=== PATIENT | female | born 1970 | race Caucasian/White ===

== ENCOUNTER 2020-05-01 10:26 | Emergency (ER) | payer OTHER, SELFPAY ==
--- NOTE | 2020-05-01 | XR_ITS ---
EXAMINATION: XR CHEST CLINICAL INFORMATION: Seizure COMPARISON: None TECHNIQUE: 2 views of the chest were obtained. FINDINGS: No significant abnormality is noted involving the heart, lungs, mediastinum, bony thorax or soft tissues. IMPRESSION: Unremarkable examination.
[2020-05-01 11:16] VITALS: BP 118/61; PULSE 69; RESP 18; TEMP 36.9; O2SAT 100; BMI 28.0
--- NOTE | 2020-05-01 12:29 | PC.NURSE ---
SEEN BY PROVIDER AT THIS TIME
[2020-05-01 13:33] VITALS: BP 120/75; PULSE 56; RESP 16; O2SAT 99
[2020-05-01] MEDS: Divalproex Sodium 250 MG TABLET.DR 750 MG PO (13:38)
[2020-05-01] MEDS: 0.9 % Sodium Chloride 1,000 ML 999 ML IVCONT (13:40)
--- NOTE | 2020-05-01 13:41 | PC.NURSE ---
IV EST 20 G R AC. BLOOD AND URINE TO LAB. MEDICATED PER ORDERS
[2020-05-01 13:46] LABS: MANUAL DIFF FLAG NO
[2020-05-01 13:50] LABS: Basophils Absolute Auto 0.1 X10*3/uL (0.0-0.2); Basophils Percent Auto 0.7 % (0-2); Eosinophils Absolute Auto 0.2 X10*3/uL (0.0-0.4); Eosinophils Percent Auto 3.2 % (0-4); Hematocrit 41.5 % (37-47); Hemoglobin 13.3 g/dl (12.0-16.0); Imm Gran Abs Auto 0.02 X10*3/uL (0.00-0.03); Imm Gran Pct Auto 0.3 % (0.0-0.4); Lymphocytes Absolute Auto 1.9 X10*3/uL (1.2-4.9); Lymphocytes Percent Auto 26.7 % (20-40); Mean Corpuscular Hemoglobin 31.7 pg (27.0-33.0); Mean Corpuscular Volume 98.8 fL (80-98); Mean Platelet Volume 9.5 fL (9.4-12.3); Monocytes Absolute Auto 0.7 X10*3/uL (0.1-1.2); Monocytes Percent Auto 10.2 % (2-11); Neutrophils Absolute Auto 4.2 X10*3/uL (2.0-8.3); Neutrophils Percent Auto 58.9 % (45-73); Platelet Count 243 X10*3/uL (160-400); Red Cell Distribution Width 13.3 % (11.0-16.0); White Blood Count 7.1 X10*3/uL (4.8-10.8)
[2020-05-01 14:08] LABS: Glucose Urine UA NEG (NEG); Leukocyte Esterase Urine NEG (NEG); Nitrite Urine NEG (NEG); PH 6.5 (5.0-8.0); Specific Gravity - Urine 1.015 (1.005-1.025); UPreg QC Valid YES; Urine Blood NEG (NEG); Urine Ketones NEG (NEG); Urine Pregnancy NEGATIVE (NEGATIVE); Urine Protein NEG (NEG-TRACE)
[2020-05-01 14:10] LABS: Appearance Urine CLEAR; Color Urine YELLOW; UACC Culture Trigger NO
[2020-05-01 14:20] LABS: Alanine Aminotransferase 12 U/L (0-31); Albumin Level 3.9 g/dL (3.5-5.0); Alkaline Phosphatase 54 U/L (39-117); Anion Gap 12 (12-20); Aspartate Amino Transferase 18 U/L (5-31); Bilirubin Direct 0.2 mg/dL (0.0-0.5); Bilirubin Total 0.4 mg/dL (0.0-1.0); Blood Urea Nitrogen 11 mg/dL (9-16); Carbon Dioxide 27 mmol/L (22-29); Chloride 102 mmol/L (96-108); Creatinine Clr Calc Pharmacy 87.5; Estimated Glomerular Filt Rate > 60; Glucose Random 90 mg/dL (60-115); Magnesium 1.9 mg/dL (1.6-2.6); Potassium 4.9 mmol/l (3.3-5.1); Sodium 136 mmol/L (135-145); Total Protein 7.7 g/dL (6.5-8.0)
[2020-05-01 14:24] LABS: B Type Natriuretic Peptide 44 pg/mL (<100); Troponin-I High Sensitivity < 3.5 ng/L (<3.5-17.0)
--- NOTE | 2020-05-01 14:44 | ED_ITS ---
HPI - Seizure General Chief Complaint: Seizure Stated Complaint: FEVER Time Seen by Provider: 05/01/20 12:26 Source: patient Mode of arrival: ambulatory History of Present Illness HPI Narrative: 49-year-old female with a past medical history of epilepsy, fibromyalgia complaining of seizure last night and last week s/p running out of Depakote 2 weeks ago. Reports difficulty with insurance and has been unable to get medications refilled. Normally takes 750 mg of Depakote b.i.d., over the past 2 weeks has been skipping a day due to decreased medications and no access to medical care. Denies head trauma during incident. Reports usually happens during sleep. Denies recent illness, fever, chills, CP/ SOB, abdominal pain, nausea /vomiting, weakness MD complaint: seizure Onset (ago): week(s) Related Data Previous Rx's Medication Instructions Recorded divalproex [Depakote] 750 mg PO BID 30 Days #90 tab 05/01/20 Allergies Allergy/AdvReac Type Severity Reaction Status Date / Time aspirin [ASA] Allergy Difficulty Verified 05/01/20 11:15 Swallowing Review of Systems Review of Systems: Yes all other systems are reviewed and are negative Constitutional: Constitutional: Reports as per HPI, Reports no additional constitutional complaints, Denies chills, Denies fever(s) and Reports headache(s) Eyes: Eyes: Reports as per HPI and Reports no additional eye complaints ENT: Reports system reviewed and no additional complaints, except as documented, Reports as per HPI, Reports headache(s) and Denies sore throat Cardiovascular: Cardiovascular: Reports as per HPI, Reports no additional cardiovascular complaints, Denies chest pain, Denies edema, Denies dyspnea and Denies dyspnea on exertion Respiratory: Respiratory: Reports as per HPI, Reports no additional respiratory complaints, Denies chest congestion, Denies cough, Denies dyspnea and Denies dyspnea on exertion Gastrointestinal: Gastrointestinal: Reports as per HPI, Denies abdominal pain, Denies diarrhea, Denies nausea and Denies vomiting Genitourinary: Genitourinary: Denies hematuria and Denies flank pain Musculoskeletal: Musculoskeletal: Reports as per HPI, Denies numbness and Denies tingling Integumentary/Breasts: Skin/Breast: Denies rash Neurologic: Denies Abnormal speech present, Reports headache(s), Denies numbness, Reports seizure-like activity, Denies Sensory deficit (Neuro) and Denies tingling Psychiatric: Psychiatric: Reports no additional psychiatric complaints PMFSH Past Medical History Attestation statement: The following information was validated with the patient. Medical History Fibromyalgia Seizure Social History Social History Advance Directives: No Advance Directives Information Provided: Yes Physical Exam Vital Signs and I&O and Narrative: Vital Signs and I&O: Vital Signs Temp 98.5 F 05/01/20 11:16 Pulse 56 05/01/20 13:33 Resp 16 05/01/20 13:33 BP 120/75 05/01/20 13:33 Pulse Ox 99 05/01/20 13:33 Intake & Output 04/30/20 05/01/20 05/01/20 18:59 06:59 18:59 Intake Total 1000 / 1000 Balance 1000 / 1000 Weight 69.4 kg Intake: Intake, IV Amoun t 1000 / 1000 0.9 % Sodium C hloride 1,000 ml 1000 / 1000 @ 999 mls/hr I VCONT .Q1H1M [facility] Rx#:[id number] Body Mass Index 28.0 Const: General: cooperative and healthy appearing Orientation/ consciousness: patient oriented x3 Limitations: no limitations HENMT: Head: Yes normal to inspection Ears: hearing grossly normal bilaterally General nose exam: Normal external nose present Face and sinus: Yes normal facial exam Eyes: General: appearance normal, both eyes and all related structures EOM: EOMs intact bilaterally Neck: Neck: Yes normal visual inspection Resp: Effort & Inspection: normal respiratory effort and no stridor Auscultation: clear to auscultation bilaterally, no crackles, no rales, no rhonchi and no wheezes Cardio: Rate: regular rate Heart sounds: S1 normal heart sound present and S2 normal heart sound present Peripheral pulses: Peripheral pulses 2+ throughout GI: Inspection: Yes normal to inspection Palpation (GI): Soft to palpation, nontender, no guarding and not rigid Skin: Wounds: no wounds Neuro: General: patient oriented x3 Cranial nerves: Yes CN's II-XII intact bilaterally Cognition (Neuro): normal cognition Speech: No Abnormal speech present Gait exam (Neuro): Normal gait present Motor exam (neuro): 5/5 motor strength present throughout Sensory Exam: No Sensory deficit (Neuro) Extrem: General: Yes normal to inspection Course Course Course Narrative: Reevaluation(s) Reevaluation #1: labs unremarkable, troponin negative, UA negative, depakote level low, CXR unremarkable Lab and imaging results discussed with patient including worrisome signs and symptoms and strict return precautions. She verbalized understanding feel safe for discharge. Neurology follow-up discussed Time: 14:56 MDM - Seizure MDM Narrative Medical decision making narrative: 49-year-old female with a past medical history of epilepsy, fibromyalgia complaining of seizure last night and last w [place] s/p running out of Depakote 2 weeks ago. on exam VSS, NAD/ well-appearing. No focal neuro deficits. Breakthrough seizures likely from medication noncompliance for low concern for intracranial abnormality, metabolic abnormalities or infectious etiology Plan: Labs, EKG, CXR, difficult level, give Depakote home medication, anticipate DC home Differential Diagnosis Differential diagnosis: Likely generalized seizure and epileptic seizure Medical Records Attestation: I reviewed the patient's medical records. Lab Data Result diagrams: 05/01/20 13:31 05/01/20 13:31 Labs: Lab Results 05/01/20 05/01/20 05/01/20 Range/Units 13:22 13:31 13:31 WBC 7.1 (4.8-10.8) X10*3/uL RBC 4.20 (4.20-5.50) X10*6/uL Hgb 13.3 (12.0-16.0) g/dl Hct 41.5 (37-47) % MCV 98.8 H (80-98) fL MCH 31.7 (27.0-33.0) pg MCHC 32.0 (31.0-35.0) g/dl RDW 13.3 (11.0-16.0) % Plt Count 243 (160-400) X10*3/uL MPV 9.5 (9.4-12.3) fL Immature Gran % (Auto) 0.3 (0.0-0.4) % Neut % (Auto) 58.9 (45-73) % Lymph % (Auto) 26.7 (20-40) % [place] % (Auto) 10.2 (2-11) % Eos % (Auto) 3.2 (0-4) % Baso % (Auto) 0.7 (0-2) % Neut # (Auto) 4.2 (2.0-8.3) X10*3/uL Lymph # (Auto) 1.9 (1.2-4.9) X10*3/uL [place] # (Auto) 0.7 (0.1-1.2) X10*3/uL Eos # (Auto) 0.2 (0.0-0.4) X10*3/uL Baso # (Auto) 0.1 (0.0-0.2) X10*3/uL Abs Immat Gran (auto) 0.02 (0.00-0.03) X10*3/uL Absolute Nucleated RBC 0.000 (0.0-0.012) X10*3/uL Nucleated RBC % (auto) 0.0 (0.0-0.2) /100WBC Sodium 136 (135-145) mmol/L Potassium 4.9 (3.3-5.1) mmol/l Chloride 102 (96-108) mmol/L Carbon Dioxide 27 (22-29) mmol/L Anion Gap 12 (12-20) BUN 11 (9-16) mg/dL Creatinine 0.71 (0.5-1.4) mg/dL Estim Creat Clear Calc 87.5 Estimated GFR > 60 Random Glucose 90 (60-115) mg/dL Calcium 9.0 (8.4-10.2) mg/dL Magnesium 1.9 (1.6-2.6) mg/dL Total Bilirubin 0.4 (0.0-1.0) mg/dL Direct Bilirubin 0.2 (0.0-0.5) mg/dL AST 18 (5-31) U/L ALT 12 (0-31) U/L Alkaline Phosphatase 54 (39-117) U/L Troponin I High Sens (<3.5-17.0) ng/L B-Natriuretic Peptide (<100) pg/mL Total Protein 7.7 (6.5-8.0) g/dL Albumin 3.9 (3.5-5.0) g/dL Urine Color YELLOW Urine Appearance CLEAR Urine pH 6.5 (5.0-8.0) Ur Specific [place] 1.015 (1.005-1.025) Urine Protein NEG (NEG-TRACE) MG/DL Urine Glucose (UA) NEG (NEG) MG/DL Urine Ketones NEG (NEG) MG/DL Urine Blood NEG (NEG) Urine Nitrite NEG (NEG) Ur Leukocyte Esterase NEG (NEG) Urine Test NEGATIVE (NEGATIVE) Valproic Acid (50.0-100.0) mcg/mL 05/01/20 05/01/20 05/01/20 Range/Units 13:32 13:32 13:32 WBC (4.8-10.8) X10*3/uL RBC (4.20-5.50) X10*6/uL Hgb (12.0-16.0) g/dl Hct (37-47) % MCV (80-98) fL MCH (27.0-33.0) pg MCHC (31.0-35.0) g/dl RDW (11.0-16.0) % Plt Count (160-400) X10*3/uL MPV (9.4-12.3) fL Immature Gran % (Auto) (0.0-0.4) % Neut % (Auto) (45-73) % Lymph % (Auto) (20-40) % [place] % (Auto) (2-11) % Eos % (Auto) (0-4) % Baso % (Auto) (0-2) % Neut # (Auto) (2.0-8.3) X10*3/uL Lymph # (Auto) (1.2-4.9) X10*3/uL [place] # (Auto) (0.1-1.2) X10*3/uL Eos # (Auto) (0.0-0.4) X10*3/uL Baso # (Auto) (0.0-0.2) X10*3/uL Abs Immat Gran (auto) (0.00-0.03) X10*3/uL Absolute Nucleated RBC (0.0-0.012) X10*3/uL Nucleated RBC % (auto) (0.0-0.2) /100WBC Sodium (135-145) mmol/L Potassium (3.3-5.1) mmol/l Chloride (96-108) mmol/L Carbon Dioxide (22-29) mmol/L Anion Gap (12-20) BUN (9-16) mg/dL Creatinine (0.5-1.4) mg/dL Estim Creat Clear Calc Estimated GFR Random Glucose (60-115) mg/dL Calcium (8.4-10.2) mg/dL Magnesium (1.6-2.6) mg/dL Total Bilirubin (0.0-1.0) mg/dL Direct Bilirubin (0.0-0.5) mg/dL AST (5-31) U/L ALT (0-31) U/L Alkaline Phosphatase (39-117) U/L Troponin I High Sens < 3.5 (<3.5-17.0) ng/L B-Natriuretic Peptide 44 (<100) pg/mL Total Protein (6.5-8.0) g/dL Albumin (3.5-5.0) g/dL Urine Color Urine Appearance Urine pH (5.0-8.0) Ur Specific [place] (1.005-1.025) Urine Protein (NEG-TRACE) MG/DL Urine Glucose (UA) (NEG) MG/DL Urine Ketones (NEG) MG/DL Urine Blood (NEG) Urine Nitrite (NEG) Ur Leukocyte Esterase (NEG) Urine Test (NEGATIVE) Valproic Acid < 2.0 L (50.0-100.0) mcg/mL Discharge Plan Discharge Clinical Impression: Epileptic seizure Patient Disposition: Home, Self-Care Instructions: Epilepsy (ED) Additional Instructions: you need to start taking your seizure medications correctly. You need to establish care with a neurologist / PCP see you can have her medications refilled appropriately If you continue to have seizures, have another seizure, hit her head, develops fever, chest pain, shortness of breath return to the ED immediately Prescriptions: New divalproex [Depakote] 500 mg tablet,delayed release (DR/EC) 750 mg PO BID 30 Days Qty: 90 RF: 0 Referrals: Rajinder Byrd MD [Physician] - 2 days Print Language: Taiwanese
[2020-05-01 14:48] LABS: Valproate < 2.0 mcg/mL (50.0-100.0)
[2020-05-01 15:40] VITALS: BP 125/72; PULSE 57
--- NOTE | 2020-05-01 15:40 | PC.NURSE ---
CLEARED FOR DC BY PROVIDER
== END 2020-05-01 15:47 | disposition home or self-care (01) ==
PROVIDERS: Physician Assistant; Emergency Provider Emergency Medicine; PCP Nurse Practitioner Family
DX: G40.909 Epilepsy, unspecified, not intractable, without status epilepticus (principal); Z79.899 Other long term (current) drug therapy
CPT/HCPCS: 36415; 71046; 80048; 80076; 80164; 81003; 81025; 83735; 83880; 84484; 85025; 96360; 99284

== ENCOUNTER 2020-07-03 09:18 | Outpatient (REF) | payer OTHER, SELFPAY ==
--- NOTE | 2020-07-03 09:25 | XR_ITS ---
EXAMINATION: BILATERAL FOOT X-RAY CLINICAL INFORMATION: Pain COMPARISON: None TECHNIQUE: 3 views each foot FINDINGS: Bone alignment is normal. No fracture or dislocation is seen. The joint spaces are normal. There are bilateral plantar calcaneal spurs. Soft tissues are otherwise normal. XR/XR foot RT min 3V IMPRESSION: Bilateral plantar calcaneal spurs.
--- NOTE | 2020-07-03 09:25 | XR_ITS ---
EXAMINATION: BILATERAL FOOT X-RAY CLINICAL INFORMATION: Pain COMPARISON: None TECHNIQUE: 3 views each foot FINDINGS: Bone alignment is normal. No fracture or dislocation is seen. The joint spaces are normal. There are bilateral plantar calcaneal spurs. Soft tissues are otherwise normal. XR/XR foot LT min 3V IMPRESSION: Bilateral plantar calcaneal spurs.
== END 2020-07-03 09:19 | disposition home or self-care (01) ==
LOC: HO.XRAY 09:18
PROVIDERS: Visit Provider Registered Nurse
DX: G89.29 Other chronic pain (principal); M79.671 Pain in right foot; M79.672 Pain in left foot
CPT/HCPCS: 73630

== ENCOUNTER 2020-08-18 10:43 | Outpatient (REF) | payer OTHER, SELFPAY | END 2020-08-18 10:44 | disposition home or self-care (01) | LOC: HO.LAB 10:43 | PROVIDERS: Visit Provider Internal Medicine | DX: Z20.822 Contact with and (suspected) exposure to COVID-19 (principal) | CPT/HCPCS: 36415; C9803; U0003 ==

== ENCOUNTER 2020-08-29 10:08 | Outpatient (REF) | payer OTHER, SELFPAY | END 2020-08-29 10:09 | disposition home or self-care (01) | LOC: HO.LAB 10:08 | PROVIDERS: Visit Provider Internal Medicine | DX: Z20.822 Contact with and (suspected) exposure to COVID-19 (principal) | CPT/HCPCS: 36415; C9803; U0003; U0005 ==

== ENCOUNTER 2020-12-14 14:31 | Outpatient (REF) | payer OTHER, SELFPAY | END 2020-12-14 14:32 | disposition home or self-care (01) | LOC: HO.LAB 14:31 | PROVIDERS: Visit Provider Internal Medicine | DX: Z20.822 Contact with and (suspected) exposure to COVID-19 (principal) | CPT/HCPCS: C9803; U0003; U0005 ==

== ENCOUNTER 2021-08-15 12:52 | Outpatient (REF) | payer OTHER, SELFPAY ==
[2021-08-16 10:53] LABS: CT PCR NOT DETECTED (Not Detect.); NG PCR NOT DETECTED (Not Detect.)
[2021-08-20 12:56] LABS: HPV mRNA E6/E7 rflx Not Detected (Not Detected)
== END 2021-08-15 12:53 | disposition home or self-care (01) ==
LOC: HO.LAB 12:52
PROVIDERS: PCP Registered Nurse; Visit Provider Obstetrics & Gynecology
DX: Z01.411 Encounter for gynecological examination (general) (routine) with abnormal findings (principal); Z11.51 Encounter for screening for human papillomavirus (HPV); N93.9 Abnormal uterine and vaginal bleeding, unspecified
CPT/HCPCS: 87491; 87591; 87624; 88142

== ENCOUNTER 2021-09-04 14:57 | Outpatient (REF) | payer OTHER, SELFPAY | END 2021-09-04 14:58 | disposition home or self-care (01) | LOC: HO.LAB 14:57 | PROVIDERS: PCP Registered Nurse; Visit Provider Obstetrics & Gynecology | DX: N93.9 Abnormal uterine and vaginal bleeding, unspecified (principal) | CPT/HCPCS: 58100; 88305 ==

== ENCOUNTER 2021-09-12 13:33 | Outpatient (REF) | payer OTHER, SELFPAY ==
--- NOTE | ~2021-09-12 | US_ITS ---
EXAMINATION: US PELVIS CLINICAL INFORMATION: Abnormal uterine and vaginal bleeding. COMPARISON: Previous pelvic ultrasound June [address] of the abdomen and pelvis November 2018 TECHNIQUE: Ultrasound of the pelvis is performed using both transabdominal and transvaginal transducers along with Doppler. Transvaginal imaging is performed due to inadequate visualization transabdominally. FINDINGS: The uterus is anteverted and measures 10.6 x 5 x 6.4 cm in dimension. No focal uterine lesion is seen. There are multiple mixed hypoechoic and hyperechoic lesions in the uterus suggestive of fibroids. At least 7 focal uterine lesions are seen. This is increased from 5 on the June 2018 exam. These measure 3.2 x 3.2 x 3.7 cm in the left anterior lower uterine segment compared to 2.8 x 3 x 2.9 cm. 3.6 x 2.2 x 2.8 cm in the right posterior lower uterine segment compared to 2.8 x 3 x 3.9 cm on previous exam. 3.5 x 2.9 x 3.4 cm in the posterior uterine body compared to 3.6 x 3.4 cm on previous exam. New intramural 1.3 x 1.8 x 1.2 cm fibroid in the upper posterior uterine body and 1.2 x 1.2 x 1.4 cm in the upper posterior uterine body near the endometrium. 2.6 x 1.5 x 2.7 cm in the posterior uterine fundus compared to 2.1 x 1.9 x 1.6 cm and 2.3 x 2.2 x 2.2 cm in the left anterior uterine fundus. The endometrium does not appear thickened. Endometrial thickness measures 0.9 cm. There are nabothian cysts in the cervix. The right ovary measures 3 x 1.5 x 2.7 cm. There is a 2.4 x 1.7 x 1.7 cm simple right ovarian cyst. The left ovary is normal-appearing and measures 2.6 x 1 x 1.9 cm. There is no fluid in the pelvis. US/US pelvic and transvaginal IMPRESSION: Enlarged fibroid uterus. Small simple right ovarian cyst.
== END 2021-09-12 13:34 | disposition home or self-care (01) ==
LOC: HO.US 13:33
PROVIDERS: Visit Provider Obstetrics & Gynecology
DX: K43.2 Incisional hernia without obstruction or gangrene (principal); N93.9 Abnormal uterine and vaginal bleeding, unspecified
CPT/HCPCS: 76830; 76856; 99202

== ENCOUNTER 2021-09-19 15:47 | Outpatient (REF) | payer OTHER, SELFPAY ==
--- NOTE | ~2021-09-19 | MM_ITS ---
EXAMINATION: MM SCREENING DIGITAL BREAST TOMOSYNTHESIS, BILATERAL CLINICAL INFORMATION: Screening. Asymptomatic. The lifetime risk of breast cancer based on the Tyrer-Cuzick Model is 8.1%. COMPARISON: Mammography: 11/01/2018 and studies dating back to 09/27/2010. TECHNIQUE: Digital breast tomosynthesis was performed in both the craniocaudal and mediolateral oblique views along with computer-aided detection (CAD). Synthesized 2D images were generated from the tomosynthesis. FINDINGS: There are scattered areas of fibroglandular density (ACR BI-RADS breast composition Category b). There is a stable parenchymal pattern of the left breast with no new abnormal dominant mass or suspicious grouping of microcalcifications. Within the anterior lateral aspect of the right breast, there is a region of architectural distortion which is more prominent than on the prior study and for which a spot compression view and possible ultrasound are recommended. I do not definitely see a correlate on the mediolateral oblique projection. MM/MM tomosynthesis screening BI IMPRESSION: Right breast density for further evaluation as described above. ASSESSMENT: BI-RADS 0: Incomplete - Need Additional Imaging Evaluation RECOMMENDATION: 1. Additional views of the right breast. 2. Targeted ultrasound if warranted after review of the additional views. 3. Radiology department staff will contact the patient for additional imaging.
== END 2021-09-19 15:48 | disposition home or self-care (01) ==
LOC: HO.MAMMO 15:47
PROVIDERS: Visit Provider Obstetrics & Gynecology
DX: Z12.31 Encounter for screening mammogram for malignant neoplasm of breast (principal)
CPT/HCPCS: 77063; 77067

== ENCOUNTER → 2021-09-26 15:40 | Outpatient (BNVA) | payer OTHER, SELFPAY | PROVIDERS: Visit Provider Obstetrics & Gynecology ==

== ENCOUNTER 2021-10-01 14:39 | Outpatient (REF) | payer OTHER, SELFPAY ==
--- NOTE | ~2021-10-01 | MM_ITS ---
EXAMINATION: MM DIAGNOSTIC DIGITAL BREAST TOMOSYNTHESIS, RIGHT CLINICAL INFORMATION: Question of subtle architectural changes anterior lateral right breast on recent screening mammography. COMPARISON: Mammography: 09/19/2021, 11/01/2018, 08/19/2016, 06/29/2014 TECHNIQUE: Digital breast tomosynthesis is performed. 2D images are generated from the tomosynthesis. The following views are obtained: Exaggerated CC, spot CC, rolled CC x2. FINDINGS: There are scattered areas of fibroglandular density (ACR BI-RADS breast composition Category b). The additional views show no focal architectural abnormality, mass, or developing density from prior studies. There are no significant changes. Results are discussed with the patient at time of visit. MM/MM tomosynthesis added views R IMPRESSION: Additional views show no significant changes from prior studies. No architectural abnormality. ASSESSMENT: BI-RADS 1: Negative RECOMMENDATION: Routine annual mammography screening. This patient's information was entered into a reminder system with a target due date for their next mammogram.
== END 2021-10-01 14:40 | disposition home or self-care (01) ==
LOC: HO.MAMMO 14:39
PROVIDERS: Visit Provider Obstetrics & Gynecology
DX: N64.89 Other specified disorders of breast (principal)
CPT/HCPCS: 77061; 77065

== ENCOUNTER 2021-10-07 11:45 | Outpatient (REF) | payer OTHER, SELFPAY ==
--- NOTE | ~2021-10-07 | CT_ITS ---
EXAMINATION: CT ABDOMEN AND PELVIS WITH CONTRAST CLINICAL INFORMATION: Incisional hernia without obstruction or gangrene. COMPARISON: None TECHNIQUE: Multidetector volumetric images were obtained from the superior aspect of the liver through the pubic symphysis following administration 85 mL of Omnipaque 350 intravenous and 500 mL oral contrast. Sagittal and coronal reformatted images were obtained on the technologist's workstation. Oral contrast: No This CT examination was performed using dose optimization techniques as appropriate, variously including the following: *Automated exposure control *Adjustment of mA and/or kV according to patient size (this includes techniques or standardized protocols for targeted exams where dose is matched to indication/reason for exam; i.e. extremities or head) *Use of iterative reconstruction technique DLP: 443 mGy-cm FINDINGS: LUNG BASES: Minimal atelectatic changes are seen in left lung base. Heart size is normal. LIVER, GALLBLADDER, AND BILIARY TREE: The liver is normal in size, shape, and attenuation. No focal hepatic lesion or biliary ductal dilatation is present. The gallbladder has been surgically removed. PANCREAS: Unremarkable. SPLEEN: Unremarkable. ADRENAL GLANDS: Unremarkable. KIDNEYS AND URETERS: The kidneys are normal in size, shape, and attenuation. No hydronephrosis, hydroureter, or calculi seen. No perinephric stranding. BLADDER: Unremarkable. GASTROINTESTINAL TRACT: There is scattered stool and oral contrast seen throughout the colon without distention. The small bowel loops are of normal caliber. Appendix is of normal caliber. No inflammatory process, free air or free fluid seen. ABDOMINAL WALL: A small umbilical hernia containing fat is noted. LYMPH NODES: Unremarkable. VASCULAR: Unremarkable. PELVIC VISCERA: The uterus is enlarged and lumpy bumpy with multiple hypodense fibroids, the largest along the posterior lower body of the uterus measuring 4 cm. There is no free fluid. No adnexal mass is seen. OSSEOUS STRUCTURES: Unremarkable. CT/CT abdomen pelvis w con IMPRESSION: Enlarged lumpy bumpy uterus suggestive of fibroid disease. The largest fibroid measures 4 cm. Mild hypervascularity is present. Cholecystectomy. Small umbilical hernia containing fat. Fleischner guidelines were followed.
[2021-10-07 12:14] LABS: Blood Urea Nitrogen 12 mg/dL (9-16); Estimated Glomerular Filt Rate > 60
[2021-10-07] MEDS: iohexoL 350 MG/ML 100 ML INFUS..BTL 85 ML IV (15:33)
[2021-10-07] MEDS: Barium Sulfate Oral (Vanilla) 450 ML ORAL.SUSP 900 ML PO (15:34)
== END 2021-10-07 11:46 | disposition home or self-care (01) ==
LOC: HO.CT 11:45
PROVIDERS: Visit Provider Surgery
DX: K43.2 Incisional hernia without obstruction or gangrene (principal)
CPT/HCPCS: 36415; 74177; 82565; 84520; Q9967

== ENCOUNTER → 2021-10-22 15:46 | Outpatient (BNVA) | payer OTHER, SELFPAY | PROVIDERS: Visit Provider Surgery | DX: K42.9 Umbilical hernia without obstruction or gangrene (principal) | CPT/HCPCS: 99212 ==

== ENCOUNTER → 2021-12-02 15:20 | Outpatient (BNVA) | payer OTHER, SELFPAY | PROVIDERS: Visit Provider Nurse Practitioner | DX: Z12.11 Encounter for screening for malignant neoplasm of colon (principal); Z86.19 Personal history of other infectious and parasitic diseases | CPT/HCPCS: 99202 ==

== ENCOUNTER 2021-12-03 15:45 | Outpatient (REF) | payer OTHER, SELFPAY ==
[2021-12-03 15:56] LABS: MANUAL DIFF FLAG NO
[2021-12-03 16:04] LABS: Basophils Percent Auto 0.5 % (0-2); Eosinophils Absolute Auto 0.2 X10*3/uL (0.0-0.4); Eosinophils Percent Auto 2.7 % (0-4); Hematocrit 37.2 % (37.0-47.0); Hemoglobin 11.8 g/dl (12.0-16.0); Imm Gran Abs Auto 0.04 X10*3/uL (0.00-0.03); Imm Gran Pct Auto 0.5 % (0.0-0.4); Lymphocytes Absolute Auto 1.8 X10*3/uL (1.2-4.9); Lymphocytes Percent Auto 23.9 % (20-40); Mean Corpuscular HGB Conc 31.7 g/dl (31.0-35.0); Mean Corpuscular Hemoglobin 30.8 pg (27.0-33.0); Mean Corpuscular Volume 97.1 fL (80.0-98.0); Mean Platelet Volume 9.2 fL (9.4-12.3); Monocytes Absolute Auto 0.9 X10*3/uL (0.1-1.2); Monocytes Percent Auto 11.8 % (2-11); Neutrophils Absolute Auto 4.7 x10*3/uL (2.0-8.3); Neutrophils Percent Auto 60.6 % (45-73); Platelet Count 235 X10*3/uL (160-400); Red Blood Count 3.83 X10*6/uL (4.20-5.50); Red Cell Distribution Width 14.6 % (11.0-16.0); White Blood Count 7.7 X10*3/uL (4.8-10.8)
[2021-12-03 16:28] LABS: Alanine Aminotransferase 12 U/L (0-31); Albumin Level 3.4 g/dL (3.5-5.0); Alkaline Phosphatase 53 U/L (39-117); Anion Gap 9 (12-20); Aspartate Amino Transferase 18 U/L (5-31); Bilirubin Total 0.2 mg/dL (0.0-1.0); Blood Urea Nitrogen 15 mg/dL (9-16); Calcium 8.6 mg/dL (8.4-10.2); Carbon Dioxide 28 mmol/L (22-29); Chloride 102 mmol/L (96-108); Estimated Glomerular Filt Rate > 60; Glucose Random 82 mg/dL (60-115); Potassium 4.4 mmol/L (3.3-5.1); Sodium 135 mmol/L (135-145)
[2021-12-04 04:16] LABS: HBS Num1 3.15 mIU/mL (0-7.99); HBc Num1 0.11 S/CO (0.00-0.79); HBsAGNum1 0.18 S/CO (0.00-0.99); Hepatitis B Core Antibody Nonreactive (Nonreactive); Hepatitis B Surface Antigen Negative (Negative); ~HepC Num1 0.12 S/CO (0.00-0.79); ~Hepatitis B Surface Antibody NONREACTIVE (Nonreactive); ~Hepatitis C Antibody Nonreactive (Nonreactive)
[2021-12-04 04:17] LABS: Hepatitis A Antibody IgM 0.37 Index (0-0.79); ~Hepatitis A Antibody IgM Nonreactive (Nonreactive)
== END 2021-12-03 15:46 | disposition home or self-care (01) ==
LOC: HO.LAB 15:45
PROVIDERS: Visit Provider Nurse Practitioner
DX: Z12.11 Encounter for screening for malignant neoplasm of colon (principal); Z86.19 Personal history of other infectious and parasitic diseases
CPT/HCPCS: 36415; 80053; 85025; 86704; 86706; 86709; 86803; 87340

== ENCOUNTER 2022-02-22 07:28 | Outpatient (REF) | payer OTHER, SELFPAY ==
[2022-02-22 07:49] LABS: MANUAL DIFF FLAG NO
[2022-02-22 08:35] LABS: Basophils Percent Auto 0.4 % (0-2); Eosinophils Absolute Auto 0.2 X10*3/uL (0.0-0.4); Eosinophils Percent Auto 3.3 % (0-4); Hematocrit 37.6 % (37.0-47.0); Imm Gran Abs Auto 0.02 X10*3/uL (0.00-0.03); Imm Gran Pct Auto 0.4 % (0.0-0.4); Lymphocytes Absolute Auto 1.5 X10*3/uL (1.2-4.9); Lymphocytes Percent Auto 29.7 % (20-40); Mean Corpuscular HGB Conc 31.9 g/dl (31.0-35.0); Mean Corpuscular Hemoglobin 30.6 pg (27.0-33.0); Mean Corpuscular Volume 95.9 fL (80.0-98.0); Mean Platelet Volume 9.6 fL (9.4-12.3); Monocytes Absolute Auto 0.6 X10*3/uL (0.1-1.2); Monocytes Percent Auto 11.7 % (2-11); Neutrophils Absolute Auto 2.8 x10*3/uL (2.0-8.3); Neutrophils Percent Auto 54.5 % (45-73); Platelet Count 174 X10*3/uL (160-400); Red Blood Count 3.92 X10*6/uL (4.20-5.50); Red Cell Distribution Width 13.8 % (11.0-16.0); White Blood Count 5.1 X10*3/uL (4.8-10.8)
[2022-02-22 08:44] LABS: Estimated Average Glucose 111 mg/dL; Hemoglobin A1c % 5.5 %
[2022-02-22 09:03] LABS: Alanine Aminotransferase 21 U/L (0-31); Albumin Level 3.5 g/dL (3.5-5.0); Alkaline Phosphatase 53 U/L (39-117); Anion Gap 13 (12-20); Aspartate Amino Transferase 22 U/L (5-31); Bilirubin Total 0.2 mg/dL (0.0-1.0); Blood Urea Nitrogen 15 mg/dL (9-16); Calcium 8.9 mg/dL (8.4-10.2); Carbon Dioxide 26 mmol/L (22-29); Chloride 106 mmol/L (96-108); Cholesterol 210 mg/dL; Estimated Glomerular Filt Rate > 60; Glucose Random 89 mg/dL (60-115); HDL Cholesterol 47 mg/dL; LDL Cholesterol Calculated 137 mg/dl; Potassium 4.4 mmol/L (3.3-5.1); Sodium 141 mmol/L (135-145); Total Protein 6.9 g/dL (6.5-8.0); Triglycerides 133 mg/dL
[2022-02-22 09:25] LABS: TSH reflex Free T4 2.68 uIU/mL (0.32-4.0)
[2022-02-24 04:46] LABS: HIV AB/AG Nonreactive (Nonreactive); HIV Num 1 0.06 S/CO (0.00-0.99)
[2022-02-24 04:47] LABS: ~HepC Num1 0.08 S/CO (0.00-0.79); ~Hepatitis C Antibody Nonreactive (Nonreactive)
[2022-02-24 06:19] LABS: Syphilis Screen Nonreactive (Nonreactive)
== END 2022-02-22 07:29 | disposition home or self-care (01) ==
LOC: HO.LAB 07:28
PROVIDERS: PCP Registered Nurse; Visit Provider Registered Nurse
DX: Z00.00 Encounter for general adult medical examination without abnormal findings (principal); Z11.4 Encounter for screening for human immunodeficiency virus [HIV]; A04.8 Other specified bacterial intestinal infections
CPT/HCPCS: 36415; 80053; 80061; 83036; 84443; 85025; 86780; 86803; 87389

== ENCOUNTER 2022-04-01 15:22 | Outpatient (REF) | payer OTHER, SELFPAY ==
--- NOTE | ~2022-04-01 | US_ITS ---
EXAMINATION: US PELVIS CLINICAL INFORMATION: Abnormal bleeding COMPARISON: Previous CT of the abdomen and pelvis most recent 2021 and pelvic ultrasound August 2021 TECHNIQUE: Ultrasound of the pelvis is performed using both transabdominal and transvaginal transducers along with Doppler. Transvaginal imaging is performed due to inadequate visualization transabdominally. FINDINGS: Uterus is anteverted and measures 9.4 x 6.7 x 6.1 m dimension. There are multiple uterine fibroids. Largest fibroids measure 2.5 x 2.2 x 3 cm in the posterior uterine body, 2.6 x 1.8 x 2.9 cm in the anterior uterine body and 2.1 x 1.6 x 1.9 cm in the posterior uterine fundus. Endometrial thickness is normal measuring 0.7 cm. The right ovary is not seen. The left ovary is normal and measures 2 x 0.8 x 1 cm. There is no fluid in the pelvis. US/US pelvic and transvaginal IMPRESSION: Fibroid uterus. Normal thickness endometrium measuring 0.7 cm. Right ovary not seen. Normal left ovary.
== END 2022-04-01 15:23 | disposition home or self-care (01) ==
LOC: HO.US 15:22
PROVIDERS: Visit Provider Obstetrics & Gynecology
DX: N93.9 Abnormal uterine and vaginal bleeding, unspecified (principal)
CPT/HCPCS: 76830; 76856

== ENCOUNTER → 2022-04-07 15:42 | Outpatient (BNVA) | payer OTHER, SELFPAY | PROVIDERS: PCP Registered Nurse; Visit Provider Obstetrics & Gynecology | DX: D21.9 Benign neoplasm of connective and other soft tissue, unspecified (principal) | CPT/HCPCS: 99212 ==

== ENCOUNTER 2022-05-28 10:34 | Day surgery (SDC) | payer OTHER, SELFPAY ==
[2022-05-23 15:29] VITALS: BMI 26.6
--- NOTE | 2022-05-27 12:05 | P.CONAN_ITS ---
HPI - Anesthesia Eval Consult details Narrative: 51yo F for Colonoscopy PMFSH Active Problems Active Problems: All Active Problems (Updated 05/23/22 @ 15:48 by Michelle Ordonez RN) Female pelvic pain (Acute) Well woman exam (Acute) Abnormal uterine bleeding (AUB) (Acute) Incisional hernia (Acute) Colon cancer screening (Acute) History of hepatitis (Acute) Myoma (Acute) Past Medical History Medical History Anxiety disorder Fibromyalgia Migraine Seizure Surgical History Surgical History History of cholecystectomy History of tubal ligation Social History Social History Household Members: Spouse Household Members Other:: son Housing: House Alcohol intake: current Alcohol intake frequency: holidays/special occasions only Patient Tobacco Use Status: Never used Tobacco Current occupational status: employed 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 Sexual orientation: Straight/Heterosexual Gender identity: Female Meds Allergies Allergy/AdvReac Type Severity Reaction Status Date / Time aspirin [ASPIRIN] Allergy Unknown SWELLING, Verified 05/28/22 10:57 facial swelling Home Medications Medication Instructions Recorded Confirmed Last Taken Type omeprazole 20 mg capsule,delayed 20 mg PO DAILY 09/12/21 05/28/22 Unknown History release duloxetine 30 mg capsule,delayed 1 cap PO DAILY 05/23/22 05/28/22 Unknown History release Exam Exam Date and Time: May 27, 2022 1205 Height,Weight and Vital Signs: Height 5 ft 2.5 in Weight 67.132 kg Assessment and Plan Assessment Anesthesia Assessment: Chart Reviewed
[2022-05-28 11:14] VITALS: BP 113/69; PULSE 65; TEMP 36.2; O2SAT 99
[2022-05-28] MEDS: Lactated Ringers 1,000 ML 100 ML IVCONT (11:27)
--- NOTE | 2022-05-28 12:20 | HO.ANESPROP2 ---
[facility] Active Problems Active Problems: All Active Problems (Updated 05/23/22 @ 15:48 by Michelle Ordonez RN) Female pelvic pain (Acute) Well woman exam (Acute) Abnormal uterine bleeding (AUB) (Acute) Incisional hernia (Acute) Colon cancer screening (Acute) History of hepatitis (Acute) Myoma (Acute) Past Medical History Medical History Anxiety disorder Fibromyalgia Migraine Seizure Family History Family history of problems with anesthesia: No Surgical History Surgical History History of cholecystectomy History of tubal ligation History of Problems with Anesthesia: No Social History Social History Household Members: Spouse Household Members Other:: son Housing: House Alcohol intake: current Alcohol intake frequency: holidays/special occasions only Patient Tobacco Use Status: Never used Tobacco Use of substances other than those prescribed or required for medical reasons: No Are you DNR?: No Advance Directives: No Advance Directives Information Provided: Yes Current occupational status: employed 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 Sexual orientation: Straight/Heterosexual Gender identity: Female Meds Allergies Allergy/AdvReac Type Severity Reaction Status Date / Time aspirin [ASPIRIN] Allergy Unknown SWELLING, Verified 05/28/22 10:57 facial swelling Active Medications: Current Medications Lactated Ringer's (Lr) 1,000 mls @ 100 mls/hr IVCONT .Q10H ZANDRA Last Admin: 05/28/22 11:27 Dose: 100 mls/hr Home Medications Medication Instructions Recorded Confirmed Last Taken Type omeprazole 20 mg capsule,delayed 20 mg PO DAILY 09/12/21 05/28/22 Unknown History release duloxetine 30 mg capsule,delayed 1 cap PO DAILY 05/23/22 05/28/22 Unknown History release Exam Exam Date and Time: May 28, 2022 1220 Height,Weight and Vital Signs: Height 5 ft 2.5 in Weight 67.132 kg Last Vital Signs Temp 97.1 F 05/28/22 11:14 Pulse 65 05/28/22 11:14 BP 113/69 05/28/22 11:14 Pulse Ox 99 05/28/22 11:14 O2 Del Method 05/28/22 11:14 Airway Mallampati Class: II TM Dist: >3cm Neck ROM: Full Assessment and Plan Assessment Anesthesia Assessment: Anesthesia Plan Discussed and Chart Reviewed Final Anesthetic Review Family History of Problems with Anesthesia: No History of Problems with Anesthesia: No NPO: Yes ASA Class: II Final Preanesthetic Review: No Changes in Pt Med Stat, Meds/Allgs Chart Reviewed, Consent Obtained/Reviewed and Anes Risks/Benef Reviewed Patient Risk: Low Procedure Risk: Low Anesthetic Plan Anesthetic Plan: MAC: Disposition: Standard PACU
--- NOTE | 2022-05-28 12:32 | MHC.SHP ---
Pre-Procedural Eval Section A Date of Service: 05/28/22 Section B Chief Complaint: screening Details of Present Illness: 51y.o here for screening colonoscopy. No gastrointestinal sx at baseline. Relevant Family History (Specify if Yes): No Present Medications: see Short Stay Collaborative assessment Allergies: Allergies Allergy/AdvReac Type Severity Reaction Status Date / Time aspirin [ASPIRIN] Allergy Unknown SWELLING, Verified 05/28/22 10:57 facial swelling Review of Systems Review of Systems Comment: 10 point ROS negative Exam Exam Comment: Gen appear: No acute distress, well nourished HEENT: no icterus Chest: No overt resp distress CVS: S1/S2, regular Abd: soft, nontender, nondistended Psych: Stable affect, answering questions appropriately Neuro: A/Ox3 noted to move all extremities spontaneously Ext: no peripheral edema Plan Diagnosis/Plan: Unchanged I have reviewed the history and physical and performed a pertinent physical examination on my patient. No changes have occurred unless specified.
--- NOTE | 2022-05-28 13:05 | P.OP_ITS ---
Operative Note Operative Note Date of Service: 05/28/22 Narrative: Procedure: Colonoscopy Indication: Screening Endoscopist: Peace Murphy MD Anesthesia Provider: Adriana Noel CRNA Anesthesia type: MAC [General Anesthesia] Instrument: Olympus [id number] Consent: Indication, risks vs benefits, and alternatives were discussed with the patient who gave written informed consent to proceed. EKG, pulse, pulse oximetry and blood pressure were monitored throughout the procedure. Please see anesthesia flowsheet. Procedure: The patient was brought to the procedure room and placed in the left lateral decubitus position. IV medications were administered by the anesthesia provider in attendance. A digital rectal exam was performed which was normal. The colonoscope was then inserted through the anus and advanced through the colon to the cecum at 75 cm. Ileocecal valve and appendiceal orifice identified. Mucosa was carefully examined under high definition white light as the instrument was slowly withdrawn in a retrograde panoramic fashion. Retroflexion was performed in rectum. The procedure was not difficult. There were no immediate obvious complications. The quality of the prep was BBPS: 3+3+3 = excellent Withdrawal time 10 minutes. Limitations: No limitations. Findings: Mucosa: Normal to cecum. Protruding lesions: * 1sessile polyp of size 3 mm on IC valve. Cold snare polypectomy was performed. The polyp was completely removed and retrieved. * 1 sessile polyp of size 6 mm in transverse colon. Cold snare polypectomy was performed. The polyp was completely removed but not retrieved. * Medium internal hemorrhoids without stigmata of recent bleeding. Excavated lesions: * Moderate diverticulosis of left sided colon. Impression: 1. Normal colon mucosa 2. Total of 2 polyps removed from cecum (retrieved) and transverse colon (not retrieved). 3. Internal hemorrhoids 4. Diverticulosis Recommendations: - Follow path results. - Repeat colonoscopy in 7-10 years.
[2022-05-28 13:12] VITALS: BP 109/65; PULSE 84; RESP 16; TEMP 36.6; O2SAT 99
[2022-05-28 13:27] VITALS: BP 114/75; PULSE 58; RESP 17; TEMP 36.6; O2SAT 99
== END 2022-05-28 14:29 | disposition home or self-care (01) ==
PROVIDERS: PCP Registered Nurse; Visit Provider Internal Medicine
PROC: 0DJD8ZZ Inspection of Lower Intestinal Tract, Via Natural or Artificial Opening Endoscopic (ICD-10-PCS; CPT 45378; principal; 2022-05-28 11:50)
DX: Z12.11 Encounter for screening for malignant neoplasm of colon (principal); K63.5 Polyp of colon; K57.30 Diverticulosis of large intestine without perforation or abscess without bleeding; K64.8 Other hemorrhoids; G43.909 Migraine, unspecified, not intractable, without status migrainosus; R56.9 Unspecified convulsions; F41.1 Generalized anxiety disorder; Z86.19 Personal history of other infectious and parasitic diseases; Z79.899 Other long term (current) drug therapy; Z88.8 Allergy status to other drugs, medicaments and biological substances; Z90.49 Acquired absence of other specified parts of digestive tract
CPT/HCPCS: 45385; 88305; J2250

== ENCOUNTER 2022-06-14 07:31 | Outpatient (REF) | payer OTHER, SELFPAY ==
[2022-06-14 08:40] LABS: Alanine Aminotransferase 12 U/L (0-31); Albumin Level 3.7 g/dL (3.5-5.0); Alkaline Phosphatase 58 U/L (39-117); Aspartate Amino Transferase 20 U/L (5-31); Bilirubin Direct < 0.2 mg/dL (0.0-0.5); Bilirubin Total 0.4 mg/dL (0.0-1.0); Total Protein 7.5 g/dL (6.5-8.0)
[2022-06-14 08:43] LABS: Valproate 80.6 mcg/mL (50.0-100.0)
== END 2022-06-14 07:32 | disposition home or self-care (01) ==
LOC: HO.LAB 07:31
PROVIDERS: Visit Provider Psychiatry & Neurology Neurology
DX: G40.909 Epilepsy, unspecified, not intractable, without status epilepticus (principal); Z79.899 Other long term (current) drug therapy
CPT/HCPCS: 36415; 80076; 80164

== ENCOUNTER → 2022-08-19 15:27 | Outpatient (BNVA) | payer OTHER, SELFPAY | PROVIDERS: PCP Registered Nurse; Visit Provider Obstetrics & Gynecology | DX: Z13.89 Encounter for screening for other disorder (principal) ==

== ENCOUNTER 2022-09-23 15:34 | Outpatient (REF) | payer OTHER, SELFPAY ==
--- NOTE | ~2022-09-23 | US_ITS ---
EXAMINATION: US PELVIS CLINICAL INFORMATION: Pelvic pain. COMPARISON: Pelvic ultrasounds dated 04/01/2022 and 09/12/2021. CT scan dated 10/07/2021. TECHNIQUE: Ultrasound of the pelvis is performed using both transabdominal and transvaginal transducers along with Doppler. Transvaginal imaging is performed due to inadequate visualization transabdominally. FINDINGS: Uterus: The uterus is anteverted and measures 9.2 x 6.1 x 6.4 cm. There are multiple cervical nabothian cysts. The cervical canal appears somewhat heterogeneous and measures approximately 0.7 cm in thickness. The double wall endometrial thickness measures 0.5 cm. The uterus is smooth in contour. It is diffusely heterogeneous in echotexture and contains multiple leiomyomata which measure 2.7 cm or less in diameter. Adnexa: Both ovaries are visualized. There is normal color flow to the adnexa. There is no evidence of ovarian torsion. No pelvic ascites or fluid collection is appreciated. Right ovary measures 2.3 x 1.8 x 1.6 cm. Left ovary measures 3.0 x 2.4 x 2.1 cm. It contains a 1.9 x 1.9 x 1.7 cm benign cyst for which no further dedicated follow up imaging is indicated. US/US pelvic and transvaginal IMPRESSION: No acute finding. Multiple cervical nabothian cysts. The cervical canal appears somewhat heterogeneous and measures approximately 0.7 cm in thickness. Recommend clinical correlation. Diffusely heterogeneous uterine echotexture. Multiple uterine leiomyomata which measure 2.7 cm or less in diameter.
== END 2022-09-23 15:35 | disposition home or self-care (01) ==
LOC: HO.US 15:34
PROVIDERS: Visit Provider Obstetrics & Gynecology
DX: R10.2 Pelvic and perineal pain (principal)
CPT/HCPCS: 76830; 76856

== ENCOUNTER 2022-10-03 15:50 | Outpatient (REF) | payer OTHER, SELFPAY ==
--- NOTE | ~2022-10-03 | MM_ITS ---
EXAMINATION: MM SCREENING DIGITAL BREAST TOMOSYNTHESIS, BILATERAL CLINICAL INFORMATION: Screening. Asymptomatic. The lifetime risk of breast cancer based on the Tyrer-Cuzick Model is 9%. COMPARISON: Mammography: 10/01/2021, 09/19/2021, 11/01/2018, 08/19/2016 TECHNIQUE: Digital breast tomosynthesis is performed in both the craniocaudal and mediolateral oblique views along with computer-aided detection (CAD). Synthesized 2D images are generated from the tomosynthesis. Additional right CC view is provided. FINDINGS: There are scattered areas of fibroglandular density (ACR BI-RADS breast composition Category b). There are no significant masses, abnormal calcifications, or other abnormalities. Parenchymal pattern is similar to prior studies. There is no developing density or architectural abnormality. The axilla and skin contours are unremarkable. No significant changes. MM/MM tomosynthesis screening BI IMPRESSION: No mammographic evidence of malignancy. ASSESSMENT: BI-RADS 1: Negative RECOMMENDATION: Routine annual mammography screening. This patient's information was entered into a reminder system with a target due date for their next mammogram.
== END 2022-10-03 15:51 | disposition home or self-care (01) ==
LOC: HO.MAMMO 15:50
PROVIDERS: PCP Registered Nurse; Visit Provider Obstetrics & Gynecology
DX: Z12.31 Encounter for screening mammogram for malignant neoplasm of breast (principal)
CPT/HCPCS: 77063; 77067

== ENCOUNTER 2022-10-18 08:50 | Outpatient (REF) | payer OTHER, SELFPAY ==
[2022-10-18 09:05] LABS: MANUAL DIFF FLAG NO
[2022-10-18 09:29] LABS: Basophils Percent Auto 0.7 % (0-2); Eosinophils Absolute Auto 0.3 X10*3/uL (0.0-0.4); Eosinophils Percent Auto 4.7 % (0-4); Hematocrit 42.6 % (37.0-47.0); Hemoglobin 13.5 g/dl (12.0-16.0); Imm Gran Abs Auto 0.02 X10*3/uL (0.00-0.03); Imm Gran Pct Auto 0.4 % (0.0-0.4); Lymphocytes Absolute Auto 1.7 X10*3/uL (1.2-4.9); Lymphocytes Percent Auto 31.1 % (20-40); Mean Corpuscular HGB Conc 31.7 g/dl (31.0-35.0); Mean Corpuscular Hemoglobin 30.9 pg (27.0-33.0); Mean Corpuscular Volume 97.5 fL (80.0-98.0); Mean Platelet Volume 9.4 fL (9.4-12.3); Monocytes Absolute Auto 0.5 X10*3/uL (0.1-1.2); Monocytes Percent Auto 9.5 % (2-11); Neutrophils Percent Auto 53.6 % (45-73); Platelet Count 197 X10*3/uL (160-400); Red Blood Count 4.37 X10*6/uL (4.20-5.50); Red Cell Distribution Width 14.1 % (11.0-16.0); White Blood Count 5.6 X10*3/uL (4.8-10.8)
[2022-10-18 10:04] LABS: Valproate 81.6 mcg/mL (50.0-100.0)
[2022-10-18 10:07] LABS: Cholesterol 216 mg/dL; HDL Cholesterol 56 mg/dL; LDL Cholesterol Calculated 134 mg/dl; Triglycerides 134 mg/dL
== END 2022-10-18 08:51 | disposition home or self-care (01) ==
LOC: HO.LAB 08:50
PROVIDERS: Visit Provider Registered Nurse
DX: E78.2 Mixed hyperlipidemia (principal); N93.9 Abnormal uterine and vaginal bleeding, unspecified; R56.9 Unspecified convulsions
CPT/HCPCS: 36415; 80061; 80164; 85025

== ENCOUNTER → 2022-12-01 15:47 | Outpatient (BNVA) | payer MEDICAID, SELFPAY | PROVIDERS: PCP Registered Nurse; Visit Provider Obstetrics & Gynecology | DX: D25.9 Leiomyoma of uterus, unspecified (principal) | CPT/HCPCS: 99212 ==

== ENCOUNTER 2023-02-07 07:16 | Outpatient (REF) | payer MEDICAID, SELFPAY ==
[2023-02-07 07:32] LABS: MANUAL DIFF FLAG NO
[2023-02-07 07:42] LABS: Basophils Percent Auto 0.4 % (0-2); Eosinophils Absolute Auto 0.2 X10*3/uL (0.0-0.4); Eosinophils Percent Auto 4.2 % (0-4); Hematocrit 40.1 % (37.0-47.0); Hemoglobin 12.7 g/dl (12.0-16.0); Imm Gran Abs Auto 0.01 X10*3/uL (0.00-0.03); Imm Gran Pct Auto 0.2 % (0.0-0.4); Lymphocytes Absolute Auto 1.6 X10*3/uL (1.2-4.9); Lymphocytes Percent Auto 30.9 % (20-40); Mean Corpuscular HGB Conc 31.7 g/dl (31.0-35.0); Mean Corpuscular Hemoglobin 30.8 pg (27.0-33.0); Mean Corpuscular Volume 97.1 fL (80.0-98.0); Mean Platelet Volume 9.5 fL (9.4-12.3); Monocytes Absolute Auto 0.5 X10*3/uL (0.1-1.2); Neutrophils Absolute Auto 2.7 x10*3/uL (2.0-8.3); Neutrophils Percent Auto 54.3 % (45-73); Platelet Count 185 X10*3/uL (160-400); Red Blood Count 4.13 X10*6/uL (4.20-5.50); Red Cell Distribution Width 14.2 % (11.0-16.0)
[2023-02-07 07:50] LABS: Estimated Average Glucose 108 mg/dL; Hemoglobin A1c % 5.4 %
[2023-02-07 08:10] LABS: Alanine Aminotransferase 14 U/L (0-31); Albumin Level 3.5 g/dL (3.5-5.0); Alkaline Phosphatase 59 U/L (39-117); Anion Gap 11 (12-20); Aspartate Amino Transferase 20 U/L (5-31); Bilirubin Total 0.3 mg/dL (0.0-1.0); Blood Urea Nitrogen 10 mg/dL (9-16); Calcium 9.7 mg/dL (8.4-10.2); Carbon Dioxide 28 mmol/L (22-29); Chloride 106 mmol/L (96-108); Cholesterol 225 mg/dL; Estimated Glomerular Filt Rate > 60; Glucose Random 96 mg/dL (60-115); HDL Cholesterol 48 mg/dL; LDL Cholesterol Calculated 141 mg/dl; Potassium 4.4 mmol/L (3.3-5.1); Sodium 141 mmol/L (135-145); Total Protein 7.2 g/dL (6.5-8.0); Triglycerides 184 mg/dL
[2023-02-09 05:07] LABS: HBc Num1 0.32 S/CO (0.00-0.79); HBsAGNum1 0.27 S/CO (0.00-0.99); Hepatitis A Antibody IgM 0.37 Index (0-0.79); Hepatitis B Core Antibody Nonreactive (Nonreactive); Hepatitis B Surface Antigen Negative (Negative); ~Hepatitis A Antibody IgM Nonreactive (Nonreactive); ~Hepatitis C Antibody Nonreactive (Nonreactive)
[2023-02-09 05:50] LABS: HBS Num1 0.83 mIU/mL (0-7.99); ~Hepatitis B Surface Antibody NONREACTIVE (Nonreactive)
== END 2023-02-07 07:17 | disposition home or self-care (01) ==
LOC: HO.LAB 07:16
PROVIDERS: PCP Registered Nurse; Visit Provider Registered Nurse
DX: Z00.00 Encounter for general adult medical examination without abnormal findings (principal)
CPT/HCPCS: 36415; 80053; 80061; 83036; 85025; 86704; 86706; 86709; 86803; 87340

== ENCOUNTER 2023-03-02 15:21 | Outpatient (AMB) | payer MEDICAID, SELFPAY ==
--- NOTE | 2023-03-02 15:22 | A.OFFVIS_ITS ---
Intake Vital Signs 03/02/23 15:24 Height 5 ft 2 in Weight 158 lb BMI 28.9 BP 116/69 Blood Pressure Location Lt brachial Position Sitting Pulse 77 Pulse Source Pulse Oximeter Intake Visit Reasons: Fibromyositis Soaping Department Supervisor Required: Yes Soaping Department Supervisor Name: Araceli [id number] Allergies aspirin [ASPIRIN] Allergy (Unknown, Verified 12/01/22 15:54) SWELLING, facial swelling HPI Fibromyositis HPI Details 52-year-old female presenting today for a new patient evaluation of bilateral hand pain, low back and bilateral heel pain. She reports pain in her back that radiates to her hip region. She has not tried physical therapy for her lower back due to inability to schedule with her work. She is employed at [employer], which requires her to lift approximately 20?30 lbs. of packages on a daily basis. She states that she has had cortisone injections in the past to her feet. Her pain is debilitating and interferes with her daily activities. She is interested interventional treatment due to inability to participate in formal physical therapy and lack of relief from oral medications. 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 Alert and oriented. Mood and affect appropriate. Follows and participates in conversation appropriately. Respiratory effort is unlabored. Able to transition from sit to stand unassisted. Ambulates with bilaterally normal heel strike and toe off. Lumbar Spine: Thigh thrust reproduces low back pain. SHI reproduces pain in the right lower back. Gaenslen is positive. Significant tenderness to palpation overlying the left L5 TP articulation. Significant tenderness overlying bilateral sacroiliac joints. Lumbar Extension reproduces the pain. Forward flexion does not reproduce the pain. Results Reviewed Results Reviewed: Per referral note, patient has transitional lumbosacral anatomy on plain films of the lumbar spine. Castellvi type 2a. 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 I discussed trialing corticosteroid injections to the L5 TP/sacral articulation as well as intra-articular sacroiliac joint, especially on the right side. She also has significant right L4-5 and L5-S1 facet arthritis that might respond well to nonsteroidal intervention. She will discuss this with her family and get back to us when she is ready to proceed. In the meanwhile I ordered a CT scan of the lumbar spine for further evaluation of her lumbosacral transition as well as the sacroiliac joints for procedure planning in the future. Scribed for Dr. Bhatti by Ronaldo Zazueta, biomedical engineering technician, on 03/02/2023. I, Dr. Bhatti, have personally reviewed and agree with the information entered by the scribe. Orders: Orders CT lumbar spine wo IV con Today M47.816 - Spondylosis without myelopathy or radiculopathy, lumbar region Coding Level of Care Code New Pt Level 4 (73077) Diagnoses Lumbar spondylosis M47.816
[2023-03-02 15:24] VITALS: BP 116/69; PULSE 77; BMI 28.9
== END 2023-03-02 15:48 | disposition home or self-care (01) ==
PROVIDERS: PCP Registered Nurse; Visit Provider Internal Medicine
DX: M47.816 Spondylosis without myelopathy or radiculopathy, lumbar region (principal)
CPT/HCPCS: 99204

== ENCOUNTER → 2023-03-02 15:21 | Outpatient (BNVA) | payer MEDICAID, SELFPAY | PROVIDERS: PCP Registered Nurse; Visit Provider Internal Medicine | DX: M47.816 Spondylosis without myelopathy or radiculopathy, lumbar region (principal) | CPT/HCPCS: 99202 ==

== ENCOUNTER 2023-04-08 16:00 | Outpatient (REF) | payer MEDICAID, SELFPAY ==
--- NOTE | ~2023-04-08 | CT_ITS ---
EXAMINATION: CT LUMBAR SPINE WITHOUT CONTRAST CLINICAL INFORMATION: Spondylosis without myelopathy. COMPARISON: CT scan of the abdomen and pelvis 10/07/2021. Plain films of the thoracic and lumbar spine 07/24/2014. TECHNIQUE: A noncontrast axial CT scan of the lumbar spine was obtained. Coronal and sagittal reformatted images were generated at the acquisition workstation. This CT examination was performed using dose optimization techniques as appropriate, variously including the following: *Automated exposure control *Adjustment of mA and/or kV according to patient size (this includes techniques or standardized protocols for targeted exams where dose is matched to indication/reason for exam; i.e. extremities or head) *Use of iterative reconstruction technique DLP; 523 mGy-cm FINDINGS: VERTEBRAL BODIES AND PARASPINAL STRUCTURES: There are transitional vertebrae at the thoracolumbar and lumbosacral regions. There are hypoplastic ribs off the body of T12, and there is partial sacralization of L5. This should be correlated with plain films before any intervention is undertaken. There is a slight grade 1 anterolisthesis of L5 on S1. Intervertebral disc heights are maintained. The vertebral bodies have normal height and contour, and no fractures are demonstrated. 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 Overall, bone mineralization appears normal. There are cholecystectomy clips in the gallbladder fossa. The visualized retroperitoneal and pelvic structures are unremarkable. There are sclerotic changes of the right greater than left sacroiliac joints. SPINAL LEVELS: T12-L1: The facet joints appear normal bilaterally. Disc contour is normal. There is no central stenosis or foraminal narrowing. L1-L2: The facet joints appear normal bilaterally. Disc contour is normal. There is no central stenosis or foraminal narrowing. L2-L3: The facet joints appear normal bilaterally. Disc contour is normal. There is no central stenosis or foraminal narrowing. L3-L4: There are moderate bilateral facet arthropathic changes. There is a posterior disc protrusion without mass effect on the thecal sac and there is no central stenosis. The neural foramina are patent bilaterally. L4-L5: There are severe bilateral facet arthropathic changes. There is a posterior disc protrusion without mass effect on the thecal sac and there is no central stenosis. There is mild right foraminal narrowing. L5-S1: There is moderate bilateral facet arthropathy. There is partial sacralization of L5 on the left with pseudoarticulation between L5 and S1 with sclerosis and vacuum changes. There is mild unroofing of the disc as a result of the anterolisthesis. The neural foramina are patent bilaterally. There is no central stenosis. CT/CT lumbar spine wo IV con IMPRESSION: 1. There is a grade 1 anterolisthesis of L5 on S1. There is partial sacralization of L5 on the left with pseudoarticulation between L5 and S1. This should be correlated with plain films before any intervention is undertaken. 2. At L4-L5 there are severe facet arthropathic changes. There is a posterior disc protrusion without mass effect on the thecal sac and there is no central stenosis. There is mild right foraminal narrowing. 3. At L3-L4 there are moderate facet arthropathic changes. There is a posterior disc protrusion without mass effect on the thecal sac and there is no central stenosis. The neural foramina are patent. 4. There are no acute fractures or subluxations. There are sequelae of prior cholecystectomy.
== END 2023-04-08 16:01 | disposition home or self-care (01) ==
LOC: HO.CT 16:00
PROVIDERS: PCP Registered Nurse; Visit Provider Internal Medicine
DX: M47.816 Spondylosis without myelopathy or radiculopathy, lumbar region (principal)
CPT/HCPCS: 72131

== ENCOUNTER 2023-04-22 15:44 | Outpatient (REF) | payer MEDICAID, SELFPAY ==
--- NOTE | ~2023-04-22 | XR_ITS ---
EXAMINATION: XR KNEE, LEFT CLINICAL INFORMATION: Chronic pain. COMPARISON: Radiographs dated 06/13/2014. TECHNIQUE: AP, lateral, tunnel, and sunrise views of the left knee. FINDINGS: Bony alignment and mineralization are normal. The lateral, medial and patellofemoral joint space compartments are well-maintained. There is very mild peripheral osteophyte formation of the medial and patellofemoral joint space compartments. No fracture, dislocation or joint effusion is seen. There is no foreign body. XR/XR knee LT 4V IMPRESSION: 1. No fracture, dislocation or left knee joint effusion is seen. 2. There is very mild osteoarthritic change of the left medial and patellofemoral joint space compartments.
== END 2023-04-22 15:45 | disposition home or self-care (01) ==
LOC: HO.XRAY 15:44
PROVIDERS: PCP Registered Nurse; Visit Provider Registered Nurse
DX: M25.562 Pain in left knee (principal); G89.29 Other chronic pain
CPT/HCPCS: 73564

== ENCOUNTER 2023-05-21 11:33 | Outpatient (REF) | payer MEDICAID, SELFPAY ==
--- NOTE | ~2023-05-21 | XR_ITS ---
EXAMINATION: XR SACRUM AND COCCYX CLINICAL INFORMATION: Low back and coccygeal pain status post fall 2 weeks ago COMPARISON: None available. TECHNIQUE: 3 views of the sacrum and coccyx FINDINGS: No acute visible fracture or dislocation. Joint spaces and alignment are maintained. Soft tissues are unremarkable. XR/XR sacrum coccyx min 2V IMPRESSION: No acute visible fracture or dislocation.
== END 2023-05-21 11:34 | disposition home or self-care (01) ==
LOC: HO.HHCX 11:33
PROVIDERS: Visit Provider Family Medicine
DX: M53.3 Sacrococcygeal disorders, not elsewhere classified (principal)
CPT/HCPCS: 72220

== ENCOUNTER 2023-06-08 15:07 | Outpatient (AMB) | payer MEDICAID, SELFPAY ==
--- NOTE | 2023-06-08 15:19 | A.OFFVIS_ITS ---
Intake Vital Signs 06/08/23 15:20 Height 5 ft 2 in Weight 166 lb BMI 30.4 Blood Pressure Location Lt brachial Position Sitting Respiration 12 Pulse Source Pulse Oximeter Intake Visit Reasons: Fibromyositis follow up/lvm Allergies aspirin [ASPIRIN] Allergy (Unknown, Verified 06/08/23 15:21) SWELLING, facial swelling Medication List - Last Reconciled 06/08/23 by Enedelia Quispe LPN divalproex (Depakote) 750 mg (1.5 x 500 mg) PO BID 30 days duloxetine 1 cap PO DAILY omeprazole 20 mg PO DAILY HPI Fibromyositis follow up/lvm HPI Details 52-year-old female who presents today to the office for a follow-up for low back pain. The pain is worse on left side than right side. The patient has a history of arthritis. She reports neck pain. She reports left knee pain. 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 She has difficulty walking and standing. She has not performed any physical therapy in the past for knee pain. 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 Alert and oriented. Mood and affect appropriate. Follows and participates in conversation appropriately. Respiratory effort is unlabored. Able to transition from sit to stand unassisted. Ambulates with bilaterally normal heel strike and toe off. Lumbar extension is very limited and reproduces pain Results Reviewed Results Reviewed: 04/08/23CT LUMBAR SPINE WITHOUT CONTRAST FINDINGS: VERTEBRAL BODIES AND PARASPINAL STRUCTURES: There are transitional vertebrae at the thoracolumbar and lumbosacral regions. There are hypoplastic ribs off the body of T12, and there is partial sacralization of L5. This should be correlated with plain films before any intervention is undertaken. There is a slight grade 1 anterolisthesis of L5 on S1. Intervertebral disc heights are maintained. The vertebral bodies have normal height and contour, and no fractures are demonstrated. 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 Overall, bone mineralization appears normal. There are cholecystectomy clips in the gallbladder fossa. The visualized retroperitoneal and pelvic structures are unremarkable. There are sclerotic changes of the right greater than left sacroiliac joints. SPINAL LEVELS: T12-L1: The facet joints appear normal bilaterally. Disc contour is normal. There is no central stenosis or foraminal narrowing. L1-L2: The facet joints appear normal bilaterally. Disc contour is normal. There is no central stenosis or foraminal narrowing. L2-L3: The facet joints appear normal bilaterally. Disc contour is normal. There is no central stenosis or foraminal narrowing. L3-L4: There are moderate bilateral facet arthropathic changes. There is a posterior disc protrusion without mass effect on the thecal sac and there is no central stenosis. The neural foramina are patent bilaterally. L4-L5: There are severe bilateral facet arthropathic changes. There is a posterior disc protrusion without mass effect on the thecal sac and there is no central stenosis. There is mild right foraminal narrowing. L5-S1: There is moderate bilateral facet arthropathy. There is partial sacralization of L5 on the left with pseudoarticulation between L5 and S1 with sclerosis and vacuum changes. There is mild unroofing of the disc as a result of the anterolisthesis. The neural foramina are patent bilaterally. There is no central stenosis. IMPRESSION: 1. There is a grade 1 anterolisthesis of L5 on S1. There is partial sacralization of L5 on the left with pseudoarticulation between L5 and S1. This should be correlated with plain films before any intervention is undertaken. 2. At L4-L5 there are severe facet arthropathic changes. There is a posterior disc protrusion without mass effect on the thecal sac and there is no central stenosis. There is mild right foraminal narrowing. 3. At L3-L4 there are moderate facet arthropathic changes. There is a posterior disc protrusion without mass effect on the thecal sac and there is no central stenosis. The neural foramina are patent. 4. There are no acute fractures or subluxations. There are sequelae of prior cholecystectomy. 04/22/23: XR KNEE, LEFT FINDINGS: Bony alignment and mineralization are normal. The lateral, medial and patellofemoral joint space compartments are well-maintained. There is very mild peripheral osteophyte formation of the medial and patellofemoral joint space compartments. No fracture, dislocation or joint effusion is seen. There is no foreign body. IMPRESSION: 1. No fracture, dislocation or left knee joint effusion is seen. 2. There is very mild osteoarthritic change of the left medial and patellofemoral joint space compartments. 05/21/23: XR SACRUM AND COCCYX FINDINGS: No acute visible fracture or dislocation. Joint spaces and alignment are maintained. Soft tissues are unremarkable. IMPRESSION: No acute visible fracture or dislocation. Assessment & Plan Assessment & Plan (1) Bertolotti's syndrome: Code(s): Q76.49 - Other congenital malformations of spine, not associated with scoliosis (2) Lumbar spondylosis: Code(s): M47.816 - Spondylosis without myelopathy or radiculopathy, lumbar region Plan Discussed cortisone injection vs. Peripheral nerve stimulator as a possible treatment option. Will schedule her for a bilateral L4-5 facet injection and left L5/TP steroid injection. Discussed the risks and benefits of the procedure with the patient in detail. All questions were answered. The patient is on board with the plan. For her knee pain secondary to patellofemoral syndrome, I advised the patient to perform physical therapy exercises at home and provided her with exercises to accomplish this. Justification for interventional therapy: ? Patient with average pain > 6/10 ? Patient has exhausted conservative therapy ? Patient unable to tolerate physical therapy due to pain Scribed for Dr. Bhatti by Ronaldo Zazueta, medical staff manager, on 06/08/2023. I, Dr. Bhatti, have personally reviewed and agree with the information entered by the scribe. Coding Level of Care Code Est Pt Level 4 (95503) Diagnoses Bertolotti's syndrome Q76.49 Lumbar spondylosis M47.816
[2023-06-08 15:20] VITALS: RESP 12; BMI 30.4
== END 2023-06-08 15:49 | disposition home or self-care (01) ==
PROVIDERS: PCP Registered Nurse; Visit Provider Internal Medicine
DX: Q76.49 Other congenital malformations of spine, not associated with scoliosis (principal); M47.816 Spondylosis without myelopathy or radiculopathy, lumbar region
CPT/HCPCS: 99214

== ENCOUNTER → 2023-06-08 15:07 | Outpatient (BNVA) | payer MEDICAID, SELFPAY | PROVIDERS: PCP Registered Nurse; Visit Provider Internal Medicine | DX: Q76.49 Other congenital malformations of spine, not associated with scoliosis (principal); M47.816 Spondylosis without myelopathy or radiculopathy, lumbar region; M79.7 Fibromyalgia | CPT/HCPCS: 99212 ==

== ENCOUNTER 2023-07-09 12:31 | Outpatient (REF) | payer MEDICAID, SELFPAY ==
--- NOTE | ~2023-07-09 | XR_ITS ---
EXAMINATION: XR KNEE, RIGHT CLINICAL INFORMATION: Right knee pain COMPARISON: None available. TECHNIQUE: AP and lateral views of the right knee. FINDINGS: Large joint effusion. No acute fracture or malalignment. Mild tricompartmental osteoarthritis. XR/XR knee RT 2V IMPRESSION: Large joint effusion. No acute fracture or malalignment. Mild tricompartmental osteoarthritis.
== END 2023-07-09 12:32 | disposition home or self-care (01) ==
LOC: HO.HHCX 12:31
PROVIDERS: Visit Provider Student in an Organized Health Care Education/Training Program
DX: M25.561 Pain in right knee (principal)
CPT/HCPCS: 73560

== ENCOUNTER 2023-08-05 18:09 | Outpatient (REF) | payer MEDICAID, SELFPAY ==
--- NOTE | ~2023-08-05 | MR_ITS ---
EXAMINATION: MR KNEE WITHOUT CONTRAST, RIGHT CLINICAL INFORMATION: Right knee pain and swelling. Joint effusion. Arthritis. COMPARISON: Right knee radiographs dated 07/09/2023. TECHNIQUE: MRI of the knee without contrast was performed using routine sequences on a high-field scanner. FINDINGS: MENISCI: Medial Meniscus: Inner margin and femoral articular surface tearing of the posterior body and posterior horn with a posteromedially displaced meniscal flap measuring up to 1.1 cm in craniocaudal dimension adjacent to the meniscal body as well as 0.8 cm in AP dimension adjacent to the posterior horn. Mild adjacent soft tissue edema. Lateral Meniscus: Intact. LIGAMENTS: Cruciate: Intact. Collateral: Edema adjacent to the medial collateral ligament which could represent a grade 1 sprain or be related to the medial meniscal tear. Intact fibular collateral ligament. EXTENSOR MECHANISM: Intact. ARTICULAR CARTILAGE/BONE: Patellofemoral Compartment: Medial patellar facet articular cartilage thinning and signal heterogeneity with near full-thickness fissuring. Central and medial trochlea signal heterogeneity and surface regularly. Small marginal osteophytes. Medial Compartment: Diffuse articular cartilage thinning and signal heterogeneity with small marginal osteophytes. At the medial aspect of the medial tibial plateau, there is minimal cortical depression measuring up to 0.5 cm in ML dimension with underlying marrow edema as well as adjacent periosteal and soft tissue edema. Findings are consistent with an acute subchondral fracture. Lateral Compartment: Mild articular cartilage signal heterogeneity with small marginal osteophytes. JOINT FLUID AND BURSAE: [id number] joint effusion. MUSCLES/TENDONS: Significant attenuation and irregularity of the distal semimembranosus tendon insertion measuring up to 2.9 cm in craniocaudal dimension, consistent with tendinosis and irregular longitudinal partial tearing. MR/MR knee RT wo con IMPRESSION: 1. Inner margin and femoral articular surface tearing of the medial meniscus posterior body and posterior horn with a posterior medially displaced meniscal flap. 2. Minimally depressed subchondral fracture at the medial aspect of the medial tibial plateau with underlying marrow and soft tissue edema. 3. Edema adjacent to the medial collateral ligament which could represent a grade 1 sprain or be related to the medial meniscal tear. 4. [id number]-[id number] medial as well as mild patellofemoral and lateral compartment osteoarthritis. [id number] joint effusion. 5. Tendinosis and irregular longitudinal partial tearing of the distal semimembranosus tendon.
== END 2023-08-05 18:10 | disposition home or self-care (01) ==
LOC: HO.MRI 18:09
PROVIDERS: Visit Provider Family Medicine
DX: M25.561 Pain in right knee (principal); M25.461 Effusion, right knee
CPT/HCPCS: 73721

== ENCOUNTER 2023-08-25 14:41 | Outpatient (AMB) | payer MEDICAID, SELFPAY ==
--- NOTE | 2023-08-25 14:47 | A.OFFVIS_ITS ---
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 No complaints, no pelvic pressure or pain or abnormal uterine bleeding. Last pelvic ultrasound in 10/16 showed multiple myomas Last Pap/HPV was negative in 08/17 Last Mammogram was BI-RADS 1 in 10/16 Last Colonoscopy was in 06/17 COUNT INCLUDES [facility] Medical History Migraine Anxiety disorder Fibromyalgia Seizure Surgical History History of cholecystectomy History of tubal ligation Family History (Updated 08/25/23 @ 14:58 by Indigo Palmer CMA) Maternal Grandmother Diabetes Father HTN (hypertension) Mother HTN (hypertension) Social History (Updated 08/25/23 @ 14:58 by Indigo Palmer CMA) Household Members: Spouse Household Members Other:: son Housing: House Alcohol intake: current Alcohol intake frequency: holidays/special occasions only Patient Tobacco Use Status: Never used Tobacco Current occupational status: employed 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 Sexually active: Yes Sexual orientation: Straight/Heterosexual Gender identity: Female Female Reproductive History Menstrual Age of Menarche: 10 Menopause type: natural Total pregnancies: 3 Full term: 3 Number of Living Children: 3 Date of last pap smear: 08/16/21 Date of Mammogram: 10/03/22 Review of Systems Const All systems reviewed & are unremarkable except as noted in HPI and below Card Reports as per HPI Resp Reports as per HPI GI Reports as per HPI and Reports no additional complaints Reports as per HPI Physical Exam Vital Signs: Last Vital Signs BP 116/70 08/25/23 14:52 BMI result Body Mass Index 29.3 Const General: cooperative, healthy appearing and comfortable Chest Chest palpation & inspection: normal inspection of the chest and normal palpation of entire chest wall Breast/axilla inspection: normal inspection of the breasts and normal inspection of the axillae Breast/axilla palpation: normal palpation of the breasts, normal palpation of the axillae and no axillary lymphadenopathy Resp Effort & Inspection: normal respiratory effort Auscultation: clear to auscultation bilaterally Percussion: percussion normal Cardio Palpation: normal PMI Rate: regular rate Rhythm: regular rhythm Heart sounds: no murmurs and no rubs Peripheral pulses: Peripheral pulses 2+ throughout GI Inspection: Yes normal to inspection Palpation (GI): Soft to palpation, nontender, no guarding, not rigid and No hepatosplenomegaly present Percussion: Yes normal to percussion Auscultation: normal bowel sounds Rectal Exam - Female: deferred General: Yes bladder normal to palpation External Female Exam: No lesion Speculum Exam - Vagina: normal appearance of the vagina, normal palpation, normal vaginal discharge and not erythematous Speculum Exam - Cervix: normal appearance of the cervix and normal palpation Bimanual exam- vagina & uterus: normal bimanual exam, normal palpation, uterine size normal, bladder normal to palpation, consistency normal and normal palpa tion Bimanual Exam- Adnexa, other: normal adnexae, no masses and no tenderness Assessment & Plan Assessment & Plan (1) Well woman exam: Code(s): Z01.419 - Encounter for gynecological examination (general) (routine) without abnormal findings Plan: Co testing not indicated this year. Counseled the patient about the recommended dietary allowance of 1200 mg of Calcium & 600 IU of vitamin D. Instructions given the patient to schedule her next screening Mammogram in 10/17. The patient was instructed to perform monthly self-breast exams and schedule annual exam in a year. All questions answered and the patient verbalized understanding. (2) Uterine myoma: Code(s): D25.9 - Leiomyoma of uterus, unspecified Plan: Will repeat ultrasound to compare the size of myoma, instructions given the patient to schedule an ultrasound follow-up appointment in 2 weeks Orders: Orders US pelvic and transvaginal Today D25.9 - Leiomyoma of uterus, unspecified Coding Level of Care Code Est Pt Prev Care 40-64y(00831) Diagnoses Well woman exam Z01.419 Uterine myoma D25.9
[2023-08-25 14:52] VITALS: BP 116/70; BMI 29.3
== END 2023-08-25 15:15 | disposition home or self-care (01) ==
LOC: HO.HWS 14:41
PROVIDERS: PCP Student in an Organized Health Care Education/Training Program; Visit Provider Obstetrics & Gynecology
DX: Z01.419 Encounter for gynecological examination (general) (routine) without abnormal findings (principal); D25.9 Leiomyoma of uterus, unspecified
CPT/HCPCS: 99396

== ENCOUNTER → 2023-08-25 14:41 | Outpatient (BNVA) | payer OTHER, SELFPAY | PROVIDERS: PCP Student in an Organized Health Care Education/Training Program; Visit Provider Obstetrics & Gynecology | DX: Z01.419 Encounter for gynecological examination (general) (routine) without abnormal findings (principal); D25.9 Leiomyoma of uterus, unspecified | CPT/HCPCS: 99396 ==

== ENCOUNTER 2023-08-26 12:22 | Outpatient (AMB) | payer MEDICAID, SELFPAY ==
[2023-08-26 12:37] VITALS: BMI 29.3
--- NOTE | 2023-08-26 12:37 | A.OFFVIS_ITS ---
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 The patient states that she injured her knee approximately 2 months ago when she twisted her knee while walking down stairs. Since that time her symptoms have not improved. She states that her right knee will give out several times per day. She has taken Tylenol and anti- inflammatory medicines which gave her minimal relief. She has also done physical therapy exercises which aggravated her pain. Allergies aspirin [ASPIRIN] Allergy (Unknown, Verified 08/26/23 12:42) SWELLING, facial swelling Medication List - Last Reconciled 08/26/23 by Keyon Bowles MD divalproex (Depakote) 750 mg (1.5 x 500 mg) PO BID 30 days duloxetine 1 cap PO DAILY omeprazole 20 mg PO DAILY PFSH Medical History Migraine Anxiety disorder Fibromyalgia Seizure Surgical History History of cholecystectomy History of tubal ligation Family History (Updated 08/25/23 @ 14:58 by Indigo Palmer CMA) Maternal Grandmother Diabetes Father HTN (hypertension) Mother HTN (hypertension) Social History (Updated 08/25/23 @ 14:58 by Indigo Palmer CMA) Household Members: Spouse Household Members Other:: son Housing: House Alcohol intake: current Alcohol intake frequency: holidays/special occasions only Patient Tobacco Use Status: Never used Tobacco Current occupational status: employed 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 Sexual orientation: Straight/Heterosexual Gender identity: Female Female Reproductive History Menstrual Age of Menarche: 10 Physical Exam Vital Signs: BMI result Body Mass Index 29.3 Const Other: Well-nourished well-developed very friendly female awake alert and oriented x3 in no acute distress Extrem Other: Bilateral lower extremity examination shows good capillary refill, no skin lesions noted, normal sensation light touch Right knee examination shows a minimal effusion, minimal range of motion, tenderness along her medial and lateral joint lines, positive Jose's test, no instability Results Reviewed Results Reviewed: MRI of the patient's right knee shows minimal diffuse degenerative changes as well as a tear of the medial meniscus and possible lateral meniscus tearing, no acute bony abnormalities Assessment & Plan Assessment & Plan (1) Right knee pain: Code(s): M25.561 - Pain in right knee Plan Ms. Og presents with progressively worsening right knee pain and mechanical symptoms due to a tear of her medial meniscus and possible lateral meniscus tearing. I had a lengthy discussion with the patient and her regarding the treatment options. The risks and benefits of right knee arthroscopic surgery were discussed at length with the patient. The patient wishes to think things over. She will contact my office to pick a surgery date if she chooses to do so. Otherwise she will follow up on an as-needed basis. Feel free to call me at any time should questions regarding her orthopedic management arise. Thank you very much for asking me to see this very friendly patient. I spent 22 minutes in reviewing the patient's records and imaging studies, seeing the patient and documenting in the medical record. Coding Level of Care Code New Pt Level 2 (85165) Diagnoses Right knee pain M25.561
== END 2023-08-26 13:04 | disposition home or self-care (01) ==
PROVIDERS: PCP Registered Nurse; Referring Provider Registered Nurse; Visit Provider Orthopaedic Surgery
DX: M25.561 Pain in right knee (principal)
CPT/HCPCS: 99202

== ENCOUNTER → 2023-08-26 12:22 | Outpatient (BNVA) | payer MEDICAID, SELFPAY | PROVIDERS: PCP Registered Nurse; Visit Provider Orthopaedic Surgery | DX: S83.241A Other tear of medial meniscus, current injury, right knee, initial encounter (principal) | CPT/HCPCS: 99202 ==

== ENCOUNTER 2023-09-28 16:09 | Outpatient (REF) | payer MEDICAID, SELFPAY ==
--- NOTE | ~2023-09-28 | US_ITS ---
EXAMINATION: US PELVIS CLINICAL INFORMATION: Leiomyoma of uterus unspecified, postmenopausal, back pain. COMPARISON: 09/23/2022. TECHNIQUE: Ultrasound of the pelvis is performed using both transabdominal and transvaginal transducers along with Doppler. Transvaginal imaging is performed due to inadequate visualization transabdominally. FINDINGS: The uterus is heterogeneous and measures 9.9 x 4.4 x 5.9 cm, volume 134.57 mL. Multiple uterine fibroids, largest as follows: 1.4 x 1.1 x 1.0 cm, previously 1.7 x 1.6 x 2.0 cm 1.9 x 1.2 x 1.7 cm, previously 1.3 x 1.0 x 1.0 cm. 1.3 x 1.0 x 1.0 cm, previously 2.2 x 2.1 x 2.2 cm. 2.5 x 2.4 x 3.0 cm, previously 2.7 x 2.1 x 1.5 cm. Comparison is somewhat limited due to multiple fibroids. Limited visualization of the endometrium due to uterine fibroids. Imaged segment of endometrium with thickness of 2 mm. No significant free fluid. Multiple nabothian cysts. As previously noted, the cervical canal appears somewhat heterogeneous. Correlation with clinical exam recommended. Right ovary measures 1.8 x 1.0 x 0.9 cm, volume 0.9 mL. Left ovary measures 1.1 x 0.9 x 0.7 cm, volume 0.4 mL. Bilateral ovaries are grossly unremarkable, although visualization is somewhat limited due to bowel gas. US/US pelvic and transvaginal IMPRESSION: 1. Multiple uterine fibroids, largest 3.0 cm. 2. Limited visualization of the endometrium due to uterine fibroids. Imaged segment of endometrium with thickness of 2 mm. 3. As previously noted, the cervical canal appears somewhat heterogeneous. Correlation with clinical exam recommended. 4. Bilateral ovaries are grossly unremarkable, although visualization is somewhat limited due to bowel gas.
== END 2023-09-28 16:10 | disposition home or self-care (01) ==
LOC: HO.US 16:09
PROVIDERS: PCP Registered Nurse; Visit Provider Obstetrics & Gynecology
DX: D25.9 Leiomyoma of uterus, unspecified (principal)
CPT/HCPCS: 76830; 76856

== ENCOUNTER 2023-10-05 15:25 | Outpatient (AMB) | payer MEDICAID, SELFPAY ==
--- NOTE | 2023-10-05 15:36 | A.OFFVIS_ITS ---
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 The patient is doing well with no complaints no pelvic pressure, pain or abnormal uterine bleeding. Pelvic ultrasound showed the following: The uterus is heterogeneous and measures 9.9 x 4.4 x 5.9 cm, volume 134.57 mL. Multiple uterine fibroids, la rgest as follows: 1.4 x 1.1 x 1.0 cm, previously 1.7 x 1.6 x 2.0 cm 1.9 x 1.2 x 1.7 cm, previously 1.3 x 1.0 x 1.0 cm. 1.3 x 1.0 x 1.0 cm, previously 2.2 x 2.1 x 2.2 cm. 2.5 x 2.4 x 3.0 cm, previously 2.7 x 2.1 x 1.5 cm. Comparison is somewhat limited due to multiple fibroids. Limited visualization of the endometrium due to uterine fibroids. Imaged segment of endometrium with thickness of 2 mm. No significant free fluid. Multiple nabothian cysts. As previously noted, the cervical canal appears somewhat heterogeneous. Correlation with clinical exam recommended. Right ovary measures 1.8 x 1.0 x 0.9 cm, volume 0.9 mL. Left ovary measures 1.1 x 0.9 x 0.7 cm, volume 0.4 mL. Bilateral ovaries are grossly unremarkable, although visualization is somewhat limited due to bowel gas. 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 Sexual orientation: Straight/Heterosexual Gender identity: Female Female Reproductive History Menstrual Age of Menarche: 10 Review of Systems Const All systems reviewed & are unremarkable except as noted in HPI and below Reports as per HPI and Reports no additional complaints GI Reports no additional complaints Reports no additional complaints Physical Exam Vital Signs: Last Vital Signs BP 110/74 10/05/23 15:38 BMI result Body Mass Index 29.0 Assessment & Plan Assessment & Plan (1) Uterine myoma: Code(s): D25.9 - Leiomyoma of uterus, unspecified Plan: Discussed with the patient the findings on pelvic ultrasound & the risk of myosarcoma; discussed with the patient the options of treatment including expectant management versus hysterectomy; the pros and cons, risks benefits of each approach were discussed with the patient including the fact that in cases of myosarcoma, surgical treatment can lead to early diagnosis and positively affects the prognosis; after further discussion, the patient decided to proceed with expectant management. Will repeat pelvic ultrasound periodically. Instructions given to patient to call in case any of the following occurs: pressure symptoms, abnormal uterine bleeding, pelvic pain; and to schedule a ultrasound appointment in a year . All questions answered, the patient verbalized understanding and agreed with the plan . Orders: Orders US pelvic and transvaginal 11 Months D25.9 - Leiomyoma of uterus, unspecified Coding Level of Care Code Est Pt Level 3 (42247) Diagnoses Uterine myoma D25.9
[2023-10-05 15:38] VITALS: BP 110/74; BMI 29.0
== END 2023-10-05 15:58 | disposition home or self-care (01) ==
LOC: HO.HWS 15:31
PROVIDERS: PCP Registered Nurse; Visit Provider Obstetrics & Gynecology
DX: D25.9 Leiomyoma of uterus, unspecified (principal)
CPT/HCPCS: 99213

== ENCOUNTER → 2023-10-05 15:25 | Outpatient (BNVA) | payer MEDICAID, SELFPAY | PROVIDERS: PCP Registered Nurse; Visit Provider Obstetrics & Gynecology | DX: D25.9 Leiomyoma of uterus, unspecified (principal) | CPT/HCPCS: 99212 ==

== ENCOUNTER 2023-12-05 07:15 | Outpatient (REF) | payer MEDICAID, SELFPAY ==
[2023-12-05 07:57] LABS: Hematocrit 40.1 % (37.0-47.0); Hemoglobin 12.9 g/dl (12.0-16.0); Mean Corpuscular HGB Conc 32.2 g/dl (31.0-35.0); Mean Corpuscular Hemoglobin 31.4 pg (27.0-33.0); Mean Corpuscular Volume 97.6 fL (80.0-98.0); Mean Platelet Volume 9.2 fL (9.4-12.3); Platelet Count 212 X10*3/uL (160-400); Red Blood Count 4.11 X10*6/uL (4.20-5.50); Red Cell Distribution Width 13.9 % (11.0-16.0)
[2023-12-05 08:02] LABS: Estimated Average Glucose 117 mg/dL; Hemoglobin A1C 127.2322 umol/L; Hemoglobin A1c % 5.7 % (<6.0)
[2023-12-05 08:32] LABS: Erythrocyte Sedimentation Rate 9 MM/HR (0-20)
[2023-12-05 08:36] LABS: Alanine Aminotransferase 9 U/L (0-31); Albumin Level 3.5 g/dL (3.5-5.0); Alkaline Phosphatase 62 U/L (39-117); Anion Gap 14 (12-20); Aspartate Amino Transferase 14 U/L (5-31); Bilirubin Total 0.3 mg/dL (0.0-1.0); Blood Urea Nitrogen 12 mg/dL (9-16); C Reactive Protein 0.94 mg/dL (< or = 0.50); Calcium 9.2 mg/dL (8.4-10.2); Carbon Dioxide 26 mmol/L (22-29); Chloride 105 mmol/L (96-108); Cholesterol 200 mg/dL (<200); Estimated Glomerular Filt Rate > 60; Glucose Random 100 mg/dL (60-115); HDL Cholesterol 51 mg/dL (>40); LDL Cholesterol Calculated 121 mg/dL (<100); Potassium 4.9 mmol/L (3.3-5.1); Sodium 140 mmol/L (135-145); Total Protein 7.5 g/dL (6.5-8.0); Triglycerides 144 mg/dL (<150)
[2023-12-05 08:53] LABS: TSH reflex Free T4 2.54 uIU/mL (0.32-4.0)
[2023-12-05 12:15] LABS: CT PCR NOT DETECTED (Not Detect.); NG PCR NOT DETECTED (Not Detect.)
[2023-12-07 08:15] LABS: Syphilis Screen Nonreactive (Nonreactive)
[2023-12-07 08:56] LABS: HBS Num1 819.73 mIU/mL (0-7.99); HBc Num1 0.33 S/CO (0.00-0.79); HBsAGNum1 0.27 S/CO (0.00-0.99); HIV AB/AG Nonreactive (Nonreactive); HIV Num 1 0.04 S/CO (0.00-0.99); Hepatitis B Core Antibody Nonreactive (Nonreactive); Hepatitis B Surface Antigen Negative (Negative); ~HepC Num1 0.12 S/CO (0.00-0.79); ~Hepatitis B Surface Antibody REACTIVE (Nonreactive); ~Hepatitis C Antibody Nonreactive (Nonreactive)
[2023-12-07 10:25] LABS: Rheumatoid Factor < 13.0 IU/mL (<15.0)
[2023-12-09 15:48] LABS: Cyclic Citrullinated Peptide <16 UNITS
[2023-12-10 01:53] LABS: HLA B27 Positive (Negative)
[2023-12-10 12:48] LABS: Anti Nuclear Antibody Screen NEGATIVE (NEGATIVE)
== END 2023-12-05 07:16 | disposition home or self-care (01) ==
LOC: HO.LAB 07:15
PROVIDERS: PCP Student in an Organized Health Care Education/Training Program; Visit Provider Student in an Organized Health Care Education/Training Program
DX: Z00.00 Encounter for general adult medical examination without abnormal findings (principal); M54.50 Low back pain, unspecified
CPT/HCPCS: 0353U; 80053; 80061; 83036; 84443; 85027; 85652; 86038; 86140; 86200; 86431; 86704; 86706; 86780; 86803; 86812; 87340; 87389

== ENCOUNTER 2024-02-17 12:07 | Outpatient (REF) | payer MEDICAID, SELFPAY ==
[2024-02-18 16:40] LABS: H Pylori Breath Test Negative (Negative)
== END 2024-02-17 12:08 | disposition home or self-care (01) ==
LOC: HO.HHCLNP 12:07
PROVIDERS: Visit Provider Student in an Organized Health Care Education/Training Program
DX: K29.70 Gastritis, unspecified, without bleeding (principal)
CPT/HCPCS: 83013

== ENCOUNTER 2024-02-26 08:19 | Outpatient (REF) | payer MEDICAID, SELFPAY ==
--- NOTE | ~2024-02-26 | US_ITS ---
EXAMINATION: US ABDOMEN COMPLETE CLINICAL INFORMATION: Left upper quadrant discomfort, chronic. COMPARISON: CT abdomen and pelvis 10/07/2021. Ultrasound abdomen limited 05/30/2016. TECHNIQUE: Real-time imaging of the abdominal viscera. Limited visualization due to bowel gas. FINDINGS: PANCREAS: Limited visualization of pancreatic tail and head. Imaged portion of pancreatic body is unremarkable. ABDOMINAL AORTA: The proximal, mid, and distal segments are normal in caliber. INFERIOR VENA CAVA: Visualized portions are normal. LIVER: Increased hepatic parenchymal heterogeneity and echogenicity could be associated with hepatocellular disease/hepatic steatosis and substantially limits visualization. Correlation with liver function tests and clinical exam recommended to determine further management. GALLBLADDER: Surgically absent. COMMON BILE DUCT: Normal in caliber measuring 0.2 cm in diameter. RIGHT KIDNEY: No hydronephrosis. No renal calculi. Limited visualization. The kidney measures 9.7 cm in maximum dimension. LEFT KIDNEY: No hydronephrosis. No renal calculi. Limited visualization. The kidney measures 10.1 cm in maximum dimension. SPLEEN: Normal. The spleen measures 9.5 cm in maximum dimension. FREE FLUID: None. ADDITIONAL FINDINGS: Targeted ultrasound images were obtained by the police detective of the area of concern as indicated by the patient in the midline and left abdomen demonstrated no discrete mass or fluid collection, although visualization limited due to bowel gas. Radiologist was not in attendance. Images were later provided for interpretation. US/US abdomen complete IMPRESSION: 1. Increased hepatic parenchymal heterogeneity and echogenicity could be associated with hepatocellular disease/hepatic steatosis and substantially limits visualization. Correlation with liver function tests and clinical exam recommended to determine further management. 2. Gallbladder surgically absent. 3. Targeted ultrasound images were obtained by the police detective of the area of concern as indicated by the patient in the midline and left abdomen demonstrated no discrete mass or fluid collection, although visualization limited due to bowel gas. CT scan could be considered for further evaluation.
--- NOTE | ~2024-02-26 | MM_ITS ---
EXAMINATION: MM SCREENING DIGITAL BREAST TOMOSYNTHESIS, BILATERAL CLINICAL INFORMATION: Screening. Asymptomatic. COMPARISON: Mammography: This study is compared with prior exams dating back to 2019. TECHNIQUE: Digital breast tomosynthesis is performed in both the craniocaudal and mediolateral oblique views along with computer-aided detection (CAD). Synthesized 2D images are generated from the tomosynthesis. FINDINGS: There are scattered areas of fibroglandular density (ACR BI-RADS breast composition Category b). There are no significant masses, abnormal calcifications, or other abnormalities. MM/MM tomosynthesis screening BI IMPRESSION: No mammographic evidence of malignancy. ASSESSMENT: BI-RADS BI-RADS 1 - Negative RECOMMENDATION: Routine annual mammography screening. 1 year F/U This examination should not preclude the clinical evaluation of a suspicious palpable abnormality. This patient's information was entered into a reminder system with a target due date for their next mammogram. Electronically signed by: Karen Herrera MD 03/28/2024 11:04 PM EDT
== END 2024-02-26 08:20 | disposition home or self-care (01) ==
LOC: HO.US 08:19
PROVIDERS: PCP Student in an Organized Health Care Education/Training Program; Visit Provider Student in an Organized Health Care Education/Training Program
DX: Z12.31 Encounter for screening mammogram for malignant neoplasm of breast (principal); R10.12 Left upper quadrant pain
CPT/HCPCS: 76700; 77063; 77067

== ENCOUNTER → 2024-02-26 09:15 | Outpatient (BNV) | payer MEDICAID, SELFPAY | PROVIDERS: PCP Student in an Organized Health Care Education/Training Program; Visit Provider Radiology Diagnostic Radiology | DX: Z12.31 Encounter for screening mammogram for malignant neoplasm of breast (principal) | CPT/HCPCS: 77063; 77067 ==

== ENCOUNTER 2024-03-02 16:01 | Outpatient (REF) | payer MEDICAID, SELFPAY ==
[2024-03-02 17:51] LABS: Rheumatoid Factor < 13.0 IU/mL (<15.0)
[2024-03-07 10:39] LABS: Anti Nuclear Antibody Screen NEGATIVE (NEGATIVE)
[2024-03-07 16:25] LABS: Cyclic Citrullinated Peptide <16 UNITS
== END 2024-03-02 16:02 | disposition home or self-care (01) ==
LOC: HO.LAB 16:01
PROVIDERS: PCP Student in an Organized Health Care Education/Training Program; Visit Provider Registered Nurse
DX: G40.909 Epilepsy, unspecified, not intractable, without status epilepticus (principal); R79.82 Elevated C-reactive protein (CRP); Z79.899 Other long term (current) drug therapy
CPT/HCPCS: 36415; 80164; 86038; 86200; 86431

== ENCOUNTER 2024-03-08 10:27 | Outpatient (AMB) | payer MEDICAID, SELFPAY ==
--- NOTE | 2024-03-08 10:44 | A.OFFVIS_ITS ---
Vital Signs 03/08/24 10:50 Height 5 ft 2 in Weight 165 lb 12.602 oz BMI 30.3 BP 104/70 Blood Pressure Location Rt brachial Position Sitting Pulse 91 Pulse Source Pulse Oximeter Pulse Oximetry (%) 97 Oxygen Delivery Method Room Air Intake Visit Reasons: + CRP/CM Intake Note: Patient presents for + CRP. 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 [employer] Present [employer] Name: Aaron [id number] Information Interpreted: non-clinical & clinical Allergies aspirin [ASPIRIN] Allergy (Unknown, Verified 03/08/24 10:46) SWELLING, facial swelling Medication List - Last Reconciled 03/08/24 by Saeed Melendez MD acetaminophen 500 mg PO Q6H PRN clonazepam 0.5 mg PO BEDTIME cyclobenzaprine 5 mg PO TID PRN dicyclomine 10 mg PO TID divalproex (Depakote) 750 mg (1.5 x 500 mg) PO BID 30 days duloxetine 1 cap PO DAILY famotidine 20 mg PO BEDTIME PRN gabapentin 300 mg PO TID lidocaine 5% patches topical omeprazole 20 mg PO DAILY semaglutide (weight loss) (Wegovy) mg subcut QWEEK triamcinolone acetonide 0.1% appl topical HPI Comments Details: This is a 53-year-old female who presents for evaluation of chronic back pain with positive HLA B27. Patient was evaluated by Dr. Reba gonzales in 2016 and he wants to start patient on Enbrel. Apparently it was not authorized by insurance. Patient states that she has had chronic low back pain for more than 8 years. The pain lasts all day, she has morning stiffness of her back that lasts more than 10 minutes but it it does not go away throughout the day. Also has pain at the radial aspect of her hands bilaterally without any significant swelling. She states that she tore her meniscus 6 or 7 months ago , surgery was offered but patient decided to do PT. She continues to have right knee pain but it has improved compared to how it was. She states that she took Advil in the past for her pains and it did not help much. She denies any history suggestive of psoriasis, uveitis or colitis. She is unaware of any family history of an autoimmune rheumatic disease. Denies any history of DVT/PE. 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 Sexual orientation: Straight/Heterosexual Gender identity: Female Female Reproductive History Menstrual Age of Menarche: 10 Total pregnancies: 3 Number of Living Children: 3 Review of Systems Const Denies fever(s) and Denies weight loss Eyes Reports no additional complaints Musc Reports back pain, Reports arthralgias, Reports limited range of motion and Reports stiffness Physical Exam Vital Signs: Last Vital Signs Pulse 91 03/08/24 10:50 BP 104/70 03/08/24 10:50 Pulse Ox 97 03/08/24 10:50 Oxygen Delivery Method Room Air 03/08/24 10:50 BMI result Body Mass Index 30.3 Const General: cooperative, healthy appearing and comfortable Nutritional Appearance: overweight Orientation/consciousness: patient oriented x3 Limitations: no limitations HEENT Head: Yes normocephalic and Yes atraumatic Mouth: moist mucous membranes Resp Effort & Inspection: normal respiratory effort and able to speak in complete sentences Auscultation: clear to auscultation bilaterally Cardio Rate: regular rate Rhythm: regular rhythm Skin General skin exam: no rashes or lesions noted Neuro General: patient oriented x3 Extrem Other: Hands, wrists without swelling or tenderness Normal 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 hand social services 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 strength No elbow pain with flexion-extension Normal range of motion of shoulders without pain Normal range of motion of neck Limited lateral flexion test bilaterally Stan test 10 to 12.5 cm Bilateral lower lumbar paraspinal muscle tenderness Negative straight leg raise test bilaterally Negative Fabere test bilaterally Right knee pain with range of motion No ankle swelling or tenderness bilaterally Results Reviewed Results Reviewed: Ordering Physician: Shravan Dnune MD Date of Service: 05/21/23 Procedure(s): XR sacrum coccyx min 2V Accession Number(s): [id number] cc: Shravan Dunne MD~ EXAMINATION: XR SACRUM AND COCCYX CLINICAL INFORMATION:? Low back and coccygeal pain status post fall 2 weeks ago COMPARISON:? None available.? TECHNIQUE:? 3 views of the sacrum and coccyx FINDINGS: No acute visible fracture or dislocation. Joint spaces and alignment are maintained. Soft tissues are unremarkable.? XR/XR sacrum coccyx min 2V IMPRESSION: No acute visible fracture or dislocation. ? Ordering Physician: Manny Bhatti MD Date of Service: 04/08/23 Procedure(s): CT lumbar spine wo IV con Accession Number(s): [id number] cc: Manny Bhatti MD; [facility]~ EXAMINATION:? CT LUMBAR SPINE WITHOUT CONTRAST CLINICAL INFORMATION:? Spondylosis without myelopathy.?? COMPARISON:? CT scan of the abdomen and pelvis 10/07/2021. Plain films of the thoracic and lumbar spine 07/24/2014.? ?? TECHNIQUE:? A noncontrast axial CT scan of the lumbar spine was obtained. Coronal and sagittal reformatted images were generated at the acquisition workstation.?? This CT examination was performed using dose optimization techniques as appropriate, variously including the following: *Automated exposure control *Adjustment of mA and/or kV according to patient size (this includes techniques or standardized protocols for targeted exams where dose is matched to indication/reason for exam; i.e. extremities or head) *Use of iterative reconstruction technique DLP; 523 mGy-cm FINDINGS:? VERTEBRAL BODIES AND PARASPINAL STRUCTURES: There are transitional vertebrae at the thoracolumbar and lumbosacral regions. There are hypoplastic ribs off the body of T12, and there is partial sacralization of L5. This should be correlated with plain films before any intervention is undertaken. There is a slight grade 1 anterolisthesis of L5 on S1. Intervertebral disc heights are maintained. The vertebral bodies have normal height and contour, and no fractures are demonstrated. 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 Overall, bone mineralization appears normal. There are cholecystectomy clips in the gallbladder fossa. The visualized retroperitoneal and pelvic structures are unremarkable. There are sclerotic changes of the right greater than left sacroiliac joints. SPINAL LEVELS: T12-L1: The facet joints appear normal bilaterally. Disc contour is normal. There is no central stenosis or foraminal narrowing. L1-L2: The facet joints appear normal bilaterally. Disc contour is normal. There is no central stenosis or foraminal narrowing. L2-L3: The facet joints appear normal bilaterally. Disc contour is normal. There is no central stenosis or foraminal narrowing. L3-L4: There are moderate bilateral facet arthropathic changes. There is a posterior disc protrusion without mass effect on the thecal sac and there is no central stenosis. The neural foramina are patent bilaterally. L4-L5: There are severe bilateral facet arthropathic changes. There is a posterior disc protrusion without mass effect on the thecal sac and there is no central stenosis. There is mild right foraminal narrowing. L5-S1: There is moderate bilateral facet arthropathy. There is partial sacralization of L5 on the left with pseudoarticulation between L5 and S1 with sclerosis and vacuum changes. There is mild unroofing of the disc as a result of the anterolisthesis. The neural foramina are patent bilaterally. There is no central stenosis. CT/CT lumbar spine wo IV con IMPRESSION:? 1. There is a grade 1 anterolisthesis of L5 on S1. There is partial sacralization of L5 on the left with pseudoarticulation between L5 and S1. This should be correlated with plain films before any intervention is undertaken. ? 2. At L4-L5 there are severe facet arthropathic changes. There is a posterior disc protrusion without mass effect on the thecal sac and there is no central stenosis. There is mild right foraminal narrowing. ? 3. At L3-L4 there are moderate facet arthropathic changes. There is a posterior disc protrusion without mass effect on the thecal sac and there is no central stenosis. The neural foramina are patent. ? 4. There are no acute fractures or subluxations. There are sequelae of prior cholecystectomy. Assessment & Plan Assessment & Plan (1) Chronic low back pain: Code(s): M54.50 - Low back pain, unspecified; G89.29 - Other chronic pain Category: Medical Qualifiers: Back pain laterality: bilateral Sciatica presence: without sciatica Qualified Code(s): M54.50 - Low back pain, unspecified; G89.29 - Other chronic pain Plan: This is a 53-year-old female who presents for evaluation of chronic low back pain for at least 8 years. Labs showing positive HLA B27, elevated CRP. Previously evaluated by Dr. Britton in 2016 and Enbrel was recommended but it was not approved by insurance. Will work patient up for inflammatory back pain. Her bilateral SI joint x-rays did not show sacroiliitis. Will check bilateral SI joint MRIs to evaluate for sacroiliitis. Check bilateral hand x-rays Check labs today. Start naproxen 500 mg Twice daily as a treatment trial with Pepcid 20 mg Twice daily Follow-up in 8 weeks Plan I spent 49 minutes reviewing patient's chart, evaluating patient, ordering diagnostic workup, counseling patient and documenting in the chart Orders: Orders C Reactive Protein Today M45.9 - Ankylosing spondylitis of unspecified sites in spine Erythrocyte Sedimentation Rate Today M45.9 - Ankylosing spondylitis of unspecified sites in spine T Spot TB Today Z11.7 - Encounter for testing for latent tuberculosis infection MR sacroiliac joint SHAUNA wo con Today G89.29 - Other chronic pain, M54.50 - Low back pain, unspecified XR hand wrist RT Today M25.50 - Pain in unspecified joint Complete Blood Count Auto Diff Today M45.9 - Ankylosing spondylitis of unspecified sites in spine Comprehensive Met. Panel Today M45.9 - Ankylosing spondylitis of unspecified sites in spine Hepatitis A,B,C Profile Today Z11.59 - Encounter for screening for other viral diseases XR hand wrist LT Today M25.50 - Pain in unspecified joint Medications: New naproxen 500 mg PO BID 60 tabs 1RF famotidine 20 mg PO BID 60 tabs 1RF heartburn Coding Level of Care Code New Pt Level 4 (82270) Diagnoses Chronic bilateral low back pain without sciatica M54.50; G89.29 Back pain laterality: bilateral Sciatica presence: without sciatica
[2024-03-08 10:50] VITALS: BP 104/70; PULSE 91; O2SAT 97; BMI 30.3
== END 2024-03-08 11:25 | disposition home or self-care (01) ==
PROVIDERS: PCP Student in an Organized Health Care Education/Training Program; Visit Provider Student in an Organized Health Care Education/Training Program
DX: M54.50 Low back pain, unspecified (principal); G89.29 Other chronic pain
CPT/HCPCS: 99204

== ENCOUNTER 2024-03-08 10:27 | Outpatient (REF) | payer MEDICAID, SELFPAY ==
--- NOTE | ~2024-03-08 | XR_ITS ---
EXAMINATION: XR HAND/WRIST, RIGHT XR HAND/WRIST, LEFT CLINICAL INFORMATION: Status post pain in hands no trauma. COMPARISON: None TECHNIQUE: PA, lateral, and oblique views of the each hand and wrist. FINDINGS: RIGHT HAND/WRIST: The bones and soft tissues are normal. No fracture. Alignment is anatomic. Joint spaces are maintained. No erosions or soft tissue calcifications. LEFT HAND/WRIST: The bones and soft tissues are normal. No fracture. Alignment is anatomic. Joint spaces are maintained. No erosions or soft tissue calcifications. XR/XR hand wrist RT IMPRESSION: Normal radiographs of the hands and wrists. Electronically signed by: Mario Alberto Childs MD 03/20/2024 07:24 PM EDT RP
--- NOTE | ~2024-03-08 | XR_ITS ---
EXAMINATION: XR HAND/WRIST, RIGHT XR HAND/WRIST, LEFT CLINICAL INFORMATION: Status post pain in hands no trauma. COMPARISON: None TECHNIQUE: PA, lateral, and oblique views of the each hand and wrist. FINDINGS: RIGHT HAND/WRIST: The bones and soft tissues are normal. No fracture. Alignment is anatomic. Joint spaces are maintained. No erosions or soft tissue calcifications. LEFT HAND/WRIST: The bones and soft tissues are normal. No fracture. Alignment is anatomic. Joint spaces are maintained. No erosions or soft tissue calcifications. XR/XR hand wrist LT IMPRESSION: Normal radiographs of the hands and wrists. Electronically signed by: Mario Alberto Childs MD 03/20/2024 07:24 PM EDT RP
[2024-03-08 11:53] LABS: MANUAL DIFF FLAG NO
[2024-03-08 12:45] LABS: Basophils Percent Auto 0.7 % (0-2); Eosinophils Absolute Auto 0.3 X10*3/uL (0.0-0.4); Eosinophils Percent Auto 5.4 % (0-4); Hematocrit 39.8 % (37.0-47.0); Hemoglobin 12.8 g/dl (12.0-16.0); Imm Gran Abs Auto 0.03 X10*3/uL (0.00-0.03); Imm Gran Pct Auto 0.5 % (0.0-0.4); Lymphocytes Absolute Auto 1.8 X10*3/uL (1.2-4.9); Lymphocytes Percent Auto 29.1 % (20-40); Mean Corpuscular HGB Conc 32.2 g/dl (31.0-35.0); Mean Corpuscular Hemoglobin 30.8 pg (27.0-33.0); Mean Corpuscular Volume 95.7 fL (80.0-98.0); Mean Platelet Volume 9.6 fL (9.4-12.3); Monocytes Absolute Auto 0.6 X10*3/uL (0.1-1.2); Monocytes Percent Auto 9.6 % (2-11); Neutrophils Absolute Auto 3.4 x10*3/uL (2.0-8.3); Neutrophils Percent Auto 54.7 % (45-73); Platelet Count 229 X10*3/uL (160-400); Red Blood Count 4.16 X10*6/uL (4.20-5.50); Red Cell Distribution Width 13.9 % (11.0-16.0); White Blood Count 6.2 X10*3/uL (4.8-10.8)
[2024-03-08 13:25] LABS: Erythrocyte Sedimentation Rate 8 MM/HR (0-20)
[2024-03-08 14:11] LABS: Alanine Aminotransferase 15 U/L (0-31); Albumin Level 3.6 g/dL (3.5-5.0); Alkaline Phosphatase 67 U/L (39-117); Anion Gap 12 (12-20); Aspartate Amino Transferase 17 U/L (5-31); Bilirubin Total 0.3 mg/dL (0.0-1.0); Blood Urea Nitrogen 12 mg/dL (9-16); C Reactive Protein 0.75 mg/dL (< or = 0.50); Calcium 9.4 mg/dL (8.4-10.2); Carbon Dioxide 28 mmol/L (22-29); Chloride 101 mmol/L (96-108); Estimated Glomerular Filt Rate > 60; Glucose Random 112 mg/dL (60-115); Sodium 137 mmol/L (135-145); Total Protein 7.7 g/dL (6.5-8.0)
[2024-03-09 08:39] LABS: HBS Num1 155.75 mIU/mL (0-7.99); HBc Num1 0.25 S/CO (0.00-0.79); HBsAGNum1 0.25 S/CO (0.00-0.99); Hepatitis A Antibody IgM 0.21 Index (0-0.79); Hepatitis B Core Antibody Nonreactive (Nonreactive); Hepatitis B Surface Antigen Negative (Negative); ~HepC Num1 0.15 S/CO (0.00-0.79); ~Hepatitis A Antibody IgM Nonreactive (Nonreactive); ~Hepatitis B Surface Antibody REACTIVE (Nonreactive); ~Hepatitis C Antibody Nonreactive (Nonreactive)
[2024-03-11 02:13] LABS: TS Negative Control Passed; TS Panel A 9; TS Panel B 3; TS Positive Control Passed; TSpotTB Positive (Negative)
== END 2024-03-08 10:28 | disposition home or self-care (01) ==
LOC: HO.LAB 10:27
PROVIDERS: PCP Student in an Organized Health Care Education/Training Program; Visit Provider Student in an Organized Health Care Education/Training Program
DX: M45.9 Ankylosing spondylitis of unspecified sites in spine (principal); Z11.7 Encounter for testing for latent tuberculosis infection; Z11.59 Encounter for screening for other viral diseases; M25.50 Pain in unspecified joint; M54.50 Low back pain, unspecified; G89.29 Other chronic pain
CPT/HCPCS: 36415; 73110; 73130; 80053; 85025; 85652; 86140; 86481; 86704; 86706; 86709; 86803; 87340; 99202

== ENCOUNTER 2024-03-22 14:55 | Outpatient (REF) | payer MEDICAID, SELFPAY ==
--- NOTE | ~2024-03-22 | XR_ITS ---
EXAMINATION: XR CHEST CLINICAL INFORMATION: Positive TB test COMPARISON: None available. TECHNIQUE: 2 views of the chest were obtained. FINDINGS: No significant abnormality is noted involving the heart, lungs, mediastinum, bony thorax or soft tissues. XR/XR chest 2V IMPRESSION: Unremarkable examination. Electronically signed by: Josué Crain MD 04/06/2024 03:43 PM EDT RP
== END 2024-03-22 14:56 | disposition home or self-care (01) ==
LOC: HO.HHCX 14:55
PROVIDERS: Visit Provider Student in an Organized Health Care Education/Training Program
DX: R76.11 Nonspecific reaction to tuberculin skin test without active tuberculosis (principal)
CPT/HCPCS: 71046

== ENCOUNTER 2024-04-15 08:29 | Outpatient (REF) | payer MEDICAID, SELFPAY ==
[2024-04-15 10:13] LABS: Valproate 73.5 mcg/mL (50.0-100.0)
== END 2024-04-15 08:30 | disposition home or self-care (01) ==
LOC: HO.LAB 08:29
PROVIDERS: PCP Student in an Organized Health Care Education/Training Program; Visit Provider Registered Nurse
DX: G40.909 Epilepsy, unspecified, not intractable, without status epilepticus (principal)
CPT/HCPCS: 36415; 80164

== ENCOUNTER 2024-06-18 07:41 | Outpatient (REF) | payer OTHER, SELFPAY ==
[2024-06-18 08:52] LABS: Alanine Aminotransferase 22 U/L (0-31); Albumin Level 3.6 g/dL (3.5-5.0); Alkaline Phosphatase 63 U/L (39-117); Anion Gap 11 (12-20); Aspartate Amino Transferase 16 U/L (5-31); Bilirubin Total 0.4 mg/dL (0.0-1.0); Blood Urea Nitrogen 12 mg/dL (9-16); Calcium 9.2 mg/dL (8.4-10.2); Carbon Dioxide 29 mmol/L (22-29); Chloride 104 mmol/L (96-108); Estimated Glomerular Filt Rate > 60; Glucose Random 89 mg/dL (60-115); Potassium 4.7 mmol/L (3.3-5.1); Sodium 139 mmol/L (135-145); Total Protein 7.3 g/dL (6.5-8.0)
== END 2024-06-18 07:42 | disposition home or self-care (01) ==
LOC: HO.LAB 07:41
PROVIDERS: PCP Student in an Organized Health Care Education/Training Program; Visit Provider Student in an Organized Health Care Education/Training Program
DX: Z22.7 Latent tuberculosis (principal)
CPT/HCPCS: 36415; 80053

== ENCOUNTER 2024-07-05 13:36 | Outpatient (AMB) | payer OTHER, SELFPAY ==
--- NOTE | 2024-07-05 14:09 | A.OFFVIS_ITS ---
Intake Visit Reasons: Left knee pain and giving way Intake Note: Karen is a 54 year old female who presents with complaints of progressively worsening bilateral knee pains and giving way, left greater than right. The patient describes her left knee pain as sharp in nature. Most of the pain is along the medial aspect of her knee. The patient states he injured her left knee approximately 1 year ago. She twisted her knee and had acute onset of pain. She has failed the last 6 weeks of conservative treatment which has consisted of Tylenol, anti-inflammatory medicines, topical cream and physical therapy exercises which aggravated her pain. She states that her left knee will give out several times per day. She states that her right knee pain is tolerable to her at this time. Nutrition Associate Required: Yes Nutrition Associate Language: Wooden Box Maker Name: DORON Parker/JARVIS Allergies aspirin [ASPIRIN] Allergy (Unknown, Verified 07/05/24 14:11) SWELLING, facial swelling Medication List - Last Reconciled 07/05/24 by Keyon Bowles MD acetaminophen 500 mg PO Q6H PRN clonazepam 0.5 mg PO BEDTIME cyclobenzaprine 5 mg PO TID PRN dicyclomine 10 mg PO TID divalproex (Depakote) 750 mg (1.5 x 500 mg) PO BID 30 days duloxetine 1 cap PO DAILY famotidine 20 mg PO BID gabapentin 300 mg PO TID lidocaine 5% patches topical naproxen 500 mg PO BID omeprazole 20 mg PO DAILY semaglutide (weight loss) (Wegovy) mg subcut QWEEK triamcinolone acetonide 0.1% appl topical PFSH Medical History Migraine Anxiety disorder Fibromyalgia Seizure Surgical History History of cholecystectomy History of tubal ligation Family History Maternal Grandmother Diabetes Father HTN (hypertension) Mother HTN (hypertension) Social History Household Members: Spouse Household Members Other:: son Housing: House Alcohol intake: current Alcohol intake frequency: holidays/special occasions only Patient Tobacco Use Status: Never used Tobacco Current occupational status: employed 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 Sexual orientation: Straight/Heterosexual Gender identity: Female Female Reproductive History Menstrual Age of Menarche: 10 Physical Exam Const Other: Well-nourished well-developed very friendly female awake alert and oriented x3 in no acute distress Extrem Other: Bilateral lower extremity examination shows good capillary refill, no skin lesions noted, normal sensation light touch Bilateral knee examination shows minimal effusions, minimal crepitus with range of motion, tenderness along her medial joint lines, positive Jose's test, no instability Results Reviewed Results Reviewed: Standing full weight-bearing x-rays of the patient's bilateral knee show mild diffuse joint space narrowing, no acute bony abnormalities Assessment & Plan Assessment & Plan (1) Tear of medial meniscus of left knee: Code(s): S83.242A - Other tear of medial meniscus, current injury, left knee, initial encounter Category: Medical Plan Ms. Og presents with bilateral knee pains and mechanical symptoms, left greater than right, most likely due to tearing of her medial menisci. Thus, I will send the patient for an MRI of her left knee for further evaluation. I will see her back once the MRI is completed to discuss the findings and treatment options. Feel free to call me at any time should questions regarding her orthopedic management arise. I spent 20 minutes in reviewing the patient's records and imaging studies, seeing the patient and documenting in the medical record. Orders: Orders XR knee LT 3V Today M25.562 - Pain in left knee XR knee RT 3V Today M25.561 - Pain in right knee MR knee LT wo con Today S83.242A - Other tear of medial meniscus, current injury, left knee, initial encounter Coding Level of Care Code Est Pt Level 3 (89529) Complex EM visit Add On G2211 Diagnoses Tear of medial meniscus of left knee S83.242A
--- OUTSIDE RECORDS SUMMARY | 2024-07-06 21:42 | XMS_ITS | Data Portability ---
Author Organization [place] - [facility], Allergy Address [address] [place] [phone] Care Team Providers Care Product Development Specialist Name Role Phone [facility] Primary Care Provider Assessment Encounter Date Assessment Date Assessment LastModified by Organization Details LastModified Time 07/05/2024 07/05/2024 Patient's audiogram shows no significant sensorineural hearing loss with well maintained speech discrimination. There is not enough hearing loss to significantly affect day-to-day hearing performance. I gave the patient reassurance that hearing aids are typically not recommended for this level of hearing. We did discuss that hearing loss can progress over time. We discussed the pathophysiology of hearing loss and risk factors for progression including aging and noise exposure. We did discuss that some people have more difficulty hearing in background noise and that she might take more control of her auditory environment to reduce this effect. Recommend followup hearing testing as needed for subjective changes in hearing. [email or web address] Not available 07/05/2024 11:53:16 Plan of Treatment Reminders Order Date Submit Date Provider Last Modified By Organization Details Last Modified Time Details Appointments None record ed. Lab None record ed. Referral None record ed. Procedures None record ed. Surgeries None record ed. Imaging None record ed. Medication Orders None record ed. Patient TargetsNo targets recorded. Patient InstructionsNo instructions recorded. Reason for Referral None Reported. Results Created Date Observation Date Name Description Value Unit Range Abnormal Flag Note LastModifiedBy Organization Detail LastModifiedTime 07/05/20 24 audio gram No observ ation record ed. BARCODE Not Available 2023 14:07:50 Result Notes None recorded. Problems Name Problem SNOMED Code Status Onset Date Resolution Date Notes Provider Name and Address Organization Details Recorded Time Abnormal auditory perception 57006720 Active 024 Claudia pollard MA [facility] 11:26:51 Problem Notes None recorded. Procedures Surgical History Date Name Laterality Status Provider Name and Address Organization Details Recorded Time 07/05/20 24 Tympanometry (37443) completed Claudia Love [facility] 07/05/2024 11:26:42 07/05/20 24 [employer] Bone [employer] (14191) completed Claudia Love [facility] 07/05/2024 11:26:38 Imaging Results Imaging Date Name Status LastModified by Organiz ation Details LastModified Time 07/05/2024 audiogram completed BARCODE Information no t available 07/05/2024 14:07:50 Procedure Notes None recorded. Medical Equipment None Reported. Allergies Allergen ID Allergen Name Allergen Category Reaction Reaction Severity Criticality Documentation Date Start Date Code Code System Note Provider Name and Address Organization Details Recorded Time 144905 aspirin medicatio n Not available Not available Not available 07/05/2024 1191 RxNorm Martine pollard MA [facility] 11:36:59 Medications Name Sig Start Date Stop Date Status Note LastModified by Organization Details LastModified Time clonazepam 0.5 mg tablet TAKE 1 TABLET BY MOUTH EVERY DAY AT BEDTIME active Not Available Not Available No t Available divalproex 500 mg tablet,rosa yed release TAKE 1 TABLET BY MOUTH EVERY DAY IN THE MORNING, AND TAKE 2 TABLETS BY MOUTH EVERY DAY IN THE EVENING active Not Available Not Available No t Available acetaminoph en 500 mg tablet TAKE 1 TABLET BY MOUTH EVERY 6 HOURS NEEDED FOR MILD PAIN 07/05 completed Not Available Not Available Not Available triamcinolo ne acetonide 0.1 % topical cream APPLY TOPICALLY TO THE AFFECTED AREA(S) TWICE DAILY IN THE MORNING AND AT BEDTIME NEEDED PAIN AND SWELLING active Not Available Not Available No t Available rifampin 300 mg capsule TAKE 2 CAPSULES BY MOUTH EVERY DAY active Not Available Not Available No t Available famotidine 20 mg tablet TAKE 1 TABLET BY MOUTH TWICE DAILY NEEDED FOR HEARTBURN active Not Available Not Available No t Available lidocaine 5 % topical patch APPLY 1 PATCH TOPICALLY TO SKIN, LEAVE ON FOR 12 HOURS AND OFF FOR 12 HOURS DIRECTED active Not Available Not Available No t Available gabapentin 300 mg capsule TAKE 1 CAPSULE BY MOUTH THREE TIMES DAILY active Not Available Not Available No t Available dicyclomine 10 mg capsule TAKE 1 CAPSULE BY MOUTH THREE TIMES DAILY active Not Available Not Available No t Available duloxetine 60 mg capsule,del ayed release TAKE 1 CAPSULE BY MOUTH EVERY DAY IN THE MORNING, DO NOT BREAK, CRUSH, DISSOLVE OR CHEW 07/05 completed Not Available Not Available Not Available Wegovy 0.25 mg/0.5 mL subcutaneou s pen injector INJECT ONE PEN (=0.25MG) SUBCUTANE OUSLY ONCE A WEEK DIRECTED FOR WEEKS 1 TO 4 07/05 completed Not Available Not Available Not Available Wegovy 0.5 mg/0.5 mL subcutaneou s pen injector INJECT ONE PEN (=0.5MG) SUBCUTANE OUSLY ONCE A WEEK DIRECTED active Not Available Not Available No t Available Vitals Date Recorded Body height Body weight Provider Name and Address Organization Details Last Updated DateTime 07/05/2024 157.48 cm 67927.86 g Martine Pearce [place] - [facility] 07/05/2024 11:36:51 Social History None recorded. Functional Status None recorded. Mental Status None recorded. Family History Nothing Reported. Medical History Condition Response GERD/Reflux Y Gynecological HistoryNo gynecological history recorded. Obstetrics History GPAL:G 0 P 0 0 0 0 Past Encounters Encounter ID Performer Location Encounter Start Date Encounter Closed Date Diagnosis/Indication Diagnosis SNOMED-CT Code Diagnosis ICD10 Code [id number] BALBIR HENDRICKSON MD [facility] [address] [address] 07/05/2024 10:26:51 07/05/2024 11:54:36 Abnormal auditory perception 91216391 H93.299 Health Concerns Section Related Observation LastModified by Organization Detai ls LastModified Time None Recorded Concern Status LastModified by Organization Details LastModified Time None Recorded Advance Directives Directive None Recorded Payers Encounter Date Sequence Insurance Name Policy Number Policy Melvin Covered Member ID Melvin Member ID Guarantor Name 07/05/2024 1 [facility] (O) Karen Og [id number] Karen gO Notes Date Note Type Note Provider Name and Address Organization Details Recorded Time 07/05/2024 text/html Patient comes in for evaluation of hearing loss. Patient has been noticing difficulty hearing in a variety of different listening environments, particularly exacerbated by background noise. Hearing loss has been {{gradual* rapidly progressive}} over a period of {{ 6#}} {{months years*}}. Patient notes {{no tinnitus* tinnitus }} {{localized to the right ear localized to the left ear nonlocalizing in either ear*}} Patient comes in for audiometric testing and discussion of possible remedies for hearing loss. BALBIR HENDRICKSON MD [address] [place] [address], [phone], [facility] - [facility] 07/05/2024 11:53:35 OBGyn Episode No OBEpisode recorded.
--- OUTSIDE RECORDS SUMMARY | 2024-07-06 21:43 | XMS_ITS | Continuity of Care Document ---
Author Organization [place] - [facility], [facility] Address [address] [place] [address] Care Team Providers Care Area Sales Manager Name Role Phone [facility] Primary Care Provider Assessment Encounter Date [...] as needed for subjective changes in hearing. [email or web address] Not available 07/05/2024 11:53:16 Plan of Treatment [...] Organization Details Recorded Time Abnormal auditory perception 06109695 Active 024 Claudia pollard MA [facility] 11:26:51 Problem Notes None recorded. Procedures Surgical History Date Name Laterality Status Provider Name and Address Organization Details Recorded Time 07/05/20 24 Tympanometry (02257) completed Claudia Love [facility] 07/05/2024 11:26:42 07/05/20 24 [employer] (38113) completed Claudia Love [facility] 07/05/2024 11:26:38 Imaging Results None recorded. Procedure Notes None recorded. Medical Equipment None Reported. Allergies Allergen ID Allergen Name Allergen Category Reaction Reaction Severity Criticality Documentation Date Start Date Code Code System Note Provider Name and Address Organization Details Recorded Time 254581 aspirin medicatio n Not available Not available Not available 07/05/2024 1191 RxNorm Martine pollard MA [facility] 11:36:59 Medications Name Sig Start Date [...] Details Last Updated DateTime 07/05/2024 157.48 cm 96130.86 g Martine Pearce MA - [facility] 07/05/2024 11:36:51 Social History None recorded. Functional Status None recorded. Mental Status None recorded. Family History Nothing Reported. Medical History Condition Response GERD/Reflux Y Gynecological HistoryNo gynecological history recorded. Obstetrics History GPAL:G 0 P 0 0 0 0 Past Encounters Encounter ID Performer Location Encounter Start Date Encounter Closed Date Diagnosis/Indication Diagnosis SNOMED-CT Code Diagnosis ICD10 Code [id number] BALBIR HENDRICKSON MD [facility] of [address] [address] 07/05/2024 10:26:51 07/05/2024 11:54:36 Abnormal auditory perception 87691447 H93.299 Health Concerns Section Related Observation LastModified by Organization Detai ls LastModified Time None Recorded Concern Status LastModified by Organization Details LastModified Time None Recorded Payers Encounter Date Sequence Insurance Name Policy Number Policy Melvin Covered Member ID Melvin Member ID Guarantor Name 07/05/2024 1 [facility] (O) Karen Og [id number] Karen Og Notes Date Note Type Note Provider Name [...] remedies for hearing loss. BALBIR HENDRICKSON MD [address] [place] [address], [phone], [facility] - [facility] 07/05/2024 11:53:35 OBGyn Episode No OBEpisode recorded.
== END 2024-07-05 14:32 | disposition home or self-care (01) ==
PROVIDERS: PCP Student in an Organized Health Care Education/Training Program; Visit Provider Orthopaedic Surgery
DX: S83.242A Other tear of medial meniscus, current injury, left knee, initial encounter (principal)
CPT/HCPCS: 99213; G2211

== ENCOUNTER 2024-07-05 16:03 | Outpatient (REF) | payer OTHER, SELFPAY ==
--- NOTE | ~2024-07-05 | XR_ITS ---
EXAMINATION: XR LEFT KNEE CLINICAL INFORMATION: Pain in left knee M25.562. COMPARISON: XR Right knee 07/09/2023 TECHNIQUE: Three views of the left knee. FINDINGS: Mild lateral compartment arthritis, with mild joint space loss. Small marginal spurring in the medial compartment. No visible acute fracture or dislocation. Small suprapatellar joint fluid. XR/XR knee LT 3V IMPRESSION: Mild arthritis. Study is assigned/presented to me for interpretation on Aug 11, 2024 Electronically signed by: Jeremias Morales MD 08/11/2024 04:40 PM [facility]
--- NOTE | ~2024-07-05 | XR_ITS ---
EXAMINATION: XR KNEE RIGHT CLINICAL INFORMATION: Pain in right knee M25.561. COMPARISON: XR Right knee 07/09/2023 TECHNIQUE: 3 views of the right knee. FINDINGS: No evidence of acute fracture or dislocation. No significant effusion. Mild medial and lateral compartment arthritis. At least mild patellofemoral arthritis. Suboptimal skyline limits evaluation. No abnormal soft tissue calcification. XR/XR knee RT 3V IMPRESSION: Tricompartment osteoarthritis. Study is assigned/presented to me for interpretation on Aug 11, 2024 Electronically signed by: Jeremias Morales MD 08/11/2024 04:44 PM [facility]
== END 2024-07-05 16:04 | disposition home or self-care (01) ==
LOC: HO.HOSX 16:03
PROVIDERS: Visit Provider Orthopaedic Surgery
DX: M25.562 Pain in left knee (principal); M25.561 Pain in right knee; S83.242A Other tear of medial meniscus, current injury, left knee, initial encounter
CPT/HCPCS: 73562; 99212

== ENCOUNTER 2024-07-19 13:41 | Outpatient (AMB) | payer OTHER, SELFPAY ==
--- OUTSIDE RECORDS SUMMARY | 2024-07-19 13:43 | XMS_ITS | Continuity of Care Document ---
Author Organization [place] - [facility], [facility] Address [address] [place] [address] Care Team Providers Care Property Condition Assessor Name Role Phone [facility] Primary Care Provider Assessment Encounter Date [...] as needed for subjective changes in hearing. [email or web address] Not available 07/05/2024 11:53:16 Plan of Treatment [...] Organization Details Recorded Time Abnormal auditory perception 62918222 Active 024 Claudia pollard MA [facility] 11:26:51 Problem Notes None recorded. Procedures Surgical History Date Name Laterality Status Provider Name and Address Organization Details Recorded Time 07/05/20 24 Tympanometry (73745) completed Claudia Love [facility] 07/05/2024 11:26:42 07/05/20 24 [employer] (47890) completed Claudia Love [facility] 07/05/2024 11:26:38 Imaging Results None recorded. Procedure Notes None recorded. Medical Equipment None Reported. Allergies Allergen ID Allergen Name Allergen Category Reaction Reaction Severity Criticality Documentation Date Start Date Code Code System Note Provider Name and Address Organization Details Recorded Time 425377 aspirin medicatio n Not available Not available Not available 07/05/2024 1191 RxNorm Martine pollard MA [facility] 11:36:59 Medications Name Sig Start Date Stop [...] Details Last Updated DateTime 07/05/2024 157.48 cm 06486.86 g Martine Pearce MA - [facility] 07/05/2024 11:36:51 Social History None recorded. Functional Status None recorded. Mental Status None recorded. Family History Nothing Reported. Medical History Condition Response GERD/Reflux Y Gynecological HistoryNo gynecological history recorded. Obstetrics History GPAL:G 0 P 0 0 0 0 Past Encounters Encounter ID Performer Location Encounter Start Date Encounter Closed Date Diagnosis/Indication Diagnosis SNOMED-CT Code Diagnosis ICD10 Code [id number] BALBIR HENDRICKSON MD [facility] [address] [address] 07/05/2024 10:26:51 07/05/2024 11:54:36 Abnormal auditory perception 80247092 H93.299 Health Concerns Section Related Observation LastModified by Organization Detai ls LastModified Time None Recorded Concern Status LastModified by Organization Details LastModified Time None Recorded Payers Encounter Date Sequence Insurance Name Policy Number Policy Melvin Covered Member ID Melvin Member ID Guarantor Name 07/05/2024 1 [facility] (O) Karen Og [id number] Karen Og Notes Date Note Type [...] remedies for hearing loss. BALBIR HENDRICKSON MD [address] [place] [address], [phone], [facility] - [facility] 07/05/2024 11:53:35 OBGyn Episode No OBEpisode recorded.
--- NOTE | 2024-07-19 13:46 | A.OFFVIS_ITS ---
Vital Signs 07/19/24 13:47 Height 5 ft 2 in Weight 150 lb 5.684 oz BMI 27.5 BP 110/64 Blood Pressure Location Lt brachial Position Sitting Pulse 80 Pulse Source Pulse Oximeter Pulse Oximetry (%) 98 Oxygen Delivery Method Room Air Intake Visit Reasons: HLA b27 Intake Note: Patient last seen by Doctor Saeed Melendez on 03/08/24. Presents today for HLA b27 follow up and labs/X-ray's test results. Church Organist Name: Kati [id number], Cyndie [id number] Allergies aspirin [ASPIRIN] Allergy (Unknown, Verified 07/19/24 13:51) SWELLING, facial swelling Medication List - Last Reconciled 07/19/24 by Saeed Melendez MD acetaminophen 500 mg PO Q6H PRN clonazepam 0.5 mg PO BEDTIME cyclobenzaprine 5 mg PO TID PRN dicyclomine 10 mg PO TID divalproex (Depakote) 750 mg (1.5 x 500 mg) PO BID 30 days duloxetine 1 cap PO DAILY famotidine 20 mg PO BID gabapentin 300 mg PO TID lidocaine 5% patches topical naproxen 500 mg PO BID omeprazole 20 mg PO DAILY semaglutide (weight loss) (Wegovy) mg subcut QWEEK triamcinolone acetonide 0.1% appl topical HPI Comments Details: Patient returns for follow-up. Unfortunately she did not complete her SI joint MRI. States that she continues to have intermittent joint aches including her knees, her hands, her back. She has morning stiffness lasting a few minutes. Last visit I had prescribed her naproxen. She states that she takes it rarely, once or twice a month. She was recently evaluated by orthopedics and a left knee MRI was ordered to rule out meniscus tear. 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 Patient was evaluated by Dr. Reba gonzales in 2016 and he wants to start patient on Enbrel. Apparently it was not authorized by insurance. Patient states that she has had chronic low back pain for more than 8 years. The pain lasts all day, she has morning stif fness of her back that lasts more than 10 minutes but it it does not go away throughout the day. Also has pain at the radial aspect of her hands bilaterally without any significant swelling. She states that she tore her meniscus 6 or 7 months ago , surgery was offered but patient decided to do PT. She continues to have right knee pain but it has improved compared to how it was. She states that she took Advil in the past for her pains and it did not help much. She denies any history suggestive of psoriasis, uveitis or colitis. She is unaware of any family history of an autoimmune rheumatic disease. Denies any history of DVT/PE. 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 Sexual orientation: Straight/Heterosexual Gender identity: Female Female Reproductive History Menstrual Age of Menarche: 10 Review of Systems Musc Reports back pain, Reports arthralgias, Reports limited range of motion and Reports stiffness Physical Exam Vital Signs: Last Vital Signs Pulse 80 07/19/24 13:47 BP 110/64 07/19/24 13:47 Pulse Ox 98 07/19/24 13:47 Oxygen Delivery Method Room Air 07/19/24 13:47 BMI result Body Mass Index 27.5 Const General: cooperative, healthy appearing and comfortable Nutritional Appearance: overweight Orientation/consciousness: patient oriented x3 Limitations: no limitations HEENT Head: Yes normocephalic and Yes atraumatic Mouth: moist mucous membranes Resp Effort & Inspection: normal respiratory effort and able to speak in complete sentences Auscultation: clear to auscultation bilaterally Cardio Rate: regular rate Rhythm: regular rhythm Skin General skin exam: no rashes or lesions noted Neuro General: patient oriented x3 Extrem Other: Hands, wrists without swelling or tenderness Normal bilateral hand superintendent horticulture strength No elbow pain with flexion-extension Normal range of motion of shoulders without pain Normal range of motion of neck Limited lateral flexion test bilaterally Stan test 10 to 12.5 cm Bilateral lower lumbar paraspinal muscle tenderness Negative straight leg raise test bilaterally Equivocal SHI test with right hip manipulation Negative Fabere test with left hip manipulation No ankle swelling or tenderness bilaterally Results Reviewed Results Reviewed: Ordering Physician: Shravan Dunne MD Date of Service: 05/21/23 Procedure(s): XR sacrum coccyx min 2V Accession Number(s): [id number] cc: Shravan Dunne MD~ EXAMINATION: XR SACRUM AND COCCYX CLINICAL INFORMATION:? Low back and coccygeal pain status post fall 2 weeks ago COMPARISON:? None available.? TECHNIQUE:? 3 views of the sacrum and coccyx FINDINGS: No acute visible fracture or dislocation. Joint spaces and alignment are maintained. Soft tissues are unremarkable.? XR/XR sacrum coccyx min 2V IMPRESSION: No acute visible fracture or dislocation. ? Ordering Physician: Manny Bhatti MD Date of Service: 04/08/23 Procedure(s): CT lumbar spine wo IV con Accession Number(s): [id number] cc: Manny Bhatti MD; Charito Lawrence [facility]~ EXAMINATION:? CT LUMBAR SPINE WITHOUT CONTRAST CLINICAL INFORMATION:? Spondylosis without myelopathy.?? COMPARISON:? CT scan of the abdomen and pelvis 10/07/2021. Plain films of the thoracic and lumbar spine 07/24/2014.? ?? TECHNIQUE:? A noncontrast axial CT scan of the lumbar spine was obtained. Coronal and sagittal reformatted images were generated at the acquisition workstation.?? This CT examination was performed using dose optimization techniques as appropriate, variously including the following: *Automated exposure control *Adjustment of mA and/or kV according to patient size (this includes techniques or standardized protocols for targeted exams where dose is matched to indication/reason for exam; i.e. extremities or head) *Use of iterative reconstruction technique DLP; 523 mGy-cm FINDINGS:? VERTEBRAL BODIES AND PARASPINAL STRUCTURES: There are transitional vertebrae at the thoracolumbar and lumbosacral regions. There are hypoplastic ribs off the body of T12, and there is partial sacralization of L5. This should be correlated with plain films before any intervention is undertaken. There is a slight grade 1 anterolisthesis of L5 on S1. Intervertebral disc heights are maintained. The vertebral bodies have normal height and contour, and no fractures are demonstrated. 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 Overall, bone mineralization appears normal. There are cholecystectomy clips in the gallbladder fossa. The visualized retroperitoneal and pelvic structures are unremarkable. There are sclerotic changes of the right greater than left sacroiliac joints. SPINAL LEVELS: T12-L1: The facet joints appear normal bilaterally. Disc contour is normal. There is no central stenosis or foraminal narrowing. L1-L2: The facet joints appear normal bilaterally. Disc contour is normal. There is no central stenosis or foraminal narrowing. L2-L3: The facet joints appear normal bilaterally. Disc contour is normal. There is no central stenosis or foraminal narrowing. L3-L4: There are moderate bilateral facet arthropathic changes. There is a posterior disc protrusion without mass effect on the thecal sac and there is no central stenosis. The neural foramina are patent bilaterally. L4-L5: There are severe bilateral facet arthropathic changes. There is a posterior disc protrusion without mass effect on the thecal sac and there is no central stenosis. There is mild right foraminal narrowing. L5-S1: There is moderate bilateral facet arthropathy. There is partial sacralization of L5 on the left with pseudoarticulation between L5 and S1 with sclerosis and vacuum changes. There is mild unroofing of the disc as a result of the anterolisthesis. The neural foramina are patent bilaterally. There is no central stenosis. CT/CT lumbar spine wo IV con IMPRESSION:? 1. There is a grade 1 anterolisthesis of L5 on S1. There is partial sacralization of L5 on the left with pseudoarticulation between L5 and S1. This should be correlated with plain films before any intervention is undertaken. ? 2. At L4-L5 there are severe facet arthropathic changes. There is a posterior disc protrusion without mass effect on the thecal sac and there is no central stenosis. There is mild right foraminal narrowing. ? 3. At L3-L4 there are moderate facet arthropathic changes. There is a posterior disc protrusion without mass effect on the thecal sac and there is no central stenosis. The neural foramina are patent. ? 4. There are no acute fractures or subluxations. There are sequelae of prior cholecystectomy. Assessment & Plan Assessment & Plan (1) Chronic low back pain: Code(s): M54.50 - Low back pain, unspecified; G89.29 - Other chronic pain Category: Medical Qualifiers: Back pain laterality: bilateral Sciatica presence: without sciatica Qualified Code(s): M54.50 - Low back pain, unspecified; G89.29 - Other chronic pain Plan: This is a 54-year-old female who presents for evaluation of chronic low back pain for at least 8 years. Labs showing positive HLA B27, elevated CRP. Previously evaluated by Dr. Britton in 2016 and Enbrel was recommended but it was not approved by insurance. Upon evaluation, she does not have clear-cut inflammatory back pain symptoms. She definitely has degenerative arthritis of her back, However given positive HLA B27 high CRP I had ordered an SI joint MRI last visit to evaluate for sacroiliitis. Unfortunately it was not completed. MRI reordered Follow-up after MRIs completed Plan I spent 15 minutes reviewing patient's chart, evaluating patient, ordering diagnostic workup, counseling patient and documenting in the chart Coding Level of Care Code Est Pt Level 3 (99381) Diagnoses Chronic bilateral low back pain without sciatica M54.50; G89.29 Back pain laterality: bilateral Sciatica presence: without sciatica
[2024-07-19 13:47] VITALS: BP 110/64; PULSE 80; O2SAT 98; BMI 27.5
== END 2024-07-19 14:41 | disposition home or self-care (01) ==
PROVIDERS: PCP Student in an Organized Health Care Education/Training Program; Visit Provider Student in an Organized Health Care Education/Training Program
DX: M54.50 Low back pain, unspecified (principal); G89.29 Other chronic pain
CPT/HCPCS: 99213

== ENCOUNTER → 2024-07-19 13:41 | Outpatient (BNVA) | payer OTHER, SELFPAY | PROVIDERS: PCP Student in an Organized Health Care Education/Training Program; Visit Provider Student in an Organized Health Care Education/Training Program | DX: M54.50 Low back pain, unspecified (principal); G89.29 Other chronic pain; M79.7 Fibromyalgia; Z91.81 History of falling | CPT/HCPCS: 99212 ==

== ENCOUNTER 2024-08-01 12:30 | Outpatient (REF) | payer OTHER, SELFPAY ==
--- NOTE | ~2024-08-01 | US_ITS ---
CLINICAL HISTORY: D25.9 - Leiomyoma of uterus, unspecified US pelvis transabdominal and transvaginal Comparison: US/[place]/SR - US PELVIC AND TRANSVAGINAL - 09/28/23 16:55 EST Findings: Transabdominal scanning performed for overall anatomy. Transvaginal scanning performed for additional detail. Anteverted uterus is 8 cm length. There are multiple intramural fibroids within the uterus including a 2.3 x 1.8 x 1.8 cm fibroid within the anterior aspect of the fundus (previously 1.9 x 1.2 x 1.7 cm), a 0.7 x 0.6 x 0.8 cm fibroid within the anterior uterine body, not previously measured, a 1.2 x 0.8 x 1.0 cm fibroid within the anterior uterine body (previously 1.4 x 1.1 x 1.0 cm), a 2.4 x 2.1 x 2.2 cm fibroid within the posterior uterine body (previously 1.3 x 1.0 x 1.0 cm), and a 2.8 x 2.2 x 2.4 cm fibroid within the posterior uterine body (previously 2.8 x 2.4 x 3.0 cm). Endometrium 5 mm thickness. Right ovary 2.1 x 1.3 x 1.8 cm. Left ovary not visualized secondary to overlying bowel gas. Normal color Doppler of the right ovary. No free fluid. IMPRESSION: 1. Multiple intramural fibroids within the uterus. This document has been electronically signed by: Yeni Hutchison MD on 08/02/2024 16:26:08
--- OUTSIDE RECORDS SUMMARY | 2024-08-01 14:24 | XMS_ITS | Continuity of Care Document ---
Author Organization [place] [facility], [facility] Address [address] [place] [address] Care Team Providers Care Marketing Research Intern Name Role Phone [facility] Primary Care Provider Assessment Encounter Date [...] as needed for subjective changes in hearing. [email or web address] Not available 07/05/2024 11:53:16 Plan of Treatment [...] Organization Details Recorded Time Abnormal auditory perception 91949114 Active 12/10/2 024 Claudia pollard [facility] 11:26:51 Problem Notes None recorded. Procedures Surgical History Date Name Laterality Status Provider Name and Address Organization Details Recorded Time 07/05/20 24 Tympanometry (62979) completed Claudia Love [facility] 07/05/2024 11:26:42 07/05/20 24 [employer] (96220) completed Claudia Love [facility] 07/05/2024 11:26:38 Imaging Results None recorded. Procedure Notes None recorded. Medical Equipment None Reported. Allergies Allergen ID Allergen Name Allergen Category Reaction Reaction Severity Criticality Documentation Date Start Date Code Code System Note Provider Name and Address Organization Details Recorded Time 166505 aspirin medicatio n Not available Not available Not available 07/05/2024 1191 RxNorm Martine pollard [facility] 11:36:59 Medications Name Sig Start Date [...] Details Last Updated DateTime 07/05/2024 157.48 cm 50437.86 g Martine Pearce [place] [facility] [place] 07/05/2024 11:36:51 Social History None recorded. Functional Status None recorded. Mental Status None recorded. Family History Nothing Reported. Medical History Condition Response GERD/Reflux Y Gynecological HistoryNo gynecological history recorded. Obstetrics History GPAL:G 0 P 0 0 0 0 Past Encounters Encounter ID Performer Location Encounter Start Date Encounter Closed Date Diagnosis/Indication Diagnosis SNOMED-CT Code Diagnosis ICD10 Code Diagnosis Note [id number] BALBIR HENDRICKSON MD [facility] [address] [address] 07/05/2024 10:26:51 07/05/2024 11:54:36 Abnormal auditory perception 95421097 H93.299 Audiologic al evaluation results: Right ear: {{Normal N ormal through 2 kHz Mild M oderate Mo derately-s evere Mary re Profoun d [facility] lly normal#}} {{hearing* hearing. sloping to a mild slopi ng to a moderate s loping to moderately severe slo ping to severe slo ping to profound f lat high frequency low frequency mid frequency cookie bite hdaley curve}} {{with* se nsorineura l hearing loss with condu ctive hearing loss with mixed hearing loss with}} {{excellen t* good fa ir poor no measurable }} word recognitio n. Left ear: {{Normal* Normal through 2 kHz Mild M oderate Mo derately-s evere Mary re Profoun d}} {{hearing* hearing. sloping to a mild slopi ng to a moderate s loping to moderately severe slo ping to severe slo ping to profound f lat high frequency low frequency mid frequency cookie bite hadley curve}} {{with* se nsorineura l hearing loss with condu ctive hearing loss with mixed hearing loss with}} {{excellen t* good fa ir poor no measurable }} word recognitio n. Tympanomet ry: Right Ear:{{Type A* Type As Type Ad Type C Type C, shallow & rounded Ty pe B Type B with large volume Cou ld not maintain a hermetic seal}} Left Ear:{{Type A Type As* Type Ad Type C Type C, shallow & rounded Ty pe B Type B with large volume Cou ld not maintain a hermetic seal}} Health Concerns Section Related Observation LastModified by Organization Detai ls LastModified Time None Recorded Concern Status LastModified by Organization Details LastModified Time None Recorded Payers Encounter Date Sequence Insurance Name Policy Number Policy Melvin Covered Member ID Melvin Member ID Guarantor Name 07/05/2024 1 [facility] Snapt COUNTS INCLUDE [id number] BEDS AT [facility] Karen Og [id number] Karen Og Notes Date Note Type [...] remedies for hearing loss. BALBIR HENDRICKSON MD [address] [place] [address], [id number], [facility] - [facility] 07/05/2024 11:53:35 OBGyn Episode No OBEpisode recorded.
== END 2024-08-01 12:31 | disposition home or self-care (01) ==
LOC: HO.US 12:30
PROVIDERS: PCP Student in an Organized Health Care Education/Training Program; Visit Provider Obstetrics & Gynecology
DX: D25.9 Leiomyoma of uterus, unspecified (principal)
CPT/HCPCS: 76830; 76856

== ENCOUNTER → 2024-08-01 12:33 | Outpatient (BNV) | payer OTHER, SELFPAY | PROVIDERS: PCP Student in an Organized Health Care Education/Training Program; Visit Provider Radiology Diagnostic Radiology | DX: D25.9 Leiomyoma of uterus, unspecified (principal) | CPT/HCPCS: 76830; 76856 ==

== ENCOUNTER → 2024-08-07 14:41 | Outpatient (BNV) | payer OTHER, SELFPAY | PROVIDERS: PCP Student in an Organized Health Care Education/Training Program; Visit Provider Radiology Diagnostic Radiology | DX: S83.242A Other tear of medial meniscus, current injury, left knee, initial encounter (principal) | CPT/HCPCS: 73721 ==

== ENCOUNTER 2024-08-07 14:50 | Outpatient (REF) | payer OTHER, SELFPAY ==
--- NOTE | ~2024-08-07 | MR_ITS ---
EXAMINATION: MRI LEFT KNEE WITHOUT CONTRAST HISTORY: S83.242A - Other tear of medial meniscus, current injury, left knee, ini... COMPARISON: Correlation is made with plain films of the left knee dated 07/05/2024. TECHNIQUE: Coronal T1 and fat-suppressed proton density, sagittal proton density and fat-suppressed proton density, and axial fat suppressed T2 weighted MR images of the left knee were obtained. FINDINGS: There is mild bone marrow edema involving the medial aspect of the proximal tibial metaphysis, suggestive of a bone contusion. There is a subcentimeter cyst in the anterior aspect of the proximal tibia. Bone marrow signal intensity is otherwise normal. There is no significant suprapatellar joint effusion. There is no Curtis's cyst. The anterior and posterior cruciate ligaments and medial and lateral collateral ligaments are intact. The medial and lateral menisci are intact. The patellar and quadriceps tendons and patellar retinacula are unremarkable in appearance. The popliteus tendon is intact. There is moderate osteoarthritis of the patellofemoral compartment with cartilage loss and subchondral marrow changes. There is mild degenerative change of the medial compartment with cartilage loss. MR/MR knee LT wo con IMPRESSION: 1. Findings consistent with a mild bone contusion involving the medial aspect of the proximal tibial metaphysis. 2. Moderate osteoarthritis of the patellofemoral compartment and mild osteoarthritis of the medial compartment. 3. No evidence of a meniscal tear. Electronically signed by: Gucci Novak MD 08/09/2024 10:53 AM EST
== END 2024-08-07 14:51 | disposition home or self-care (01) ==
LOC: HO.MRI 14:50
PROVIDERS: PCP Student in an Organized Health Care Education/Training Program; Visit Provider Orthopaedic Surgery
DX: S83.242A Other tear of medial meniscus, current injury, left knee, initial encounter (principal)
CPT/HCPCS: 73721

== ENCOUNTER 2024-08-29 15:12 | Outpatient (REF) | payer OTHER, SELFPAY ==
--- OUTSIDE RECORDS SUMMARY | 2024-08-29 17:17 | XMS_ITS | Encounter Summary ---
Author Organization [employer] Address [address] [facility] [address] [place] [address] Care Team Providers Care Poly Packer And Heat Sealer Name Role Phone Tammi Burgess MD Primary Care Pro vider Reason for Visit * Reason Comments Med Refill Encounter Details Date Type Department Care Team ([facility] st Contact Info) Description 08/11/2024 Refill [facility] [address] [place] [address] Tammi Burgess MD [address] [place] [address] Social History Tobacco Use Types Packs/Day Years Used Date Smoking Tobacco: Never Passive Smoke Exposure: Never Smokeless Tobacco: Never Alcohol Use Standard Drinks/Week Comments Yes 2 (1 standard drink = 0.6 oz pur e alcohol) Socially Depression Answer Date Recorded Patient Health Questionnaire-9 Score 5 10/20/2023 Patient Health Questionnaire-9 Score 5 10/20/2023 Last PHQ-9: Questionnaire Data Not on file 0 10/20/2023 Housing Stability Answer Date Recorded What is your housing situation today? I have robert sears 07/23/[address] you li ve. Do you have problems with any of the following? None of the above 07/23/2023 Food Insecurity Answer Date Recorded Within the past 12 months, y ou worried that your food would run out before you got money to buy more: Never True 07/23/2023 Within the past 12 months,th e food you bought just didn't last and you didn't have enough money to get more: Never True Transportation Answer Date Recorded In the past 12 months, has l ack of transportation kept you from medical appts, meetings, work or from getting things needed for daily living? No 07/23/2023 Utilities Answer Date Recorded In the past 12 months, has t he electric, gas, oil or water company threatened to shut off services in your home? No 07/23/2023 Depression Answer Date Recorded Patient Health Questionnaire-2 Score 0 10/20/2023 Comments Unknown Sex and Gender Information Value Date Recorded Sex Assigned at Female 05/26/2022 10:16 AM EDT Legal Sex Female 10:16 AM EDT Gender Identity Female 05/26/2022 10:16 AM EDT Sexual Orientation Straight 05/26/2022 10 :16 AM EDT documented as of this encounter Plan of Treatment Upcoming Encounters Date Type Department Care Team (Late st Contact Info) Description 12/21/2024 3:00 PM EDT Office Visit [facility] ADULT DENTAL [address] [place] [address] Bozena Rader [address] [place] [address] documented as of this encounter Visit Diagnoses Not on filedocumented in this encounter Additional Health Concerns Assessment Noted Time PHQ-9 Depression Total Score: 5 10/20/19 24 10:39 AM EDT documented as of this encounter Care Teams Poly Packer And Heat Sealer Relationship Specialty Start Date End Date Tammi Burgess MD [address] [place] [address] PCP - General Internal Medicine 04/13/23 documented as of this encounter
--- OUTSIDE RECORDS SUMMARY | 2024-08-29 17:17 | XMS_ITS | Encounter Summary ---
Author Organization [employer] Address [address] [place] [address] [address] [place] [address] Care Team Providers Care Facilities Director Name Role Phone Tammi Burgess MD Primary Care Pro vider Reason for Visit * Reason Onset Date Comments Nurse Triage 07/16/2023 Encounter Details Date Type Department Care Team ([facility] st Contact Info) Description 07/16/2023 Telephone [facility] MED[facility]INE [address] [place] [address] Tammi Burgess MD [address] [place] [address] Nurse Triage Social History Tobacco Use Types Packs/Day Years Used Date Smoking Tobacco: Never Passive Smoke Exposure: Never Smokeless Tobacco: Never Alcohol Use Standard Drinks/Week Comments Yes 2 (1 standard drink = 0.6 oz pur e alcohol) Socially Comments Unknown Sex and Gender Information Value Date Recorded Sex Assigned at Female 05/26/2022 10:16 AM EDT Legal Sex Female 10:16 AM EDT Gender Identity Female 05/26/2022 10:16 AM EDT Sexual Orientation Straight 05/26/2022 10 :16 AM EDT documented as of this encounter Miscellaneous Notes * Telephone Encounter - Ariela Walker MD - 07/21/2023 9:29 PM EST Xray reviewed. Xray shows arthritis and large effusion.Pt is a good candidate for knee injection * Telephone Encounter - Leyla Vickers RN - 07/16/2023 4:32 PM EST Triage call with [facility] [place] [id number] Pt requests for Pt to speak for Pt. Pt has acute right knee pain. Pt has been seen in [facility] 07/09/23. Pt was prescribed tylenol 500mg, brace, voltaren gel and xrays. Xrays have been done. Pt isasking what xray results are science writer advised that there is evidence of osteoarthritis, Pt has been waiting for call back regarding injection to either back or knee and what else to be done at this time. Pt continues to have severe right knee pain and has to go to work or Pt will be fired . Offered apt 07/18/23 with PCP but, declined due to work schedule. Pt is given apt 07/23/[address] Prieto 1115am. Pt is given home care advice and agrees with this disposition. Pt will call if any further need or question. Advised Pt this information will be sent to ordering Dr and PCP for nursing team follow up. Pt agrees with this plan. Protocol Used: Knee Pain (Adult) Protocol-Based Disposition: See in Office or Video Visit within 2 Weeks Video visit not offered Positive Triage Question: * Knee pain is a chronic symptom (recurrent or ongoing AND lasting > 4 weeks) * All higher-acuity triage questions were negative Care Advice Discussed: * Reassurance and Education - Knee Pain * Pain Medicines * Pain Medicines - Extra Notes and Warnings * Reasons To Call Back - Moderate pain (e.g., limping) lasts more than 3 days - Mild pain lasts more than 7 days - You become worse * Use a Cold Pack for Pain * Use Heat After 48 Hours for Pain * Telephone Encounter - Vin Michael - 07/16/2023 3:47 PM EST Symptom: Knee Pain - Not From Injury Outcome: Schedule an urgent appointment (within 1 hour) or talk to a nurse or provider soon Reason: Severe pain now documented in this encounter Plan of Treatment Upcoming Encounters Date Type Department Care Team (Late st Contact Info) Description 12/21/2024 3:00 PM EDT Office Visit [facility] ADULT DENTAL [address] [place], [place] [phone] Bozena Rader [address] [place], [place] [phone] documented as of this encounter Visit Diagnoses Not on filedocumented in this encounter Care Teams Facilities Director Relationship Specialty Start Date End Date Tammi Burgess MD [address] [place] [address] PCP - General Internal Medicine 04/13/23 documented as of this encounter
--- OUTSIDE RECORDS SUMMARY | 2024-08-29 17:17 | XMS_ITS | Encounter Summary ---
Author Organization [employer] Address [address] [facility] [address] [place] [address] Care Team Providers Care Truck Driver Flatbed Name Role Phone Tammi Burgess MD Primary Care Pro vider Encounter Details Date Type Department Care Team (Late st Contact Info) Description 08/06/2023 Orders Only [facility] MED[facility] [address] [place], [place] [phone] Judy Prieto MD [address] [place], [place] [phone] Acute pain of right knee (Primary Dx); Effusion of right knee; Dislocation of right knee with medial meniscus tear, initial encounter Social History Tobacco Use Types Packs/Day Years Used Date Smoking Tobacco: Never Passive Smoke Exposure: Never Smokeless Tobacco: Never Alcohol Use Standard Drinks/Week Comments Yes 2 (1 standard drink = 0.6 oz pur e alcohol) Socially Depression Answer Date Recorded Patient Health Questionnaire-9 Score 0 07/23/2023 Patient Health Questionnaire-9 Score 0 07/23/2023 Last PHQ-9: Questionnaire Data Not on file 1 09/23/2022 Housing Stability Answer Date Recorded What is [...] Date Recorded Patient Health Questionnaire-2 Score 0 07/23/2023 Comments Unknown Sex and Gender Information Value [...] Description 12/21/2024 3:00 PM EDT Office Visit [facility] ADULT DENTAL [address] [place] [address] Prasanth, Bozena [address] [place] [address] documented as of this encounter Visit Diagnoses Diagnosis Acute pain of right knee- Primary Effusion of right knee Dislocation of right knee with medial meniscus tear, initial encounter documented in this encounter Additional Health Concerns Assessment Noted Time PHQ-9 Depression Total Score: 0 07/23/20 23 11:15 AM EST documented as of this encounter Care Teams Truck Driver Flatbed Relationship Specialty Start Date End Date Tammi Burgess MD [address] [place] [id number] PCP - General Internal Medicine 04/13/23 documented as of this encounter
--- OUTSIDE RECORDS SUMMARY | 2024-08-29 17:17 | XMS_ITS | Clinical Summary ---
Author Organization [employer] Address [address] [place] [address] [address] [place] [address] Care Team Providers Care Kettle Tender Name Role Phone Tammi Burgess MD Primary Care Pro vider Allergies Active Allergy Reactions Criticality Noted Date Comments Aspirin Itching 10/06/2022 Tolerated NSAIDS w no problem Medications Diclofenac Sodium 1 % gelIndications:Lo w back pain associated with a spinal disorder other than radiculopathy or spinal stenosis Apply to the affected area QID prn 50 g 1 05/21/20 23 Active triamcinolone (Kenalog) 0.1 % creamIndications: Rash of foot Apply topically if needed in the morning and at bedtime (pain and swelling). 30 g 07/13/20 23 Active divalproex (Depakote) 500 MG EC tablet TAKE 1 TABLET BY MOUTH EVERY MORNING AND TAKE 2 TABLETS BY MOUTH EVERY EVENING 90 tablet 1 09/30/19 24 Active Acetaminophen Extra Strength 500 MG tablet TAKE 1 TABLET BY MOUTH EVERY 6 HOURS NEEDED FOR MILD PAIN 30 tablet 11/13/19 24 Active gabapentin (Neurontin) 300 MG capsuleIndication s:Fibromyositis Take 1 capsule (300 mg) by mouth 3 times daily. 90 capsule 11 11/13/19 24 025 Active famotidine (Pepcid) 20 MG tablet Take 1 tablet (20 mg) by mouth 2 times daily. 180 tablet 02/17/20 24 Active clonazePAM (KlonoPIN) 0.5 MG tablet Take 0.5 mg by mouth at bedtime. 05/16/20 24 Active dicyclomine (Bentyl) 10 MG capsule TAKE 1 CAPSULE BY MOUTH THREE TIMES DAILY 60 capsule 07/05/20 24 Active lidocaine (Lidoderm) 5 % patch APPLY 1 PATCH TOPICALLY TO SKIN, LEAVE ON FOR 12 HOURS AND OFF FOR 12 HOURS DIRECTED 30 patch 2 07/13/20 24 Active Semaglutide-Weigh t Management (Wegovy) 1 MG/0.5ML solution auto-injector INJECT ONE PEN (=1 MG) SUBCUTANEOUSLY ONCE A WEEK 2 mL 07/25/20 24 Active Tirzepatide-Weigh t Management (Zepbound) 2.5 MG/0.5ML solution auto-injectorIndi cations:Obesity Inject 0.5 mL (2.5 mg) under the skin 1 (one) time per week. Start 5.5 mg weekly x 4 weeks, then increased to 5 mg x 4 weeks, then increase to 7.5 mg weekly 2 mL 08/04/19 25 025 Active rifAMPin (Rifadin) 300 MG capsule Take 2 capsules (600 mg) by mouth Once per day. 120 capsule 06/22/20 24 025 Active Problems Problem Noted Date Diagnosed Date LTBI (latent tuberculosis infection) 03/22/2024 Prediabetes 12/16/2023 Hyperlipidemia 12/16/2023 Ear pain 12/16/2023 Epigastric pain 12/16/2023 Human leukocyte antigen B27 spondyloarthropathy 12/16/2023 Knee pain 10/20/2023 Periodontal disease 03/12/2023 Dental calculus 03/12/2023 Localized gingival recession 03/12/2023 Health care maintenance 02/05/2023 Overview (04/13/2023): Immunizations: Due Tdap, Shingrix, Hep B repeat vaccine. Last Tdap 09/10/2010 Will task team to schedule for Hep B vaccine Dose #1 Pt will go downstairs to pharmacy for Shingrix vaccine HIV: Nonreactive 02/22/22 Hep C: Nonreactive 02/22/22 Hepatitis B: Hep B surface antibodies were non reactive 02/05/23. Recommend Booster dose series Pap Smear: 08/15/21 NILM, HPV neg. Repeat 5 years 2026 Mammogram: 10/01/21 BIRADS 1. Task [place] to check for Mammo 2022 BMD: >age 65; not due Colonoscopy: 05/28/22 2. Total of 2 polyps removed from cecum (retrieved) and transverse colon (not retrieved). 3. Internal hemorrhoids 4. Diverticulosis Repeat 7-10 years Lung cancer: Never smoker Eye: 02/2023 WNL at [facility] Dental: up to date Hernia of abdominal wall 10/06/2022 Migraine 12/24/2021 Uterine leiomyoma 10/22/2021 Allergic rhinitis 11/29/2014 Fibromyositis 06/13/2014 Overview (04/13/2023): Never had xrays done. Back pain resolved after a few days. Gabapentin improves pain, taking PRN. No appt with Pain Medicine. Last xrays of thoracic and lumbar spine 07/24/2014 showed 1. Left-sided C7 cervical rib. 2. No significant findings within the thoracic spine. 3. Transitional lumbosacral anatomy (Castellvi type 2a) - possibly a source of pain. MRI on 04/08/23 showed IMPRESSION: 1. There is a grade 1 anterolisthesis of L5 on S1. There is partial sacralization of L5 on the left with pseudoarticulation between L5 and S1. This should be correlated with plain films before any intervention is undertaken. 2. At L4-L5 there are severe facet arthropathic changes. There is a posterior disc protrusion without mass effect on the thecal sac and there is no central stenosis. There is mild right foraminal narrowing. 3. At L3-L4 there are moderate facet arthropathic changes. There is a posterior disc protrusion without mass effect on the thecal sac and there is no central stenosis. The neural foramina are patent. 4. There are no acute fractures or subluxations. There are sequelae of prior cholecystectomy. Assessment & Plan (04/13/2023 8:30 PM EDT): Defer xrays d/t recent MRI Reviewed MRI with pt. C/w arthritic pain F/u with pain medicine Emphasized importance to take Cymbalta daily for most beneficial results Continue Gabapentin 300 mg TID PRN Assessment & Plan (02/05/2023 7:07 PM EDT): Continue gabapentin 300 mg 1 tab TID PRN Defer xrays since pain has improved Continue exercise F/u 2 months or sooner PRN Mixed anxiety and depressive disorder 08/18/2013 Backache 03/16/2013 Seizure 02/16/2013 Overview (04/29/2023): Neurology appt 06/04/22 No seizures for about 2 months. Neurology appt upcoming 12/03/22 Depakote 500mg 1 capsule AM, 2 capsules PM Depakote lab level WNL Has had multiple seizures, none in the last month. Emphasized no driving until 6 months seizure free Assessment & Plan (02/05/2023 4:29 PM EDT): Next appt Neuro 02/25/23 No seizure activity in about 6 months Seek ED care if seizures occur again F/u 3 months or sooner PRN with new PCP Resolved Problems Problem Noted Date Diagnosed Date Resolved Date Obesity 10/20/2023 06/22/2024 Encounters Date Type Department Care Team Description 08/11/2024 Refill [facility] [address] [facility] [place] [address] Tammi Burgess MD 07/26/2024 Telephone [facility] [address] [facility] [place] [address] Tammi Burgess MD Prior Authorization (Wegovy to Zepbound) 07/25/2024 Refill [facility] [address] [place] [address] Tammi Burgess MD 07/18/2024 Orders Only [facility] [address] [facility] [place] [address] Chata Guillen MD 07/13/2024 Refill [facility] [address] [facility] [place] [address] Tammi Burgess MD 07/03/2024 Refill [facility] [address] [facility] [place] [address] Tammi Burgess MD 06/22/2024 10:00 AM EST Office Visit [facility] [address] [facility] [place] [address] Tammi Burgess MD Seizure (CMS/HCC) (Primary Dx); Prediabetes; Fibromyositis; Human leukocyte antigen B27 spondyloarthropathy; Knee pain, unspecified chronicity, unspecified laterality; Health care maintenance; Hyperlipidemia, unspecified hyperlipidemia type; LTBI (latent tuberculosis infection); Mixed anxiety and depressive disorder 06/22/2024 Telephone [facility] [address] [place] [phone] Tammi Burgess MD 06/22/2024 Travel 06/17/2024 3:00 PM EST Office Visit [facility] [address] [place] [address] Bozena Rader Localized gingival recession (Primary Dx); Missing teeth, acquired; Dental plaque 06/14/2024 Telephone [facility] [address] [place] [phone] Faviola Edmondson MA chart prep 06/08/2024 Telephone [facility] [address] [place] [address] [phone] Tammi Burgess MD 06/07/2024 10:40 AM EST Office Visit [facility] [address] [place] [address] Kira Eubanks MD Acute pain of left knee (Primary Dx) from Last 3 Months Immunizations Name Administration Dates Next Due Hep B, adult 11/02/2023,06/08/2023,04/30/2023 Influenza injectable quadriv alent preservative free 07/28/2018 MMR 05/23/2006 Tdap 10/20/2023,09/10/2010 Zoster, Recombinant 06/15/2023, 3,04/13/2023(Deferr ed: No longer needed) Family History Medical History Relation Name Comments HTN Father Relation Name Status Comments Father Social History Tobacco Use Types Packs/Day Years Used Date Smoking Tobacco: Never Passive Smoke Exposure: Never Smokeless Tobacco: Never Tobacco Cessation:Counseling Given: Not Answered Alcohol Use Standard Drinks/Week Comments Yes 2 [...] Orientation Straight 05/26/2022 10 :16 AM EDT Last Filed Vital Signs Vital Sign Reading Time Taken Comments Blood Pressure 109/69 06/22/2024 10:08 AM EST Pulse 77 06/22/2024 10:08 AM EST Temperature 36.3 ??C (97.3 ??F) 06/22/2024 1 0:08 AM EST Respiratory Rate 18 06/22/2024 10:0 8 AM EST Oxygen Saturation 100% 06/22/2024 10: 08 AM EST Inhaled Oxygen Concentration - - Weight 71.6 kg (157 lb 12.8 oz) 024 10:08 AM EST Height 158.8 cm (5' 2.5 ) 03/22/2024 1:33 PM EDT Body Mass Index 28.4 03/22/2024 1:33 PM EDT Plan of Treatment Upcoming Encounters Date Type Department Care Team (Late st Contact Info) Description 12/21/2024 3:00 PM EDT Office Visit [facility] [address] [place] [phone] Ole Raderaris [address] [place] [address] Health Maintenance Due Date Last Done Comments CT Colonography 1970 FIT DNA/Cologuard 1970 FIT 1970 FOBT 1970 Sigmoidoscopy 1970 Diabetes: Foot Exam 1980 Eye Exam 1980 Diabetes: Urine Protein Screening 1989 Pneumococcal Vaccine: 50+ Years (1 of 2 - PCV) 1989 COVID-19 Vaccine (3 - season) 2024 10/29/2021, 11/02/2020 Influenza Vaccine (#1) 2024 07/28/2018 Diabetes: Hemoglobin A1C 06/06/2024 024, 02/07/2023, 02/22/2022 Dental Oral Exam 09/18/2024 03/17/2024, , 07/28/2018 SDOH Screening 10/12/2024 10/13/2023 Depression Screening 10/19/2024 10/20/2023, 10/20/19 24 Lipid Panel 12/04/2024 12/05/2023, 01/24, 10/18/2022 Dental X-Ray: Bitewings 12/15/2024 12/15/19 24, 02/19/2023, 07/28/2018 Dental Prophylaxis 12/16/2024 06/17/2024, 0 12/15/2023, 03/12/2023, Additional history exists Alcohol/Substance Use Screening 06/22/2025 06/22/2024 Tobacco Screening 06/22/2025 06/22/2024 Cervical Cancer Screening 01/11/2026 Pap Smear 01/11/2026 01/11/2021 Dental X-Ray: Full Mouth 02/20/2026 02/19/2023, 08/2018 Mammogram 02/25/2026 02/26/2024, 11/02/2018 HPV/Cotest 08/15/2026 08/15/2021, 07/28, 01/11/2021, Additional history exists Colonoscopy 05/28/2029 05/28/2022 Colorectal Cancer Screening 05/28/2029 DTaP/Tdap/Td Vaccines (3 - Td or Tdap) 10/19/2033 10/20/2023, 09/10/2010 RSV Patients and Patients Aged 60 years or older (1 - 1-dose 75+ series) 2045 Zoster Vaccines Completed 06/15/2023, 04/13/2023 Hepatitis B Vaccines Completed 11/02/2023, 06/08/2023, 04/30/2023 HIV Screening Completed 12/05/2023, 01/26, 02/22/2022 Hepatitis C Screening Completed 03/08/2024 , 12/05/2023, 02/07/2023, Additional history exists HIB Vaccines Aged Out No longer eligi ble based on patient's age to complete this topic HPV Vaccines Aged Out No longer eligi ble based on patient's age to complete this topic Hepatitis A Vaccines Aged Out No long er eligible based on patient's age to complete this topic IPV Vaccines Aged Out No longer eligi ble based on patient's age to complete this topic Meningococcal Vaccine Aged Out No teja farhana eligible based on patient's age to complete this topic RSV under 20 months Aged Out No longe r eligible based on patient's age to complete this topic Rotavirus Vaccines Aged Out No longer eligible based on patient's age to complete this topic Procedures Procedure Name Priority Date/Time Associated Diagnosis Comments MR KNEE WO CONTRAST LEFT Routine 08/07/2024 2:58 PM EST US PELVIS TRANSVAGINAL Routine 4:26 PM EST COMPREHENSIVE METABOLIC PANEL Routine 06/18/2024 7:54 AM EST TB lung, latent ADJUNCTIVE GENERAL SERVICES - PROFESSIONAL VISITS - CASE PRESENTATION, SUBSEQUENT TO DETAILED AND EXTENSIVE TREATMENT PLANNING Routine 06/17/2024 3:00 PM EST Localized gingival recession Missing teeth, acquired Dental plaque ORAL HYGIENE INSTRUCTIONS Routine 06/17/2024 3:00 PM EST Localized gingival recession Missing teeth, acquired Dental plaque PROPHYLAXIS - ADULT Routine 06/17/2024 3 :00 PM EST Dental plaque PERIODIC ORAL EVALUATION - ESTABLISHED PATIENT Routine 03/17/2024 3:00 PM EDT Secondary dental caries associated with failed or defective dental lutheran Full coverage crown needed for root canal-treated tooth HEPATITIS PANEL, GENERAL Routine 03/08/2024 11:43 AM EDT BI MAMMOGRAM SCREENING TOMOSYNTHESIS BILATERAL Routine 02/26/2024 9:15 AM EDT BITEWINGS - 4 RADIOGRAPHIC IMAGES Routine 12/15/2023 3:00 PM EDT Dental calculus Localized gingival recession HIV 1/2 ANTIGEN/ANTIBODY, FOURTH GENERATION W/RFL Routine 12/05/2023 7:46 AM EDT Annual physical exam HEMOGLOBIN A1C Routine 12/05/2023 7:46 AM EDT Annual physical exam LIPID PANEL, STANDARD Routine 12/05/2023 7:46 AM EDT Annual physical exam DIAGNOSTIC - DIAGNOSTIC IMAGING - INTRAORAL - COMPREHENSIVE SERIES OF RADIOGRAPHIC IMAGES Routine 02/19/2023 2:30 PM EDT Dental caries HM COLONOSCOPY Routine 05/28/2022 1:55 PM EDT ZZZ HISTORICAL HPV E6/E7 RFLX JACOB 16 18/45 Routine 08/15/2021 1:40 PM EST THINPREP PAP Routine 01/11/2021 11:51 AM EDT from Last 3 Months or Most Recently Relevant to Health Maintenance Results * MR Knee w/o Contrast Left (08/07/2024 2:58 PM EST) Anatomical Region Laterality Modality Magnetic Resonan ce 08/07/2024 2:58 PM EST Narrative 08/09/2024 10:56 AM EST ? [facility] ?[address] ?[place] [address] ? Magnetic Resonance Report ? Signed ? Patient: Og,Karen M ?MR#: [id number] ?? 4 ? : 1970 ?Acct:[id number] ? Age/Sex: 54 / F ?ADM Date: 08/07/25 ? Loc: HO.MRI ? Attending Dr: Keyon Bowles MD ? Ordering Physician: Keyon Bowles MD ?? Date of Service: 08/07/24 ?? Procedure(s): MR knee LT wo con ?? Accession Number(s): [id number] ? cc: Tammi Burgess MD; Keyon Bowles MD ? EXAMINATION: MRI LEFT KNEE WITHOUT CONTRAST ? HISTORY: S83.242A - Other tear of medial meniscus, current injury, left ?? knee, ini... ? COMPARISON: Correlation is made with plain films of the left knee dated ?? 07/05/2024. ? TECHNIQUE: ??Coronal T1 and fat-suppressed proton density, sagittal ?? proton density and fat-suppressed proton density, and axial fat ?? suppressed T2 weighted MR images of the left knee were obtained. ? FINDINGS: ?? There is mild bone marrow edema involving the medial aspect of the ?? proximal tibial metaphysis, suggestive of a bone contusion. There is a ?? subcentimeter cyst in the anterior aspect of the proximal tibia. Bone ?? marrow signal intensity is otherwise normal. There is no significant ?? suprapatellar joint effusion. There is no Curtis's cyst. ? The anterior and posterior cruciate ligaments and medial and lateral ?? collateral ligaments are intact. The medial and lateral menisci are ?? intact. ? The patellar and quadriceps tendons and patellar retinacula are ?? unremarkable in appearance. The popliteus tendon is intact. There is ?? moderate osteoarthritis of the patellofemoral compartment with ?? cartilage loss and subchondral marrow changes. There is mild ?? degenerative change of the medial compartment with cartilage loss. ? MR/MR knee LT wo con ?? IMPRESSION: ? 1. Findings consistent with a mild bone contusion involving the medial ?? aspect of the proximal tibial metaphysis. ? 2. Moderate osteoarthritis of the patellofemoral compartment and mild ?? osteoarthritis of the medial compartment. ? 3. No evidence of a meniscal tear. ? Electronically signed by: ??Gucci Novak MD ??08/09/2024 10:53 AM EST ?? RP ? Dictated By: ?Gucci Novak MD ? Signed By: ?<Electronically signed by Gucci Novak MD in OV> ?08/09/241052 ? DD/ 1458 ? TD/TT: 08/07/24 1507 ? Mill Oiler: ? Procedure Note Donotuseinterpreter, Image - 08/09/2024 [place] [address] Magnetic Resonance Report Signed Patient: Karen Og MMR#: [id number] 4 : 1970Acct:[id number] Age/Sex: 54 / FADM Date: 08/07/24 Loc: HO.MRI Attending Dr: Keyon Bowles MD Ordering Physician: Keyon Bowles MD Date of Service: 08/07/24 Procedure(s): MR knee LT wo con Accession Number(s): [id number] cc: Tammi Burgess MD; Keyon Bowles MD EXAMINATION: MRI LEFT KNEE WITHOUT CONTRAST HISTORY: S83.242A - Other tear of medial meniscus, current injury, left knee, ini... COMPARISON: Correlation is made with plain films of the left knee dated 07/05/2024. TECHNIQUE: Coronal T1 and fat-suppressed proton density, sagittal proton density and fat-suppressed proton density, and axial fat suppressed T2 weighted MR images of the left knee were obtained. FINDINGS: There is mild bone marrow edema involving the medial aspect of the proximal tibial metaphysis, suggestive of a bone contusion. There is a subcentimeter cyst in the anterior aspect of the proximal tibia. Bone marrow signal intensity is otherwise normal. There is no significant suprapatellar joint effusion. There is no Curtis's cyst. The anterior and posterior cruciate ligaments and medial and lateral collateral ligaments are intact. The medial and lateral menisci are intact. The patellar and quadriceps tendons and patellar retinacula are unremarkable in appearance. The popliteus tendon is intact. There is moderate osteoarthritis of the patellofemoral compartment with cartilage loss and subchondral marrow changes. There is mild degenerative change of the medial compartment with cartilage loss. MR/MR knee LT wo con IMPRESSION: 1. Findings consistent with a mild bone contusion involving the medial aspect of the proximal tibial metaphysis. 2. Moderate osteoarthritis of the patellofemoral compartment and mild osteoarthritis of the medial compartment. 3. No evidence of a meniscal tear. Electronically signed by: Gucci Novak MD 08/09/2024 10:53 AM EST RP Dictated By: Gucci Novak MD Signed By: <Electronically signed by Gucci Novak MD in OV> 08/09/24 1053 DD/ 1458 TD/TT: 08/07/24 1507 Mill Oiler: [facility] External Provider IMG MRI PROCEDURES Final Result * US Pelvis Transvaginal (08/02/2024 4:26 PM EST) Anatomical Region Laterality Modality Pelvis Ultrasound 08/02/2024 4:26 PM EST Narrative 08/02/2024 4:27 PM EST ? [facility] ?[address] ?[place] [address] ? Ultrasound Report ? Signed ? Patient: Karen Og ?MR#: [id number] ?? 4 ? : 1970 ?Acct:[id number] ? Age/Sex: 54 / F ?ADM Date: 08/01/24 ? Loc: HO.US ? Attending Dr: Juan Espinoza MD ? Ordering Physician: Juan Espinoza MD ?? Date of Service: 08/01/24 ?? Procedure(s): US pelvic and transvaginal ?? Accession Number(s): [id number] ? cc: Tammi Burgess MD; Juan Espinoza MD ? CLINICAL HISTORY: D25.9 - Leiomyoma of uterus, unspecified ? US pelvis transabdominal and transvaginal ? Comparison: US/HI/SR - US PELVIC AND TRANSVAGINAL - 09/28/23 16:55 EST ? Findings: ?? Transabdominal scanning performed for overall anatomy. Transvaginal ?? scanning performed for additional detail. ? Anteverted uterus is 8 cm length. ?? There are multiple intramural fibroids within the uterus including a 2.3 x ?? 1.8 x 1.8 cm fibroid within the anterior aspect of the fundus (previously ?? 1.9 x 1.2 x 1.7 cm), a 0.7 x 0.6 x 0.8 cm fibroid within the anterior ?? uterine body, not previously measured, a 1.2 x 0.8 x 1.0 cm fibroid within ?? the anterior uterine body (previously 1.4 x 1.1 x 1.0 cm), a 2.4 x 2.1 x ?? 2.2 cm fibroid within the posterior uterine body (previously 1.3 x 1.0 x ?? 1.0 cm), and a 2.8 x 2.2 x 2.4 cm fibroid within the posterior uterine ?? body (previously 2.8 x 2.4 x 3.0 cm). ? Endometrium 5 mm thickness. ? Right ovary 2.1 x 1.3 x 1.8 cm. ?? Left ovary not visualized secondary to overlying bowel gas. ?? Normal color Doppler of the right ovary. ? No free fluid. ? IMPRESSION: ?? 1. Multiple intramural fibroids within the uterus. ? This document has been electronically signed by: Yeni Hutchison MD on ?? 08/02/2024 16:26:08 ? Dictated By: ?Yeni Hutchison MD ? Signed By: ?<Electronically signed by Yeni Hutchison MD in OV> ? 08/02/241625 ? DD/ 25 ? TD/TT: 08/02/241625 ? Mill Oiler: ? Procedure Note Olu Banuelos - 08/02/[address] [address] Ultrasound Report Signed Patient: Karen Og MMR#: [id number] 4 : 1970Acct:[id number] Age/Sex: 54 / FADM Date: 08/01/24 Loc: HO.US Attending Dr: Juan Espinoza MD Ordering Physician: Juan Espinoza MD Date of Service: 08/01/24 Procedure(s): US pelvic and transvaginal Accession Number(s): [id number] cc: Tammi Burgess MD; Juan Espinoza MD CLINICAL HISTORY: D25.9 - Leiomyoma of uterus, unspecified US pelvis transabdominal and transvaginal Comparison: US/HI/SR - US PELVIC AND TRANSVAGINAL - 09/28/23 16:55 EST Findings: Transabdominal scanning performed for overall anatomy. Transvaginal scanning performed for additional detail. Anteverted uterus is 8 cm length. There are multiple intramural fibroids within the uterus including a 2.3 x 1.8 x 1.8 cm fibroid within the anterior aspect of the fundus (previously 1.9 x 1.2 x 1.7 cm), a 0.7 x 0.6 x 0.8 cm fibroid within the anterior uterine body, not previously measured, a 1.2 x 0.8 x 1.0 cm fibroid within the anterior uterine body (previously 1.4 x 1.1 x 1.0 cm), a 2.4 x 2.1 x 2.2 cm fibroid within the posterior uterine body (previously 1.3 x 1.0 x 1.0 cm), and a 2.8 x 2.2 x 2.4 cm fibroid within the posterior uterine body (previously 2.8 x 2.4 x 3.0 cm). Endometrium 5 mm thickness. Right ovary 2.1 x 1.3 x 1.8 cm. Left ovary not visualized secondary to overlying bowel gas. Normal color Doppler of the right ovary. No free fluid. IMPRESSION: 1. Multiple intramural fibroids within the uterus. This document has been electronically signed by: Yeni Hutchison MD on 08/02/2024 16:26:08 Dictated By: Yeni Hutchison MD Signed By: <Electronically signed by Yeni Hutchison MD in OV> 08/02/24 1626 DD/ 1626 TD/TT: 08/02/24 1626 Mill Oiler: [facility] External Provider IMG US PROCEDURES Final Result * (ABNORMAL) Comprehensive Metabolic Panel (06/18/2024 7:54 AM EST) Sodium 139 135 - 145 mmol/L [facility] Potassium 4.7 3.3 - 5.1 mmol/L [facility] Chloride 104 96 - 108 mmol/L [facility] Carbon Dioxide 29 22 - 29 mmol/L [facility] Anion Gap 11(L) 12 - 20 [facility] Urea Nitrogen (BUN) 12 9 - 16 mg/dL [facility] Creatinine, Serum 0.74 0.5 - 1.4 mg/dL [facility] Estimated Glomerular Filt Rate >60 [facility] Comment:Chronic Kidney Disea se: Estimated GFR < 60 mL/min/1.52w8Pznedg Kidney Disease: Estimated GFR < 15 mL/min/1.73m2 Glucose 89 60 - 115 mg/dL [facility] Calcium 9.2 8.4 - 10.2 mg/dL [facility] Bilirubin, Total 0.4 0.0 - 1.0 mg/dL [facility] Aspartate Amino Transferase 16 5 - 31 U/L [facility] Alanine Aminotransferase 22 0 - 31 U/L [facility] Total Protein 7.3 6.5 - 8.0 g/dL [facility] Albumin Level 3.6 3.5 - 5.0 g/dL [facility] Alkaline Phosphatase 63 39 - 117 U/L [facility] Blood Venous blood specimen / Unknown 06/18/2024 7:54 AM EST 06/18/2024 7:54 AM EST us Tammi Sorenson MD LAB BLOOD ORDERAB LES Final Result [facility] [address] [place] [phone] * Hepatitis Panel, General (03/08/2024 11:43 AM EDT) Hepatitis A IgM Nonreactive Nonreactive [facility] Comment:IgM antibodies to LEMUS V not detected; does not exclude earlyacute or recovered HAV infection. ~Hepatitis B Surface Antibody REACTIVE Nonreactive [facility] Comment:REACTIVE: > 11.99 mI U/mL Hepatitis B Core Antibody Nonreactive Nonreactive [facility] Hepatitis C Antibody Nonreactive Nonreactive [facility] [facility] Comment:Antibodies to HCV no t detected; does not exclude early acuteHCV infection. Hepatitis B Surface Ag Negative Negative [facility] 03/08/2024 11:4 3 AM EDT 03/08/2024 11:43 AM EDT us Generic External Data Provider LAB BLOOD ORDERAB LES Final Result [facility] [address] [place] [address] [phone] * BI Mammogram Screening Tomosynthesis Bilateral (02/26/2024 9:15 AM EDT) Anatomical Region Laterality Modality Breast Bilateral Mammography 02/26/2024 9:15 AM EDT Narrative 03/28/2024 11:07 PM EDT ? [facility] ?[address] ?[place] [address] ? Mammography Report ? Signed ? Patient: Carson Ogna M ?MR#: [id number] ?? 4 ? : 1970 ?Acct:[id number] ? Age/Sex: 53 / F ?ADM Date: 02/26/24 ? Loc: HO.US ? Attending Dr: Tammi Sorenson MD ? Ordering Physician: Tammi Burgess MD ?Re ?? sults: 1Negative ? Date of Service: 02/26/24 ?Follow Up: 1 Year From Orig ?? inal Mammogram ? Procedure(s): MM tomosynthesis screening BI ?? Accession Number(s): [id number] ? cc: Tammi Burgess MD ? EXAMINATION: ?? MM SCREENING DIGITAL BREAST TOMOSYNTHESIS, BILATERAL ? CLINICAL INFORMATION: ? Screening. Asymptomatic. ? COMPARISON: ?? Mammography: This study is compared with prior exams dating back to ? 2019. ? TECHNIQUE: ?? Digital breast tomosynthesis is performed in both the craniocaudal and ?? mediolateral oblique views along with computer-aided detection (CAD). ? Synthesized 2D images are generated from the tomosynthesis. ? FINDINGS: ?? There are scattered areas of fibroglandular density (ACR BI-RADS breast ?? composition Category b). ? There are no significant masses, abnormal calcifications, or other ?? abnormalities. ? MM/MM tomosynthesis screening BI ?? IMPRESSION: ?? No mammographic evidence of malignancy. ? ASSESSMENT: ? BI-RADS BI-RADS 1 - Negative ? RECOMMENDATION: ?? Routine annual mammography screening. ? 1 year F/U ? This examination should not preclude the clinical evaluation of a ?? suspicious palpable abnormality. ? This patient's information was entered into a reminder system with a ?? target due date for their next mammogram. ? Electronically signed by: ??Karen Herrera MD ??03/28/2024 11:04 PM EDT RP ? Dictated By: ?Karen Herrera MD ? Signed By: ?<Electronically signed by Karen Herrera MD in OV> ? 03/28/242303 ? DD/ 0915 ? TD/TT: 02/26/24924 ? Mill Oiler: ? Procedure Note Olu Banuelos - 03/28/2024 [id number] [place] [address] Mammography Report Signed Patient: Karen Og MMR#: [id number] 4 : 1970Acct:[id number] Age/Sex: 53 / FADM Date: 02/26/24 Loc: HO.US Attending Dr: Tammi Sorenson MD Ordering Physician: Tammi Burgess sults: 1Negative Date of Service: 02/26/24Follow Up: 1 Year From Orig inal Mammogram Procedure(s): MM tomosynthesis screening BI Accession Number(s): [id number] cc: Tmami Burgess MD EXAMINATION: MM SCREENING DIGITAL BREAST TOMOSYNTHESIS, BILATERAL CLINICAL INFORMATION: Screening. Asymptomatic. COMPARISON: Mammography: This study is compared with prior exams dating back to 2019. TECHNIQUE: Digital breast tomosynthesis is performed in both the craniocaudal and mediolateral oblique views along with computer-aided detection (CAD). Synthesized 2D images are generated from the tomosynthesis. FINDINGS: There are scattered areas of fibroglandular density (ACR BI-RADS breast composition Category b). There are no significant masses, abnormal calcifications, or other abnormalities. MM/MM tomosynthesis screening BI IMPRESSION: No mammographic evidence of malignancy. ASSESSMENT: BI-RADS BI-RADS 1 - Negative RECOMMENDATION: Routine annual mammography screening. 1 year F/U This examination should not preclude the clinical evaluation of a suspicious palpable abnormality. This patient's information was entered into a reminder system with a target due date for their next mammogram. Electronically signed by: Karen Herrera MD 03/28/2024 11:04 PM EDT Dictated By: Karen Herrera MD Signed By: <Electronically signed by Karen Herrera MD in OV> 03/28/244 DD/ 4 TD/TT: 02/26/24924 Mill Oiler: Tammi Sorenson MD IMG BI PROCEDURES Final Result * HIV-1/2 Antigen and Antibodies, Fourth Generation, with Reflexes (12/05/2023 7:46 AM EDT) HIV AB/AG Nonreactive Nonreactive [facility] Comment:HIV-1 p24 Ag and/or HIV-1/HIV-2 Ab not detected.A test result that is nonreactive does not exclude thepossibility of exposure to or infection with HIV-1 and/orHIV-2. Nonreactive results in this assay for individualswith prior exposure to HIV-1 and/or HIV-2 may be due toantigen and antibody levels that are below the limit ofdetection of this assay.The [employer] HIV Ag/Ab Combo assay result andsupplemental assay results should be interpreted inconjunction with the patient's clinical presentation,history and other laboratory results. If the results areinconsistent with clinical evidence, additional testing issuggested to confirm the result. Blood Venous blood specimen / Unknown 12/05/2023 7:46 AM EDT 12/05/2023 7:46 AM EDT Tammi Sorenson MD LAB BLOOD ORDERAB LES Final Result [facility] [address] [place] [phone] * Hemoglobin A1c (12/05/2023 7:46 AM EDT) Hemoglobin A1c 5.7 <6.0 % [facility] Comment:Hemoglobin A1C Refer ence Range Adults: 4.8 - 6.0 % Non diabetic: < 6.0 % Goal: < 7.0 %Additional Action Suggested: > 8.0 %Note: Hemoglobin A1c results are invalid for patients with abnormal amounts of HbF. Blood transfusions may impact the HbA1c concentration in the patient sample. Estimated Average Glucose 117 mg/dL [facility] Comment:eAG = Estimated ave rage glucose which is %A1C expressed asaverage glucose, using the formula of the W1M-XztmgyuHcfdyhs Glucose study (ADAG), Diabetes Care, Vol.31,#8,Feb. 2007 Blood Venous blood specimen / Unknown 12/05/2023 7:46 AM EDT 12/05/2023 7:46 AM EDT Tammi Sorenson MD LAB BLOOD ORDERAB LES Final Result [facility] [address] [place] [address] [phone] * (ABNORMAL) Lipid Panel, Standard (12/05/2023 7:46 AM EDT) Triglycerides 144 <150 mg/dL [facility] Comment:Desirable Triglyceri de: less than 150 mg/dLBorderline High Triglyceride 150-199 mg/dLHigh Triglyceride: 200-499 mg/dLVery High Triglyceride: greater than or equal to 5OO mg/dL Cholesterol 200(H) <200 mg/dL [facility] Comment:Desirable Cholestero l: less than 200 mg/dLBorderline High Cholesterol: 200-239 mg/dLHigh Cholesterol: greater than 239 mg/dL LDL Cholesterol Calculated 121(H) <100 mg/dL [facility] Comment:Desirable LDL: less than 100 mg/dLNear Optimal/Above Optimal LDL: 110- 129 mg/dLBorderline High LDL: 130-159 mg/dLHigh LDL: 160-189 mg/dLVery High LDL: greater than or equal to 190 mg/dL HDL Cholesterol 51 >40 mg/dL [facility] Comment:Desirable HDL: great er than 40 mg/dL Note: This HDL assay may give artificially low results in patients with liver disease. Blood Venous blood specimen / Unknown 12/05/2023 7:46 AM EDT 12/05/2023 7:46 AM EDT us Tammi Sorenson MD LAB BLOOD ORDERAB LES Final Result [facility] [address] [place] [address] [phone] * Hm Colonoscopy (05/28/2022 1:55 PM EDT) Historical Provider HEALTH MAINTENANCE Final Result * HPV E6/E7 RFLX JACOB 16 18/45 (08/15/2021 1:40 PM EST) HPV 16 RNA [facility]NP [facility] HPV 18/45 RNA [facility] HPV E6 E7 ADD [facility]NP [facility] HPV mRNA E6/E7 rflx Not Detected Not Detected [facility] Comment: Methodology: Refinery Operator Vapor Recovery Unit-Mediated Amplification This assay detects E6/E7 viral messenger RNA (mRNA) from 14 high-risk HPV types (16,18,31,33,35,39,45,51,52,56,58,59,66,68). The analytical performance characteristics of this assay have been determined by [employer]. The modifications have not been cleared or approved by the FDA. This assay has been validated pursuant to the CLIA regulations and is used for clinical purposes. For additional information, please refer to http://education.[employer]/faq/FVR775a6 (This link if provided for information/ educational purposes only.) THIS TEST WAS PERFORMED AT: [facility] [address] [place] [address],[address] [place], [place] ??[phone] AMY BLANCAS MD 08/15/2021 1:40 PM EST us Historical Provider HISTORICAL/NON ORDERABLE LABS Final Result [facility] [address] * THINPREP PAP (01/11/2021 11:51 AM EDT) Pathologist [facility] [place] Clinical Information: None given [facility] COMMENT SEE COMMENT [facility] Comment: EXPLANATORY NOTE: ? The Pap is a screening test for cervical cancer. It is ?? not a diagnostic test and is subject to false negative ?? and false positive results. It is most reliable when a ?? satisfactory sample, regularly obtained, is submitted ?? with relevant clinical findings and history, and when ?? the Pap result is evaluated along with historic and ?? current clinical information. ?? Inventory Manager : SEE COMMENT [facility] Comment: GSG, CT(ASCP) CT screening location: [address] ??[address] Interpretation/R esult: Negative for intraepithelial lesion or malignancy. [facility] LMP: NONE GIVEN [facility] Prev. BX: NONE GIVEN [facility] Prev. PAP: NONE GIVEN [facility] SOURCE: None given [facility] Statement Of Adequacy: SEE COMMENT [facility] Comment: Satisfactory for evaluation. Endocervical/transformation zone component present. 01/11/2021 11:5 1 AM EDT us Historical Provider MD LAB PATHOLOGY ORDERABLES Final Result [facility] [address] from Last 3 Months or Most Recently Relevant to Health Maintenance Insurance [facility]SN FULL [facility] - HSN FULL (MEDICAID) Care Teams Kettle Tender Relationship Specialty Start Date End Date Tammi Burgess MD [address] [place] [address] PCP - General Internal Medicine 04/13/23
--- OUTSIDE RECORDS SUMMARY | 2024-08-29 17:17 | XMS_ITS | Encounter Summary ---
Author Organization [employer] Address [address] [place] [address] [address] [place] [address] Care Team Providers Care Sock Folder Name Role Phone Charito Lawrence Primary Care Provider +1- [phone] Tammi Burgess MD Primary Care Pro vider Encounter Details Date Type Department Care Team (Late st Contact Info) Description 03/31/2023 Abstract [facility] ADULT [facility] [address] [place] [address] Jamey Hussein, DMD [address] [place] [address] Social History Tobacco Use Types Packs/Day Years Used Date Smoking Tobacco: Never Smokeless Tobacco: Never Alcohol Use Standard [...] Description 12/21/2024 3:00 PM EDT Office Visit [facility] [address] [place] [address] Bozena Rader [address] [place] [address] documented as of this encounter Visit Diagnoses Not on filedocumented in this encounter Care Teams Sock Folder Relationship Specialty Start Date End Date Charito Lawrence FNP PCP - General Family Medicine 05/17/21 04/12/23 Tammi Burgess MD [address] [place] [address] PCP - General Internal Medicine 04/13/23 documented as of this encounter
--- OUTSIDE RECORDS SUMMARY | 2024-08-29 17:17 | XMS_ITS | Encounter Summary ---
Author Organization [employer] [facility] Address [address] [place] [address] [address], [place] [address] Care Team Providers Care Librarian Specialist Name Role Phone Charito Lawrence Primary Care Provider +1- [phone] Tammi Burgess MD Primary Care Pro vider Encounter Details Date Type Department Care Team (Latest Contact Info) Description 07/29/2018 Abstract [facility] CONVERSIONS Dental, Provider, DDS Social History Tobacco Use Types Packs/Day Years Used Date Smoking Tobacco: Never Assessed Comments Unknown Sex and Gender Information Value [...] Description 12/21/2024 3:00 PM EDT Office Visit [facility] ADULT D[facility]AL [address] [place] [address] Prasanth, Bozena [address] [place] [address] documented as of this encounter Visit Diagnoses Not on filedocumented in this encounter Care Teams Librarian Specialist Relationship Specialty Start Date End Date Charito Lawrence FNP PCP - General Family Medicine 05/17/21 04/12/23 Tammi Burgess MD [address] [place] [address] PCP - General Internal Medicine 04/13/23 documented as of this encounter
--- OUTSIDE RECORDS SUMMARY | 2024-08-29 17:17 | XMS_ITS | Encounter Summary ---
Author Organization [employer] Address [address] [facility] [address] [place] [address] Care Team Providers Care Project Development Manager Name Role Phone Tammi Burgess MD Primary Care Pro vider Encounter Details Date Type Department Care Team ([facility] st Contact Info) Description 07/18/[address] [facility] [address] [place], [place] [phone] ProviderChata MD Social History Tobacco Use Types Packs/Day Years [...] as of this encounter Miscellaneous Notes * Result Encounter Note - Martine Cornell MD - 07/18/2024 1:55 PM EST Pelvic US ordered by PLASTIC EXTRUSION OPERATOR. Patient to fu results with PLASTIC EXTRUSION OPERATOR (Dr Espinoza). documented in this encounter Plan of Treatment Upcoming Encounters Date Type Department Care Team (Late st Contact Info) Description 12/21/2024 3:00 PM EDT Office Visit [facility] ADULT D[facility] [address] [place] [address] Prasanth, Bozena [address] [place] [address] documented as of this encounter Procedures Procedure Name Priority Date/Time Associated Diagnosis Comments MR KNEE WO CONTRAST LEFT Routine 08/07/2024 2:58 PM EST US PELVIS TRANSVAGINAL Routine 08/02/2024 4:26 PM EST HM COLONOSCOPY Routine 05/28/2022 1:55 PM EDT documented in this encounter Results * MR Knee w/o Contrast Left (08/07/2024 2:58 PM EST) Anatomical Region Laterality Modality Magnetic Resonan ce 08/07/2024 2:58 PM EST Narrative 08/09/2024 10:56 AM EST ? [facility] ?[address] ?[place] [address] ? Magnetic Resonance Report ? Signed ? Patient: Og,Karen M ?MR#: [id number] ?? 4 ? : 1970 ?Acct:[id number] ? Age/Sex: 54 / F ?ADM Date: 01/12/25 ? Loc: HO.MRI ? Attending Dr: Keyon Bowles MD ? Ordering Physician: Keyon Bowles MD ?? Date of Service: 08/07/24 ?? Procedure(s): MR knee LT wo con ?? Accession Number(s): [id number] ? cc: Tammi Burgess MD; Keyon Bowles [...] DD/ 1458 ? TD/TT: 08/07/24 1507 ? Hearing Dog Trainer: ? Procedure Note Donotuseinterpreter, Image - 08/09/[address] [address] Magnetic Resonance Report Signed Patient: Karen Og [facility]#: [id number] 4 : 1970Acct:[id number] Age/Sex: 54 / FADM Date: 08/07/24 Loc: HO.MRI Attending Dr: Keyon Bowles MD Ordering Physician: Keyon Bowles MD Date of Service: 08/07/24 Procedure(s): MR knee LT wo con Accession Number(s): [id number] cc: Tammi Burgess MD; Keyon Bowles MD [...] 08/09/24 1053 DD/ 1458 TD/TT: 08/07/24 1507 Hearing Dog Trainer: [facility] External Provider IMG MRI PROCEDURES Final Result * US Pelvis Transvaginal (08/02/2024 4:26 PM EST) Anatomical Region Laterality Modality Pelvis Ultrasound 08/02/2024 4:26 PM EST Narrative 08/02/2024 4:27 PM EST ? [facility] ?[address] ?[place] [address] ? Ultrasound Report ? Signed ? Patient: Karen Og ?MR#: [id number] ?? 4 ? : 1970 ?Acct:[id number] ? Age/Sex: 54 / F ?ADM Date: 08/01/24 ? Loc: HO.US ? Attending Dr: Juan Espinoza MD ? Ordering Physician: Juan Espinoza MD ?? Date of Service: 08/01/24 ?? Procedure(s): US pelvic and transvaginal ?? Accession Number(s): [id number] ? cc: Tammi Burgess MD; Juan Espinoza MD ? CLINICAL HISTORY: D25.9 - Leiomyoma of uterus, unspecified ? US pelvis transabdominal and transvaginal ? Comparison: US/FL/SR - US PELVIC AND TRANSVAGINAL - 09/28/23 [...] by Yeni Hutchison MD in OV> ? 08/02/24 1626 ? DD/ 1626 ? TD/TT: 08/02/24 1626 ? Hearing Dog Trainer: ? Procedure Note Vin, Image - 08/02/[address] [address] Ultrasound Report Signed Patient: Karen Og [facility]#: [id number] 4 : 1970Acct:[id number] Age/Sex: 54 / FADM Date: 08/01/24 Loc: HO.US Attending Dr: Juan Espinoza MD Ordering Physician: Juan Espinoza MD Date of Service: 08/01/24 Procedure(s): US pelvic and transvaginal Accession Number(s): [id number] cc: Tammi Burgess MD; Juan Espinoza MD CLINICAL HISTORY: D25.9 - Leiomyoma of uterus, unspecified US pelvis transabdominal and transvaginal Comparison: US/FL/SR - US PELVIC AND TRANSVAGINAL - 09/28/23 [...] Hutchison MD in OV> 08/02/24 1626 DD/ 25 TD/TT: 08/02/241625 Hearing Dog Trainer: [facility] External Provider IMG US PROCEDURES Final Result * Hm Colonoscopy (05/28/2022 1:55 PM EDT) Historical Provider HEALTH MAINTENANCE Final Result documented in this encounter Visit Diagnoses Not on filedocumented in this encounter Additional Health Concerns Assessment Noted Time PHQ-9 Depression Total Score: 5 10/20/19 24 10:39 AM EDT documented as of this encounter Care Teams Project Development Manager Relationship Specialty Start Date End Date Tammi Burgess MD [address] [place] [address] PCP - General Internal Medicine 04/13/23 documented as of this encounter
--- OUTSIDE RECORDS SUMMARY | 2024-08-29 17:17 | XMS_ITS | Encounter Summary ---
Author Organization [employer] Address [address] [place] [address] [address], [place] [address] Care Team Providers Care Case Management Assistant Name Role Phone Tammi Burgess MD Primary Care Pro vider Reason for Referral * Medications - Closed Specialty Diagnoses / Procedures Referred By Contlizabeth t Referred To Contact Tammi Eldridge MD [address] [place] [address] Phone: tel: fax: Referral ID Status Reason Start Date Expiration Date Visits Re quested Visits Authorized [id number] Closed 08/04/2024 08/04/2025 1 1 Reason for Visit * Reason Onset Date Comments Med Refill 07/25/2024 Encounter Details Date Type Department Care Team ([facility] st Contact Info) Description 07/25/2024 Refill [facility] [address] [place], [place] [phone] Tammi Burgess MD [address] [place], [place] [phone] Social History Tobacco Use Types Packs/Day Years [...] as of this encounter Miscellaneous Notes * Addendum Note - Madai Hernandez RN - 08/04/2024 11:02 AM ESTAddended by: MADAI HERNANDEZ on: 08/04/2024 11:02 AM Modules accepted: Orders * Telephone Encounter - Martine Cornell MD - 07/25/2024 12:59 PM EST Refill for Wegovy was sent to pharmacy, however, please call patient and let her know that her insurance most likely wont cover Wegovy anymore but Zepbound which is a similar medication with similar side effects and mechanism of action. So , if it gets rejected, whoever is covering dr Ontiveros on thatday, will rx Zepbound instead. Also, Im not sure that insurance in fact will cover any of the GLP ag onist meds as her BMI is below 30 and one of the requirements is that the BMI is above 30. We'll fualong. * Telephone Encounter - Toshia Hess LPN - 07/25/2024 10:31 AM EST PCP off. Next dose pended please review. Last seen 06/22/24. documented in this encounter Plan of Treatment Upcoming Encounters Date Type Department Care Team (Late st Contact Info) Description 12/21/2024 3:00 PM EDT Office Visit [facility]ULT D[facility] [address] [place] [address] Prasanth Bozena [address] [place] [address] documented as of this encounter Visit Diagnoses Not on filedocumented in this encounter Additional Health Concerns Assessment Noted Time PHQ-9 Depression Total Score: 5 10/20/19 24 10:39 AM EDT documented as of this encounter Care Teams Case Management Assistant Relationship Specialty Start Date End Date Tammi Burgess MD [address] [place] [address] PCP - General Internal Medicine 04/13/23 documented as of this encounter
--- OUTSIDE RECORDS SUMMARY | 2024-08-29 17:17 | XMS_ITS | Encounter Summary ---
Author Organization [employer] Address [address] [facility] [address] [place] [address] Care Team Providers Care Lubricating Specialist Name Role Phone Tammi Burgess MD Primary Care Pro vider Reason for Visit * Reason Onset Date Comments Prior Authorization 07/26/2024 Bonnie to Ze pbound Encounter Details Date Type Department Care Team ([facility] Contact Info) Description 07/26/2024 Telephone [facility] [address] [place] [address] Tammi Burgess MD [address] [place], [place] [phone] Prior Authorization (Naelvrishi to Zepbound) Social History Tobacco Use Types Packs/Day Years [...] encounter Miscellaneous Notes * Telephone Encounter - Neris Michael - 08/08/2024 10:39 AM EST [place] initiated on Covermymeds for Zepbound . Approval/denial pending. * Telephone Encounter - Neris Michael - 07/26/2024 10:13 AM EST Per [employer] Wegovy is no longer covered and Zepbound is the preferred medication. documented in this encounter Plan of Treatment Upcoming Encounters Date Type Department Care Team (Late st Contact Info) Description 12/21/2024 3:00 PM EDT Office Visit [facility] ADULT [facility] [address] [place] [address] Ole Raderaris [address] [place] [address] documented as of this encounter Visit Diagnoses Not on filedocumented in this encounter Additional Health Concerns Assessment Noted Time PHQ-9 Depression Total Score: 5 10/20/19 24 10:39 AM EDT documented as of this encounter Care Teams Lubricating Specialist Relationship Specialty Start Date End Date Tammi Burgess MD [address] [place] [address] PCP - General Internal Medicine 04/13/23 documented as of this encounter
== END 2024-08-29 15:13 | disposition home or self-care (01) ==
LOC: HO.LNP 15:12
PROVIDERS: PCP Student in an Organized Health Care Education/Training Program; Visit Provider Obstetrics & Gynecology
DX: Z01.419 Encounter for gynecological examination (general) (routine) without abnormal findings (principal); N95.0 Postmenopausal bleeding; D25.9 Leiomyoma of uterus, unspecified
CPT/HCPCS: 58100; 88305; 99212; 99396; 99459

== ENCOUNTER 2024-09-15 15:25 | Outpatient (AMB) | payer OTHER, SELFPAY ==
--- NOTE | 2024-09-15 15:45 | A.OFFVIS_ITS ---
Intake Visit Reasons: EMB results Temperature Inspector Required: Yes Temperature Inspector Language: Cargo Station Worker Services: Temperature Inspector Present (in person) Temperature Inspector Name: Indigo SAL Congressional [place] Aide: Congressional [place] Aide Present (DORON Teran) Accompanied by: Self / Same As Patient Allergies aspirin [ASPIRIN] Allergy (Unknown, Verified 09/15/24 15:48) SWELLING, facial swelling HPI Comments Details: The patient is presenting after endometrial biopsy. The patient has no complaints, no vaginal bleeding, no feverishness chills or abdominal pain. The endometrial biopsy pathology report showed the following: Scant strips of benign atrophic endometrium, and scant benign endocervical glandular epithelium; no atypia or carcinoma. 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 Sexual orientation: Straight/Heterosexual Gender identity: Female Female Reproductive History Menstrual Age of Menarche: 10 Review of Systems Const All systems reviewed & are unremarkable except as noted in HPI and below Reports as per HPI and Reports no additional complaints GI Reports no additional complaints Reports no additional complaints Assessment & Plan Assessment & Plan (1) Postmenopausal bleeding: Comment: endo thickness 5 mm Code(s): N95.0 - Postmenopausal bleeding Category: Medical Plan: Discussed with the patient the results of the endometrial biopsy showing scant tissues of benign endometrial. Discussed with the patient the sensitivity, specificity, positive and negative predictive value, of endometrial biopsy in detecting endometrial pathology including but not limited to endometrial hyperplasia, cancer and other pathology; instructed the patient to call in case vaginal bleeding bleeding recurs, the next step will be to proceed with a diagnostic hysteroscopy/D&C for further endometrial sampling evaluation to rule out endometrial pathology. All questions answered and the patient verbalized understanding and agreed with the plan. Coding Level of Care Code Est Pt Level 3 (98448) Diagnoses Postmenopausal bleeding N95.0
--- OUTSIDE RECORDS SUMMARY | 2024-09-15 16:29 | XMS_ITS | Encounter Summary ---
Author Organization [employer] Address [address] [place] [address] Care Team Providers Care Political Research Scientist Name Role Phone Tammi Burgess MD Primary Care Pro vider Encounter Details Date Type Department Care Team (Late st Contact Info) Description 08/29/2024 Orders Only GENERIC EXTERNAL DATA DEPARTMENT Provider, Generic External Data Social History Tobacco Use Types Packs/Day Years [...] is your housing situation today? I have robertj[employer] sears 07/23/[address] you [...] t he electric, gas, oil or water [employer] threatened to shut off services in your [...] Description 12/21/2024 3:00 PM EDT Office Visit [facility] [address] [place], [place] [id number] Prasanth, Bozena [address] [place] [address] documented as of this encounter Procedures Procedure Name Priority Date/Time Associated Diagnosis Comments HEMATOXYLIN AND EOSIN STAIN Routine 08/29/2024 4:03 PM EST documented in this encounter Results * Hematoxylin and Eosin Stain (08/29/2024 4:03 PM EST) 08/29/2024 4:03 PM EST 08/30/2024 7:40 AM EST [facility] - 08/31/2024 12:42 PM EST ----- ------- Name: Karen Og ?Age/Sex: 54/F ? : 1970 Unit#: [id number] ?? Attend Dr: Juan Espinoza MD ?Re08/29/24 ?Status: DEP REF ? Location: HO.LNP ?Disch: ? ----- ------- SPEC : [id number] ?RECD: 08/30/24 ? STATUS: ??SOUT ? REQ NUM: [id number] ? MORGAN: 08/29/24-160 ? SUBM DR: Juan Espinoza MD ? ENTERED: ??08/30/24 ?SP TYPE: Surgical ? OTHR DR: Tammi Burgess MD ORDERED: ??HE Stain/2, Gross Micro L4 ? Diagnosis ?? Endometrium, biopsy: ??Scant strips of benign atrophic endometrium, and scant benign ?? endocervical glandular epithelium; no atypia or carcinoma. ?Clinical History PMB ?Microscopic Description Microscopic sections reviewed. ? Material Received ?? Endometrial biopsy ? Gross Description Received in formalin labeled ?EMB? is a 0.8 x 0.8 x 0.4 cm aggregate of predominantly red- maroon blood and fragments of congested and hemorrhagic red-maroon tissue, submitted in toto in a cassette labeled A. CEDS Copies To: ?? Tammi Burgess MD ?? [address] [facility] ?? [place] [address] ?? [phone] ?? Juan Espinoza MD ?? [facility] [place] [facility] ?? [address] ?? [place] [address] ?? [phone] ----- ------- Signed (signature on file) Katlyn Viveros 08/31/24 1242 ? ----- ------- ? END OF REPORT ? us Generic External Data Provider LAB BLOOD ORDERAB LES Final Result [facility] [address] [place] [phone] [phone] documented in this encounter Visit Diagnoses Not on filedocumented in this encounter Additional Health Concerns Assessment Noted Time PHQ-9 Depression Total Score: 5 10/20/19 24 10:39 AM EDT documented as of this encounter Care Teams Political Research Scientist Relationship Specialty Start Date End Date Tammi Burgess MD [address] [place] [phone] PCP - General Internal Medicine 04/13/23 documented as of this encounter
--- OUTSIDE RECORDS SUMMARY | 2024-09-15 16:29 | XMS_ITS | Encounter Summary ---
Author Organization [employer] Address [address] [facility] [facility] [address] [place] [address] Care Team Providers Care Machine Design Engineer Name Role Phone Tammi Burgess MD Primary Care Pro vider Reason for Visit * Reason Comments Med Refill Encounter Details Date Type Department Care Team ([facility] st Contact Info) Description 08/11/2024 Refill [facility] [address] [place] [address] Tammi Burgess MD [address] [place] [address] Social History Tobacco Use Types Packs/Day Years [...] Description 12/21/2024 3:00 PM EDT Office Visit [facility] [address] [place] [address] Bozena Rader [address] [place] [address] documented as of this encounter Visit Diagnoses Not on filedocumented in this encounter Additional Health Concerns Assessment Noted Time PHQ-9 Depression Total Score: 5 10/20/19 24 10:39 AM EDT documented as of this encounter Care Teams Machine Design Engineer Relationship Specialty Start Date End Date Tammi Burgess MD [address] [place] [address] PCP - General Internal Medicine 04/13/23 documented as of this encounter
--- OUTSIDE RECORDS SUMMARY | 2024-09-15 16:29 | XMS_ITS | Clinical Summary ---
Author Organization [employer] Address [address] [place] [address] 7t [place] [address] Care Team Providers Care Construction Technology Instructor Name Role Phone Tammi Burgess MD Primary [...] A WEEK 2 mL 07/25/20 24 Active rifAMPin (Rifadin) 300 MG capsule Take 2 capsules (600 mg) by mouth Once per day. 120 capsule 06/22/20 24 025 Tirzepatide-Weigh t Management (Zepbound) 2.5 MG/0.5ML solution auto-injectorIndi cations:Obesity Inject 0.5 mL (2.5 mg) under the skin 1 (one) time per week. Start 5.5 mg weekly x 4 weeks, then increased to 5 mg x 4 weeks, then increase to 7.5 mg weekly 2 mL 08/04/19 25 025 Active Problems Problem Noted Date Diagnosed [...] cancer: Never smoker [facility]: [facility] Dental: up to date Hernia of abdominal [...] Encounters Date Type Department Care Team Description 08/29/2024 Orders Only GENERIC EXTERNAL DATA DEPARTMENT Provider, [facility] External Data 08/11/2024 Refill [facility] MEDICINE [address] [place] [address] Tammi Burgess MD 07/26/2024 Telephone [facility] MEDICINE [address] [place] [address] Tammi Burgess MD Prior Authorization (Wegovy to Zepbound) 07/25/2024 Refill [facility] PEDS [address] [place] [address] Tammi Burgess MD 07/18/2024 Orders Only [facility] MEDICINE [address] [place] [address] Chata Guillen MD 07/13/2024 Refill [facility] MEDICINE [address] [place] [address] Tammi Burgess MD 07/03/2024 Refill [facility] MEDICINE [address] [place] [address] Tammi Burgess MD 06/22/2024 10:00 AM EST Office Visit [facility] MEDICINE [address] [place], [place] [phone] Tammi Burgess MD Seizure ([facility]) (Primary Dx); Prediabetes; Fibromyositis; Human leukocyte antigen B27 spondyloarthropathy; Knee pain, unspecified chronicity, unspecified laterality; Health care maintenance; Hyperlipidemia, unspecified hyperlipidemia type; LTBI (latent tuberculosis infection); Mixed anxiety and depressive disorder 06/22/2024 Telephone [facility] MEDICINE [address] [place], [place] [phone] Tammi Burgess MD 06/22/2024 Travel 06/17/2024 3:00 PM EST Office Visit [facility] ADULT DENTAL [address] [place], [place] [phone] Bozena Rader Localized gingival recession (Primary Dx); Missing teeth, acquired; Dental plaque from Last 3 Months Immunizations Name Administration [...] Description 12/21/2024 3:00 PM EDT Office Visit [facility] ADULT DENTAL [address] [place] [address] Bozena Rader [address] [place] [address] Health Maintenance Due Date Last Done Comments CT Colonography 1970 FIT DNA/Cologuard 1970 FIT 1970 FOBT 1970 Sigmoidoscopy 1970 Diabetes: Foot Exam 1980 Eye Exam 1980 Diabetes: Urine Protein Screening 1989 Pneumococcal Vaccine: 50+ Years (1 of 2 - PCV) 1989 Diabetes: Hemoglobin A1C 03/06/2024 024, 02/07/2023, 02/22/2022 COVID-19 Vaccine (3 - season) 2024 10/29/2021, 11/02/2020 Influenza Vaccine (#1) 2024 07/28/2018 Dental Oral Exam 09/18/2024 03/17/2024, , 07/28/2018 SDOH Screening 10/12/2024 10/13/2023 Depression Screening 10/19/2024 10/20/2023, 10/20/19 Lipid Panel 12/04/2024 12/05/2023, 0711/2022, 10/18/2022 Dental X-Ray: Bitewings 12/15/2024 12/15/19 24, [...] EOSIN STAIN Routine 08/29/2024 4:03 PM EST MR KNEE WO CONTRAST LEFT Routine 08/07/2024 2:58 PM EST US PELVIS TRANSVAGINAL Routine 4:26 PM EST COMPREHENSIVE METABOLIC PANEL Routine 06/18/2024 7:54 AM EST TB lung, latent CASE PRESENTATION, DETAILED AND EXTENSIVE TREATMENT PLANNING Routine 06/17/2024 [...] caries associated with failed or defective dental yazidi Full coverage crown needed for root canal-treated [...] 12/05/2023 7:46 AM EDT Annual physical exam INTRAORAL - COMPLETE SERIES OF RADIOGRAPHIC IMAGES Routine 02/19/2023 2:30 PM EDT Dental caries HM COLONOSCOPY Routine 05/28/2022 1:55 PM EDT ZZZ HISTORICAL HPV E6/E7 RFLX JACOB 16 18/45 Routine 08/15/2021 1:40 PM EST THINPREP PAP Routine 01/11/2021 11:51 AM EDT from Last 3 Months or Most Recently Relevant to Health Maintenance Results * Hematoxylin and Eosin Stain (08/29/2024 4:03 PM EST) 08/29/2024 4:03 PM EST 08/30/2024 7:40 AM EST [facility] - 08/31/2024 12:42 PM EST ----- ------- Name: Karen Og ?Age/Sex: 54/F ? : 1970 Unit#: [id number] ?? Attend Dr: Juan Espinoza MD ?Re08/29/24 ?Status: DEP REF ? Location: HO.LNP ?Disch: ? ----- ------- SPEC : [id number] ?RECD: 08/30/24 ? STATUS: ??SOUT ? REQ NUM: [id number] ? MORGAN: 08/29/24-1603 ? SUBM DR: Juan Espinoza MD ? [...] To: ?? Tammi Burgess MD ?? [address] [facility] ?? [place] [address] ?? [phone] ?? Juan Espinoza MD ?? [facility] ?? [address] ?? [place] [address] ?? [phone] ----- ------- Signed (signature on file) Katlyn Hayti 08/31/24 1242 ? ----- ------- ? END OF REPORT ? us Generic External Data Provider LAB BLOOD ORDERAB LES Final Result [facility] [address] [place] [address] [phone] * MR Knee w/o Contrast Left (08/07/2024 2:58 PM EST) Anatomical Region Laterality Modality Magnetic Resonan ce 08/07/2024 2:58 PM EST Narrative 08/09/2024 10:56 AM EST ? [facility] ?[address] ?[place], [place] [address] ? Magnetic Resonance Report ? Signed ? Patient: Og,Karen M ?MR#: [id number] ?? 4 ? : 1970 ?Acct:[id number] ? Age/Sex: 54 / F ?ADM Date: 08/07/24 ? Loc: HO.MRI ? Attending Dr: Keyon Bowles MD ? Ordering Physician: Keyon Bowles MD ?? Date of Service: 08/07/24 ?? Procedure(s): MR knee LT wo con ?? Accession Number(s): [id number] ? cc: Tammi Burgess MD; Keyon Bowles [...] signed by Gucci Novak MD in OV> ?08/09/24 1053 ? DD/ 1458 ? TD/TT: 08/07/24 1507 ? Industrial Roofer: ? Procedure Note Donotuseinterpreter, Image - 08/09/2024 [place] [address] Magnetic Resonance Report Signed Patient: Karen Og MMR#: [id number] 4 : 1970Acct:[id number] Age/Sex: 54 / FADM Date: 08/07/24 Loc: HO.MRI Attending Dr: Keyon Bowles MD Ordering Physician: Keyon Bowles MD Date of Service: 08/07/24 Procedure(s): MR knee LT wo con Accession Number(s): [id number] cc: Tammi Burgess MD; Keyon Bowles MD [...] significant suprapatellar joint effusion. There is no Crutis's cyst. The anterior and posterior cruciate ligaments [...] Gucci Novak MD 08/09/2024 10:53 AM EST Dictated By: Gcuci Novak MD Signed By: <Electronically signed by Gucci Novak MD in OV> 08/09/24 1053 DD/ 1458 TD/TT: 08/07/24 1507 Industrial Roofer: [facility] External Provider IMG MRI PROCEDURES Final Result * US Pelvis Transvaginal (08/02/2024 4:26 PM EST) Anatomical Region Laterality Modality Pelvis Ultrasound 08/02/2024 4:26 PM EST Narrative 08/02/2024 4:27 PM EST ? [facility] ?[address] ?[place] [address] ? Ultrasound Report ? Signed ? Patient: Og,Karen M ?MR#: [id number] ?? 4 ? : 1970 ?Acct:[id number] ? Age/Sex: 54 / F ?ADM Date: 01/06/25 ? Loc: HO.US ? Attending Dr: Juan Espinoza MD ? Ordering Physician: Juan Espinoza MD ?? Date of Service: 08/01/24 ?? Procedure(s): US pelvic and transvaginal ?? Accession Number(s): [id number] ? cc: Tammi Burgess MD; Juan Espinoza MD ? CLINICAL HISTORY: D25.9 - Leiomyoma of uterus, unspecified ? US pelvis transabdominal and transvaginal ? Comparison: US/OK/SR - US PELVIC AND TRANSVAGINAL - 09/28/23 [...] ? 08/02/241625 ? DD/ 25 ? TD/TT: 08/02/24 162 ? Industrial Roofer: ? Procedure Note Olu Banuelos - 08/02/[address] [address] Ultrasound Report Signed Patient: Karen Og [facility]#: [id number] 4 : 1970Acct:[id number] Age/Sex: 54 / FADM Date: 08/01/24 Loc: HO.US Attending Dr: Juan Espinoza MD Ordering Physician: Juan Espinoza MD Date of Service: 08/01/24 Procedure(s): US pelvic and transvaginal Accession Number(s): [id number] cc: Tammi Burgess MD; Juan Espinoza MD CLINICAL HISTORY: D25.9 - Leiomyoma of uterus, unspecified US pelvis transabdominal and transvaginal Comparison: US/OK/SR - US PELVIC AND TRANSVAGINAL - 09/28/23 [...] signed by Yeni Hutchison MD in OV> 01/02/17 1626 DD/ 25 TD/TT: 08/02/241625 Industrial Roofer: [facility] External Provider IMG US PROCEDURES Final Result * (ABNORMAL) Comprehensive Metabolic Panel (06/18/2024 7:54 AM EST) Sodium 139 135 - 145 mmol/L [facility] Potassium 4.7 3.3 - 5.1 mmol/L [facility] Chloride 104 96 - 108 mmol/L [facility] Carbon Dioxide 29 22 - 29 mmol/L [facility] Anion Gap 11(L) 12 - 20 [facility] Urea Nitrogen (BUN) 12 9 - 16 mg/dL [facility] Creatinine, Serum 0.74 0.5 - 1.4 mg/dL [facility] Estimated Glomerular Filt Rate >60 [facility] Comment:Chronic Kidney Disea se: Estimated GFR < 60 mL/min/1.79i2Rvanoi Kidney Disease: Estimated GFR < 15 mL/min/1.73m2 Glucose 89 60 - 115 mg/dL [facility] Calcium 9.2 8.4 - 10.2 mg/dL [facility] Bilirubin, Total 0.4 0.0 - 1.0 mg/dL [facility] Aspartate Amino Transferase 16 5 - 31 U/L [facility] Alanine Aminotransferase 22 0 - 31 U/L [facility] Total Protein 7.3 6.5 - 8.0 g/dL [facility] Albumin Level 3.6 3.5 - 5.0 g/dL [facility] Alkaline Phosphatase 63 39 - 117 U/L [facility] Blood Venous blood specimen / Unknown 06/18/2024 7:54 AM EST 06/18/2024 7:54 AM EST Tammi Sorenson MD LAB BLOOD ORDERAB LES Final Result [facility] [address] [place] [address] [phone] * Hepatitis Panel, General (03/08/2024 11:43 AM EDT) Hepatitis A IgM Nonreactive Nonreactive [facility] Comment:IgM antibodies to LEMUS V not detected; does not exclude earlyacute or recovered HAV infection. ~Hepatitis B Surface Antibody REACTIVE Nonreactive [facility] Comment:REACTIVE: > 11.99 mI U/mL Hepatitis B Core Antibody Nonreactive Nonreactive [facility] Hepatitis C Antibody Nonreactive Nonreactive [facility] Comment:Antibodies to HCV no t detected; does not exclude early acuteHCV infection. Hepatitis B Surface Ag Negative Negative [facility] 03/08/2024 11:4 3 AM EDT 03/08/2024 11:43 AM EDT us Generic External Data Provider LAB BLOOD ORDERAB LES Final Result [facility] [address] [place] [address] [phone] * BI Mammogram Screening Tomosynthesis Bilateral (02/26/2024 9:15 AM EDT) Anatomical Region Laterality Modality Breast Bilateral Mammography 02/26/2024 9:15 AM EDT Narrative 03/28/2024 11:07 PM EDT ? [facility] ?[address] ?[place] [address] ? Mammography Report ? Signed ? Patient: Og,Karen M ?MR#: [id number] ?? 4 ? : 1970 ?Acct:[id number] ? Age/Sex: 53 / F ?ADM Date: //24 ? Loc: HO.US ? Attending Dr: Tammi Sorenson MD ? Ordering Physician: Tammi Burgess MD ?Re ?? sults: 1Negative ? Date of Service: 02/26/24 ?Follow Up: 1 Year From Orig ?? inal Mammogram ? Procedure(s): MM tomosynthesis screening BI ?? Accession Number(s): [id number] ? cc: Tammi Burgess MD ? EXAMINATION: ?? MM SCREENING DIGITAL BREAST TOMOSYNTHESIS, BILATERAL ? CLINICAL INFORMATION: ? Screening. Asymptomatic. ? COMPARISON: ?? Mammography: This study is compared with prior exams dating back to ? 2018. ? TECHNIQUE: ?? Digital breast tomosynthesis is [...] by Karen Herrera MD in OV> ? 03/28/24 2304 ? DD/ 4 ? TD/TT: 02/26/24 0925 ? Industrial Roofer: ? Procedure Note Donotuseinterpreter, Image - 03/28/2024 [place] [address] Mammography Report Signed Patient: Karen Og MMR#: [id number] 4 : 1970Acct:[id number] Age/Sex: 53 / FADM Date: 02/26/24 Loc: . Attending Dr: Tammi Sorenson MD Ordering Physician: Tammi Burgess sults: 1Negative Date of Service: 02/26/24Follow Up: 1 Year From Orig inal Mammogram Procedure(s): MM tomosynthesis screening BI Accession Number(s): [id number] cc: Tammi Burgess MD EXAMINATION: MM SCREENING DIGITAL BREAST [...] signed by Karen Herrera MD in OV> 03/28/24 2304 DD/ 4 TD/TT: 02/26/24924 Industrial Roofer: us Tammi Sorenson MD IMG BI PROCEDURES Final Result * HIV-1/2 Antigen and Antibodies, Fourth Generation, with Reflexes (12/05/2023 7:46 AM EDT) HIV AB/AG Nonreactive Nonreactive [facility] Comment:HIV-1 p24 Ag and/or HIV-1/HIV-2 Ab not detected.A test result that is nonreactive does not exclude thepossibility of exposure to or infection with HIV-1 and/orHIV-2. Nonreactive results in this assay for individualswith prior exposure to HIV-1 and/or HIV-2 may be due toantigen and antibody levels that are below the limit ofdetection of this assay.[employer] HIV Ag/Ab Combo assay result andsupplemental assay results should be interpreted inconjunction with the patient's clinical presentation,history and other laboratory results. If the results areinconsistent with clinical evidence, additional testing issuggested to confirm the result. Blood Venous blood specimen / Unknown 12/05/2023 7:46 AM EDT 12/05/2023 7:46 AM EDT us Tammi Sorenson MD LAB BLOOD ORDERAB LES Final Result [facility] [address] [place] [phone] * Hemoglobin A1c (12/05/2023 7:46 AM EDT) Hemoglobin A1c 5.7 <6.0 % [facility] Comment:Hemoglobin A1C Refer ence Range Adults: 4.8 - 6.0 % Non diabetic: < 6.0 % Goal: < 7.0 %Additional Action Suggested: > 8.0 %Note: Hemoglobin A1c results are invalid for patients with abnormal amounts of HbF. Blood transfusions may impact the HbA1c concentration in the patient sample. Estimated Average Glucose 117 mg/dL [facility] Comment:eAG = Estimated ave rage glucose which is %A1C expressed asaverage glucose, using the formula of the T4I-HgzklazTdonlce Glucose study (ADAG), Diabetes Care, Vol.31,#8,Feb. 2007 Blood Venous blood specimen / Unknown 12/05/2023 7:46 AM EDT 12/05/2023 7:46 AM EDT us Tammi Sorenson MD LAB BLOOD ORDERAB LES Final Result [facility] [address] [place] [phone] * (ABNORMAL) Lipid Panel, Standard (12/05/2023 7:46 AM EDT) Triglycerides 144 <150 mg/dL [facility] Comment:Desirable Triglyceri de: less than 150 mg/dLBorderline High Triglyceride 150-199 mg/dLHigh Triglyceride: 200-499 mg/dLVery High Triglyceride: greater than or equal to 5OO mg/dL Cholesterol 200(H) <200 mg/dL [facility] Comment:Desirable Cholestero l: less than 200 mg/dLBorderline High Cholesterol: 200-239 mg/dLHigh Cholesterol: greater than 239 mg/dL LDL Cholesterol Calculated 121(H) <100 mg/dL [facility] Comment:Desirable LDL: less than 100 mg/dLNear Optimal/Above Optimal LDL: 110- 129 mg/dLBorderline High LDL: 130-159 mg/dLHigh LDL: 160-189 mg/dLVery High LDL: greater than or equal to 190 mg/dL HDL Cholesterol 51 >40 mg/dL [facility] Comment:Desirable HDL: great er than 40 mg/dL Note: This HDL assay may give artificially low results in patients with liver disease. Blood Venous blood specimen / Unknown 12/05/2023 7:46 AM EDT 12/05/2023 7:46 AM EDT us Tammi Sorenson MD LAB BLOOD ORDERAB LES Final Result [facility] [address] [place] [address] [phone] * Hm Colonoscopy (05/28/2022 1:55 PM EDT) us Historical Provider HEALTH MAINTENANCE Final Result * HPV E6/E7 RFLX JACOB 16 18/45 (08/15/2021 1:40 PM EST) Pathologist [facility] HPV 16 RNA TNP [facility] HPV 18/45 RNA [facility]NP [facility] HPV E6 E7 ADD TNP [facility] HPV mRNA E6/E7 rflx Not Detected Not Detected [facility] Comment: Methodology: Turbo Electric Operator-Mediated Amplification This assay detects E6/E7 viral messenger RNA (mRNA) from 14 high-risk HPV types (16,18,31,33,35,39,45,51,52,56,58,59,66,68). The analytical performance characteristics of this assay have been determined by [employer]. The modifications have not been cleared or approved by the FDA. This assay has been validated pursuant to the CLIA regulations and is used for clinical purposes. For additional information, please refer to http://education.Terviu/faq/HNG547i4 (This link if provided for information/ educational purposes only.) THIS TEST WAS PERFORMED AT: [employer] [address] [place] [address],[address] [place], [place] ??[phone] AMY BLANCAS MD 08/15/2021 1:40 PM EST us Historical Provider HISTORICAL/NON ORDERABLE LABS Final Result [facility] [address] * THINPREP PAP (01/11/2021 11:51 AM EDT) Pathologist [facility] Clinical Information: None given [facility] COMMENT SEE COMMENT [facility] [...] historic and ?? current clinical information. ?? Yeast Tender : SEE COMMENT [facility] Comment: GSG, CT(ASCP) CT screening location: [address] ??[phone] Interpretation/R esult: Negative for intraepithelial lesion or [...] Provider MD LAB PATHOLOGY ORDERABLES Final Result [facility] [address] from Last 3 Months or Most Recently Relevant to Health Maintenance Insurance [id number] FULL [facility] GOLD DENTAL - HSN FULL (MEDICAID) Care Teams Construction Technology Instructor Relationship Specialty Start Date End Date Tammi Burgess MD [address] [place] [address] PCP - General Internal Medicine 04/13/23
--- OUTSIDE RECORDS SUMMARY | 2024-09-15 16:29 | XMS_ITS | Encounter Summary ---
Author Organization [employer] Address [address] [place] [address] [address] [place] [address] Care Team Providers Care Core Sticker Name Role Phone Charito Lawrence Primary Care Provider [phone] Tammi Burgess MD Primary Care Pro vider Encounter Details Date Type Department Care Team (Late st Contact Info) Description 03/31/2023 Abstract [facility] ADULT DENTAL [address] [place] [address] Jamey Hussein, DMD [address] [place] [address] Social History Tobacco Use Types Packs/Day Years [...] Description 12/21/2024 3:00 PM EDT Office Visit [facility] ADULT DENTAL [address] [place] [address] Bozena Rader [address] [place] [address] documented as of this encounter Visit Diagnoses Not on filedocumented in this encounter Care Teams Core Sticker Relationship Specialty Start Date End Date Charito Lawrence FNP PCP - General Family Medicine 05/17/21 04/12/23 Tammi Burgess MD [address] [place] [phone] PCP - General Internal Medicine 04/13/23 documented as of this encounter
--- OUTSIDE RECORDS SUMMARY | 2024-09-15 16:29 | XMS_ITS | Encounter Summary ---
Author Organization [employer] Address [address] [place] [address] [address] [place] [address] Care Team Providers Care Manager Clinical Applications Name Role Phone Tammi Burgess MD Primary Care Pro vider Reason for Visit * Reason Onset Date Comments Nurse Triage 07/16/2023 Encounter Details Date Type Department Care Team ([facility] st Contact Info) Description 07/16/2023 Telephone [facility] MEDICINE [address] [place] [address] Tammi Burgess MD [address] [place] [address] Nurse Triage Social History Tobacco Use Types [...] 07/16/2023 4:32 PM EST Triage [place] with [place] [id number] Pt requests for Pt to speak for Pt. Pt has acute right knee pain. Pt has been seen in [facility] 07/09/23. Pt was prescribed tylenol 500mg, brace, voltaren gel and xrays. Xrays have been done. Pt isasking what xray results are leader writer advised that there is evidence of [...] Description 12/21/2024 3:00 PM EDT Office Visit [facility] ADULT DENTAL [address] [place], [place] [phone] Bozena Rader [address] [place], [place] [phone] documented as of this encounter Visit Diagnoses Not on filedocumented in this encounter Care Teams Manager Clinical Applications Relationship Specialty Start Date End Date Tammi Burgess MD [address] [place] [address] PCP - General Internal Medicine 04/13/23 documented as of this encounter
--- OUTSIDE RECORDS SUMMARY | 2024-09-15 16:29 | XMS_ITS | Data Portability ---
Author Organization [place] [facility] Address [address] [place] [phone] Care Team Providers Care Business Process Architect Name Role Phone [facility] Primary Care Provider Assessment Encounter Date Assessment [...] as needed for subjective changes in hearing. [email or web address] Not available 07/05/2024 11:53:16 Plan of Treatment [...] Organization Details Recorded Time Abnormal auditory perception 03791011 Active 024 Claudia pollard MA [facility] 11:26:51 Problem Notes None recorded. Procedures Surgical History Date Name Laterality Status Provider Name and Address Organization Details Recorded Time 07/05/20 24 Tympanometry (62661) completed Claudia Love [facility] 07/05/2024 11:26:42 07/05/20 24 [employer] (92347) completed Claudia Love [facility] 07/05/2024 11:26:38 Imaging Results Imaging Date Name Status LastModified by Organiz ation Details LastModified Time 07/05/2024 audiogram completed [facility] Information no t available 07/05/2024 14:07:50 Procedure Notes None recorded. Medical Equipment None Reported. Allergies Allergen ID Allergen Name Allergen Category Reaction Reaction Severity Criticality Documentation Date Start Date Code Code System Note Provider Name and Address Organization Details Recorded Time 189352 aspirin medicatio n Not available Not available Not available 07/05/2024 1191 RxNorm Martine pollard MA [facility] 11:36:59 Medications Name Sig Start [...] Details Last Updated DateTime 07/05/2024 157.48 cm 71692.86 g Martine Pearce [place] - [facility] 07/05/2024 11:36:51 Social History None recorded. Functional Status None recorded. Mental Status None recorded. Family History Nothing Reported. Medical History Condition Response GERD/Reflux Y Gynecological HistoryNo gynecological history recorded. Obstetrics History GPAL:G 0 P 0 0 0 0 Past Encounters Encounter ID Performer Location Encounter Start Date Encounter Closed Date Diagnosis/Indication Diagnosis SNOMED-CT Code Diagnosis ICD10 Code Diagnosis Note [id number] BALBIR HENDRICKSON MD [facility] [address] [phone] 07/05/2024 10:26:51 07/05/2024 11:54:36 Abnormal auditory perception 13030666 H93.299 Audiologic al evaluation results: Right ear: [...] Melvin Member ID Guarantor Name 07/05/2024 1 [facility] Karen Og [id number] Karen Og Notes Date Note Type [...] remedies for hearing loss. BALBIR HENDRICKSON MD [address] [place] [address], [phone], [facility] 07/05/2024 11:53:35 OBGyn Episode No OBEpisode recorded.
--- OUTSIDE RECORDS SUMMARY | 2024-09-15 16:29 | XMS_ITS | Encounter Summary ---
Author Organization [employer] Address [address] [facility] 7[address] [place] [address] Care Team Providers Care Paper Cutter Name Role Phone Tammi Burgess MD Primary Care Pro vider Encounter Details Date Type Department Care Team ([facility] st Contact Info) Description 07/18/2024 Orders Only [facility] MEDICINE [address] [place], [place] [phone] ProviderChata MD Social History Tobacco Use Types [...] 1:55 PM EST Pelvic US ordered by DESIGN/ANIMATION INSTRUCTOR. Patient to fu results with DESIGN/ANIMATION INSTRUCTOR (Dr Espinoza). documented in this encounter Plan of Treatment Upcoming Encounters Date Type Department Care Team (Late st Contact Info) Description 12/21/2024 3:00 PM EDT Office Visit [facility] ADULT DENTAL [address] [place] [address] Prasanth, Bozena [address] [place] [address] documented as of this encounter Procedures Procedure [...] Narrative 08/09/2024 10:56 AM EST ? [facility] ?[address] ?[place] [address] ? Magnetic Resonance Report ? Signed ? Patient: Og,Karen M ?MR#: [id number] ?? 4 ? : 1970 ?Acct:[id number] ? Age/Sex: 54 / F ?ADM Date: 01/12/25 ? Loc: HO.MRI ? Attending Dr: Keyon Bowles MD ? Ordering Physician: Keyon Bowles MD ?? Date of Service: 08/07/24 ?? Procedure(s): MR knee LT wo con ?? Accession Number(s): [id number] ? cc: Tammi Burgess MD; Keyon Bowles [...] DD/ 1458 ? TD/TT: 08/07/24 1507 ? Delinquent Tax Collection Assistant: ? Procedure Note Donotuseinterpreter, Image - 08/09/[address] [address] Magnetic Resonance Report Signed Patient: Karen Og [facility]#: [id number] 4 : 1970Acct:[id number] Age/Sex: 54 / FADM Date: 08/07/24 Loc: HO.MRI Attending Dr: Keyon Bowles MD Ordering Physician: Keyon Bowles MD Date of Service: 08/07/24 Procedure(s): MR knee LT wo con Accession Number(s): [id number] cc: Tammi Burgess MD; Keyon Bowles MD [...] 08/09/24 1053 DD/ 1458 TD/TT: 08/07/24 1507 Delinquent Tax Collection Assistant: [facility] External Provider IMG MRI PROCEDURES Final Result * US Pelvis Transvaginal (08/02/2024 4:26 PM EST) Anatomical Region Laterality Modality Pelvis Ultrasound 08/02/2024 4:26 PM EST Narrative 08/02/2024 4:27 PM EST ? [facility] ?[address] ?[place] [address] ? Ultrasound Report ? Signed ? Patient: Karen Og ?MR#: [id number] ?? 4 ? : 1970 ?Acct:[id number] ? Age/Sex: 54 / F ?ADM Date: 08/01/24 ? Loc: HO.US ? Attending Dr: Juan Espinoza MD ? Ordering Physician: Juan Espinoza MD ?? Date of Service: 08/01/24 ?? Procedure(s): US pelvic and transvaginal ?? Accession Number(s): [id number] ? cc: Tammi Burgess MD; Juan Espinoza MD ? CLINICAL HISTORY: D25.9 - Leiomyoma of uterus, unspecified ? US pelvis transabdominal and transvaginal ? Comparison: US/UT/SR - US PELVIC AND TRANSVAGINAL - 09/28/23 [...] DD/ 1626 ? TD/TT: 08/02/24 1626 ? Delinquent Tax Collection Assistant: ? Procedure Note Vin, Image - 08/02/[address] [address] Ultrasound Report Signed Patient: Karen Og [facility]#: [id number] 4 : 1970Acct:[id number] Age/Sex: 54 / FADM Date: 08/01/24 Loc: HO.US Attending Dr: Juan Espinoza MD Ordering Physician: Juan Espinoza MD Date of Service: 08/01/24 Procedure(s): US pelvic and transvaginal Accession Number(s): [id number] cc: Tammi Burgess MD; Juan Espinoza MD CLINICAL HISTORY: D25.9 - Leiomyoma of uterus, unspecified US pelvis transabdominal and transvaginal Comparison: US/UT/SR - US PELVIC AND TRANSVAGINAL - 09/28/23 [...] OV> 08/02/24 1626 DD/ 25 TD/TT: 08/02/241625 Delinquent Tax Collection Assistant: [facility] External Provider IMG US PROCEDURES Final Result * Hm Colonoscopy (05/28/2022 1:55 PM EDT) Historical Provider HEALTH MAINTENANCE Final Result documented in this encounter Visit Diagnoses Not on filedocumented in this encounter Additional Health Concerns Assessment Noted Time PHQ-9 Depression Total Score: 5 10/20/19 24 10:39 AM EDT documented as of this encounter Care Teams Paper Cutter Relationship Specialty Start Date End Date Tammi Burgess MD [address] [place] [id number] PCP - General Internal Medicine 04/13/23 documented as of this encounter
--- OUTSIDE RECORDS SUMMARY | 2024-09-15 16:29 | XMS_ITS | Encounter Summary ---
Author Organization [employer] Address [address] [facility] 7[address] [place] [address] Care Team Providers Care Director Of Golf Name Role Phone Tammi Burgess MD Primary Care Pro vider Encounter Details Date Type Department Care Team (Late st Contact Info) Description 08/06/2023 Orders Only [facility] MEDICINE [address] [place], [place] [phone] Judy Prieto MD [address] [place], [place] [phone] Acute pain of right knee (Primary Dx); [...] Description 12/21/2024 3:00 PM EDT Office Visit [facility] ADULT DENTAL [address] [place] [address] Prasanth, Bozena [address] [place] [address] documented as of this encounter Visit Diagnoses Diagnosis Acute pain of right knee- Primary Effusion of right knee Dislocation of right knee with medial meniscus tear, initial encounter documented in this encounter Additional Health Concerns Assessment Noted Time PHQ-9 Depression Total Score: 0 07/23/20 23 11:15 AM EST documented as of this encounter Care Teams Director Of Golf Relationship Specialty Start Date End Date Tammi Burgess MD [address] [place] [id number] PCP - General Internal Medicine 04/13/23 documented as of this encounter
--- OUTSIDE RECORDS SUMMARY | 2024-09-15 16:29 | XMS_ITS | Encounter Summary ---
Author Organization [facility] Address [address] [place] [address] [address], [place] [address] Care Team Providers Care Education Spec Name Role Phone Charito Lawrence Primary Care Provider [phone] Tammi Burgess MD Primary Care Pro vider Encounter Details Date Type Department Care Team (Latest Contact Info) Description 07/29/2018 Abstract [facility] CONVERSIONS Dental, Provider, DDS Social [...] Description 12/21/2024 3:00 PM EDT Office Visit [facility] ADULT DENTAL [address] [place] [address] Prasanth, Bozena [address] [place] [address] documented as of this encounter Visit Diagnoses Not on filedocumented in this encounter Care Teams Education Spec Relationship Specialty Start Date End Date Charito Lawrence FNP PCP - General Family Medicine 05/17/21 04/12/23 Tammi Burgess MD [address] [place] [address] PCP - General Internal Medicine 04/13/23 documented as of this encounter
== END 2024-09-15 16:05 | disposition home or self-care (01) ==
PROVIDERS: PCP Student in an Organized Health Care Education/Training Program; Visit Provider Obstetrics & Gynecology
DX: N95.0 Postmenopausal bleeding (principal)
CPT/HCPCS: 99213

== ENCOUNTER → 2024-09-15 15:25 | Outpatient (BNVA) | payer OTHER, SELFPAY | PROVIDERS: PCP Student in an Organized Health Care Education/Training Program; Visit Provider Obstetrics & Gynecology | DX: N95.0 Postmenopausal bleeding (principal) | CPT/HCPCS: 99212 ==

== ENCOUNTER 2024-09-20 15:35 | Outpatient (AMB) | payer OTHER, SELFPAY ==
--- NOTE | 2024-09-20 15:43 | MHC.OFFVIS ---
Vital Signs 09/20/24 15:50 Height 5 ft 2 in Weight 150 lb 5.684 oz BMI 27.5 BP 115/78 Blood Pressure Location Lt brachial Position Sitting Pulse 79 Pulse Source Pulse Oximeter Pulse Oximetry (%) 98 Oxygen Delivery Method Room Air Intake Visit Reasons: +HLA b27 Intake Note: Patient presents for +HLA b27. Central Supply Clerk Required: Yes Central Supply Clerk Language: Automotive Machinist Services: Central Supply Clerk Offered & Declined Central Supply Clerk Name: Sigifredo Mays Information Interpreted: non-clinical & clinical Accompanied by: Spouse Allergies aspirin [ASPIRIN] Allergy (Unknown, Verified 09/20/24 15:49) SWELLING, facial swelling Medication List - Last Reconciled 09/20/24 by Katheryn Dixon MD acetaminophen 500 mg PO Q6H PRN clonazepam 0.5 mg PO BEDTIME cyclobenzaprine 5 mg PO TID PRN dicyclomine 10 mg PO TID divalproex (Depakote) 750 mg (1.5 x 500 mg) PO BID 30 days duloxetine 1 cap PO DAILY famotidine 20 mg PO BID gabapentin 300 mg PO TID lidocaine 5% patches topical naproxen 500 mg PO BID omeprazole 20 mg PO DAILY semaglutide (weight loss) (Wegovy) mg subcut QWEEK triamcinolone acetonide 0.1% appl topical HPI Comments Details: Patient is a 54-year-old female chronic back pain in the setting of HLA B27 positivity here today for follow up Interval History: patient last seen 07/19/[address] Melendez. At that time she continued to have intermittent joint pain involving her knees, hands and her back with arm a few minutes of morning stiffness. She did not take the naproxen that was prescribed to her. She had a left knee MRI which showed evidence of moderate osteoarthritis and no meniscal tears. Was supposed to do MRI of the SI joints but unfortunately did not have that done Today, patient is unchanged continues to complain back pain and knee pain Rheumatologic History: Initial history: This is a 53-year-old female who presents for evaluation of chronic back pain with positive HLA B27. Patient was evaluated by Dr. Reba gonzales in 2015 and he wants to start patient on Enbrel. Apparently it was not authorized by insurance. Patient states that she has had chronic low back pain for more than 8 years. The pain lasts all day, she has morning stiffness of her back that lasts more than 10 minutes but it it does not go away throughout the day. Also has pain at the radial aspect of her hands bilaterally without any significant swelling. She states that she tore her meniscus 6 or 7 months ago , surgery was offered but patient decided to do PT. She continues to have right knee pain but it has improved compared to how it was. She states that she took Advil in the past for her pains and it did not help much. She denies any history suggestive of psoriasis, uveitis or colitis. She is unaware of any family history of an autoimmune rheumatic disease. Denies any history of DVT/PE. She had 3 pregnancies and 3 children Current Rheumatology Medication(s): Naproxen 500mg bid (patient not taking) [facility] Medical History (Updated 09/21/24 @ 09:23 by Katheryn Dixon MD) Osteoarthritis of knees, bilateral Migraine Anxiety disorder Fibromyalgia Seizure Surgical History History of cholecystectomy History of tubal ligation Family History Maternal Grandmother Diabetes Father HTN (hypertension) Mother HTN (hypertension) Social History Household Members: Spouse Household Members Other:: son Housing: House Alcohol intake: current Alcohol intake frequency: holidays/special occasions only Patient Tobacco Use Status: Never used Tobacco Current occupational status: employed 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 Sexual orientation: Straight/Heterosexual Gender identity: Female Female Reproductive History Menstrual Age of Menarche: 10 Review of Systems Const Details: Review of Systems Constitutional: Denies fever, chills, weight loss ENT: Denies vision changes, eye pain or eye redness, dental caries, dry mouth GI: Denies nausea, vomiting, diarrhea, abdominal pain, change in BM Pulm: Denies SOB, DICKSON, hemoptysis, wheezing Cards: Denies chest pain, palpitations Skin: Denies Raynaud's, rash, nail changes, photosensitivity, SPIKEMAKING SUPERVISOR: Denies headaches, weakness, paresthesias, recurrent falls MSK: as per HPI All other systems reviewed and are unremarkable except noted above Physical Exam Vital Signs: Last Vital Signs Pulse 79 02/25/25 15:50 BP 115/78 09/20/24 15:50 Pulse Ox 98 09/20/24 15:50 Oxygen Delivery Method Room Air 09/20/24 15:50 BMI result Body Mass Index 27.5 Vital signs reviewed Physical Examination CONSTITUITIONAL Patient alert and cooperative. Well appearing and in no apparent painful distress HEENT Conjunctiva and sclera clear. Pupils equal round and reactive to light. No lymphadenopathy. CHEST/RESPIRATORY SYSTEM Normal respiratory effort and able to speak in complete sentences. Clear to auscultation bilaterally. No crackles, rales, rhonchi, wheezes heard. CARDIAC SYSTEM Regular rate and rhythm. S1 and S2 heard no murmurs. Radial pulses intact bilaterally MSK Hands: Good correctional counselor strength bilaterally. No deformities noted. No synovitis noted to the MCPs, PIPs or DIPs. No tenderness to palpation of these joints. Wrists: Full range of motion at the wrists without pain. No tenderness to palpation or synovitis noted to the wrists. Elbows: Full range of motion without pain. No tenderness, weakness, swelling, increased warmth or erythema. Shoulders: Full range of motion without pain. No tenderness, weakness, swelling, increased warmth or erythema. Hips: Full range of motion without pain. Hip bursa: Tenderness to palpation Knees: Full range of motion. No tenderness, swelling, increased warmth or erythema.?No effusion or crepitations Ankles: Full range of motion. No tenderness, swelling, increased warmth or erythema.? Feet: Negative squeeze test. No tenderness to palpation or swelling of the MTPs. Tender points:?No tenderness to palpation of the bilateral trapezius, supraspinatus, greater trochanters, anterior costochondral junctions, bilateral gluteal areas, bilateral suboccipital muscle insertions Normal Stan test SHI (right side): normal SHI (left side): Equivocal. Got some pain in the back but pain was mostly in the knee SKIN Skin intact without rashes. Results Reviewed Results Reviewed: Laboratory Tests 12/05/23 03/02/24 03/08/24 07:46 16:17 11:43 WBC 6.2 RBC 4.16 L Hgb 12.8 Hct 39.8 Plt Count 229 ESR 8 Sodium Potassium Chloride Carbon Dioxide BUN Creatinine AST ALT Alkaline Phosphatase C-Reactive Protein 0.94 H 0.75 H Total Protein Albumin Rheumatoid Factor < 13.0 Cycl Citrul Peptide IgG <16 KOFI Screen NEGATIVE HLA-B27 Positive A Hepatitis A IgM Ab Nonreactive Hep Bs Antigen Negative Hep Bs Antibody REACTIVE Hep B Core Total Ab Nonreactive Hepatitis C Ab (EIA) Nonreactive TB Test (T-Spot) Com Positive A 06/18/24 07:54 WBC RBC Hgb Hct Plt Count ESR Sodium 139 Potassium 4.7 Chloride 104 Carbon Dioxide 29 BUN 12 Creatinine 0.74 AST 16 ALT 22 Alkaline Phosphatase 63 C-Reactive Protein Total Protein 7.3 Albumin 3.6 Rheumatoid Factor Cycl Citrul Peptide IgG KOFI Screen HLA-B27 Hepatitis A IgM Ab Hep Bs Antigen Hep Bs Antibody Hep B Core Total Ab Hepatitis C Ab (EIA) TB Test (T-Spot) Com XR Bilateral Hands/Wrists 02/2024 FINDINGS: RIGHT HAND/WRIST: The bones and soft tissues are normal. No fracture. Alignment is anatomic. Joint spaces are maintained. No erosions or soft tissue calcifications. LEFT HAND/WRIST: The bones and soft tissues are normal. No fracture. Alignment is anatomic. Joint spaces are maintained. No erosions or soft tissue calcifications. XR Bilateral Knees 06/2024 FINDINGS (Left): Mild lateral compartment arthritis, with mild joint space loss. Small marginal spurring in the medial compartment. No visible acute fracture or dislocation. Small suprapatellar joint fluid. FINDINGS (Right): No evidence of acute fracture or dislocation. No significant effusion. Mild medial and lateral compartment arthritis. At least mild patellofemoral arthritis. Suboptimal skyline limits evaluation. No abnormal soft tissue calcification. MRI left knee 07/2024 FINDINGS: There is mild bone marrow edema involving the medial aspect of the proximal tibial metaphysis, suggestive of a bone contusion. There is a subcentimeter cyst in the anterior aspect of the proximal tibia. Bone marrow signal intensity is otherwise normal. There is no significant suprapatellar joint effusion. There is no Curtis's cyst. The anterior and posterior cruciate ligaments and medial and lateral collateral ligaments are intact. The medial and lateral menisci are intact. The patellar and quadriceps tendons and patellar retinacula are unremarkable in appearance. The popliteus tendon is intact. There is moderate osteoarthritis of the patellofemoral compartment with cartilage loss and subchondral marrow changes. There is mild degenerative change of the medial compartment with cartilage loss. IMPRESSION: 1. Findings consistent with a mild bone contusion involving the medial aspect of the proximal tibial metaphysis. 2. Moderate osteoarthritis of the patellofemoral compartment and mild osteoarthritis of the medial compartment. 3. No evidence of a meniscal tear. Assessment & Plan Assessment & Plan (1) Chronic low back pain: Code(s): M54.50 - Low back pain, unspecified; G89.29 - Other chronic pain Category: Medical Qualifiers: Back pain laterality: bilateral Sciatica presence: without sciatica Qualified Code(s): M54.50 - Low back pain, unspecified; G89.29 - Other chronic pain Plan: #Chronic low back pain Patient is a 54-year-old woman with chronic low back pain in the setting of a positive HLA B27 and mildly elevated inflammatory markers. Her ESR is normal her CRP is 90 0.7/0.6 with an upper limit of 0.5. I do not know how to interpret this but her exam and history is not consistent with axial spondyloarthritis. Her x-rays of her SI joints were also normal. We need to get the MRI to get objective evidence of her disease if she truly has inflammation in her SI joints. She has not taken the naproxen out of concern for the side effects but I encouraged her to take the naproxen for at least 2 weeks consistently to see if this helps with her pain at all. Plan - Follow up MRI SI joints - Will add MRI of the L spine as well - RTC after MRI (2) Osteoarthritis of knees, bilateral: Code(s): M17.0 - Bilateral primary osteoarthritis of knee Category: Medical Qualifiers: Osteoarthritis type: primary Qualified Code(s): M17.0 - Bilateral primary osteoarthritis of knee Plan: #Bilateral Knee OA Patient with radiographic evidence of osteoarthritis. 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
[2024-09-20 15:50] VITALS: BP 115/78; PULSE 79; O2SAT 98; BMI 27.5
--- OUTSIDE RECORDS SUMMARY | 2024-09-20 19:21 | XMS_ITS | Clinical Summary ---
Author Organization [employer] Address [address] [place] [address] 7t [place] [address] Care Team Providers Care Senior Software Tester Name Role Phone Tammi Burgess MD Primary [...] cancer: Never smoker Eye: 02/2023 WNL at [facility] Dental: up to date Hernia of [...] Orders Only GENERIC EXTERNAL DATA DEPARTMENT Provider, [facility] External Data 08/11/2024 Refill [facility] [address] [place] [address] Tammi Burgess MD 07/26/2024 Telephone [facility] [address] [place] [address] Tammi Burgess MD Prior Authorization ([employer]) 07/25/2024 Refill [facility] [address] [place] [address] Tammi Burgess MD 07/18/2024 Orders Only [facility] [address] [place] [address] Chata Guillen MD 07/13/2024 Refill [facility] [address] [place] [address] Tammi Burgess MD 07/03/2024 Refill [facility] [address] [place] [address] Tammi Burgess MD 06/22/2024 10:00 AM EST Office Visit [facility] [address] [place] [address] Tammi Burgess MD Seizure ([facility]) (Primary Dx); Prediabetes; Fibromyositis; Human leukocyte antigen B27 spondyloarthropathy; Knee pain, unspecified chronicity, unspecified laterality; Health care maintenance; Hyperlipidemia, unspecified hyperlipidemia type; LTBI (latent tuberculosis infection); Mixed anxiety and depressive disorder 06/22/2024 Telephone [facility] [address] [place] [phone] Tammi Burgess MD 06/22/2024 Travel from Last 3 Months Immunizations Name Administration Dates Next Due Hep B, adult 11/02/2023,06/08/2023,04/30/2023 Influenza injectable quadriv alent preservative free 07/28/2018 MMR 05/23/2006 Tdap 10/20/2023,09/10/2010 Zoster, Recombinant 06/15/2023,,04/13/2023(Deferr ed: No longer needed) Family History Medical [...] Care Team (Late st Contact Info) Description 10/21/2024 2:00 PM EDT Office Visit [facility] [address] [place] [address] Jamey Hussein, DMD [address] [place] [address] 12/21/2024 3:00 PM EDT Office Visit [facility] [address] [place] [address] PrasanthOleBozena [address] [place] [address] Health Maintenance Due Date Last Done Comments CT Colonography 1970 FIT DNA/Cologuard 1970 FIT 1970 FOBT 1970 Sigmoidoscopy 1970 Diabetes: Foot Exam 1980 Eye Exam 1980 Diabetes: Urine Protein Screening 1989 Pneumococcal Vaccine: 50+ Years (1 of 2 - PCV) 1989 Diabetes: Hemoglobin A1C 03/06/2024 024, 02/07/2023, 02/22/2022 COVID-19 Vaccine ( - season) 2024 10/29/2021, 11/02/2020 Influenza Vaccine [...] US PELVIS TRANSVAGINAL Routine 4:26 PM EST PROPHYLAXIS - ADULT Routine 06/17/2024 3 :00 PM EST Dental plaque PERIODIC ORAL EVALUATION - ESTABLISHED PATIENT Routine 03/17/2024 3:00 PM EDT Secondary dental caries associated with failed or defective dental jainism Full coverage crown needed for root canal-treated [...] 4:03 PM EST 08/30/2024 7:40 AM EST Narrative [facility] - 08/31/2024 12:42 PM EST ----- ------- Name: Karen Og ?Age/Sex: 54/F ? : 1970 Unit#: [id number] ?? Attend Dr: Juan Espinoza MD ?Re08/29/24 ?Status: DEP REF ? Location: HO.LNP ?Disch: ? ----- ------- SPEC : [id number] ?RECD: 08/30/24 ? STATUS: ??SOUT ? REQ NUM: [id number] ? MORGAN: 08/29/24 ? SUBM DR: Juan Espinoza MD ? [...] To: ?? Tammi Burgess MD ?? [address] [facility] ?? [place] [address] ?? [phone] ?? Juan Espinoza MD ?? [facility] ?? [address] [facility] [address] ?? [place] [address] ?? [phone] ----- ------- Signed (signature on file) Katlyn Viveros 08/31/24 1242 ? ----- ------- ? END OF REPORT ? us Generic External Data Provider LAB BLOOD ORDERAB LES Final Result Performing Organization Address [facility]/State/ZIP Co de Phone Number [facility] [address] [facility] [place] [address] [phone] * MR Knee w/o Contrast Left (08/07/2024 2:58 PM EST) Anatomical Region Laterality Modality Magnetic Resonan ce 08/07/2024 2:58 PM EST Narrative 08/09/2024 10:56 AM EST ? [facility] ?[address] ?[place] [address] ? Magnetic Resonance Report ? Signed ? Patient: Og,Karen M ?MR#: [id number] ?? 4 ? : 1970 ?Acct:[id number] ? Age/Sex: 54 / F ?ADM Date: 08/07/24 ? Loc: HO.MRI ? Attending Dr: Keyon Bowles MD ? Ordering Physician: Keyon Bowles MD ?? Date of Service: 08/07/24 ?? Procedure(s): MR knee LT wo con ?? Accession Number(s): [id number] ? cc: Tammi Burgess MD; Keyon Bowles [...] ??Gucci Novak MD ??08/09/2024 10:53 AM EST ? Dictated By: ?Gucci Novak MD ? Signed By: ?<Electronically signed by Gucci Novak MD in OV> ?08/09/243 ? DD/ 1458 ? TD/TT: 08/07/24 1507 ? Dry Cans Back Tender: ? Procedure Note Donotuseinterpreter, Image - 08/09/2024 [place] [address] Magnetic Resonance Report Signed Patient: Karen Og [facility]#: [id number] 4 : 1970Acct:[id number] Age/Sex: 54 / FADM Date: 08/07/24 Loc: HO.MRI Attending Dr: Keyon Bowles MD Ordering Physician: Keyon Bowles MD Date of Service: 08/07/24 Procedure(s): MR knee LT wo con Accession Number(s): [id number] cc: Tammi Burgess MD; Keyon Bowles MD [...] 08/09/24 1053 DD/ 1458 TD/TT: 08/07/24 1507 Dry Cans Back Tender: [facility] External Provider IMG MRI PROCEDURES Final Result * US Pelvis Transvaginal (08/02/2024 4:26 PM EST) Anatomical Region Laterality Modality Pelvis Ultrasound 08/02/2024 4:26 PM EST Narrative 08/02/2024 4:27 PM EST ? [facility] ?[address] ?[place] [address] ? Ultrasound Report ? Signed ? Patient: Karen Og ?MR#: [id number] ?? 4 ? : 1970 ?Acct:[id number] ? Age/Sex: 54 / F ?ADM Date: 08/01/24 ? Loc: HO.US ? Attending Dr: Juan Espinoza MD ? Ordering Physician: Juan Espinoza MD ?? Date of Service: 08/01/24 ?? Procedure(s): US pelvic and transvaginal ?? Accession Number(s): [id number] ? cc: Tammi Burgess MD; Juan Espinoza MD ? CLINICAL HISTORY: D25.9 - Leiomyoma of uterus, unspecified ? US pelvis transabdominal and transvaginal ? Comparison: [place]/SR - US PELVIC AND TRANSVAGINAL - 09/28/23 [...] ? DD/ 25 ? TD/TT: 08/02/241625 ? Dry Cans Back Tender: ? Procedure Note Vin, Image - 08/02/[address] [address] Ultrasound Report Signed Patient: Karen Og [facility]#: [id number] 4 : 1970Acct:[id number] Age/Sex: 54 / FADM Date: 08/01/24 Loc: HO.US Attending Dr: Juan Espinoza MD Ordering Physician: Juan Espinoza MD Date of Service: 08/01/24 Procedure(s): US pelvic and transvaginal Accession Number(s): [id number] cc: Tammi Burgess MD; Juan Espinoza MD CLINICAL HISTORY: D25.9 - Leiomyoma of uterus, unspecified US pelvis transabdominal and transvaginal Comparison: [place]/SR - US PELVIC AND TRANSVAGINAL - 09/28/23 [...] signed by Yeni Hutchison MD in OV> 08/02/241625 DD/ 25 TD/TT: 08/02/241625 Dry Cans Back Tender: [facility] External Provider IMG US PROCEDURES Final Result * Hepatitis Panel, General (03/08/2024 11:43 AM EDT) Hepatitis A IgM Nonreactive Nonreactive [facility] Comment:IgM antibodies to LEMUS V not detected; does not exclude earlyacute or recovered HAV infection. ~Hepatitis B Surface Antibody REACTIVE Nonreactive [facility] Comment:REACTIVE: > 11.99 mI U/mL Hepatitis B Core Antibody Nonreactive Nonreactive [facility] Hepatitis C Antibody Nonreactive Nonreactive [facility] Comment:Antibodies to HCV no t detected; does not exclude early acuteHCV infection. Hepatitis B Surface Ag Negative Negative [facility] 03/08/2024 11:4 3 AM EDT 03/08/2024 11:43 AM EDT us Generic External Data Provider LAB BLOOD ORDERAB LES Final Result [facility] [address] [place] [address] [phone] * BI Mammogram Screening Tomosynthesis Bilateral (02/26/2024 9:15 AM EDT) Anatomical Region Laterality Modality Breast Bilateral Mammography 02/26/2024 9:15 AM EDT Narrative 03/28/2024 11:07 PM EDT ? [facility] ?[address] ?[place] [address] ? Mammography Report ? Signed ? Patient: Og,Karen M ?MR#: [id number] ?? 4 ? : 1970 ?Acct:[id number] ? Age/Sex: 53 / F ?ADM Date: 02/25/24 ? Loc: HO.US ? Attending Dr: Tammi Sorenson MD ? Ordering Physician: Tammi Burgess MD ?Re ?? sults: 1Negative ? Date of Service: 02/26/24 ?Follow Up: 1 Year From Orig ?? inal Mammogram ? Procedure(s): MM tomosynthesis screening BI ?? Accession Number(s): [id number] ? cc: Tammi Burgess MD ? EXAMINATION: [...] MD in OV> ? 03/28/242303 ? DD/ 4 ? TD/TT: 02/26/249[address] ? Dry Cans Back Tender: ? Procedure Note Donotuseinterpreter, Image - 03/28/[address] [address] Mammography Report Signed Patient: Karen Og MMR#: [id number] 4 : 1970Acct:[id number] Age/Sex: 53 / FADM Date: 02/26/24 Loc: .US Attending Dr: Tammi Sorenson MD Ordering Physician: Tammi Burgess sults: 1Negative Date of Service: 02/26/24Follow Up: 1 Year From Orig inal Mammogram Procedure(s): MM tomosynthesis screening BI Accession Number(s): [id number] cc: Tammi Burgess MD EXAMINATION: MM SCREENING [...] Herrera MD in OV> 03/28/24 2304 DD/ TD/TT: 02/26/2425 Dry Cans Back Tender: us Tammi Sorenson MD IMG BI PROCEDURES Final Result * HIV-1/2 Antigen and Antibodies, Fourth Generation, with Reflexes (12/05/2023 7:46 AM EDT) HIV AB/AG Nonreactive Nonreactive [facility] Comment:HIV-1 p24 Ag and/or HIV-1/HIV-2 Ab not detected.A test result that is nonreactive does not exclude thepossibility of exposure to or infection with HIV-1 and/orHIV-2. Nonreactive results in this assay for individualswith prior exposure to HIV-1 and/or HIV-2 may be due toantigen and antibody levels that are below the limit ofdetection of this assay.The [employer] HIV Ag/Ab Combo assay result andsupplemental assay results should be interpreted inconjunction with the patient's clinical presentation,history and other laboratory results. If the results areinconsistent with clinical evidence, additional testing issuggested to confirm the result. Blood Venous blood specimen / Unknown 12/05/2023 7:46 AM EDT 12/05/2023 7:46 AM EDT us Tammi Sorenson MD LAB BLOOD ORDERAB LES Final Result [facility] [address] [place] [phone] * Hemoglobin A1c (12/05/2023 7:46 AM EDT) Hemoglobin A1c 5.7 <6.0 % [facility] Comment:Hemoglobin A1C Refer ence Range Adults: 4.8 - 6.0 % Non diabetic: < 6.0 % Goal: < 7.0 %Additional Action Suggested: > 8.0 %Note: Hemoglobin A1c results are invalid for patients with abnormal amounts of HbF. Blood transfusions may impact the HbA1c concentration in the patient sample. Estimated Average Glucose 117 mg/dL [facility] Comment:eAG = Estimated ave rage glucose which is %A1C expressed asaverage glucose, using the formula of the I9X-NcjwlmxVlnwrrn Glucose study (ADAG), Diabetes Care, Vol.31,#8,Feb. 2007 Blood Venous blood specimen / Unknown 12/05/2023 7:46 AM EDT 12/05/2023 7:46 AM EDT us Tammi Sorenson MD LAB BLOOD ORDERAB LES Final Result Performing Organization Address [facility] Co de Phone Number [facility] [address] [place] [phone] * (ABNORMAL) Lipid Panel, Standard (12/05/2023 7:46 AM EDT) Triglycerides 144 <150 mg/dL [facility] Comment:Desirable Triglyceri de: less than 150 mg/dLBorderline High Triglyceride 150-199 mg/dLHigh Triglyceride: 200-499 mg/dLVery High Triglyceride: greater than or equal to 5OO mg/dL Cholesterol 200(H) <200 mg/dL [facility] Comment:Desirable Cholestero l: less than 200 mg/dLBorderline High Cholesterol: 200-239 mg/dLHigh Cholesterol: greater than 239 mg/dL LDL Cholesterol Calculated 121(H) <100 mg/dL [facility] Comment:Desirable LDL: less than 100 mg/dLNear Optimal/Above Optimal LDL: 110- 129 mg/dLBorderline High LDL: 130-159 mg/dLHigh LDL: 160-189 mg/dLVery High LDL: greater than or equal to 190 mg/dL HDL Cholesterol 51 >40 mg/dL [facility] Comment:Desirable HDL: great er than 40 mg/dL Note: This HDL assay may give artificially low results in patients with liver disease. Blood Venous blood specimen / Unknown 12/05/2023 7:46 AM EDT 12/05/2023 7:46 AM EDT us Tammi Sorenson MD LAB BLOOD ORDERAB LES Final Result Performing Organization Address City/[facility]/ZIP Co de Phone Number [facility] [address] [place] [address] [phone] * Hm Colonoscopy (05/28/2022 1:55 PM EDT) us Historical Provider HEALTH MAINTENANCE Final Result * HPV E6/E7 RFLX JACOB 16 18/45 (08/15/2021 1:40 PM EST) Pathologist [facility] HPV 16 RNA [facility] HPV 18/45 RNA [facility] HPV E6 E7 ADD [facility] HPV mRNA E6/E7 rflx Not Detected Not Detected [facility] Comment: Methodology: Theatrical Performer-Mediated Amplification This assay detects E6/E7 viral messenger RNA (mRNA) from 14 high-risk HPV types (16,18,31,33,35,39,45,51,52,56,58,59,66,68). The analytical performance characteristics of this assay have been determined by [employer]. The modifications have not been cleared or approved by the FDA. This assay has been validated pursuant to the CLIA regulations and is used for clinical purposes. For additional information, please refer to http://education.[employer]/faq/AKC565x9 (This link if provided for information/ educational purposes only.) THIS TEST WAS PERFORMED AT: [employer] [address] [facility] [address] [place], [place] ??[phone] AMY BLANCAS MD 08/15/2021 1:40 PM EST us Historical Provider HISTORICAL/NON ORDERABLE LABS Final Result [facility] [address] * THINPREP PAP (01/11/2021 11:51 AM EDT) Pathologist [facility] Clinical Information: None given [facility] COMMENT SEE COMMENT [facility] [...] historic and ?? current clinical information. ?? Medical Records Tech : SEE COMMENT [facility] Comment: GSG, CT(ASCP) CT screening location: [address] ??[address] Interpretation/R esult: Negative for intraepithelial lesion or [...] Provider MD LAB PATHOLOGY ORDERABLES Final Result Performing Organization Address City/State/[facility] Co de Phone Number [facility] [address] from Last 3 Months or Most Recently Relevant to Health Maintenance Insurance [facility] FULL [facility] GOLD DENTAL - HSN FULL (MEDICAID) Care Teams Senior Software Tester Relationship Specialty Start Date End Date Tammi Burgess MD [address] [place] [address] PCP - General Internal Medicine 04/13/23
--- OUTSIDE RECORDS SUMMARY | 2024-09-20 19:21 | XMS_ITS | Encounter Summary ---
Author Organization [employer] Address [address] [place] [address] [address] [place] [address] Care Team Providers Care Plywood Layup Line Back Feeder Name Role Phone Tammi Burgess MD Primary Care Pro vider Reason for Visit * Reason Onset Date Comments Nurse Triage 07/16/2023 Encounter Details Date Type Department Care Team ([facility] st Contact Info) Description 07/16/2023 Telephone [facility] [address] [place] [address] Tammi Burgess MD [address] [place] [address] Nurse Triage Social History Tobacco Use Types [...] 07/16/2023 4:32 PM EST Triage call with [place] Sheet Metal Pattern Cutter ID [id number] Pt requests for Pt to speak for Pt. Pt has acute right knee pain. Pt has been seen in [facility] 07/09/23. Pt was prescribed tylenol 500mg, brace, voltaren gel and xrays. Xrays have been done. Pt isasking what xray results are movie writer advised that there is evidence of [...] Description 10/21/2024 2:00 PM EDT Office Visit [facility] [address] [place] [address] Jamey Hussein, DMD [address] [place], [place] [phone] 12/21/2024 3:00 PM EDT Office Visit [facility] [address] [place] [address] Bozena Rader [address] [place] [address] documented as of this encounter Visit Diagnoses Not on filedocumented in this encounter Care Teams Plywood Layup Line Back Feeder Relationship Specialty Start Date End Date Tammi Burgess MD [address] [place] [address] PCP - General Internal Medicine 04/13/23 documented as of this encounter
--- OUTSIDE RECORDS SUMMARY | 2024-09-20 19:21 | XMS_ITS | Encounter Summary ---
Author Organization [employer] Address [address] [facility] 7t [place] [address] Care Team Providers Care Sleeve Ironer Name Role Phone Tammi Burgess MD Primary Care Pro vider Encounter Details Date Type Department Care Team (Late st Contact Info) Description 08/06/2023 Orders Only [facility] [address] [place], [place] [phone] Judy Prieto MD [address] [place], [place] [phone] Acute pain of right knee (Primary Dx); [...] Description 10/21/2024 2:00 PM EDT Office Visit [facility] [address] [place] [address] Jamey Hussein, DMD [address] [place] [address] 12/21/2024 3:00 PM EDT Office Visit [facility] [address] [place] [address] Prasanth, Bozena [address] [place] [address] documented as of this encounter Visit Diagnoses Diagnosis Acute pain of right knee- Primary Effusion of right knee Dislocation of right knee with medial meniscus tear, initial encounter documented in this encounter Additional Health Concerns Assessment Noted Time PHQ-9 Depression Total Score: 0 07/23/20 11:15 AM EST documented as of this encounter Care Teams Sleeve Ironer Relationship Specialty Start Date End Date Tammi Burgess MD [address] [place] [address] PCP - General Internal Medicine 04/13/23 documented as of this encounter
--- OUTSIDE RECORDS SUMMARY | 2024-09-20 19:21 | XMS_ITS | Encounter Summary ---
Author Organization [employer] Address [address] [place] [address] [address] [address] Care Team Providers Care Mercury Cell Cleaner Name Role Phone Charito Lawrence Yue GARZA Primary Care Provider [phone] Tammi Burgess MD Primary Care Pro vider Encounter Details Date Type Department Care Team (Late st Contact Info) Description 03/31/2023 Abstract [facility]ULT [facility] [address] [place], [place] [phone] Jamey Hussein, JUDITH [address] [place] [address] Social History Tobacco Use Types Packs/Day Years [...] Description 10/21/2024 2:00 PM EDT Office Visit [facility] [address] [place], [place] [phone] Jamey Hussein, DMD [address] [place], [place] [phone] 12/21/2024 3:00 PM EDT Office Visit [facility] ADULT [facility] [address] [place], [place] [phone] Bozena Rader [address] [place], [place] [phone] documented as of this encounter Visit Diagnoses Not on filedocumented in this encounter Care Teams Mercury Cell Cleaner Relationship Specialty Start Date End Date Charito Lawrence FNP PCP - General Family Medicine 05/17/21 04/12/23 Tammi Burgess MD [address] [place], [place] [phone] PCP - General Internal Medicine 04/13/23 documented as of this encounter
--- OUTSIDE RECORDS SUMMARY | 2024-09-20 19:21 | XMS_ITS | Encounter Summary ---
Author Organization [employer] Address [address] [facility] 7t [place] [address] Care Team Providers Care Rolls Mill Operator Name Role Phone Tammi Burgess MD Primary Care Pro vider Encounter Details Date Type Department Care Team ([facility] st Contact Info) Description 07/18/2024 Orders Only [facility] [address] [place], [place] [phone] ProviderChata MD Social History Tobacco Use Types [...] 1:55 PM EST Pelvic US ordered by EARLY CHILDHOOD WORKER. Patient to fu results with EARLY CHILDHOOD WORKER (Dr Espinoza). documented in this encounter Plan of Treatment Upcoming Encounters Date Type Department Care Team (Late st Contact Info) Description 10/21/2024 2:00 PM EDT Office Visit [facility] [address] [place] [address] Jamey Hussein, DMD [address] [place] [address] 12/21/2024 3:00 PM EDT Office Visit [facility]ULT [facility] [address] [place] [address] Prasanth, Bozena [address] [place] [address] documented as of this encounter Procedures Procedure [...] EST Narrative 08/09/2024 10:56 AM EST ? [facility] ?[address] ?[place] [address] ? Magnetic Resonance Report ? Signed ? Patient: Og,Karen M ?MR#: [id number] ?? 4 ? : 1970 ?Acct:[id number] ? Age/Sex: 54 / F ?ADM Date: 08/07/24 ? Loc: HO.MRI ? Attending Dr: Keyon Bowles MD ? Ordering Physician: Keyon Bowles MD ?? Date of Service: 08/07/24 ?? Procedure(s): MR knee LT wo con ?? Accession Number(s): [id number] ? cc: Tammi Burgess MD; Keyon Bowles [...] DD/ 1458 ? TD/TT: 08/07/24 1507 ? Hat Steamer: ? Procedure Note Pariter, Image - 08/09/2024 [place] [address] Magnetic Resonance Report Signed Patient: Karen Og MMR#: [id number] 4 : 1970Acct:[id number] Age/Sex: 54 / FADM Date: 08/07/24 Loc: HO.MRI Attending Dr: Keyon Bowles MD Ordering Physician: Keyon Bowles MD Date of Service: 08/07/24 Procedure(s): MR knee LT wo con Accession Number(s): [id number] cc: Tammi Burgess MD; Keyon Bowles MD [...] 08/09/24 1053 DD/ 1458 TD/TT: 08/07/24 1507 Hat Steamer: [facility] External Provider IMG MRI PROCEDURES Final Result * US Pelvis Transvaginal (08/02/2024 4:26 PM EST) Anatomical Region Laterality Modality Pelvis Ultrasound 08/02/2024 4:26 PM EST Narrative 08/02/2024 4:27 PM EST ? [facility] ?[address] ?[place] [address] ? Ultrasound Report ? Signed ? Patient: Og,Karen M ?MR#: [id number] ?? 4 ? : 1970 ?Acct:[id number] ? Age/Sex: 54 / F ?ADM Date: 01/06/25 ? Loc: HO.US ? Attending Dr: Juan Espinoza MD ? Ordering Physician: Juan Espinoza MD ?? Date of Service: 08/01/24 ?? Procedure(s): US pelvic and transvaginal ?? Accession Number(s): [id number] ? cc: Tammi Burgess MD; Juan Espinoza MD ? CLINICAL HISTORY: D25.9 - Leiomyoma of uterus, unspecified ? US pelvis transabdominal and transvaginal ? Comparison: [place] - US PELVIC AND TRANSVAGINAL - 09/28/23 [...] DD/ 1626 ? TD/TT: 08/02/24 1626 ? Hat Steamer: ? Procedure Note Olu Banuelos - 08/02/2024 [place] [address] [place] [address] Ultrasound Report Signed Patient: Karen Og [facility]#: [id number] 4 : 1970Acct:[id number] Age/Sex: 54 / FADM Date: 08/01/24 Loc: HO.US Attending Dr: Juan Espinoza MD Ordering Physician: Juan Espinoza MD Date of Service: 08/01/24 Procedure(s): US pelvic and transvaginal Accession Number(s): [id number] cc: Tammi Buregss MD; Juan Espinoza MD CLINICAL HISTORY: D25.9 - Leiomyoma of uterus, unspecified US pelvis transabdominal and transvaginal Comparison: [place] - US PELVIC AND TRANSVAGINAL - 09/28/23 [...] in OV> 08/02/24 1626 DD/ 25 TD/TT: 08/02/24 1626 Hat Steamer: [facility] External Provider IMG US PROCEDURES Final Result * Hm Colonoscopy (05/28/2022 1:55 PM EDT) Historical Provider HEALTH MAINTENANCE Final Result documented in this encounter Visit Diagnoses Not on filedocumented in this encounter Additional Health Concerns Assessment Noted Time PHQ-9 Depression Total Score: 5 10/20/19 24 10:39 AM EDT documented as of this encounter Care Teams Rolls Mill Operator Relationship Specialty Start Date End Date Tammi Burgess MD [address] [place] [phone] PCP - General Internal Medicine 04/13/23 documented as of this encounter
--- OUTSIDE RECORDS SUMMARY | 2024-09-20 19:21 | XMS_ITS | Encounter Summary ---
Author Organization [employer] Address [address] [facility] [address] [facility] [address] [place] [address] Care Team Providers Care Word Processing Operator Name Role Phone Tammi Burgess MD [...] t he electric, gas, oil or water [facility] threatened to shut off services in your [...] Description 10/21/2024 2:00 PM EDT Office Visit [facility]ULT [facility] [address] [place], [place] [phone] Jamey Hussein, DMD [address] [place] [address] 12/21/2024 3:00 PM EDT Office Visit [facility] ADULT D[facility]AL [address] [place] [address] Prasanth Bozena [address] [place] [address] documented as of this encounter Procedures Procedure Name Priority Date/Time Associated Diagnosis Comments HEMATOXYLIN AND EOSIN STAIN Routine 08/29/2024 4:03 PM EST documented in this encounter Results * Hematoxylin and Eosin Stain (08/29/2024 4:03 PM EST) 08/29/2024 4:03 PM EST 08/30/2024 7:40 AM EST [facility] - 08/31/2024 12:42 PM EST ----- ------- Name: Karen Og ?Age/Sex: 54/F ? : 1970 Unit#: [id number] ?? Attend Dr: Juan Espinoza MD ?Re08/29/24 ?Status: DEP REF ? Location: HO.LNP ?Disch: ? ----- ------- SPEC : [id number] ?RECD: 08/30/24 ? STATUS: ??SOUT ? REQ NUM: [id number] ? MORGAN: 08/29/24-1602 ? SUBM DR: Juan Espinoza MD ? [...] To: ?? Tammi Burgess MD ?? [address] [facility] ?? [place] [address] ?? [phone] ?? Juan Espinoza MD ?? [facility] [place] [facility] ?? [address] ?? [place] [address] ?? [phone] ----- ------- Signed (signature on file) Katlyn Viveros 08/31/242 ? ----- ------- ? END OF REPORT ? us Generic External Data Provider LAB BLOOD ORDERAB LES Final Result [facility] [address] [place] [address] [phone] documented in this encounter Visit Diagnoses Not on filedocumented in this encounter Additional Health Concerns Assessment Noted Time PHQ-9 Depression Total Score: 5 10/20/19 24 10:39 AM EDT documented as of this encounter Care Teams Word Processing Operator Relationship Specialty Start Date End Date Tammi Burgess MD [address] [place] [address] PCP - General Internal Medicine 04/13/23 documented as of this encounter
--- OUTSIDE RECORDS SUMMARY | 2024-09-20 19:21 | XMS_ITS | Encounter Summary ---
Author Organization [facility] Address [address] [place] [address] [address], [place] [address] Care Team Providers Care Security Technician Name Role Phone Howard Charito GARZA Primary Care Provider [phone]- [phone] Tammi Burgess MD Primary Care Pro vider Encounter Details Date Type Department Care Team (Latest Contact Info) Description 07/29/2018 Abstract [facility] CONVERSIONS Dental, Provider, DDS Social History Tobacco [...] Description 10/21/2024 2:00 PM EDT Office Visit [facility] ADULT D[facility] [address] [place] [address] Jamey Hussein, JUDITH [address] [place] [address] 12/21/2024 3:00 PM EDT Office Visit [facility] ADULT DENTAL [address] [place] [address] Bozena Rader [address] [place] [address] documented as of this encounter Visit Diagnoses Not on filedocumented in this encounter Care Teams Security Technician Relationship Specialty Start Date End Date Charito Lawrence FNP PCP - General Family Medicine 05/17/21 04/12/23 Tammi Burgess MD [address] [place] [id number] PCP - General Internal Medicine 04/13/23 documented as of this encounter
--- OUTSIDE RECORDS SUMMARY | 2024-09-20 19:21 | XMS_ITS | Encounter Summary ---
Author Organization [employer] Address [address] [facility] 7[address] [place] [address] Care Team Providers Care Senior Mechanical Design Engineer Name Role Phone Tammi Burgess MD Primary Care Pro vider Reason for Visit * Reason Comments Med Refill Encounter Details Date Type Department Care Team ([facility] st Contact Info) Description 08/11/2024 Refill [facility] [address] [place] [address] Tammi Burgess MD [address] [place] [address] Social History Tobacco Use Types Packs/Day Years [...] 2:00 PM EDT Office Visit [facility]ULT [facility] [address] [place], [place] [phone] Jamey Hussein, DMD [address] [place] [address] 12/21/2024 3:00 PM EDT Office Visit [facility] ADULT DENTAL [address] [place] [address] Prasanth Bozena [address] [place] [address] documented as of this encounter Visit Diagnoses Not on filedocumented in this encounter Additional Health Concerns Assessment Noted Time PHQ-9 Depression Total Score: 5 10/20/19 24 10:39 AM EDT documented as of this encounter Care Teams Senior Mechanical Design Engineer Relationship Specialty Start Date End Date Tammi Burgess MD [address] [place] [address] PCP - General Internal Medicine 04/13/23 documented as of this encounter
== END 2024-09-20 16:21 | disposition home or self-care (01) ==
PROVIDERS: PCP Student in an Organized Health Care Education/Training Program; Visit Provider Student in an Organized Health Care Education/Training Program
DX: M54.50 Low back pain, unspecified (principal); G89.29 Other chronic pain; M17.0 Bilateral primary osteoarthritis of knee
CPT/HCPCS: 99213; G2211

== ENCOUNTER → 2024-09-20 15:35 | Outpatient (BNVA) | payer OTHER, SELFPAY | PROVIDERS: PCP Student in an Organized Health Care Education/Training Program; Visit Provider Student in an Organized Health Care Education/Training Program | DX: M54.50 Low back pain, unspecified (principal); G89.29 Other chronic pain; M17.0 Bilateral primary osteoarthritis of knee; M46.90 Unspecified inflammatory spondylopathy, site unspecified; M47.816 Spondylosis without myelopathy or radiculopathy, lumbar region | CPT/HCPCS: 99212 ==

== ENCOUNTER 2024-10-01 10:13 | Outpatient (REF) | payer OTHER, SELFPAY ==
--- NOTE | ~2024-10-01 | MR_ITS ---
CLINICAL HISTORY: M46.90 - Unspecified inflammatory spondylopathy, site unspecified Examination: MRI lumbar spine without intravenous contrast Comparison: CT/NH/SR - CT LUMBAR SPINE WO IV CON - 04/08/23 16:26 EDT CR - LUMBAR SPINE 2TO 3 [id number] - 07/24/14 10:54 EST Findings: Plain radiograph correlation: developed non rib-bearing lumbar vertebra was demonstrated. There is probable lumbarization of S1 vertebra with pseudoarthrosis on the left. Plain radiographs from clivus through sacrum is recommended for proper vertebral count before intervention is considered. The lumbar spine is anatomic in alignment and demonstrates a normal anatomic lordotic curvature. The vertebral body heights are well maintained. No acute or chronic compression deformities are present. The marrow signal is unremarkable. The anterior posterior longitudinal ligament and interspinous ligament are preserved. Paravertebral soft tissues within normal limits. Imaged portion of the retroperitoneum unremarkable. Sacroiliac joints appear normal. The conus demonstrates normal caliber and signal intensity and terminates at L1-L2 disc level. Individual intervertebral disc levels as follows: L1-L2: Normal disc height and signal with no discogenic changes. No disc bulge protrusion or extrusion. No central or foraminal stenosis or thecal sac compression. Normal posterior elements. L2-L3: Normal disc height and signal with no discogenic changes. No disc bulge protrusion or extrusion. No central or foraminal stenosis or thecal sac compression. Normal posterior elements. L3-L4: Normal disc height and signal with no discogenic changes. Mild disc bulge. No central or foraminal stenosis or thecal sac compression. Normal posterior elements. L4-L5: Normal disc height and signal with no discogenic changes. Posterior annular tear with mild disc bulge No central or foraminal stenosis or thecal sac compression. Degenerative facet hypertrophy L5-S1: Normal disc height and signal with no discogenic changes. Posterior annular tear with mild disc bulge No central or foraminal stenosis or thecal sac compression. Degenerative facet hypertrophy T12-L1: Normal disc height and signal with no discogenic changes. No disc bulge protrusion or extrusion. No central or foraminal stenosis or thecal sac compression. Normal posterior elements. Impression: 1. No vertebral body compression fractures or spondylolisthesis 2. Suspect transitional vertebra as described plain radiograph correlation from clivus through sacrum is recommended prior to any intervention 3. Mild disc bulge and degenerative facet hypertrophy lower lumbar vertebra but no significant central or foraminal stenosis. No nerve root impingement. This document has been electronically signed by: Efren Baca MD on 10/03/2024 11:14:41
--- OUTSIDE RECORDS SUMMARY | 2024-10-01 10:17 | XMS_ITS | Encounter Summary ---
Author Organization [employer] Address [address] [facility] 7t [place] [address] Care Team Providers Care Pest Locator Name Role Phone Tammi Burgess MD Primary Care Pro vider Encounter Details Date Type Department Care Team (Late st Contact Info) Description 08/06/2023 Orders Only [facility] [address] [place], [place] [phone] Judy Prieto MD [address] [place], [place] [phone] Acute pain of right knee (Primary Dx); [...] 10/21/2024 2:00 PM EDT Office Visit [facility] [address] [place] [address] Jamey Hussein, DMD [address] [place] [address] 12/21/2024 3:00 PM EDT Office Visit [facility] [address] [place] [address] Prasanth, Bozena [address] [place] [address] documented as of this encounter Visit Diagnoses Diagnosis Acute pain of right knee- Primary Effusion of right knee Dislocation of right knee with medial meniscus tear, initial encounter documented in this encounter Additional Health Concerns Assessment Noted Time PHQ-9 Depression Total Score: 0 07/23/20 11:15 AM EST documented as of this encounter Care Teams Pest Locator Relationship Specialty Start Date End Date Tammi Burgess MD [address] [place] [address] PCP - General Internal Medicine 04/13/23 documented as of this encounter
--- OUTSIDE RECORDS SUMMARY | 2024-10-01 10:17 | XMS_ITS | Encounter Summary ---
Author Organization [employer] Address [address] [place] [address] [address] [place] [address] Care Team Providers Care Antique Refinisher Name Role Phone Tammi Burgess MD Primary Care Pro vider Reason for Visit * Reason Onset Date Comments Nurse Triage 07/16/2023 Encounter Details Date Type Department Care Team ([facility] st Contact Info) Description 07/16/2023 Telephone [facility] [address] [place] [address] Tammi Burgess MD [address] [place] [address] Nurse Triage Social History Tobacco Use Types [...] 07/16/2023 4:32 PM EST Triage call with [place] [employer] [place] [id number] Pt requests for Pt to speak for Pt. Pt has acute right knee pain. Pt has been seen in [facility] 07/09/23. Pt was prescribed tylenol 500mg, brace, voltaren gel and xrays. Xrays have been done. Pt isasking what xray results are advertising copy writer advised that there is evidence of [...] Description 10/21/2024 2:00 PM EDT Office Visit [facility] ADULT D[facility] [address] [place] [address] Jamey Hussein, DMD [address] [place], [place] [phone] 12/21/2024 3:00 PM EDT Office Visit [facility] ADULT D[facility] [address] [place] [address] Bozena Rader [address] [place] [address] documented as of this encounter Visit Diagnoses Not on filedocumented in this encounter Care Teams Antique Refinisher Relationship Specialty Start Date End Date Tammi Burgess MD [address] [place] [address] PCP - General Internal Medicine 04/13/23 documented as of this encounter
--- OUTSIDE RECORDS SUMMARY | 2024-10-01 10:17 | XMS_ITS | Encounter Summary ---
Author Organization [employer] Address [address] [facility] 7[address] [place] [address] Care Team Providers Care Social Media Editor Name Role Phone Tammi Burgess MD Primary Care Pro vider Encounter Details Date Type Department Care Team ([facility] st Contact Info) Description 07/18/2024 Orders Only [facility] [address] [place], [place] [phone] ProviderChata MD Social History Tobacco Use Types [...] 1:55 PM EST Pelvic US ordered by INFRASTRUCTURE ARCHITECT. Patient to fu results with INFRASTRUCTURE ARCHITECT (Dr Espinoza). documented in this encounter Plan of Treatment Upcoming Encounters Date Type Department Care Team (Late st Contact Info) Description 10/21/2024 2:00 PM EDT Office Visit [facility] ADULT [facility] [address] [place] [address] Jamey Hussein, DMD [address] [place] [address] 12/21/2024 3:00 PM EDT Office Visit [facility] ADULT D[facility] [address] [place] [address] Prasanth, Bozena [address] [place] [address] documented as of this encounter Procedures Procedure [...] EST Narrative 08/09/2024 10:56 AM EST ? [facility] ?[address] ?[place] [address] ? Magnetic Resonance Report ? Signed ? Patient: Og,Karen M ?MR#: [id number] ?? 4 ? : 1970 ?Acct:[id number] ? Age/Sex: 54 / F ?ADM Date: 08/07/24 ? Loc: HO.MRI ? Attending Dr: Keyon Bowles MD ? Ordering Physician: Keyon Bowles MD ?? Date of Service: 08/07/24 ?? Procedure(s): MR knee LT wo con ?? Accession Number(s): [id number] ? cc: Tammi Burgess MD; Keyon Bowles [...] DD/ 1458 ? TD/TT: 08/07/24 1507 ? Repairer Handtools: ? Procedure Note Pariter, Image - 08/09/2024 [place] [address] Magnetic Resonance Report Signed Patient: Karen Og MMR#: [id number] 4 : 1970Acct:[id number] Age/Sex: 54 / FADM Date: 08/07/24 Loc: HO.MRI Attending Dr: Keyon Bowles MD Ordering Physician: Keyon Bowles MD Date of Service: 08/07/24 Procedure(s): MR knee LT wo con Accession Number(s): [id number] cc: Tammi Burgess MD; Keyon Bowles MD [...] 08/09/24 1053 DD/ 1458 TD/TT: 08/07/24 1507 Repairer Handtools: [facility] External Provider IMG MRI PROCEDURES Final Result * US Pelvis Transvaginal (08/02/2024 4:26 PM EST) Anatomical Region Laterality Modality Pelvis Ultrasound 08/02/2024 4:26 PM EST Narrative 08/02/2024 4:27 PM EST ? [facility] ?[address] ?[place] [address] ? Ultrasound Report ? Signed ? Patient: Og,Karen M ?MR#: [id number] ?? 4 ? : 1970 ?Acct:[id number] ? Age/Sex: 54 / F ?ADM Date: 01/06/25 ? Loc: HO.US ? Attending Dr: Juan Espinoza MD ? Ordering Physician: Juan Espinoza MD ?? Date of Service: 08/01/24 ?? Procedure(s): US pelvic and transvaginal ?? Accession Number(s): [id number] ? cc: Tammi Burgess MD; Juan Espinoza MD ? CLINICAL HISTORY: D25.9 - Leiomyoma of uterus, unspecified ? US pelvis transabdominal and transvaginal ? Comparison: US/ID/SR - US PELVIC AND TRANSVAGINAL - 09/28/23 [...] DD/ 1626 ? TD/TT: 08/02/24 1626 ? Repairer Handtools: ? Procedure Note Olu Banuelos - 08/02/2024 [place] [id number] [place] [address] Ultrasound Report Signed Patient: Karen Og [facility]#: [id number] 4 : 1970Acct:[id number] Age/Sex: 54 / FADM Date: 08/01/24 Loc: HO.US Attending Dr: Juan Espinoza MD Ordering Physician: Juan Espinoza MD Date of Service: 08/01/24 Procedure(s): US pelvic and transvaginal Accession Number(s): [id number] cc: Tammi Burgess MD; Juan Espinoza MD CLINICAL HISTORY: D25.9 - Leiomyoma of uterus, unspecified US pelvis transabdominal and transvaginal Comparison: US/ID/SR - US PELVIC AND TRANSVAGINAL - 09/28/23 [...] 08/02/24 1626 DD/ 25 TD/TT: 08/02/24 1626 Repairer Handtools: [facility] External Provider IMG US PROCEDURES Final Result * Hm Colonoscopy (05/28/2022 1:55 PM EDT) Historical Provider HEALTH MAINTENANCE Final Result documented in this encounter Visit Diagnoses Not on filedocumented in this encounter Additional Health Concerns Assessment Noted Time PHQ-9 Depression Total Score: 5 10/20/19 24 10:39 AM EDT documented as of this encounter Care Teams Social Media Editor Relationship Specialty Start Date End Date Tammi Burgess MD [address] [place] [address] PCP - General Internal Medicine 04/13/23 documented as of this encounter
--- OUTSIDE RECORDS SUMMARY | 2024-10-01 10:17 | XMS_ITS | Clinical Summary ---
Author Organization [employer] Address [address] [place] [address] 7t [place] [address] Care Team Providers Care Proj Engineer Name Role Phone Tammi Burgess MD [...] cancer: Never smoker Eye: 02/2023 WNL at [facility] Dental: up to date Hernia of [...] AM, 2 capsules PM Depakote lab level WNIsaiah Has had multiple seizures, none in the [...] Orders Only GENERIC EXTERNAL DATA DEPARTMENT Provider, [facility] External Data 08/11/2024 Refill [facility] MEDICINE [address] [place] [address] Tammi Burgess MD 07/26/2024 Telephone [facility] MEDICINE [address] [place] [address] Tammi Burgess MD Prior Authorization (Weg[employer] to [employer]) 07/25/2024 Refill [facility] PEDS [address] [place] [address] Tammi Burgess MD 07/18/2024 Orders Only [facility] MEDICINE [address] [place] [address] ProviderChata MD 07/13/2024 Refill [facility] MEDICINE [address] [place] [address] Tammi Burgess MD 07/03/2024 Refill [facility] MEDICINE [address] [place], [place] [phone] Tammi Burgess MD from Last 3 Months Immunizations Name Administration [...] 10/21/2024 2:00 PM EDT Office Visit [facility] [address] [place], [place] [phone] Jamey Hussein, DMD [address] [place] [address] 12/21/2024 3:00 PM EDT Office Visit [facility] ADULT DENTAL [address] [place] [address] Prasanth, Bozena [address] [place] [address] Health Maintenance Due Date Last Done Comments CT Colonography 1970 FIT DNA/Cologuard 1970 FIT 1970 FOBT 1970 Sigmoidoscopy 1970 Diabetes: Foot Exam 1980 Eye Exam 1980 Diabetes: Urine Protein Screening 1989 Pneumococcal Vaccine: 50+ Years (1 of 2 - PCV) 1989 Diabetes: Hemoglobin A1C 03/06/2024 024, 02/07/2023, 02/22/2022 COVID-19 Vaccine ( season) 2024 10/29/2021, 11/02/2020 Influenza Vaccine (#1) 2024 07/28/2018 Dental Oral Exam 09/18/2024 03/17/2024, , 07/28/2018 SDOH Screening 10/12/2024 10/13/2023 Depression Screening 10/19/2024 10/20/2023, 10/20/19 24 Lipid Panel 12/04/2024 12/05/2023, 07/1 11/2022, 10/18/2022 Dental X-Ray: Bitewings 12/15/2024 12/15/19, 02/19/2023, 07/28/2018 Dental Prophylaxis 12/16/2024 06/17/2024, 0 [...] caries associated with failed or defective dental hinduism Full coverage crown needed for root canal-treated [...] PM EST 08/30/2024 7:40 AM EST Narrative [facility] - 08/31/2024 12:42 PM EST ----- ------- Name: Karen Og ?Age/Sex: 54/F ? : 1970 Unit#: [id number] ?? Attend Dr: Juan Espinoza MD ?Re08/29/24 ?Status: DEP REF ? Location: HO.LNP ?Disch: ? ----- ------- SPEC : [id number] ?RECD: 08/30/24-739 ? STATUS: ??SOUT ? REQ NUM: [id number] ? MORGAN: 08/29/24-1603 ? SUBM DR: Juan Espinoza MD ? ENTERED: ??08/30/24-803 ?SP TYPE: Surgical ? OTHR DR: Tammi [...] To: ?? Tammi Burgess MD ?? [address] [facility] ?? [place] [address] ?? [phone] ?? Juan Espinoza MD ?? [facility] ?? [address] ?? [place] [address] ?? [phone] ----- ------- Signed (signature on file) Katlyn Viveros 08/31/24 1242 ? ----- ------- ? END OF REPORT ? us Generic External Data Provider LAB BLOOD ORDERAB LES Final Result [facility] [address] [place] [address] [phone] * MR Knee w/o Contrast Left (08/07/2024 2:58 PM EST) Anatomical Region Laterality Modality Magnetic Resonan ce 08/07/2024 2:58 PM EST Narrative 08/09/2024 10:56 AM EST ? [facility] ?[address] ?[place] [address] ? Magnetic Resonance Report ? Signed ? Patient: Karen Og ?MR#: [id number] ?? 4 ? : 1970 ?Acct:[id number] ? Age/Sex: 54 / F ?ADM Date: 08/07/24 ? Loc: HO.MRI ? Attending Dr: Keyon Bowles MD ? Ordering Physician: Keyon Bowles MD ?? Date of Service: 08/07/24 ?? Procedure(s): MR knee LT wo con ?? Accession Number(s): [id number] ? cc: Tammi Burgess MD; Keyon Bowles [...] DD/ 1458 ? TD/TT: 08/07/24 1507 ? Jewel Sorter: ? Procedure Note Olu Banuelos - 08/09/[address] [address] Magnetic Resonance Report Signed Patient: Carson Ogna [facility]#: [id number] 4 : 1970Acct:[id number] Age/Sex: 54 / FADM Date: 08/07/24 Loc: HO.MRI Attending Dr: Keyon Bowles MD Ordering Physician: Keyon Bowles MD Date of Service: 08/07/24 Procedure(s): MR knee LT wo con Accession Number(s): [id number] cc: Tammi Burgess MD; Keyon Bowles MD [...] MD 08/09/2024 10:53 AM EST Dictated By: Gucci Novak MD Signed By: <Electronically signed by Gucci Novak MD in OV> 08/09/24 1053 DD/ 1458 TD/TT: 08/07/24 1507 Jewel Sorter: [facility] External Provider IMG MRI PROCEDURES Final Result * US Pelvis Transvaginal (08/02/2024 4:26 PM EST) Anatomical Region Laterality Modality Pelvis Ultrasound 08/02/2024 4:26 PM EST Narrative 08/02/2024 4:27 PM EST ? [facility] ?[address] ?[place], [place] [address] ? Ultrasound Report ? Signed ? Patient: Og,Karen M ?MR#: [id number] ?? 4 ? : 1970 ?Acct:[id number] ? Age/Sex: 54 / F ?ADM Date: 08/01/24 ? Loc: HO.US ? Attending Dr: Juan Espinoza MD ? Ordering Physician: Juan Espinoza MD ?? Date of Service: 08/01/24 ?? Procedure(s): US pelvic and transvaginal ?? Accession Number(s): [id number] ? cc: Tammi Burgess MD; Juan Espinoza MD ? CLINICAL HISTORY: D25.9 - Leiomyoma of uterus, unspecified ? US pelvis transabdominal and transvaginal ? Comparison: US/MI/SR - US PELVIC AND TRANSVAGINAL - 09/28/23 [...] by Yeni Hutchison MD in OV> ? 08/02/246 ? DD/ 1626 ? TD/TT: 08/02/24 1626 ? Jewel Sorter: ? Procedure Note Donotfunmiter, Image - 08/02/2024 [place] [address] Ultrasound Report Signed Patient: Karen Og MMR#: [id number] 4 : 1970Acct:[id number] Age/Sex: 54 / FADM Date: 08/01/24 Loc: HO.US Attending Dr: Juan Espinoza MD Ordering Physician: Juan Espinoza MD Date of Service: 08/01/24 Procedure(s): US pelvic and transvaginal Accession Number(s): [id number] cc: Tammi Burgess MD; Juan Espinoza MD CLINICAL HISTORY: D25.9 - Leiomyoma of uterus, unspecified US pelvis transabdominal and transvaginal Comparison: US/MI/SR - US PELVIC AND TRANSVAGINAL - 09/28/23 [...] 08/02/24 1626 DD/ 1626 TD/TT: 08/02/24 1626 Jewel Sorter: [facility] External Provider IMG US PROCEDURES Final Result * Hepatitis Panel, General (03/08/2024 11:43 AM EDT) Hepatitis A IgM Nonreactive Nonreactive [facility] Comment:IgM antibodies to LEMUS V not detected; does not exclude earlyacute or recovered HAV infection. ~Hepatitis B Surface Antibody REACTIVE Nonreactive [facility] Comment:REACTIVE: > 11.99 mI U/mL Hepatitis B Core Antibody Nonreactive Nonreactive [facility] Hepatitis C Antibody Nonreactive Nonreactive [facility] Comment:Antibodies to HCV no t detected; does not exclude early acuteHCV infection. Hepatitis B Surface Ag Negative Negative [facility] 03/08/2024 11:4 3 AM EDT 03/08/2024 11:43 AM EDT Generic External Data Provider LAB BLOOD ORDERAB LES Final Result [facility] [address] [place] [address] [phone] * BI Mammogram Screening Tomosynthesis Bilateral (02/26/2024 9:15 AM EDT) Anatomical Region Laterality Modality Breast Bilateral Mammography 02/26/2024 9:15 AM EDT Narrative 03/28/2024 11:07 PM EDT ? [facility] ?[address] ?[place] [address] ? Mammography Report ? Signed ? Patient: Og,Karen M ?MR#: [id number] ?? 4 ? : 1970 ?Acct:[id number] ? Age/Sex: 53 / F ?ADM Date: 02/26/24 ? Loc: HO.US ? Attending Dr: Tammi Sorenson MD ? Ordering Physician: Tammi Burgess MD ?Re ?? sults: 1Negative ? Date of Service: 02/26/24 ?Follow Up: 1 Year From Orig ?? inal Mammogram ? Procedure(s): MM tomosynthesis screening BI ?? Accession Number(s): [id number] ? cc: Tammi Burgess MD ? EXAMINATION: [...] ? DD/ 4 ? TD/TT: 02/26/[address] ? Jewel Sorter: ? Procedure Note Oul Banuelos - 03/28/[address] [address] Mammography Report Signed Patient: Karen Og MMR#: [id number] 4 : 1970Acct:[id number] Age/Sex: 53 / FADM Date: 02/26/24 Loc: HO.US Attending Dr: Tammi Sorenson MD Ordering Physician: Tammi Burgess sults: 1Negative Date of Service: 02/26/24Follow Up: 1 Year From Orig inal Mammogram Procedure(s): MM tomosynthesis screening BI Accession Number(s): [id number] cc: Tammi Burgess MD EXAMINATION: MM SCREENING [...] OV> 03/28/24 2304 DD/ 4 TD/TT: 02/26/[address] Jewel Sorter: Tammi Sorenson MD [facility] BI PROCEDURES Final Result * HIV-1/2 Antigen and Antibodies, Fourth Generation, with Reflexes (12/05/2023 7:46 AM EDT) HIV AB/AG Nonreactive Nonreactive [facility] Comment:HIV-1 p24 Ag and/or HIV-1/HIV-2 Ab not detected.A test result that is nonreactive does not exclude thepossibility of exposure to or infection with HIV-1 and/orHIV-2. Nonreactive results in this assay for individualswith prior exposure to HIV-1 and/or HIV-2 may be due toantigen and antibody levels that are below the limit ofdetection of this assay.The [employer] HIV Ag/Ab Combo assay result andsupplemental assay results should be interpreted inconjunction with the patient's clinical presentation,history and other laboratory results. If the results areinconsistent with clinical evidence, additional testing issuggested to confirm the result. Blood Venous blood specimen / Unknown 12/05/2023 7:46 AM EDT 12/05/2023 7:46 AM EDT us Tammi Sorenson MD LAB BLOOD ORDERAB LES Final Result Performing Organization Address [facility]/ZIP Co de Phone Number [facility] [address] [place] [phone] * Hemoglobin A1c (12/05/2023 7:46 AM EDT) Hemoglobin A1c 5.7 <6.0 % [facility] Comment:Hemoglobin A1C Refer ence Range Adults: 4.8 - 6.0 % Non diabetic: < 6.0 % Goal: < 7.0 %Additional Action Suggested: > 8.0 %Note: Hemoglobin A1c results are invalid for patients with abnormal amounts of HbF. Blood transfusions may impact the HbA1c concentration in the patient sample. Estimated Average Glucose 117 mg/dL [facility] Comment:eAG = Estimated ave rage glucose which is %A1C expressed asaverage glucose, using the formula of the T3Z-OcismicPttvirg Glucose study (ADAG), Diabetes Care, Vol.31,#8,2007 Blood Venous blood specimen / Unknown 12/05/2023 7:46 AM EDT 12/05/2023 7:46 AM EDT us Tammi Sorenson MD LAB BLOOD ORDERAB LES Final Result Performing Organization Address [facility] Co de Phone Number [facility] [address] [place] [phone] * (ABNORMAL) Lipid Panel, Standard (12/05/2023 7:46 AM EDT) Triglycerides 144 <150 mg/dL [facility] Comment:Desirable Triglyceri de: less than 150 mg/dLBorderline High Triglyceride 150-199 mg/dLHigh Triglyceride: 200-499 mg/dLVery High Triglyceride: greater than or equal to 5OO mg/dL Cholesterol 200(H) <200 mg/dL [facility] Comment:Desirable Cholestero l: less than 200 mg/dLBorderline High Cholesterol: 200-239 mg/dLHigh Cholesterol: greater than 239 mg/dL LDL Cholesterol Calculated 121(H) <100 mg/dL [facility] Comment:Desirable LDL: less than 100 mg/dLNear Optimal/Above Optimal LDL: 110- 129 mg/dLBorderline High LDL: 130-159 mg/dLHigh LDL: 160-189 mg/dLVery High LDL: greater than or equal to 190 mg/dL HDL Cholesterol 51 >40 mg/dL [facility] Comment:Desirable HDL: great er than 40 mg/dL Note: This HDL assay may give artificially low results in patients with liver disease. Blood Venous blood specimen / Unknown 12/05/2023 7:46 AM EDT 12/05/2023 7:46 AM EDT Tammi Sorenson MD LAB BLOOD ORDERAB LES Final Result [facility] [address] [place] [phone] * Hm Colonoscopy (05/28/2022 1:55 PM EDT) Historical Provider HEALTH MAINTENANCE Final Result * HPV E6/E7 RFLX JACOB 16 18/45 (08/15/2021 1:40 PM EST) HPV 16 RNA TNP [facility] HPV 18/45 RNA TNP [facility] HPV E6 E7 ADD TNP [facility] HPV mRNA E6/E7 rflx Not Detected Not Detected [facility] Comment: Methodology: Bank Operations Officer-Mediated Amplification This assay detects E6/E7 viral messenger RNA (mRNA) from 14 high-risk HPV types (16,18,31,33,35,39,45,51,52,56,58,59,66,68). The analytical performance characteristics of this assay have been determined by [employer]. The modifications have not been cleared or approved by the FDA. This assay has been validated pursuant to the CLIA regulations and is used for clinical purposes. For additional information, please refer to http://education.[employer]/faq/RHD675a9 (This link if provided for information/ educational purposes only.) THIS TEST WAS PERFORMED AT: [email or web address] [address] [place] [address] [address] [facility] [place], [place] ??[phone] AMY BLANCAS MD 08/15/2021 1:40 PM EST us Historical Provider MD HISTORICAL/NON ORDERABLE LABS Final Result [facility] [address] [place] [address], * THINPREP PAP (01/11/2021 11:51 AM EDT) Clinical Information: None given [facility] [...] historic and ?? current clinical information. ?? Handle Lathe Operator : SEE COMMENT [facility] Comment: GSG, CT(ASCP) CT screening location: [address] ??[address] Interpretation/R esult: Negative for intraepithelial lesion or malignancy. [facility] LMP: NONE GIVEN [facility] Prev. BX: NONE GIVEN [facility] Prev. PAP: NONE GIVEN [facility] SOURCE: None given [facility] Statement Of Adequacy: SEE COMMENT [facility] Comment: Satisfactory for evaluation. Endocervical/transformation zone component present. 01/11/2021 11:5 1 AM EDT us Historical Provider MD LAB PATHOLOGY ORDERABLES Final Result [facility] [address] from Last 3 Months or Most Recently Relevant to Health Maintenance Insurance [employer] [id number] [place] [address] DENTAL - [employer]SN F[employer] (MEDICAID) Care Teams Proj Engineer Relationship Specialty Start Date End Date Tammi Burgess MD [address] [place] [address] PCP - General Internal Medicine 04/13/23
--- OUTSIDE RECORDS SUMMARY | 2024-10-01 10:18 | XMS_ITS | Encounter Summary ---
Author Organization [facility] Address [address] [place] [address] [address] [address] Care Team Providers Care Founder & Ceo Name Role Phone Howard Charito GARZA Primary Care Provider [phone]- [phone] Tammi Burgess MD Primary Care Pro vider Encounter Details Date Type Department Care Team (Latest Contact Info) Description 07/29/[address] [facility] CONVERSIONS Dental, Provider, DDS Social History [...] Description 10/21/2024 2:00 PM EDT Office Visit [facility] ADULT D[facility] [address] [place] [address] Jamey Hussein, JUDITH [address] [place] [address] 12/21/2024 3:00 PM EDT Office Visit [facility] ADULT DENTAL [address] [place] [address] Bozena Rader [address] [place] [address] documented as of this encounter Visit Diagnoses Not on filedocumented in this encounter Care Teams Founder & Ceo Relationship Specialty Start Date End Date Charito Lawrence FNP PCP - General Family Medicine 05/17/21 04/12/23 Tammi Burgess MD [address] [place] [phone] PCP - General Internal Medicine 04/13/23 documented as of this encounter
--- OUTSIDE RECORDS SUMMARY | 2024-10-01 10:18 | XMS_ITS | Data Portability ---
Author Organization [place] - [facility], Allergy Address [address] [place] [phone] Care Team Providers Care High Speed Operator Name Role Phone [facility] Primary Care Provider [phone] Assessment Encounter Date Assessment Date Assessment LastModified [...] as needed for subjective changes in hearing. [email or web address] Not available 07/05/2024 11:53:16 Plan of Treatment [...] Organization Details Recorded Time Abnormal auditory perception [id number] Active 024 Claudia pollard MA [facility] 11:26:51 Problem Notes None recorded. Procedures Surgical History Date Name Laterality Status Provider Name and Address Organization Details Recorded Time 07/05/20 24 Tympanometry (48005) completed Claudia Love [facility] 07/05/2024 11:26:42 07/05/20 24 [employer] (28398) completed Claudia Love [facility] 07/05/2024 11:26:38 Imaging Results Imaging Date Name Status LastModified by Organiz ation Details LastModified Time 07/05/2024 audiogram completed [facility] Information no t available 07/05/2024 14:07:50 Procedure Notes None recorded. Medical Equipment None Reported. Allergies Allergen ID Allergen Name Allergen Category Reaction Reaction Severity Criticality Documentation Date Start Date Code Code System Note Provider Name and Address Organization Details Recorded Time 636191 aspirin medicatio n Not available Not available Not available 07/05/2024 1191 RxNorm Martine pollard MA [facility] 11:36:59 Medications Name Sig Start Date [...] Details Last Updated DateTime 07/05/2024 157.48 cm 40114.86 g Martine Pearce [place] - [facility] 07/05/2024 11:36:51 Social History None recorded. Functional Status None recorded. Mental Status None recorded. Family History Nothing Reported. Medical History Condition Response GERD/Reflux Y Gynecological HistoryNo gynecological history recorded. Obstetrics History GPAL:G 0 P 0 0 0 0 Past Encounters Encounter ID Performer Location Encounter Start Date Encounter Closed Date Diagnosis/Indication Diagnosis SNOMED-CT Code Diagnosis ICD10 Code Diagnosis Note [id number] BALBIR HENDRICKSON MD [facility] [address] [phone] 07/05/2024 10:26:51 07/05/2024 11:54:36 Abnormal auditory perception 64469905 H93.299 Audiologic al evaluation results: Right ear: [...] Melvin Member ID Guarantor Name 07/05/2024 1 [facility] Karen Og [id number] Karen Og Notes Date Note Type [...] remedies for hearing loss. BALBIR HENDRICKSON MD [address] [place] [address], [phone], [facility] 07/05/2024 11:53:35 OBGyn Episode No OBEpisode recorded.
--- OUTSIDE RECORDS SUMMARY | 2024-10-01 10:18 | XMS_ITS | Encounter Summary ---
Author Organization [employer] Address [address] [place] [address] [address] [address] Care Team Providers Care Meat Curer Name Role Phone Charito Lawrence Yue GARZA Primary Care Provider +1- [phone] Tammi Burgess MD Primary Care Pro vider Encounter Details Date Type Department Care Team (Late st Contact Info) Description 03/31/[address] [facility] ADULT DENTAL [address] [place], [place] [phone] Jamey Hussein, JUDITH [address] [place] [address] Social History Tobacco Use Types Packs/Day Years [...] Description 10/21/2024 2:00 PM EDT Office Visit [facility] ADULT DENTAL [address] [place], [place] [phone] Jamey Hussein, DMD [address] [place], [place] [phone] 12/21/2024 3:00 PM EDT Office Visit [facility] ADULT D[facility] [address] [place], [place] [phone] Bozena Rader [address] [place], [place] [phone] documented as of this encounter Visit Diagnoses Not on filedocumented in this encounter Care Teams Meat Curer Relationship Specialty Start Date End Date Charito Lawrence FNP PCP - General Family Medicine 05/17/21 04/12/23 Tammi Burgess MD [address] [place], [place] [phone] PCP - General Internal Medicine 04/13/23 documented as of this encounter
== END 2024-10-01 10:14 | disposition home or self-care (01) ==
LOC: HO.MRI 10:13
PROVIDERS: PCP Student in an Organized Health Care Education/Training Program; Visit Provider Student in an Organized Health Care Education/Training Program
DX: M46.90 Unspecified inflammatory spondylopathy, site unspecified (principal); M47.816 Spondylosis without myelopathy or radiculopathy, lumbar region
CPT/HCPCS: 72148

== ENCOUNTER → 2024-10-01 10:13 | Outpatient (BNV) | payer OTHER, SELFPAY | PROVIDERS: PCP Student in an Organized Health Care Education/Training Program; Visit Provider Radiology Diagnostic Radiology | DX: M46.90 Unspecified inflammatory spondylopathy, site unspecified (principal) | CPT/HCPCS: 72148 ==

== ENCOUNTER 2024-10-11 14:57 | Outpatient (AMB) | payer OTHER, SELFPAY ==
--- NOTE | 2024-10-11 15:10 | A.OFFVIS_ITS ---
Intake Visit Reasons: Right knee pain and giving way Intake Note: Karen is a 54 year old female who presents with her as a new patient with right knee pain and giving way. The patient states that she injured her knee approximately 2 months ago when she twisted her knee while walking down stairs. Since that time her symptoms have not improved. She states that her right knee will give out several times per day. She has taken Tylenol and anti- inflammatory medicines which gave her minimal relief. She has also done physical therapy exercises which aggravated her pain. The patient also has intermittent pain in her left knee. She states that her left knee pain is tolerable to her at this time. Public Works Commissioner Required: Yes Public Works Commissioner Services: Public Works Commissioner Present Public Works Commissioner Name: Ramesh ID#[id number] Allergies aspirin [ASPIRIN] Allergy (Unknown, Verified 10/11/24 15:20) SWELLING, facial swelling Medication List - Last Reconciled 10/12/24 by Keyon Bowles MD acetaminophen 500 mg PO Q6H PRN clonazepam 0.5 mg PO BEDTIME cyclobenzaprine 5 mg PO TID PRN dicyclomine 10 mg PO TID divalproex (Depakote) 750 mg (1.5 x 500 mg) PO BID 30 days duloxetine 1 cap PO DAILY famotidine 20 mg PO BID gabapentin 300 mg PO TID lidocaine 5% patches topical naproxen 500 mg PO BID omeprazole 20 mg PO DAILY semaglutide (weight loss) (Wegovy) mg subcut QWEEK triamcinolone acetonide 0.1% appl topical PFSH Medical History Osteoarthritis of knees, bilateral Migraine Anxiety disorder Fibromyalgia Seizure Surgical History History of cholecystectomy History of tubal ligation Family History Maternal Grandmother Diabetes Father HTN (hypertension) Mother HTN (hypertension) Social History Household Members: Spouse Household Members Other:: son Housing: House Alcohol intake: current Alcohol intake frequency: holidays/special occasions only Patient Tobacco Use Status: Never used Tobacco Current occupational status: employed 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 Sexual orientation: Straight/Heterosexual Gender identity: Female Female Reproductive History Menstrual Age of Menarche: 10 Physical Exam Const Other: Well-nourished well-developed very friendly female awake alert and oriented x3 in no acute distress Extrem Other: Bilateral lower extremity examination shows good capillary refill, no skin lesions noted, normal sensation light touch Right knee examination shows a minimal effusion, minimal crepitus with range of motion, tenderness along her medial joint line, positive Jose's test, no instability Results Reviewed Results Reviewed: Standing full weight-bearing x-rays of the patient's right knee show mild diffuse joint space narrowing, no acute bony abnormalities MRI of the patient's right knee shows mild degenerative changes as well as a tear of the medial meniscus MRI of the patient's left knee shows mild degenerative changes, no evidence of meniscus tearing Assessment & Plan Assessment & Plan (1) Tear of medial meniscus of right knee: Code(s): S83.241A - Other tear of medial meniscus, current injury, right knee, initial encounter Category: Medical Plan Ms. Og presents with progressively worsening right knee pain and mechanical symptoms due to a medial meniscus tear. I had a lengthy discussion with the patient regarding the treatment options. At this point she has failed continued non operative treatments. The risks and benefits of right knee arthroscopic surgery were discussed at length with the patient. The patient wishes to proceed with surgery. Surgery will most likely involve right knee arthroscopic partial medial meniscectomy. She will be scheduled for next available date. She will follow-up as instructed. Feel free to call me at any time should questions regarding her orthopedic management arise. I spent 21 minutes in reviewing the patient's records and imaging studies, seeing the patient and documenting in the medical record. Coding Level of Care Code Est Pt Level 3 (88431) Complex EM visit Add On G2211 Diagnoses Tear of medial meniscus of right knee S83.241A
== END 2024-10-11 15:26 | disposition home or self-care (01) ==
LOC: HO.HOS 14:58
PROVIDERS: PCP Student in an Organized Health Care Education/Training Program; Visit Provider Orthopaedic Surgery
DX: S83.241A Other tear of medial meniscus, current injury, right knee, initial encounter (principal)
CPT/HCPCS: 99214; G2211

== ENCOUNTER → 2024-10-11 14:57 | Outpatient (BNVA) | payer OTHER, SELFPAY | PROVIDERS: PCP Student in an Organized Health Care Education/Training Program; Visit Provider Orthopaedic Surgery | DX: S83.241A Other tear of medial meniscus, current injury, right knee, initial encounter (principal) | CPT/HCPCS: 99212 ==

== ENCOUNTER 2024-10-26 15:39 | Outpatient (AMB) | payer OTHER, SELFPAY ==
--- NOTE | 2024-10-26 15:46 | A.OFFVIS_ITS ---
Vital Signs 10/26/24 15:47 Height 5 ft 2 in Weight 148 lb BMI 27.1 BP 108/62 Blood Pressure Location Lt brachial Position Sitting Pulse 76 Pulse Source Pulse Oximeter Pulse Oximetry (%) 96 Oxygen Delivery Method Room Air Intake Visit Reasons: discuss MRI results Intake Note: Patient last seen by Doctor Katheryn Dixon on 09/20/24. Presents to discuss MRI results follow up. 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 At that time she continued to have intermittent joint pain involving her knees, hands and her back with arm a few minutes of morning stiffness. She did not take the naproxen that was prescribed to her. She finally had lumbar spine MRI with some view of the SI joints. Her lumbar spine MRI showed disc bulge at various spinal levels as well as normal SI joints. Patient states that she is following up with Orthopedics for knee surgery in the near future. Rheumatologic History: Initial history: This is a 53-year-old female who presents for evaluation of chronic back pain with positive HLA B27. Patient was evaluated by Dr. Reba gonzales in 2016 and he wants to start patient on Enbrel. Apparently it was not authorized by insurance. Patient states that she has had chronic low back pain for more than 8 years. The pain lasts all day, she has morning stiffness of her back that lasts more than 10 minutes but it it does not go away throughout the day. Also has pain at the radial aspect of her hands bilaterally without any significant swelling. She states that she tore her meniscus 6 or 7 months ago , surgery was offered but patient decided to do PT. She continues to have right knee pain but it has improved compared to how it was. She states that she took Advil in the past for her pains and it did not help much. She denies any history suggestive of psoriasis, uveitis or colitis. She is unaware of any family history of an autoimmune rheumatic disease. Denies any history of DVT/PE. She had 3 pregnancies and 3 children Current Rheumatology Medication(s): [facility] Medical History Osteoarthritis of knees, bilateral Migraine Anxiety disorder Fibromyalgia Seizure Surgical History History of cholecystectomy History of tubal ligation Family History Maternal Grandmother Diabetes Father HTN (hypertension) Mother HTN (hypertension) Social History Household Members: Spouse Household Members Other:: son Housing: House Alcohol intake: current Alcohol intake frequency: holidays/special occasions only Patient Tobacco Use Status: Never used Tobacco Current occupational status: employed 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 Sexual orientation: Straight/Heterosexual Gender identity: Female Female Reproductive History Menstrual Age of Menarche: 10 Review of Systems Const Details: Review of Systems Constitutional: Denies fever, chills, weight loss ENT: Denies vision changes, eye pain or eye redness, dental caries, dry mouth GI: Denies nausea, vomiting, diarrhea, abdominal pain, change in BM Pulm: Denies SOB, DICKSON, hemoptysis, wheezing Cards: Denies chest pain, palpitations Skin: Denies Raynaud's, rash, nail changes, photosensitivity, EDGE SETTER: Denies headaches, weakness, paresthesias, recurrent falls MSK: as per HPI All other systems reviewed and are unremarkable except noted above Physical Exam Vital Signs: Last Vital Signs Pulse 76 10/26/24 15:47 BP 108/62 10/26/24 15:47 Pulse Ox 96 10/26/24 15:47 Oxygen Delivery Method Room Air 10/26/24 15:47 BMI result Body Mass Index 27.1 Vital signs reviewed Physical Examination CONSTITUITIONAL Patient alert and cooperative. Well appearing and in no apparent painful distress HEENT Conjunctiva and sclera clear. Pupils equal round and reactive to light. No lymphadenopathy. CHEST/RESPIRATORY SYSTEM Normal respiratory effort and able to speak in complete sentences. Clear to auscultation bilaterally. No crackles, rales, rhonchi, wheezes heard. CARDIAC SYSTEM Regular rate and rhythm. S1 and S2 heard no murmurs. Radial pulses intact bilaterally MSK Hands: Good car shakeout operator strength bilaterally. No deformities noted. No synovitis noted to the MCPs, PIPs or DIPs. No tenderness to palpation of these joints. Wrists: Full range of motion at the wrists without pain. No tenderness to palpation or synovitis noted to the wrists. Elbows: Full range of motion without pain. No tenderness, weakness, swelling, increased warmth or erythema. Shoulders: Full range of motion without pain. No tenderness, weakness, swelling, increased warmth or erythema. Hips: Full range of motion without pain. Hip bursa: Tenderness to palpation Knees: Full range of motion. No tenderness, swelling, increased warmth or erythema.?No effusion or crepitations Ankles: Full range of motion. No tenderness, swelling, increased warmth or erythema.? Feet: Negative squeeze test. No tenderness to palpation or swelling of the MTPs. Tender points:?No tenderness to palpation of the bilateral trapezius, supraspinatus, greater trochanters, anterior costochondral junctions, bilateral gluteal areas, bilateral suboccipital muscle insertions Normal Stan test SHI (right side): normal SHI (left side): Equivocal. Got some pain in the back but pain was mostly in the knee SKIN Skin intact without rashes. Results Reviewed Results Reviewed: L Spine MRI 09/2024 The lumbar spine is anatomic in alignment and demonstrates a normal anatomic lordotic curvature. The vertebral body heights are well maintained. No acute or chronic compression deformities are present. The marrow signal is unremarkable. The anterior posterior longitudinal ligament and interspinous ligament are preserved. Paravertebral soft tissues within normal limits. Imaged portion of the retroperitoneum unremarkable. Sacroiliac joints appear normal. The conus demonstrates normal caliber and signal intensity and terminates at L1-L2 disc level. Individual intervertebral disc levels as follows: L1-L2: Normal disc height and signal with no discogenic changes. No disc bulge protrusion or extrusion. No central or foraminal stenosis or thecal sac compression. Normal posterior elements. L2-L3: Normal disc height and signal with no discogenic changes. No disc bulge protrusion or extrusion. No central or foraminal stenosis or thecal sac compression. Normal posterior elements. L3-L4: Normal disc height and signal with no discogenic changes. Mild disc bulge. No central or foraminal stenosis or thecal sac compression. Normal posterior elements. L4-L5: Normal disc height and signal with no discogenic changes. Posterior annular tear with mild disc bulge No central or foraminal stenosis or thecal sac compression. Degenerative facet hypertrophy L5-S1: Normal disc height and signal with no discogenic changes. Posterior annular tear with mild disc bulge No central or foraminal stenosis or thecal sac compression. Degenerative facet hypertrophy T12-L1: Normal disc height and signal with no discogenic changes. No disc bulge protrusion or extrusion. No central or foraminal stenosis or thecal sac compression. Normal posterior elements. Impression: 1. No vertebral body compression fractures or spondylolisthesis 2. Suspect transitional vertebra as described plain radiograph correlation from clivus through sacrum is recommended prior to any intervention 3. Mild disc bulge and degenerative facet hypertrophy lower lumbar vertebra but no significant central or foraminal stenosis. No nerve root impingement. Assessment & Plan Assessment & Plan (1) Lumbar spondylosis: Code(s): M47.816 - Spondylosis without myelopathy or radiculopathy, lumbar region Category: Medical Plan: #Lumbar disc bulge without myelopathy Patient is a 54-year-old female here today for follow up of her back pain and knee pain. MRI of her L-spine with views of the SI joints do not show any evidence of inflammatory arthritis. Despite her being HLA B27 positive there is no evidence of ankylosing spondylitis or spondyloarthritis at this time. We will refer her to neuro spine We will also give her short course of Flexeril to help her with her muscle spasm Plan - Flexeril 5mg at night - Refer to neuro spine for further evaluation - RTC prn Plan I spent 22 minutes reviewing the record and labs, taking a history, examining the patient, discussing the treatment plan, ordering diagnostic work up and documenting in the medical record Orders: Referrals Neuro Spine Referral G89.29 - Other chronic pain, M51.369 - Other intervertebral disc degeneration, lumbar region without mention of lumbar back pain or lower extremity pain, M54.9 - Dorsalgia, unspecified Medications: New cyclobenzaprine 5 mg PO BEDTIME PRN 30 tabs 0RF muscle spasm M47.816 - Spondylosis without myelopathy or radiculopathy, lumbar region Coding Level of Care Code Est Pt Level 3 (05524) Diagnoses Lumbar spondylosis M47.816
[2024-10-26 15:47] VITALS: BP 108/62; PULSE 76; O2SAT 96; BMI 27.1
--- OUTSIDE RECORDS SUMMARY | 2024-10-26 17:48 | XMS_ITS | Encounter Summary ---
Author Organization [employer] Address [address] [place] [address] [address] [place] [address] Care Team Providers Care Inside Sales Assistant Name Role Phone Tammi Burgess MD Primary Care Pro vider Reason for Visit * Reason Onset Date Comments Nurse Triage 07/16/2023 Encounter Details Date Type Department Care Team ([facility] st Contact Info) Description 07/16/2023 Telephone [facility] MEDICINE [address] [place] [address] Tammi Burgess MD [address] [place] [address] Nurse Triage Social History Tobacco Use Types [...] 07/16/2023 4:32 PM EST Triage call with [place] [employer] Kitchen Aide ID [id number] Pt requests for Pt to speak for Pt. Pt has acute right knee pain. Pt has been seen in [facility] 07/09/23. Pt was prescribed tylenol 500mg, brace, voltaren gel and xrays. Xrays have been done. Pt isasking what xray results are life insurance underwriter advised that there is evidence of osteoarthritis, [...] Care Team (Late st Contact Info) Description 11/15/2024 3:00 PM EDT Office Visit [facility] [address] [facility] [place] [address] Jamey Hussein, DMD [address] [place] [address] 12/21/2024 3:00 PM EDT Office Visit [facility] ADULT D[facility]AL [address] [place] [address] Bozena Rader [address] [place] [address] 12/26/2024 2:00 PM EDT Office Visit [facility] MEDICINE [address] [place] [address] Tammi Burgess MD [address] [place] [id number] documented as of this encounter Visit Diagnoses Not on filedocumented in this encounter Care Teams Inside Sales Assistant Relationship Specialty Start Date End Date Tammi Burgess MD [address] [place] [phone] PCP - General Internal Medicine 04/13/23 documented as of this encounter
--- OUTSIDE RECORDS SUMMARY | 2024-10-26 17:48 | XMS_ITS | Encounter Summary ---
Author Organization [employer] Address [address] [facility] [address] [place] [address] Care Team Providers Care Long Chain Quiller Tender Name Role Phone Tammi Burgess MD Primary Care Pro vider Reason for Visit * Reason Comments Med Refill Encounter Details Date Type Department Care Team ([facility] st Contact Info) Description 08/11/2024 Refill [facility] MEDICINE [address] [place] [address] Tammi Burgess MD [address] [place] [address] Social History Tobacco Use Types Packs/Day Years [...] Description 11/15/2024 3:00 PM EDT Office Visit [facility]ULT D[facility]AL [address] [place] [address] Jamey Hussein, DMD [address] [place] [address] 12/21/2024 3:00 PM EDT Office Visit [facility] ADULT DENTAL [address] [place] [address] Prasanth Bozena [address] [place] [address] 12/26/2024 2:00 PM EDT Office Visit [facility] MEDICINE [address] [place] [address] Tammi Burgess MD [address] [place] [phone] documented as of this encounter Visit Diagnoses Not on filedocumented in this encounter Additional Health Concerns Assessment Noted Time PHQ-9 Depression Total Score: 5 10/20/19 24 10:39 AM EDT documented as of this encounter Care Teams Long Chain Quiller Tender Relationship Specialty Start Date End Date Tammi Burgess MD [address] [place] [phone] PCP - General Internal Medicine 04/13/23 documented as of this encounter
--- OUTSIDE RECORDS SUMMARY | 2024-10-26 17:48 | XMS_ITS | Clinical Summary ---
Author Organization [employer] Address [address] [facility] [address] [place] [address] Care Team Providers Care Draw In Hand Name Role Phone Tammi Burgess MD Primary Care Pro vider Allergies Active Allergy Reactions Criticality Noted Date Comments Aspirin Itching 10/06/2022 Tolerated NSAIDS w no problem Medications Diclofenac Sodium 1 % gelIndications:L ow back pain associated with a spinal disorder other than radiculopathy or spinal stenosis Apply to the affected area QID prn 50 g 1 023 Active Additional Information Patient not taking.Reported on 10/21/2024 triamcinolone (Kenalog) 0.1 % creamIndications :Rash of foot Apply topically if needed in the morning and at bedtime (pain and swelling). 30 g 023 Active Additional Information Patient not taking.Reported on 10/21/2024 Acetaminophen Extra Strength 500 MG tablet TAKE 1 TABLET BY MOUTH EVERY 6 HOURS NEEDED FOR MILD PAIN 30 tablet 024 Active gabapentin (Neurontin) 300 MG capsuleIndicatio ns:Fibromyositis Take 1 capsule (300 mg) by mouth 3 times daily. 90 capsule 11 024 2024 Active famotidine (Pepcid) 20 MG tablet Take 1 tablet (20 mg) by mouth 2 times daily. 180 tablet 024 Active clonazePAM (KlonoPIN) 0.5 MG tablet Take 0.5 mg by mouth at bedtime. 024 Active dicyclomine (Bentyl) 10 MG capsule TAKE 1 CAPSULE BY MOUTH THREE TIMES DAILY 60 capsule Active lidocaine (Lidoderm) 5 % patch APPLY 1 PATCH TOPICALLY TO SKIN, LEAVE ON FOR 12 HOURS AND OFF FOR 12 HOURS DIRECTED 30 patch 2 Active Additional Information Patient not taking.Reported on 10/21/2024 Semaglutide-Weig ht Management (Wegovy) 1 MG/0.5ML solution auto-injector INJECT ONE PEN (=1 MG) SUBCUTANEOUSLY ONCE A WEEK 2 mL Active Additional Information Patient not taking.Reported on 10/21/2024 divalproex (Depakote) 500 MG EC tablet TAKE 1 TABLET BY MOUTH EVERY MORNING AND TAKE 2 TABLETS BY MOUTH EVERY EVENING 90 tablet 1 025 Active divalproex (Depakote) 500 MG EC tablet TAKE 1 TABLET BY MOUTH EVERY MORNING AND TAKE 2 TABLETS BY MOUTH EVERY EVENING 90 tablet 1 024 2024 Discontinued(R eorder (will not trigger notification to Pharmacy)) Active Problems Problem Noted Date Diagnosed Date [...] cancer: Never smoker Eye: 02/2023 WNL at [facility] Dental: up to date Hernia of abdominal [...] Encounters Date Type Department Care Team Description 10/21/2024 2:00 PM EDT Office Visit [facility] ADULT [facility] [address] [place] [address] Jamey Hussein, DMD Full coverage crown needed for tooth at risk for fracture (Primary Dx); Dental caries 10/10/2024 Refill [facility] [address] [place] [address] Madai Hernandez RN 10/06/2024 Telephone [facility] [address] [place] [address] Tammi Burgess MD 10/04/2024 Telephone [facility] [address] [place] [address] Tammi Burgess MD May recall 10/01/2024 Orders Only [facility] External Provider, [facility] 08/29/2024 Orders Only GENERIC EXTERNAL DATA DEPARTMENT Provider, Generic External Data 08/11/2024 Refill [facility] [address] [place] [address] Tammi Burgess MD from Last 3 Months [...] Description 11/15/2024 3:00 PM EDT Office Visit [facility] [address] [place], [place] [phone] Jamey Hussein, DMD [address] [place] [address] 12/21/2024 3:00 PM EDT Office Visit [facility]ULT [facility] [address] [place] [address] Prasanth, Bozena [address] [place] [address] 12/26/2024 2:00 PM EDT Office Visit [facility] [address] [place] [address] Tammi Burgess MD [address] [place] [address] Health Maintenance Due Date Last Done Comments CT Colonography 1970 FIT DNA/Cologuard 1970 FIT 1970 FOBT 1970 Sigmoidoscopy 1970 Pneumococcal Vaccine: 50+ Years (1 of 1 - PCV) 2020 COVID-19 Vaccine (3 - season) 2024 10/29/2021, 11/02/2020 Influenza Vaccine (#1) 2024 07/28/2018 Dental Oral Exam 09/18/2024 03/17/2024, , 07/28/2018 SDOH Screening 10/12/2024 10/13/2023 Depression Screening 10/19/2024 10/20/2023, 10/20/19 Diabetes: Hemoglobin A1C 12/04/2024 024, 02/07/2023, 02/22/2022 Dental X-Ray: Bitewings 12/15/2024 12/15/19 24, 02/19/2023, 07/28/2018 Dental Prophylaxis 12/16/2024 06/17/2024, 0 12/15/2023, 03/12/2023, Additional history exists Alcohol/Substance Use Screening 06/22/2025 06/22/2024 Tobacco Screening 10/21/2025 10/21/2024 Cervical Cancer Screening 01/11/2026 Pap Smear 01/11/2026 01/11/2021 Dental X-Ray: Full Mouth 02/20/2026 02/19/2023, 08/2018 Mammogram 02/25/2026 02/26/2024, 11/02/2018 HPV/Cotest 08/15/2026 08/15/2021, 07/28, 01/11/2021, Additional history exists Lipid Panel 12/04/2028 12/05/2023, 01/24, 10/18/2022 Colonoscopy 05/28/2029 05/28/2022 Colorectal Cancer Screening 05/28/2029 [...] Procedure Name Priority Date/Time Associated Diagnosis Comments CASE PRESENTATION, DETAILED AND EXTENSIVE TREATMENT PLANNING Routine 10/21/2024 2:00 PM EDT Full coverage crown needed for tooth at risk for fracture Dental caries 3 CROWN PREP Routine 10/21/2024 2:00 PM EDT Full coverage crown needed for tooth at risk for fracture Dental caries 3 CORE BUILDUP, INCL ANY PINS WHEN REQ Routine 10/21/2024 2:00 PM EDT Full coverage crown needed for tooth at risk for fracture Dental caries MR LUMBAR SPINE WO CONTRAST Routine 10/03/2024 11:14 AM EDT HEMATOXYLIN AND EOSIN STAIN Routine 08/29/2024 4:03 PM EST MR KNEE WO CONTRAST LEFT Routine 08/07/2024 2:58 PM EST US PELVIS TRANSVAGINAL Routine 4:26 PM EST PROPHYLAXIS - ADULT Routine 06/17/2024 3 :00 PM EST Dental plaque PERIODIC ORAL EVALUATION - ESTABLISHED PATIENT Routine 03/17/2024 3:00 PM EDT Secondary dental caries associated with failed or defective dental hoahaoism Full coverage crown needed for root canal-treated [...] Relevant to Health Maintenance Results * MR Lumbar Spine w/o Contrast (10/03/2024 11:14 AM EDT) Anatomical Region Laterality Modality Spine, L-spine Magnetic Resonan ce 10/03/2024 11:1 4 AM EDT Narrative 10/03/2024 11:15 AM EDT ? [facility] ?[address] ?[place] [address] ? Magnetic Resonance Report ? Signed ? Patient: Karen Og ?MR#: [id number] ?? 4 ? : 1970 ?Acct:[id number] ? Age/Sex: 54 / F ?ADM Date: 10/01/24 ? Loc: HO.MRI ? Attending Dr: Katheryn Dixon MD ? Ordering Physician: Katheryn Dixon MD ?? Date of Service: 10/01/24 ?? Procedure(s): MR lumbar spine wo con ?? Accession Number(s): [id number] ? cc: Katheryn Dixon MD; Tammi Burgess MD ? 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 Examination: MRI lumbar spine without intravenous contrast ? Comparison: CT/ND/SR - CT LUMBAR SPINE WO IV CON - 04/08/23 16:26 EDT ?? CR - LUMBAR SPINE 2TO 3 [id number] - 07/24/14 10:54 EST ? Findings: ? Plain radiograph correlation: 07/24/20145 developed non rib-bearing lumbar ?? vertebra was demonstrated. There is probable lumbarization of S1 vertebra ?? with pseudoarthrosis on the left. Plain radiographs from clivus through ?? sacrum is recommended for proper vertebral count before intervention is ?? considered. ? The lumbar spine is anatomic in alignment and demonstrates a normal ?? anatomic lordotic curvature. The vertebral body heights are well ?? maintained. No acute or chronic compression deformities are present. The ?? marrow signal is unremarkable. The anterior posterior longitudinal ?? ligament and interspinous ligament are preserved. Paravertebral soft ?? tissues within normal limits. Imaged portion of the retroperitoneum ?? unremarkable. Sacroiliac joints appear normal. ? The conus demonstrates normal caliber and signal intensity and terminates ?? at L1-L2 disc level. ? Individual intervertebral disc levels as follows: ? L1-L2: Normal disc height and signal with no discogenic changes. No disc ?? bulge protrusion or extrusion. No central or foraminal stenosis or thecal ?? sac compression. Normal posterior elements. ? L2-L3: Normal disc height and signal with no discogenic changes. No disc ?? bulge protrusion or extrusion. No central or foraminal stenosis or thecal ?? sac compression. Normal posterior elements. ? L3-L4: Normal disc height and signal with no discogenic changes. Mild disc ?? bulge. No central or foraminal stenosis or thecal sac compression. Normal ?? posterior elements. ? L4-L5: Normal disc height and signal with no discogenic changes. Posterior ?? annular tear with mild disc bulge No central or foraminal stenosis or ?? thecal sac compression. Degenerative facet hypertrophy ? L5-S1: Normal disc height and signal with no discogenic changes. Posterior ?? annular tear with mild disc bulge No central or foraminal stenosis or ?? thecal sac compression. Degenerative facet hypertrophy ? T12-L1: Normal disc height and signal with no discogenic changes. No disc ?? bulge protrusion or extrusion. No central or foraminal stenosis or thecal ?? sac compression. Normal posterior elements. ? Impression: ? 1. No vertebral body compression fractures or spondylolisthesis ?? 2. Suspect transitional vertebra as described plain radiograph correlation ?? from clivus through sacrum is recommended prior to any intervention ?? 3. Mild disc bulge and degenerative facet hypertrophy lower lumbar ?? vertebra but no significant central or foraminal stenosis. No nerve root ?? impingement. ? This document has been electronically signed by: Efren Baca MD on ?? 10/03/2024 11:14:41 ? Dictated By: ?Efren Baca MD ? Signed By: ?<Electronically signed by Efren Baca MD in OV> ?10/03/245 ? DD/ 1114 ? TD/TT: 10/03/24 1114 ? Non Destructive Testing Engineer: ? Procedure Note Donotuseinterpreter, Image - 10/03/2024 [place] [address] Magnetic Resonance Report Signed Patient: Karen Og MMR#: [id number] 4 : 1970Acct:[id number] Age/Sex: 54 / FADM Date: 10/01/24 Loc: HO.MRI Attending Dr: Katheryn Dixon MD Ordering Physician: Katheryn Dixon MD Date of Service: 10/01/24 Procedure(s): MR lumbar spine wo con Accession Number(s): [id number] cc: Katheryn Dixon MD; Tammi Burgess MD CLINICAL HISTORY: M46.90 - Unspecified inflammatory spondylopathy, siteunspecified Examination: MRI lumbar spine without intravenous contrast Comparison: CT/ND/SR - CT LUMBAR SPINE WO IV CON - 04/08/23 16:26 EDT CR - LUMBAR SPINE 2TO 3 [id number] - 07/24/14 10:54 EST Findings: Plain radiograph correlation: developed non rib-bearing lumbar vertebra was demonstrated. There is probable lumbarization of S1 vertebra with pseudoarthrosis on the left. Plain radiographs from clivus through sacrum is recommended for proper vertebral count before intervention is considered. The lumbar spine is anatomic in alignment and demonstrates a normal anatomic lordotic curvature. The vertebral body heights are well maintained. No acute or chronic compression deformities are present. The marrow signal is unremarkable. The anterior posterior longitudinal ligament and interspinous ligament are preserved. Paravertebral soft tissues within normal limits. Imaged portion of the retroperitoneum unremarkable. Sacroiliac joints appear normal. The conus demonstrates normal caliber and signal intensity and terminates at L1-L2 disc level. Individual intervertebral disc levels as follows: L1-L2: Normal disc height and signal with no discogenic changes. No disc bulge protrusion or extrusion. No central or foraminal stenosis or thecal sac compression. Normal posterior elements. L2-L3: Normal disc height and signal with no discogenic changes. No disc bulge protrusion or extrusion. No central or foraminal stenosis or thecal sac compression. Normal posterior elements. L3-L4: Normal disc height and signal with no discogenic changes. Mild disc bulge. No central or foraminal stenosis or thecal sac compression. Normal posterior elements. L4-L5: Normal disc height and signal with no discogenic changes. Posterior annular tear with mild disc bulge No central or foraminal stenosis or thecal sac compression. Degenerative facet hypertrophy L5-S1: Normal disc height and signal with no discogenic changes. Posterior annular tear with mild disc bulge No central or foraminal stenosis or thecal sac compression. Degenerative facet hypertrophy T12-L1: Normal disc height and signal with no discogenic changes. No disc bulge protrusion or extrusion. No central or foraminal stenosis or thecal sac compression. Normal posterior elements. Impression: 1. No vertebral body compression fractures or spondylolisthesis 2. Suspect transitional vertebra as described plain radiograph correlation from clivus through sacrum is recommended prior to any intervention 3. Mild disc bulge and degenerative facet hypertrophy lower lumbar vertebra but no significant central or foraminal stenosis. No nerve root impingement. This document has been electronically signed by: Efren Baca MD on 10/03/2024 11:14:41 Dictated By: Efren Baca MD Signed By: <Electronically signed by Efren Baca MD in OV> 10/03/24 1115 DD/ 1114 TD/TT: 10/03/24 1114 Non Destructive Testing Engineer: [facility] External Provider IMG MRI PROCEDURES Edited Result - Final * Hematoxylin and Eosin Stain (08/29/2024 4:03 PM EST) 08/29/2024 4:03 PM EST 08/30/2024 7:40 AM EST Narrative [facility] - 08/31/2024 12:42 PM EST ----- ------- Name: Karen Og ?Age/Sex: 54/F ? : 1970 Unit#: [id number] ?? Attend Dr: Juan Espinoza MD ?Re08/29/24 ?Status: DEP REF ? Location: HO.LNP ?Disch: ? ----- ------- SPEC : [id number] ?RECD: 08/30/24 ? STATUS: ??SOUT ? REQ NUM: [id number] ? MORGAN: 08/29/24-1602 ? SUBM DR: Juan [...] To: ?? Tammi Burgess MD ?? [address] [facility] ?? [place] [address] ?? [phone] ?? Juan Espinoza MD ?? [facility] ?? [address] ?? [place] [address] ?? [phone] ----- ------- Signed (signature on file) Katlyn Viveros 08/31/24 1242 ? ----- ------- ? END OF REPORT ? us Generic External Data Provider LAB BLOOD ORDERAB LES Final Result [facility] [address] [place] [address] [phone] * MR Knee w/o Contrast Left (08/07/2024 2:58 PM EST) Anatomical Region Laterality Modality Magnetic Resonan ce 08/07/2024 2:58 PM EST Narrative 08/09/2024 10:56 AM EST ? [facility] ?[address] ?[place] [address] ? Magnetic Resonance Report ? Signed ? Patient: Karen Og ?MR#: [id number] ?? 4 ? : 1970 ?Acct:[id number] ? Age/Sex: 54 / F ?ADM Date: 08/07/24 ? Loc: HO.MRI ? Attending Dr: Keyon Bowles MD ? Ordering Physician: Keyon Bowles MD ?? Date of Service: 08/07/24 ?? Procedure(s): MR knee LT wo con ?? Accession Number(s): [id number] ? cc: Tammi Burgess MD; Keyon Bowles [...] DD/ 1458 ? TD/TT: 08/07/24 1507 ? Non Destructive Testing Engineer: ? Procedure Note Vin, Image - 08/09/[address] [address] Magnetic Resonance Report Signed Patient: Karen Og [facility]#: [id number] 4 : 1970Acct:[id number] Age/Sex: 54 / FADM Date: 08/07/24 Loc: HO.MRI Attending Dr: Keyon Bowles MD Ordering Physician: Keyon Bowles MD Date of Service: 08/07/24 Procedure(s): MR knee LT wo con Accession Number(s): [id number] cc: Tammi Burgess MD; Keyon Bowles MD [...] Novak MD in OV> 08/09/24 1053 DD/ 9638 TD/TT: 08/07/24 1507 Non Destructive Testing Engineer: [facility] External Provider IM MRI PROCEDURES Final Result * US Pelvis Transvaginal (08/02/2024 4:26 PM EST) Anatomical Region Laterality Modality Pelvis Ultrasound 08/02/2024 4:26 PM EST Narrative 08/02/2024 4:27 PM EST ? [facility] ?[address] ?[place] [address] ? Ultrasound Report ? Signed ? Patient: Og,Karen M ?MR#: [id number] ?? 4 ? : 1970 ?Acct:[id number] ? Age/Sex: 54 / F ?ADM Date: 08/01/24 ? Loc: HO.US ? Attending Dr: Juan Espinoza MD ? Ordering Physician: Juan Espinoza MD ?? Date of Service: 08/01/24 ?? Procedure(s): US pelvic and transvaginal ?? Accession Number(s): [id number] ? cc: Tammi Burgess MD; Juan Espinoza MD ? CLINICAL HISTORY: D25.9 - Leiomyoma of uterus, unspecified ? US pelvis transabdominal and transvaginal ? Comparison: US/ND/SR - US PELVIC AND TRANSVAGINAL - 09/28/23 [...] MD in OV> ? 08/02/241625 ? DD/ 1626 ? TD/TT: 08/02/24 1626 ? Non Destructive Testing Engineer: ? Procedure Note Donotuseinterpreter, Image - 08/02/2024 [place] [address] Ultrasound Report Signed Patient: Karen Og MMR#: [id number] 4 : 1970Acct:[id number] Age/Sex: 54 / FADM Date: 08/01/24 Loc: HO.US Attending Dr: Juan Espinoza MD Ordering Physician: Juan Espinoza MD Date of Service: 08/01/24 Procedure(s): US pelvic and transvaginal Accession Number(s): [id number] cc: Tammi Burgess MD; Juan Espionza MD CLINICAL HISTORY: D25.9 - Leiomyoma of uterus, unspecified US pelvis transabdominal and transvaginal Comparison: US/ND/SR - US PELVIC AND TRANSVAGINAL - 09/28/23 [...] OV> 08/02/24 1626 DD/ 25 TD/TT: 08/02/241625 Non Destructive Testing Engineer: [facility] External Provider IMG US PROCEDURES Final Result * Hepatitis Panel, General (03/08/2024 11:43 AM EDT) Hepatitis A IgM Nonreactive Nonreactive [facility] Comment:IgM antibodies to LEMUS V not detected; does not exclude earlyacute or recovered HAV infection. ~Hepatitis B Surface Antibody REACTIVE Nonreactive [facility] Comment:REACTIVE: > 11.99 mI U/mL Hepatitis B Core Antibody Nonreactive Nonreactive [facility] Hepatitis C Antibody Nonreactive Nonreactive [facility] Comment:Antibodies to HCV no t detected; does not exclude early acuteHCV infection. Hepatitis B Surface Ag Negative Negative [facility] 03/08/2024 11:4 3 AM EDT 03/08/2024 11:43 AM EDT Generic External Data Provider LAB BLOOD ORDERAB LES Final Result [facility] [address] [place] [phone] * BI Mammogram Screening Tomosynthesis Bilateral (02/26/2024 9:15 AM EDT) Anatomical Region Laterality Modality Breast Bilateral Mammography 02/26/2024 9:15 AM EDT Narrative 03/28/2024 11:07 PM EDT ? [facility] ?[address] ?[place] [address] ? Mammography Report ? Signed ? Patient: Og,Karen M ?MR#: [id number] ?? 4 ? : 1970 ?Acct:[id number] ? Age/Sex: 53 / F ?ADM Date: 02/26/24 ? Loc: HO.US ? Attending Dr: Tammi Sorenson MD ? Ordering Physician: Tammi Burgess MD ?Re ?? sults: 1Negative ? Date of Service: 02/26/24 ?Follow Up: 1 Year From Orig ?? inal Mammogram ? Procedure(s): MM tomosynthesis screening BI ?? Accession Number(s): [id number] ? cc: Tammi Burgess MD ? EXAMINATION: [...] by Karen Herrera MD in OV> ? 03/28/244 ? DD/ 4 ? TD/TT: 02/26/249[address] ? Non Destructive Testing Engineer: ? Procedure Note Olu Banuelos - 03/28/2024 [place] [address] Mammography Report Signed Patient: Karen Og [facility]#: [id number] 4 : 1970Acct:[id number] Age/Sex: 53 / FADM Date: 02/26/24 Loc: HO.US Attending Dr: Tammi Sorenson MD Ordering Physician: Tammi Burgess sults: 1Negative Date of Service: 02/26/24Follow Up: 1 Year From Orig inal Mammogram Procedure(s): MM tomosynthesis screening BI Accession Number(s): [id number] cc: Tammi Burgess MD EXAMINATION: MM SCREENING [...] Karen Herrera MD 03/28/2024 11:04 PM EDT RP Dictated By: Karen Herrera MD Signed By: <Electronically signed by Karen Herrera MD in OV> 03/28/24 2304 DD/ 4 TD/TT: 02/26/249[address] Non Destructive Testing Engineer: [facility] Center[facility]audia[facility] Sorenson MD IM BI PROCEDURES Final Result * HIV-1/2 Antigen and Antibodies, Fourth Generation, with Reflexes (12/05/2023 7:46 AM EDT) HIV AB/AG Nonreactive Nonreactive [facility] Comment:HIV-1 p24 Ag and/or HIV-1/HIV-2 Ab not detected.A test result that is nonreactive does not exclude thepossibility of exposure to or infection with HIV-1 and/orHIV-2. Nonreactive results in this assay for individualswith prior exposure to HIV-1 and/or HIV-2 may be due toantigen and antibody levels that are below the limit ofdetection of this assay.The [employer] HIV Ag/Ab Combo assay result andsupplemental assay results should be interpreted inconjunction with the patient's clinical presentation,history and other laboratory results. If the results areinconsistent with clinical evidence, additional testing issuggested to confirm the result. Blood Venous blood specimen / Unknown 12/05/2023 7:46 AM EDT 12/05/2023 7:46 AM EDT Tammi Sorenson MD LAB BLOOD ORDERAB LES Final Result Performing Organization Address [facility]/ZIP Co de Phone Number [facility] [address] [place] [phone] * Hemoglobin A1c (12/05/2023 7:46 AM EDT) Hemoglobin A1c 5.7 <6.0 % [facility] Comment:Hemoglobin A1C Refer ence Range Adults: 4.8 - 6.0 % Non diabetic: < 6.0 % Goal: < 7.0 %Additional Action Suggested: > 8.0 %Note: Hemoglobin A1c results are invalid for patients with abnormal amounts of HbF. Blood transfusions may impact the HbA1c concentration in the patient sample. Estimated Average Glucose 117 mg/dL [facility] Comment:eAG = Estimated ave rage glucose which is %A1C expressed asaverage glucose, using the formula of the B9N-IjzyzirXsqovsj Glucose study (ADAG), Diabetes Care, Vol.31,#8,Feb. 2007 Blood Venous blood specimen / Unknown 12/05/2023 7:46 AM EDT 12/05/2023 7:46 AM EDT us Tammi Sorenson MD LAB BLOOD ORDERAB LES Final Result Performing Organization Address [facility]/ZIP Co de Phone Number [facility] [address] [place] [phone] * (ABNORMAL) Lipid Panel, Standard (12/05/2023 7:46 AM EDT) Triglycerides 144 <150 mg/dL [facility] Comment:Desirable Triglyceri de: less than 150 mg/dLBorderline High Triglyceride 150-199 mg/dLHigh Triglyceride: 200-499 mg/dLVery High Triglyceride: greater than or equal to 5OO mg/dL Cholesterol 200(H) <200 mg/dL [facility] Comment:Desirable Cholestero l: less than 200 mg/dLBorderline High Cholesterol: 200-239 mg/dLHigh Cholesterol: greater than 239 mg/dL LDL Cholesterol Calculated 121(H) <100 mg/dL [facility] Comment:Desirable LDL: less than 100 mg/dLNear Optimal/Above Optimal LDL: 110- 129 mg/dLBorderline High LDL: 130-159 mg/dLHigh LDL: 160-189 mg/dLVery High LDL: greater than or equal to 190 mg/dL HDL Cholesterol 51 >40 mg/dL [facility] Comment:Desirable HDL: great er than 40 mg/dL Note: This HDL assay may give artificially low results in patients with liver disease. Blood Venous blood specimen / Unknown 12/05/2023 7:46 AM EDT 12/05/2023 7:46 AM EDT Tammi Sorenson MD LAB BLOOD ORDERAB LES Final Result [facility] [address] [place] [phone] * Hm Colonoscopy (05/28/2022 1:55 PM EDT) Historical Provider HEALTH MAINTENANCE Final Result * HPV E6/E7 RFLX JACOB 16 18/45 (08/15/2021 1:40 PM EST) HPV 16 RNA TNP [facility] HPV 18/45 RNA [facility]NP [facility] HPV E6 E7 ADD TNP [facility] HPV mRNA E6/E7 rflx Not Detected Not Detected [facility] Comment: Methodology: Clockmaker Apprentice-Mediated Amplification This assay detects E6/E7 viral messenger RNA (mRNA) from 14 high-risk HPV types (16,18,31,33,35,39,45,51,52,56,58,59,66,68). The analytical performance characteristics of this assay have been determined by [employer]. The modifications have not been cleared or approved by the FDA. This assay has been validated pursuant to the CLIA regulations and is used for clinical purposes. For additional information, please refer to http://education.[employer].MedArkive/faq/QOE106f7 (This link if provided for information/ educational purposes only.) THIS TEST WAS PERFORMED AT: [facility] [address] [place], [place] ??[phone] AMY BLANCAS MD 08/15/2021 1:40 PM EST us Historical Provider HISTORICAL/NON ORDERABLE LABS Final Result Performing Organization Address [facility] de Phone Number [facility] [address] * THINPREP PAP (01/11/2021 11:51 AM [...] historic and ?? current clinical information. ?? Spanish Interpreter/Translator : SEE [facility] Comment: GSG, CT(ASCP) CT screening location: [address] ??[id number] Interpretation/R esult: Negative for intraepithelial lesion or [...] 11:5 1 AM EDT us Historical Provider LAB PATHOLOGY ORDERABLES Final Result Performing Organization Address [facility] Co de Phone Number [facility] [address] from Last 3 Months or Most Recently Relevant to Health Maintenance Insurance HSN FULL [facility] - HSN FULL (MEDICAID) Care Teams Draw In Hand Relationship Specialty Start Date End Date Tamim Burgess MD [address] [place] [address] [phone] PCP - General Internal Medicine 04/13/23
--- OUTSIDE RECORDS SUMMARY | 2024-10-26 17:48 | XMS_ITS | Encounter Summary ---
Author Organization [employer] Address [address] [facility] [facility] 7t [place] [address] Care Team Providers Care Aluminum Siding Installer Name Role Phone Tammi Burgess MD Primary Care Pro vider Encounter Details Date Type Department Care Team (Late st Contact Info) Description 08/06/2023 Orders Only [facility] MEDICINE [address] [place], [place] [phone] Judy Prieto MD [address] [place], [place] [phone] Acute pain of right knee (Primary Dx); [...] Description 11/15/2024 3:00 PM EDT Office Visit [facility] [address] [place] [address] Jamey Hussein, DMD 505 [place] [address] 12/21/2024 3:00 PM EDT Office Visit [facility] ADULT DENTAL [address] [place] [address] Prasanth Bozena [address] [place] [address] 12/26/2024 2:00 PM EDT Office Visit [facility] MEDICINE [address] [place] [address] Tammi Burgess MD [address] [place] [phone] documented as of this encounter Visit Diagnoses Diagnosis Acute pain of right knee- Primary Effusion of right knee Dislocation of right knee with medial meniscus tear, initial encounter documented in this encounter Additional Health Concerns Assessment Noted Time PHQ-9 Depression Total Score: 0 07/23/20 23 11:15 AM EST documented as of this encounter Care Teams Aluminum Siding Installer Relationship Specialty Start Date End Date Tammi Burgess MD [address] [place] [phone] PCP - General Internal Medicine 04/13/23 documented as of this encounter
--- OUTSIDE RECORDS SUMMARY | 2024-10-26 17:48 | XMS_ITS | Encounter Summary ---
Author Organization [employer] Address [address] [place] [address] 7t [place] [address] Care Team Providers Care Political Geographer Name Role Phone HowardCharito carrizales Yue GARZA Primary Care Provider +1- [phone] Tammi Burgess MD Primary Care Pro vider [...] Upcoming Encounters Date Type Department Care Team ( st Contact Info) Description 11/15/2024 3:00 PM EDT Office Visit [facility] ADULT [facility] [address] [place] [address] Jamey Hussein, JUDITH 505 [place] [address] 12/21/2024 3:00 PM EDT Office Visit [facility] ADULT DENTAL [address] [place] [address] Prasanth Bozena [address] [place] [address] 12/26/2024 2:00 PM EDT Office Visit [facility] MEDICINE [address] [place] [address] Tammi Burgess MD [address] [place], [place] [phone] documented as of this encounter Visit Diagnoses Not on filedocumented in this encounter Care Teams Political Geographer Relationship Specialty Start Date End Date Charito Lawrence FNP PCP - General Family Medicine 05/17/21 04/12/23 Tammi Burgess MD [address] [place] [address] PCP - General Internal Medicine 04/13/23 documented as of this encounter
--- OUTSIDE RECORDS SUMMARY | 2024-10-26 17:48 | XMS_ITS | Encounter Summary ---
Author Organization [employer] Address [address] [place] [address] [place], [place] [address] Care Team Providers Care Insurance Salesman Name Role Phone Charito Lawrence Yue GARZA Primary Care Provider +1- [phone] Tammi Burgess MD Primary Care Pro vider Encounter Details Date Type Department Care Team (Late st Contact Info) Description 03/31/2023 Abstract [facility] ADULT DENTAL [address] [place], [place] [phone] Jamey Hussein, JUDITH [address] [place] [address] Social History Tobacco Use Types Packs/Day Years [...] Description 11/15/2024 3:00 PM EDT Office Visit [facility] ADULT DENTAL [address] [place], [place] [phone] Jamey Hussein, DMD 505 [place] [address] 12/21/2024 3:00 PM EDT Office Visit [facility] ADULT DENTAL [address] [place], [place] [phone] Ole Raderaris [address] [place] [address] 12/26/2024 2:00 PM EDT Office Visit [facility] MEDICINE [address] [place] [address] Tammi Burgess MD 230 [place], [place] [phone] documented as of this encounter Visit Diagnoses Not on filedocumented in this encounter Care Teams Insurance Salesman Relationship Specialty Start Date End Date Charito Lawrence FNP PCP - General Family Medicine 05/17/21 04/12/23 Tammi Burgess MD [address] [place] [phone] PCP - General Internal Medicine 04/13/23 documented as of this encounter
--- OUTSIDE RECORDS SUMMARY | 2024-10-26 17:48 | XMS_ITS | Encounter Summary ---
Author Organization [employer] Address [address] [facility] 7t [place] [address] Care Team Providers Care Director Of Government Sales Name Role Phone Tammi Burgess MD Primary Care Pro vider Encounter Details Date Type Department Care Team ([facility] st Contact Info) Description 07/18/2024 Orders Only [facility] MEDICINE [address] [place], [place] [phone] ProviderChata MD Social History Tobacco Use Types [...] 1:55 PM EST Pelvic US ordered by [employer] COATING EQUIPMENT TENDER. Patient to fu results with [employer] COATING EQUIPMENT TENDER (Dr Espinoza). documented in this encounter Plan of Treatment Upcoming Encounters Date Type Department Care Team (Late st Contact Info) Description 11/15/2024 3:00 PM EDT Office Visit [facility] ADULT DENTAL [address] [place] [address] Jamey Hussein, DMD 505 [place] [address] 12/21/2024 3:00 PM EDT Office Visit [facility] ADULT DENTAL [address] [place] [address] Prasanth, Bozena [address] [place] [address] 12/26/2024 2:00 PM EDT Office Visit [facility] MEDICINE [address] [place] [address] Tammi Burgess MD [address] [place] [address] documented as of this encounter Procedures Procedure [...] EST Narrative 08/09/2024 10:56 AM EST ? [facility] ?[address] ?[place] [address] ? Magnetic Resonance Report ? Signed ? Patient: Og,Karen M ?MR#: [id number] ?? 4 ? : 1970 ?Acct:[id number] ? Age/Sex: 54 / F ?ADM Date: 08/07/24 ? Loc: HO.MRI ? Attending Dr: Keyon Bowles MD ? Ordering Physician: Keyon Bowles MD ?? Date of Service: 08/07/24 ?? Procedure(s): MR knee LT wo con ?? Accession Number(s): [id number] ? cc: Tammi Burgess MD; Keyon Bowles [...] DD/ 1458 ? TD/TT: 08/07/24 1507 ? Trimming Press Operator: ? Procedure Note Donnatinterpreter, Image - 08/09/2024 [place] [address] Magnetic Resonance Report Signed Patient: Karen Og [facility]#: [id number] 4 : 1970Acct:[id number] Age/Sex: 54 / FADM Date: 08/07/24 Loc: HO.MRI Attending Dr: Keyon Bowles MD Ordering Physician: Keyon Bowles MD Date of Service: 08/07/24 Procedure(s): MR knee LT wo con Accession Number(s): [id number] cc: Tammi Burgess MD; Keyon Bowles MD [...] 08/09/24 1053 DD/ 1458 TD/TT: 08/07/24 1507 Trimming Press Operator: [facility] External Provider IMG MRI PROCEDURES Final Result * US Pelvis Transvaginal (08/02/2024 4:26 PM EST) Anatomical Region Laterality Modality Pelvis Ultrasound 08/02/2024 4:26 PM EST Narrative 08/02/2024 4:27 PM EST ? [facility] ?[address] ?[place] [address] ? Ultrasound Report ? Signed ? Patient: Og,Karen M ?MR#: [id number] ?? 4 ? : 1970 ?Acct:[id number] ? Age/Sex: 54 / F ?ADM Date: 08/01/25 ? Loc: HO.US ? Attending Dr: Juan Espinoza MD ? Ordering Physician: Juna Espinoza MD ?? Date of Service: 08/01/24 ?? Procedure(s): US pelvic and transvaginal ?? Accession Number(s): [id number] ? cc: Tammi Burgess MD; Juan Espinoza MD ? CLINICAL HISTORY: D25.9 - Leiomyoma of uterus, unspecified ? US pelvis transabdominal and transvaginal ? Comparison: US/VT/SR - US PELVIC AND TRANSVAGINAL - 09/28/23 [...] ? DD/ 25 ? TD/TT: 08/02/241625 ? Trimming Press Operator: ? Procedure Note Donotuseinterpreter, Image - 08/02/[address] [address] Ultrasound Report Signed Patient: Karen Og MMR#: [id number] 4 : 1970Acct:[id number] Age/Sex: 54 / FADM Date: 08/01/24 Loc: HO.US Attending Dr: Juan Espinoza MD Ordering Physician: Juan Espinoza MD Date of Service: 08/01/24 Procedure(s): US pelvic and transvaginal Accession Number(s): [id number] cc: Tammi Burgess MD; Juan Espinoza MD CLINICAL HISTORY: D25.9 - Leiomyoma of uterus, unspecified US pelvis transabdominal and transvaginal Comparison: US/VT/SR - US PELVIC AND TRANSVAGINAL - 09/28/23 [...] 08/02/24 1626 DD/ 1626 TD/TT: 08/02/24 1626 Trimming Press Operator: [facility] External Provider IMG US PROCEDURES Final Result * Hm Colonoscopy (05/28/2022 1:55 PM EDT) Historical Provider HEALTH MAINTENANCE Final Result documented in this encounter Visit Diagnoses Not on filedocumented in this encounter Additional Health Concerns Assessment Noted Time PHQ-9 Depression Total Score: 5 10/20/19 24 10:39 AM EDT documented as of this encounter Care Teams Director Of Government Sales Relationship Specialty Start Date End Date Tammi Burgess MD [address] [place] [phone] PCP - General Internal Medicine 04/13/23 documented as of this encounter
--- OUTSIDE RECORDS SUMMARY | 2024-10-26 17:48 | XMS_ITS | Encounter Summary ---
Author Organization [employer] Address [address] [facility] 7t [place] [address] Care Team Providers Care Audiology Technician Name Role Phone Tammi Burgess MD Primary Care Pro vider Reason for Visit * Reason Comments [place] Patient presents tod ay for core build up and crown prep Dia HINOJOSA Encounter Details Date Type Department Care Team ([facility] st Contact Info) Description 10/21/2024 2:00 PM EDT Office Visit [facility] ADULT DENTAL [address] [place] [address] Jamey Hussein, DMD [address] [place], [place] [phone] Full coverage crown needed for tooth at risk for fracture (Primary Dx); Dental caries Social History Tobacco Use Types Packs/Day Years [...] AM EDT documented as of this encounter Progress Notes * Jamey Hussein DMD - 10/21/2024 2:00 PM EDT Patient ID: Karen Og is a 54 y.o. female. Time Out: Timeout Date: 10/21/24, Timeout Time: 1418 (Core build up and crown prep #3) Location: [facility] Tooth: #3 Procedure: Amish and [place] Verified the above with patient, residential living assistant, and provider. Confirmed via patient's chart, intraorally and by radiographs. Numerical Control Lathe Operator: Yes. Language: Czech. Numerical Control Lathe Operator's Name: Dia HINOJOSA Chief Complaint Patient presents with [place] Patient presents today for core build up and crown prep Dia HINOJOSA Medical Hx: Vitals: There were no vitals taken for this visit. Medications, Med Hx reviewed with patient and updated in chart. Consent Obtained: The risks, benefits, indications, potential complications, and alternatives were explained to the patient and informed consent was obtained with good understanding. Treatment Provided: Dental procedures in this visit D2950 - CORE BUILDUP, INCL ANY PINS WHEN REQ 3 (Completed) Service provider: Jamey Hussein DMD Billing provider: Jamey Hussein DMD D2700.1 - CROWN PREP 3 (Completed) Service provider: Jamey Hussein DMD Billing provider: Jamey Hussein DMD D9450 - CASE PRESENTATION, DETAILED AND EXTENSIVE TREATMENT PLANNING (Completed) Service provider: Jamey Hussein DMD Billing provider: Jamey Hussein DMD Diagnosis: #3 MODL fractured tooth, recurrent decay. Full coverage crown indicated to prevent further crack propagation Pt asymptomatic Topical: 20% Benzocaine Anesthesia: 4% Septocaine (Articaine) w/ 1:200,000 epinephrine Number of Cartridges: 1 Injection Type: Buccal infiltration and Palatal infiltration Confirmed profound anesthesia. Isolation: high speed suction, cotton rolls, and cheek guard Prep: All caries removed, Existing temple removed, and Preparation finalized Note crack lines extend through pulpal floor, over distal axial wall and lingual axial wall. Clean tooth structure achieved Matrix: size 000 cord soaked in hemodent placed in sulcus for gingival retraction Etch: 37% Phosphoric Acid Etch Desensitizer: Gluma Liner/Base: None Shin: I-Shin Amish Material: Voco Grandioso Flowable Shade: A3 Prepared tooth for: Ceramic crown Gingival Retraction: Cord, Size 000 and 00, soaked in hemodent, two cord technique. Cord removal verified prior to discharge Final Impression taken with: [employer] Light Body Bite Registration taken with: Kitwarerint VPS Provisional fabricated with: Paradigm Temp Material and cemented with: TempBond Shade: A3 Lab used: NDX Lab Due Date: 11/02 POI given to patient with instructions for homecare, to avoid sticky or crunchy foods, and to call if temp crown becomes dislodged. All questions answered. Patient tolerated procedure well, and was discharged alert, oriented, and in stable condition. NV: #3 crown motorcycle delivery driver: Dia Michael Dentist: Jamey Hussein DMD documented in this encounter Plan of Treatment Upcoming Encounters Date Type Department Care Team (Late st Contact Info) Description 11/15/2024 3:00 PM EDT Office Visit [facility] ADULT DENTAL [address] [place] [address] Jamey Hussein DMD [address] [place] [address] 12/21/2024 3:00 PM EDT Office Visit [facility] ADULT DENTAL [address] [place] [address] Bozena Rader [address] [place] [address] 12/26/2024 2:00 PM EDT Office Visit [facility] MEDICINE [address] [place] [address] Tammi Burgess MD 230 [place] [address] Scheduled Orders Name Type Priority Associated Diagnoses Orde r Schedule DENTAL LAB FIXED Dental Routine Ordered: 10/21/2024 documented as of this encounter Procedures Procedure Name Priority Date/Time Associated Diagnosis Comments 3 CROWN PREP Routine 10/21/2024 2:00 PM EDT Full coverage crown needed for tooth at risk for fracture Dental caries 3 CORE BUILDUP, INCL ANY PINS WHEN REQ Routine 10/21/2024 2:00 PM EDT Full coverage crown needed for tooth at risk for fracture Dental caries CASE PRESENTATION, DETAILED AND EXTENSIVE TREATMENT PLANNING Routine 10/21/2024 2:00 PM EDT Full coverage crown needed for tooth at risk for fracture Dental caries documented in this encounter Visit Diagnoses Diagnosis Full coverage crown needed for tooth at risk for fracture- Primary Dental caries Unspecified dental caries documented in this encounter Additional Health Concerns Assessment Noted Time PHQ-9 Depression Total Score: 5 10/20/19 24 10:39 AM EDT documented as of this encounter Care Teams Audiology Technician Relationship Specialty Start Date End Date Tammi Burgess MD [address] [place] [address] PCP - General Internal Medicine 04/13/23 documented as of this encounter
--- OUTSIDE RECORDS SUMMARY | 2024-10-26 17:48 | XMS_ITS | Data Portability ---
Author Organization [place] [facility], Allergy Address [address] [place] [phone] Care Team Providers Care Stunt Double Name Role Phone [facility] Primary Care Provider Assessment Encounter Date [...] as needed for subjective changes in hearing. Not available 07/05/2024 11:53:16 Plan of Treatment [...] Organization Details Recorded Time Abnormal auditory perception [id number] Active 024 Claudia pollard [place] [facility] 11:26:51 Problem Notes None recorded. Procedures Surgical History Date Name Laterality Status Provider Name and Address Organization Details Recorded Time 07/05/20 24 Tympanometry (51489) completed Claudia Love [facility] 07/05/2024 11:26:42 07/05/20 24 [employer] (99379) completed Claudia Love [facility] 07/05/2024 11:26:38 Imaging Results Imaging Date Name Status LastModified by Organiz ation Details LastModified Time 07/05/2024 audiogram completed [facility] Information no t available 07/05/2024 14:07:50 Procedure Notes None recorded. Medical Equipment None Reported. Allergies Allergen ID Allergen Name Allergen Category Reaction Reaction Severity Criticality Documentation Date Start Date Code Code System Note Provider Name and Address Organization Details Recorded Time 279535 aspirin medicatio n Not available Not available Not available 07/05/2024 1191 RxNorm Martine pollard MA [facility] 11:36:59 Medications Name Sig Start Date [...] Details Last Updated DateTime 07/05/2024 157.48 cm 90435.86 g Martine Pearce [place] - [facility] 07/05/2024 11:36:51 Social History None recorded. Functional Status None recorded. Mental Status None recorded. Family History Nothing Reported. Medical History Condition Response GERD/Reflux Y Gynecological HistoryNo gynecological history recorded. Obstetrics History GPAL:G 0 P 0 0 0 0 Past Encounters Encounter ID Performer Location Encounter Start Date Encounter Closed Date Diagnosis/Indication Diagnosis SNOMED-CT Code Diagnosis ICD10 Code Diagnosis Note [id number] BALBIR HENDRICKSON MD [facility] [address] [address] 07/05/2024 10:26:51 07/05/2024 11:54:36 Abnormal auditory perception 94833825 H93.299 Audiologic al evaluation results: Right ear: [...] Melvin Member ID Guarantor Name 07/05/2024 1 [facility] Karen Og [id number] Karen Og Notes Date Note Type [...] remedies for hearing loss. BALBIR HENDRICKSON MD [address] [place] [address], [id number], [facility] 07/05/2024 11:53:35 OBGyn Episode No OBEpisode recorded.
== END 2024-10-26 16:21 | disposition home or self-care (01) ==
PROVIDERS: PCP Student in an Organized Health Care Education/Training Program; Visit Provider Student in an Organized Health Care Education/Training Program
DX: M47.816 Spondylosis without myelopathy or radiculopathy, lumbar region (principal)
CPT/HCPCS: 99213

== ENCOUNTER → 2024-10-26 15:39 | Outpatient (BNVA) | payer OTHER, SELFPAY | PROVIDERS: PCP Student in an Organized Health Care Education/Training Program; Visit Provider Student in an Organized Health Care Education/Training Program | DX: M47.816 Spondylosis without myelopathy or radiculopathy, lumbar region (principal); M51.360 Other intervertebral disc degeneration, lumbar region with discogenic back pain only; G89.29 Other chronic pain | CPT/HCPCS: 99212 ==

== ENCOUNTER 2024-10-31 09:35 | Outpatient (AMB) | payer OTHER, SELFPAY ==
[2024-10-31 09:44] VITALS: BMI 27.9
--- NOTE | 2024-10-31 09:44 | A.SPINEOV_ITS ---
Vital Signs 10/31/24 09:44 Height 5 ft 2.5 in Weight 155 lb BMI 27.9 Intake Visit Reasons: LBP Intake Note: Ms. Og is here today c/o low back pain. Frame Catcher Required: Yes Frame Catcher Name: Liam Mays (Spouse) Allergies aspirin [ASPIRIN] Allergy (Unknown, Verified 10/31/24 09:44) SWELLING, facial swelling Physical Exam Vital Signs: BMI result Body Mass Index 27.9 Assessment & Plan Assessment & Plan (1) Lumbar spondylosis: Code(s): M47.816 - Spondylosis without myelopathy or radiculopathy, lumbar region Category: Medical Plan Dear Dr Dixon, Thank you for referring Mrs Og to our office today. She is a very nice 54-year-old female who has had chronic low back pain for many years. 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 Through the years it has only gotten worse. It is particularly bad at night. She has a hard time turning over in bed. Standing and walking can also be uncomfortable. She localizes it to the center of her low back radiating out to the left side. There is nothing radiating down her left leg. She has no drop foot, numbness, cauda equina symptoms. She takes gabapentin and Motrin daily to help with the symptoms. She has had no conservative treatment to this point. She had an MRI showing some mild degenerative disc disease it was referred down to see us. PMH: She is reasonably healthy, history of recent right medial meniscus tear with subsequent repair, Bertolotti syndrome, uterine myoma, postmenopausal bleeding, hepatitis Social hx: She has not smoke, drink use any recreational drugs Medications: Divalproex, gabapentin, ibuprofen Allergies: Aspirin Physical exam: She is awake alert oriented no acute distress, strength is full in bilateral lower extremities, reflexes normal, gait is normal. Imaging review: Lumbar MRI shows some very mild degenerative disc disease with no obvious misalignment, fracture, spondylolisthesis, there is no Modic endplate changes. She has no evidence of disc herniation or nerve compression. Impression: 54-year-old female presents with chronic low back pain of unclear source, her MRI shows some mild degenerative disc disease but nothing surgical. She has had no conservative treatments at this point. I think the 1st place to start would be to have her see pain management colleagues and see if they have anything to offer her. I suspect that maybe some combination of muscular overuse as her job is very physical involves a lot of bending. I think it is going to be hard for her to work with physical therapy because of how physical her job is, but that might be a good place to start. I will defer to pain management how they would like to proceed. We would be happy to see her back down the road if something changes. Thank you for allowing us to care for your patient. The total time spent with this visit with this patient was 30 minutes reviewing history, physical exam, lumbar imaging review, and implementation of treatment plan or further diagnostic testing Dayday Key MD,PhD [facility] Orders: Referrals Pain Management Referral M47.816 - Spondylosis without myelopathy or radiculopathy, lumbar region Coding Level of Care Code New Pt Level 3 (09680) Diagnoses Lumbar spondylosis M47.816
--- OUTSIDE RECORDS SUMMARY | 2024-10-31 10:53 | XMS_ITS | Encounter Summary ---
Author Organization [employer] Address [address] [facility] 7t [place] [address] Care Team Providers Care Train Control Technician Name Role Phone Tammi Burgess MD Primary Care Pro vider Encounter Details Date Type Department Care Team ([facility] st Contact Info) Description 07/18/2024 Orders Only [facility] [address] [place], [place] [phone] ProviderChata MD Social History Tobacco Use Types [...] 1:55 PM EST Pelvic US ordered by PAPER CARRIER. Patient to fu results with PAPER CARRIER (Dr Espinoza). documented in this encounter Plan of Treatment Upcoming Encounters Date Type Department Care Team (Late st Contact Info) Description 11/15/2024 3:00 PM EDT Office Visit [facility] ADULT [facility]AL [address] [place] [address] Jamey Hussein, DMD [address] [place] [address] 12/21/2024 3:00 PM EDT Office Visit [facility] ADULT DENTAL [address] [place] [address] Prasanth, Bozena [address] [place] [address] 12/26/2024 2:00 PM EDT Office Visit [facility] MEDICINE [address] [place] [address] Tammi Burgess MD [address] [place] [address] documented as of this encounter Procedures Procedure [...] EST Narrative 08/09/2024 10:56 AM EST ? [facility] ?[address] ?[place] [address] ? Magnetic Resonance Report ? Signed ? Patient: Og,Karen M ?MR#: [id number] ?? 4 ? : 1970 ?Acct:[id number] ? Age/Sex: 54 / F ?ADM Date: 08/07/24 ? Loc: HO.MRI ? Attending Dr: Keyon Bowles MD ? Ordering Physician: Keyon Bowles MD ?? Date of Service: 08/07/24 ?? Procedure(s): MR knee LT wo con ?? Accession Number(s): [id number] ? cc: Tammi Burgess MD; Keyon Bowles [...] DD/ 1458 ? TD/TT: 08/07/24 1507 ? Assistant Professor Of Drama: ? Procedure Note Donnatinterpreter, Image - 08/09/2024 [place] [address] Magnetic Resonance Report Signed Patient: Karen Og [facility]#: [id number] 4 : 1970Acct:[id number] Age/Sex: 54 / FADM Date: 08/07/24 Loc: HO.MRI Attending Dr: Keyon Bowles MD Ordering Physician: Keyon Bowles MD Date of Service: 08/07/24 Procedure(s): MR knee LT wo con Accession Number(s): [id number] cc: Tammi Burgess MD; Keyon Bowles MD [...] 08/09/24 1053 DD/ 1458 TD/TT: 08/07/24 1507 Assistant Professor Of Drama: [facility] External Provider IMG MRI PROCEDURES Final Result * US Pelvis Transvaginal (08/02/2024 4:26 PM EST) Anatomical Region Laterality Modality Pelvis Ultrasound 08/02/2024 4:26 PM EST Narrative 08/02/2024 4:27 PM EST ? [facility] ?[address] ?[place] [address] ? Ultrasound Report ? Signed ? Patient: Og,Karen M ?MR#: [id number] ?? 4 ? : 1970 ?Acct:[id number] ? Age/Sex: 54 / F ?ADM Date: 08/01/25 ? Loc: HO.US ? Attending Dr: Juan Espinoza MD ? Ordering Physician: Juan Espinoza MD ?? Date of Service: 08/01/24 ?? Procedure(s): US pelvic and transvaginal ?? Accession Number(s): [id number] ? cc: Tammi Burgess MD; Juan Espinoza MD ? CLINICAL HISTORY: D25.9 - Leiomyoma of uterus, unspecified ? US pelvis transabdominal and transvaginal ? Comparison: US/ME/SR - US PELVIC AND TRANSVAGINAL - 09/28/23 [...] ? DD/ 25 ? TD/TT: 08/02/241625 ? Assistant Professor Of Drama: ? Procedure Note Donotuseinterpreter, Image - 08/02/[address] [address] Ultrasound Report Signed Patient: Karen Og MMR#: [id number] 4 : 1970Acct:[id number] Age/Sex: 54 / FADM Date: 08/01/24 Loc: HO.US Attending Dr: Juan Espinoza MD Ordering Physician: Juan Espinoza MD Date of Service: 08/01/24 Procedure(s): US pelvic and transvaginal Accession Number(s): [id number] cc: Tammi Burgess MD; Juan Espinoza MD CLINICAL HISTORY: D25.9 - Leiomyoma of uterus, unspecified US pelvis transabdominal and transvaginal Comparison: US/ME/SR - US PELVIC AND TRANSVAGINAL - 09/28/23 [...] 08/02/24 1626 DD/ 1626 TD/TT: 08/02/24 1626 Assistant Professor Of Drama: [facility] External Provider IMG US PROCEDURES Final Result * Hm Colonoscopy (05/28/2022 1:55 PM EDT) Historical Provider HEALTH MAINTENANCE Final Result documented in this encounter Visit Diagnoses Not on filedocumented in this encounter Additional Health Concerns Assessment Noted Time PHQ-9 Depression Total Score: 5 10/20/19 24 10:39 AM EDT documented as of this encounter Care Teams Train Control Technician Relationship Specialty Start Date End Date Tammi Burgess MD [address] [place] [phone] PCP - General Internal Medicine 04/13/23 documented as of this encounter
--- OUTSIDE RECORDS SUMMARY | 2024-10-31 10:53 | XMS_ITS | Encounter Summary ---
Author Organization [employer] Address [address] [facility] 7t [place] [address] Care Team Providers Care Exam Proctor Name Role Phone Tammi Burgess MD Primary Care Pro vider Encounter Details Date Type Department Care Team (Late st Contact Info) Description 08/06/2023 Orders Only [facility] MEDICINE [address] [place], [place] [phone] Judy Prieto MD [address] [place], [place] [phone] Acute pain of right knee (Primary Dx); [...] Description 11/15/2024 3:00 PM EDT Office Visit [facility] ADULT DENTAL [address] [place] [address] Jamey Hussein, DMD [address] [place] [address] 12/21/2024 3:00 PM EDT Office Visit [facility] ADULT DENTAL [address] [place] [address] Prasanth Bozena [address] [place] [address] 12/26/2024 2:00 PM EDT Office Visit [facility] MED[facility]INE [address] [place] [address] Tammi Burgess MD [address] [place] [address] documented as of this encounter Visit Diagnoses Diagnosis Acute pain of right knee- Primary Effusion of right knee Dislocation of right knee with medial meniscus tear, initial encounter documented in this encounter Additional Health Concerns Assessment Noted Time PHQ-9 Depression Total Score: 0 07/23/20 23 11:15 AM EST documented as of this encounter Care Teams Exam Proctor Relationship Specialty Start Date End Date Tammi Burgess MD [address] [place] [phone] PCP - General Internal Medicine 04/13/23 documented as of this encounter
--- OUTSIDE RECORDS SUMMARY | 2024-10-31 10:53 | XMS_ITS | Encounter Summary ---
Author Organization [employer] Address [address] [place] [address] [address] [place] [address] Care Team Providers Care Fish Rod Maker Name Role Phone HowardCharito carrizales Yue GARZA Primary Care Provider [phone]- [phone] Tammi Burgess MD Primary Care Pro vider Encounter Details Date Type Department Care Team (Latest Contact Info) Description 07/29/2018 Abstract [facility] CONVERSIONS Dental, Provider, DDS Social History [...] Description 11/15/2024 3:00 PM EDT Office Visit [facility] ADULT D[facility] [address] [place] [address] Jamey Hussein, JUDITH [address] [place] [address] 12/21/2024 3:00 PM EDT Office Visit [facility] ADULT DENTAL [address] [place] [address] Prasanth Bozena [address] [place] [address] 12/26/2024 2:00 PM EDT Office Visit [facility] MEDICINE [address] [place] [address] Tammi Burgess MD [address] [place], [place] [phone] documented as of this encounter Visit Diagnoses Not on filedocumented in this encounter Care Teams Fish Rod Maker Relationship Specialty Start Date End Date Charito Lawrence FNP PCP - General Family Medicine 05/17/21 04/12/23 Tammi Burgess MD [address] [place] [address] PCP - General Internal Medicine 04/13/23 documented as of this encounter
--- OUTSIDE RECORDS SUMMARY | 2024-10-31 10:53 | XMS_ITS | Encounter Summary ---
Author Organization [employer] Address [address] [facility] 7t [place] [address] Care Team Providers Care Corncob Pipe Manufacturing Supervisor Name Role Phone Tammi Burgess MD Primary Care Pro vider Reason for Visit * Reason Comments Med Refill Encounter Details Date Type Department Care Team ([facility] st Contact Info) Description 08/11/2024 Refill [facility] MED[facility] [address] [place] [address] Tammi Burgess MD [address] [place] [address] Social History Tobacco Use Types Packs/Day Years [...] Description 11/15/2024 3:00 PM EDT Office Visit [facility] ADULT D[facility]AL [address] [place] [address] Jamey Hussein, DMD [address] [place] [address] 12/21/2024 3:00 PM EDT Office Visit [facility] ADULT DENTAL [address] [place] [address] Prasanth Bozena [address] [place] [address] 12/26/2024 2:00 PM EDT Office Visit [facility] [address] [place] [address] Tammi Burgess MD [address] [place] [phone] documented as of this encounter Visit Diagnoses Not on filedocumented in this encounter Additional Health Concerns Assessment Noted Time PHQ-9 Depression Total Score: 5 10/20/19 24 10:39 AM EDT documented as of this encounter Care Teams [employer]ob [employer] Manufacturing Supervisor Relationship Specialty Start Date End Date Tammi Burgess MD [address] [place] [address] PCP - General Internal Medicine 04/13/23 documented as of this encounter
--- OUTSIDE RECORDS SUMMARY | 2024-10-31 10:53 | XMS_ITS | Clinical Summary ---
Author Organization [employer] Address [address] [facility] 7t [place] [address] Care Team Providers Care Deputy Coroner Investigator Name Role Phone Tammi Burgess MD Primary [...] cancer: Never smoker Eye: 02/2023 WNL at [facility] Dental: up to date Hernia [...] Encounters Date Type Department Care Team Description 10/29/[address] [facility] [address] [place] [address] Judy Prieto MD 10/21/2024 2:00 PM EDT Office Visit [facility] [address] [facility] [place] [address] Jamey Hussein, DMD Full coverage crown needed for tooth at risk for fracture (Primary Dx); Dental caries 10/10/[address] [facility] [address] [place] [address] Madai Hernandez RN 10/06/[address] [facility] [address] [place] [address] Tammi Burgess MD 10/04/[address] [facility] [address] [place] [address] Tammi Burgess MD May recall 10/01/2024 Orders Only [facility] External Provider, [facility] 08/29/2024 Orders Only GENERIC EXTERNAL DATA DEPARTMENT Provider, Generic External Data 08/11/[address] [facility] [address] [place] [address] Tammi Burgess MD from Last 3 Months [...] 11/15/2024 3:00 PM EDT Office Visit [facility] ADULT [facility] [address] [place] [address] Jamey Hussein, DMD [address] [place] [address] 12/21/2024 3:00 PM EDT Office Visit [facility] ADULT DENT[facility] [address] [place] [address] Ole Raderaris [address] [place] [address] 12/26/2024 2:00 PM EDT Office Visit [facility] [address] [place] [address] Tammi Burgess MD [address] [place] [address] Health Maintenance Due Date Last Done Comments CT Colonography 1970 FIT DNA/Cologuard 1970 FIT 1970 FOBT 1970 Sigmoidoscopy 1970 Pneumococcal Vaccine: 50+ Years (1 of 1 - PCV) 2020 COVID-19 Vaccine ( season) 2024 10/29/2021, 11/02/2020 Influenza Vaccine (#1) 2024 07/28/2018 Dental Oral Exam 09/18/2024 03/17/2024, , 07/28/2018 SDOH Screening 10/12/2024 10/13/2023 Depression Screening 10/19/2024 10/20/2023, 10/20/19 24 Diabetes: Hemoglobin A1C 12/04/2024 024, 02/07/2023, 02/22/2022 [...] caries associated with failed or defective dental taoism Full coverage crown needed for root canal-treated [...] EDT Narrative 10/03/2024 11:15 AM EDT ? [facility] ?[address] ?[place] [address] ? Magnetic Resonance Report ? Signed ? Patient: Earle,Karen M ?MR#: [id number] ?? 4 ? : 1970 ?Acct:[id number] ? Age/Sex: 54 / F ?ADM Date: 10/01/24 ? Loc: HO.MRI ? Attending Dr: Katheryn Dixon MD ? Ordering Physician: Katheryn Dixon MD ?? Date of Service: 10/01/24 ?? Procedure(s): MR lumbar spine wo con ?? Accession Number(s): [id number] ? cc: Katheryn Dixon MD; Tammi Burgess MD ? 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 Examination: MRI lumbar spine without intravenous contrast ? Comparison: CT/HI/SR - CT LUMBAR SPINE WO IV CON - 04/08/23 16:26 EDT ?? CR - LUMBAR SPINE 2TO 3 [id number] - 07/24/14 10:54 EST ? Findings: ? Plain radiograph correlation: developed non rib-bearing lumbar ?? vertebra was [...] DD/ 1114 ? TD/TT: 10/03/24 1114 ? Guinea Pig Breeder: ? Procedure Note Vin, Image - 10/03/2024 [place] [address] Magnetic Resonance Report Signed Patient: Karen Og MMR#: [id number] 4 : 1970Acct:[id number] Age/Sex: 54 / FADM Date: 10/01/24 Loc: HO.MRI Attending Dr: Katheryn Dixon MD Ordering Physician: Katheryn Dixon MD Date of Service: 10/01/24 Procedure(s): MR lumbar spine wo con Accession Number(s): [id number] cc: Katheryn Dixon MD; Tammi Burgess MD CLINICAL HISTORY: M46.90 - Unspecified inflammatory spondylopathy, siteunspecified Examination: MRI lumbar spine without intravenous contrast Comparison: CT/HI/SR - CT LUMBAR SPINE WO IV CON - 04/08/23 16:26 EDT CR - LUMBAR SPINE 2TO 3 [id number] - 07/24/14 10:54 EST Findings: Plain radiograph [...] 10/03/24 1115 DD/ 1114 TD/TT: 10/03/24 1114 Guinea Pig Breeder: [facility] External Provider IMG MRI PROCEDURES Edited Result - Final * Hematoxylin and Eosin Stain (08/29/2024 4:03 PM EST) 08/29/2024 4:03 PM EST 08/30/2024 7:40 AM EST Narrative [facility] - 08/31/2024 12:42 PM EST ----- ------- Name: Karen Og ?Age/Sex: 54/F ? : 1970 Unit#: [id number] ?? Attend Dr: Juan Espinoza MD ?Re08/29/24 ?Status: DEP REF ? Location: HO.LNP ?Disch: ? ----- ------- SPEC : [id number] ?RECD: 08/30/24-739 ? STATUS: ??SOUT ? REQ NUM: [id number] ? MORGAN: 08/29/24-1602 ? SUBM DR: Juan [...] To: ?? Tammi Burgess MD ?? [address] [facility] ?? [place] [address] ?? [phone] ?? Juan Espinoza MD ?? [facility] [place] [facility] ?? [address] [facility] [address] ?? [place] [address] ?? [phone] ----- ------- Signed (signature on file) Katlyn Viveros 08/31/24 1242 ? ----- ------- ? END OF REPORT ? us Generic External Data Provider LAB BLOOD ORDERAB LES Final Result [facility] [address] [place] [address] [phone] * MR Knee w/o Contrast Left (08/07/2024 2:58 PM EST) Anatomical Region Laterality Modality Magnetic Resonan ce 08/07/2024 2:58 PM EST Narrative 08/09/2024 10:56 AM EST ? [facility] ?[address] [place] [address]. ?[place] [address] ? Magnetic Resonance Report ? Signed ? Patient: Karen Og ?MR#: [id number] ?? 4 ? : 1970 ?Acct:[id number] ? Age/Sex: 54 / F ?ADM Date: 08/07/24 ? Loc: HO.MRI ? Attending Dr: Keyon Bowles MD ? Ordering Physician: Keyon Bowles MD ?? Date of Service: 08/07/24 ?? Procedure(s): MR knee LT wo con ?? Accession Number(s): [id number] ? cc: Tammi Burgess MD; Keyon Bowles [...] DD/ 1458 ? TD/TT: 08/07/24 1507 ? Guinea Pig Breeder: ? Procedure Note Olu Banuelos - 08/09/[address] [address] Magnetic Resonance Report Signed Patient: Karen Og MMR#: [id number] 4 : 1970Acct:[id number] Age/Sex: 54 / FADM Date: 08/07/24 Loc: HO.MRI Attending Dr: Keyon Bowles MD Ordering Physician: Keyon Bowles MD Date of Service: 08/07/24 Procedure(s): MR knee LT wo con Accession Number(s): [id number] cc: Tammi Burgess MD; Keyon Bowles MD [...] Novak MD in OV> 08/09/24 1053 DD/ 1263 TD/TT: 08/07/24 1502 Guinea Pig Breeder: us [facility] External Provider IMG MRI PROCEDURES Final Result * US Pelvis Transvaginal (08/02/2024 4:26 PM EST) Anatomical Region Laterality Modality Pelvis Ultrasound 08/02/2024 4:26 PM EST Narrative 08/02/2024 4:27 PM EST ? [facility] ?[address] ?[place] [address] ? Ultrasound Report ? Signed ? Patient: Og,Karen M ?MR#: [id number] ?? 4 ? : 1970 ?Acct:[id number] ? Age/Sex: 54 / F ?ADM Date: 08/01/24 ? Loc: HO.US ? Attending Dr: Juan Espinoza MD ? Ordering Physician: Juan Espinoza MD ?? Date of Service: 08/01/24 ?? Procedure(s): US pelvic and transvaginal ?? Accession Number(s): [id number] ? cc: Tammi Burgess MD; Juan Espinoza [...] in OV> ? 08/02/24 1626 ? DD/ ? TD/TT: 08/02/24 1626 ? Guinea Pig Breeder: ? Procedure Note Dondavieter, Image - 08/02/2024 [place] [address] Ultrasound Report Signed Patient: Karen Og MMR#: [id number] 4 : 1970Acct:[id number] Age/Sex: 54 / FADM Date: 08/01/24 Loc: HO.US Attending Dr: Juan Espinoza MD Ordering Physician: Juan Espinoza MD Date of Service: 08/01/24 Procedure(s): US pelvic and transvaginal Accession Number(s): [id number] cc: Tammi Burgess MD; Juan Espinoza MD [...] OV> 08/02/24 1626 DD/ 25 TD/TT: 08/02/241625 Guinea Pig Breeder: [facility] External Provider IMG US PROCEDURES Final Result * Hepatitis Panel, General (03/08/2024 11:43 AM EDT) Hepatitis A IgM Nonreactive Nonreactive [facility] Comment:IgM antibodies to LEMUS V not detected; does not exclude earlyacute or recovered HAV infection. ~Hepatitis B Surface Antibody REACTIVE Nonreactive [facility] Comment:REACTIVE: > 11.99 mI U/mL Hepatitis B Core Antibody Nonreactive Nonreactive [facility] Hepatitis C Antibody Nonreactive Nonreactive [facility] Comment:Antibodies to HCV no t detected; does not exclude early acuteHCV infection. Hepatitis B Surface Ag Negative Negative [facility] 03/08/2024 11:4 3 AM EDT 03/08/2024 11:43 AM EDT Generic External Data Provider LAB BLOOD ORDERAB LES Final Result [facility] [address] [place] [phone] * BI Mammogram Screening Tomosynthesis Bilateral (02/26/2024 9:15 AM EDT) Anatomical Region Laterality Modality Breast Bilateral Mammography 02/26/2024 9:15 AM EDT Narrative 03/28/2024 11:07 PM EDT ? [facility] ?[address] ?[place] [address] ? Mammography Report ? Signed ? Patient: Og,Karen M ?MR#: [id number] ?? 4 ? : 1970 ?Acct:[id number] ? Age/Sex: 53 / F ?ADM Date: 02/26/24 ? Loc: HO.US ? Attending Dr: Tammi Sorenson MD ? Ordering Physician: Tammi Burgess MD ?Re ?? sults: 1Negative ? Date of Service: 02/26/24 ?Follow Up: 1 Year From Orig ?? inal Mammogram ? Procedure(s): MM tomosynthesis screening BI ?? Accession Number(s): [id number] ? cc: Tammi Burgess MD ? EXAMINATION: [...] ? DD/ 4 ? TD/TT: 02/26/[address] ? Guinea Pig Breeder: ? Procedure Note Vin, Image - 03/28/[address] [address] Mammography Report Signed Patient: Karen Og MMR#: [id number] 4 : 1970Acct:[id number] Age/Sex: 53 / FADM Date: 02/26/24 Loc: HO.US Attending Dr: Tammi Sorenson MD Ordering Physician: Tammi Burgess sults: 1Negative Date of Service: 02/26/24Follow Up: 1 Year From Orig inal Mammogram Procedure(s): MM tomosynthesis screening BI Accession Number(s): [id number] cc: Tammi Burgess MD EXAMINATION: MM SCREENING [...] in OV> 03/28/244 DD/ 4 TD/TT: 02/26/[address] Guinea Pig Breeder: Tammi Sorenson MD IMG BI PROCEDURES Final Result * HIV-1/2 Antigen and Antibodies, Fourth Generation, with Reflexes (12/05/2023 7:46 AM EDT) HIV AB/AG Nonreactive Nonreactive [facility] Comment:HIV-1 p24 Ag and/or HIV-1/HIV-2 Ab not detected.A test result that is nonreactive does not exclude thepossibility of exposure to or infection with HIV-1 and/orHIV-2. Nonreactive results in this assay for individualswith prior exposure to HIV-1 and/or HIV-2 may be due toantigen and antibody levels that are below the limit ofdetection of this assay.The Lulu HIV Ag/Ab Combo assay result andsupplemental assay results should be interpreted inconjunction with the patient's clinical presentation,history and other laboratory results. If the results areinconsistent with clinical evidence, additional testing issuggested to confirm the result. Blood Venous blood specimen / Unknown 12/05/2023 7:46 AM EDT 12/05/2023 7:46 AM EDT us Tammi Sorenson MD LAB BLOOD ORDERAB LES Final Result Performing Organization Address [facility]/ZIP Co de Phone Number [facility] [address] [place] [address] [phone] * Hemoglobin A1c (12/05/2023 7:46 AM EDT) Hemoglobin A1c 5.7 <6.0 % [facility] Comment:Hemoglobin A1C Refer ence Range Adults: 4.8 - 6.0 % Non diabetic: < 6.0 % Goal: < 7.0 %Additional Action Suggested: > 8.0 %Note: Hemoglobin A1c results are invalid for patients with abnormal amounts of HbF. Blood transfusions may impact the HbA1c concentration in the patient sample. Estimated Average Glucose 117 mg/dL [facility] Comment:eAG = Estimated ave rage glucose which is %A1C expressed asaverage glucose, using the formula of the H0L-YbzjethDdxvcdi Glucose study (ADAG), Diabetes Care, Vol.31,#8,Feb. 2007 Blood Venous blood specimen / Unknown 12/05/2023 7:46 AM EDT 12/05/2023 7:46 AM EDT us Tammi Sorenson MD LAB BLOOD ORDERAB LES Final Result Performing Organization Address City/[facility]/ZIP Co de Phone Number [facility] [address] [place] [address] [phone] * (ABNORMAL) Lipid Panel, Standard (12/05/2023 7:46 AM EDT) Triglycerides 144 <150 mg/dL [facility] Comment:Desirable Triglyceri de: less than 150 mg/dLBorderline High Triglyceride 150-199 mg/dLHigh Triglyceride: 200-499 mg/dLVery High Triglyceride: greater than or equal to 5OO mg/dL Cholesterol 200(H) <200 mg/dL [facility] Comment:Desirable Cholestero l: less than 200 mg/dLBorderline High Cholesterol: 200-239 mg/dLHigh Cholesterol: greater than 239 mg/dL LDL Cholesterol Calculated 121(H) <100 mg/dL [facility] Comment:Desirable LDL: less than 100 mg/dLNear Optimal/Above Optimal LDL: 110- 129 mg/dLBorderline High LDL: 130-159 mg/dLHigh LDL: 160-189 mg/dLVery High LDL: greater than or equal to 190 mg/dL HDL Cholesterol 51 >40 mg/dL [facility] Comment:Desirable HDL: great er than 40 mg/dL Note: This HDL assay may give artificially low results in patients with liver disease. Blood Venous blood specimen / Unknown 12/05/2023 7:46 AM EDT 12/05/2023 7:46 AM EDT Tammi Sorenson MD LAB BLOOD ORDERAB LES Final Result [facility] [address] [place] [phone] * Hm Colonoscopy (05/28/2022 1:55 PM EDT) Historical Provider HEALTH MAINTENANCE Final Result * HPV E6/E7 RFLX JACOB 16 18/45 (08/15/2021 1:40 PM EST) HPV 16 RNA TNP [facility] HPV 18/45 RNA TNP [facility] HPV E6 E7 ADD TNP [facility] HPV mRNA E6/E7 rflx Not Detected Not Detected [facility] Comment: Methodology: Plate Drying Machine Tender-Mediated Amplification This assay detects E6/E7 viral messenger RNA (mRNA) from 14 high-risk HPV types (16,18,31,33,35,39,45,51,52,56,58,59,66,68). The analytical performance characteristics of this assay have been determined by [employer]. The modifications have not been cleared or approved by the FDA. This assay has been validated pursuant to the CLIA regulations and is used for clinical purposes. For additional information, please refer to http://education.[employer]/faq/RGS613f6 (This link if provided for information/ educational purposes only.) THIS TEST WAS PERFORMED AT: [facility] [address] [place], [place] ??[phone] AMY BLANCAS MD 08/15/2021 1:40 PM EST us Historical Provider HISTORICAL/NON ORDERABLE LABS Final Result [facility] [address] [place] [address], * THINPREP PAP (01/11/2021 11:51 AM EDT) [...] historic and ?? current clinical information. ?? Supervising Producer : SEE COMMENT [facility] Comment: GSG, CT(ASCP) CT screening location: [address] ??[address] Interpretation/R esult: Negative for intraepithelial lesion or malignancy. [facility] LMP: NONE GIVEN [facility] Prev. BX: NONE GIVEN [facility] Prev. PAP: NONE GIVEN [facility] SOURCE: None given [facility] Statement Of Adequacy: SEE COMMENT [facility] Comment: Satisfactory for evaluation. Endocervical/transformation zone component present. 01/11/2021 11:5 1 AM EDT us Historical Provider MD LAB PATHOLOGY ORDERABLES Final Result [facility] [address] from Last 3 Months or Most Recently Relevant to Health Maintenance Insurance [employer] [id number] DENTAL - [employer] (MEDICAID) Care Teams Deputy Coroner Investigator Relationship Specialty Start Date End Date Tammi Burgess MD [address] [place] [address] PCP - General Internal Medicine 04/13/23
--- OUTSIDE RECORDS SUMMARY | 2024-10-31 10:53 | XMS_ITS | Encounter Summary ---
Author Organization [employer] Address [address] [place] [address] [address], [place] [address] Care Team Providers Care Spring Manufacturing Set Up Technician Name Role Phone Charito Lawrence Yue GARZA Primary Care Provider [phone] Tammi Burgess MD Primary Care Pro vider Encounter Details Date Type Department Care Team (Late st Contact Info) Description 03/31/2023 Abstract [facility] ADULT DENTAL [address] [place], [place] [phone] Jamey Hussein, JUDITH [address] [place] [address] Social History Tobacco Use Types Packs/Day Years [...] Description 11/15/2024 3:00 PM EDT Office Visit [facility] ADULT DENTAL [address] [place], [place] [phone] Jamey Hussein, DMD [address] [place] [address] 12/21/2024 3:00 PM EDT Office Visit [facility] ADULT DENTAL [address] [place], [place] [phone] Ole Raderaris [address] [place] [address] 12/26/2024 2:00 PM EDT Office Visit [facility] MEDICINE [address] [place] [address] Tammi Brugess MD [address] [place], [place] [phone] documented as of this encounter Visit Diagnoses Not on filedocumented in this encounter Care Teams [employer] Set Up Technician Relationship Specialty Start Date End Date Charito Lawrence FNP PCP - General Family Medicine 05/17/21 04/12/23 Tammi Burgess MD [address] [place] [phone] PCP - General Internal Medicine 04/13/23 documented as of this encounter
--- OUTSIDE RECORDS SUMMARY | 2024-10-31 10:53 | XMS_ITS | Encounter Summary ---
Author Organization [employer] Address [address] [place] [address] [address] [place] [address] Care Team Providers Care Cloth Weigher Name Role Phone Tammi Burgess MD Primary Care Pro vider Reason for Visit * Reason Onset Date Comments Nurse Triage 07/16/2023 Encounter Details Date Type Department Care Team ([facility] st Contact Info) Description 07/16/2023 Telephone [facility] [address] [place] [address] Tammi Burgess MD [address] [place] [address] Nurse Triage Social History Tobacco Use Types [...] 07/16/2023 4:32 PM EST Triage call with [place] [id number] Pt requests for Pt to speak for Pt. Pt has acute right knee pain. Pt has been seen in [facility] 07/09/23. Pt was prescribed tylenol 500mg, brace, voltaren gel and xrays. Xrays have been done. Pt isasking what xray results are narrative writer advised that there is evidence of [...] 3:00 PM EDT Office Visit [facility] ADULT D[facility] [address] [facility] [place] [address] Jamey Hussein, DMD [address] [place] [address] 12/21/2024 3:00 PM EDT Office Visit [facility] ADULT D[facility] [address] [place] [address] Bozena Rader [address] [place] [address] 12/26/2024 2:00 PM EDT Office Visit [facility] [address] [place] [address] Tammi Burgess MD [address] [place] [phone] documented as of this encounter Visit Diagnoses Not on filedocumented in this encounter Care Teams Cloth Weigher Relationship Specialty Start Date End Date Tammi Burgess MD [address] [place] [phone] PCP - General Internal Medicine 04/13/23 documented as of this encounter
--- OUTSIDE RECORDS SUMMARY | 2024-10-31 10:53 | XMS_ITS | Encounter Summary ---
Author Organization [id number] Address [address] [facility] 7t [place] [address] Care Team Providers Care Bone Tender Name Role Phone Tammi Burgess MD Primary Care Pro vider Reason for Visit * Reason Comments Med Refill Encounter Details Date Type Department Care Team ([facility] st Contact Info) Description 10/29/2024 Refill [facility] [address] [place], [place] [phone] Judy Prieto MD [address] [place], [place] [phone] Social History Tobacco Use Types Packs/Day Years [...] Visit [facility]ULT [facility] [address] [place], [place] [phone] Jamey Hussein, DMD [address] [place] [address] 12/21/2024 3:00 PM EDT Office Visit [facility] ADULT DENTAL [address] [place] [address] Prasanth Bozena [address] [place] [address] 12/26/2024 2:00 PM EDT Office Visit [facility] [address] [place] [address] Tammi Burgess MD [address] [place] [address] documented as of this encounter Visit Diagnoses Not on filedocumented in this encounter Additional Health Concerns Assessment Noted Time PHQ-9 Depression Total Score: 5 10/20/19 24 10:39 AM EDT documented as of this encounter Care Teams Bone Tender Relationship Specialty Start Date End Date Tammi Burgess MD [address] [place] [phone] PCP - General Internal Medicine 04/13/23 documented as of this encounter
== END 2024-10-31 10:13 | disposition home or self-care (01) ==
LOC: HO.HNS 09:36
PROVIDERS: PCP Student in an Organized Health Care Education/Training Program; Referring Provider Student in an Organized Health Care Education/Training Program; Visit Provider Physician Assistant
DX: M47.816 Spondylosis without myelopathy or radiculopathy, lumbar region (principal)
CPT/HCPCS: 99203

== ENCOUNTER → 2024-10-31 09:35 | Outpatient (BNVA) | payer OTHER, SELFPAY | PROVIDERS: PCP Student in an Organized Health Care Education/Training Program; Referring Provider Student in an Organized Health Care Education/Training Program; Visit Provider Physician Assistant | DX: M47.816 Spondylosis without myelopathy or radiculopathy, lumbar region (principal) | CPT/HCPCS: 99202 ==

== ENCOUNTER 2024-11-16 09:59 | Outpatient (AMB) | payer OTHER, SELFPAY ==
--- NOTE | 2024-11-16 10:05 | MHC.OFFVIS ---
Vital Signs 11/16/24 10:06 Height 5 ft 2.5 in Weight 254 lb BMI 45.7 BP 115/69 Blood Pressure Location Lt brachial Position Sitting Respiration 16 Pulse 91 Pulse Source Pulse Oximeter Pulse Oximetry (%) 97 Oxygen Delivery Method Room Air Intake Visit Reasons: Spondylosis Without Myelopathy or Radiculopathy Account Development Executive Required: Yes Account Development Executive Services: Account Development Executive Offered & Declined Account Development Executive Name: Prefers gokul to translate Allergies aspirin [ASPIRIN] Allergy (Unknown, Verified 11/16/24 10:07) SWELLING, facial swelling Medication List - Last Reconciled 11/16/24 by Enedelia Quispe LPN clonazepam 0.5 mg PO BEDTIME cyclobenzaprine 5 mg PO BEDTIME PRN dicyclomine 10 mg PO TID divalproex (Depakote) 750 mg (1.5 x 500 mg) PO BID 30 days famotidine 20 mg PO BID gabapentin 300 mg PO TID lidocaine 5% patches topical triamcinolone acetonide 0.1% appl topical HPI HPI Spondylosis Without Myelopathy or Radiculopathy: Details: History of Present Illness The patient is a 54-year-old female presenting for the management of lower back pain. The pain is localized to the left side, associated with lumbosacral spondylosis. The pain is chronic and has been attributed to bone structural abnormalities in the lumbar spine which cause rubbing against each other. 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 The patient reports persistent pain that has required previous interventions, including consideration of facet joint injections and medication for anxiety and pain management. She experiences significant discomfort that affects her sleep, and the pain seems to escalate during the night, rendering regular daily activities challenging. Pain Description - Onset: Chronic - Quality: Persistent pain with rubbing sensations between bones - Location: Left side of lower back, close to the L4-5, L5-S1 region - Exacerbating Factors: Pressure applied to left side - Alleviating Factors: Pain management plan under discussion, with proposed facet injections - Interference: Sleeping difficulty; potential impact on work post-surgery Physical Exam - Spine- Tenderness on palpation, left-side lumbar region - Extension reproduces pain Results - Imaging: CT scan showing abnormal bone contact in the left lumbar region, forming an atypical joint Pain Management - Affect: Crying episodes at night and difficulty sleeping due to pain - Analgesia: Prescription of anxiety and pain medication, specific opioids noted for pre-injection use - Adverse Effects: None discussed - Activities of Daily Living: Pain interferes with sleep and mobility; injections and physical therapy discussed to manage - Aberrant Drug Related Behaviors: Patient adheres to prescribed medication use with no noted deviations [facility] Medical History Osteoarthritis of knees, bilateral Migraine Anxiety disorder Fibromyalgia Seizure Surgical History History of cholecystectomy History of tubal ligation Family History Maternal Grandmother Diabetes Father HTN (hypertension) Mother HTN (hypertension) Social History Household Members: Spouse Household Members Other:: son Housing: House Alcohol intake: current Alcohol intake frequency: holidays/special occasions only Patient Tobacco Use Status: Never used Tobacco Current occupational status: employed 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 Sexual orientation: Straight/Heterosexual Gender identity: Female Female Reproductive History Menstrual Age of Menarche: 10 Physical Exam Vital Signs: Last Vital Signs Pulse 91 11/16/24 10:06 Resp 16 11/16/24 10:06 BP 115/69 11/16/24 10:06 Pulse Ox 97 11/16/24 10:06 Oxygen Delivery Method Room Air 11/16/24 10:06 BMI result Body Mass Index 45.7 Assessment & Plan Assessment & Plan (1) Lumbar spondylosis: Code(s): M47.816 - Spondylosis without myelopathy or radiculopathy, lumbar region Category: Medical (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 - Utilize Clonazepam and prescribed pain medication prior to the procedure for patient comfort. - Perform the injection one month following her meniscus surgery to allow time for recovery. - Regular follow-ups to assess the effectiveness of pain management in daily functioning. Patient was informed and verbally consented to the use of an ambient scribe for clinic note documentation during this visit. Discussion Notes During our discussion, I explained the use of facet joint injections to manage chronic lower back pain due to lumbosacral spondylosis. The patient was reassured that while this condition cannot be completely resolved, injections could significantly reduce pain. We discussed the use of medications, including Clonazepam, as preparatory measures for injection to alleviate anxiety. I addressed potential benefits of the injections and agreed with the patient to schedule the injection about a month post her knee surgery, allowing enough recovery time. The need for ongoing monitoring and modifications to treatment strategy based on patient progress was emphasized. Patient Instructions - Take prescribed anxiety and pain medication one to two hours before the injection. - Adhere to scheduled appointment for injection after knee surgery. - Notify the clinic if there's any change in symptoms or pain increases substantially. - Rest and minimize activities that worsen pain until procedure is completed. - Schedule for a follow-up appointment in December. Medications: New oxycodone Once pre-procedure 10 mg PO ONCE PRN 1 tab 0RF pain Coding Level of Care Code Est Pt Level 4 (37357) Diagnoses Lumbar spondylosis M47.816 Bertolotti's syndrome Q76.49 Chronic bilateral low back pain without sciatica M54.50; G89.29 Back pain laterality: bilateral Sciatica presence: without sciatica
[2024-11-16 10:06] VITALS: BP 115/69; PULSE 91; RESP 16; O2SAT 97; BMI 45.7
--- OUTSIDE RECORDS SUMMARY | 2024-11-16 11:26 | XMS_ITS | Encounter Summary ---
Author Organization [employer] Address [address] [facility] [address] [place] [address] Care Team Providers Care Blister Packaging Machine Operator Name Role Phone Tammi Burgess MD Primary Care Pro vider Reason for Visit * Reason Comments Sayner Encounter Details Date Type Department Care Team ([facility] st Contact Info) Description 11/15/2024 3:00 PM EDT Office Visit [facility] ADULT DENTAL [address] [place], [place] [phone] Jamey Hussein, DMD [address] [place], [place] [phone] Full coverage crown needed for tooth at risk for fracture (Primary Dx) Social History Tobacco Use Types Packs/Day Years [...] Progress Notes * Jamey Hussein DMD - 11/15/2024 3:00 PM EDT Patient ID: Karen Og is a 54 y.o. female. Time Out: Timeout Date: 11/15/24, Timeout Time: 1509 (Sayner Delivery #3) Location: [facility] Tooth: #3 Procedure: Sayner Verified the above with patient, escrow assistant, and provider. Confirmed via patient's chart, intraorally and by radiographs. Web Application Developer: Yes. Language: Japanese. Web Application Developer's Name: Dia HINOJOSA Chief Complaint Patient presents with Sayner Medical Hx: Vitals: There were no vitals taken for this visit. Medications, Med Hx reviewed with patient and updated in chart. Consent Obtained: The risks, benefits, indications, potential complications, and alternatives were explained to the patient and informed consent was obtained with good understanding. Treatment Provided: Dental procedures in this visit D2740 - CROWN - PORCELAIN/CERAMIC 3 (Completed) Service provider: Jamey Hussein DMD Billing provider: Jamey Hussein DMD [id number] - CASE PRESENTATION, DETAILED AND EXTENSIVE TREATMENT PLANNING (Completed) Service provider: Jamey Hussein DMD Billing provider: Jamey Hussein DMD No anesthesia needed Isolation: high speed suction and cotton rolls Removed Provisional and cleaned excess cement, pumiced tooth as needed. Tried on final temple Verified interproximal contacts and margins BW taken to confirm margins and contacts Occlusion adjusted as needed Tooth Treatment: Gluma applied Cemented with: Relyx Unicem Post op BW taken Cleaned excess cement, flossed Patient satisfied with comfort and esthetics. POI given. Patient discharged alert, oriented, and in stable condition NV: #8,9 crown preps Floral Assistant: Dia Michael Dentist: Jamey Hussein DMD documented in this encounter Plan of Treatment Upcoming Encounters Date Type Department Care Team (Late st Contact Info) Description 12/21/2024 3:00 PM EDT Office Visit [facility] ADULT DENTAL [address] [place] [address] [phone] Prasanth, Bozena [address] [place] [address] 12/26/2024 2:00 PM EDT Office Visit [facility] MEDICINE [address] [place] [phone] Tammi Burgess MD [address] [place] [phone] documented as of this encounter Procedures Procedure Name Priority Date/Time Associated Diagnosis Comments 3 CROWN - PORCELAIN/CERAMIC Routine 11/15/2024 3:00 PM EDT Full coverage crown needed for tooth at risk for fracture CASE PRESENTATION, DETAILED AND EXTENSIVE TREATMENT PLANNING Routine 11/15/2024 3:00 PM EDT Full coverage crown needed for tooth at risk for fracture documented in this encounter Visit Diagnoses Diagnosis Full coverage crown needed for tooth at risk for fracture- Primary documented in this encounter Additional Health Concerns Assessment Noted Time PHQ-9 Depression Total Score: 5 10/20/19 24 10:39 AM EDT documented as of this encounter Care Teams Blister Packaging Machine Operator Relationship Specialty Start Date End Date Tammi Burgess MD [address] [place] [address] [phone] PCP - General Internal Medicine 04/13/23 documented as of this encounter
--- OUTSIDE RECORDS SUMMARY | 2024-11-16 11:26 | XMS_ITS | Encounter Summary ---
Author Organization [employer] Address [address] [facility] [address] [place] [address] Care Team Providers Care Track Helper Name Role Phone Tammi Burgess MD Primary Care Pro vider Reason for Visit * Reason Comments Med Refill Encounter Details Date Type Department Care Team ([facility] st Contact Info) Description 08/11/2024 Refill [facility] MEDICINE [address] [place] [address] Tammi Burgess MD [address] [place] [address] Social History Tobacco Use Types Packs/Day Years [...] Description 12/21/2024 3:00 PM EDT Office Visit [facility] ADULT DENTAL [address] [place] [address] Bozena Rader [address] [place] [address] 12/26/2024 2:00 PM EDT Office Visit [facility] MEDICINE [address] [place] [address] Tammi Burgess MD [address] [place] [phone] documented as of this encounter Visit Diagnoses Not on filedocumented in this encounter Additional Health Concerns Assessment Noted Time PHQ-9 Depression Total Score: 5 10/20/19 24 10:39 AM EDT documented as of this encounter Care Teams Track Helper Relationship Specialty Start Date End Date Tammi Burgess MD [address] [place] [address] [phone] PCP - General Internal Medicine 04/13/23 documented as of this encounter
--- OUTSIDE RECORDS SUMMARY | 2024-11-16 11:26 | XMS_ITS | Encounter Summary ---
Author Organization [employer] Address [address] [facility] [address] [place] [address] Care Team Providers Care Suede Brusher Name Role Phone Tammi Burgess MD Primary Care Pro vider Encounter Details Date Type Department Care Team ([facility] st Contact Info) Description 07/18/2024 Orders Only [facility] MEDICINE [address] [place], [place] [phone] ProviderChata MD Social History Tobacco Use Types [...] 1:55 PM EST Pelvic US ordered by JIRA ADMINISTRATOR. Patient to fu results with JIRA ADMINISTRATOR (Dr Espinoza). documented in this encounter Plan of Treatment Upcoming Encounters Date Type Department Care Team (Late st Contact Info) Description 12/21/2024 3:00 PM EDT Office Visit [facility] ADULT DENTAL [address] [place] [phone] Prasanth, Bozena [address] [place] [address] 12/26/2024 2:00 PM EDT Office Visit [facility] MEDICINE [address] [place] [phone] Tammi Burgess MD [address] [place], [place] [phone] documented as of this encounter Procedures Procedure [...] EST Narrative 08/09/2024 10:56 AM EST ? [facility] ?[address] ?[place] [address] ? Magnetic Resonance Report ? Signed ? Patient: Og,Karen M ?MR#: [id number] ?? 4 ? : 1970 ?Acct:[id number] ? Age/Sex: 54 / F ?ADM Date: 08/07/24 ? Loc: HO.MRI ? Attending Dr: Keyon Bowles MD ? Ordering Physician: Keyon Bowles MD ?? Date of Service: 08/07/24 ?? Procedure(s): MR knee LT wo con ?? Accession Number(s): [id number] ? cc: Tammi Burgess MD; Keyon Bowles [...] DD/ 1458 ? TD/TT: 08/07/24 1507 ? Chemist: ? Procedure Note Pariter, Image - 08/09/2024 [place] [address] Magnetic Resonance Report Signed Patient: Karen Og MMR#: [id number] 4 : 1970Acct:[id number] Age/Sex: 54 / FADM Date: 08/07/24 Loc: HO.MRI Attending Dr: Keyon Bowles MD Ordering Physician: Keyon Bowles MD Date of Service: 08/07/24 Procedure(s): MR knee LT wo con Accession Number(s): [id number] cc: Tammi Burgess MD; Keyon Bowles MD [...] 08/09/24 1053 DD/ 1458 TD/TT: 08/07/24 1507 Chemist: [facility] External Provider IMG MRI PROCEDURES Final Result * US Pelvis Transvaginal (08/02/2024 4:26 PM EST) Anatomical Region Laterality Modality Pelvis Ultrasound 08/02/2024 4:26 PM EST Narrative 08/02/2024 4:27 PM EST ? [facility] ?[address] ?[place] [address] ? Ultrasound Report ? Signed ? Patient: Og,Karen M ?MR#: [id number] ?? 4 ? : 1970 ?Acct:[id number] ? Age/Sex: 54 / F ?ADM Date: 01/06/25 ? Loc: HO.US ? Attending Dr: Juan Espinoza MD ? Ordering Physician: Juan Espinoza MD ?? Date of Service: 08/01/24 ?? Procedure(s): US pelvic and transvaginal ?? Accession Number(s): [id number] ? cc: Tammi Burgess MD; Juan Espinoza MD ? CLINICAL HISTORY: D25.9 - Leiomyoma of uterus, unspecified ? US pelvis transabdominal and transvaginal ? Comparison: US/AL/SR - US PELVIC AND TRANSVAGINAL - 09/28/23 [...] DD/ 1626 ? TD/TT: 08/02/24 1626 ? Chemist: ? Procedure Note Olu Banuelos - 08/02/[address] [address] Ultrasound Report Signed Patient: Karen Og MMR#: [id number] 4 : 1970Acct:[id number] Age/Sex: 54 / FADM Date: 08/01/24 Loc: HO.US Attending Dr: Juan Espinoza MD Ordering Physician: Juan Espinoza MD Date of Service: 08/01/24 Procedure(s): US pelvic and transvaginal Accession Number(s): [id number] cc: Tammi Burgess MD; Juan Espinoza MD CLINICAL HISTORY: D25.9 - Leiomyoma of uterus, unspecified US pelvis transabdominal and transvaginal Comparison: US/AL/SR - US PELVIC AND TRANSVAGINAL - 09/28/23 [...] 08/02/24 1626 DD/ 25 TD/TT: 08/02/24 1626 Chemist: [facility] External Provider IMG US PROCEDURES Final Result * Hm Colonoscopy (05/28/2022 1:55 PM EDT) Historical Provider HEALTH MAINTENANCE Final Result documented in this encounter Visit Diagnoses Not on filedocumented in this encounter Additional Health Concerns Assessment Noted Time PHQ-9 Depression Total Score: 5 10/20/19 24 10:39 AM EDT documented as of this encounter Care Teams Suede Brusher Relationship Specialty Start Date End Date Tammi Burgess MD [address] [place] [phone] PCP - General Internal Medicine 04/13/23 documented as of this encounter
--- OUTSIDE RECORDS SUMMARY | 2024-11-16 11:26 | XMS_ITS | Clinical Summary ---
Author Organization [employer] Address [address] [facility] 7[address] [place] [address] Care Team Providers Care Inspector Technician Name Role Phone Tammi Burgess MD [...] 3 times daily. 90 capsule 11 024 Active famotidine (Pepcid) 20 MG tablet Take 1 tablet (20 mg) by mouth 2 times daily. 180 tablet 024 Active clonazePAM (KlonoPIN) 0.5 MG tablet Take 0.5 mg by mouth at bedtime. 024 Active dicyclomine (Bentyl) 10 MG capsule TAKE 1 CAPSULE BY MOUTH THREE TIMES DAILY 60 capsule 12/10/2 024 Active Semaglutide-Weig ht Management (Wegovy) 1 MG/0.5ML solution auto-injector INJECT ONE PEN (=1 MG) SUBCUTANEOUSLY ONCE A WEEK 2 mL Active Additional Information Patient not taking.Reported on 10/21/2024 divalproex (Depakote) 500 MG EC tablet TAKE 1 TABLET BY MOUTH EVERY MORNING AND TAKE 2 TABLETS BY MOUTH EVERY EVENING 90 tablet 1 Active lidocaine (Lidoderm) 5 % patch APPLY 1 PATCH TOPICALLY TO SKIN, LEAVE ON FOR 12 HOURS AND OFF FOR 12 HOURS DIRECTED 30 patch 2 Active lidocaine (Lidoderm) 5 % patch APPLY 1 PATCH TOPICALLY TO SKIN, LEAVE ON FOR 12 HOURS AND OFF FOR 12 HOURS DIRECTED 30 patch 2 024 2024 Discontinued Active Problems Problem Noted Date Diagnosed Date [...] cancer: Never smoker Eye: 02/2023 WNL at [facility] Dental: up to date Hernia [...] Encounters Date Type Department Care Team Description 11/15/2024 3:00 PM EDT Office Visit [facility] ADULT DENTAL [address] [place] [address] Jamey Hussein DMD Full coverage crown needed for tooth at risk for fracture (Primary Dx) 10/29/2024 Refill [facility] [address] [place] [address] Judy Prieto MD 10/21/2024 2:00 PM EDT Office Visit [facility] ADULT DENTAL [address] [place] [address] Jamey Hussein DMD Full coverage crown needed for tooth at risk for fracture (Primary Dx); Dental caries 10/10/2024 Refill [facility] [address] [place] [address] Madai Hernandez RN 10/06/2024 Telephone [facility] [address] [place] [address] Tammi Burgess MD 10/04/2024 Telephone [facility] [address] [place] [address] Tammi Burgess MD May recall 10/01/2024 Orders Only [facility] External Provider, [facility] 08/29/2024 Orders Only GENERIC EXTERNAL DATA DEPARTMENT Provider, Generic External Data from Last 3 Months Immunizations Name Administration [...] your housing situation today? I have robert renu 07/23/[address] you li [...] 12/21/2024 3:00 PM EDT Office Visit [facility] ADULT D[facility] [address] [place] [address] Prasanth, Bozena [address] [place] [address] 12/26/2024 2:00 PM EDT Office Visit [facility] [address] [place] [address] Tammi Burgess MD [address] [place], [place] [phone] Health Maintenance Due Date Last Done Comments [...] Alcohol/Substance Use Screening 06/22/2025 06/22/2024 Tobacco Screening 11/15/2025 11/15/2024 Cervical Cancer Screening 01/11/2026 Pap Smear 01/11/2026 [...] needed for tooth at risk for fracture 3 CROWN - PORCELAIN/CERAMIC Routine 11/15/2024 3:00 [...] EOSIN STAIN Routine 08/29/2024 4:03 PM EST PROPHYLAXIS - ADULT Routine 06/17/2024 3 :00 PM EST Dental plaque PERIODIC ORAL EVALUATION - ESTABLISHED PATIENT Routine 03/17/2024 3:00 PM EDT Secondary dental caries associated with failed or defective dental methodist Full coverage crown needed for root canal-treated [...] EDT Narrative 10/03/2024 11:15 AM EDT ? [facility] ?[address] ?[place] [address] ? Magnetic Resonance Report ? Signed ? Patient: Karen Og ?MR#: [id number] ?? 4 ? : 1970 ?Acct:[id number] ? Age/Sex: 54 / F ?ADM Date: 10/01/24 ? Loc: HO.MRI ? Attending Dr: Katheryn Dixon MD ? Ordering Physician: Katheryn Dixon MD ?? Date of Service: 10/01/24 ?? Procedure(s): MR lumbar spine wo con ?? Accession Number(s): [id number] ? cc: Katheryn Dixon MD; Tammi Burgess MD ? 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 Examination: MRI lumbar spine without intravenous contrast ? Comparison: CT/NV/SR - CT LUMBAR SPINE WO IV CON - 04/08/23 16:26 EDT ?? CR - LUMBAR SPINE 2TO 3 [id number] - 07/24/14 10:54 EST ? Findings: ? [...] DD/ 1114 ? TD/TT: 10/03/24 1114 ? Demand Generator Manager: ? Procedure Note Donotuseinterpreter, Image - 10/03/2024 [place] [address] Magnetic Resonance Report Signed Patient: Karen Og MMR#: [id number] 4 : 1970Acct:[id number] Age/Sex: 54 / FADM Date: 10/01/24 Loc: HO.MRI Attending Dr: Katheryn Dixon MD Ordering Physician: Katheryn Dixon MD Date of Service: 10/01/24 Procedure(s): MR lumbar spine wo con Accession Number(s): [id number] cc: Katheryn Dixon MD; Tammi Burgess MD CLINICAL HISTORY: M46.90 - Unspecified inflammatory spondylopathy, siteunspecified Examination: MRI lumbar spine without intravenous contrast Comparison: CT/NV/SR - CT LUMBAR SPINE WO IV CON - 04/08/23 16:26 EDT CR - LUMBAR SPINE 2TO 3 [id number] - 07/24/14 10:54 EST Findings: Plain radiograph [...] 10/03/24 1115 DD/ 1114 TD/TT: 10/03/24 1114 Demand Generator Manager: [facility] External Provider IMG MRI PROCEDURES Edited Result - Final * Hematoxylin and Eosin Stain (08/29/2024 4:03 PM EST) 08/29/2024 4:03 PM EST 08/30/2024 7:40 AM EST [facility] - 08/31/2024 12:42 PM EST ----- ------- Name: Karen Og ?Age/Sex: 54/F ? : 1970 Unit#: [id number] ?? Attend Dr: Juan Espinoza MD ?Re08/29/24 ?Status: DEP REF ? Location: HO.LNP ?Disch: ? ----- ------- SPEC : [id number] ?RECD: 08/30/24 ? STATUS: ??SOUT ? REQ NUM: [id number] ? MORGAN: 08/29/24-160 ? SUBM DR: Juan [...] ?? Tammi Burgess MD ?? [address] [facility] ?? [place] [address] ?? [phone] ?? Juan Espinoza MD ?? [facility] ?? [address] [facility] [address] ?? [place] [address] ?? [phone] ----- ------- Signed (signature on file) Katlyn Viveros 08/31/24 1242 ? ----- ------- ? END OF REPORT ? us Generic External Data Provider LAB BLOOD ORDERAB LES Final Result Performing Organization Address [facility] Co de Phone Number [facility] [address] [place] [address] [phone] * Hepatitis Panel, General (03/08/2024 11:43 AM EDT) Hepatitis A IgM Nonreactive Nonreactive [facility] Comment:IgM antibodies to LEMUS V not detected; does not exclude earlyacute or recovered HAV infection. ~Hepatitis B Surface Antibody REACTIVE Nonreactive [facility] Comment:REACTIVE: > 11.99 mI U/mL Hepatitis B Core Antibody Nonreactive Nonreactive [facility] Hepatitis C Antibody Nonreactive Nonreactive [facility] Comment:Antibodies to HCV no t detected; does not exclude early acuteHCV infection. Hepatitis B Surface Ag Negative Negative [facility] 03/08/2024 11:4 3 AM EDT 03/08/2024 11:43 AM EDT Generic External Data Provider LAB BLOOD ORDERAB LES Final Result Performing Organization Address [facility] Co de Phone Number [facility] [address] [place] [address] [phone] * BI Mammogram Screening Tomosynthesis Bilateral (02/26/2024 9:15 AM EDT) Anatomical Region Laterality Modality Breast Bilateral Mammography 02/26/2024 9:15 AM EDT Narrative 03/28/2024 11:07 PM EDT ? [facility] ?[address] ?[place] [address] ? Mammography Report ? Signed ? Patient: Og,Karen M ?MR#: [id number] ?? 4 ? : 1970 ?Acct:[id number] ? Age/Sex: 53 / F ?ADM Date: 02/25/ ? Loc: HO.US ? Attending Dr: Tammi Sorenson MD ? Ordering Physician: Tammi Burgess MD ?Re ?? sults: 1Negative ? Date of Service: 02/26/24 ?Follow Up: 1 Year From Orig ?? inal Mammogram ? Procedure(s): MM tomosynthesis screening BI ?? Accession Number(s): [id number] ? cc: Tammi Burgess MD ? EXAMINATION: [...] MD in OV> ? 03/28/244 ? DD/ ? TD/TT: 02/26/24924 ? Demand Generator Manager: ? Procedure Note Donotuseinterpreter, Image - 03/28/2024 [place] [address] Mammography Report Signed Patient: Karen Og MMR#: [id number] 4 : 1970Acct:[id number] Age/Sex: 53 / FADM Date: 02/26/24 Loc: HO. Attending Dr: Tammi Sorenson MD Ordering Physician: Tammi Burgess sults: 1Negative Date of Service: 02/26/24Follow Up: 1 Year From Orig inal Mammogram Procedure(s): MM tomosynthesis screening BI Accession Number(s): [id number] cc: Tammi Burgess MD EXAMINATION: MM SCREENING [...] signed by Karen Herrera MD in OV> 03/28/242303 DD/ 4 TD/TT: 02/26/24924 Demand Generator Manager: us Tammi Sorenson MD IMG BI PROCEDURES Final Result * HIV-1/2 Antigen and Antibodies, Fourth Generation, with Reflexes (12/05/2023 7:46 AM EDT) HIV AB/AG Nonreactive Nonreactive [facility] Comment:HIV-1 p24 Ag and/or HIV-1/HIV-2 Ab not detected.A test result that is nonreactive does not exclude thepossibility of exposure to or infection with HIV-1 and/orHIV-2. Nonreactive results in this assay for individualswith prior exposure to HIV-1 and/or HIV-2 may be due toantigen and antibody levels that are below the limit ofdetection of this assay.The [facility] HIV Ag/Ab Combo assay result andsupplemental assay results should be interpreted inconjunction with the patient's clinical presentation,history and other laboratory results. If the results areinconsistent with clinical evidence, additional testing issuggested to confirm the result. Blood Venous blood specimen / Unknown 12/05/2023 7:46 AM EDT 12/05/2023 7:46 AM EDT us Tammi Sorenson MD LAB BLOOD ORDERAB LES Final Result [facility] [address] [place] [phone] * Hemoglobin A1c (12/05/2023 7:46 AM EDT) Hemoglobin A1c 5.7 <6.0 % [facility] Comment:Hemoglobin A1C Refer ence Range Adults: 4.8 - 6.0 % Non diabetic: < 6.0 % Goal: < 7.0 %Additional Action Suggested: > 8.0 %Note: Hemoglobin A1c results are invalid for patients with abnormal amounts of HbF. Blood transfusions may impact the HbA1c concentration in the patient sample. Estimated Average Glucose 117 mg/dL [facility] Comment:eAG = Estimated ave rage glucose which is %A1C expressed asaverage glucose, using the formula of the J4G-LhdsjhuLdyybgq Glucose study (ADAG), Diabetes Care, Vol.31,#8,Feb. 2007 Blood Venous blood specimen / Unknown 12/05/2023 7:46 AM EDT 12/05/2023 7:46 AM EDT Tammi Sorenson MD LAB BLOOD ORDERAB LES Final Result [facility] [address] [place] [phone] * (ABNORMAL) Lipid Panel, Standard (12/05/2023 7:46 AM EDT) Triglycerides 144 <150 mg/dL [facility] Comment:Desirable Triglyceri de: less than 150 mg/dLBorderline High Triglyceride 150-199 mg/dLHigh Triglyceride: 200-499 mg/dLVery High Triglyceride: greater than or equal to 5OO mg/dL Cholesterol 200(H) <200 mg/dL [facility] Comment:Desirable Cholestero l: less than 200 mg/dLBorderline High Cholesterol: 200-239 mg/dLHigh Cholesterol: greater than 239 mg/dL LDL Cholesterol Calculated 121(H) <100 mg/dL [facility] Comment:Desirable LDL: less than 100 mg/dLNear Optimal/Above Optimal LDL: 110- 129 mg/dLBorderline High LDL: 130-159 mg/dLHigh LDL: 160-189 mg/dLVery High LDL: greater than or equal to 190 mg/dL HDL Cholesterol 51 >40 mg/dL [facility] Comment:Desirable HDL: great er than 40 mg/dL Note: This HDL assay may give artificially low results in patients with liver disease. Blood Venous blood specimen / Unknown 12/05/2023 7:46 AM EDT 12/05/2023 7:46 AM EDT Tammi Sorenson MD LAB BLOOD ORDERAB LES Final Result [facility] [address] [place] [phone] * Hm Colonoscopy (05/28/2022 1:55 PM EDT) Historical Provider HEALTH MAINTENANCE Final Result * HPV E6/E7 RFLX JACOB 16 18/45 (08/15/2021 1:40 PM EST) Pathologist [facility] HPV 16 RNA TNP [facility] HPV 18/45 RNA TNP [facility] HPV E6 E7 ADD TNP [facility] HPV mRNA E6/E7 rflx Not Detected Not Detected [facility] Comment: Methodology: Field Hockey Coach-Mediated Amplification This assay detects E6/E7 viral messenger RNA (mRNA) from 14 high-risk HPV types (16,18,31,33,35,39,45,51,52,56,58,59,66,68). The analytical performance characteristics of this assay have been determined by [employer]. The modifications have not been cleared or approved by the FDA. This assay has been validated pursuant to the CLIA regulations and is used for clinical purposes. For additional information, please refer to http://education.[employer]Signal/faq/CXD210s9 (This link if provided for information/ educational purposes only.) THIS TEST WAS PERFORMED AT: [facility] [address] [place] [address],[address] [place], [place] ??[phone] AMY BLANCAS MD 08/15/2021 1:40 PM EST Historical Provider HISTORICAL/NON ORDERABLE LABS Final Result Performing Organization Address [facility] Co de Phone Number [facility] [address] * THINPREP PAP (01/11/2021 11:51 AM [...] historic and ?? current clinical information. ?? Database Report Writer : SEE COMMENT [facility] Comment: GSG, CT(ASCP) CT screening location: [address] ??[phone] Interpretation/R esult: Negative for intraepithelial lesion or malignancy. [facility] LMP: NONE GIVEN [facility] Prev. BX: NONE GIVEN [facility] Prev. PAP: NONE GIVEN [facility] SOURCE: None given [facility] Statement Of Adequacy: SEE COMMENT [facility] Comment: Satisfactory for evaluation. Endocervical/transformation zone component present. 01/11/2021 11:5 1 AM EDT Historical Provider LAB PATHOLOGY ORDERABLES Final Result Performing Organization Address [facility] Co de Phone Number [facility] [address] from Last 3 Months or Most Recently Relevant to Health Maintenance Insurance HSN FULL [facility] - HSN FULL (MEDICAID) Care Teams Inspector Technician Relationship Specialty Start Date End Date Tammi Burgess MD [address] [place] [address] PCP - General Internal Medicine 04/13/23
--- OUTSIDE RECORDS SUMMARY | 2024-11-16 11:26 | XMS_ITS | Encounter Summary ---
Author Organization [employer] Address [address] [facility] 7[address] [place] [address] Care Team Providers Care Valet Service Attendant Name Role Phone Tammi Burgess MD Primary Care Pro vider Encounter Details Date Type Department Care Team (Late st Contact Info) Description 08/06/2023 Orders Only [facility] [address] [place], [place] [phone] Judy Prieto MD [address] [place], [place] [phone] Acute pain of right knee (Primary Dx); [...] Visit [facility] ADULT DENT[facility] [address] [place] [address] Prasanth, Bozena [address] [place] [address] 12/26/2024 2:00 PM EDT Office Visit [facility] [address] [place] [phone] Tammi Burgess MD [address] [place] [address] documented as of this encounter Visit Diagnoses Diagnosis Acute pain of right knee- Primary Effusion of right knee Dislocation of right knee with medial meniscus tear, initial encounter documented in this encounter Additional Health Concerns Assessment Noted Time PHQ-9 Depression Total Score: 0 07/23/20 11:15 AM EST documented as of this encounter Care Teams Valet Service Attendant Relationship Specialty Start Date End Date Tammi Burgess MD [address] [place] [address] PCP - General Internal Medicine 04/13/23 documented as of this encounter
--- OUTSIDE RECORDS SUMMARY | 2024-11-16 11:26 | XMS_ITS | Encounter Summary ---
Author Organization [facility] Address [address] [place] [address] [address], [place] [address] Care Team Providers Care Principal Process Engineer Name Role Phone Charito Lawrence Yue GARZA Primary Care Provider [phone] Tammi Burgess MD Primary Care Pro vider Encounter Details Date Type Department Care Team (Latest Contact Info) Description 07/29/2018 Abstract [facility] CONVERSIONS Dental, Provider, DDS [...] Care Team ( st Contact Info) Description 12/21/2024 3:00 PM EDT Office Visit [facility] ADULT DENTAL [address] [place] [address] Bozena Rader [address] [place] [address] 12/26/2024 2:00 PM EDT Office Visit [facility] [address] [place] [address] Tammi Burgess MD [address] [place] [address] documented as of this encounter Visit Diagnoses Not on filedocumented in this encounter Care Teams Principal Process Engineer Relationship Specialty Start Date End Date Charito Lawrence FNP PCP - General Family Medicine 05/17/21 04/12/23 Tammi Burgess MD [address] [place] [phone] PCP - General Internal Medicine 04/13/23 documented as of this encounter
--- OUTSIDE RECORDS SUMMARY | 2024-11-16 11:26 | XMS_ITS | Encounter Summary ---
Author Organization [employer] Address [address] [place] [address] [address] [place] [address] Care Team Providers Care Finisher Machine Name Role Phone HowardCharito carrizales Yue GARZA Primary Care Provider [phone]- [phone] Tammi Burgess MD Primary Care Pro vider Encounter Details Date Type Department Care Team (Late st Contact Info) Description 03/31/2023 Abstract [facility] ADULT DENTAL [address] [place] [address] Jamey Hussein, DMD [address] [place] [address] Social History Tobacco Use Types Packs/Day Years [...] Description 12/21/2024 3:00 PM EDT Office Visit [facility]ULT [facility] [address] [place] [address] Bozena Rader [address] [place] [address] 12/26/2024 2:00 PM EDT Office Visit [facility] [address] [place] [address] Tammi Burgess MD [address] [place], [place] [phone] documented as of this encounter Visit Diagnoses Not on filedocumented in this encounter Care Teams Finisher Machine Relationship Specialty Start Date End Date Charito Lawrence FNP PCP - General Family Medicine 05/17/21 04/12/23 Tammi Burgess MD [address] [place], [place] [phone] PCP - General Internal Medicine 04/13/23 documented as of this encounter
--- OUTSIDE RECORDS SUMMARY | 2024-11-16 11:26 | XMS_ITS | Encounter Summary ---
Author Organization [email or web address] Address [address] [place] [address] [address] [place] [address] Care Team Providers Care Kettle Operator Head Name Role Phone Tammi Burgess MD Primary Care Pro vider Reason for Visit * Reason Onset Date Comments Nurse Triage 07/16/2023 Encounter Details Date Type Department Care Team ([facility] st Contact Info) Description 07/16/2023 Telephone [facility] MED[facility]INE [address] [place] [address] Tammi Burgess MD [address] [place] [address] Nurse Triage Social History Tobacco Use Types [...] 07/16/2023 4:32 PM EST Triage call with [place] Nurse Practitioner ID [id number] Pt requests for Pt to speak for Pt. Pt has acute right knee pain. Pt has been seen in [facility] 07/09/23. Pt was prescribed tylenol 500mg, brace, voltaren gel and xrays. Xrays have been done. Pt isasking what xray results are underwriter solicitation director advised that there is evidence of osteoarthritis, [...] Description 12/21/2024 3:00 PM EDT Office Visit [facility] ADULT DENTAL [address] [place], [place] [phone] Ole Raderaris [address] [place] [address] 12/26/2024 2:00 PM EDT Office Visit [facility] MEDICINE [address] [place] [address] Tammi Burgess MD [address] [place], [place] [phone] documented as of this encounter Visit Diagnoses Not on filedocumented in this encounter Care Teams Kettle Operator Head Relationship Specialty Start Date End Date Tammi Burgess MD [address] [place] [phone] PCP - General Internal Medicine 04/13/23 documented as of this encounter
== END 2024-11-16 10:58 | disposition home or self-care (01) ==
LOC: HO.PMC 10:00
PROVIDERS: PCP Student in an Organized Health Care Education/Training Program; Referring Provider Physician Assistant; Visit Provider Internal Medicine
DX: M47.816 Spondylosis without myelopathy or radiculopathy, lumbar region (principal); Q76.49 Other congenital malformations of spine, not associated with scoliosis; M54.50 Low back pain, unspecified; G89.29 Other chronic pain
CPT/HCPCS: 99214

== ENCOUNTER → 2024-11-16 09:59 | Outpatient (BNVA) | payer OTHER, SELFPAY | PROVIDERS: PCP Student in an Organized Health Care Education/Training Program; Referring Provider Physician Assistant; Visit Provider Internal Medicine | DX: M47.816 Spondylosis without myelopathy or radiculopathy, lumbar region (principal); Q76.49 Other congenital malformations of spine, not associated with scoliosis; G89.29 Other chronic pain | CPT/HCPCS: 99212 ==

== ENCOUNTER 2024-12-02 07:03 | Day surgery (SDC) | payer MEDICAID, SELFPAY ==
[2024-11-30 08:06] VITALS: BMI 45.7
[2024-12-02] VITALS (8 sets, daily range): BP systolic 113–138; BP diastolic 61–74; PULSE 59–73; RESP 9–18; TEMP 36.1–36.8; O2SAT 97–99; BMI 27.5
[2024-12-02] MEDS: Lactated Ringers 1,000 ML 100 ML IVCONT (07:36)
--- NOTE | 2024-12-02 08:14 | P.CONAN_ITS ---
Documented by User: Deepa Forrest NP 12/01/24 09:21 HPI - Anesthesia Eval Consult details Narrative: 54yo F for Right Knee Arthroscopy,with partial medial meniscectomy PMFSH Active Problems Active Problems: All Active Problems Tear of medial meniscus of right knee (Acute) Osteoarthritis of knees, bilateral (Acute) Postmenopausal bleeding (Acute) Tear of medial meniscus of left knee (Acute) Left knee pain (Acute) Chronic low back pain (Acute) Right knee pain (Acute) Uterine myoma (Acute) Bertolotti's syndrome (Acute) Lumbar spondylosis (Acute) Female pelvic pain (Acute) Well woman exam (Acute) Abnormal uterine bleeding (AUB) (Acute) Incisional hernia (Acute) Colon cancer screening (Acute) History of hepatitis (Acute) Myoma (Acute) Past Medical History Medical History Osteoarthritis of knees, bilateral Migraine Anxiety disorder Fibromyalgia Seizure Family History Family History Maternal Grandmother Diabetes Father HTN (hypertension) Mother HTN (hypertension) Family history of problems with anesthesia: No Surgical History Surgical History History of cholecystectomy History of tubal ligation History of Problems with Anesthesia: No Social History Social History Household Members: Spouse Household Members Other:: son Housing: House Are you a primary hearing care practitioner to a significant other at home: No Do you presently have visiting nurse or other home services: No Alcohol intake: current Alcohol intake frequency: holidays/special occasions only Patient Tobacco Use Status: Never used Tobacco Have you been hit, kicked, punched, or otherwise hurt by someone within the past year? 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 Sexual orientation: Straight/Heterosexual Gender identity: Female Meds Allergies Allergy/AdvReac Type Severity Reaction Status Date / Time aspirin [ASPIRIN] Allergy Unknown SWELLING, Verified 12/02/24 07:21 facial swelling Active Medications: Current Medications Cefazolin Sodium/Dextrose (Ancef) 2 gm in 50 mls @ 100 mls/hr IV PREOP ONE Stop: 12/02/24 05:49 Home Medications ?Medication ?Instructions ?Recorded ?Confirmed ?Last Taken ?Type clonazepam 0.5 mg tablet 0.5 mg PO BEDTIME 03/08/24 12/02/24 Unknown History dicyclomine 10 mg capsule 10 mg PO TID 03/08/24 12/02/24 Unknown History gabapentin 300 mg capsule 300 mg PO TID 03/08/24 12/02/24 Unknown History lidocaine 5 % topical patch patch topical 03/08/24 11/16/24 Unknown History triamcinolone acetonide 0.1 % appl topical pain 03/08/24 11/16/24 Unknown Histor y topical cream Exam Height,Weight and Vital Signs: Height 5 ft 2.5 in Weight 115.212 kg Assessment and Plan Assessment Anesthesia Assessment: Chart Reviewed Final Anesthetic Review Family History of Problems with Anesthesia: No History of Problems with Anesthesia: No Documented by User: Meghan Helm DO 12/02/24 08:21 HPI - Anesthesia Eval Consult details Narrative: 54yo F for Right Knee Arthroscopy,with partial medial meniscectomy Hx of seizure disorder. Last seizure 2 months ago. Did not take depakote this morning. [facility] Past Medical History Medical History Osteoarthritis of knees, bilateral Migraine Anxiety disorder Fibromyalgia Seizure Family History Family History Maternal Grandmother Diabetes Father HTN (hypertension) Mother HTN (hypertension) Family history of problems with anesthesia: No Surgical History Surgical History History of cholecystectomy History of tubal ligation History of Problems with Anesthesia: No Social History Social History Household Members: Spouse Household Members Other:: son Housing: House Are you a primary hearing care practitioner to a significant other at home: No Do you presently have visiting nurse or other home services: No Alcohol intake: current Alcohol intake frequency: holidays/special occasions only Patient Tobacco Use Status: Never used Tobacco Have you been hit, kicked, punched, or otherwise hurt by someone within the past year? 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 Sexual orientation: Straight/Heterosexual Gender identity: Female Meds Allergies Allergy/AdvReac Type Severity Reaction Status Date / Time aspirin [ASPIRIN] Allergy Unknown SWELLING, Verified 12/02/24 07:21 facial swelling Home Medications ?Medication ?Instructions ?Recorded ?Confirmed ?Last Taken ?Type clonazepam 0.5 mg tablet 0.5 mg PO BEDTIME 03/08/24 12/02/24 Unknown History dicyclomine 10 mg capsule 10 mg PO TID 03/08/24 12/02/24 Unknown History gabapentin 300 mg capsule 300 mg PO TID 03/08/24 12/02/24 Unknown History lidocaine 5 % topical patch patch topical 03/08/24 11/16/24 Unknown History triamcinolone acetonide 0.1 % appl topical pain 03/08/24 11/16/24 Unknown History topical cream Exam Exam Date and Time: 12/02/2413 Height,Weight and Vital Signs: Height 5 ft 2.5 in Weight 115.212 kg Height 5 ft 2.5 in Weight 69.4 kg Vital Signs Temperature 98.2 F 12/02/24 07:48 Pulse Rate 69 12/02/24 07:48 Respiratory Rate 18 12/02/24 07:48 Blood Pressure 113/63 12/02/24 07:48 Pulse Oximetry 97 12/02/24 07:48 Oxygen Delivery Method Room Air 12/02/24 07:48 Temperature 98.2 F 12/02/24 07:48 Pulse Rate 69 12/02/24 07:48 Respiratory Rate 18 12/02/24 07:48 Blood Pressure 113/63 12/02/24 07:48 Pulse Oximetry 97 12/02/24 07:48 Oxygen Delivery Method Room Air 12/02/24 07:48 Airway Mallampati Class: I TM Dist: >3cm Neck ROM: Full Loose/Missing/Broken Teeth: No (patient denies any loose or broken teeth) Heart: S1S2 Lungs: CTAB Assessment and Plan Assessment Anesthesia Assessment: Anesthesia Plan Discussed and Chart Reviewed Final Anesthetic Review Family History of Problems with Anesthesia: No History of Problems with Anesthesia: No NPO: Yes ASA Class: II Final Preanesthetic Review: No Changes in Pt Med Stat, Meds/Allgs Chart Reviewed, Consent Obtained/Reviewed (watcher automat long goods at bedside for translation) and Anes Risks/Benef Reviewed Patient Risk: Low Procedure Risk: Low Anesthetic Plan Anesthetic Plan: GA and Agree w/ Assess. and Plan Disposition: Standard PACU
[2024-12-02] MEDS: Acetaminophen 1,000 MG/100 ML PIGGYBACK 400 MG IV (09:10)
[2024-12-02] MEDS: ceFAZolin Sodium/Dextrose,Iso 2 GM/50 ML PIGGYBACK IV (09:10)
--- NOTE | 2024-12-02 10:07 | PM.OP ---
Brief Operative Note Date of Service: 12/02/24 Pre-op diagnosis: Right knee medial meniscus tear, right knee degenerative joint disease Post-op diagnosis: same Procedure: Right knee arthroscopic partial medial meniscectomy, right knee arthroscopic chondroplasty of the undersurface of the patella as well as the trochlear groove and medial femoral condyle Implants: none Surgeon: Keyon Bowles MD Anesthesia: GLMA Was an Architectural Model Maker used for this Procedure?: No Estimated blood loss (mL): 10 Pathology: none sent Condition: stable Disposition: PACU
--- NOTE | 2024-12-02 10:11 | W.PM.OPN ---
Operative Note Operative Note Date of Service: 12/02/24 Narrative: After the patient was identified as Karen Og and her right knee was initialed by myself they were brought to the operating room where general anesthesia was induced by the anesthesiologist in routine fashion. The patient was given 2 g of IV Ancef for infection prophylaxis. A formal time-out was completed. The patient's right lower extremity was prepped and draped in sterile fashion. Marcaine with epinephrine was injected into the planned incision sites as well as their right knee joint. A # 11 scalpel blade was used to make an anterolateral portal 1 cm proximal to the joint line and 1 cm lateral to the patellar tendon. Blunt trocar technique was used into the suprapatellar pouch with the knee in extension. Diagnostic arthroscopy showed multiple bands of thickened plica which would be excised at the end of the procedure. There were no loose bodies or abnormalities found in either the medial or lateral gutters. There were diffuse grades 2 and 3 degenerative changes of the undersurface of the patella as well as grades 2 and 3 degenerative changes of the trochlear groove. The patient's knee was flexed to 45 degrees and a valgus force was placed upon it. The medial compartment was entered. An anteromedial portal was made 1 cm proximal to the joint line and 1 cm medial to the patellar tendon. Probing of the medial meniscus showed a radial tear of the posterior horn. A partial medial meniscectomy was performed using the arthroscopic shaver. Following the partial meniscectomy the remainder of the meniscus tissue was stable. There were diffuse grades 1 and 2 degenerative changes of the medial femoral condyle as well as diffuse grade 1 degenerative changes of the medial tibial plateau. The articular surface of the medial femoral condyle was made smooth using the arthroscopic shaver. The articular surface of the medial tibial plateau was already smooth so no chondroplasty was indicated. The patient's knee was then placed into a neutral position. There was no injury to the anterior cruciate ligament. The patient's knee was then placed into the figure of 4 position and the lateral compartment was entered. There were minimal degenerative changes of the lateral femoral condyle and lateral tibial plateau. There was no evidence of lateral meniscus tearing. The patient's knee was once again brought into extension and the suprapatellar pouch was entered. The arthroscopic shaver and the ArthroCare Wand were used to excise the thickened bands of plica. The undersurface of the patella and the trochlear groove were then made smooth using the arthroscopic shaver. The knee joint was irrigated and then drained. All arthroscopic instruments were removed. The 2 portals were closed with 3-0 nylon interrupted suture. The knee joint was injected with Marcaine. Dry sterile dressing and Nishant bandages were placed over the patient's knee. The patient was awoken and extubated in the operating room. They were transferred to the recovery room in stable condition.
[2024-12-02] MEDS: cefTRIAXone sodium 1 GM VIAL IVPUSH (10:31)
== END 2024-12-02 11:44 | disposition home or self-care (01) ==
PROVIDERS: PCP Student in an Organized Health Care Education/Training Program; Visit Provider Orthopaedic Surgery
PROC: (CPT 29870; principal; 2024-12-02 09:00)
DX: S83.241A Other tear of medial meniscus, current injury, right knee, initial encounter (principal); M25.561 Pain in right knee; M17.11 Unilateral primary osteoarthritis, right knee; M23.51 Chronic instability of knee, right knee; M67.51 Plica syndrome, right knee; X50.1XXA Overexertion from prolonged static or awkward postures, initial encounter; Y93.01 Activity, walking, marching and hiking; Y92.9 Unspecified place or not applicable; Y99.9 Unspecified external cause status; M79.7 Fibromyalgia; R56.9 Unspecified convulsions; G43.909 Migraine, unspecified, not intractable, without status migrainosus; F41.9 Anxiety disorder, unspecified; Z79.899 Other long term (current) drug therapy; Z88.6 Allergy status to analgesic agent; Z90.49 Acquired absence of other specified parts of digestive tract; Z98.51 Tubal ligation status
CPT/HCPCS: 29881; J0131; J0171; J0690; J0696; J1100; J1885; J2003; J2250; J2405; J2704; J2795; J3010

== ENCOUNTER → 2024-12-02 07:03 | Outpatient (BNV) | payer MEDICAID, SELFPAY | PROVIDERS: PCP Student in an Organized Health Care Education/Training Program; Visit Provider Orthopaedic Surgery | DX: S83.241A Other tear of medial meniscus, current injury, right knee, initial encounter (principal) | CPT/HCPCS: 29881 ==

== ENCOUNTER 2024-12-15 13:37 | Outpatient (AMB) | payer MEDICAID, SELFPAY ==
--- NOTE | 2024-12-15 13:42 | MHC.OFFVIS ---
Vital Signs 12/15/24 13:51 Height 5 ft 2.5 in Weight 153 lb BMI 27.5 Intake Visit Reasons: PO RT knee 12/02/24 DR Intake Note: Karen is a 54 year old male who presents with complaints of mild intermittent discomfort in her right knee after undergoing right knee arthroscopic surgery on 12/02/2024. She continues with her home stretching program. She denies any fevers or chills. Forest Fire Control Officer Required: Yes Forest Fire Control Officer Services: Forest Fire Control Officer Offered & Declined Allergies aspirin [ASPIRIN] Allergy (Unknown, Verified 12/15/24 13:51) SWELLING, facial swelling Medication List - Last Reconciled 12/15/24 by Keyon Bowles MD clonazepam 0.5 mg PO BEDTIME cyclobenzaprine 5 mg PO BEDTIME PRN dicyclomine 10 mg PO TID divalproex (Depakote) 750 mg (1.5 x 500 mg) PO BID 30 days famotidine 20 mg PO BID gabapentin 300 mg PO TID lidocaine 5% patches topical triamcinolone acetonide 0.1% appl topical PFSH Medical History Osteoarthritis of knees, bilateral Migraine Anxiety disorder Fibromyalgia Seizure Surgical History History of cholecystectomy History of tubal ligation Family History Maternal Grandmother Diabetes Father HTN (hypertension) Mother HTN (hypertension) Social History Household Members: Spouse Household Members Other:: son Housing: House Are you a primary child care coordinator to a significant other at home: No Do you presently have visiting nurse or other home services: No Alcohol intake: current Alcohol intake frequency: holidays/special occasions only Patient Tobacco Use Status: Never used Tobacco Current occupational status: employed 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 Og is doing well after undergoing right knee arthroscopic surgery on 12/02/2024. Her sutures were removed and Steri-Strips placed over her incisions. I did give her a prescription for Celebrex to help with her discomfort. She will continue with her home stretching program. She will contact me prior to her follow-up appointment in 6 weeks should any questions or concerns arise. Feel free to call me at any time should questions regarding her orthopedic management arise. Medications: New celecoxib (Celebrex) 200 mg PO DAILY PRN 30 caps 0RF pain Coding Level of Care Code Global (87456) Diagnoses Right knee pain M25.561
--- OUTSIDE RECORDS SUMMARY | 2024-12-15 13:47 | XMS_ITS | Encounter Summary ---
Author Organization [employer] Address [address] [place] [address] Care Team Providers Care Patching Machine Operator Name Role Phone Tammi Burgess MD Primary Care Pro vider Reason for Visit * Reason Comments Med Refill Encounter Details Date Type Department Care Team (Late st Contact Info) Description 08/11/2024 Refill [facility] MEDICINE [address] [place] [address] Tammi Burgess MD [address], [place] [id number] Social History Tobacco Use Types Packs/Day Years [...] Description 12/21/2024 3:00 PM EDT Office Visit [facility] ADULT DENTAL [address] [place] [address] Bozena Rader [address] [place] [address] 12/26/2024 2:00 PM EDT Office Visit [facility] MEDICINE [address] [place] [address] Tammi Burgess MD [address] [place] [address] 01/05/2025 2:00 PM EDT Office Visit [facility] ADULT DENTAL [address] [place] [address] Jamey Hussein, DMD [address] [place] [address] documented as of this encounter Visit Diagnoses Not on filedocumented in this encounter Additional Health Concerns Assessment Noted Time PHQ-9 Depression Total Score: 5 10/20/19 24 10:39 AM EDT documented as of this encounter Care Teams Patching Machine Operator Relationship Specialty Start Date End Date Tammi Burgess MD [address] [place] [id number] PCP - General Internal Medicine 04/13/23 documented as of this encounter
[2024-12-15 13:51] VITALS: BMI 27.5
== END 2024-12-15 13:59 | disposition home or self-care (01) ==
LOC: HO.HOS 13:38
PROVIDERS: PCP Student in an Organized Health Care Education/Training Program; Visit Provider Orthopaedic Surgery
DX: M25.561 Pain in right knee (principal)
CPT/HCPCS: 99024

== ENCOUNTER → 2024-12-15 13:37 | Outpatient (BNVA) | payer MEDICAID, SELFPAY | PROVIDERS: PCP Student in an Organized Health Care Education/Training Program; Visit Provider Orthopaedic Surgery | DX: M25.561 Pain in right knee (principal); Z47.89 Encounter for other orthopedic aftercare; Z98.890 Other specified postprocedural states | CPT/HCPCS: 99212 ==

== ENCOUNTER 2024-12-29 06:05 | Outpatient (REF) | payer MEDICAID, SELFPAY ==
--- NOTE | ~2024-12-29 | FL_ITS ---
EXAMINATION: FL GUIDANCE ONLY HISTORY: M47.816 - Spondylosis without myelopathy or radiculopathy, lumbar region COMPARISON: None available. TECHNIQUE: Fluoroscopy time: 17.8 seconds. Cumulative Dose: 4.4779 mGy. DAP: 0.5462 mGym2 Images: 3. FINDINGS: Fluoroscopic spot films of the lumbar spine demonstrate needles and contrast material in the regions of the left L4-5 and L5-S1 facet joints. FL/FL guidance in treatment room IMPRESSION: Fluoroscopy during procedure. Please see procedure report for additional information. Electronically signed by: Gucci Novak MD 12/29/2024 03:04 PM EDT
--- OUTSIDE RECORDS SUMMARY | 2024-12-29 06:08 | XMS_ITS | Encounter Summary ---
Author Organization [employer] Address [address] [place] [address] [address] [place] [address] Care Team Providers Care Door Closer Name Role Phone Tammi Burgess MD Primary Care Pro vider Reason for Referral * Imaging (Routine) - Authorized Specialty Diagnoses / Procedures Referred By Ramirez christie Referred To Contact Radiology Diagnoses Difficulty swallowing, mixes medication with food Tremor of both hands Dysmetria Memory loss Procedures MR Brain w/o Contrast Tammi Burgess MD [address] [place] [id number] Phone: tel: fax: [address] Phone: tel: fax: Referral ID Status Reason Start Date Expiration Date V isits Requested Visits Authorized [id number] Authorized 12/26/2024 12/26/2025 1 1 * Imaging (Routine) - Authorized Specialty Diagnoses / Procedures Referred By Contac t Referred To Contact Radiology Diagnoses Difficulty swallowing, mixes medication with food Procedures FL Esophagus Barium Swallow Tammi Burgess MD [address] [place] [id number] Phone: tel: fax: [address] Phone: tel: fax: Referral ID Status Reason Start Date Expiration Date Visits Requested Visits Authorized [id number] Authorized Perform Procedure 12/26/2024 12/26/2025 1 1 Encounter Details Date Type Department Care Team (Latest Contact Info) Description 12/26/2024 2:00 PM EDT Office Visit [facility] [address], [place] [phone] Tammi Burgess MD [address] [place], [place] [phone] Difficulty swallowing, mixes medication with food (Primary Dx); Low back pain associated with a spinal disorder other than radiculopathy or spinal stenosis; Dietary counseling; Exercise counseling; Seizure (CMS/HCC); Tremor of both hands; Dysmetria; Memory loss; Annual physical exam; Human leukocyte antigen B27 spondyloarthropathy; Fibromyositis; Back pain, unspecified back location, unspecified back pain laterality, unspecified chronicity; Mixed anxiety and depressive disorder; LTBI (latent tuberculosis infection); Health care maintenance; Uterine leiomyoma, unspecified location; Prediabetes; Onychomycosis Social History Tobacco Use Types Packs/Day Years Used Date Smoking Tobacco: Never Passive Smoke Exposure: Never Smokeless Tobacco: Never Alcohol Use Standard Drinks/Week Comments Not Currently 2 (1 standard drink = 0.6 oz pur e alcohol) Socially Depression Answer Date Recorded Patient Health Questionnaire-9 Score 8 12/26/2024 Patient Health Questionnaire-9 Score 8 12/26/2024 Last PHQ-9: Questionnaire Data Not on file 0 12/26/2024 Housing Stability Answer Date Recorded What is your housing situation today? I have robert sing 12/16/[address] you li ve. Do you have problems with any of the following? None of the above 12/16/2024 Food Insecurity Answer Date Recorded Within the past 12 months, y ou worried that your food would run out before you got money to buy more: Never True 12/16/2024 Within the past 12 months,th e food you bought just didn't last and you didn't have enough money to get more: Never True Transportation Answer Date Recorded In the past 12 months, has l ack of transportation kept you from medical appts, meetings, work or from getting things needed for daily living? No 12/16/2024 Utilities Answer Date Recorded In the past 12 months, has t he electric, gas, oil or water company threatened to shut off services in your home? No 12/16/2024 Depression Answer Date Recorded Patient Health Questionnaire-2 Score 2 12/26/2024 Internet Access Answer Date Recorded Internet Access Q1 Yes 12/16/2024 Internet Access Q2 Not on file 12/16/2024 Comments Unknown Sex and Gender Information Value Date Recorded Sex Assigned at Female 05/26/2022 10:16 AM EDT Legal Sex Female 10:16 AM EDT Gender Identity Female 05/26/2022 10:16 AM EDT Sexual Orientation Straight 05/26/2022 10 :16 AM EDT documented as of this encounter Last Filed Vital Signs Vital Sign Reading Time Taken Comments Blood Pressure 122/70 12/26/2024 2:15 PM EDT Pulse 66 12/26/2024 2:15 PM EDT Temperature 36.2 ??C (97.1 ??F) 12/26/2024 2:15 PM ED T Respiratory Rate 20 12/26/2024 2:15 PM EDT Oxygen Saturation 97% 12/26/2024 2:15 PM EDT Inhaled Oxygen Concentration - - Weight 71.9 kg (158 lb 9.6 oz) 12/26/2024 2:15 P M EDT Height 158.8 cm (5' 2.5 ) 12/26/2024 2:15 PM EDT Body Mass Index 28.55 12/26/2024 2:15 PM EDT documented in this encounter Functional Status * Over the past 2 weeks, how often have you been bothered by any of the following problems? Question Answer Date of Assessment Author Patient Health Questionnaire -2 Score 2 12/26/2024 3:12 PM EDT Faviola Edmondson MA * Little interest or pleasure in doing things Answer Date of Assessment Author Several days 12/26/2024 3:12 PM EDT Isaiah Edmondson MA * Feeling down, depressed, or hopeless Answer Date of Assessment Author Several days 12/26/2024 3:12 PM EDT Isaiah Edmondson MA * Trouble falling or staying asleep, or sleeping too much Answer Date of Assessment Author More than half the days 12/26/2024 3:12 PM EDT Faviola Aguila MA * Feeling tired or having little energy Answer Date of Assessment Author More than half the days 12/26/2024 3:12 PM EDT Faviola Aguila MA * Poor appetite or overeating Answer Date of Assessment Author More than half the days 12/26/2024 3:12 PM EDT Faviola Aguila MA * Feeling bad about yourself - or that you are a failure or have let yourself or your family down Answer Date of Assessment Author Not at all 12/26/2024 3:12 PM EDT Isaiah Edmondson MA * Trouble concentrating on things, such as reading the newspaper or watching television Answer Date of Assessment Author Not at all 12/26/2024 3:12 PM EDT Isaiah Edmondson MA * Moving or speaking so slowly that other people could have noticed? Or the opposite - being so fidgety or restless that you have been moving around a lot more than usual. Answer Date of Assessment Author Not at all 12/26/2024 3:12 PM JUSTINT Isaiah Edmondson MA * Thoughts that you would be better off or hurting yourself in some way Answer Date of Assessment Author Not at all 12/26/2024 3:12 PM JUSTINT Isaiah Edmondson MA * Patient Health Questionnaire-9 Score Answer Date of Assessment Author 8 12/26/2024 3:12 PM JUSTINT Isaiah Edmondson MA * How difficult have these problems made it for you to do your work, take care of things at home, or get along with other people? Answer Date of Assessment Author Somewhat difficult 12/26/2024 3:12 PM JUSTINT Faviola Edmondson MA * Over the last 2 weeks, how often have you been bothered by any of the following problems? Question Answer Date of Assessment Author Feeling nervous, anxious, or on edge 1 12/26/2024 3:12 PM EDT Faviola Edmondson MA Not being able to stop or co ntrol worrying 1 12/26/2024 3:12 PM EDT Faviola Edmondson MA Worrying too much about diff erent things 1 12/26/2024 3:12 PM EDT Faviola Edmondson MA Trouble relaxing 0 12/26/2024 3:12 PM EDT Faviola Aguila MA Being so restless that it is hard to sit still 0 12/26/2024 3:12 PM EDT Faviola Edmondson MA Becoming easily annoyed or irritable 0 12/26/2024 3:12 PM EDT Faviola Edmondson MA Feeling afraid as if somethi ng awful might happen 0 12/26/2024 3:12 PM EDT Faviola Edmondson MA CARMEN-7 Total Score 3 12/26/2024 3:12 PM EDT Faviola Edmondson MA documented as of this encounter Progress Notes * Tammi Sorenson MD - 12/26/2024 2:00 PM EDT Subjective Patient ID: Karen Og is a 54 y.o. female who presents for annual exam .Comes w partner HPI 54 y o F from [place] ( lives here for 20 y ) w PMX of Obesity,PreDM, HLD,Seizure dx, Depression/anxiety,Fibromyalgia,migraine LEMUS,Uterine fibromas. LTBI s/p tx Pt comes today for annual exam Pt reports to be concerned with 1 month of ongoing bl hand tremor ,states happens more when grabbing objects but can happen at rest as well,upon questioning recalls similar symptoms 1 year ago but resolved. Reports as well worsening memory , when ask reports some times having episodes of difficulty swallowing can not specify if to solids or liquids and denies to be present all the time. Pt does have depression and anxiety but denies symptoms happen when is anxious ,could be calm and still notedtremors Has noted some hot feeling sensation in her body as well , had menopause 4 y ago ,denies weigh loss, no LDN, no diarrhea, no skin changes. Denies taking new meds no stopping abruptly meds, denies excessive alcohol hx, states father had some tremors (denies Parkinson's dx) ,denies to have voice changes nor head tremors. ------ Assessment and Plan: Health care maintenance -Annual exam done 11/2024 -menopause 50 y of age -Pap Smear: 08/15/21 Neg/HPV neg. Repeat 5 years 2026 -Mammogram: 02/2024 BIRADS 1-has apt for MM for 02/2025 -Colonoscopy: ( from previous PCP' records) 05/28/22 #2 polyps removed from cecum (retrieved) and transverse colon (not retrieved). Internal hemorrhoids ,Diverticulosis . Repeat 7-10 years -vaccines hep B x3-immune , MMRx1,COVID x2, Tdap 09/2023 , Shingrixx2 . COVID 19 and Flu vaccine offered and refuse Overweight Stable weight -BMI 28<--- 28<--- 29.9 <---30.4 -Advised pt to improve diet and exercise,discussed healthy life style -refuse nylon winder referral -was using Wegovy 0.5 mg weekly ,states stopped getting med from pharmacy 6 mo ago,but wants to hold on inj for now PreDM -Today capillary hb1AC 5.6, CBG 83 -12/05/2023 hb1AC 5.7 -life style changes advised -monitor labs HLD 11/2023 LDL 121, total ch 200 HDL 51 -ASCVD 1.5 % no indication for meds -life style changes advised -repeat fasting lipids ordered today -Saw developing machine tender in 07/2024 for palpitations, no need f up , normal TTE and loop record Seizure dx -last seizure episode 12/2023 -Brain MRI w/wo contrast 2012: Normal MRI of the brain. -F w neurologist -Dr Byrd -states was told to have a normal EEG -on depakote 500 mg 1 tab am and 2 tab pm -getting clonazepam 0.5 mg daily PRN px by neurologist Depression/anxiety PHQ9 8<--- 5, CARMEN 3<--- 5 no SI , no hallcuinations , no bala Pt stopped Cymbalta for SE -states did not tolerate low dose of 30 mg and worsen w 60 mg dose -BH offered today Again -pt refusing -offer to try escitalopram- pt wants to hold for now Fibromyalgia Chronic Back pain/spondyloarthropathy -XR sacrum/coccyx's 05/21/23: No acute visible fracture or dislocation. -CT Lumbar spine w/o contrast 04/08/23: There is a grade 1 anterolisthesis of L5 on S1. There is partial sacralization of L5 on the left with pseudoarticulation between L5 and S1. This should be correlated with plain films before any intervention is undertaken.At L4-L5 there are severe facet arthropathic changes. There is a posterior disc protrusion without mass effect on the thecal sac and there is no central stenosis. There is mild right foraminal narrowing. At L3-L4 there are moderate facet arthropathic changes. There is a posterior disc protrusion without mass effect on the thecal sac and there is no central stenosis. The neural foramina are patent. -MR lumbar spine wo con 09/2024 L4-L5: Normal disc height and signal with no discogenic changes. Posterior annular tear with mild disc bulge No central or foraminal stenosis or thecal sac compression. Degenerative facet hypertrophy L5-S1: Normal disc height and signal with no discogenic changes. Posteriorannular tear with mild disc bulge No central or foraminal stenosis or thecal sac compression. Degenerative facet hypertrophy -f w PM in 05/2023 Discussed cortisone injection vs. Peripheral nerve stimulator as a possible treatment option. 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 Her bilateral SI joint x-rays did not show sacroiliitis. -PM 10/2024 Plan to proceed with a left L4-5, L5-S1 facet injection (bertolotti articulation) with corticosteroids --has apt for inj w PM soon -Ortho spine surgery referred by her oncology pharmacist ,seen 10/2024 rec PT and no rec for surgery -rheumatology 10/2024 was told to f PRN only , L-spine with views of the SI joints do not show any evidence of inflammatory arthritis. Despite her being HLA B27 positive there is no evidence of ankylosing spondylitis or spondyloarthritis at this time. -continue care w PM -advied tylenol prn and lidoderm patch px -takes gabapentin 300 mg BID --refuse to increase dose given makes her sleepy -offered today for chronic pain program but refuse ,also offered acupuncture but refuse for now fortime w work but states will consider acupuncture option Gastritis denies GERD symptoms , no other GI complaints -H pylori UBT 01/2024 neg -life style changes advised,weight loss, decrease heavy meals at night -continue famotidine BID Chronic knee pain -left knee XR 04/22/23:No fracture, dislocation or left knee joint effusion is seen. There is very mild osteoarthritic change of the left medial and patellofemoral joint space compartments. -Right knee MRI w/o contrast 07/2023 : Inner margin and femoral articular surface tearing of the medial meniscus posterior body and posterior horn with a posterior medially displaced meniscal flap.Minimally depressed subchondral fracture at the medial aspect of the medial tibial plateau with underlying marrow and soft tissue edema. Edema adjacent to the medial collateral ligament which could represent a grade 1 sprain or be related to the medial meniscal tear. [id number] medial as well as mild patellofemoral and lateral compartment osteoarthritis.[id number]-il-harylqdj joint effusion.Tendinosis and irregular longitudinal partial tearing of the distal semimembranosus tendon. -MR knee LT wo con 07/2024 Findings consistent with a mild bone contusion involving the medial aspect of the proximal tibial metaphysis. Moderate osteoarthritis of the patellofemoral compartment and mild osteoarthritis of the medial compartment. No evidence of a meniscal tear. -Saw Orthopedic for right knee arthroscopic surgery on 12/02/2024 ,pxed (Celebrex) 200 mg PO daily Uterine myomas Hx of AUB -pelvic US 09/2023: Multiple uterine fibroids, largest 3.0 cm. -US pelvic and transvaginal 07/2024 Multiple intramural fibroids within the uterus. -saw COUNCIL MEMBER 08/2024 and was informed her endometrial biopsy showed scant tissues of benign endometrial and told in case vaginal bleeding bleeding recurs, the next step will be to proceed with a diagnostic hysteroscopy/DC for further endometrial sampling evaluation to rule out endometrial pathology. Tinnitus/ear pain -resolved Doing better ,currently asymptomatic Unsure if better after stopped cymbalta?? -saw ENT already Chronic LUQ discomfort -Abd US 02/2024 : Increased hepatic parenchymal heterogeneity and echogenicity could be associated with hepatocellular disease/hepatic steatosis and substantially limits visualization. Correlation with liver function tests and clinical exam recommended to determine further management. Targeted ultrasound images were obtained by the metal bonder of the area of concern as indicated by the patient in the midline and left abdomen demonstrated no discrete mass or fluid collection, although visualization limited due to bowel gas. CT scan could be considered for further evaluation. -Normal exam LTBI -tested for Tb by her oncology pharmacist prior initiation of rheumatologic tx ,T- spot was positive Pt recalls tested positive PPD 21 y ago when came to live to [place],denies previous LTBI tx . 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 Pt denies havingany SOB,chronic cough,hemoptysis ,night sweats nor fever ,does noted have weight loss but this since started using GLP1. -03/08/2024 CBC wnl,Chem wnl -05/2024 Chem : LFTS and Cr wnl -CXR 03/22/24; No significant abnormality is noted involving the heart, lungs, mediastinum, bony thorax or soft tissues. Unremarkable examination. -S/p Rifampin 600 mg x4 months completed already in 07/2024 ,today pt states jus now recalls was also treated for this 20 y ago Hand tremors Memory loss Difficulty w swallowing Pt reports to be concerned with 1 month of ongoing bl hand tremor ,states happens more when grabbing objects but can happen at rest as well,upon questioning recalls similar symptoms 1 year ago but resolved. Reports as well worsening memory , when ask reports some times having episodes of difficulty swallowing can not specify if to solids or liquids and denies to be present all the time. Has noted some hot feeling sensation in her body as well , had menopause 4 y ago ,denies weigh loss, no LDN, no diarrhea, no skin changes. Denies taking new meds no stopping abruptly meds, denies excessive alcohol hx, states father had some tremors ,denies to have voice changes nor head tremors. Strength in upper extremities 5/5, right leg 4/5 seems due to pain 5/5 Left leg ,normal sensory evaluation in all extremities. CN II-XII normal, noted some faint bl hand tremor noted dysmetria, No Cogwheel rigidity -Today capillary hb1AC 5.6, CBG 83 -given reported memory loss and noted dysmetria on exam will do Brain MRI w/o contrast to eval cerebellum and other parenchymal abnormalities -referred for Barium swallow today -will do chem,TSH -pt reports hot body sensation and sporadic LEMUS , but normal BP,no current concern for pheochromocytoma as cause of symptoms -pt has apt w her neurologist this month in 01/19/2025 advised pt to discuss about new symptoms -if not f w neuro will consider propanolol after completes evaluation and if neg workup to treat for possible essential tremors Onychomycosis Noted thicken and deformed toenails both big toes ,likely onychomycosis -check chem today-if normal LFTs and no contraindication w meds will offer next apt terbinafine w plan to tx for 3 months Review of Systems Constitutional: Negative. Negative for chills, fatigue and fever. HENT: Negative. Eyes: Negative. Respiratory: Negative. Cardiovascular: Negative. Gastrointestinal: Negative. Genitourinary: Negative. Musculoskeletal: Positive for back pain. Skin: Thicken toenails Neurological: Positive for tremors. Worsening memory On and off dysphagia Hematological: Negative. Psychiatric/Behavioral: Positive for behavioral problems. Negative for suicidal ideas. The patient is nervous/anxious. Objective BP 122/70 (BP Location: Left arm, Patient Position: Sitting, BP Cuff Size: Adult) Pulse 66 Temp97.1 ??F (36.2 ??C) (Temporal) Resp 20 Ht 5' 2.5 (1.588 m) Wt 158 lb 9.6 oz (71.9 kg) [id number]% BMI 28.55 kg/m?? Physical Exam Vitals reviewed. Constitutional: Appearance: Normal appearance. HENT: Head: Normocephalic and atraumatic. Right Ear: Tympanic membrane and ear canal normal. Left Ear: Tympanic membrane and ear canal normal. Mouth/Throat: Mouth: Mucous membranes are moist. Pharynx: Oropharynx is clear. Eyes: Extraocular Movements: Extraocular movements intact. Pupils: Pupils are equal, round, and reactive to light. Cardiovascular: Rate and Rhythm: Normal rate and regular rhythm. Heart sounds: Normal heart sounds. No murmur heard. Pulmonary: Effort: Pulmonary effort is normal. Breath sounds: Normal breath sounds. Abdominal: General: Abdomen is flat. Bowel sounds are normal. Palpations: Abdomen is soft. Musculoskeletal: General: Normal range of motion. Cervical back: Normal range of motion and neck supple. Skin: General: Skin is warm. Comments: Noted thicken and deformed toenails both big toes ,likely onychomycosis Neurological: General: No focal deficit present. Mental Status: She is alert and oriented to person, place, and time. Mental status is at baseline. Cranial Nerves: No cranial nerve deficit. Sensory: No sensory deficit. Motor: Weakness present. Gait: Gait abnormal. Comments: Strength in upper extremities 5/5, right leg 4/5 seems due to pain 5/5 Left leg ,normal sensory evaluation in all extremities. CN II-XII normal, noted some faint bl hand tremor noted dysmetria , No Cogwheel rigidity Psychiatric: Mood and Affect: Mood normal. Behavior: Behavior normal. Assessment/Plan Problem List Items Addressed This Visit Backache Relevant Medications celecoxib (CeleBREX) 200 MG capsule Diclofenac Sodium 1 % gel gabapentin (Neurontin) 300 MG capsule Fibromyositis Relevant Medications celecoxib (CeleBREX) 200 MG capsule Diclofenac Sodium 1 % gel gabapentin (Neurontin) 300 MG capsule Mixed anxiety and depressive disorder Seizure (CMS/HCC) Relevant Medications gabapentin (Neurontin) 300 MG capsule Uterine leiomyoma Health care maintenance Prediabetes Human leukocyte antigen B27 spondyloarthropathy Relevant Medications gabapentin (Neurontin) 300 MG capsule LTBI (latent tuberculosis infection) Tremor of both hands Relevant Medications gabapentin (Neurontin) 300 MG capsule Other Relevant Orders POCT Glucose (Completed) POCT HGB A1C (Completed) MR Brain w/o Contrast Memory loss Relevant Medications gabapentin (Neurontin) 300 MG capsule Other Relevant Orders MR Brain w/o Contrast Onychomycosis Other Visit Diagnoses Difficulty swallowing, mixes medication with food - Primary Relevant Orders FL Esophagus Barium Swallow MR Brain w/o Contrast Low back pain associated with a spinal disorder other than radiculopathy or spinal stenosis Relevant Medications celecoxib (CeleBREX) 200 MG capsule Diclofenac Sodium 1 % gel gabapentin (Neurontin) 300 MG capsule Dietary counseling Exercise counseling Dysmetria Relevant Medications gabapentin (Neurontin) 300 MG capsule Other Relevant Orders MR Brain w/o Contrast Annual physical exam Relevant Orders CBC Chlamydia/N. Gonorrhoeae RNA, TMA, Urogenitial Comprehensive Metabolic Panel Hemoglobin A1c Hepatitis B surface antigen, EIA Hepatitis C Antibody with Reflex to HCV, RNA, Quantitative, Real-Time PCR HIV-1/2 Antigen and Antibodies, Fourth Generation, with Reflexes Lipid Panel, Standard Syphilis Screen TSH with Reflex to Free T4 Vitamin B12 (Cobalamin) and Folate Panel, Serum documented in this encounter Plan of Treatment Upcoming Encounters Date Type Department Care Team (Late st Contact Info) Description 01/05/2025 2:00 PM EDT Office Visit [facility] [address] [place], [place] [phone] Jamey Hussein, DMD [address], [place] [phone] 03/02/2025 1:30 PM EDT Office Visit [facility] [address] [place] [address] Tammi Burgess MD [address] [place], [place] [phone] Scheduled Orders Name Type Priority Associated Diagnoses Orde r Schedule FL Esophagus Barium Swallow Imaging Routine Difficulty swallowing, mixes medication with food Expected: 12/26/2024, Expires: 12/26/2025 CBC Lab Routine Annual physical exam Expected: 12/26/2024 (Approximate), Expires: 12/26/2025 Chlamydia/N. Gonorrhoeae RNA, TMA, Urogenitial Microbiology Routine Annual physical exam Expected: 12/26/2024 (Approximate), Expires: 12/26/2025 Comprehensive Metabolic Panel Lab Routine Annual physical exam Expected: 12/26/2024 (Approximate), Expires: 12/26/2025 Hemoglobin A1c Lab Routine Annual physical exam Expected: 12/26/2024 (Approximate), Expires: 12/26/2025 Hepatitis B surface antigen, EIA Lab Routine Annual physical exam Expected: 12/26/2024 (Approximate), Expires: 12/26/2025 Hepatitis C Antibody with Reflex to HCV, RNA, Quantitative, Real-Time PCR Lab Routine Annual physical exam Expected: 12/26/2024 (Approximate), Expires: 12/26/2025 HIV-1/2 Antigen and Antibodies, Fourth Generation, with Reflexes Lab Routine Annual physical exam Expected: 12/26/2024 (Approximate), Expires: 12/26/2025 Lipid Panel, Standard Lab Routine Annual physical exam Expected: 12/26/2024 (Approximate), Expires: 12/26/2025 Syphilis Screen Lab Routine Annual physical exam Expected: 12/26/2024 (Approximate), Expires: 12/26/2025 TSH with Reflex to Free T4 Lab Routine Annual physical exam Expected: 12/26/2024 (Approximate), Expires: 12/26/2025 Vitamin B12 (Cobalamin) and Folate Panel, Serum Lab Routine Annual physical exam Expected: 12/26/2024 (Approximate), Expires: 12/26/2025 MR Brain w/o Contrast Imaging Routine Difficulty swallowing, mixes medication with food Tremor of both hands Dysmetria Memory loss Expected: 12/26/2024, Expires: 12/26/2025 documented as of this encounter Procedures Procedure Name Priority Date/Time Associated Diagnosis Comments POCT GLYCATED HEMOGLOBIN, TOTAL Routine 12/26/2024 3:07 PM EDT Tremor of both hands POCT GLUCOSE Routine 12/26/2024 3:07 PM EDT Tremor of both hands documented in this encounter Results * POCT HGB A1C (12/26/2024 3:07 PM EDT) Hemoglobin A1C 5.6 4.0 - 6.0 % QC Media Lot # [id number] Lot# Expiration Date Blood 12/26/2024 3:07 PM EDT Tammi Sorenson MD POINT OF CARE JUAN T ENTER/EDIT ORDERABLES Final Result * POCT Glucose (12/26/2024 3:07 PM EDT) Glucose Blood, POC 83 60 - 200 mg/dL QC Media Lot # [id number] Lot# Expiration Date Blood Capillary blood specimen / Unknown 12/26/2024 3:07 PM EDT Tammi Sorenson MD POINT OF CARE JUAN T ENTER/EDIT ORDERABLES Final Result documented in this encounter Visit Diagnoses Diagnosis Difficulty swallowing, mixes medication with food- Primary Low back pain associated with a spinal disorder other than radiculopathy or spinal stenosis Dietary counseling Dietary surveillance and counseling Exercise counseling Seizure (CMS/HCC) Other convulsions Tremor of both hands Dysmetria Lack of coordination Memory loss Annual physical exam Routine general medical examination at a health care facility Human leukocyte antigen B27 spondyloarthropathy Fibromyositis Unspecified myalgia and myositis Back pain, unspecified back location, unspecified back pain laterality, unspecified chronicity Mixed anxiety and depressive disorder Dysthymic disorder LTBI (latent tuberculosis infection) Nonspecific reaction to tuberculin skin test without active tuberculosis Health care maintenance Uterine leiomyoma, unspecified location Prediabetes Other abnormal glucose Onychomycosis Dermatophytosis of nail documented in this encounter Additional Health Concerns Assessment Noted Time PHQ-9 Depression Total Score: 8 12/27/19 25 3:12 PM EDT documented as of this encounter Care Teams Door Closer Relationship Specialty Start Date End Date Tammi Burgess MD [address] [place] [id number] PCP - General Internal Medicine 04/13/23 documented as of this encounter
== END 2024-12-29 06:06 | disposition home or self-care (01) ==
LOC: CF 06:05
PROVIDERS: Visit Provider Internal Medicine
DX: M47.816 Spondylosis without myelopathy or radiculopathy, lumbar region (principal); Q76.49 Other congenital malformations of spine, not associated with scoliosis
CPT/HCPCS: 64493; 64494; J2003; J2795; J3301; Q9967

== ENCOUNTER 2024-12-29 09:56 | Outpatient (AMB) | payer MEDICAID, SELFPAY ==
--- NOTE | 2024-12-29 10:07 | A.OFFVIS_ITS ---
Vital Signs 12/29/24 10:08 12/29/24 10:36 BP 112/65 107/64 Blood Pressure Location Lt brachial Lt brachial Position Sitting Sitting Respiration 16 16 Pulse 80 72 Pulse Source Pulse Oximeter Pulse Oximeter Pulse Oximetry (%) 98 96 Oxygen Delivery Method Room Air Room Air Intake Visit Reasons: LEFT L4, L5 AND L5, S1 FACET INJECTION Spinner Concrete Pipe Required: Yes Spinner Concrete Pipe Services: Spinner Concrete Pipe Present Spinner Concrete Pipe Name: Megan [id number] Allergies aspirin [ASPIRIN] Allergy (Unknown, Verified 12/29/24 10:08) SWELLING, facial swelling Medication List - Last Reconciled 12/29/24 by Enedelia Quispe LPN celecoxib (Celebrex) 200 mg PO DAILY PRN clonazepam 0.5 mg PO BEDTIME cyclobenzaprine 5 mg PO BEDTIME PRN dicyclomine 10 mg PO TID divalproex (Depakote) 750 mg (1.5 x 500 mg) PO BID 30 days famotidine 20 mg PO BID gabapentin 300 mg PO TID lidocaine 5% patches topical triamcinolone acetonide 0.1% appl topical HPI HPI LEFT L4, L5 AND L5, S1 FACET INJECTION: Details: Patient presents for scheduled procedure. Denies any recent cough, cold, infection, fever or other significant changes in medical history since last office visit. [facility] Medical History Osteoarthritis of knees, bilateral Migraine Anxiety disorder Fibromyalgia Seizure Surgical History History of cholecystectomy History of tubal ligation Family History Maternal Grandmother Diabetes Father HTN (hypertension) Mother HTN (hypertension) Social History Household Members: Spouse Household Members Other:: son Housing: House Are you a primary rn urgent care to a significant other at home: No Do you presently have visiting nurse or other home services: No Alcohol intake: current Alcohol intake frequency: holidays/special occasions only Patient Tobacco Use Status: Never used Tobacco Current occupational status: employed 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 The patient was placed in a prone position. The respective lumbosacral area was prepped with chloraprep and draped in sterile fashion. The target facet joints were visualized using ipsilateral oblique fluoroscopy to reveal the joint line. The skin over the target facet joints was anesthetized with 0.5% lidocaine. A 22 gauge 3.5 inch needle with a small bend on the tip was advanced towards the target facet joint under fluoroscopic guidance until bony contact. The needle was then maneuvered and rotated until it slid into the joint slightly. No paresthesias were elicited with needle placement and aspiration was negative for blood and CSF. Next, 13mg of triamcinolone mixed with 0.5 ml 0.5% ropivicaine was injected (0.5cc total per level). The needle was then directed towards the pseudoarticulation joint line and a similar process was followed to introduce the needle into the pseudoarticulation and 26 mg of triamcinolone mixed with 3 mL of ropivacaine 0.5% was injected after needle position confirmation with contrast injection. The skin was cleansed and a sterile bandage was applied. Following the procedure the patient's vital signs were stable. The patient tolerated the procedure well and no complications were encountered. Following the procedure the patient's vital signs were stable. The patient was discharged home in good condition with post-procedural instructions. Time Out: Immediately prior to the procedure, the following was verbally confirmed that there is a signed consent form and that the correct patient, planned procedure, site and side are consistent with documentation and that necessary equipment and/or blood products are available prior to the start of the case. 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 Patient tolerated procedure well and was discharged home in stable condition with discharge instructions. All questions were answered. We will follow-up via telephone or in clinic to assess response to therapy. A follow-up appointment was made during today's visit. Orders: Orders FL guidance in treatment room 12/29/24 Gail Lr APRN, EMBRYOLOGY TEACHER M47.816 - Spondylosis without myelopathy or radiculopathy, lumbar region AMB Facet Injection-Lumbar/Sacral Today Manny Bhatti MD M47.816 - Spondylosis without myelopathy or radiculopathy, lumbar region, Q76.49 - Other congenital malformations of spine, not associated with scoliosis Coding Level of Care Code Procedure Only Diagnoses Lumbar spondylosis M47.816 Bertolotti's syndrome Q76.49 CPT Codes Facet Injection-Lumbar/Sacral - CPT: 80411 - with Fluoroscopy ([id number])
[2024-12-29 10:08] VITALS: BP 112/65; PULSE 80; RESP 16; O2SAT 98
[2024-12-29 10:36] VITALS: BP 107/64; PULSE 72; RESP 16; O2SAT 96
== END 2024-12-29 10:37 | disposition home or self-care (01) ==
LOC: HO.PMCPRC 09:56
PROVIDERS: PCP Student in an Organized Health Care Education/Training Program; Visit Provider Internal Medicine
DX: M47.816 Spondylosis without myelopathy or radiculopathy, lumbar region (principal); Q76.49 Other congenital malformations of spine, not associated with scoliosis
CPT/HCPCS: 64493; 64494

== ENCOUNTER 2025-01-11 09:52 | Outpatient (REF) | payer MEDICAID, SELFPAY ==
--- NOTE | ~2025-01-11 | MR_ITS ---
CLINICAL HISTORY: pt with memory loss, dysmetria, bl hand tremor MR Brain without gadolinium Comparison: None provided Findings: No restricted diffusion. No intra-axial mass or hemorrhage. No midline shift. No hydrocephalus. Vascular flow voids are intact. The orbits are normal. The sinuses and mastoid air cells are clear. No focal bone lesion. IMPRESSION: No acute findings. This document has been electronically signed by: Araceli Rufifn MD on 01/12/2025 08:46:50
--- OUTSIDE RECORDS SUMMARY | 2025-01-11 11:01 | XMS_ITS | Encounter Summary ---
Author Organization [employer] Address [address] [place] [address] Care Team Providers Care Advertising Display Rotator Name Role Phone Tammi Burgess MD Primary Care Pro vider Reason for Visit * Reason Comments Med Refill Encounter Details Date Type Department Care Team (Late st Contact Info) Description 08/11/2024 Refill [facility] MEDICINE [address] [place] [address] Tammi Burgess MD [address] [place], [place] [phone] Social History Tobacco Use Types Packs/Day Years [...] Care Team (Late st Contact Info) Description 01/18/2025 3:15 PM EDT Office Visit [facility] CHC ADULT DENTAL [address] [place] [address] Jamey Hussein, DMD [address] [place] [address] 02/06/2025 9:30 AM EDT Clinical Support [facility] MEDICINE [address] [place] [address] 03/02/2025 1:30 PM EDT Office Visit [address] [address] Tammi Burgess MD [address] [place] [address] documented as of this encounter Visit Diagnoses Not on filedocumented in this encounter Additional Health Concerns Assessment Noted Time PHQ-9 Depression Total Score: 5 10/20/19 24 10:39 AM EDT documented as of this encounter Care Teams Advertising Display Rotator Relationship Specialty Start Date End Date Tammi Bugress MD [address] [place] [address] PCP - General Internal Medicine 04/13/23 documented as of this encounter
== END 2025-01-11 09:53 | disposition home or self-care (01) ==
LOC: HO.MRI 09:52
PROVIDERS: PCP Student in an Organized Health Care Education/Training Program; Visit Provider Student in an Organized Health Care Education/Training Program
DX: R13.10 Dysphagia, unspecified (principal); R25.1 Tremor, unspecified; R27.8 Other lack of coordination; R41.3 Other amnesia
CPT/HCPCS: 70551

== ENCOUNTER → 2025-01-11 09:52 | Outpatient (BNV) | payer MEDICAID, SELFPAY | PROVIDERS: PCP Student in an Organized Health Care Education/Training Program; Visit Provider Radiology Diagnostic Radiology | DX: R41.3 Other amnesia (principal); R27.8 Other lack of coordination | CPT/HCPCS: 70551 ==

== ENCOUNTER 2025-01-20 09:35 | Outpatient (AMB) | payer MEDICAID, SELFPAY ==
--- NOTE | 2025-01-20 09:36 | MHC.OFFVIS ---
Vital Signs 01/20/25 09:38 Height 5 ft 2.5 in Weight 158 lb BMI 28.4 BP 118/78 Blood Pressure Location Rt brachial Position Sitting Respiration 16 Pulse 86 Pulse Source Pulse Oximeter Pulse Oximetry (%) 97 Oxygen Delivery Method Room Air Intake Visit Reasons: s/p LEFT L4, L5 AND L5, S1 FACET INJECTION Bereavement Counselor Required: Yes Bereavement Counselor Services: Bereavement Counselor Present Bereavement Counselor Name: [phone] Kristofer Allergies aspirin (ASPIRIN) Allergy (Unknown, Verified 01/20/25 09:39) SWELLING, facial swelling Medication List - Last Reconciled 01/20/25 by Enedelia Quispe LPN celecoxib (Celebrex) 200 mg PO DAILY PRN clonazepam 0.5 mg PO BEDTIME cyclobenzaprine 5 mg PO BEDTIME PRN dicyclomine 10 mg PO TID divalproex (Depakote) 750 mg (1.5 x 500 mg) PO BID 30 days famotidine 20 mg PO BID gabapentin 300 mg PO TID lidocaine 5% patches topical triamcinolone acetonide 0.1% appl topical HPI HPI s/p LEFT L4, L5 AND L5, S1 FACET INJECTION: Details: History of Present Illness The patient is a 54-year-old female presenting with chronic back pain. She reports receiving approximately 80% relief from her symptoms following the recent facet and L5 TP-articulation injection. The relief from the injection is expected to last between three to six months, after which the pain may return. Pain Description - Pain relief of approximately 80% following injection - Relief duration expected to be three to six months Physical Exam - Appears afebrile. - Alert and oriented. - Mood and affect appropriate. - Follows and participates in conversation appropriately. - Respiratory effort is unlabored. - Able to transition from sit to stand unassisted. - Ambulates with bilaterally normal heel strike and toe off. - Able to stand and walk on toes and heels. Pain Management - Analgesia: Injection provided approximately 80% pain relief - Activities of Daily Living: Currently relatively pain-free [facility] Medical History Osteoarthritis of knees, bilateral Migraine Anxiety disorder Fibromyalgia Seizure Surgical History History of cholecystectomy History of tubal ligation Family History Maternal Grandmother Diabetes Father HTN (hypertension) Mother HTN (hypertension) Social History Household Members: Spouse Household Members Other:: son Housing: House Are you a primary home health care provider to a significant other at home: No Do you presently have visiting nurse or other home services: No Alcohol intake: current Alcohol intake frequency: holidays/special occasions only Patient Tobacco Use Status: Never used Tobacco Current occupational status: employed 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 Sexual orientation: Straight/Heterosexual Gender identity: Female Female Reproductive History Menstrual Age of Menarche: 10 Physical Exam Vital Signs: Last Vital Signs Pulse 86 01/20/25 09:38 Resp 16 01/20/25 09:38 BP 118/78 01/20/25 09:38 Pulse Ox 97 01/20/25 09:38 Oxygen Delivery Method Room Air 01/20/25 09:38 BMI result Body Mass Index 28.4 Assessment & Plan Assessment & Plan (1) Lumbar spondylosis: Code(s): M47.816 - Spondylosis without myelopathy or radiculopathy, lumbar region Category: Medical (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 - Patient can call the office to schedule an injection without a prior visit, pending insurance approval. Patient was informed and verbally consented to the use of an ambient scribe for clinic note documentation during this visit. Discussion Notes I discussed with the patient that the injection provided approximately 80% relief from her chronic back pain. I advised her that the relief could last between three to six months, and she should return for another injection when the pain returns. The patient was informed that she could call the office to schedule the injection without a prior visit, subject to insurance approval. Patient Instructions - Monitor your pain levels and return for another injection when the pain returns. - You can call the office to schedule an injection without a prior visit, pending insurance approval. Coding Level of Care Code Est Pt Level 2 (15864) Diagnoses Lumbar spondylosis M47.816 Bertolotti's syndrome Q76.49
[2025-01-20 09:38] VITALS: BP 118/78; PULSE 86; RESP 16; O2SAT 97; BMI 28.4
--- OUTSIDE RECORDS SUMMARY | 2025-01-20 10:03 | XMS_ITS | Encounter Summary ---
Author Organization [employer] Address [address] [facility] [address] [place] [address] Care Team Providers Care Cad Manager Name Role Phone Tammi Burgess MD Primary Care Pro vider Reason for Visit * Reason Comments Med Refill Encounter Details Date Type Department Care Team (Late st Contact Info) Description 08/11/2024 Refill [facility] MEDICINE [address] [place] [address] Tammi Burgess MD [address] [place], [place] [phone] Social History Tobacco Use Types Packs/Day Years [...] Care Team (Late st Contact Info) Description 02/06/2025 9:30 AM EDT Clinical Support [address] [address] 03/02/2025 1:30 PM EDT Office Visit [facility] MEDICINE [address] [place] [address] Tammi Burgess MD [address] [place] [address] documented as of this encounter Visit Diagnoses Not on filedocumented in this encounter Additional Health Concerns Assessment Noted Time PHQ-9 Depression Total Score: 5 10/20/19 24 10:39 AM EDT documented as of this encounter Care Teams Cad Manager Relationship Specialty Start Date End Date Tammi Burgess MD [address] [place] [address] PCP - General Internal Medicine 04/13/23 documented as of this encounter
== END 2025-01-20 09:54 | disposition home or self-care (01) ==
LOC: HO.PMC 09:36
PROVIDERS: PCP Student in an Organized Health Care Education/Training Program; Visit Provider Internal Medicine
DX: M47.816 Spondylosis without myelopathy or radiculopathy, lumbar region (principal); Q76.49 Other congenital malformations of spine, not associated with scoliosis
CPT/HCPCS: 99212

== ENCOUNTER → 2025-01-20 09:35 | Outpatient (BNVA) | payer MEDICAID, SELFPAY | PROVIDERS: PCP Student in an Organized Health Care Education/Training Program; Visit Provider Internal Medicine | DX: M47.816 Spondylosis without myelopathy or radiculopathy, lumbar region (principal); Q76.49 Other congenital malformations of spine, not associated with scoliosis; G89.29 Other chronic pain | CPT/HCPCS: 99212 ==

== ENCOUNTER 2025-02-02 14:51 | Outpatient (AMB) | payer MEDICAID, SELFPAY ==
--- OUTSIDE RECORDS SUMMARY | 2025-02-02 14:54 | XMS_ITS | Encounter Summary ---
Author Organization [employer] Address [address] [facility] 7[address] [place] [address] Care Team Providers Care Manager Financial Reporting Name Role Phone Tammi Burgess MD Primary Care Pro vider Reason for Visit * Reason Comments Med Refill Encounter Details Date Type Department Care Team (Late st Contact Info) Description 08/11/2024 Refill [facility] MEDICINE [address] [place] [address] Tammi Burgess MD [address] [place], [place] [phone] Social History Tobacco Use Types Packs/Day Years [...] Description 02/06/2025 9:30 AM EDT Clinical Support [address] [address] 03/02/2025 1:30 PM EDT Office Visit [facility] MEDICINE [address] [place] [address] Tammi Burgess MD [address] [place] [address] documented as of this encounter Visit Diagnoses Not on filedocumented in this encounter Additional Health Concerns Assessment Noted Time PHQ-9 Depression Total Score: 5 10/20/19 24 10:39 AM EDT documented as of this encounter Care Teams Manager Financial Reporting Relationship Specialty Start Date End Date Tammi Burgess MD [address] [place] [phone] PCP - General Internal Medicine 04/13/23 documented as of this encounter
--- NOTE | 2025-02-02 14:56 | A.OFFVIS_ITS ---
Vital Signs 02/02/25 14:57 Height 5 ft 2.5 in Weight 158 lb BMI 28.4 Intake Visit Reasons: PO Right knee 12/02/24 DR Intake Note: Karen is a 54 year old male who presents for follow up after undergoing right knee arthroscopic surgery on 12/02/2024. She states that her right knee is feeling better when compared to her last visit. She would like to return to light duty at work in 2 weeks. She is no longer taking any medicine for her discomfort. Superintendent Construction Required: Yes Superintendent Construction Language: Voltage Inspector Services: Superintendent Construction Present Superintendent Construction Name: JEANNE XieAnahi/JARVIS Allergies aspirin (ASPIRIN) Allergy (Unknown, Verified 02/02/25 14:57) SWELLING, facial swelling Medication List - Last Reconciled 02/02/25 by Keyon Bowles MD celecoxib (Celebrex) 200 mg PO DAILY PRN clonazepam 0.5 mg PO BEDTIME cyclobenzaprine 5 mg PO BEDTIME PRN dicyclomine 10 mg PO TID divalproex (Depakote) 750 mg (1.5 x 500 mg) PO BID 30 days famotidine 20 mg PO BID gabapentin 300 mg PO TID lidocaine 5% patches topical triamcinolone acetonide 0.1% appl topical PFSH Medical History Osteoarthritis of knees, bilateral Migraine Anxiety disorder Fibromyalgia Seizure Surgical History History of cholecystectomy History of tubal ligation Family History Maternal Grandmother Diabetes Father HTN (hypertension) Mother HTN (hypertension) Social History Household Members: Spouse Household Members Other:: son Housing: House Are you a primary customer care assistant to a significant other at home: No Do you presently have visiting nurse or other home services: No Alcohol intake: current Alcohol intake frequency: holidays/special occasions only Patient Tobacco Use Status: Never used Tobacco Current occupational status: employed 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 Og continues to do well after undergoing right knee arthroscopic surgery on 12/02/2024. She will continue with her home exercise program. I will clear h er to return to light duty at work in 2 weeks as per her request. She will contact me prior to her follow-up appointment in 2-3 months should any questions or concerns arise. Coding Level of Care Code Global (83028) Diagnoses Right knee pain M25.561
[2025-02-02 14:57] VITALS: BMI 28.4
== END 2025-02-02 15:14 | disposition home or self-care (01) ==
PROVIDERS: PCP Student in an Organized Health Care Education/Training Program; Visit Provider Orthopaedic Surgery
DX: M25.561 Pain in right knee (principal)
CPT/HCPCS: 99024

== ENCOUNTER → 2025-02-02 14:51 | Outpatient (BNVA) | payer MEDICAID, SELFPAY | PROVIDERS: PCP Student in an Organized Health Care Education/Training Program; Visit Provider Orthopaedic Surgery | DX: M25.561 Pain in right knee (principal) | CPT/HCPCS: 99212 ==

== ENCOUNTER 2025-02-06 09:58 | Outpatient (REF) | payer MEDICAID, SELFPAY ==
[2025-02-06 11:39] LABS: Hematocrit 43.3 % (37.0-47.0); Hemoglobin 14.1 g/dl (12.0-16.0); Mean Corpuscular HGB Conc 32.6 g/dl (31.0-35.0); Mean Corpuscular Hemoglobin 31.3 pg (27.0-33.0); Mean Corpuscular Volume 96.0 fL (80.0-98.0); NRBC Abs Auto 0.000 X10*3/uL (0.0-0.012); NRBC Pct Auto 0.0 /100WBC (0.0-0.2); Platelet Count 223 X10*3/uL (160-400); Red Blood Count 4.51 X10*6/uL (4.20-5.50); White Blood Count 5.7 X10*3/uL (4.8-10.8)
[2025-02-06 11:56] LABS: Alanine Aminotransferase 13 U/L (0-31); Albumin Level 4.4 g/dL (3.5-5.0); Alkaline Phosphatase 64 U/L (39-117); Anion Gap 11 (12-20); Aspartate Amino Transferase 19 U/L (5-31); Blood Urea Nitrogen 13 mg/dL (9-16); Calcium 9.5 mg/dL (8.4-10.2); Carbon Dioxide 30 mmol/L (22-29); Chloride 104 mmol/L (96-108); Cholesterol 251 mg/dL (<200); Estimated Glomerular Filt Rate > 60; HDL Cholesterol 64 mg/dL (>40); Potassium 4.4 mmol/L (3.3-5.1); Sodium 141 mmol/L (135-145); Total Protein 8.2 g/dL (6.5-8.0); Triglycerides 176 mg/dL (<150)
[2025-02-06 11:58] LABS: Hemoglobin A1C 136.6335 umol/L; Total Hemoglobin (HGBA1C) 3762.4628 umol/L
[2025-02-06 12:18] LABS: Syphilis Screen Nonreactive (Nonreactive)
[2025-02-06 12:27] LABS: HBsAGNum1 0.41 S/CO (0.00-0.99); HIV Num 1 0.05 S/CO (0.00-0.99); Hepatitis B Surface Antigen Negative (Negative); ~HepC Num1 0.13 S/CO (0.00-0.79); ~Hepatitis C Antibody Nonreactive (Nonreactive)
[2025-02-06 12:36] LABS: Folate 15.9 ng/mL (> or = 4.0); Vitamin B12 645 pg/mL (200-900)
[2025-02-06 13:52] LABS: CT PCR Urine NOT DETECTED (Not Detect.); NG PCR Urine NOT DETECTED (Not Detect.)
== END 2025-02-06 09:59 | disposition home or self-care (01) ==
LOC: HO.HHCL 09:58
PROVIDERS: PCP Student in an Organized Health Care Education/Training Program; Visit Provider Student in an Organized Health Care Education/Training Program
DX: Z00.00 Encounter for general adult medical examination without abnormal findings (principal)
CPT/HCPCS: 36415; 80053; 80061; 82607; 82746; 83036; 84443; 85027; 86780; 86803; 87340; 87389; 87491; 87591

== ENCOUNTER 2025-02-27 13:56 | Outpatient (REF) | payer MEDICAID, SELFPAY ==
--- OUTSIDE RECORDS SUMMARY | 2025-02-27 14:07 | XMS_ITS | Encounter Summary ---
Author Organization [employer] Address [address] [facility] [address] [place] [address] Care Team Providers Care Branch Operation Evaluation Manager Name Role Phone Tammi Burgess MD Primary Care Pro vider Reason for Visit * Reason Comments Med Refill Encounter Details Date Type Department Care Team (Late st Contact Info) Description 08/11/2024 Refill [facility] MEDICINE [address] [place] [address] Tammi Burgess MD [address] [place], [place] [phone] Social History Tobacco Use Types Packs/Day Years [...] Care Team (Late st Contact Info) Description 03/02/2025 1:30 PM EDT Office Visit [facility] MEDICINE [address] [place] [address] Tammi Burgess MD [address] [place] [address] documented as of this encounter Visit Diagnoses Not on filedocumented in this encounter Additional Health Concerns Assessment Noted Time PHQ-9 Depression Total Score: 5 10/20/19 24 10:39 AM EDT documented as of this encounter Care Teams Branch Operation Evaluation Manager Relationship Specialty Start Date End Date Tammi Burgess MD [address] [place] [address] PCP - General Internal Medicine 04/13/23 documented as of this encounter
--- OUTSIDE RECORDS SUMMARY | 2025-02-27 14:07 | XMS_ITS | Encounter Summary ---
Author Organization [facility] Address [address] [facility] [address] [place] [phone] Phone Care Team Providers Care Coffee Farmer Name Role Phone Popeye Vera KENNEL WORKER Primary Care Provider [phone] Encounter Details Date Type Department Care Team (Late st Contact Info) Description 12/17/2018 Ancillary Orders [facility] [address] [place] [address] [place] [address] Fab Berry DO [address] [place] [address] Palpitations Social History Tobacco Use Types Packs/Day Years Used Date Smoking Tobacco: Never Assessed Comments Unknown Sex and Gender Information Value Date Recorded Sex Assigned at Not on file Legal Sex Female 2:58 PM EDT Gender Identity Not on file Sexual Orientation Not on file documented as of this encounter Plan of Treatment Not on file documented as of this encounter Results * Holter Monitor 48 Hours (12/17/2018 11:32 AM EDT) Anatomical Region Laterality Modality Heart Other Narrative 12/17/2018 12:49 PM EDT 48-hour monitor: Baseline rhythm is sinus with a minimum heart rate of 51, maximum 132, average 78 bpm. Rare PACs and PVCs present. There is a single 10 beat run of nonsustained ventricular tachycardia present. There is no diary returned. Impression: Abnormal 48-hour monitor due to a single 10 beat run of nonsustained ventricular tachycardia. No diary returned. Procedure Note Wallace Hoover MD - 12/17/2018 48-hour monitor: Baseline rhythm is sinus with a minimum heart rate of 51,maximum 132, average 78 bpm. Rare PACs and PVCs present. There is asingle 10 beat run of nonsustained ventricular tachycardia present. Thereis no diary returned. Impression: Abnormal 48-hour monitor due to a single 10 beat run ofnonsustained ventricular tachycardia. No diary returned. Fab Berry CV CARDIAC SERVICES ORDERABLE S Final Result documented in this encounter Visit Diagnoses Diagnosis Palpitations Palpitations documented in this encounter Care Teams Coffee Farmer Relationship Specialty Start Date End Date Popeye Vera NP [address] [place] [address] PCP - General 12/16/18 documented as of this encounter Additional Source Comments The information contained in this document represents components of the legal health record. It is not the complete legal health record.[facility]
== END 2025-02-27 13:57 | disposition home or self-care (01) ==
LOC: HO.MAMMO 13:56
PROVIDERS: PCP Student in an Organized Health Care Education/Training Program; Visit Provider Student in an Organized Health Care Education/Training Program
DX: Z12.31 Encounter for screening mammogram for malignant neoplasm of breast (principal)
CPT/HCPCS: 77063; 77067

== ENCOUNTER 2025-02-27 14:54 | Outpatient (AMB) | payer MEDICAID, SELFPAY ==
--- NOTE | 2025-02-27 15:34 | MHC.OFFVIS ---
Intake Visit Reasons: 3m f/u [employer] Chief Scientist Required: Yes [employer] Chief Scientist Name: #[id number] Allergies aspirin (ASPIRIN) Allergy (Unknown, Verified 02/27/25 15:34) SWELLING, facial swelling Medication List - Last Reconciled 02/27/25 by Melinda Ramirez CNP celecoxib (Celebrex) 200 mg PO DAILY PRN cyclobenzaprine 5 mg PO BEDTIME PRN dicyclomine 10 mg PO TID divalproex (Depakote) 500 mg orally 1 tab in AM and 2 tabs at bedtime; famotidine 20 mg PO BID gabapentin 300 mg PO TID lidocaine 5% patches topical triamcinolone acetonide 0.1% appl topical HPI Comments Details: 54-year-old woman with epilepsy causing nocturnal generalized seizures and anxiety disorder. She was doing okay. She had one seizure in sleep around mid-January. She was unsure if she missed any doses of Depakote. She stopped taking clonazepam due to shaking in hands and was concerned it may be related to medication. No change in shaking in hands after stopping medication. It was hard to hold her cell phone steady because of the shaking in her hands. She was still anxious and under stress. She woke a few times during the night to use the bathroom. She was not working with a therapist or psychiatrist at this time. No significant headaches. [facility] Medical History (Updated 02/27/25 @ 15:51 by Melinda Ramirez CNP) Epilepsy Seizure disorder Dizziness Osteoarthritis of knees, bilateral Migraine Anxiety disorder Fibromyalgia Seizure Surgical History History of cholecystectomy History of tubal ligation Family History Maternal Grandmother Diabetes Father HTN (hypertension) Mother HTN (hypertension) Social History Household Members: Spouse Household Members Other:: son Housing: House Are you a primary care manager to a significant other at home: No Do you presently have visiting nurse or other home services: No Alcohol intake: current Alcohol intake frequency: holidays/special occasions only Patient Tobacco Use Status: Never used Tobacco Current occupational status: employed 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 Sexual orientation: Straight/Heterosexual Gender identity: Female Female Reproductive History Menstrual Age of Menarche: 10 Review of Systems Const Denies chills, Denies daytime sleepiness, Reports difficulty sleeping, Denies fatigue, Denies fever(s), Denies frequent falls, Denies headache(s), Denies increased appetite, Denies poor appetite, Denies snoring, Denies weakness, Denies weight gain and Denies weight loss Eyes Denies loss of vision ENT Denies vertigo, Reports dizziness and Denies headache(s) Card Denies chest pain at rest, Denies chest pain with activity, Denies syncope, Denies leg edema and Denies palpitations Resp Denies snoring GI Denies constipation, Denies heartburn, Denies diarrhea and Denies nausea Denies urinary frequency, Denies urinary incontinence and Denies urinary urgency Musc Denies abnormal gait, Denies numbness and Denies tingling Skin/Breast Denies dry skin and Denies rash Neuro Denies abnormal gait, Denies vertigo, Reports dizziness, Denies syncope, Denies frequent falls, Denies headache(s), Denies lack of coordination, Denies loss of vision, Denies memory loss, Denies numbness, Denies restless legs, Reports seizure-like activity, Denies tingling, Denies paresthesias, Denies tremor(s) and Denies weakness Psych Reports anxiety, Denies depression, Denies auditory hallucinations, Denies memory loss, Denies visual hallucinations and Denies suicidal ideation Endo Denies fatigue and Denies palpitations Physical Exam Const Other: General Appearance:? normal, in no acute distress. Skin:? no rashes, no significant birthmarks. Heart:? S1, S2 normal, no murmurs. Lungs:? clear anteriorly and posteriorly. Extremities:? no edema. Psych:? alert, oriented, cognitive function intact, cooperative with exam. Neuro Other: Mental Status:?Normal attention, orientation, memory and affect.? Cranial Nerves:?Pupils are equal, round and reactive to light. External occular muscles are intact. Visual hathaway are full. Face is symmetrical. Facial sensations are normal. Tongue is midline. Palate elevates symmetrically. Shoulder shrugging is normal. Hearing to bedside conversation is normal. Coordination:?No ataxia,?no titubation.? Gait Exam: Within normal limits. Cerebellar Signs:?[id number] is okay. Extrapyramidal System:?No tremor, rigidity with normal facial expressions.? Pronator Drift:?Not present.? Involuntary Movements:?No tremors noted on exam at rest or with sustained posture or on FTN. Speech:?Normal.? Results Reviewed Results Reviewed: CT brain at [facility] in 2012 w/o cont: WNL MRI brain at [facility] w/o cont in 2012: minimal punctate WM changes MRI brain WWO at [facility] in 2012: Minimal WM changes EEG at office in Jun 2020: WNL Routine EEG at office in 2012: WNL 24 EEG at [facility] in 2012: revealed left temporal sharps 24 EEG at [facility] in 2013: WNL EEG at office in Aug 2014: WNL EEG at office in Sep 2015: WNL EEG at office in 2016: WNL Amb EEG at [facility] in January 2022: left temp sharps EEG at office in Jun 2024: WNL. Assessment & Plan Assessment & Plan (1) Epilepsy: Code(s): G40.909 - Epilepsy, unspecified, not intractable, without status epilepticus Category: Medical Qualifiers: Epilepsy type: unspecified Intractability: not intractable Status epilepticus: without status epilepticus Qualified Code(s): G40.909 - Epilepsy, unspecified, not intractable, without status epilepticus Plan: Continue Depakote 500mg 1 tablet in the morning and 2 tablets at bedtime. She was educated on the risk associated with missed doses of medication, including seizure. (2) Anxiety disorder: Code(s): F41.9 - Anxiety disorder, unspecified Category: Medical Qualifiers: Anxiety disorder type: unspecified anxiety disorder Qualified Code(s): F41.9 - Anxiety disorder, unspecified Plan: No medication side effects with clonazepam and medication was restarted, restart clonazepam 0.5mg 1 tablet at bedtime, use/side effects reviewed. There were no tremors noted on exam. She had significant component of anxiety, and would likely benefit from working with therapist, however she was not interested at this time. (3) Migraine: Code(s): G43.909 - Migraine, unspecified, not intractable, without status migrainosus Category: Medical Qualifiers: Migraine type: unspecified Status migrainosus presence: without status migrainosus Intractability: not intractable Qualified Code(s): G43.909 - Migraine, unspecified, not intractable, without status migrainosus Plan: No significant migraines. Medications: New clonazepam (Klonopin) 0.5 mg PO BEDTIME 30 tabs 2RF 30 days Coding Level of Care Code Est Pt Level 4 (22736) Diagnoses Nonintractable epilepsy without status epilepticus, unspecified epilepsy type G40.909 Epilepsy type: unspecified Intractability: not intractable Status epilepticus: without status epilepticus Anxiety disorder, unspecified type F41.9 Anxiety disorder type: unspecified anxiety disorder Migraine without status migrainosus, not intractable, unspecified migraine type G43.909 Migraine type: unspecified Status migrainosus presence: without status migrainosus Intractability: not intractable
== END 2025-02-27 16:00 | disposition home or self-care (01) ==
LOC: HO.HSM 14:55
PROVIDERS: PCP Student in an Organized Health Care Education/Training Program; Visit Provider Registered Nurse
DX: G40.909 Epilepsy, unspecified, not intractable, without status epilepticus (principal); F41.9 Anxiety disorder, unspecified; G43.909 Migraine, unspecified, not intractable, without status migrainosus
CPT/HCPCS: 99214

== ENCOUNTER 2025-02-27 16:00 | Outpatient (REF) | payer MEDICAID, SELFPAY ==
--- NOTE | ~2025-02-27 | US_ITS ---
EXAMINATION: US PELVIS CLINICAL INFORMATION: D25.9 - Leiomyoma of uterus, unspecified COMPARISON: 08/01/2024 TECHNIQUE: Ultrasound of the pelvis is performed using both transabdominal and transvaginal transducers along with Doppler. Transvaginal imaging is performed due to inadequate visualization transabdominally. FINDINGS: Uterus: The uterus is anteverted and measures 8.4 x 4.5 x 5.3 cm. Volume 105 mL, previously 124 mL. Calcification is noted in the cervix. The double wall endometrial thickness is 2 mm. The uterus is heterogeneous with multiple leiomyomas. 6 Leiomyomas are measured. Right upper body: 2.6 x 2.3 x 2.2, not previously seen. Right isthmus: 0.7 x 0.6 x 0.5, unchanged. Anterior fundus: 2.2 x 1.6 x 1.7 cm, unchanged. Posterior to upper endometrial canal/submucosal: 1.9 x 1.9 x 1.4 cm, previously 2.4 x 2.1 x 2.2 cm. Left lower body, subserosal: 2.5 x 2.1 x 2.5 cm, unchanged. Left isthmus: 0.8 x 0.7 x 0.6 cm: Previously seen. Adnexa: Both ovaries are visualized. There is normal color flow to the adnexa. There is no ovarian torsion. There is no pelvic ascites or fluid collection. Right ovary measures 1.3 x 0.8 x 1.8 cm. Left ovary measures 1.7 x 0.8 x 2.1 cm. US/US pelvic and transvaginal IMPRESSION: Multiple uterine leiomyomas are overall unchanged from the prior. Electronically signed by: Cornel Guardado MD 02/27/2025 05:43 PM EDT
== END 2025-02-27 16:01 | disposition home or self-care (01) ==
LOC: HO.US 16:00
PROVIDERS: PCP Student in an Organized Health Care Education/Training Program; Visit Provider Obstetrics & Gynecology
DX: D25.9 Leiomyoma of uterus, unspecified (principal); G40.909 Epilepsy, unspecified, not intractable, without status epilepticus; F41.9 Anxiety disorder, unspecified; G43.909 Migraine, unspecified, not intractable, without status migrainosus
CPT/HCPCS: 76830; 76856; 99212

== ENCOUNTER → 2025-02-27 16:04 | Outpatient (BNV) | payer MEDICAID, SELFPAY | PROVIDERS: PCP Student in an Organized Health Care Education/Training Program; Visit Provider Radiology Diagnostic Radiology | DX: D25.9 Leiomyoma of uterus, unspecified (principal) | CPT/HCPCS: 76830; 76856 ==

== ENCOUNTER 2025-03-13 15:12 | Outpatient (AMB) | payer MEDICAID, SELFPAY ==
--- NOTE | 2025-03-13 15:27 | A.OFFVIS_ITS ---
Vital Signs 03/13/25 15:32 Height 5 ft 2 in Weight 158 lb BMI 28.9 Intake Visit Reasons: ultrasound follow up Allergies aspirin (ASPIRIN) Allergy (Unknown, Verified 02/27/25 15:34) SWELLING, facial swelling HPI Comments Details: Presenting for follow-up ultrasound regarding uterine myoma seen on previous pelvic ultrasound. The patient is doing well with no complaints no vaginal bleeding, pelvic pressure or pain. Pelvic ultrasound done recently showed the following: Uterus: The uterus is anteverted and measures 8.4 x 4.5 x 5.3 cm. Volume 105 mL, previously 124 mL. Calcification is noted in the cervix. The double wall endometrial thickness is 2 mm. The uterus is heterogeneous with multiple leiomyomas. 6 Leiomyomas are measured. Right upper body: 2.6 x 2.3 x 2.2, not previously seen. Right isthmus: 0.7 x 0.6 x 0.5, unchanged. Anterior fundus: 2.2 x 1.6 x 1.7 cm, unchanged. Posterior to upper endometrial canal/submucosal: 1.9 x 1.9 x 1.4 cm, previously 2.4 x 2.1 x 2.2 cm. Left lower body, subserosal: 2.5 x 2.1 x 2.5 cm, unchanged. Left isthmus: 0.8 x 0.7 x 0.6 cm: Previously seen. Adnexa: Both ovaries are visualized. There is normal color flow to the adnexa. There is no ovarian torsion. There is no pelvic ascites or fluid collection. Right ovary measures 1.3 x 0.8 x 1.8 cm. Left ovary measures 1.7 x 0.8 x 2.1 cm. [facility] Medical History Epilepsy Seizure disorder Dizziness Osteoarthritis of knees, bilateral Migraine Anxiety disorder Fibromyalgia Seizure Surgical History History of cholecystectomy History of tubal ligation Family History Maternal Grandmother Diabetes Father HTN (hypertension) Mother HTN (hypertension) Social History Household Members: Spouse Household Members Other:: son Housing: House Are you a primary memory care program resident to a significant other at home: No Do you presently have visiting nurse or other home services: No Alcohol intake: current Alcohol intake frequency: holidays/special occasions only Patient Tobacco Use Status: Never used Tobacco Current occupational status: employed 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 Sexual orientation: Straight/Heterosexual Gender identity: Female Female Reproductive History Menstrual Age of Menarche: 10 Review of Systems Const All systems reviewed & are unremarkable except as noted in HPI and below Reports as per HPI and Reports no additional complaints GI Reports no additional complaints Reports no additional complaints Assessment & Plan Assessment & Plan (1) Uterine myoma: Code(s): D25.9 - Leiomyoma of uterus, unspecified Category: Medical Plan: Discussed with the patient the findings on pelvic ultrasound & the risk of myosarcoma; in addition reviewed with the patient that malignancy and pre malignancy cannot be ruled out without hysterectomy for pathological evaluation ; furthermore, explained to the patient the limitation of pelvic ultrasound and endometrial biopsy in the setting. Discussed with the patient the options of treatment including expectant management versus hysterectomy; the pros and cons, risks benefits of each approach were discussed with the patient including the fact that in cases of myosarcoma, surgical treatment can lead to early diagnosis and positively affects the prognosis; after further discussion, the patient decided to proceed with expectant management. Will repeat pelvic ultrasound periodically. Instructions given to patient to call in case any of the following occurs: pressure symptoms, vaginal bleeding, pelvic pain; and to schedule a 12 months pelvic ultrasound (order placed) and a follow-up appointment . All questions answered, the patient verbalized understanding and agreed with the plan . Orders: Orders US pelvic and transvaginal 12 Months D25.9 - Leiomyoma of uterus, unspecified Coding Level of Care Code Est Pt Level 3 (25768) Diagnoses Uterine myoma D25.9
[2025-03-13 15:32] VITALS: BMI 28.9
--- OUTSIDE RECORDS SUMMARY | 2025-03-13 15:47 | XMS_ITS | Encounter Summary ---
Author Organization [facility] Address [address] [place] [phone] Phone Care Team Providers Care Salvage Worker Name Role Phone Popeye Vera [employer] INST[employer]ER Primary Care Provider [phone] Encounter Details Date Type Department Care Team (Late st Contact Info) Description 12/17/2018 Ancillary Orders [facility] [address] [place] [address] [place] [address] Fab Berry DO [address] [place] [address] Palpitations Social History Tobacco Use Types Packs/Day [...] Palpitations documented in this encounter Care Teams Salvage Worker Relationship Specialty Start Date End Date Popeye Vera NP [address] [place] [address] PCP - General 12/16/18 documented as of this encounter Additional Source Comments The information contained in this document represents components of the legal health record. It is not the complete legal health record.[facility]
--- OUTSIDE RECORDS SUMMARY | 2025-03-13 15:47 | XMS_ITS | Encounter Summary ---
Author Organization [employer] Address [address] [place] [address] Care Team Providers Care Route Sales Representative Name Role Phone Tammi Burgess MD Primary Care Pro vider Reason for Visit * Reason Comments Med Refill Encounter Details Date Type Department Care Team (Late st Contact Info) Description 08/11/[address] [facility] [address] [place] [address] Tammi Burgess MD [address] [place], [place] [id number] Social History Tobacco Use Types Packs/Day Years [...] on file documented as of this encounter Visit Diagnoses Not on filedocumented in this encounter Additional Health Concerns Assessment Noted Time PHQ-9 Depression Total Score: 5 10/20/19 24 10:39 AM EDT documented as of this encounter Care Teams Route Sales Representative Relationship Specialty Start Date End Date Tammi Burgess MD [address] [place] [id number] PCP - General Internal Medicine 04/13/23 documented as of this encounter
== END 2025-03-13 15:43 | disposition home or self-care (01) ==
LOC: HO.HWS 15:13
PROVIDERS: PCP Student in an Organized Health Care Education/Training Program; Visit Provider Obstetrics & Gynecology
DX: D25.9 Leiomyoma of uterus, unspecified (principal)
CPT/HCPCS: 99213

== ENCOUNTER → 2025-03-13 15:12 | Outpatient (BNVA) | payer MEDICAID, SELFPAY | PROVIDERS: PCP Student in an Organized Health Care Education/Training Program; Visit Provider Obstetrics & Gynecology | DX: D25.9 Leiomyoma of uterus, unspecified (principal) | CPT/HCPCS: 99212 ==

== ENCOUNTER 2025-04-12 09:53 | Outpatient (REF) | payer MEDICAID, SELFPAY ==
--- OUTSIDE RECORDS SUMMARY | 2025-04-11 19:20 | XMS_ITS | Encounter Summary ---
Author Organization [employer] Address [address] [facility] [address] [place] [address] Care Team Providers Care Lamination Builder Name Role Phone Tammi Burgess MD Primary Care Pro vider Encounter Details Date Type Department Care Team ([facility] st Contact Info) Description 04/11/2025 7:20 PM EDT Office Visit [facility] [address] [place], [place] [phone] Epigastric pain (Primary Dx) Social History Tobacco [...] 2:15 PM EDT documented in this encounter Plan of Treatment Scheduled Orders Name Type Priority Associated Diagnoses Orde r Schedule Helicobacter pylori Antigen, EIA, Stool Lab Routine Epigastric pain Expected: 04/11/2025, Expires: 04/11/2026 Leukocytes Stool Qualitative Lab Routine Epigastric pain Expected: 04/11/2025, Expires: 04/11/2026 Stool - Gastrointestinal panel Microbiology Routine Epigastric pain Expected: 04/11/2025 (Approximate), Expires: 04/11/2026 CBC auto differential Lab Routine Epigastric pain Expected: 04/11/2025 (Approximate), Expires: 04/11/2026 Comprehensive Metabolic Panel Lab Routine Epigastric pain Expected: 04/11/2025 (Approximate), Expires: 04/11/2026 documented as of this encounter Visit Diagnoses Diagnosis Epigastric pain- Primary Abdominal pain, epigastric documented in this encounter Additional Health Concerns Assessment Noted Time PHQ-9 Depression Total Score: 8 12/27/19 25 3:12 PM EDT documented as of this encounter Care Teams Lamination Builder Relationship Specialty Start Date End Date Tammi Burgess MD [address] [place] [phone] PCP - General Internal Medicine 04/13/23 documented as of this encounter
[2025-04-12 11:31] LABS: Hematocrit 40.0 % (37.0-47.0); Hemoglobin 12.8 g/dl (12.0-16.0); Imm Gran Abs Auto 0.14 X10*3/uL (0.00-0.03); Imm Gran Pct Auto 1.3 % (0.0-0.4); Lymphocytes Absolute Auto 2.1 X10*3/uL (1.2-4.9); MANUAL DIFF FLAG SCAN; Mean Corpuscular HGB Conc 32.0 g/dl (31.0-35.0); Mean Corpuscular Hemoglobin 30.6 pg (27.0-33.0); Mean Corpuscular Volume 95.7 fL (80.0-98.0); NRBC Abs Auto 0.000 X10*3/uL (0.0-0.012); NRBC Pct Auto 0.0 /100WBC (0.0-0.2); Platelet Count 164 X10*3/uL (160-400); Red Blood Count 4.18 X10*6/uL (4.20-5.50); SCAN SMEAR FLAG 1; White Blood Count 10.4 X10*3/uL (4.8-10.8)
--- OUTSIDE RECORDS SUMMARY | 2025-04-12 11:46 | XMS_ITS | Encounter Summary ---
Author Organization [employer] Address [address] [place] [address] 7 [place] [address] Care Team Providers Care Software Project Engineer Name Role Phone Tammi Burgess MD Primary Care Pro vider Reason for Visit * Reason Onset Date Comments Nurse Triage 07/16/2023 Encounter Details Date Type Department Care Team ([facility] st Contact Info) Description 07/16/2023 Telephone [facility] [address] [place] [address] Tammi Burgess MD [address] [place] [address] Nurse Triage Social History Tobacco Use Types [...] encounter Miscellaneous Notes * Telephone Encounter - rAiela Walker MD - 07/21/2023 9:29 PM EST Xray reviewed. Xray shows arthritis and large effusion.Pt is a good candidate for knee injection * Telephone Encounter - Leyla Vickers RN - 07/16/2023 4:32 PM EST Triage call with [employer] [place] [id number] Pt requests for Pt to speak for Pt. Pt has acute right knee pain. Pt has been seen in [facility] 07/09/23. Pt was prescribed tylenol 500mg, brace, voltaren gel and xrays. Xrays have been done. Pt isasking what xray results are insurance underwriter advised that there is evidence [...] documented in this encounter Plan of Treatment Not on file documented as of this encounter Visit Diagnoses Not on filedocumented in this encounter Care Teams Software Project Engineer Relationship Specialty Start Date End Date Tammi Burgess MD [address] [place] [phone] PCP - General Internal Medicine 04/13/23 documented as of this encounter
--- OUTSIDE RECORDS SUMMARY | 2025-04-12 11:46 | XMS_ITS | Encounter Summary ---
Author Organization [employer] Address [address] [place] [address] [address] [place] [address] Care Team Providers Care Silk Screen Processor Name Role Phone Charito Lawrence SUPER[employer]OR [employer] Primary Care Provider Tammi Downs MD Primary Care Pro vider Encounter Details Date Type Department Care Team (Latest Contact Info) Description 07/29/2018 Abstract [facility] Dental, Provider, DDS Social History Tobacco [...] on filedocumented in this encounter Care Teams Silk Screen Processor Relationship Specialty Start Date End Date Charito Lawrence FNP PCP - General Family Medicine 05/17/21 04/12/23 Tammi Burgess MD [address] [place] [address] PCP - General Internal Medicine 04/13/23 documented as of this encounter
--- OUTSIDE RECORDS SUMMARY | 2025-04-12 11:46 | XMS_ITS | Clinical Summary ---
Author Organization [employer] Address [address] [place] [address] [address] [place] [address] Care Team Providers Care Offset Printer Name Role Phone Tammi Burgess MD Primary Care Pro vider Allergies Active Allergy Reactions Criticality Noted Date Comments Aspirin Itching 10/06/2022 Tolerated NSAIDS w no problem Medications triamcinolone (Kenalog) 0.1 % creamIndications: Rash of foot Apply topically if needed in the morning and at bedtime (pain and swelling). 30 g 07/13/20 23 Active clonazePAM (KlonoPIN) 0.5 MG tablet Take 0.5 mg by mouth at bedtime. 05/16/20 24 Active divalproex (Depakote) 500 MG EC tablet TAKE 1 TABLET BY MOUTH EVERY MORNING AND TAKE 2 TABLETS BY MOUTH EVERY EVENING 90 tablet 1 10/11/19 25 Active dicyclomine (Bentyl) 10 MG capsule Take 1 capsule (10 mg) by mouth 3 times daily. 60 capsule 12/21/19 25 Active celecoxib (CeleBREX) 200 MG capsule TAKE 1 CAPSULE BY MOUTH EVERY DAY NEEDED FOR PAIN 12/21/19 25 Active pregabalin (Lyrica) 25 MG capsule Take 1 capsule (25 mg) by mouth 2 times daily. 60 capsule 1 03/02/20 25 026 Active fish oil (fish oil) 1000 MG capsule Take 1 capsule (1,000 mg) by mouth Once per day. 90 capsule 1 03/02/20 25 Active lidocaine (Lidoderm) 5 % patch APPLY 1 PATCH TOPICALLY TO SKIN, LEAVE ON FOR 12 HOURS AND OFF FOR 12 HOURS DIRECTED 30 patch 2 03/10/20 25 Active Diclofenac Sodium 1 % gelIndications:Lo w back pain associated with a spinal disorder other than radiculopathy or spinal stenosis APPLY TO THE AFFECTED AREA(S) FOUR TIMES DAILY NEEDED 100 g 2 03/10/20 25 Active Acetaminophen Extra Strength 500 MG tablet TAKE 1 TABLET BY MOUTH EVERY 6 HOURS NEEDED FOR MILD PAIN 30 tablet 04/05/20 25 Active omeprazole OTC (PriLOSEC OTC) 20 MG EC tabletIndications :Epigastric pain Take 1 tab po BID for 14 days. 28 tablet 04/11/20 25 Active Acetaminophen Extra Strength 500 MG tablet Take 1 tablet (500 mg) by mouth every 6 (six) hours if needed (for mild pain). 30 tablet 12/21/19 25 025 Discontinued Active Problems Problem Noted Date Diagnosed Date Tremor of both hands 12/26/2024 Memory loss 12/26/2024 Onychomycosis 12/26/2024 LTBI (latent tuberculosis infection) 03/22/2024 Prediabetes 12/16/2023 Hyperlipidemia 12/16/2023 Epigastric pain 12/16/2023 Human leukocyte antigen [...] cancer: Never smoker Eye: 02/2023 WNL at [facility] Dental: up to date Hernia of abdominal [...] Encounters Date Type Department Care Team Description 04/11/2025 7:20 PM EDT Office Visit [facility] [address] [place] [phone] Epigastric pain (Primary Dx) 04/11/2025 Travel 04/04/2025 Refill [facility] [address] [place] [address] Tammi Burgess MD 03/10/2025 Refill [facility] [address] [place] [address] Tammi Burgess MD Low back pain associated with a spinal disorder other than radiculopathy or spinal stenosis 03/10/[address] [address] Tammi Burgess MD Results 03/09/2025 Results Follow-Up [address] [address] Tammi Burgess MD BI Mammogram Screening Tomosynthesis Bilateral 03/02/2025 1:30 PM EDT Office Visit [address] [address] Tammi Burgess MD Hyperlipidemia, unspecified hyperlipidemia type (Primary Dx); Uterine leiomyoma, unspecified location; Health care maintenance; Mixed anxiety and depressive disorder; Fibromyositis; Tremor of both hands; Onychomycosis 03/02/2025 Travel 02/06/2025 9:30 AM EDT Clinical Support [facility] [address] [facility] [place] [address] Rashmi Horne RN Memory loss 02/06/2025 Orders Only [facility] [address] [facility] [place] [address] Tammi Burgess MD 02/06/2025 Travel 01/18/2025 3:15 PM EDT Office Visit [facility] [address] [place] [address] Jamey Hussein, DMD Full coverage crown needed for root canal-treated tooth (Primary Dx) 01/13/2025 Results Follow-Up [facility] [address] [facility] [place] [address] Tammi Burgess MD MR Brain w/o Contrast, POCT Glucose, POCT HGB A1C, Additional followed-up results: 10 from Last 3 Months Immunizations Immunization Administration Dates Next Due Hep B, adult [...] Not Answered Alcohol Use Standard Drinks/Week Comments Not Currently [...] 12.8 oz) 04/11/2025 6:06 PM EDT Height 158.8 cm (5' 2.5 ) 12/26/2024 2:15 PM EDT Body Mass Index 29.66 12/26/2024 2:15 PM EDT Plan of Treatment Health Maintenance Due Date Last Done Comments CT Colonography 1970 FIT DNA/Cologuard 1970 FIT 1970 FOBT 1970 Sigmoidoscopy 1970 Pneumococcal Vaccine: 50+ Years (1 of 1 - PCV) 2020 Dental Oral Exam 09/18/2024 03/17/2024, , 07/28/2018 Dental X-Ray: Bitewings 12/15/2024 12/15/19 24, 02/19/2023, 07/28/2018 COVID-19 Vaccine ( - season) 2025 10/29/2021, 11/02/2020 Influenza Vaccine (#1) 2025 07/28/2018 Alcohol/Substance Use Screening 06/22/2025 06/22/2024 Dental Prophylaxis 06/24/2025 12/21/2024, 1 08/17/2023, 12/15/2023, Additional history exists SDOH Screening 12/16/2025 12/16/2024 Depression Screening 12/26/2025 12/26/2024, 12/27/19 25 Disability Screening 12/26/2025 12/26/2024 Cervical Cancer Screening 01/11/2026 Pap Smear 01/11/2026 01/11/2021 Diabetes: Hemoglobin A1C 02/06/2026 025, 12/26/2024, 12/05/2023, Additional history exists Dental X-Ray: Full Mouth 02/20/2026 02/19/2023, 08/2018 Tobacco Screening 03/02/2026 03/02/2025 HPV/Cotest 08/15/2026 08/15/2021, 07/28, 01/11/2021, Additional history exists Mammogram 02/27/2027 02/27/2025, 08/2023, 11/02/2018 Colonoscopy 05/28/2029 05/28/2022 Colorectal Cancer Screening 05/28/2029 DTaP/Tdap/Td Vaccines (3 - Td or Tdap) 10/19/2033 10/20/2023, 09/10/2010 RSV Patients and Patients Aged 60 years or older (1 - 1-dose 75+ series) 2045 Zoster Vaccines Completed 06/15/2023, 04/13/2023 Hepatitis B Vaccines Completed 11/02/2023, 06/08/2023, 04/30/2023 HIV Screening Completed 02/06/2025, 11/24, 02/22/2022, Additional history exists Hepatitis C Screening Completed 02/06/2025 , 03/08/2024, 12/05/2023, Additional history exists HIB Vaccines Aged Out [...] patient's age to complete this topic Meningococcal B Vaccine Aged Out No l onger eligible based on patient's age to complete [...] Procedure Name Priority Date/Time Associated Diagnosis Comments US PELVIS TRANSVAGINAL Routine 4:30 PM EDT BI MAMMOGRAM SCREENING TOMOSYNTHESIS BILATERAL Routine 02/27/2025 2:00 PM EDT CHLAMYDIA/TRICHOMONAS/ NEISSERIA GONORRHOEAE, PCR, URINE Routine 02/06/2025 10:04 AM EDT VITAMIN B12/FOLATE, SERUM PANEL Routine 02/06/2025 10:04 AM EDT Annual physical exam TSH W/REFLEX TO FT4 Routine 02/06/2025 1 0:04 AM EDT Annual physical exam SYPHILIS SCREEN Routine 02/06/2025 10:04 AM EDT Annual physical exam LIPID PANEL, STANDARD Routine 02/06/2025 10:04 AM EDT Annual physical exam HIV 1/2 ANTIGEN/ANTIBODY, FOURTH GENERATION W/RFL Routine 02/06/2025 10:04 AM EDT Annual physical exam HEPATITIS C AB W/REFL TO HCV RNA, QN, PCR Routine 02/06/2025 10:04 AM EDT Annual physical exam HEPATITIS B SURFACE ANTIGEN, EIA Routine 02/06/2025 10:04 AM EDT Annual physical exam HEMOGLOBIN A1C Routine 02/06/2025 10:04 AM EDT Annual physical exam COMPREHENSIVE METABOLIC PANEL Routine 02/06/2025 10:04 AM EDT Annual physical exam CBC Routine 02/06/2025 10:04 AM EDT Annual physical exam CASE PRESENTATION, DETAILED AND EXTENSIVE TREATMENT PLANNING Routine 01/18/2025 3:15 PM EDT Full coverage crown needed for root canal-treated tooth 9 CROWN - PORCELAIN/CERAMIC Routine 01/18/2025 3:15 PM EDT Full coverage crown needed for root canal-treated tooth 8 CROWN - PORCELAIN/CERAMIC Routine 01/18/2025 3:15 PM EDT Full coverage crown needed for root canal-treated tooth MR BRAIN WO CONTRAST Routine 01/12/2025 8:46 AM EDT Difficulty swallowing, mixes medication with food Tremor of both hands Dysmetria Memory loss PROPHYLAXIS - ADULT Routine 12/21/2024 3 :00 PM EDT Dental plaque Localized gingival recession Missing teeth, acquired PERIODIC ORAL EVALUATION - ESTABLISHED PATIENT Routine 03/17/2024 3:00 PM EDT Secondary dental caries associated with failed or defective dental adventist Full coverage crown needed for root canal-treated tooth BITEWINGS - 4 RADIOGRAPHIC IMAGES Routine 12/15/2023 3:00 PM EDT Dental calculus Localized gingival recession INTRAORAL - COMPLETE SERIES OF RADIOGRAPHIC IMAGES Routine 02/19/2023 2:30 PM EDT Dental caries HM COLONOSCOPY Routine 05/28/2022 1:55 PM EDT ZZZ HISTORICAL HPV E6/E7 RFLX JACOB 16 18/45 Routine 08/15/2021 1:40 PM EST THINPREP PAP Routine 01/11/2021 11:51 AM EDT from Last 3 Months or Most Recently Relevant to Health Maintenance Results * US Pelvis Transvaginal (02/27/2025 4:30 PM EDT) Anatomical Region Laterality Modality Pelvis Ultrasound 02/27/2025 4:30 PM EDT Narrative 02/27/2025 5:46 PM EDT [address] [address] Ultrasound Report Signed Patient: Karen Og MR#: [id number] 4 : 1970 Acct:[id number] Age/Sex: 54 / F ADM Date: 02/27/25 Loc: HO.US Attending Dr: Juan Espinoza MD Ordering Physician: Juan Espinoza MD Date of Service: 02/27/25 Procedure(s): US pelvic and transvaginal Accession Number(s): [id number] cc: aTmmi Burgess MD; Juan Espinoza MD EXAMINATION: US PELVIS CLINICAL INFORMATION: D25.9 - Leiomyoma of uterus, unspecified COMPARISON: 08/01/2024 TECHNIQUE: Ultrasound of the pelvis is performed using both transabdominal and transvaginal transducers along with Doppler. Transvaginal imaging is performed due to inadequate visualization transabdominally. FINDINGS: Uterus: The uterus is anteverted and measures 8.4 x 4.5 x 5.3 cm. Volume 105 mL, previously 124 mL. Calcification is noted in the cervix. The double wall endometrial thickness is 2 mm. The uterus is heterogeneous with multiple leiomyomas. 6 Leiomyomas are measured. Right upper body: 2.6 x 2.3 x 2.2, not previously seen. Right isthmus: 0.7 x 0.6 x 0.5, unchanged. Anterior fundus: 2.2 x 1.6 x 1.7 cm, unchanged. Posterior to upper endometrial canal/submucosal: 1.9 x 1.9 x 1.4 cm, previously 2.4 x 2.1 x 2.2 cm. Left lower body, subserosal: 2.5 x 2.1 x 2.5 cm, unchanged. Left isthmus: 0.8 x 0.7 x 0.6 cm: Previously seen. Adnexa: Both ovaries are visualized. There is normal color flow to the adnexa. There is no ovarian torsion. There is no pelvic ascites or fluid collection. Right ovary measures 1.3 x 0.8 x 1.8 cm. Left ovary measures 1.7 x 0.8 x 2.1 cm. US/US pelvic and transvaginal IMPRESSION: Multiple uterine leiomyomas are overall unchanged from the prior. Electronically signed by: Cornel Guardado MD 02/27/2025 05:43 PM EDT RP Dictated By: Cornel Guardado MD Signed By: <Electronically signed by Cornel Guardado MD in OV> 02/27/25 1743 DD/ 1630 TD/TT: 02/27/25 1645 Website Developer: Procedure Note Donotuseinterpreter, Image - 02/27/2025 [place] [address] Ultrasound Report Signed Patient: Karen Og MMR#: [id number] 4 : 1970Acct:[id number] Age/Sex: 54 / FADM Date: 02/27/25 Loc: HO.US Attending Dr: Juan Espinoza MD Ordering Physician: Juan Espinoza MD Date of Service: 02/27/25 Procedure(s): US pelvic and transvaginal Accession Number(s): [id number] cc: Tammi Burgess MD; Juan Espinoza MD EXAMINATION: US PELVIS CLINICAL INFORMATION: D25.9 - Leiomyoma of uterus, unspecified COMPARISON: 08/01/2024 TECHNIQUE: Ultrasound of the pelvis is performed using both transabdominal and transvaginal transducers along with Doppler. Transvaginal imaging is performed due to inadequate visualization transabdominally. FINDINGS: Uterus: The uterus is anteverted and measures 8.4 x 4.5 x 5.3 cm. Volume 105 mL, previously 124 mL. Calcification is noted in the cervix. The double wall endometrial thickness is 2 mm. The uterus is heterogeneous with multiple leiomyomas. 6 Leiomyomas are measured. Right upper body: 2.6 x 2.3 x 2.2, not previously seen. Right isthmus: 0.7 x 0.6 x 0.5, unchanged. Anterior fundus: 2.2 x 1.6 x 1.7 cm, unchanged. Posterior to upper endometrial canal/submucosal: 1.9 x 1.9 x 1.4 cm, previously 2.4 x 2.1 x 2.2 cm. Left lower body, subserosal: 2.5 x 2.1 x 2.5 cm, unchanged. Left isthmus: 0.8 x 0.7 x 0.6 cm: Previously seen. Adnexa: Both ovaries are visualized. There is normal color flow to the adnexa. There is no ovarian torsion. There is no pelvic ascites or fluid collection. Right ovary measures 1.3 x 0.8 x 1.8 cm. Left ovary measures 1.7 x 0.8 x 2.1 cm. US/US pelvic and transvaginal IMPRESSION: Multiple uterine leiomyomas are overall unchanged from the prior. Electronically signed by: Cornel Guardado MD 02/27/2025 05:43 PM EDT Dictated By: Cornel Guardado MD Signed By: <Electronically signed by Cornel Guardado MD in OV> 02/27/25 1743 DD/ 1630 TD/TT: 02/27/25 1645 Website Developer: [facility] External Provider IMG US PROCEDURES Final Result * BI Mammogram Screening Tomosynthesis Bilateral (02/27/2025 2:00 PM EDT) Anatomical Region Laterality Modality Breast Bilateral Mammography 02/27/2025 2:00 PM EDT Narrative 03/09/2025 8:24 AM EDT [facility] [address] [place] [address] Mammography Report Signed Patient: Karen Og MR#: [id number] 4 : 1970 Acct:[id number] Age/Sex: 54 / F ADM Date: 02/27/25 Loc: HO.MAMMO Attending Dr: Tammi Sorenson MD Ordering Physician: Tammi Burgess MD Re sults: 1Negative Date of Service: 02/27/25 Follow Up: 1 Year From Orig inal Mammogram Procedure(s): MM tomosynthesis screening BI Accession Number(s): [id number] cc: Tammi Burgess MD EXAMINATION: MM SCREENING DIGITAL BREAST TOMOSYNTHESIS, BILATERAL CLINICAL INFORMATION: Screening. Asymptomatic. COMPARISON: Mammography: Comparison is made with available priors TECHNIQUE: Digital breast mammography with tomosynthesis is performed in both the craniocaudal and mediolateral oblique views along with computer-aided detection (CAD). FINDINGS: There are scattered areas of fibroglandular [...] for their next mammogram. Electronically signed by: Mary Schultz DO 03/09/2025 08:21 AM EDT Dictated By: Mary Schultz DO Signed By: <Electronically signed by Mary Schultz DO in OV> 03/09/25 0821 DD/ 1400 TD/TT: 02/27/25 1412 Website Developer: Procedure Note Donotuseinterpreter, Image - 03/09/2025 [facility] [address] [place] [address] Mammography Report Signed Patient: Karen Og MMR#: [id number] 4 : 1970Acct:[id number] Age/Sex: 54 / FADM Date: 02/27/25 Loc: HO.MAMMO Attending Dr: Tammi Sorenson MD Ordering Physician: Tammi Burgesse sults: 1Negative Date of Service: 02/27/25Follow Up: 1 Year From Orig inal Mammogram Procedure(s): MM tomosynthesis screening BI Accession Number(s): [id number] cc: Tammi Burgess MD EXAMINATION: MM SCREENING DIGITAL BREAST TOMOSYNTHESIS, BILATERAL CLINICAL INFORMATION: Screening. Asymptomatic. COMPARISON: Mammography: Comparison is made with available priors TECHNIQUE: Digital breast mammography with tomosynthesis is performed in both the craniocaudal and mediolateral oblique views along with computer-aided detection (CAD). FINDINGS: There are scattered areas of fibroglandular [...] for their next mammogram. Electronically signed by: Mary Schultz DO 03/09/2025 08:21 AM EDT Dictated By: Mary Schultz DO Signed By: <Electronically signed by Mary Schultz DO in OV> 03/09/25 0821 DD/ 1400 TD/TT: 02/27/25 1412 Website Developer: Tammi Sorenson MD IMG BI PROCEDURES Final Result * Chlamydia/Trichomonas/Neisseria gonorrhoeae, PCR, Urine (02/06/2025 10:04 AM EDT) CT PCR, Urine NOT DETECTED Not Detect. [facility] Comment:A not detected test result does not exclude the possibilityof infection because test results can be affected byimproper specimen collection, concurrent antibiotic therapy,or the number of organisms in the specimen which may bebelow the sensitivity of the test. As with many diagnostictests, results from the Xpert CT/NG assay should beinterpreted in conjunction with other laboratory andclinical data available to the clinician.The Xpert CT/NG assay should not be used for the evaluationof suspected sexual abuse or for other medico-legalindications. Additional testing is recommended in anycircumstance when false positive or false negative resultscould lead to adverse medical, social or psychologicalconsequences. NG PCR, Urine NOT DETECTED Not Detect. [facility] Comment:A not detected test result does not exclude the possibilityof infection because test results can be affected byimproper specimen collection, concurrent antibiotic therapy,or the number of organisms in the specimen which may bebelow the sensitivity of the test. As with many diagnostictests, results from the Xpert CT/NG assay should beinterpreted in conjunction with other laboratory andclinical data available to the clinician.The Xpert CT/NG assay should not be used for the evaluationof suspected sexual abuse or for other medico-legalindications. Additional testing is recommended in anycircumstance when false positive or false negative resultscould lead to adverse medical, social or psychologicalconsequences. 02/06/2025 10:0 4 AM EDT 02/06/2025 12:17 PM EDT Tammi Sorenson MD LAB URINE ORDERAB LES Final Result Performing Organization Address [facility]/ZIP Co de Phone Number [facility] [address] [place] [phone] * Syphilis Screen (02/06/2025 10:04 AM EDT) Syphilis Screen Nonreactive Nonreactive [facility] Blood 02/06/2025 10:0 4 AM EDT 02/06/2025 11:11 AM EDT us Tammi Sorenson MD LAB BLOOD ORDERAB LES Final Result Performing Organization Address [facility] Co de Phone Number [facility] [address] [place] [phone] * Vitamin B12 (Cobalamin) and Folate Panel, Serum (02/06/2025 10:04 AM EDT) Vitamin B12 645 200 - 900 pg/mL [facility] Comment:NORMAL 200-900 PG/M L INDETERMINATE 160-199 PG/ML DEFICIENT < 160 PG/ML Folate 15.9 > or = 4.0 ng/mL [facility] Comment:Reference Values:> o r = 4.0 ng/mL< 4.0 ng/mL suggests folate deficiency Methotrexate, aminopterin and folinic acid(leucovorin) are chemotherapeutic agents whose molecularstructures are similar to folate; therefore, the Architectfolate assay cannot be used for patients using these drugs. Blood 02/06/2025 10:0 4 AM EDT 02/06/2025 11:11 AM EDT Tammi Sorenson MD LAB BLOOD ORDERAB LES Final Result Performing Organization Address City/[facility]/ZIP Co de Phone Number [facility] [address] [place] [phone] * TSH with Reflex to Free T4 (02/06/2025 10:04 AM EDT) TSH reflex Free T4 2.27 0.32 - 4.0 uIU/mL [facility] Blood 02/06/2025 10:0 4 AM EDT 02/06/2025 11:11 AM EDT Tammi Sorenson MD LAB BLOOD ORDERAB LES Final Result Performing Organization Address City/[facility]/ZIP Co de Phone Number [facility] [address] [place] [phone] * Hepatitis C Antibody with Reflex to HCV, RNA, Quantitative, Real-Time PCR (02/06/2025 10:04 AM EDT) Hepatitis C Antibody Nonreactive Nonreactive [facility] Comment:Antibodies to HCV no t detected; does not exclude early acuteHCV infection. Blood Venous blood specimen / Unknown 02/06/2025 10:04 AM EDT 02/06/2025 11:11 AM EDT Tammi Sorenson MD LAB BLOOD ORDERAB LES Final Result Performing Organization Address City/[facility]/ZIP Co de Phone Number [facility] [address] [place] [phone] * Hepatitis B surface antigen, EIA (02/06/2025 10:04 AM EDT) Pathologist [facility] Hepatitis B Surface Ag Negative Negative [facility] Blood Venous blood specimen / Unknown 02/06/2025 10:04 AM EDT 02/06/2025 11:11 AM EDT us Tammi Sorenson MD LAB BLOOD ORDERAB LES Final Result Performing Organization Address [facility] Phone Number [facility] [address] [place] [phone] * HIV-1/2 Antigen and Antibodies, Fourth Generation, with Reflexes (02/06/2025 10:04 AM EDT) [facility] HIV AB/AG Nonreactive Nonreactive [facility] Comment:HIV-1 p24 Ag and/or HIV-1/HIV-2 Ab not detected.A test result that is nonreactive does not exclude thepossibility of exposure to or infection with HIV-1 and/orHIV-2. Nonreactive results in this assay for individualswith prior exposure to HIV-1 and/or HIV-2 may be due toantigen and antibody levels that are below the limit ofdetection of this assay.The [employer] HIV Ag/Ab Combo assay result andsupplemental assay results should be interpreted inconjunction with the patient's clinical presentation,history and other laboratory results. If the results areinconsistent with clinical evidence, additional testing issuggested to confirm the result. Blood Venous blood specimen / Unknown 02/06/2025 10:04 AM EDT 02/06/2025 11:11 AM EDT us Tammi Sorenson MD LAB BLOOD ORDERAB LES Final Result Performing Organization Address [facility] Co de Phone Number [facility] [address] [place] [phone] * CBC (02/06/2025 10:04 AM EDT) White Blood Count 5.7 4.8 - 10.8 X10*3/uL [facility] Red Blood Count 4.51 4.20 - 5.50 X10*6/uL [facility] Hemoglobin 14.1 12.0 - 16.0 g/dl [facility] Hematocrit 43.3 37.0 - 47.0 % [facility] Mean Corpuscular Volume 96.0 80.0 - 98.0 fL [facility] Mean Corpuscular Hemoglobin 31.3 27.0 - 33.0 pg [facility] Mean Corpuscular HGB Conc 32.6 31.0 - 35.0 g/dl [facility] Red Cell Distribution Width 13.8 11.0 - 16.0 % [facility] Platelet Count 223 160 - 400 X10*3/uL [facility] Mean Platelet Volume 9.9 9.4 - 12.3 fL [facility] NRBC Pct Auto 0.0 0.0 - 0.2 /100WBC [facility] NRBC Abs Auto 0.000 0.0 - 0.012 X10*3/uL [facility] Blood Venous blood specimen / Unknown 02/06/2025 10:04 AM EDT 02/06/2025 11:11 AM EDT us Tammi Sorenson MD LAB BLOOD ORDERAB LES Final Result [facility] [address] [place] [phone] * Hemoglobin A1c (02/06/2025 10:04 AM EDT) Hemoglobin A1c 5.5 <6.0 % [facility] Comment:Hemoglobin A1C Refer ence Range Adults: 4.8 - 6.0 % Non diabetic: < 6.0 % Goal: < 7.0 %Additional Action Suggested: > 8.0 %Note: Hemoglobin A1c results are invalid for patients with abnormal amounts of HbF. Blood transfusions may impact the HbA1c concentration in the patient sample. Estimated Average Glucose 111 mg/dL [facility] Comment:eAG = Estimated ave rage glucose which is %A1C expressed asaverage glucose, using the formula of the L4Q-[id number] Glucose study (ADAG), Diabetes Care, Vol.31,#8,Feb. 2007 Blood Venous blood specimen / Unknown 02/06/2025 10:04 AM EDT 02/06/2025 11:11 AM EDT us Tammi Sorenson MD LAB BLOOD ORDERAB LES Final Result [facility] [address] [place] [phone] * (ABNORMAL) Lipid Panel, Standard (02/06/2025 10:04 AM EDT) Triglycerides 176(H) <150 mg/dL [facility] Comment:Desirable Triglyceri de: less than 150 mg/dLBorderline High Triglyceride 150-199 mg/dLHigh Triglyceride: 200-499 mg/dLVery High Triglyceride: greater than or equal to 5OO mg/dL Cholesterol 251(H) <200 mg/dL [facility] Comment:Desirable Cholestero l: less than 200 mg/dLBorderline High Cholesterol: 200-239 mg/dLHigh Cholesterol: greater than 239 mg/dL LDL Cholesterol Calculated 152(H) <100 mg/dL [facility] Comment:Desirable LDL: less than 100 mg/dLNear Optimal/Above Optimal LDL: 110- 129 mg/dLBorderline High LDL: 130-159 mg/dLHigh LDL: 160-189 mg/dLVery High LDL: greater than or equal to 190 mg/dL HDL Cholesterol 64 >40 mg/dL [facility] Comment:Desirable HDL: great er than 40 mg/dL Note: This HDL assay may give artificially low results in patients with liver disease. Blood Venous blood specimen / Unknown 02/06/2025 10:04 AM EDT 02/06/2025 11:11 AM EDT us Tammi Sorenson MD LAB BLOOD ORDERAB LES Final Result [facility] [address] [place] [address] [phone] * (ABNORMAL) Comprehensive Metabolic Panel (02/06/2025 10:04 AM EDT) Sodium 141 135 - 145 mmol/L [facility] Potassium 4.4 3.3 - 5.1 mmol/L [facility] Chloride 104 96 - 108 mmol/L [facility] Carbon Dioxide 30(H) 22 - 29 mmol/L [facility] Anion Gap 11(L) 12 - 20 [facility] Urea Nitrogen (BUN) 13 9 - 16 mg/dL [facility] Creatinine, Serum 0.73 0.5 - 1.4 mg/dL [facility] Estimated Glomerular Filt Rate >60 [facility] Comment:Chronic Kidney Disea se: Estimated GFR < 60 mL/min/[id number] Kidney Disease: Estimated GFR < 15 mL/min/1.73m2 Glucose 92 60 - 115 mg/dL [facility] Calcium 9.5 8.4 - 10.2 mg/dL [facility] Bilirubin, Total 0.3 0.0 - 1.0 mg/dL [facility] Aspartate Amino Transferase 19 5 - 31 U/L [facility] Alanine Aminotransferase 13 0 - 31 U/L [facility] Total Protein 8.2(H) 6.5 - 8.0 g/dL [facility] Albumin Level 4.4 3.5 - 5.0 g/dL [facility] Alkaline Phosphatase 64 39 - 117 U/L [facility] Blood Venous blood specimen / Unknown 02/06/2025 10:04 AM EDT 02/06/2025 11:11 AM EDT us Tammi Sorenson MD LAB BLOOD ORDERAB LES Final Result [facility] [address] [place] [address] [phone] * MR Brain w/o Contrast (01/12/2025 8:46 AM EDT) Anatomical Region Laterality Modality Brain Magnetic Resonan ce 01/12/2025 8:46 AM EDT Narrative 01/12/2025 8:48 AM EDT [place] [address] Magnetic Resonance Report Signed Patient: Karen Og MR#: [id number] 4 : 1970 Acct:[id number] Age/Sex: 54 / F ADM Date: 01/11/25 Loc: HO.MRI Attending Dr: Tammi Sorenson MD Ordering Physician: Tammi Burgess MD Date of Service: 01/11/25 Procedure(s): MR head/brain wo con Accession Number(s): [id number] cc: Tammi Burgess MD CLINICAL HISTORY: pt with memory loss, dysmetria, bl hand tremor MR Brain without gadolinium Comparison: None provided Findings: No restricted diffusion. No intra-axial mass or hemorrhage. No midline shift. No hydrocephalus. Vascular flow voids are intact. The orbits are normal. The sinuses and mastoid air cells are clear. No focal bone lesion. IMPRESSION: No acute findings. This document has been electronically signed by: Araceli Ruffin MD on 01/12/2025 08:46:50 Dictated By: Araceli Ruffin MD Signed By: <Electronically signed by Araceli Ruffin MD in OV> 01/12/25 0848 DD/ 5 TD/TT: 01/12/25845 Website Developer: Procedure Note Donotuseinterpreter, Image - 01/12/[address] [address] Magnetic Resonance Report Signed Patient: Karen Og MMR#: [id number] 4 : 1970Acct:[id number] Age/Sex: 54 / FADM Date: 01/11/25 Loc: HO.MRI Attending Dr: Tammi Sorenson MD Ordering Physician: Tammi Burgess MD Date of Service: 01/11/25 Procedure(s): MR head/brain wo con Accession Number(s): [id number] cc: Tammi Burgess MD CLINICAL HISTORY: pt with memory loss, dysmetria, bl hand tremor MR Brain without gadolinium Comparison: None provided Findings: No restricted diffusion. No intra-axial mass or hemorrhage. No midline shift. No hydrocephalus. Vascular flow voids are intact. The orbits are normal. The sinuses and mastoid air cells are clear. No focal bone lesion. IMPRESSION: No acute findings. This document has been electronically signed by: Araceli Ruffin MD on 01/12/2025 08:46:50 Dictated By: Araceli Ruffin MD Signed By: <Electronically signed by Araceli Ruffin MD in OV> 01/12/2548 DD/ TD/TT: 01/12/25 0846 Website Developer: Tammi Sorenson MD IMG MRI PROCEDURE S Final Result * Hm Colonoscopy (05/28/2022 1:55 PM EDT) Historical Provider HEALTH MAINTENANCE Final Result * HPV E6/E7 RFLX JACOB 16 18/45 (08/15/2021 1:40 PM EST) HPV 16 RNA TNP [facility] HPV 18/45 RNA [facility]NP [facility] HPV E6 E7 ADD [facility]NP [facility] HPV mRNA E6/E7 rflx Not Detected Not Detected [facility] Comment: Methodology: Chiller Technician-Mediated Amplification This assay detects E6/E7 viral messenger RNA (mRNA) from 14 high-risk HPV types (16,18,31,33,35,39,45,51,52,56,58,59,66,68). The analytical performance characteristics of this assay have been determined by [employer]. The modifications have not been cleared or approved by the FDA. This assay has been validated pursuant to the CLIA regulations and is used for clinical purposes. For additional information, please refer to http://education.nodila.[employer]/faq/MVH724z7 (This link if provided for information/ educational purposes only.) THIS TEST WAS PERFORMED AT: [facility] [address] [address] AMY BLANCAS MD 08/15/2021 1:40 PM EST Historical Provider MD HISTORICAL/NON ORDERABLE LABS Final Result Performing Organization Address [facility] de Phone Number [facility] [address] * THINPREP PAP (01/11/2021 11:51 AM EDT) Clinical Information: None given [facility] COMMENT SEE COMMENT [facility] Comment: EXPLANATORY NOTE: The Pap is a screening test for cervical cancer. It is not a diagnostic test and is subject to false negative and false positive results. It is most reliable when a satisfactory sample, regularly obtained, is submitted with relevant clinical findings and history, and when the Pap result is evaluated along with historic and current clinical information. Logging Equipment Mechanic : SEE COMMENT [facility] Comment: GSG, CT(ASCP) CT screening location: [address] [address] Interpretation/R esult: Negative for intraepithelial lesion or [...] PATHOLOGY ORDERABLES Final Result Performing Organization Address [facility] Co de Phone Number [facility] [address] from Last 3 Months or Most Recently Relevant to Health Maintenance Insurance [place] [facility] MEDICAID STAND ADULT DENTAL - HSN FULL (MEDICAID) Care Teams Offset Printer Relationship Specialty Start Date End Date Tammi Burgess MD [address] [place] [address] PCP - General Internal Medicine 04/13/23
--- OUTSIDE RECORDS SUMMARY | 2025-04-12 11:46 | XMS_ITS | Encounter Summary ---
Author Organization [employer] [facility] Address [address] [facility] 7t [place] [address] Care Team Providers Care Cotton Picker Name Role Phone Tammi Burgess MD Primary Care Pro vider Encounter Details Date Type Department Care Team (Latest Contact Info) Description 04/11/2025 Travel Social History Tobacco Use Types Packs/Day Years [...] documented as of this encounter Care Teams Cotton Picker Relationship Specialty Start Date End Date Tammi Burgess MD [address] [place] [address] PCP - General Internal Medicine 04/13/23 documented as of this encounter
--- OUTSIDE RECORDS SUMMARY | 2025-04-12 11:46 | XMS_ITS | Encounter Summary ---
Author Organization [employer] Address 75 [facility] 7t [place] [address] Care Team Providers Care Primary Care Coordinator Name Role Phone Tammi Burgess MD Primary Care Pro vider Reason for Visit * Reason Comments Med Refill Encounter Details Date Type Department Care Team (Late st Contact Info) Description 08/11/2024 Refill [facility] [address] [place] [address] Tammi Burgess MD [address] [place], [place] [phone] Social History Tobacco Use Types Packs/Day Years [...] documented as of this encounter Care Teams Primary Care Coordinator Relationship Specialty Start Date End Date Tammi Burgess MD [address] [place] [address] PCP - General Internal Medicine 04/13/23 documented as of this encounter
--- OUTSIDE RECORDS SUMMARY | 2025-04-12 11:46 | XMS_ITS | Encounter Summary ---
Author Organization [employer] Address 75 [facility] 7t [place] [address] Care Team Providers Care Exercise Scientist Name Role Phone Tammi Burgess MD Primary Care Pro vider Encounter Details Date Type Department Care Team (Late st Contact Info) Description 08/06/2023 Orders Only [facility] [address] [place], [place] [phone] Judy Prieto MD [address] [place], [place] [phone] Acute pain of right knee (Primary Dx); [...] documented as of this encounter Care Teams Exercise Scientist Relationship Specialty Start Date End Date Tammi Burgess MD [address] [place] [address] PCP - General Internal Medicine 04/13/23 documented as of this encounter
--- OUTSIDE RECORDS SUMMARY | 2025-04-12 11:46 | XMS_ITS | Encounter Summary ---
Author Organization [facility] Address [address] [facility] [address] [place] [address] Phone Care Team Providers Care Satellite Dish Technician Name Role Phone Popeye Vera INK PRINTER Primary Care Provider [phone] Encounter Details Date Type Department Care Team (Late st Contact Info) Description 12/17/2018 Ancillary Orders [facility] [address] [place] [address] [place] [address] Fab Berry DO [address] [place] [address] Palpitations Social History Tobacco Use Types Packs/Day [...] Palpitations documented in this encounter Care Teams Satellite Dish Technician Relationship Specialty Start Date End Date Popeye Vera NP [address] [place] [address] PCP - General 12/16/18 documented as of this encounter Additional Source Comments The information contained in this document represents components of the legal health record. It is not the complete legal health record.[facility]
--- OUTSIDE RECORDS SUMMARY | 2025-04-12 11:46 | XMS_ITS | Encounter Summary ---
Author Organization [employer] Address [address] [place] [address] 7 [place] [address] Care Team Providers Care Mounter Automatic Name Role Phone Tammi Burgess MD Primary Care Pro vider Reason for Referral * Consultation (Routine) - Closed Specialty Diagnoses / Procedures Referred By Contac t Referred To Contact Orthopaedic Surgery Diagnoses Knee pain, unspecified chronicity, unspecified laterality Tammi Burgess MD [address] [place] [address] Phone: tel: fax: [facility] [address] [place] [address] Phone: tel: Referral ID Status Reason Start Date Expiration Date V isits Requested Visits Authorized [id number] Closed Specialty Services Required 11/24/2024 11/24/2025 6 6 Encounter Details Date Type Department Care Team (Late st Contact Info) Description 12/07/2024 Orders Only [facility] [address] [place] [phone] Tammi Burgess MD [address] [place], [place] [phone] Knee pain, unspecified chronicity, unspecified laterality (Primary Dx) Social History Tobacco Use Types [...] as of this encounter Plan of Treatment Scheduled Referrals Name Type Priority Associated Diagnoses Orde r Schedule Referral to Orthopaedic Surgery Outpatient Referral Routine Knee pain, unspecified chronicity, unspecified laterality Expected: 12/07/2024 (Approximate), Expires: 12/07/2025 documented as of this encounter Visit Diagnoses Diagnosis Knee pain, unspecified chronicity, unspecified laterality- Primary documented in this encounter Additional Health Concerns Assessment Noted Time PHQ-9 Depression Total Score: 5 10/20/19 24 10:39 AM EDT documented as of this encounter Care Teams Mounter Automatic Relationship Specialty Start Date End Date Tammi Burgess MD [address] [place] [address] PCP - General Internal Medicine 04/13/23 documented as of this encounter
--- OUTSIDE RECORDS SUMMARY | 2025-04-12 11:46 | XMS_ITS | Clinical Summary ---
Author Organization [facility] Address [address] [place] [address] [place] [address] Phone Care Team Providers Care Automatic Nailing Machine Feeder Name Role Phone Popeye Vera NP Primary Care Provider [phone] Social History Tobacco Use Types Packs/Day Years Used Date Smoking Tobacco: Never Assessed Education Answer Date Recorded Are you interested in more education? Not on asael e 11/21/2022 Are you concerned about learning? Not on file 11/21/2022 No 11/21/2022 No 11/21/2022 Digital Access Answer Date Recorded No 12/23/2022 No 12/23/2022 No 12/23/2022 Reliable internet access at home? Not on file 12/23/2022 Device with a working camera? Not on file Comments Unknown Sex and Gender Information Value Date Recorded Sex Assigned at Not on file Legal Sex Female 2:58 PM EDT Gender Identity Not on file Sexual Orientation Not on file Plan of Treatment Not on file Medical Devices Not on file Insurance [facility] NON NSPG PCP [employer] NON NSPG PCP [employer]CARE [employer] NON NSPG PCP SILVER [employer] CONNECTORCARE [employer] NON NSPG PCP SILVER [employer]ITY CONNECTORCARE [employer] NON NSPG PCP SILVER CLARITY CONNECTORCARE [facility] Address: [address] [place] [address] WELLSENSE NON NSPG PCP SILVER CLARITY CONNECTORCARE [employer] NON NSPG PCP SILVER CLARITY CONNECTORCARE [employer] NON NSPG PCP SILVER CLARITY CONNECTORCARE [employer] NON NSPG PCP SILVER CLARITY CONNECTORCARE [place] [phone] Care Teams Automatic Nailing Machine Feeder Relationship Specialty Start Date End Date Popeye Vera NP [address] [place] [address] PCP - General 12/16/18 Additional Source Comments The information contained in this document represents components of the legal health record. It is not the complete legal health record.[facility]
--- OUTSIDE RECORDS SUMMARY | 2025-04-12 11:46 | XMS_ITS | Encounter Summary ---
Author Organization [employer] Address 75 [facility] 7t [place] [address] Care Team Providers Care Teacher Education Instructor Name Role Phone Tammi Burgess MD Primary Care Pro vider Encounter Details Date Type Department Care Team (Latest Contact Info) Description 03/09/2025 Results Follow-Up [facility] [address] [place] [address] Tammi Burgess MD [address] [place] [address] BI Mammogram Screening Tomosynthesis Bilateral Social History Tobacco Use Types Packs/Day Years [...] Miscellaneous Notes * Result Encounter Note - Tammi Sorenson MD - 03/09/2025 9:01 AM EDT Please inform pt of normal mammogram result thanks documented in this encounter Plan of Treatment Not on file documented as of this encounter Visit Diagnoses Not on filedocumented in this encounter Additional Health Concerns Assessment Noted Time PHQ-9 Depression Total Score: 8 12/27/19 25 3:12 PM EDT documented as of this encounter Care Teams Teacher Education Instructor Relationship Specialty Start Date End Date Tammi Burgess MD [address] [place] [address] PCP - General Internal Medicine 04/13/23 documented as of this encounter
--- OUTSIDE RECORDS SUMMARY | 2025-04-12 11:46 | XMS_ITS | Encounter Summary ---
Author Organization [employer] Address [address] [place] [address] 7 [place] [address] Care Team Providers Care Data Communications Analyst Name Role Phone Charito Lawrence Primary Care Provider Tammi Downs MD Primary Care Pro vider Encounter Details Date Type Department Care Team (Late st Contact Info) Description 03/31/2023 Abstract [facility] [address] [place] [address] Jamey Hussein, DMD [address] [place] [address] Social History Tobacco Use Types Packs/Day Years [...] on filedocumented in this encounter Care Teams Data Communications Analyst Relationship Specialty Start Date End Date Charito Lawrence FNP PCP - General Family Medicine 05/17/21 04/12/23 Tammi Burgess MD [address] [place] [address] PCP - General Internal Medicine 04/13/23 documented as of this encounter
--- OUTSIDE RECORDS SUMMARY | 2025-04-12 11:46 | XMS_ITS | Encounter Summary ---
Author Organization [employer] Address 75 [facility] 7t [place] [address] Care Team Providers Care Filament Wound Parts Fabricator Name Role Phone Tammi Burgess MD Primary Care Pro vider Encounter Details Date Type Department Care Team ([facility] st Contact Info) Description 07/18/[address] [facility] [address] [place] [address] ProviderChata MD Social History Tobacco Use Types [...] 1:55 PM EST Pelvic US ordered by TORCH SOLDERER. Patient to fu results with TORCH SOLDERER (Dr Espinoza). documented in this encounter Plan of Treatment Not on file documented as of this encounter Procedures Procedure [...] PM EST Narrative 08/09/2024 10:56 AM EST [address] [address] Magnetic Resonance Report Signed Patient: Karen Og MR#: [id number] 4 : 1970 Acct:[id number] Age/Sex: 54 / F ADM Date: 08/07/24 Loc: HO.MRI Attending Dr: Keyon Bowles MD Ordering Physician: Keyon Bowles MD Date of Service: 08/07/24 Procedure(s): MR knee LT wo con Accession Number(s): [id number] cc: Tammi Burgess MD; Keyon Bowles MD [...] 1053 DD/ 1458 TD/TT: 08/07/24 1507 Industrial Custodian: Procedure Note Donotuseinterpreter, Image - 08/09/[address] [address] Magnetic Resonance Report Signed Patient: Karen Og [facility]#: [id number] 4 : 1970Acct:[id number] Age/Sex: 54 / FADM Date: 08/07/24 Loc: HO.MRI Attending Dr: Keyon Bowles MD Ordering Physician: Keyon Bowles MD Date of Service: 08/07/24 Procedure(s): MR knee LT wo con Accession Number(s): [id number] cc: Tammi Burgess MD; Keyon Bowles MD [...] by: Gucci Novak MD 08/09/2024 10:53 AM [facility] Dictated By: Gucci Novak MD Signed By: <Electronically signed by Gucci Novak MD in OV> 08/09/24 1053 DD/ 1458 TD/TT: 08/07/24 7717 Industrial Custodian: us [facility] External Provider IMG MRI PROCEDURES Final Result * US Pelvis Transvaginal (08/02/2024 4:26 PM EST) Anatomical Region Laterality Modality Pelvis Ultrasound 08/02/2024 4:26 PM EST Narrative 08/02/2024 4:27 PM EST [address] [address] Ultrasound Report Signed Patient: Karen Og MR#: [id number] 4 : 1970 Acct:[id number] Age/Sex: 54 / F ADM Date: 08/01/24 Loc: HO.US Attending Dr: Juan Espinoza MD Ordering Physician: Juan Espinoza MD Date of Service: 08/01/24 Procedure(s): US pelvic and transvaginal Accession Number(s): [id number] cc: Tammi Burgess MD; Juan Espinoza MD [...] in OV> 08/02/241625 DD/ 25 TD/TT: 08/02/241625 Industrial Custodian: Procedure Note Donotuseinterpreter, Image - 08/02/2024 [place] [address] Ultrasound Report Signed Patient: Karen Og MMR#: [id number] 4 : 1970Acct:[id number] Age/Sex: 54 / FADM Date: 08/01/24 Loc: HO.US Attending Dr: Juan Espinoza MD Ordering Physician: Juan Espinoza MD Date of Service: 08/01/24 Procedure(s): US pelvic and transvaginal Accession Number(s): [id number] cc: Tammi Burgess MD; Juan Espinoza MD [...] OV> 08/02/24 1626 DD/ 25 TD/TT: 08/02/241625 Industrial Custodian: [facility] External Provider IMG US PROCEDURES Final Result * Hm Colonoscopy (05/28/2022 1:55 PM EDT) Historical Provider HEALTH MAINTENANCE Final Result documented in this encounter Visit Diagnoses Not on filedocumented in this encounter Additional Health Concerns Assessment Noted Time PHQ-9 Depression Total Score: 5 10/20/19 24 10:39 AM EDT documented as of this encounter Care Teams Filament Wound Parts Fabricator Relationship Specialty Start Date End Date Tammi Burgess MD [address] [place] [address] PCP - General Internal Medicine 04/13/23 documented as of this encounter
[2025-04-12 11:58] LABS: Alanine Aminotransferase 11 U/L (0-31); Albumin Level 3.8 g/dL (3.5-5.0); Alkaline Phosphatase 66 U/L (39-117); Anion Gap 12 (12-20); Aspartate Amino Transferase 23 U/L (5-31); Blood Urea Nitrogen 15 mg/dL (9-16); Calcium 9.2 mg/dL (8.4-10.2); Carbon Dioxide 30 mmol/L (22-29); Chloride 104 mmol/L (96-108); Estimated Glomerular Filt Rate > 60; Potassium 4.5 mmol/L (3.3-5.1); Sodium 141 mmol/L (135-145); Total Protein 6.9 g/dL (6.5-8.0)
== END 2025-04-12 09:54 | disposition home or self-care (01) ==
LOC: HO.HHCL 09:53
PROVIDERS: PCP Student in an Organized Health Care Education/Training Program; Visit Provider Family Medicine
DX: R10.13 Epigastric pain (principal)
CPT/HCPCS: 36415; 80053; 85025

== ENCOUNTER 2025-04-13 16:47 | Outpatient (REF) | payer MEDICAID, SELFPAY ==
--- OUTSIDE RECORDS SUMMARY | 2025-04-11 19:20 | XMS_ITS | Encounter Summary ---
Author Organization [employer] Address [address] [facility] 7t [place] [address] Care Team Providers Care Software Development Intern Name Role Phone Tammi Burgess MD Primary Care Pro vider Reason for Referral * Consultation (Routine) - Authorized Specialty Diagnoses / Procedures Referred By Contlizabeth t Referred To Contact Gastroenterology Diagnoses Epigastric pain Shravan Dunne MD [address] [place] [phone] Phone: tel: fax: [facility] Gastroenterology [address] [place] [address] Phone: tel: fax: Referral ID Status Reason Start Date Expiration Date Visits Requested Visits Authorized [id number] Authorized Specialty Services Required 04/12/2025 04/12/2026 6 6 Encounter Details Date Type Department Care Team (Late st Contact Info) Description 04/11/2025 7:20 PM EDT Office Visit [facility] [address] [place] [address] [phone] Shravan Dunne MD [address] [place] [address] [phone] Epigastric pain (Primary Dx) Social History Tobacco Use Types [...] housing situation today? I have robert sears 12/16/[address] you li [...] Sign Reading Time Taken Comments Blood Pressure 128/86 04/11/2025 6:06 PM EDT Pulse 83 04/11/2025 6:06 PM EDT Temperature 37 C (98.6 F) 04/11/2025 6:06 PM EDT Respiratory Rate 17 04/11/2025 6:06 PM EDT Oxygen Saturation 96% 04/11/2025 6:06 PM EDT Inhaled Oxygen Concentration - - Weight 74.8 kg (164 lb 12.8 oz) 04/11/2025 6:06 PM EDT Height - - Body Mass Index 29.66 12/26/2024 2:15 PM EDT documented in this encounter Progress Notes * Shravan Dunne MD - 04/11/2025 7:20 PM EDT Subjective History was provided by the patient. Karen Og is a 54 y.o. female who presents for evaluation of 10-day duration of epigastric pain, waxing and waning. No significant N/V/D. Denies F/C. Denies reflux symptoms. No recent travel. Denies any unusual food consumption prior to the onset of her symptoms. Admits to occasional Advil use.Documented history of gastritis. Denies BRBPR or melena. Previously was taking Famotidine, but stopped when refills ran out. Just purchased OTC Omeprazole yesterday. Denies any new medication changes. Last Wegovy use was in 06/2024. Underlying seizure disorder. Has been on Depakote for many years. On Clonazepam prescribed by Neurology. Colonoscopy done in 05/2022. Biopsy showed fragments of poorly preserved acellular material; no colonic epithelium identified Objective Vitals: 04/11/25 1806 BP: 128/86 BP Location: Left arm Patient Position: Sitting BP Cuff Size: Adult Pulse: 83 Resp: 17 Temp: 98.6 ??F (37 ??C) TempSrc: Oral SpO2: 96% Weight: 164 lb 12.8 oz (74.8 kg) Physical Exam Vitals reviewed. Constitutional: General: She is not in acute distress. Appearance: Normal appearance. She is normal weight. She is not ill-appearing, toxic-appearing or diaphoretic. HENT: Head: Normocephalic and atraumatic. Right Ear: External ear normal. Left Ear: External ear normal. Nose: Nose normal. Mouth/Throat: Mouth: Mucous membranes are moist. Pharynx: Oropharynx is clear. Eyes: Extraocular Movements: Extraocular movements intact. Conjunctiva/sclera: Conjunctivae normal. Cardiovascular: Rate and Rhythm: Normal rate and regular rhythm. Heart sounds: Normal heart sounds. Pulmonary: Effort: Pulmonary effort is normal. No respiratory distress. Breath sounds: Normal breath sounds. No wheezing, rhonchi or rales. Chest: Chest wall: No tenderness. Abdominal: General: Abdomen is flat. There is no distension. Palpations: Abdomen is soft. Tenderness: There is abdominal tenderness (epigastric tenderness). There is no right CVA tenderness, left CVA tenderness, guarding or rebound. Musculoskeletal: General: Normal range of motion. Cervical back: Neck supple. Skin: General: Skin is warm and dry. Neurological: General: No focal deficit present. Mental Status: She is alert and oriented to person, place, and time. Psychiatric: Mood and Affect: Mood normal. Behavior: Behavior normal. Diagnoses and all orders for this visit: Epigastric pain (Primary) - omeprazole OTC (PriLOSEC OTC) 20 MG EC tablet; Take 1 tab po BID for 14 days. - Helicobacter pylori Antigen, EIA, Stool; Future - Leukocytes Stool Qualitative; Future - Stool - Gastrointestinal panel; Future - CBC auto differential; Future - Comprehensive Metabolic Panel; Future - Referral to Gastroenterology; Future Patient [facility] with epigastric pain No clinical evidence of acute abdomen Denies any GI bleeding symptoms Previously took H2 maximino, but stopped when refills ran out Recommend PPI Tx with Omeprazole 20mg BID for 2 weeks Also recommended Mylanta or Maalox Check Stool WBC and Stool GI Panel Check CBC/CMP and H. Pylori Stool AG Referral to GI for further evaluation and consideration for EGD Advised to contact the clinic if no improvement of symptoms Indications for UC/ER use reviewed documented in this encounter Plan of Treatment Upcoming Encounters Date Type Department Care Team (Late st Contact Info) Description 06/29/2025 9:30 AM EST Office Visit [facility] [address] [place] [phone] Tammi Burgess MD [address] [place] [address] Scheduled Orders Name Type Priority Associated Diagnoses Orde r Schedule Helicobacter pylori Antigen, EIA, Stool Lab Routine Epigastric pain Expected: 04/11/2025, Expires: 04/11/2026 Leukocytes Stool Qualitative Lab Routine Epigastric pain Expected: 04/11/2025, Expires: 04/11/2026 Stool - Gastrointestinal panel Microbiology Routine Epigastric pain Expected: 04/11/2025 (Approximate), Expires: 04/11/2026 Scheduled Referrals Name Type Priority Associated Diagnoses Order Schedule Referral to Gastroenterology Outpatient Referral Routine Epigastric pain Expected: 04/12/2025 (Approximate), Expires: 04/12/2026 documented as of this encounter Procedures Procedure Name Priority Date/Time Associated Diagnosis Comments CBC WITH AUTO DIFFERENTIAL Routine 04/12/2025 10:09 AM EDT Epigastric pain COMPREHENSIVE METABOLIC PANEL Routine 04/12/2025 10:09 AM EDT Epigastric pain documented in this encounter Results * (ABNORMAL) Comprehensive Metabolic Panel (04/12/2025 10:09 AM EDT) Sodium 141 135 - 145 mmol/L [facility] Potassium 4.5 3.3 - 5.1 mmol/L [facility] Chloride 104 96 - 108 mmol/L [facility] Carbon Dioxide 30(H) 22 - 29 mmol/L [facility] Anion Gap 12 12 - 20 [facility] Urea Nitrogen (BUN) 15 9 - 16 mg/dL [facility] Creatinine, Serum 0.69 0.5 - 1.4 mg/dL [facility] Estimated Glomerular Filt Rate >60 [facility] Comment:Chronic Kidney Disea se: Estimated GFR < 60 mL/min/[id number] Kidney Disease: Estimated GFR < 15 mL/min/1.73m2 Glucose 93 60 - 115 mg/dL [facility] Calcium 9.2 8.4 - 10.2 mg/dL [facility] Bilirubin, Total 0.3 0.0 - 1.0 mg/dL [facility] Aspartate Amino Transferase 23 5 - 31 U/L [facility] Alanine Aminotransferase 11 0 - 31 U/L [facility] Total Protein 6.9 6.5 - 8.0 g/dL [facility] Albumin Level 3.8 3.5 - 5.0 g/dL [facility] Alkaline Phosphatase 66 39 - 117 U/L [facility] Blood Venous blood specimen / Unknown 04/12/2025 10:09 AM EDT 04/12/2025 11:14 AM EDT us Shravan Dunne MD LAB BLOOD ORDERABLES Final Resul t [facility] [address] [place] [phone] * (ABNORMAL) CBC auto differential (04/12/2025 10:09 AM EDT) White Blood Count 10.4 4.8 - 10.8 X10*3/uL [facility] Red Blood Count 4.18(L) 4.20 - 5.50 X10*6/uL [facility] Hemoglobin 12.8 12.0 - 16.0 g/dl [facility] Hematocrit 40.0 37.0 - 47.0 % [facility] Mean Corpuscular Volume 95.7 80.0 - 98.0 fL [facility] Mean Corpuscular Hemoglobin 30.6 27.0 - 33.0 pg [facility] Mean Corpuscular HGB Conc 32.0 31.0 - 35.0 g/dl [facility] Red Cell Distribution Width 14.2 11.0 - 16.0 % [facility] Platelet Count 164 160 - 400 X10*3/uL [facility] Mean Platelet Volume 10.1 9.4 - 12.3 fL [facility] Neutrophils Percent Auto 36.0(L) 45 - 73 % [facility] Imm Gran Pct Auto 1.3(H) 0.0 - 0.4 % [facility] Lymphocytes Percent Auto 20.1 20 - 40 % [facility] Monocytes Percent Auto 7.0 2 - 11 % [facility] Eosinophils Percent Auto 34.7(H) 0 - 4 % [facility] Basophils Percent Auto 0.9 0 - 2 % [facility] NRBC Pct Auto 0.0 0.0 - 0.2 /100WBC [facility] Neutrophils Absolute Auto 3.8 2.0 - 8.3 x10*3/uL [facility] Imm Gran Abs Auto 0.14(H) 0.00 - 0.03 X10*3/uL [facility] Lymphocytes Absolute Auto 2.1 1.2 - 4.9 X10*3/uL [facility] Monocytes Absolute Auto 0.7 0.1 - 1.2 X10*3/uL [facility] Eosinophils Absolute Auto 3.6(H) 0.0 - 0.4 X10*3/uL [facility] Basophils Absolute Auto 0.1 0.0 - 0.2 X10*3/uL [facility] NRBC Abs Auto 0.000 0.0 - 0.012 X10*3/uL [facility] Blood Venous blood specimen / Unknown 04/12/2025 10:09 AM EDT 04/12/2025 11:14 AM EDT us Shravan Dunne MD LAB BLOOD ORDERABLES Edited Resu lt - Final [facility] [address] [place] [phone] documented in this encounter Visit Diagnoses Diagnosis Epigastric pain- Primary Abdominal pain, epigastric documented in this encounter Additional Health Concerns Assessment Noted Time PHQ-9 Depression Total Score: 8 12/27/19 25 3:12 PM EDT documented as of this encounter Care Teams Software Development Intern Relationship Specialty Start Date End Date Tammi Burgess MD [address] [place] [phone] PCP - General Internal Medicine 04/13/23 documented as of this encounter
--- OUTSIDE RECORDS SUMMARY | 2025-04-13 17:25 | XMS_ITS | Encounter Summary ---
Author Organization [employer] Address 75 [facility] 7t [place] [address] Care Team Providers Care Supply And Distribution Manager Name Role Phone Tammi Burgess MD [...] Description 06/29/2025 9:30 AM EST Office Visit [facility] [address] [place] [phone] Tammi Burgess MD [address] [place] [address] documented as of this encounter Visit Diagnoses Not on filedocumented in this encounter Additional Health Concerns Assessment Noted Time PHQ-9 Depression Total Score: 8 12/27/19 25 3:12 PM EDT documented as of this encounter Care Teams Supply And Distribution Manager Relationship Specialty Start Date End Date Tammi Burgess MD [address] [place] [address] [phone] PCP - General Internal Medicine 04/13/23 documented as of this encounter
--- OUTSIDE RECORDS SUMMARY | 2025-04-13 17:25 | XMS_ITS | Encounter Summary ---
Author Organization [employer] Address [address] [facility] [address] [place] [address] Care Team Providers Care Report Checker Name Role Phone Tammi Burgess MD Primary Care Pro vider Encounter Details Date Type Department Care Team ([facility] st Contact Info) Description 07/18/2024 Orders Only [facility] [address] [place] [address] ProviderChata MD Social History Tobacco Use Types [...] 1:55 PM EST Pelvic US ordered by DISPATCH MACHINE RUNNER. Patient to fu results with DISPATCH MACHINE RUNNER (Dr Espinoza). documented in this encounter Plan of Treatment Upcoming Encounters Date Type Department Care Team (Late st Contact Info) Description 06/29/2025 9:30 AM EST Office Visit [facility] [address] [place] [phone] Tammi Burgess MD [address] [place] [address] documented as of this encounter Procedures Procedure [...] PM EST Narrative 08/09/2024 10:56 AM EST [address] [address] Magnetic Resonance Report Signed Patient: Karen Og MR#: [id number] [birth year] : 1970 Acct:[id number] Age/Sex: 54 / F ADM Date: 08/07/24 Loc: HO.MRI Attending Dr: Keyon Bowles MD Ordering Physician: Keyon Bowles MD Date of Service: 08/07/24 Procedure(s): MR knee LT wo con Accession Number(s): [id number] cc: Tammi Burgess MD; Keyon Bowles MD [...] 08/09/24 1053 DD/ 1458 TD/TT: 08/07/24 1507 Technology Applications Engineer: Procedure Note Donotuseinterpreter, Image - 08/09/[address] [address] Magnetic Resonance Report Signed Patient: Karen Og MMR#: [id number] 4 : 1970Acct:[id number] Age/Sex: 54 / FADM Date: 08/07/24 Loc: HO.MRI Attending Dr: Keyon Bowles MD Ordering Physician: Keyon Bowles MD Date of Service: 08/07/24 Procedure(s): MR knee LT wo con Accession Number(s): [id number] cc: Tammi Burgess MD; Keyon Bowles MD [...] 08/09/24 1053 DD/ 1458 TD/TT: 08/07/24 1507 Technology Applications Engineer: us [facility] External Provider IMG MRI PROCEDURES Final Result * US Pelvis Transvaginal (08/02/2024 4:26 PM EST) Anatomical Region Laterality Modality Pelvis Ultrasound 08/02/2024 4:26 PM EST Narrative 08/02/2024 4:27 PM EST [place] [address] Ultrasound Report Signed Patient: Karen Og MR#: [id number] [birth year] : 1970 Acct:[id number] Age/Sex: 54 / F ADM Date: 08/01/24 Loc: .US Attending Dr: Juan Espinoza MD Ordering Physician: Juan Espinoza MD Date of Service: 08/01/24 Procedure(s): US pelvic and transvaginal Accession Number(s): [id number] cc: Tammi Burgess MD; Juan Espinoza MD [...] OV> 08/02/24 1626 DD/ 1626 TD/TT: 08/02/24 162 Technology Applications Engineer: Procedure Note Donotuseinterpreter, Image - 08/02/2024 [place] [address] Ultrasound Report Signed Patient: Karen Og MMR#: [id number] 4 : 1970Acct:[id number] Age/Sex: 54 / FADM Date: 08/01/24 Loc: HO.US Attending Dr: Juan Espinoza MD Ordering Physician: Juan Espinoza MD Date of Service: 08/01/24 Procedure(s): US pelvic and transvaginal Accession Number(s): [id number] cc: Tammi Burgess MD; Juan Espinoza MD [...] Yeni Hutchison MD in OV> 08/02/241625 DD/ 1626 TD/TT: 08/02/24 162 Technology Applications Engineer: [facility] External Provider IMG US PROCEDURES Final Result * Hm Colonoscopy (05/28/2022 1:55 PM EDT) Historical Provider HEALTH MAINTENANCE Final Result documented in this encounter Visit Diagnoses Not on filedocumented in this encounter Additional Health Concerns Assessment Noted Time PHQ-9 Depression Total Score: 5 10/20/19 24 10:39 AM EDT documented as of this encounter Care Teams Report Checker Relationship Specialty Start Date End Date Tammi Burgess MD [address] [place] [phone] PCP - General Internal Medicine 04/13/23 documented as of this encounter
--- OUTSIDE RECORDS SUMMARY | 2025-04-13 17:25 | XMS_ITS | Encounter Summary ---
Author Organization [employer] Address [address] [facility] 7[address] [place] [address] Care Team Providers Care Personal Injury Attorney Name Role Phone Tammi Burgess MD Primary Care Pro vider Reason for Visit * Reason Comments Med Refill Encounter Details Date Type Department Care Team (Late st Contact Info) Description 08/11/2024 Refill [facility] [address], [place] [phone] Tammi Brugess MD [address], [place] [phone] Social History Tobacco Use Types Packs/Day Years [...] Description 06/29/2025 9:30 AM EST Office Visit [facility] [address] [place] [phone] Tammi Burgess MD [address] [place] [phone] documented as of this encounter Visit Diagnoses Not on filedocumented in this encounter Additional Health Concerns Assessment Noted Time PHQ-9 Depression Total Score: 5 10/20/19 24 10:39 AM EDT documented as of this encounter Care Teams Personal Injury Attorney Relationship Specialty Start Date End Date Tammi Burgess MD [address] [place] [phone] PCP - General Internal Medicine 04/13/23 documented as of this encounter
--- OUTSIDE RECORDS SUMMARY | 2025-04-13 17:25 | XMS_ITS | Clinical Summary ---
Author Organization [facility] [employer] Address [address] [place] [address] 7[address] [place] [address] Care Team Providers Care Virtual Classroom Manager Name Role Phone Tammi Burgess MD [...] cancer: Never smoker Eye: 02/2023 [facility] at [facility] Dental: up to date Hernia [...] Encounters Date Type Department Care Team Description 04/12/2025 Orders Only [facility] [address] [place] [phone] Shravan Dunne MD 04/11/2025 7:20 PM EDT Office Visit [facility] [address] [place] [phone] Shravan Dunne MD Epigastric pain (Primary Dx) 04/11/2025 Travel 04/04/2025 Refill [facility] [address] [place], [place] [phone] Tammi Burgess MD 03/10/2025 Refill [facility] [address] [place] [address] Tammi Burgess MD Low back pain associated with a spinal disorder other than radiculopathy or spinal stenosis 03/10/[address] [address] Tammi Burgess MD Results 03/09/2025 Results Follow-Up [address] [address] Tammi Burgess MD BI Mammogram Screening Tomosynthesis Bilateral 03/02/2025 1:30 PM EDT Office Visit [address] [address] Tammi Burgess MD Hyperlipidemia, unspecified hyperlipidemia type (Primary Dx); Uterine leiomyoma, unspecified location; Health care maintenance; Mixed anxiety and depressive disorder; Fibromyositis; Tremor of both hands; Onychomycosis 03/02/2025 Travel 02/06/2025 9:30 AM EDT Clinical Support [facility] [address] [facility] [place] [address] Rashmi Horne, RN Memory loss 02/06/2025 Orders Only [facility] [address] [place] [place] [address] Tammi Burgess MD 02/06/2025 Travel 01/18/2025 3:15 PM EDT Office Visit [facility] [address] [place], [place] [phone] Jamey Hussein, JUDITH Full coverage crown needed for root canal-treated tooth (Primary Dx) 01/13/2025 Results Follow-Up [facility] [address] [facility] [place] [address] Tammi Burgess MD MR Brain w/o Contrast, [...] 12/26/2024 2:15 PM EDT Plan of Treatment Upcoming Encounters Date Type Department Care Team (Late st Contact Info) Description 06/29/2025 9:30 AM EST Office Visit [facility] [address] [place] [address] Tammi Burgess MD [address] [place] [address] Health Maintenance Due Date Last Done Comments CT Colonography 1970 FIT DNA/Cologuard 1970 FIT 1970 FOBT 1970 Sigmoidoscopy 1970 Pneumococcal Vaccine: 50+ Years (1 of 1 - PCV) 2020 Dental Oral Exam 09/18/2024 03/17/2024, , 07/28/2018 Dental X-Ray: Bitewings 12/15/2024 12/15/19 24, 02/19/2023, 07/28/2018 COVID-19 Vaccine ( season) 2025 10/29/2021, 11/02/2020 Influenza Vaccine (#1) [...] Procedure Name Priority Date/Time Associated Diagnosis Comments SLIDE REVIEW Routine 04/12/2025 10:09 AM EDT COMPREHENSIVE METABOLIC PANEL Routine 04/12/2025 10:09 AM EDT Epigastric pain CBC WITH AUTO DIFFERENTIAL Routine 04/12/2025 10:09 AM EDT Epigastric pain US PELVIS TRANSVAGINAL Routine 4:30 PM EDT [...] caries associated with failed or defective dental catholic Full coverage crown needed for root canal-treated [...] Recently Relevant to Health Maintenance Results * Slide Review (04/12/2025 10:09 AM EDT) Slide Review VERIFIED [facility] 04/12/2025 10:0 9 AM EDT 04/12/2025 11:14 AM EDT us Shravan Dunne MD LAB BLOOD ORDERABLES Final Resul t [facility] [address] [place] [phone] * (ABNORMAL) CBC auto differential (04/12/2025 10:09 AM EDT) White Blood Count 10.4 4.8 - 10.8 X10*3/uL [facility] Red Blood Count 4.18(L) 4.20 - 5.50 X10*6/uL [facility] Hemoglobin 12.8 12.0 - 16.0 g/dl [facility] Hematocrit 40.0 37.0 - 47.0 % [facility] Mean Corpuscular Volume 95.7 80.0 - 98.0 fL [facility] Mean Corpuscular Hemoglobin 30.6 27.0 - 33.0 pg [facility] Mean Corpuscular HGB Conc 32.0 31.0 - 35.0 g/dl [facility] Red Cell Distribution Width 14.2 11.0 - 16.0 % [facility] Platelet Count 164 160 - 400 X10*3/uL [facility] Mean Platelet Volume 10.1 9.4 - 12.3 fL [facility] Neutrophils Percent Auto 36.0(L) 45 - 73 % [facility] Imm Gran Pct Auto 1.3(H) 0.0 - 0.4 % [facility] Lymphocytes Percent Auto 20.1 20 - 40 % [facility] Monocytes Percent Auto 7.0 2 - 11 % [facility] Eosinophils Percent Auto 34.7(H) 0 - 4 % [facility] Basophils Percent Auto 0.9 0 - 2 % [facility] NRBC Pct Auto 0.0 0.0 - 0.2 /100WBC [facility] Neutrophils Absolute Auto 3.8 2.0 - 8.3 x10*3/uL [facility] Imm Gran Abs Auto 0.14(H) 0.00 - 0.03 X10*3/uL [facility] Lymphocytes Absolute Auto 2.1 1.2 - 4.9 X10*3/uL [facility] Monocytes Absolute Auto 0.7 0.1 - 1.2 X10*3/uL [facility] Eosinophils Absolute Auto 3.6(H) 0.0 - 0.4 X10*3/uL [facility] Basophils Absolute Auto 0.1 0.0 - 0.2 X10*3/uL [facility] NRBC Abs Auto 0.000 0.0 - 0.012 X10*3/uL [facility] Blood Venous blood specimen / Unknown 04/12/2025 10:09 AM EDT 04/12/2025 11:14 AM EDT us Shravan Dunne MD LAB BLOOD ORDERABLES Edited Resu lt - Final [facility] [address] [place] [address] [phone] * (ABNORMAL) Comprehensive Metabolic Panel (04/12/2025 10:09 AM EDT) Only the most recent of2 resultswithin the time period is included. Sodium 141 135 - 145 mmol/L [facility] Potassium 4.5 3.3 - 5.1 mmol/L [facility] Chloride 104 96 - 108 mmol/L [facility] Carbon Dioxide 30(H) 22 - 29 mmol/L [facility] Anion Gap 12 12 - 20 [facility] Urea Nitrogen (BUN) 15 9 - 16 mg/dL [facility] Creatinine, Serum 0.69 0.5 - 1.4 mg/dL [facility] Estimated Glomerular Filt Rate >60 [facility] Comment:Chronic Kidney Disea se: Estimated GFR < 60 mL/min/1.28l1Hrfdkb Kidney Disease: Estimated GFR < 15 mL/min/1.73m2 Glucose 93 60 - 115 mg/dL [facility] Calcium 9.2 8.4 - 10.2 mg/dL [facility] Bilirubin, Total 0.3 0.0 - 1.0 mg/dL [facility] Aspartate Amino Transferase 23 5 - 31 U/L [facility] Alanine Aminotransferase 11 0 - 31 U/L [facility] Total Protein 6.9 6.5 - 8.0 g/dL [facility] Albumin Level 3.8 3.5 - 5.0 g/dL [facility] Alkaline Phosphatase 66 39 - 117 U/L [facility] Blood Venous blood specimen / Unknown 04/12/2025 10:09 AM EDT 04/12/2025 11:14 AM EDT us Shravan Dunne MD LAB BLOOD ORDERABLES Final Resul t [facility] [address] [place] [address] [phone] * US Pelvis Transvaginal (02/27/2025 4:30 PM EDT) Anatomical Region Laterality Modality Pelvis Ultrasound 02/27/2025 4:30 PM EDT Narrative 02/27/2025 5:46 PM EDT [address] [address] Ultrasound Report Signed Patient: Karen Og MR#: [id number] 4 : 1970 Acct:[id number] Age/Sex: 54 / F ADM Date: 02/27/25 Loc: HO.US Attending Dr: Juan Espinoza MD Ordering Physician: Juan Espinoza MD Date of Service: 02/27/25 Procedure(s): US pelvic and transvaginal Accession Number(s): [id number] cc: Tammi Burgess MD; Juan Espinoza MD [...] 02/27/25 1743 DD/ 1630 TD/TT: 02/27/25 1645 Heater Engineer Helper: Procedure Note Donotuseinterpreter, Image - 02/27/2025 [place] [address] Ultrasound Report Signed Patient: Karen Og MMR#: [id number] 4 : 1970Acct:[id number] Age/Sex: 54 / FADM Date: 02/27/25 Loc: HO.US Attending Dr: Juan Espinoza MD Ordering Physician: Juan Espinoza MD Date of Service: 02/27/25 Procedure(s): US pelvic and transvaginal Accession Number(s): [id number] cc: Tammi Burgess MD; Juan Espinoza MD [...] 02/27/25 1743 DD/ 1630 TD/TT: 02/27/25 1645 Heater Engineer Helper: [facility] External Provider IMG US PROCEDURES Final Result * BI Mammogram Screening Tomosynthesis Bilateral (02/27/2025 2:00 PM EDT) Anatomical Region Laterality Modality Breast Bilateral Mammography 02/27/2025 2:00 PM EDT Narrative 03/09/2025 8:24 AM EDT [facility] [address] [place] [address] Mammography Report Signed Patient: Karen Og MR#: [id number] 4 : 1970 Acct:[id number] Age/Sex: 54 / F ADM Date: 02/27/25 Loc: HO.MAMMO Attending Dr: Tammi Sorenson MD Ordering Physician: Tammi Burgess MD Re sults: 1Negative Date of Service: 02/27/25 Follow Up: 1 Year From Orig inal Mammogram Procedure(s): MM tomosynthesis screening BI Accession Number(s): [id number] cc: Tammi Burgess MD EXAMINATION: MM SCREENING [...] 03/09/25 0821 DD/ 1400 TD/TT: 02/27/25 1412 Heater Engineer Helper: Procedure Note Donotuseinterpreter, Image - 03/09/2025 [facility] [address] [place] [address] Mammography Report Signed Patient: Karen Og MMR#: [id number] 4 : 1970Acct:[id number] Age/Sex: 54 / FADM Date: 02/27/25 Loc: ROSA.YAYOO Attending Dr: Tammi Sorenson MD Ordering Physician: Tammi Burgesse sults: 1Negative Date of Service: 02/27/25Follow Up: 1 Year From Orig inal Mammogram Procedure(s): MM tomosynthesis screening BI Accession Number(s): [id number] cc: Tammi Burgess MD EXAMINATION: MM SCREENING [...] 03/09/25 0821 DD/ 1400 TD/TT: 02/27/25 1412 Heater Engineer Helper: Tammi Sorenson MD IMG BI PROCEDURES Final Result * Chlamydia/Trichomonas/Neisseria gonorrhoeae, PCR, Urine (02/06/2025 10:04 AM EDT) CT PCR, Urine NOT DETECTED Not Detect. [facility] Comment:A not detected test result [...] NG PCR, Urine NOT DETECTED Not Detect. [facility] Comment:A not detected test result [...] ORDERAB LES Final Result Performing Organization Address [facility] [address] [facility]/ZIP Co de Phone Number [facility] [address] [place] [phone] * Syphilis Screen (02/06/2025 10:04 AM EDT) Syphilis Screen Nonreactive Nonreactive [facility] Blood 02/06/2025 10:0 4 AM EDT 02/06/2025 11:11 AM EDT Tammi Sorenson MD LAB BLOOD ORDERAB LES Final Result Performing Organization Address [facility] [address]/ZIP Co de Phone Number [facility] [address] [place] [phone] * Vitamin B12 (Cobalamin) and Folate Panel, Serum (02/06/2025 10:04 AM EDT) Vitamin B12 645 200 - 900 pg/mL [facility] Comment:NORMAL 200-900 PG/ML INDETERMINATE 160-199 PG/ML DEFICIENT < 160 PG/ML Folate 15.9 > or = 4.0 ng/mL [facility] Comment:Reference Values:> o r = 4.0 ng/mL< 4.0 ng/mL suggests folate deficiency Methotrexate, aminopterin and folinic acid(leucovorin) are chemotherapeutic agents whose molecularstructures are similar to folate; therefore, the Architectfolate assay cannot be used for patients using these drugs. Blood 02/06/2025 10:0 4 AM EDT 02/06/2025 11:11 AM EDT Tammi Sorenson MD LAB BLOOD ORDERAB LES Final Result Performing Organization Address City/[facility] [address]/ZIP Co de Phone Number [facility] [address] [place] [phone] * TSH with Reflex to Free T4 (02/06/2025 10:04 AM EDT) TSH reflex Free T4 2.27 0.32 - 4.0 uIU/mL [facility] Blood 02/06/2025 10:0 4 AM EDT 02/06/2025 11:11 AM EDT Tammi Sorenson MD LAB BLOOD ORDERAB LES Final Result Performing Organization Address City/[facility] [address]/ZIP Co de Phone Number [facility] [address] [place] [phone] * Hepatitis C Antibody with Reflex to HCV, RNA, Quantitative, Real-Time PCR (02/06/2025 10:04 AM EDT) Hepatitis C Antibody Nonreactive Nonreactive [facility] Comment:Antibodies to HCV no t detected; does not exclude early acuteHCV infection. Blood Venous blood specimen / Unknown 02/06/2025 10:04 AM EDT 02/06/2025 11:11 AM EDT Tammi Sorenson MD LAB BLOOD ORDERAB LES Final Result Performing Organization Address City/[facility] [address]/ZIP Co de Phone Number [facility] [address] [place] [phone] * Hepatitis B surface antigen, EIA (02/06/2025 10:04 AM EDT) Pathologist [facility] Hepatitis B Surface Ag Negative Negative [facility] Blood Venous blood specimen / Unknown 02/06/2025 10:04 AM EDT 02/06/2025 11:11 AM EDT us Tammi Sorenson MD LAB BLOOD ORDERAB LES Final Result Performing Organization Address [facility] de Phone Number [facility] [address] [place] [phone] * HIV-1/2 Antigen and Antibodies, Fourth Generation, with Reflexes (02/06/2025 10:04 AM EDT) [facility] HIV AB/AG Nonreactive Nonreactive [facility] Comment:HIV-1 p24 Ag and/or HIV-1/HIV-2 Ab not detected.A test result that is nonreactive does not exclude thepossibility of exposure to or infection with HIV-1 and/orHIV-2. Nonreactive results in this assay for individualswith prior exposure to HIV-1 and/or HIV-2 may be due toantigen and antibody levels that are below the limit ofdetection of this assay.The [employer] PlusniMelon #usemelon HIV Ag/Ab Combo assay result andsupplemental assay results should be interpreted inconjunction with the patient's clinical presentation,history and other laboratory results. If the results areinconsistent with clinical evidence, additional testing issuggested to confirm the result. Blood Venous blood specimen / Unknown 02/06/2025 10:04 AM EDT 02/06/2025 11:11 AM EDT us Tammi Sorenson MD LAB BLOOD ORDERAB LES Final Result Performing Organization Address [facility] [address] [facility] Co de Phone Number [facility] [address] [place] [address] [phone] * CBC (02/06/2025 10:04 AM EDT) White Blood Count 5.7 4.8 - 10.8 X10*3/uL [facility] Red Blood Count 4.51 4.20 - 5.50 X10*6/uL [facility] Hemoglobin 14.1 12.0 - 16.0 g/dl [facility] Hematocrit 43.3 37.0 - 47.0 % [facility] Mean Corpuscular Volume 96.0 80.0 - 98.0 fL [facility] Mean Corpuscular Hemoglobin 31.3 27.0 - 33.0 pg [facility] Mean Corpuscular HGB Conc 32.6 31.0 - 35.0 g/dl [facility] Red Cell Distribution Width 13.8 11.0 - 16.0 % [facility] Platelet Count 223 160 - 400 X10*3/uL [facility] Mean Platelet Volume 9.9 9.4 - 12.3 fL [facility] NRBC Pct Auto 0.0 0.0 - 0.2 /100WBC [facility] NRBC Abs Auto 0.000 0.0 - 0.012 X10*3/uL [facility] Blood Venous blood specimen / Unknown 02/06/2025 10:04 AM EDT 02/06/2025 11:11 AM EDT us Tammi Sorenson MD LAB BLOOD ORDERAB LES Final Result [facility] [address] [place] [phone] [phone] * Hemoglobin A1c (02/06/2025 10:04 AM EDT) Hemoglobin A1c 5.5 <6.0 % [facility] Comment:Hemoglobin A1C Refer ence Range Adults: 4.8 - 6.0 % Non diabetic: < 6.0 % Goal: < 7.0 %Additional Action Suggested: > 8.0 %Note: Hemoglobin A1c results are invalid for patients with abnormal amounts of HbF. Blood transfusions may impact the HbA1c concentration in the patient sample. Estimated Average Glucose 111 mg/dL [facility] Comment:eAG = Estimated ave rage glucose which is %A1C expressed asaverage glucose, using the formula of the F5B-RkwogreQwgowth Glucose study (ADAG), Diabetes Care, Vol.31,#8,Feb. 2007 Blood Venous blood specimen / Unknown 02/06/2025 10:04 AM EDT 02/06/2025 11:11 AM EDT Tammi Sorenson MD LAB BLOOD ORDERAB LES Final Result [facility] [address] [place] [address] [phone] * (ABNORMAL) Lipid Panel, Standard (02/06/2025 10:04 AM EDT) Triglycerides 176(H) <150 mg/dL [facility] Comment:Desirable Triglyceri de: less than 150 mg/dLBorderline High Triglyceride 150-199 mg/dLHigh Triglyceride: 200-499 mg/dLVery High Triglyceride: greater than or equal to 5OO mg/dL Cholesterol 251(H) <200 mg/dL [facility] Comment:Desirable Cholestero l: less than 200 mg/dLBorderline High Cholesterol: 200-239 mg/dLHigh Cholesterol: greater than 239 mg/dL LDL Cholesterol Calculated 152(H) <100 mg/dL [facility] Comment:Desirable LDL: less than 100 mg/dLNear Optimal/Above Optimal LDL: 110- 129 mg/dLBorderline High LDL: 130-159 mg/dLHigh LDL: 160-189 mg/dLVery High LDL: greater than or equal to 190 mg/dL HDL Cholesterol 64 >40 mg/dL [facility] Comment:Desirable HDL: great er than 40 mg/dL Note: This HDL assay may give artificially low results in patients with liver disease. Blood Venous blood specimen / Unknown 02/06/2025 10:04 AM EDT 02/06/2025 11:11 AM EDT Tammi Sorenson MD LAB BLOOD ORDERAB LES Final Result [facility] [address] [place] [phone] * MR Brain w/o Contrast (01/12/2025 8:46 AM EDT) Anatomical Region Laterality Modality Brain Magnetic Resonan ce 01/12/2025 8:46 AM EDT Narrative 01/12/2025 8:48 AM EDT [address] [address] Magnetic Resonance Report Signed Patient: Karen Og MR#: [id number] 4 : 1970 Acct:[id number] Age/Sex: 54 / F ADM Date: 01/11/25 Loc: HO.MRI Attending Dr: Tammi Sorenson MD Ordering Physician: Tammi Burgess MD Date of Service: 01/11/25 Procedure(s): MR head/brain wo con Accession Number(s): [id number] cc: Tammi Burgess MD CLINICAL HISTORY: pt [...] Araceli Ruffin MD in OV> 01/12/2548 DD/ 5 TD/TT: 01/12/25845 Heater Engineer Helper: Procedure Note Donotuseinterpreter, Image - 01/12/[address] [address] Magnetic Resonance Report Signed Patient: Karen Og MMR#: [id number] 4 : 1970Acct:[id number] Age/Sex: 54 / FADM Date: 01/11/25 Loc: HO.MRI Attending Dr: Tammi Sorenson MD Ordering Physician: Tammi Burgess MD Date of Service: 01/11/25 Procedure(s): MR head/brain wo con Accession Number(s): [id number] cc: Tammi Burgess MD CLINICAL HISTORY: pt [...] Ruffin MD in OV> 01/12/25 0848 DD/ 0846 TD/TT: 01/12/25 0846 Heater Engineer Helper: Tammi Sorenson MD IMG MRI PROCEDURE S [...] E6/E7 rflx Not Detected Not Detected [facility] Comment: Methodology: Disc Pad Knockout Worker-Mediated Amplification This assay detects E6/E7 viral messenger RNA (mRNA) from 14 high-risk HPV types (16,18,31,33,35,39,45,51,52,56,58,59,66,68). The analytical performance characteristics of this assay have been determined by [employer]. The modifications have not been cleared or approved by the FDA. This assay has been validated pursuant to the CLIA regulations and is used for clinical purposes. For additional information, please refer to http://education.[place]/faq/UHL656y1 (This link if provided for information/ educational purposes only.) THIS TEST WAS PERFORMED AT: [email or web address] [address] [address] AMY BLANCAS MD 08/15/2021 1:40 PM EST Historical Provider HISTORICAL/NON ORDERABLE LABS Final Result Performing Organization Address [facility] Co de Phone Number [facility] [address] [place] [address], * THINPREP PAP (01/11/2021 11:51 AM EDT) [...] along with historic and current clinical information. Employment Consultant : SEE COMMENT [facility] Comment: GSG, CT(ASCP) CT screening location: [address] [address] Interpretation/R esult: Negative for intraepithelial lesion or malignancy. [facility] LMP: NONE GIVEN [facility] Prev. BX: NONE GIVEN [facility] Prev. PAP: NONE GIVEN [facility] SOURCE: None given [facility] Statement Of Adequacy: SEE COMMENT [facility] Comment: Satisfactory for evaluation. Endocervical/transformation zone component present. 01/11/2021 11:5 1 AM EDT Historical Provider LAB PATHOLOGY ORDERABLES Final Result Performing Organization Address City/[facility]/ZIP Co de Phone Number [facility] [address] from Last 3 Months or Most Recently Relevant to Health Maintenance Insurance [place] [facility] MEDICAID STAND ADULT DENTAL - HSN FULL (MEDICAID) Care Teams Virtual Classroom Manager Relationship Specialty Start Date End Date Tammi Burgess MD [address] [place] [phone] PCP - General Internal Medicine 04/13/23
--- OUTSIDE RECORDS SUMMARY | 2025-04-13 17:26 | XMS_ITS | Clinical Summary ---
Author Organization [facility] Address [address] [place] [address] [place] [phone] Phone Care Team Providers Care W[facility] Consultant Name Role Phone Popeye Vera NP Primary Care Provider [phone] Social History Tobacco Use Types Packs/Day Years [...] file Medical Devices Not on file Insurance [facility] NON NSPG PCP SILVER [employer]ITY [employer] NON NSPG PCP [employer]ARE [employer] NON NSPG PCP SILVER CLARITY CONNECTORCARE WELLSENSE NON NSPG PCP SILVER CLARITY CONNECTORCARE WELLSENSE NON NSPG PCP SILVER CLARITY CONNECTORCARE WELLSENSE NON NSPG PCP SILVER CLARITY CONNECTORCARE WELLSENSE NON NSPG PCP SILVER CLARITY CONNECTORCARE WELLSENSE NON NSPG PCP SILVER CLARITY CONNECTORCARE WELLSENSE NON NSPG PCP SILVER CLARITY CONNECTORCARE [place] [phone] Care Teams Wound Care Center Consultant Relationship Specialty Start Date End Date Popeye Vera NP [address] [place] [address] PCP - General 12/16/18 Additional Source Comments The information contained in this document represents components of the legal health record. It is not the complete legal health record.[facility]
--- OUTSIDE RECORDS SUMMARY | 2025-04-13 17:26 | XMS_ITS | Encounter Summary ---
Author Organization [facility] Address [address] [place] [address] 7 [place] [address] Care Team Providers Care Licensed Tax Consultant Name Role Phone Charito Lawrence Primary Care Provider Tammi Downs MD Primary Care Pro vider Encounter Details Date Type Department Care Team (Latest Contact Info) Description 07/29/2018 Abstract [facility] CONVERSIONS Dental, Provider, DDS Social History Tobacco [...] Description 06/29/2025 9:30 AM EST Office Visit [facility] MEDICINE [address] [place] [address] Tammi Burgess MD [address] [place] [address] documented as of this encounter Visit Diagnoses Not on filedocumented in this encounter Care Teams Licensed Tax Consultant Relationship Specialty Start Date End Date Charito Lawrence FNP PCP - General Family Medicine 05/17/21 04/12/23 Tammi Burgess MD [address] [place], [place] [phone] PCP - General Internal Medicine 04/13/23 documented as of this encounter
--- OUTSIDE RECORDS SUMMARY | 2025-04-13 17:26 | XMS_ITS | Encounter Summary ---
Author Organization [employer] Address [address] [facility] 7t [place] [address] Care Team Providers Care Wool And Pelt Grader Name Role Phone Tammi Burgess MD Primary Care Pro vider Encounter Details Date Type Department Care Team (Latest Contact Info) Description 03/09/2025 Results Follow-Up [facility] [address] [place] [address] Tammi Burgess MD [address] [place] [address] BI Mammogram Screening Tomosynthesis Bilateral Social History [...] Description 06/29/2025 9:30 AM EST Office Visit [facility] [address] [place] [address] Tammi Burgess MD [address] [place] [address] documented as of this encounter Visit Diagnoses Not on filedocumented in this encounter Additional Health Concerns Assessment Noted Time PHQ-9 Depression Total Score: 8 12/27/19 25 3:12 PM EDT documented as of this encounter Care Teams Wool And Pelt Grader Relationship Specialty Start Date End Date Tammi Burgess MD [address] [place] [phone] PCP - General Internal Medicine 04/13/23 documented as of this encounter
--- OUTSIDE RECORDS SUMMARY | 2025-04-13 17:26 | XMS_ITS | Encounter Summary ---
Author Organization [facility] Address [address] [facility] [address] [place] [address] Phone Care Team Providers Care Shoe Patternmaker Name Role Phone Popeye Vera APPEALS ASSISTANT Primary Care Provider [phone] Encounter Details Date Type Department Care Team (Late st Contact Info) Description 12/17/2018 Ancillary Orders [facility] [address] [place] [address] [place] [address] Fab Berry DO [address] [place] [address] Palpitations Social History Tobacco Use Types Packs/Day [...] Palpitations documented in this encounter Care Teams Shoe Patternmaker Relationship Specialty Start Date End Date Popeye Vera NP [address] [place] [address] PCP - General 12/16/18 documented as of this encounter Additional Source Comments The information contained in this document represents components of the legal health record. It is not the complete legal health record.[facility]
--- OUTSIDE RECORDS SUMMARY | 2025-04-13 17:26 | XMS_ITS | Encounter Summary ---
Author Organization [employer] Address [address] [place] [address] 7 [place] [address] Care Team Providers Care Manager Mechanical Maintenance Name Role Phone Tammi Burgess MD Primary Care Pro vider Reason for Referral * Consultation (Routine) - Closed Specialty Diagnoses / Procedures Referred By Contac t Referred To Contact Orthopaedic Surgery Diagnoses Knee pain, unspecified chronicity, unspecified laterality Tammi Burgess MD [address] [place] [address] Phone: tel: fax: [facility] [address] [place] [address] Phone: tel: Referral ID Status Reason Start Date Expiration Date V isits Requested Visits Authorized [id number] Closed Specialty Services Required 11/24/2024 11/24/2025 6 6 Encounter Details Date Type Department Care Team (Late st Contact Info) Description 12/07/2024 Orders Only [facility] [address] [place] [phone] Tammi Burgess MD [address] [place], [place] [phone] Knee pain, unspecified chronicity, unspecified laterality (Primary [...] Description 06/29/2025 9:30 AM EST Office Visit [facility] [address] [place] [address] Tammi Burgess MD [address] [place] [address] Scheduled Referrals Name Type Priority Associated Diagnoses [...] as of this encounter Care Teams Manager Mechanical Maintenance Relationship Specialty Start Date End Date Tammi Burgess MD [address] [place] [phone] PCP - General Internal Medicine 04/13/23 documented as of this encounter
--- OUTSIDE RECORDS SUMMARY | 2025-04-13 17:26 | XMS_ITS | Encounter Summary ---
Author Organization [employer] Address [address] [facility] 7t [place] [address] Care Team Providers Care Double Needle Stitcher Name Role Phone Tammi Burgess MD Primary Care Pro vider Encounter Details Date Type Department Care Team (Late st Contact Info) Description 08/06/[address] [facility] [address] [place], [place] [phone] Judy Prieto MD [address] [place], [place] [phone] Acute pain of right knee (Primary Dx); [...] Description 06/29/2025 9:30 AM EST Office Visit [facility] [address] [place] [address] Tammi Burgess MD [address] [place] [address] documented as of this encounter Visit Diagnoses Diagnosis Acute pain of right knee- Primary Effusion of right knee Dislocation of right knee with medial meniscus tear, initial encounter documented in this encounter Additional Health Concerns Assessment Noted Time PHQ-9 Depression Total Score: 0 07/23/20 11:15 AM EST documented as of this encounter Care Teams Double Needle Stitcher Relationship Specialty Start Date End Date Tammi Burgess MD [address] [place] [address] PCP - General Internal Medicine 04/13/23 documented as of this encounter
--- OUTSIDE RECORDS SUMMARY | 2025-04-13 17:26 | XMS_ITS | Encounter Summary ---
Author Organization [employer] Address [address] [place] [address] 7 [place] [address] Care Team Providers Care Cinder Crew Worker Name Role Phone Charito Lawrence Y[facility] Primary Care Provider Tammi Downs MD Primary Care Pro vider Encounter Details Date Type Department Care Team (Late st Contact Info) Description 03/31/2023 Abstract [facility] [address] [place] [address] Jamey Hussein, DMD [address] [place] [address] Social History Tobacco Use Types Packs/Day Years [...] Description 06/29/2025 9:30 AM EST Office Visit [facility] [address] [place] [address] Tammi Burgess MD 230 [place] [address] documented as of this encounter Visit Diagnoses Not on filedocumented in this encounter Care Teams Cinder Crew Worker Relationship Specialty Start Date End Date Charito Lawrence FNP PCP - General Family Medicine 05/17/21 04/12/23 Tammi Burgess MD [address] [place] [phone] PCP - General Internal Medicine 04/13/23 documented as of this encounter
--- OUTSIDE RECORDS SUMMARY | 2025-04-13 17:26 | XMS_ITS | Encounter Summary ---
Author Organization [employer] Address [address] [facility] 7t [place] [address] Care Team Providers Care Front Loader Residential Driver Name Role Phone Tammi Burgess MD Primary Care Pro vider Encounter Details Date Type Department Care Team ([facility] st Contact Info) Description 04/12/2025 Orders Only [facility] MEDICINE [address] [place], [place] [phone] Shravan Dunne MD 230 [place], [place] [phone] Social History Tobacco Use Types Packs/Day Years [...] Description 06/29/2025 9:30 AM EST Office Visit [facility] [address] [place] [address] Tammi Burgess MD [address] [place] [address] documented as of this encounter Procedures Procedure Name Priority Date/Time Associated Diagnosis Comments SLIDE REVIEW Routine 04/12/2025 10:09 AM EDT documented in this encounter Results * Slide Review (04/12/2025 10:09 AM EDT) Slide Review VERIFIED [facility] 04/12/2025 10:0 9 AM EDT 04/12/2025 11:14 AM EDT us Shravan Dunne MD LAB BLOOD ORDERABLES Final Resul t [facility] [address] [place] [address] [phone] documented in this encounter Visit Diagnoses Not on filedocumented in this encounter Additional Health Concerns Assessment Noted Time PHQ-9 Depression Total Score: 8 12/27/19 25 3:12 PM EDT documented as of this encounter Care Teams Front Loader Residential Driver Relationship Specialty Start Date End Date Tammi Burgess MD [address] [place] [address] PCP - General Internal Medicine 04/13/23 documented as of this encounter
--- OUTSIDE RECORDS SUMMARY | 2025-04-13 17:26 | XMS_ITS | Encounter Summary ---
Author Organization [employer] Address [address] [place] [address] 7 [place] [address] Care Team Providers Care Grades 1 Thru 6 Visiting Teacher Name Role Phone Tammi Burgess MD Primary Care Pro vider Reason for Visit * Reason Onset Date Comments Nurse Triage 07/16/2023 Encounter Details Date Type Department Care Team ([facility] st Contact Info) Description 07/16/2023 Telephone [facility] [address] [place] [address] Tammi Burgess MD [address] [place] [address] Nurse Triage Social History Tobacco Use Types [...] 07/16/2023 4:32 PM EST Triage call with [place] [id number] Pt requests for Pt to speak for Pt. Pt has acute right knee pain. Pt has been seen in [facility] 07/09/23. Pt was prescribed tylenol 500mg, brace, voltaren gel and xrays. Xrays have been done. Pt isasking what xray results are proposal writer advised that there is evidence of [...] Description 06/29/2025 9:30 AM EST Office Visit [facility] [address] [place] [address] Tammi Burgess MD [address] [place], [place] [phone] documented as of this encounter Visit Diagnoses Not on filedocumented in this encounter Care Teams Grades 1 Thru 6 Visiting Teacher Relationship Specialty Start Date End Date Tammi Burgess MD [address] [place] [phone] PCP - General Internal Medicine 04/13/23 documented as of this encounter
[2025-04-13 21:34] LABS: Leukocytes Stool Qualitative NEGATIVE (NEGATIVE)
[2025-04-14 11:07] LABS: E. coli EAEC Not Detected (Not Detect.); E. coli EPEC Not Detected (Not Detect.); E. coli ETEC Not Detected (Not Detect.); E. coli STEC Not Detected (Not Detect.); Shigella sp./EIEC Not Detected (Not Detect.)
== END 2025-04-13 16:48 | disposition home or self-care (01) ==
LOC: HO.LNP 16:47
PROVIDERS: Visit Provider Family Medicine
DX: R10.13 Epigastric pain (principal)
CPT/HCPCS: 87338; 87507; 89055

== ENCOUNTER 2025-04-18 09:17 | Outpatient (REF) | payer MEDICAID, SELFPAY ==
--- OUTSIDE RECORDS SUMMARY | 2025-04-17 13:40 | XMS_ITS | Encounter Summary ---
Author Organization [employer] Address [address] [facility] 7t [place] [address] Care Team Providers Care Wallcovering Hanger Name Role Phone Tammi Burgess MD Primary Care Pro vider Reason for Visit * Reason Comments Rash Encounter Details Date Type Department Care Team ([facility] st Contact Info) Description 04/17/2025 1:40 PM EDT Office Visit [facility] 230 [place] [address] Kristal San, JT [address] [place] [address] Rash (Primary Dx) Social History Tobacco Use Types [...] Sign Reading Time Taken Comments Blood Pressure 130/76 04/17/2025 1:56 PM EDT Pulse 76 04/17/2025 1:56 PM EDT Temperature 36.6 C (97.8 F) 04/17/2025 1:56 PM EDT Respiratory Rate 18 04/17/2025 1:56 PM EDT Oxygen Saturation - - Inhaled Oxygen Concentration - - Weight 74.3 kg (163 lb 12.8 oz) 04/17/2025 1:56 PM EDT Height 158.8 cm (5' 2.5 ) 04/17/2025 1:56 PM EDT Body Mass Index 29.48 04/17/2025 1:56 PM EDT documented in this encounter Progress Notes * JT Gonzalez - 04/17/2025 1:40 PM EDT Subjective Patient ID: Karen Og is a 54 y.o. female who presents for Rash. HPI [facility] incl fibromyositis, allergic rhinitis, seizure d/o (on depakote and lyrica) Has a spot on L elbow and L knee starting 1 week ago - knee started yesterday Not itchy Does have turtle at home and she recently started cleaning its cage, previously did this Otherwise no changes Turtle is also not new to home Non-smoker Keenan Kelley DORON provided Kyrgyz interpretation. Review of Systems Constitutional: Negative for chills and fever. HENT: Negative for sore throat. Respiratory: Negative for cough and shortness of breath. Cardiovascular: Negative for chest pain. Gastrointestinal: Negative for constipation and diarrhea. Endocrine: Negative for polydipsia, polyphagia and polyuria. Genitourinary: Negative for dysuria. Skin: Positive for rash. Objective BP 130/76 (BP Location: Left arm, Patient Position: Sitting, BP Cuff Size: Adult) Pulse76 Temp 97.8 ??F (36.6 ??C) (Temporal) Resp 18 Ht 5' 2.5 (1.588 m) Wt 163 lb 12.8 oz (74.3kg) BMI 29.48 kg/m?? Physical Exam Vitals reviewed. Constitutional: General: She is not in acute distress. Appearance: Normal appearance. She is not ill-appearing. HENT: Head: Normocephalic and atraumatic. Eyes: General: No scleral icterus. Extraocular Movements: Extraocular movements intact. Pupils: Pupils are equal, round, and reactive to light. Cardiovascular: Rate and Rhythm: Normal rate. Pulmonary: Effort: Pulmonary effort is normal. No accessory muscle usage or respiratory distress. Neurological: Mental Status: She is alert and oriented to person, place, and time. Psychiatric: Mood and Affect: Mood normal. Behavior: Behavior normal. Small round lesions with raised, scaly borders on L elbow and lateral and medial to L knee Assessment/Plan Diagnoses and all orders for this visit: Rash Comments: Consistent with ringworm Advised not to share towel Use cream as below but come in for re evaluation if not getting better in next 2 weeks Orders: - clotrimazole (Lotrimin) 1 % cream; Apply topically 2 times daily for 28 days. documented in this encounter Plan of Treatment Upcoming Encounters Date Type Department Care Team (Late st Contact Info) Description 06/29/2025 9:30 AM EST Office Visit [facility] [address] [place] [address] Tammi Burgess MD [address] [place] [address] documented as of this encounter Visit Diagnoses Diagnosis Rash- Primary Rash and other nonspecific skin eruption documented in this encounter Additional Health Concerns Assessment Noted Time PHQ-9 Depression Total Score: 8 12/27/19 25 3:12 PM EDT documented as of this encounter Care Teams Wallcovering Hanger Relationship Specialty Start Date End Date Tammi Burgess MD [address] [place] [phone] PCP - General Internal Medicine 04/13/23 documented as of this encounter
--- NOTE | ~2025-04-18 | FL_ITS ---
EXAMINATION: XR FLUOROSCOPY BARIUM SWALLOW CLINICAL INFORMATION: Dysphagia COMPARISON: None TECHNIQUE: Fluoroscopic air contrast barium swallow examination was performed utilizing standard techniques with thin and thick barium and effervescent granules. Numerous spot images were obtained. Several fluoroscopic image hold cine sequences were also obtained. FINDINGS: BARIUM SWALLOW: Lateral cine images of the oropharynx and hypopharynx demonstrate normal swallow mechanism with normal epiglottic inversion and soft palate elevation. No laryngeal penetration, glottic or subglottic aspiration identified. No nasopharyngeal reflux present. Hypopharyngeal structures appear normal without evidence of mass or diverticulum. There was no significant cricopharyngeal achalasia. Dual and single contrast images of the esophagus demonstrate normal caliber, contour, and mucosal pattern. No evidence of stricture, mass, or ulcerations identified. Esophageal peristalsis was mildly disordered. No evidence of hiatus hernia identified. Gastroesophageal reflux was identified during the examination to the level of the aortic arch. Dual contrast and single contrast images of the stomach demonstrated normal contour and mucosal pattern without evidence of mass, ulceration, or other abnormality. Contrast freely passed into the gastric antrum and duodenal bulb without delay. Cholecystectomy clips are incidentally noted. FLUOROSCOPY TIME: 2 minutes, 17 seconds Number of Spot Images:7 Number of cines obtained: 9 DOSE AREA PRODUCT: 1885 uGy-m2 (microgray-meter squared) FL/FL barium swallow with air IMPRESSION: 1. Gastroesophageal reflux identified to the level of the aortic arch. 2. Mildly disordered esophageal peristalsis. 3. Otherwise normal barium swallow examination. Electronically signed by: Garett Perez MD 04/18/2025 11:34 AM EDT
--- OUTSIDE RECORDS SUMMARY | 2025-04-18 10:53 | XMS_ITS | Encounter Summary ---
Author Organization [employer] Address [address] [facility] 7t [place] [address] Care Team Providers Care Front End Web Developer Name Role Phone Tammi Burgess MD Primary Care Pro vider Reason for Visit * Reason Comments Med Refill Encounter Details Date Type Department Care Team (Late st Contact Info) Description 08/11/[address] [facility] [address] [place] [address] Tammi Burgess MD [address] [place], [place] [phone] Social History Tobacco Use Types Packs/Day Years [...] Description 06/29/2025 9:30 AM EST Office Visit [facility] [address] [place] [address] Tammi Burgess MD [address] [place] [address] documented as of this encounter Visit Diagnoses Not on filedocumented in this encounter Additional Health Concerns Assessment Noted Time PHQ-9 Depression Total Score: 5 10/20/19 24 10:39 AM EDT documented as of this encounter Care Teams Front End Web Developer Relationship Specialty Start Date End Date Tamim Burgess MD [address] [place] [phone] PCP - General Internal Medicine 04/13/23 documented as of this encounter
--- OUTSIDE RECORDS SUMMARY | 2025-04-18 10:53 | XMS_ITS | Clinical Summary ---
Author Organization [facility] Address [address] [place] [address] [address] [place] [address] Care Team Providers Care Merchandise Manager Name Role Phone Tammi Burgess MD [...] 14 days. 28 tablet 04/11/20 25 Active clotrimazole (Lotrimin) 1 % creamIndications: Rash Apply topically 2 times daily for 28 days. 30 g 04/17/20 25 025 Active Acetaminophen Extra Strength 500 MG tablet [...] cancer: Never smoker Eye: 02/2023 WNL at [facility] Dental: up to date Hernia of abdominal [...] Encounters Date Type Department Care Team Description 04/17/2025 1:40 PM EDT Office Visit [facility] [address] [place] [phone] Kristal San ANP Rash (Primary Dx) 04/17/2025 Travel 04/14/2025 Results Follow-Up [facility] [address] [place] [phone] Shravan Dunne MD Leukocytes Stool Qualitative, Stool - Gastrointestinal panel, CBC auto differential, Comprehensive Metabolic Panel 04/12/2025 Orders Only [facility] [address] [place] [phone] Shravan Dunne MD 04/11/2025 7:20 PM EDT Office Visit [facility] [address] [place] [phone] Shravan Dunne MD Epigastric pain (Primary Dx) 04/11/2025 Travel 04/04/2025 Refill [facility] [address] [place], [place] [phone] Tammi Burgess MD 03/10/2025 Refill [facility] [address] [place] [phone] Tammi Burgess MD Low back pain associated with a spinal disorder other than radiculopathy or spinal stenosis 03/10/[address] [address] Tammi Burgess MD Results 03/09/2025 Results Follow-Up [address] [address] Tammi Burgess MD BI Mammogram Screening Tomosynthesis Bilateral 03/02/2025 1:30 PM EDT Office Visit [address] [address] Tammi Burgess MD Hyperlipidemia, unspecified hyperlipidemia type (Primary Dx); Uterine leiomyoma, unspecified location; Health care maintenance; Mixed anxiety and depressive disorder; Fibromyositis; Tremor of both hands; Onychomycosis 03/02/2025 Travel 02/06/2025 9:30 AM EDT Clinical Support [address] [address] Rashmi Horne RN Memory loss 02/06/2025 Orders Only [address] [address] Tammi Burgess MD 02/06/2025 Travel 01/18/2025 3:15 PM EDT Office Visit [facility] [address] [place] [address] Jamey Hussein DMD Full coverage crown needed for root canal-treated tooth (Primary Dx) from Last 3 Months Immunizations Immunization Administration [...] 18 04/17/2025 1:56 PM EDT Oxygen Saturation 96% 04/11/2025 6:06 PM EDT Inhaled Oxygen Concentration - - Weight 74.3 kg (163 lb 12.8 oz) 04/17/2025 1:56 PM EDT Height 158.8 cm (5' 2.5 ) 04/17/2025 1:56 PM EDT Body Mass Index 29.48 04/17/2025 1:56 PM EDT Plan of Treatment Upcoming Encounters Date Type Department Care Team (Late st Contact Info) Description 06/29/2025 9:30 AM EST Office Visit [facility] [address] [place] [phone] Tammi Burgess MD [address] [place], [place] [phone] Health Maintenance Due Date Last Done Comments [...] Full Mouth 02/20/2026 02/19/2023, 08/2018 Tobacco Screening 04/17/2026 04/17/2025 HPV/Cotest 08/15/2026 08/15/2021, 07/28, 01/11/2021, Additional history exists Mammogram 02/27/2027 02/27/2025, 0808/2023, 11/02/2018 Colonoscopy 05/28/2029 05/28/2022 Colorectal Cancer Screening [...] Procedure Name Priority Date/Time Associated Diagnosis Comments LEUKOCYTES STOOL QUALITATIVE Routine 04/13/2025 10:00 AM EDT Epigastric pain HELICOBACTER PYLORI AG, EIA, STOOL Routine 04/13/2025 10:00 AM EDT Epigastric pain GASTROINTESTINAL PANEL Routine 10:00 AM EDT Epigastric pain SLIDE REVIEW Routine 04/12/2025 10:09 AM EDT COMPREHENSIVE METABOLIC PANEL Routine 04/12/2025 10:09 AM EDT Epigastric pain CBC WITH AUTO DIFFERENTIAL Routine 04/12/2025 10:09 AM EDT Epigastric pain US PELVIS TRANSVAGINAL Routine 4:30 PM EDT BI MAMMOGRAM SCREENING TOMOSYNTHESIS BILATERAL Routine 02/27/2025 2:00 PM EDT CHLAMYDIA/TRICHOMONAS/NE ISSERIA GONORRHOEAE, PCR, URINE Routine 02/06/2025 10:04 AM [...] coverage crown needed for root canal-treated tooth PROPHYLAXIS - ADULT Routine 12/21/2024 3 :00 PM EDT Dental plaque Localized gingival recession Missing teeth, acquired PERIODIC ORAL EVALUATION - ESTABLISHED PATIENT Routine 03/17/2024 3:00 PM EDT Secondary dental caries associated with failed or defective dental restorationist Full coverage crown needed for root canal-treated [...] Recently Relevant to Health Maintenance Results * Leukocytes Stool Qualitative (04/13/2025 10:00 AM EDT) Leukocytes Stool Qualitative NEGATIVE NEGATIVE [facility] Stool 04/13/2025 10:0 0 AM EDT 04/13/2025 4:48 PM EDT us Shravan Dunne MD LAB BODY FLUIDS AND STOOLS ORDER JEROMY Final Result [facility] [address] [place] [phone] * Stool - Gastrointestinal panel (04/13/2025 10:00 AM EDT) Campylobacter Not Detected Not Detect. [facility] Plesiomonas shigelloides Not Detected Not Detect. [facility] Salmonella Not Detected Not Detect. [facility] Vibrio Not Detected Not Detect. [facility] Vibrio cholerae Not Detected Not Detect. [facility] YERSINIA ENTEROCOLITICA Not Detected Not Detect. [facility] Enteroaggregative E. coli (EAEC) Not Detected Not Detect. [facility] Enteropathogenic E. coli (EPEC) Not Detected Not Detect. [facility] Enterotoxigenic E. coli (ETEC) lt/st Not Detected Not Detect. [facility] Shiga-like toxin-producing E. coli (STEC) stx1/stx2 Not Detected Not Detect. [facility] E coli O157 Not applicable Not Detect. [facility] Comment:E. coli containing t he O157 antigen are a subset ofShiga-like toxin- producing E. coli (STEC). Shigella/Enteroinvasive E. coli (EIEC) Not Detected Not Detect. [facility] Cryptosporidium Not Detected Not Detect. [facility] Cyclospora cayetanensis Not Detected Not Detect. [facility] Entamoeba histolytica Not Detected Not Detect. [facility] Giardia lamblia Not Detected Not Detect. [facility] Adenovirus F 40/41 Not Detected Not Detect. [facility] Astrovirus Not Detected Not Detect. [facility] Norovirus GI/GII Not Detected Not Detect. [facility] Rotavirus A Not Detected Not Detect. [facility] Sapovirus Not Detected Not Detect. [facility] Comment: All results must be correlated with clinical findings.Negative results do not exclude the possibility ofgastrointestinal infection and should not be used as thesole basis for diagnosis, treatment, or other managementdecisions. Virus, bacteria, and parasite nucleic acid maypersist in vivo independently of organism viability.Additionally, some organisms may be carriedasymptomatically.Detection of organism targets does not imply that thecorresponding organisms are infectious or are the causativeagents for clinical symptoms. There is a risk of falsenegative values due to the presence of sequence variants inthe gene targets of the assay, amplification inhibitors inspecimens, or inadequate numbers of organisms foramplification.The identification of several diarrheagenic E. colipathotypes has historically relied upon phenotypiccharacteristics. This panel targets genetic determinantscharacteristic of most pathogenic strains, but may notdetect all strains having phenotypic characteristics of apathotype.The performance of this test has not been established formonitoring treatment of infection with any of the panelorganisms.This assay is performed by Multiplexed PCR, utilizing [employer] Array. Stool Rectal contents / Unknown 04/13/2025 10:00 AM EDT 04/13/2025 4:48 PM EDT us Shravan Dunne MD LAB MICROBIOLOGY - GENERAL ORDER JEROMY Final Result Performing Organization Address [facility] Co de Phone Number [facility] [address] [place] [phone] * Helicobacter pylori??Antigen, EIA, Stool (04/13/2025 10:00 AM EDT) H pylori Ag Stool SEE NOTE [facility] Comment:HELICOBACTER PYLORI AG, EIA, STOOL Micro Number: [id number] Test Status: Final Specimen Source: Stool Specimen Quality: Adequate H.pylori Ag: Not Detected Antimicrobials, proton pump inhibitors, and bismuth preparations inhibit H. pylori and ingestion up to two weeks prior to testing may cause false negative results. If clinically indicated the test should be repeated on a new specimen obtained two weeks after discontinuing treatment. Reference Range: Not DetectedTHIS TEST WAS PERFORMED AT:[facility] [place] [phone] BLANCAS MD Stool Rectal contents / Unknown 04/13/2025 10:00 AM EDT 04/13/2025 4:48 PM EDT us Shravan Dunne MD LAB BODY FLUIDS AND STOOLS ORDER JEROMY Final Result [facility] [address] [place] [phone] * Slide Review (04/12/2025 10:09 AM EDT) Slide Review VERIFIED [facility] 04/12/2025 10:0 9 AM EDT 04/12/2025 11:14 AM EDT us Shravan Dunne MD LAB BLOOD ORDERABLES Final Resul t [facility] [address] [place] [phone] * (ABNORMAL) CBC auto differential (04/12/2025 10:09 AM EDT) White Blood Count 10.4 4.8 - 10.8 X10*3/uL [facility] Red Blood Count 4.18(L) 4.20 - 5.50 X10*6/uL [facility] Hemoglobin 12.8 12.0 - 16.0 g/dl [facility] Hematocrit 40.0 37.0 - 47.0 % [facility] Mean Corpuscular Volume 95.7 80.0 - 98.0 fL [facility] Mean Corpuscular Hemoglobin 30.6 27.0 - 33.0 pg [facility] Mean Corpuscular HGB Conc 32.0 31.0 - 35.0 g/dl [facility] Red Cell Distribution Width 14.2 11.0 - 16.0 % [facility] Platelet Count 164 160 - 400 X10*3/uL [facility] Mean Platelet Volume 10.1 9.4 - 12.3 fL [facility] Neutrophils Percent Auto 36.0(L) 45 - 73 % [facility] Imm Gran Pct Auto 1.3(H) 0.0 - 0.4 % [facility] Lymphocytes Percent Auto 20.1 20 - 40 % [facility] Monocytes Percent Auto 7.0 2 - 11 % [facility] Eosinophils Percent Auto 34.7(H) 0 - 4 % [facility] Basophils Percent Auto 0.9 0 - 2 % [facility] NRBC Pct Auto 0.0 0.0 - 0.2 /100WBC [facility] Neutrophils Absolute Auto 3.8 2.0 - 8.3 x10*3/uL [facility] Imm Gran Abs Auto 0.14(H) 0.00 - 0.03 X10*3/uL [facility] Lymphocytes Absolute Auto 2.1 1.2 - 4.9 X10*3/uL [facility] Monocytes Absolute Auto 0.7 0.1 - 1.2 X10*3/uL [facility] Eosinophils Absolute Auto 3.6(H) 0.0 - 0.4 X10*3/uL [facility] Basophils Absolute Auto 0.1 0.0 - 0.2 X10*3/uL [facility] NRBC Abs Auto 0.000 0.0 - 0.012 X10*3/uL [facility] Blood Venous blood specimen / Unknown 04/12/2025 10:09 AM EDT 04/12/2025 11:14 AM EDT us Shravan Dunne MD LAB BLOOD ORDERABLES Edited Resu lt - Final [facility] [address] [place], [place] [phone] * (ABNORMAL) Comprehensive Metabolic Panel (04/12/2025 10:09 AM EDT) Only the most recent of2 resultswithin the time period is included. Sodium 141 135 - 145 mmol/L [facility] Potassium 4.5 3.3 - 5.1 mmol/L [facility] Chloride 104 96 - 108 mmol/L [facility] Carbon Dioxide 30(H) 22 - 29 mmol/L [facility] Anion Gap 12 12 - 20 [facility] Urea Nitrogen (BUN) 15 9 - 16 mg/dL [facility] Creatinine, Serum 0.69 0.5 - 1.4 mg/dL [facility] Estimated Glomerular Filt Rate >60 [facility] Comment:Chronic Kidney Disea se: Estimated GFR < 60 mL/min/1.45m6Kssndd Kidney Disease: Estimated GFR < 15 mL/min/1.73m2 Glucose 93 60 - 115 mg/dL [facility] Calcium 9.2 8.4 - 10.2 mg/dL [facility] Bilirubin, Total 0.3 0.0 - 1.0 mg/dL [facility] Aspartate Amino Transferase 23 5 - 31 U/L [facility] Alanine Aminotransferase 11 0 - 31 U/L [facility] Total Protein 6.9 6.5 - 8.0 g/dL [facility] Albumin Level 3.8 3.5 - 5.0 g/dL [facility] Alkaline Phosphatase 66 39 - 117 U/L [facility] Blood Venous blood specimen / Unknown 04/12/2025 10:09 AM EDT 04/12/2025 11:14 AM EDT us Shravan Dunne MD LAB BLOOD ORDERABLES Final Resul t Performing Organization Address City/State/[facility] Co de Phone Number [facility] [address] [place] [phone] * US Pelvis Transvaginal (02/27/2025 4:30 PM EDT) Anatomical Region Laterality Modality Pelvis Ultrasound 02/27/2025 4:30 PM EDT Narrative 02/27/2025 5:46 PM EDT [address] [address] Ultrasound Report Signed Patient: Karen Og MR#: [id number] 4 : 1970 Acct:[id number] Age/Sex: 54 / F ADM Date: 02/27/25 Loc: .US Attending Dr: Juan Espinoza MD Ordering Physician: Juan Espinoza MD Date of Service: 02/27/25 Procedure(s): US pelvic and transvaginal Accession Number(s): [id number] cc: Tammi Burgess MD; Juan Espinoza MD [...] by Cornel Guardado MD in OV> 02/27/25 2139 DD/ 1630 TD/TT: 02/27/25 1645 Bread Panner: Procedure Note Donotuseinterpreter, Image - 02/27/[address] [address] Ultrasound Report Signed Patient: Karen Og MMR#: [id number] 4 : 1970Acct:[id number] Age/Sex: 54 / FADM Date: 02/27/25 Loc: HO.US Attending Dr: Juan Espinoza MD Ordering Physician: Juan Espinoza MD Date of Service: 02/27/25 Procedure(s): US pelvic and transvaginal Accession Number(s): [id number] cc: Tammi Burgess MD; Juan Espinoza MD [...] 02/27/25 1743 DD/ 1630 TD/TT: 02/27/25 1645 Bread Panner: us [facility] External Provider IMG US PROCEDURES Final Result * BI Mammogram Screening Tomosynthesis Bilateral (02/27/2025 2:00 PM EDT) Anatomical Region Laterality Modality Breast Bilateral Mammography 02/27/2025 2:00 PM EDT Narrative 03/09/2025 8:24 AM EDT [address] [place] [address] Mammography Report Signed Patient: Karen Og MR#: [id number] 4 : 1970 Acct:[id number] Age/Sex: 54 / F ADM Date: 02/27/25 Loc: HO.MAMMO Attending Dr: Tammi Sorenson MD Ordering Physician: Tammi Burgess MD Re sults: 1Negative Date of Service: 02/27/25 Follow Up: 1 Year From Orig inal Mammogram Procedure(s): MM tomosynthesis screening BI Accession Number(s): [id number] cc: Tammi Burgess MD EXAMINATION: MM SCREENING [...] Mary Schultz DO 03/09/2025 08:21 AM EDT RP Dictated By: Mary Schultz DO Signed By: <Electronically signed by Mary Schultz DO in OV> 03/09/25 0821 DD/ 1400 TD/TT: 02/27/25 1412 Bread Panner: Procedure Note Donotuseinterpreter, Image - 03/09/2025 [facility] [address] [place] [address] Mammography Report Signed Patient: Karen Og MMR#: [id number] 4 : 1970Acct:[id number] Age/Sex: 54 / FADM Date: 02/27/25 Loc: HO.MAMMO Attending Dr: Tammi Sorenson MD Ordering Physician: Tammi Burgess sults: 1Negative Date of Service: 02/27/25Follow Up: 1 Year From Orig ina Mammogram Procedure(s): MM tomosynthesis screening BI Accession Number(s): [id number] cc: Tammi Burgess MD EXAMINATION: MM SCREENING [...] 03/09/25 0821 DD/ 1400 TD/TT: 02/27/25 1412 Bread Panner: Tammi Sorenson MD IMG BI PROCEDURES Final Result * Chlamydia/Trichomonas/Neisseria gonorrhoeae, PCR, Urine (02/06/2025 10:04 AM EDT) CT PCR, Urine NOT DETECTED Not Detect. [facility] Comment:A not detected test result [...] NG PCR, Urine NOT DETECTED Not Detect. [facility] Comment:A not detected test result [...] ORDERAB LES Final Result Performing Organization Address [facility] Co de Phone Number [facility] [address] [place] [phone] * Syphilis Screen (02/06/2025 10:04 AM EDT) Syphilis Screen Nonreactive Nonreactive [facility] Blood 02/06/2025 10:0 4 AM EDT 02/06/2025 11:11 AM EDT Tammi Sorenson MD LAB BLOOD ORDERAB LES Final Result Performing Organization Address [facility] Phone Number [facility] [address] [place] [phone] * Vitamin B12 (Cobalamin) and Folate Panel, Serum (02/06/2025 10:04 AM EDT) Vitamin B12 645 200 - 900 pg/mL [facility] Comment:NORMAL 200-900 PG/ML INDETERMINATE 160-199 PG/ML DEFICIENT < 160 PG/ML Folate 15.9 > or = 4.0 ng/mL [facility] Comment:Reference Values:> o r = 4.0 ng/mL< 4.0 ng/mL suggests folate deficiency Methotrexate, aminopterin and folinic acid(leucovorin) are chemotherapeutic agents whose molecularstructures are similar to folate; therefore, the Architectfolate assay cannot be used for patients using these drugs. Blood 02/06/2025 10:0 4 AM EDT 02/06/2025 11:11 AM EDT Tammi Sorenson MD LAB BLOOD ORDERAB LES Final Result Performing Organization Address [facility] Co de Phone Number [facility] [address] [place] [phone] * TSH with Reflex to Free T4 (02/06/2025 10:04 AM EDT) TSH reflex Free T4 2.27 0.32 - 4.0 uIU/mL [facility] Blood 02/06/2025 10:0 4 AM EDT 02/06/2025 11:11 AM EDT us Tammi Sorenson MD LAB BLOOD ORDERAB LES Final Result [facility] [address] [place] [phone] * Hepatitis C Antibody with Reflex to HCV, RNA, Quantitative, Real-Time PCR (02/06/2025 10:04 AM EDT) Pathologist [facility] Hepatitis C Antibody Nonreactive Nonreactive [facility] Comment:Antibodies to HCV no t detected; does not exclude early acuteHCV infection. Blood Venous blood specimen / Unknown 02/06/2025 10:04 AM EDT 02/06/2025 11:11 AM EDT us Tammi Sorenson MD LAB BLOOD ORDERAB LES Final Result [facility] [address] [place] [phone] * Hepatitis B surface antigen, EIA (02/06/2025 10:04 AM EDT) Pathologist [facility] Hepatitis B Surface Ag Negative Negative [facility] Blood Venous blood specimen / Unknown 02/06/2025 10:04 AM EDT 02/06/2025 11:11 AM EDT us Tammi Sorenson MD LAB BLOOD ORDERAB LES Final Result [facility] [address] [place] [phone] * HIV-1/2 Antigen and Antibodies, Fourth Generation, with Reflexes (02/06/2025 10:04 AM EDT) [facility] HIV AB/AG Nonreactive Nonreactive [facility] Comment:HIV-1 p24 Ag and/or HIV-1/HIV-2 Ab not detected.A test result that is nonreactive does not exclude thepossibility of exposure to or infection with HIV-1 and/orHIV-2. Nonreactive results in this assay for individualswith prior exposure to HIV-1 and/or HIV-2 may be due toantigen and antibody levels that are below the limit ofdetection of this assay.The [employer] HIV Ag/Ab Combo assay result andsupplemental assay results should be interpreted inconjunction with the patient's clinical presentation,history and other laboratory results. If the results areinconsistent with clinical evidence, additional testing issuggested to confirm the result. Blood Venous blood specimen / Unknown 02/06/2025 10:04 AM EDT 02/06/2025 11:11 AM EDT us Tammi Sorenson MD LAB BLOOD ORDERAB LES Final Result [facility] [address] [place] [phone] * CBC (02/06/2025 10:04 AM EDT) [facility] White Blood Count 5.7 4.8 - 10.8 X10*3/uL [facility] Red Blood Count 4.51 4.20 - 5.50 X10*6/uL [facility] Hemoglobin 14.1 12.0 - 16.0 g/dl [facility] Hematocrit 43.3 37.0 - 47.0 % [facility] Mean Corpuscular Volume 96.0 80.0 - 98.0 fL [facility] Mean Corpuscular Hemoglobin 31.3 27.0 - 33.0 pg [facility] Mean Corpuscular HGB Conc 32.6 31.0 - 35.0 g/dl [facility] Red Cell Distribution Width 13.8 11.0 - 16.0 % [facility] Platelet Count 223 160 - 400 X10*3/uL [facility] Mean Platelet Volume 9.9 9.4 - 12.3 fL [facility] NRBC Pct Auto 0.0 0.0 - 0.2 /100WBC [facility] NRBC Abs Auto 0.000 0.0 - 0.012 X10*3/uL [facility] Blood Venous blood specimen / Unknown 02/06/2025 10:04 AM EDT 02/06/2025 11:11 AM EDT us Tammi Sorenson MD LAB BLOOD ORDERAB LES Final Result [facility] [address] [place] [phone] * Hemoglobin A1c (02/06/2025 10:04 AM EDT) Hemoglobin A1c 5.5 <6.0 % [facility] Comment:Hemoglobin A1C Refer ence Range Adults: 4.8 - 6.0 % Non diabetic: < 6.0 % Goal: < 7.0 %Additional Action Suggested: > 8.0 %Note: Hemoglobin A1c results are invalid for patients with abnormal amounts of HbF. Blood transfusions may impact the HbA1c concentration in the patient sample. Estimated Average Glucose 111 mg/dL [facility] Comment:eAG = Estimated ave rage glucose which is %A1C expressed asaverage glucose, using the formula of the T1I-HvhwmayGxhsugr Glucose study (ADAG), Diabetes Care, Vol.31,#8,Feb. 2007 Blood Venous blood specimen / Unknown 02/06/2025 10:04 AM EDT 02/06/2025 11:11 AM EDT Tammi Sorenson MD LAB BLOOD ORDERAB LES Final Result Performing Organization Address City/[facility]/ZIP Co de Phone Number [facility] [address] [place] [phone] * (ABNORMAL) Lipid Panel, Standard (02/06/2025 10:04 AM EDT) Triglycerides 176(H) <150 mg/dL [facility] Comment:Desirable Triglyceri de: less than 150 mg/dLBorderline High Triglyceride 150-199 mg/dLHigh Triglyceride: 200-499 mg/dLVery High Triglyceride: greater than or equal to 5OO mg/dL Cholesterol 251(H) <200 mg/dL [facility] Comment:Desirable Cholestero l: less than 200 mg/dLBorderline High Cholesterol: 200-239 mg/dLHigh Cholesterol: greater than 239 mg/dL LDL Cholesterol Calculated 152(H) <100 mg/dL [facility] Comment:Desirable LDL: less than 100 mg/dLNear Optimal/Above Optimal LDL: 110- 129 mg/dLBorderline High LDL: 130-159 mg/dLHigh LDL: 160-189 mg/dLVery High LDL: greater than or equal to 190 mg/dL HDL Cholesterol 64 >40 mg/dL [facility] Comment:Desirable HDL: great er than 40 mg/dL Note: This HDL assay may give artificially low results in patients with liver disease. Blood Venous blood specimen / Unknown 02/06/2025 10:04 AM EDT 02/06/2025 11:11 AM EDT Tammi Sorenson MD LAB BLOOD ORDERAB LES Final Result Performing Organization Address City/[facility]/ZIP Co de Phone Number [facility] [address] [place] [phone] * Hm Colonoscopy (05/28/2022 1:55 PM EDT) us Historical Provider HEALTH MAINTENANCE Final Result * HPV E6/E7 RFLX JACOB 16 18/45 (08/15/2021 1:40 PM EST) HPV 16 RNA [facility] HPV 18/45 RNA [facility] HPV E6 E7 ADD [facility] HPV mRNA E6/E7 rflx Not Detected Not Detected [facility] Comment: Methodology: [employer]-Mediated Amplification This assay detects E6/E7 viral messenger RNA (mRNA) from 14 high-risk HPV types (16,18,31,33,35,39,45,51,52,56,58,59,66,68). The analytical performance characteristics of this assay have been determined by [employer]. The modifications have not been cleared or approved by the FDA. This assay has been validated pursuant to the CLIA regulations and is used for clinical purposes. For additional information, please refer to http://education.[employer]/faq/NGW359k0 (This link if provided for information/ educational purposes only.) THIS TEST WAS PERFORMED AT: [facility] [address] [place] [address],[place] [address] AMY BLANCAS MD 08/15/2021 1:40 PM EST us Historical Provider HISTORICAL/NON ORDERABLE LABS Final Result [facility] [address] * THINPREP PAP (01/11/2021 11:51 AM EDT) Clinical Information: None given [facility] COMMENT SEE COMMENT [facility] [...] along with historic and current clinical information. Registered Dental Assistant : SEE COMMENT [facility] Comment: GSG, CT(ASCP) CT screening location: [address] [address] Interpretation/R esult: Negative for intraepithelial lesion or malignancy. [facility] LMP: NONE GIVEN [facility] Prev. BX: NONE GIVEN [facility] Prev. PAP: NONE GIVEN [facility] SOURCE: None given [facility] Statement Of Adequacy: SEE COMMENT [facility] Comment: Satisfactory for evaluation. Endocervical/transformation zone component present. 01/11/2021 11:5 1 AM EDT us Historical Provider MD LAB PATHOLOGY ORDERABLES Final Result [facility] [address] from Last 3 Months or Most Recently Relevant to Health Maintenance Insurance [place] [address] C3 DENTAL-[facility] MEDICAID STAND ADULT DENTAL - HSN FULL (MEDICAID) Care Teams Merchandise Manager Relationship Specialty Start Date End Date Tammi Burgess MD [address] [place] [address] PCP - General Internal Medicine 04/13/23
--- OUTSIDE RECORDS SUMMARY | 2025-04-18 10:54 | XMS_ITS | Encounter Summary ---
Author Organization [employer] [facility] Address [address] [place] [address] 7 [place] [address] Care Team Providers Care Housekeeping Worker Name Role Phone Charito Lawrence Primary Care Provider Tammi Downs MD Primary Care Pro vider Encounter Details Date Type Department Care Team (Latest Contact Info) Description 07/29/2018 Abstract [facility] CONVERSIONS Dental, Provider, DDS Social History [...] Description 06/29/2025 9:30 AM EST Office Visit [facility] MEDICINE [address] [place] [address] Tammi Burgess MD [address] [place] [address] documented as of this encounter Visit Diagnoses Not on filedocumented in this encounter Care Teams Housekeeping Worker Relationship Specialty Start Date End Date Charito Lawrence FNP PCP - General Family Medicine 05/17/21 04/12/23 Tammi Burgess MD [address] [place], [place] [phone] PCP - General Internal Medicine 04/13/23 documented as of this encounter
--- OUTSIDE RECORDS SUMMARY | 2025-04-18 10:54 | XMS_ITS | Encounter Summary ---
Author Organization [employer] Address [address] [facility] 7t [place] [address] Care Team Providers Care Pharmacy Sales Representative Name Role Phone Tammi Burgess MD Primary Care Pro vider Encounter Details Date Type Department Care Team (Latest Contact Info) Description 04/17/2025 Travel Social History Tobacco Use Types Packs/Day [...] Description 06/29/2025 9:30 AM EST Office Visit [facility] MEDICINE [address] [place] [address] [phone] Tammi Burgess MD [address] [place] [address] documented as of this encounter Visit Diagnoses Not on filedocumented in this encounter Additional Health Concerns Assessment Noted Time PHQ-9 Depression Total Score: 8 12/27/19 25 3:12 PM EDT documented as of this encounter Care Teams Pharmacy Sales Representative Relationship Specialty Start Date End Date Tammi Burgess MD [address] [place] [address] [phone] PCP - General Internal Medicine 04/13/23 documented as of this encounter
--- OUTSIDE RECORDS SUMMARY | 2025-04-18 10:54 | XMS_ITS | Encounter Summary ---
Author Organization [employer] [facility] Address [address] [facility] 7t [place] [address] Care Team Providers Care Toll Mechanic Name Role Phone Tammi Burgess MD Primary Care Pro vider Encounter Details Date Type Department Care Team (Latest Contact Info) Description 03/09/2025 Results Follow-Up [facility] MEDICINE [address] [place] [address] Tammi Burgess MD [address] [place] [address] BI Mammogram Screening Tomosynthesis Bilateral Social History [...] Description 06/29/2025 9:30 AM EST Office Visit [facility] MEDICINE [address] [place] [address] Tammi Burgess MD [address] [place] [address] documented as of this encounter Visit Diagnoses Not on filedocumented in this encounter Additional Health Concerns Assessment Noted Time PHQ-9 Depression Total Score: 8 12/27/19 25 3:12 PM EDT documented as of this encounter Care Teams Toll Mechanic Relationship Specialty Start Date End Date Tammi Burgess MD [address] [place] [phone] PCP - General Internal Medicine 04/13/23 documented as of this encounter
--- OUTSIDE RECORDS SUMMARY | 2025-04-18 10:54 | XMS_ITS | Encounter Summary ---
Author Organization [employer] Address [address] [place] [address] 7 [place] [address] Care Team Providers Care Scooter Mechanic Name Role Phone Tammi Burgess MD Primary Care Pro vider Reason for Visit * Reason Onset Date Comments Nurse Triage 07/16/2023 Encounter Details Date Type Department Care Team ([facility] st Contact Info) Description 07/16/2023 Telephone [facility] MEDICINE 230 [place] [address] Tammi Burgess MD [address] [place] [address] Nurse Triage Social History Tobacco Use Types [...] 07/16/2023 4:32 PM EST Triage call with Angelina Corn Husker Machine Operator ID [id number] Pt requests for Pt to speak for Pt. Pt has acute right knee pain. Pt has been seen in [facility] 07/09/23. Pt was prescribed tylenol 500mg, brace, voltaren gel and xrays. Xrays have been done. Pt isasking what xray results are blurb writer advised that there is evidence of [...] Description 06/29/2025 9:30 AM EST Office Visit [facility] MEDICINE [address] [place] [address] Tammi Burgess MD [address] [place], [place] [phone] documented as of this encounter Visit Diagnoses Not on filedocumented in this encounter Care Teams Scooter Mechanic Relationship Specialty Start Date End Date Tammi Burgess MD [address] [place] [address] PCP - General Internal Medicine 04/13/23 documented as of this encounter
--- OUTSIDE RECORDS SUMMARY | 2025-04-18 10:54 | XMS_ITS | Encounter Summary ---
Author Organization [employer] Address 75 [facility] 7t [place] [address] Care Team Providers Care Ring Packer Name Role Phone Tammi Burgess MD Primary Care Pro vider Encounter Details Date Type Department Care Team ([facility] st Contact Info) Description 07/18/2024 Orders Only [facility] MEDICINE 230 [place] [address] ProviderChata MD Social History Tobacco Use Types [...] 1:55 PM EST Pelvic US ordered by CUPROUS CHLORIDE HELPER. Patient to fu results with CUPROUS CHLORIDE HELPER (Dr Espinoza). documented in this encounter Plan of Treatment Upcoming Encounters Date Type Department Care Team (Late st Contact Info) Description 06/29/2025 9:30 AM EST Office Visit [facility] MEDICINE [address] [place] [address] Tammi Burgess MD [address] [place] [address] documented as of this encounter Procedures Procedure [...] PM EST Narrative 08/09/2024 10:56 AM EST [address] [address] Magnetic Resonance Report Signed Patient: Karen Og MR#: [id number] 4 : 1970 Acct:[id number] Age/Sex: 54 / F ADM Date: 08/07/24 Loc: HO.MRI Attending Dr: Keyon Bowles MD Ordering Physician: Keyon Bowles MD Date of Service: 08/07/24 Procedure(s): MR knee LT wo con Accession Number(s): [id number] cc: Tammi Burgess MD; Keyon Bowles MD [...] 08/09/24 1053 DD/ 1458 TD/TT: 08/07/24 1507 Relationship Assoc: Procedure Note Donotuseinterpreter, Image - 08/09/[address] [address] Magnetic Resonance Report Signed Patient: Karen Og MMR#: [id number] 4 : 1970Acct:[id number] Age/Sex: 54 / FADM Date: 08/07/24 Loc: HO.MRI Attending Dr: Keyon Bowles MD Ordering Physician: Keyon Bowles MD Date of Service: 08/07/24 Procedure(s): MR knee LT wo con Accession Number(s): [id number] cc: Tammi Burgess MD; Keyon Bowles MD [...] 08/09/24 1053 DD/ 1458 TD/TT: 08/07/24 1507 Relationship Assoc: us [facility] External Provider IMG MRI PROCEDURES Final Result * US Pelvis Transvaginal (08/02/2024 4:26 PM EST) Anatomical Region Laterality Modality Pelvis Ultrasound 08/02/2024 4:26 PM EST Narrative 08/02/2024 4:27 PM EST [place] [address] Ultrasound Report Signed Patient: Karen Og MR#: [id number] 4 : 1970 Acct:[id number] Age/Sex: 54 / F ADM Date: 08/01/24 Loc: .US Attending Dr: Juan Espinoza MD Ordering Physician: Juan Espinoza MD Date of Service: 08/01/24 Procedure(s): US pelvic and transvaginal Accession Number(s): [id number] cc: Tammi Burgess MD; Juan Espinoza MD CLINICAL HISTORY: D25.9 - Leiomyoma of uterus, unspecified US pelvis transabdominal and transvaginal Comparison: US/AR/SR - US PELVIC AND TRANSVAGINAL - 09/28/23 [...] 08/02/24 1626 DD/ 1626 TD/TT: 08/02/24 162 Relationship Assoc: Procedure Note Donotuseinterpreter, Image - 08/02/2024 [place] [address] Ultrasound Report Signed Patient: Karen Og MMR#: [id number] 4 : 1970Acct:[id number] Age/Sex: 54 / FADM Date: 08/01/24 Loc: HO.US Attending Dr: Juan Espinoza MD Ordering Physician: Juan Espinoza MD Date of Service: 08/01/24 Procedure(s): US pelvic and transvaginal Accession Number(s): [id number] cc: Tammi Burgess MD; Juan Espinoza MD CLINICAL HISTORY: D25.9 - Leiomyoma of uterus, unspecified US pelvis transabdominal and transvaginal Comparison: US/AR/SR - US PELVIC AND TRANSVAGINAL - 09/28/23 [...] OV> 08/02/241625 DD/ 1626 TD/TT: 08/02/24 162 Relationship Assoc: [facility] External Provider IMG US PROCEDURES Final Result * Hm Colonoscopy (05/28/2022 1:55 PM EDT) Historical Provider HEALTH MAINTENANCE Final Result documented in this encounter Visit Diagnoses Not on filedocumented in this encounter Additional Health Concerns Assessment Noted Time PHQ-9 Depression Total Score: 5 10/20/19 24 10:39 AM EDT documented as of this encounter Care Teams Ring Packer Relationship Specialty Start Date End Date Tammi Burgess MD [address] [place] [address] PCP - General Internal Medicine 04/13/23 documented as of this encounter
--- OUTSIDE RECORDS SUMMARY | 2025-04-18 10:54 | XMS_ITS | Encounter Summary ---
Author Organization [employer] Address [address] [place] [address] 7 [place] [address] Care Team Providers Care Licsw Name Role Phone Tammi Burgess MD Primary Care Pro vider Reason for Referral * Consultation (Routine) - Closed Specialty Diagnoses / Procedures Referred By Contac t Referred To Contact Orthopaedic Surgery Diagnoses Knee pain, unspecified chronicity, unspecified laterality Tammi Burgess MD [address] [place] [address] Phone: tel: fax: [facility] Orthopedics [address] [place] [address] Phone: tel: Referral ID Status Reason Start Date Expiration Date V isits Requested Visits Authorized [id number] Closed Specialty Services Required 11/24/2024 11/24/2025 6 6 Encounter Details Date Type Department Care Team (Late st Contact Info) Description 12/07/2024 Orders Only [facility] MEDICINE [address] [place] [address] Tammi Burgess MD [address] [place], [place] [phone] Knee pain, unspecified chronicity, unspecified laterality (Primary [...] Description 06/29/2025 9:30 AM EST Office Visit [facility] MEDICINE [address] [place] [address] Tammi Burgess MD [address] [place] [address] Scheduled Referrals Name Type Priority Associated Diagnoses [...] documented as of this encounter Care Teams Licsw Relationship Specialty Start Date End Date Tammi Burgess MD [address] [place] [address] PCP - General Internal Medicine 04/13/23 documented as of this encounter
--- OUTSIDE RECORDS SUMMARY | 2025-04-18 10:54 | XMS_ITS | Clinical Summary ---
Author Organization [facility] Address [address] [place] [address] [place] [address] Phone Care Team Providers Care Amr Physician Name Role Phone Popeye Vera NP Primary Care Provider [phone] Social History Tobacco Use Types Packs/Day Years [...] file Medical Devices Not on file Insurance [facility] NON NSPG PCP SILVER [employer]ITY [employer] NON NSPG PCP S[employer]VER [employer] NON NSPG PCP SILVER [employer]ARITY CONNECTORCARE [employer] NON NSPG PCP SILVER CLARITY CONNECTORCARE [employer] NON NSPG PCP SILVER CLARITY CONNECTORCARE [employer] NON NSPG PCP SILVER CLARITY CONNECTORCARE [employer] NON NSPG PCP SILVER CLARITY CONNECTORCARE [employer] NON NSPG PCP SILVER CLARITY CONNECTORCARE [employer] NON NSPG PCP SILVER CLARITY CONNE[place] [phone] Care Teams Amr Physician Relationship Specialty Start Date End Date Popeye Vera NP [address] [place] [address] PCP - General 12/16/18 Additional Source Comments The information contained in this document represents components of the legal health record. It is not the complete legal health record.[facility]
--- OUTSIDE RECORDS SUMMARY | 2025-04-18 10:54 | XMS_ITS | Encounter Summary ---
Author Organization [employer] Address [address] [facility] 7t [place] [address] Care Team Providers Care Dethistler Operator Name Role Phone Tammi Burgess MD Primary Care Pro vider Encounter Details Date Type Department Care Team (Latest Contact Info) Description 04/14/2025 Results Follow-Up [facility] [address] [place] [address] Shravan Dunne MD [address] [place] [address] Leukocytes Stool Qualitative, Stool - Gastrointestinal panel, CBC auto differential, Comprehensive Metabolic Panel Social History Tobacco Use Types Packs/Day Years [...] Description 06/29/2025 9:30 AM EST Office Visit [facility] MEDICINE [address] [place] [address] Tammi Bugress MD [address] [place] [address] documented as of this encounter Visit Diagnoses Not on filedocumented in this encounter Additional Health Concerns Assessment Noted Time PHQ-9 Depression Total Score: 8 12/27/19 25 3:12 PM EDT documented as of this encounter Care Teams Dethistler Operator Relationship Specialty Start Date End Date Tammi Burgess MD [address] [place] [address] PCP - General Internal Medicine 04/13/23 documented as of this encounter
--- OUTSIDE RECORDS SUMMARY | 2025-04-18 10:54 | XMS_ITS | Encounter Summary ---
Author Organization [facility] Address [address] [facility] [address] [place] [address] Phone Care Team Providers Care Staff Physical Therapist Name Role Phone Popeye Vera PECAN MALLOW DIPPER Primary Care Provider [phone] Encounter Details Date Type Department Care Team (Late st Contact Info) Description 12/17/2018 Ancillary Orders [facility] [address] [place] [address] [place] [address] Fab Berry DO [address] [place] [address] Palpitations Social History Tobacco Use Types Packs/Day [...] Palpitations documented in this encounter Care Teams Staff Physical Therapist Relationship Specialty Start Date End Date Popeye Vera NP [address] [place] [address] PCP - General 12/16/18 documented as of this encounter Additional Source Comments The information contained in this document represents components of the legal health record. It is not the complete legal health record.[facility]
--- OUTSIDE RECORDS SUMMARY | 2025-04-18 10:54 | XMS_ITS | Encounter Summary ---
Author Organization [employer] Address [address] [place] [address] 7 [place] [address] Care Team Providers Care Control Clerk Repairs Name Role Phone Charito Lawrence [facility] Primary Care Provider Tammi Downs MD Primary Care Pro vider Encounter Details Date Type Department Care Team (Late st Contact Info) Description 03/31/2023 Abstract [facility] ADULT D[facility]AL [address] [place] [address] aJmey Hussein, DMD [address] [place] [address] Social History Tobacco Use Types Packs/Day Years [...] Description 06/29/2025 9:30 AM EST Office Visit [facility] MEDICINE [address] [place] [address] Tammi Burgess MD [address] [place] [address] documented as of this encounter Visit Diagnoses Not on filedocumented in this encounter Care Teams Control Clerk Repairs Relationship Specialty Start Date End Date Charito Lawrence FNP PCP - General Family Medicine 05/17/21 04/12/23 Tammi Burgess MD [address] [place] [address] PCP - General Internal Medicine 04/13/23 documented as of this encounter
--- OUTSIDE RECORDS SUMMARY | 2025-04-18 10:54 | XMS_ITS | Encounter Summary ---
Author Organization [employer] Address [address] [facility] 7t [place] [address] Care Team Providers Care Machine Fitter Name Role Phone Tammi Burgess MD Primary Care Pro vider Encounter Details Date Type Department Care Team (Late st Contact Info) Description 08/06/2023 Orders Only [facility] MEDICINE [address] [place], [place] [phone] Judy Prieto MD [address] [place], [place] [phone] Acute pain of right knee (Primary Dx); [...] Description 06/29/2025 9:30 AM EST Office Visit [facility] MEDICINE [address] [place] [address] Tammi Burgess MD [address] [place] [address] documented as of this encounter Visit Diagnoses Diagnosis Acute pain of right knee- Primary Effusion of right knee Dislocation of right knee with medial meniscus tear, initial encounter documented in this encounter Additional Health Concerns Assessment Noted Time PHQ-9 Depression Total Score: 0 07/23/20 11:15 AM EST documented as of this encounter Care Teams Machine Fitter Relationship Specialty Start Date End Date Tammi Burgess MD [address] [place] [address] PCP - General Internal Medicine 04/13/23 documented as of this encounter
== END 2025-04-18 09:18 | disposition home or self-care (01) ==
LOC: HO.XRAY 09:17
PROVIDERS: PCP Student in an Organized Health Care Education/Training Program; Visit Provider Student in an Organized Health Care Education/Training Program
DX: R13.10 Dysphagia, unspecified (principal)
CPT/HCPCS: 74221

== ENCOUNTER → 2025-04-18 09:18 | Outpatient (BNV) | payer MEDICAID, SELFPAY | PROVIDERS: PCP Student in an Organized Health Care Education/Training Program; Visit Provider Radiology Diagnostic Radiology | DX: K21.9 Gastro-esophageal reflux disease without esophagitis (principal); K22.4 Dyskinesia of esophagus | CPT/HCPCS: 74221 ==

== ENCOUNTER 2025-04-27 13:20 | Outpatient (AMB) | payer MEDICAID, SELFPAY ==
--- NOTE | 2025-04-27 13:26 | MHC.OFFVIS ---
Intake Visit Reasons: OV- Right knee 12/02/24 DR Intake Note: Karen is a 54 year old woman who presents today in office for a follow up of her right knee pain status post undergoing a right knee arthroscopic surgery on 12/02/2024. She reports continued mild to moderate discomfort in her right knee. She denies any fevers or chills. She has tried Tylenol and anti-inflammatory medicines which gave her minimal relief. She has had cortisone injections in the past which gave her no relief. She has not had a viscosupplementation injection. She has failed the last 3 months of conservative treatment which has included muscle relaxants, Tylenol, Celebrex, a home exercise program and physical therapy exercises. At this point her right knee pain is interfering with her activities of daily living and her ability to sleep well through the night. Roll Repairer Required: Yes Roll Repairer Language: Golf Club Maker Services: Roll Repairer Present (ipad) Roll Repairer Name: [id number] Allergies aspirin (ASPIRIN) Allergy (Unknown, Verified 04/27/25 13:32) SWELLING, facial swelling Medication List - Last Reconciled 04/27/25 by Keyon Bowles MD celecoxib (Celebrex) 200 mg PO DAILY PRN clonazepam (Klonopin) 0.5 mg PO BEDTIME 30 days cyclobenzaprine 5 mg PO BEDTIME PRN dicyclomine 10 mg PO TID divalproex (Depakote) 500 mg orally 1 tab in AM and 2 tabs at bedtime; famotidine 20 mg PO BID gabapentin 300 mg PO TID lidocaine 5% patches topical triamcinolone acetonide 0.1% appl topical PFSH Medical History Epilepsy Seizure disorder Dizziness Osteoarthritis of knees, bilateral Migraine Anxiety disorder Fibromyalgia Seizure Surgical History History of cholecystectomy History of tubal ligation Family History Maternal Grandmother Diabetes Father HTN (hypertension) Mother HTN (hypertension) Social History Household Members: Spouse Household Members Other:: son Housing: House Are you a primary child care center assistant director to a significant other at home: No Do you presently have visiting nurse or other home services: No Alcohol intake: current Alcohol intake frequency: holidays/special occasions only Patient Tobacco Use Status: Never used Tobacco Current occupational status: employed 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 Sexual orientation: Straight/Heterosexual Gender identity: Female Female Reproductive History Menstrual Age of Menarche: 10 Physical Exam Const Other: Well-nourished well-developed very friendly female awake alert and oriented x3 in no acute distress Extrem Other: Right knee examination shows that the surgical incisions are well healed, no erythema, palpable crepitus with range of motion, no instability Results Reviewed Results Reviewed: X-rays of the patient's right knee show joint space narrowing, subchondral sclerosis, no acute bony abnormalities Assessment & Plan Assessment & Plan (1) Osteoarthritis of right knee: Code(s): M17.11 - Unilateral primary osteoarthritis, right knee Category: Medical Plan Ms. Og presents with right knee pain due to osteoarthritis. I had a lengthy discussion with the patient regarding the treatment options. I will see if the patient's insurance company will cover a viscosupplementation injection, such as Durolane, for her right knee. I will see her back once the injection is available. Feel free to call me at any time should questions regarding her orthopedic management arise. I spent 20 minutes in reviewing the patient's records and imaging studies, seeing the patient and documenting in the medical record. Coding Level of Care Code Est Pt Level 3 (93850) Complex EM visit Add On G2211 Diagnoses Osteoarthritis of right knee M17.11
--- OUTSIDE RECORDS SUMMARY | 2025-04-27 14:49 | XMS_ITS | Encounter Summary ---
Author Organization [employer] Address [address] [facility] 7t [place] [address] Care Team Providers Care Physician Interventional Cardiologist Name Role Phone Tammi Burgess MD Primary Care Pro vider Encounter Details Date Type Department Care Team (Latest Contact Info) Description 04/14/2025 Results Follow-Up [facility] [address] [place] [address] Shravan Dunne MD [address] [place] [address] Leukocytes Stool Qualitative, Stool - Gastrointestinal panel, [...] [facility] [address] [place] [address] Tammi Burgess MD [address] [place] [address] documented as of this encounter Visit Diagnoses Not on filedocumented in this encounter Additional Health Concerns Assessment Noted Time PHQ-9 Depression Total Score: 8 12/27/19 25 3:12 PM EDT documented as of this encounter Care Teams Physician Interventional Cardiologist Relationship Specialty Start Date End Date Tammi Burgess MD [address] [place] [address] PCP - General Internal Medicine 04/13/23 documented as of this encounter
--- OUTSIDE RECORDS SUMMARY | 2025-04-27 14:49 | XMS_ITS | Encounter Summary ---
Author Organization [employer] Address [address] [place] [address] 7 [place] [address] Care Team Providers Care Accounting File Clerk Name Role Phone Charito Lawrence Yue [facility] Primary Care Provider Tammi Downs MD Primary Care Pro vider Encounter Details Date Type Department Care Team (Late st Contact Info) Description 03/31/2023 Abstract [facility] [address] [place] [address] Jamey Hussein, DMD [address] [place] [address] Social History Tobacco Use Types Packs/Day Years [...] Description 06/29/2025 9:30 AM EST Office Visit [facility] [address] [place] [address] Tammi Burgess MD [address] [place] [address] documented as of this encounter Visit Diagnoses Not on filedocumented in this encounter Care Teams Accounting File Clerk Relationship Specialty Start Date End Date Charito Lawrence FNP PCP - General Family Medicine 05/17/21 04/12/23 Tammi Burgess MD [address] [place] [address] PCP - General Internal Medicine 04/13/23 documented as of this encounter
--- OUTSIDE RECORDS SUMMARY | 2025-04-27 14:49 | XMS_ITS | Encounter Summary ---
Author Organization [employer] Address [address] [facility] 7t [place] [address] Care Team Providers Care Edge Polisher Name Role Phone Tammi Burgess MD Primary Care Pro vider Encounter Details Date Type Department Care Team (Late st Contact Info) Description 08/06/2023 Orders Only [facility] [address] [place], [place] [phone] Judy Prieto MD [address] [place], [place] [phone] Acute pain of right knee (Primary Dx); [...] Description 06/29/2025 9:30 AM EST Office Visit [facility] [address] [place] [phone] Tammi Burgess MD [address] [place] [address] documented as of this encounter Visit Diagnoses Diagnosis Acute pain of right knee- Primary Effusion of right knee Dislocation of right knee with medial meniscus tear, initial encounter documented in this encounter Additional Health Concerns Assessment Noted Time PHQ-9 Depression Total Score: 0 07/23/20 11:15 AM EST documented as of this encounter Care Teams Edge Polisher Relationship Specialty Start Date End Date Tammi Burgess MD [address] [place] [phone] PCP - General Internal Medicine 04/13/23 documented as of this encounter
--- OUTSIDE RECORDS SUMMARY | 2025-04-27 14:49 | XMS_ITS | Encounter Summary ---
Author Organization [employer] Address [address] [facility] 7t [place] [address] Care Team Providers Care Press Worker Helper Name Role Phone Tammi Burgess MD Primary Care Pro vider Encounter Details Date Type Department Care Team ([facility] st Contact Info) Description 07/18/2024 Orders Only [facility] [address] [place] [address] ProviderChata MD Social History Tobacco Use Types [...] 1:55 PM EST Pelvic US ordered by COMMUNITY PRODUCT SPECIALIST. Patient to fu results with COMMUNITY PRODUCT SPECIALIST (Dr Espinoza). documented in this encounter Plan of Treatment Upcoming Encounters Date Type Department Care Team (Late st Contact Info) Description 06/29/2025 9:30 AM EST Office Visit [facility] [address] [place] [address] Tammi Burgess MD [address] [place] [address] documented as of this encounter Procedures Procedure [...] PM EST Narrative 08/09/2024 10:56 AM EST [address] [address] Magnetic Resonance Report Signed Patient: Karen Og MR#: [id number] [birth year] : 1970 Acct:[id number] Age/Sex: 54 / F ADM Date: 08/07/24 Loc: HO.MRI Attending Dr: Keyon Bowles MD Ordering Physician: Keyon Bowles MD Date of Service: 08/07/24 Procedure(s): MR knee LT wo con Accession Number(s): [id number] cc: Tammi Burgess MD; Keyon Bowles MD [...] 08/09/24 1053 DD/ 1458 TD/TT: 08/07/24 1507 Buttonholer: Procedure Note Donotuseinterpreter, Image - 08/09/[address] [address] Magnetic Resonance Report Signed Patient: Karen Og MMR#: [id number] 4 : 1970Acct:[id number] Age/Sex: 54 / FADM Date: 08/07/24 Loc: HO.MRI Attending Dr: Keyon Bowles MD Ordering Physician: Keyon Bowles MD Date of Service: 08/07/24 Procedure(s): MR knee LT wo con Accession Number(s): [id number] cc: Tammi Burgess MD; Keyon Bowles MD [...] 08/09/24 1053 DD/ 1458 TD/TT: 08/07/24 1507 Buttonholer: us [facility] External Provider IMG MRI PROCEDURES Final Result * US Pelvis Transvaginal (08/02/2024 4:26 PM EST) Anatomical Region Laterality Modality Pelvis Ultrasound 08/02/2024 4:26 PM EST Narrative 08/02/2024 4:27 PM EST [place] [address] Ultrasound Report Signed Patient: Karen Og MR#: [id number] 4 : 1970 Acct:[id number] Age/Sex: 54 / F ADM Date: 08/01/24 Loc: .US Attending Dr: Juan Espinoza MD Ordering Physician: Juan Espinoza MD Date of Service: 08/01/24 Procedure(s): US pelvic and transvaginal Accession Number(s): [id number] cc: Tammi Burgess MD; Juan Espinoza MD CLINICAL HISTORY: D25.9 - Leiomyoma of uterus, unspecified US pelvis transabdominal and transvaginal Comparison: US/DE/SR - US PELVIC AND TRANSVAGINAL - 09/28/23 [...] 08/02/24 1626 DD/ 1626 TD/TT: 08/02/24 162 Buttonholer: Procedure Note Donotuseinterpreter, Image - 08/02/2024 [place] [address] Ultrasound Report Signed Patient: Karen Og MMR#: [id number] 4 : 1970Acct:[id number] Age/Sex: 54 / FADM Date: 08/01/24 Loc: HO.US Attending Dr: Juan Espinoza MD Ordering Physician: Juan Espinoza MD Date of Service: 08/01/24 Procedure(s): US pelvic and transvaginal Accession Number(s): [id number] cc: Tammi Burgess MD; Juan Espinoza MD CLINICAL HISTORY: D25.9 - Leiomyoma of uterus, unspecified US pelvis transabdominal and transvaginal Comparison: US/DE/SR - US PELVIC AND TRANSVAGINAL - 09/28/23 [...] OV> 08/02/241625 DD/ 1626 TD/TT: 08/02/24 162 Buttonholer: [facility] External Provider IMG US PROCEDURES Final Result * Hm Colonoscopy (05/28/2022 1:55 PM EDT) Historical Provider HEALTH MAINTENANCE Final Result documented in this encounter Visit Diagnoses Not on filedocumented in this encounter Additional Health Concerns Assessment Noted Time PHQ-9 Depression Total Score: 5 10/20/19 24 10:39 AM EDT documented as of this encounter Care Teams Press Worker Helper Relationship Specialty Start Date End Date Tammi Burgess MD [address] [place] [phone] PCP - General Internal Medicine 04/13/23 documented as of this encounter
--- OUTSIDE RECORDS SUMMARY | 2025-04-27 14:49 | XMS_ITS | Encounter Summary ---
Author Organization [employer] [facility] Address [address] [place] [address] 7 [place] [address] Care Team Providers Care Cement Sprayer Helper Name Role Phone Charito Lawrence Primary Care Provider Tammi Downs MD Primary Care Pro vider Encounter Details Date Type Department Care Team (Latest Contact Info) Description 07/29/2018 Abstract [facility] CON[facility] Dental, Provider, DDS Social History [...] Description 06/29/2025 9:30 AM EST Office Visit [facility] [address] [place] [address] Tammi Burgess MD [address] [place] [address] documented as of this encounter Visit Diagnoses Not on filedocumented in this encounter Care Teams Cement Sprayer Helper Relationship Specialty Start Date End Date Charito Lawrence FNP PCP - General Family Medicine 05/17/21 04/12/23 Tammi Burgess MD [address] [place], [place] [phone] PCP - General Internal Medicine 04/13/23 documented as of this encounter
--- OUTSIDE RECORDS SUMMARY | 2025-04-27 14:49 | XMS_ITS | Encounter Summary ---
Author Organization [employer] Address [address] [facility] 7t [place] [address] Care Team Providers Care Oracle Fusion Middleware Developer Name Role Phone Tammi Burgess MD Primary Care Pro vider Encounter Details Date Type Department Care Team (Latest Contact Info) Description 03/09/2025 Results Follow-Up [facility] [address] [place] [address] Tammi Burgess MD [address] [place] [address] BI Mammogram Screening Tomosynthesis Bilateral Social History [...] Miscellaneous Notes * Result Encounter Note - Tmami Sorenson MD - 03/09/2025 9:01 AM EDT Please inform pt of normal mammogram result thanks documented in this encounter Plan of Treatment Upcoming Encounters Date Type Department Care Team (Late st Contact Info) Description 06/29/2025 9:30 AM EST Office Visit [facility] [address] [place] [address] Tammi Burgess MD [address] [place] [phone] documented as of this encounter Visit Diagnoses Not on filedocumented in this encounter Additional Health Concerns Assessment Noted Time PHQ-9 Depression Total Score: 8 12/27/19 25 3:12 PM EDT documented as of this encounter Care Teams [employer] Fusion Middleware Developer Relationship Specialty Start Date End Date Tammi Burgess MD [address] [place] [address] PCP - General Internal Medicine 04/13/23 documented as of this encounter
--- OUTSIDE RECORDS SUMMARY | 2025-04-27 14:49 | XMS_ITS | Encounter Summary ---
Author Organization [employer] Address [address] [facility] 7t [place] [address] Care Team Providers Care Data Warehousing Specialist Name Role Phone Tammi Burgess MD Primary Care Pro vider Reason for Visit * Reason Comments Med Refill Encounter Details Date Type Department Care Team (Late st Contact Info) Description 08/11/2024 Refill [facility] [address] [place] [address] Tammi Burgess MD [address] [place], [place] [phone] Social History Tobacco Use Types Packs/Day Years [...] Description 06/29/2025 9:30 AM EST Office Visit [facility] [address] [place] [address] Tammi Burgess MD [address] [place] [address] documented as of this encounter Visit Diagnoses Not on filedocumented in this encounter Additional Health Concerns Assessment Noted Time PHQ-9 Depression Total Score: 5 10/20/19 24 10:39 AM EDT documented as of this encounter Care Teams Data Warehousing Specialist Relationship Specialty Start Date End Date Tammi Burgess MD [address] [place] [address] PCP - General Internal Medicine 04/13/23 documented as of this encounter
--- OUTSIDE RECORDS SUMMARY | 2025-04-27 14:49 | XMS_ITS | Encounter Summary ---
Author Organization [facility] Address [address] [facility] [address] [place] [address] Phone Care Team Providers Care Hospital Staff Pharmacist Name Role Phone Popeye Vera FINISHING AREA OPERATOR Primary Care Provider [phone] Encounter Details Date Type Department Care Team (Late st Contact Info) Description 12/17/2018 Ancillary Orders [facility] [address] [place] [address] [place] [address] Fab Berry DO [address] [place] [address] Palpitations Social History Tobacco Use Types Packs/Day [...] Palpitations documented in this encounter Care Teams Hospital Staff Pharmacist Relationship Specialty Start Date End Date Popeye Vera NP [address] [place] [address] PCP - General 12/16/18 documented as of this encounter Additional Source Comments The information contained in this document represents components of the legal health record. It is not the complete legal health record.[facility]
--- OUTSIDE RECORDS SUMMARY | 2025-04-27 14:49 | XMS_ITS | Clinical Summary ---
Author Organization [employer] Address [address] [place] [address] 7[address] [place] [address] Care Team Providers Care Outreach Director Name Role Phone Tammi Burgess MD [...] cancer: Never smoker Eye: 02/2023 WNL at [facility] Dental: up to date Hernia of [...] and depressive disorder 08/18/2013 Backache 03/16/2013 Seizure (CMS/HCC) 02/16/2013 Overview (04/29/2023): Neurology appt 06/04/22 No [...] Description 04/17/2025 1:40 PM EDT Office Visit [facility] [address] [place] [phone] Kristal San ANP Rash (Primary Dx) 04/17/2025 Travel 04/14/2025 Results Follow-Up [facility] [address] [place] [phone] Shravan Dunne MD Leukocytes Stool Qualitative, Stool - Gastrointestinal panel, CBC auto differential, Comprehensive Metabolic Panel 04/12/2025 Orders Only [facility] [address] [place] [phone] Shravan Dunne MD 04/11/2025 7:20 PM EDT Office Visit [facility] [address] [place] [phone] Shravan Dunne MD Epigastric pain (Primary Dx) 04/11/2025 Travel 04/04/2025 Refill [facility] [address] [place], [place] [phone] Tammi Burgess MD 03/10/2025 Refill [facility] [address] [place] [phone] Tammi Burgess MD Low back pain associated with a spinal disorder other than radiculopathy or spinal stenosis 03/10/2025 Telephone [facility] [place] [address] Tammi Burgess MD Results 03/09/2025 Results Follow-Up [facility] [address] [place] [address] Tammi Burgess MD BI Mammogram Screening Tomosynthesis Bilateral 03/02/2025 1:30 PM EDT Office Visit [facility] [address] [place] [address] Tammi Burgess MD Hyperlipidemia, unspecified hyperlipidemia type (Primary Dx); Uterine leiomyoma, unspecified location; Health care maintenance; Mixed anxiety and depressive disorder; Fibromyositis; Tremor of both hands; Onychomycosis 03/02/2025 Travel 02/06/2025 9:30 AM EDT Clinical Support [address] [place] [place] [address] Rashmi Horne RN Memory loss 02/06/2025 Orders Only [address] [place] [address] Tammi Burgess MD 02/06/2025 Travel from Last 3 Months Immunizations Immunization Administration [...] Description 06/29/2025 9:30 AM EST Office Visit [facility] [address] [place], [place] [phone] Tammi Burgess MD [address] [place] [address] Health Maintenance Due Date Last Done Comments [...] 01/11/2021, Additional history exists Mammogram 02/27/2027 02/27/2025, 08/0 08/2023, 11/02/2018 Colonoscopy 05/28/2029 05/28/2022 Colorectal Cancer [...] Procedure Name Priority Date/Time Associated Diagnosis Comments FL ESOPHAGUS BARIUM SWALLOW WITH AIR Routine 04/18/2025 9:40 AM EDT LEUKOCYTES STOOL QUALITATIVE Routine 04/13/2025 10:00 AM [...] 02/06/2025 10:04 AM EDT Annual physical exam PROPHYLAXIS - ADULT Routine 12/21/2024 3 :00 PM EDT Dental plaque Localized gingival recession Missing teeth, acquired PERIODIC ORAL EVALUATION - ESTABLISHED PATIENT Routine 03/17/2024 3:00 PM EDT Secondary dental caries associated with failed or defective dental holiness Full coverage crown needed for root canal-treated tooth BITEWINGS - 4 RADIOGRAPHIC IMAGES Routine 12/15/2023 3:00 PM EDT Dental calculus Localized gingival recession INTRAORAL - COMPLETE SERIES OF RADIOGRAPHIC IMAGES Routine 02/19/2023 2:30 PM EDT Dental caries HM COLONOSCOPY Routine 05/28/2022 1:55 PM EDT ZZZ HISTORICAL HPV E6/E7 RFLX JACOB 16 Routine 08/15/2021 1:40 PM EST THINPREP PAP Routine 01/11/2021 11:51 AM EDT from Last 3 Months or Most Recently Relevant to Health Maintenance Results * FL Esophagus Barium Swallow w/Air (04/18/2025 9:40 AM EDT) Anatomical Region Laterality Modality Head, Neck Radiographic Rachel ging 04/18/2025 9:40 AM EDT Narrative 04/18/2025 11:37 AM EDT [place] [address] Fluoroscopy Report Signed Patient: Karen Og MR#: [id number] 4 : 1970 Acct:[id number] Age/Sex: 54 / F ADM Date: 04/18/25 Loc: JAJA Attending Dr: Tammi Sorenson MD Ordering Physician: Tammi Burgess MD Date of Service: 04/18/25 Procedure(s): FL barium swallow with air Accession Number(s): [id number] cc: Tammi Burgess MD Reason for Exam: difficult ywith swallowing EXAMINATION: XR FLUOROSCOPY BARIUM SWALLOW CLINICAL INFORMATION: Dysphagia COMPARISON: None TECHNIQUE: Fluoroscopic air contrast barium swallow examination was performed utilizing standard techniques with thin and thick barium and effervescent granules. Numerous spot images were obtained. Several fluoroscopic image hold cine sequences were also obtained. FINDINGS: BARIUM SWALLOW: Lateral cine images of the oropharynx and hypopharynx demonstrate normal swallow mechanism with normal epiglottic inversion and soft palate elevation. No laryngeal penetration, glottic or subglottic aspiration identified. No nasopharyngeal reflux present. Hypopharyngeal structures appear normal without evidence of mass or diverticulum. There was no significant cricopharyngeal achalasia. Dual and single contrast images of the esophagus demonstrate normal caliber, contour, and mucosal pattern. No evidence of stricture, mass, or ulcerations identified. Esophageal peristalsis was mildly disordered. No evidence of hiatus hernia identified. Gastroesophageal reflux was identified during the examination to the level of the aortic arch. Dual contrast and single contrast images of the stomach demonstrated normal contour and mucosal pattern without evidence of mass, ulceration, or other abnormality. Contrast freely passed into the gastric antrum and duodenal bulb without delay. Cholecystectomy clips are incidentally noted. FLUOROSCOPY TIME: 2 minutes, 17 seconds Number of Spot Images:7 Number of cines obtained: 9 DOSE AREA PRODUCT: 1885 uGy-m2 (microgray-meter squared) FL/FL barium swallow with air IMPRESSION: 1. Gastroesophageal reflux identified to the level of the aortic arch. 2. Mildly disordered esophageal peristalsis. 3. Otherwise normal barium swallow examination. Electronically signed by: Garett Perez MD 04/18/2025 11:34 AM EDT Dictated By: Garett Perez MD Signed By: <Electronically signed by Garett Perez MD in OV> 04/18/25 1134 DD/ 0940 TD/TT: 04/18/25 0949 Veterinary Poultry Inspector: Procedure Note Donotuseinterpreter, Image - 04/18/[address] [address] Fluoroscopy Report Signed Patient: Karen Og [facility]#: [id number] 4 : 1970Acct:[id number] Age/Sex: 54 / FADM Date: 04/18/25 Loc: HO.XRAY Attending Dr: Tammi Sorenson MD Ordering Physician: Tammi Burgess MD Date of Service: 04/18/25 Procedure(s): FL barium swallow with air Accession Number(s): [id number] cc: Tammi Burgess MD Reason for Exam: difficult ywith swallowing EXAMINATION: XR FLUOROSCOPY BARIUM SWALLOW CLINICAL INFORMATION: Dysphagia COMPARISON: None TECHNIQUE: Fluoroscopic air contrast barium swallow examination was performed utilizing standard techniques with thin and thick barium and effervescent granules. Numerous spot images were obtained. Several fluoroscopic image hold cine sequences were also obtained. FINDINGS: BARIUM SWALLOW: Lateral cine images of the oropharynx and hypopharynx demonstrate normal swallow mechanism with normal epiglottic inversion and soft palate elevation. No laryngeal penetration, glottic or subglottic aspiration identified. No nasopharyngeal reflux present. Hypopharyngeal structures appear normal without evidence of mass or diverticulum. There was no significant cricopharyngeal achalasia. Dual and single contrast images of the esophagus demonstrate normal caliber, contour, and mucosal pattern. No evidence of stricture, mass, or ulcerations identified. Esophageal peristalsis was mildly disordered. No evidence of hiatus hernia identified. Gastroesophageal reflux was identified during the examination to the level of the aortic arch. Dual contrast and single contrast images of the stomach demonstrated normal contour and mucosal pattern without evidence of mass, ulceration, or other abnormality. Contrast freely passed into the gastric antrum and duodenal bulb without delay. Cholecystectomy clips are incidentally noted. FLUOROSCOPY TIME: 2 minutes, 17 seconds Number of Spot Images:7 Number of cines obtained: 9 DOSE AREA PRODUCT: 1885 uGy-m2 (microgray-meter squared) FL/FL barium swallow with air IMPRESSION: 1. Gastroesophageal reflux identified to the level of the aortic arch. 2. Mildly disordered esophageal peristalsis. 3. Otherwise normal barium swallow examination. Electronically signed by: Garett Perez MD 04/18/2025 11:34 AM EDT Dictated By: Garett Perez MD Signed By: <Electronically signed by Garett Perez MD in OV> 04/18/25 1134 DD/ 0940 TD/TT: 04/18/25 0919 Veterinary Poultry Inspector: us Tammi Sorenson MD IMG FLUOROSCOPY P ROCEDURES Final Result * Leukocytes Stool Qualitative (04/13/2025 10:00 AM EDT) Leukocytes Stool Qualitative NEGATIVE NEGATIVE [facility] Stool 04/13/2025 10:0 0 AM EDT 04/13/2025 4:48 PM EDT Shravan Dunne MD LAB BODY FLUIDS AND STOOLS ORDER JEROMY Final Result [facility] [address] [place] [address] [phone] * Stool - Gastrointestinal panel (04/13/2025 10:00 AM EDT) Pathologist [facility] Campylobacter Not Detected Not Detect. [facility] Plesiomonas shigelloides Not Detected Not Detect. [facility] Salmonella Not Detected Not Detect. [facility] Vibrio Not Detected Not Detect. [facility] Vibrio cholerae Not Detected Not Detect. [facility] YERSINIA ENTEROCOLITICA Not Detected Not Detect. [facility] Enteroaggregative E. coli (EAEC) Not Detected Not Detect. [facility] Enteropathogenic E. coli (EPEC) Not Detected Not Detect. [facility] Enterotoxigenic E. coli (ETEC) lt/st Not Detected Not Detect. [facility] Shiga-like toxin-producing E. coli (STEC) stx1/stx2 Not Detected Not Detect. [facility] E coli O157 Not applicable Not Detect. [facility] Comment:E. coli containing t he O157 antigen are a subset ofShiga-like toxin- producing E. coli (STEC). Shigella/Enteroinvasive E. coli (EIEC) Not Detected Not Detect. [facility] Cryptosporidium Not Detected Not Detect. [facility] Cyclospora cayetanensis Not Detected Not Detect. [facility] Entamoeba histolytica Not Detected Not Detect. [facility] Giardia lamblia Not Detected Not Detect. [facility] Adenovirus F 40/41 Not Detected Not Detect. [facility] Astrovirus Not Detected Not Detect. [facility] Norovirus GI/GII Not Detected Not Detect. [facility] Rotavirus A Not Detected Not Detect. [facility] Sapovirus Not Detected Not Detect. [facility] Comment: All results must be [...] assay is performed by Multiplexed PCR, utilizing Optimal Rad[employer] Film Array. Stool Rectal contents / Unknown 04/13/2025 10:00 AM EDT 04/13/2025 4:48 PM EDT Shravan Dunne MD LAB MICROBIOLOGY - GENERAL ORDER JEROMY Final Result [facility] [address] [place] [phone] [phone] * Helicobacter pylori??Antigen, EIA, Stool (04/13/2025 10:00 AM EDT) H pylori Ag Stool SEE NOTE [facility] Comment:HELICOBACTER PYLORI AG, EIA, STOOL Micro Number: [id number] Test Status: Final Specimen Source: Stool Specimen Quality: Adequate H.pylori Ag: Not Detected Antimicrobials, proton pump inhibitors, and bismuth preparations inhibit H. pylori and ingestion up to two weeks prior to testing may cause false negative results. If clinically indicated the test should be repeated on a new specimen obtained two weeks after discontinuing treatment. Reference Range: Not DetectedTHIS TEST WAS PERFORMED AT:[employer] [place] [id number] BLANCAS MD Stool Rectal contents / Unknown 04/13/2025 10:00 AM EDT 04/13/2025 4:48 PM EDT Shravan Dunne MD LAB BODY FLUIDS AND STOOLS ORDER JEROMY Final Result Performing Organization Address [facility]/ZIP Co de Phone Number [facility] [address] [place] [phone] * Slide Review (04/12/2025 10:09 AM EDT) Slide Review VERIFIED [facility] 04/12/2025 10:0 9 AM EDT 04/12/2025 11:14 AM EDT Shravan Dunne MD LAB BLOOD ORDERABLES Final Resul t Performing Organization Address [facility] de Phone Number [facility] [address] [place] [phone] * (ABNORMAL) CBC auto differential (04/12/2025 10:09 AM EDT) White Blood Count 10.4 4.8 - 10.8 X10*3/uL [facility] Red Blood Count 4.18(L) 4.20 - 5.50 X10*6/uL [facility] Hemoglobin 12.8 12.0 - 16.0 g/dl [facility] Hematocrit 40.0 37.0 - 47.0 % [facility] Mean Corpuscular Volume 95.7 80.0 - 98.0 fL [facility] Mean Corpuscular Hemoglobin 30.6 27.0 - 33.0 pg [facility] Mean Corpuscular HGB Conc 32.0 31.0 - 35.0 g/dl [facility] Red Cell Distribution Width 14.2 11.0 - 16.0 % [facility] Platelet Count 164 160 - 400 X10*3/uL [facility] Mean Platelet Volume 10.1 9.4 - 12.3 fL [facility] Neutrophils Percent Auto 36.0(L) 45 - 73 % [facility] Imm Gran Pct Auto 1.3(H) 0.0 - 0.4 % [facility] Lymphocytes Percent Auto 20.1 20 - 40 % [facility] Monocytes Percent Auto 7.0 2 - 11 % [facility] Eosinophils Percent Auto 34.7(H) 0 - 4 % [facility] Basophils Percent Auto 0.9 0 - 2 % [facility] NRBC Pct Auto 0.0 0.0 - 0.2 /100WBC [facility] Neutrophils Absolute Auto 3.8 2.0 - 8.3 x10*3/uL [facility] Imm Gran Abs Auto 0.14(H) 0.00 - 0.03 X10*3/uL [facility] Lymphocytes Absolute Auto 2.1 1.2 - 4.9 X10*3/uL [facility] Monocytes Absolute Auto 0.7 0.1 - 1.2 X10*3/uL [facility] Eosinophils Absolute Auto 3.6(H) 0.0 - 0.4 X10*3/uL [facility] Basophils Absolute Auto 0.1 0.0 - 0.2 X10*3/uL [facility] NRBC Abs Auto 0.000 0.0 - 0.012 X10*3/uL [facility] Blood Venous blood specimen / Unknown 04/12/2025 10:09 AM EDT 04/12/2025 11:14 AM EDT us Shravan Dunne MD LAB BLOOD ORDERABLES Edited Resu lt - Final [facility] [address] [place] [phone] * (ABNORMAL) Comprehensive Metabolic Panel (04/12/2025 10:09 AM EDT) Only the most recent of2 resultswithin the time period is included. Sodium 141 135 - 145 mmol/L [facility] Potassium 4.5 3.3 - 5.1 mmol/L [facility] Chloride 104 96 - 108 mmol/L [facility] Carbon Dioxide 30(H) 22 - 29 mmol/L [facility] Anion Gap 12 12 - 20 [facility] Urea Nitrogen (BUN) 15 9 - 16 mg/dL [facility] Creatinine, Serum 0.69 0.5 - 1.4 mg/dL [facility] Estimated Glomerular Filt Rate >60 [facility] Comment:Chronic Kidney Disea se: Estimated GFR < 60 mL/min/1.07l6Puqpqh Kidney Disease: Estimated GFR < 15 mL/min/1.73m2 Glucose 93 60 - 115 mg/dL [facility] Calcium 9.2 8.4 - 10.2 mg/dL [facility] Bilirubin, Total 0.3 0.0 - 1.0 mg/dL [facility] Aspartate Amino Transferase 23 5 - 31 U/L [facility] Alanine Aminotransferase 11 0 - 31 U/L [facility] Total Protein 6.9 6.5 - 8.0 g/dL [facility] Albumin Level 3.8 3.5 - 5.0 g/dL [facility] Alkaline Phosphatase 66 39 - 117 U/L [facility] Blood Venous blood specimen / Unknown 04/12/2025 10:09 AM EDT 04/12/2025 11:14 AM EDT us Shravan Dunne MD LAB BLOOD ORDERABLES Final Resul t [facility] [address] [place] [address] [phone] * US Pelvis Transvaginal (02/27/2025 4:30 PM EDT) Anatomical Region Laterality Modality Pelvis Ultrasound 02/27/2025 4:30 PM EDT Narrative 02/27/2025 5:46 PM EDT [address] [address] Ultrasound Report Signed Patient: Karen Og MR#: [id number] 4 : 1970 Acct:[id number] Age/Sex: 54 / F ADM Date: 02/27/25 Loc: HO.US Attending Dr: Juan Espinoza MD Ordering Physician: Juan Espinoza MD Date of Service: 02/27/25 Procedure(s): US pelvic and transvaginal Accession Number(s): [id number] cc: Tammi Burgess MD; Juan Espinoza MD [...] 02/27/25 1743 DD/ 1630 TD/TT: 02/27/25 1645 Veterinary Poultry Inspector: Procedure Note Donotuseinterpreter, Image - 02/27/2025 [place] [address] Ultrasound Report Signed Patient: Karen Og MMR#: [id number] 4 : 1970Acct:[id number] Age/Sex: 54 / FADM Date: 02/27/25 Loc: HO.US Attending Dr: Juan Espinoza MD Ordering Physician: Juan Espinoza MD Date of Service: 02/27/25 Procedure(s): US pelvic and transvaginal Accession Number(s): [id number] cc: Tammi Burgess MD; Juan Espinoza MD [...] 02/27/25 1743 DD/ 1630 TD/TT: 02/27/25 1645 Veterinary Poultry Inspector: [facility] External Provider IMG US PROCEDURES Final Result * BI Mammogram Screening Tomosynthesis Bilateral (02/27/2025 2:00 PM EDT) Anatomical Region Laterality Modality Breast Bilateral Mammography 02/27/2025 2:00 PM EDT Narrative 03/09/2025 8:24 AM EDT [facility] [address] [place] [address] Mammography Report Signed Patient: Karen Og MR#: [id number] [birth year] : 1970 Acct:[id number] Age/Sex: 54 / F ADM Date: 02/27/25 Loc: HO.MAMMO Attending Dr: Tammi Sorenson MD Ordering Physician: Tammi Burgess MD Re sults: 1Negative Date of Service: 02/27/25 Follow Up: 1 Year From Orig inal Mammogram Procedure(s): MM tomosynthesis screening BI Accession Number(s): [id number] cc: Tammi Burgess MD EXAMINATION: MM SCREENING [...] 03/09/25 0821 DD/ 1400 TD/TT: 02/27/25 1412 Veterinary Poultry Inspector: Procedure Note Donotuseinterpreter, Image - 03/09/2025 [facility] [address] [place] [address] Mammography Report Signed Patient: Karen Og [facility]#: [id number] 4 : 1970Acct:[id number] Age/Sex: 54 / FADM Date: 02/27/25 Loc: MELISAO Attending Dr: Tammi Sorenson MD Ordering Physician: Tammi Burgess sults: 1Negative Date of Service: 02/27/25Follow Up: 1 Year From Orig inal Mammogram Procedure(s): MM tomosynthesis screening BI Accession Number(s): [id number] cc: Tammi Burgess MD EXAMINATION: MM SCREENING [...] 03/09/25 0821 DD/ 1400 TD/TT: 02/27/25 1412 Veterinary Poultry Inspector: Tammi Sorenson MD IMG BI PROCEDURES Final Result * Chlamydia/Trichomonas/Neisseria gonorrhoeae, PCR, Urine (02/06/2025 10:04 AM EDT) CT PCR, Urine NOT DETECTED Not Detect. [facility] Comment:A not detected test result [...] NG PCR, Urine NOT DETECTED Not Detect. [facility] Comment:A not detected test result [...] ORDERAB LES Final Result Performing Organization Address [facility]/ZIP Co de Phone Number [facility] [address] [place] [phone] * Syphilis Screen (02/06/2025 10:04 AM EDT) Pathologist [facility] Syphilis Screen Nonreactive Nonreactive [facility] Blood 02/06/2025 10:0 4 AM EDT 02/06/2025 11:11 AM EDT Tammi Sorenson MD LAB BLOOD ORDERAB LES Final Result Performing Organization Address [facility] Co de Phone Number [facility] [address] [place] [phone] * Vitamin B12 (Cobalamin) and Folate Panel, Serum (02/06/2025 10:04 AM EDT) Vitamin B12 645 200 - 900 pg/mL [facility] Comment:NORMAL 200-900 PG/ML INDETERMINATE 160-199 PG/ML DEFICIENT < 160 PG/ML Folate 15.9 > or = 4.0 ng/mL [facility] Comment:Reference Values:> o r = 4.0 ng/mL< 4.0 ng/mL suggests folate deficiency Methotrexate, aminopterin and folinic acid(leucovorin) are chemotherapeutic agents whose molecularstructures are similar to folate; therefore, the Architectfolate assay cannot be used for patients using these drugs. Blood 02/06/2025 10:0 4 AM EDT 02/06/2025 11:11 AM EDT us Tammi Sorenson MD LAB BLOOD ORDERAB LES Final Result Performing Organization Address [facility]/ZIP Co de Phone Number [facility] [address] [place] [phone] * TSH with Reflex to Free T4 (02/06/2025 10:04 AM EDT) TSH reflex Free T4 2.27 0.32 - 4.0 uIU/mL [facility] Blood 02/06/2025 10:0 4 AM EDT 02/06/2025 11:11 AM EDT Tammi Sorenson MD LAB BLOOD ORDERAB LES Final Result Performing Organization Address [facility] Co de Phone Number [facility] [address] [place] [phone] * Hepatitis C Antibody with Reflex to HCV, RNA, Quantitative, Real-Time PCR (02/06/2025 10:04 AM EDT) Hepatitis C Antibody Nonreactive Nonreactive [facility] Comment:Antibodies to HCV no t detected; does not exclude early acuteHCV infection. Blood Venous blood specimen / Unknown 02/06/2025 10:04 AM EDT 02/06/2025 11:11 AM EDT Tammi Sorenson MD LAB BLOOD ORDERAB LES Final Result Performing Organization Address City/[facility]/ZIP Co de Phone Number [facility] [address] [place] [phone] * Hepatitis B surface antigen, EIA (02/06/2025 10:04 AM EDT) Pathologist [facility] Hepatitis B Surface Ag Negative Negative [facility] Blood Venous blood specimen / Unknown 02/06/2025 10:04 AM EDT 02/06/2025 11:11 AM EDT us Tammi Sorenson MD LAB BLOOD ORDERAB LES Final Result Performing Organization Address [facility]/State/ZIP Co de Phone Number [facility] [address] [place] [phone] * HIV-1/2 Antigen and Antibodies, Fourth Generation, with Reflexes (02/06/2025 10:04 AM EDT) [facility] HIV AB/AG Nonreactive Nonreactive [facility] Comment:HIV-1 p24 Ag and/or HIV-1/HIV-2 Ab not detected.A test result that is nonreactive does not exclude thepossibility of exposure to or infection with HIV-1 and/orHIV-2. Nonreactive results in this assay for individualswith prior exposure to HIV-1 and/or HIV-2 may be due toantigen and antibody levels that are below the limit ofdetection of this assay.The [employer] HIV Ag/Ab Combo assay result andsupplemental assay results should be interpreted inconjunction with the patient's clinical presentation,history and other laboratory results. If the results areinconsistent with clinical evidence, additional testing issuggested to confirm the result. Blood Venous blood specimen / Unknown 02/06/2025 10:04 AM EDT 02/06/2025 11:11 AM EDT us Tammi Sorenson MD LAB BLOOD ORDERAB LES Final Result [facility] [address] [place] [phone] * CBC (02/06/2025 10:04 AM EDT) White Blood Count 5.7 4.8 - 10.8 X10*3/uL [facility] Red Blood Count 4.51 4.20 - 5.50 X10*6/uL [facility] Hemoglobin 14.1 12.0 - 16.0 g/dl [facility] Hematocrit 43.3 37.0 - 47.0 % [facility] Mean Corpuscular Volume 96.0 80.0 - 98.0 fL [facility] Mean Corpuscular Hemoglobin 31.3 27.0 - 33.0 pg [facility] Mean Corpuscular HGB Conc 32.6 31.0 - 35.0 g/dl [facility] Red Cell Distribution Width 13.8 11.0 - 16.0 % [facility] Platelet Count 223 160 - 400 X10*3/uL [facility] Mean Platelet Volume 9.9 9.4 - 12.3 [facility] NRBC Pct Auto 0.0 0.0 - 0.2 /100WBC [facility] NRBC Abs Auto 0.000 0.0 - 0.012 X10*3/uL [facility] Blood Venous blood specimen / Unknown 02/06/2025 10:04 AM EDT 02/06/2025 11:11 AM EDT us Tammi Sorenson MD LAB BLOOD ORDERAB LES Final Result [facility] [address] [place] [phone] * Hemoglobin A1c (02/06/2025 10:04 AM EDT) Hemoglobin A1c 5.5 <6.0 % [facility] Comment:Hemoglobin A1C Refer ence Range Adults: 4.8 - 6.0 % Non diabetic: < 6.0 % Goal: < 7.0 %Additional Action Suggested: > 8.0 %Note: Hemoglobin A1c results are invalid for patients with abnormal amounts of HbF. Blood transfusions may impact the HbA1c concentration in the patient sample. Estimated Average Glucose 111 mg/dL [facility] Comment:eAG = Estimated ave rage glucose which is %A1C expressed asaverage glucose, using the formula of the I6X-EdqrgxlVarseby Glucose study (ADAG), Diabetes Care, Vol.31,#8,Feb. 2007 Blood Venous blood specimen / Unknown 02/06/2025 10:04 AM EDT 02/06/2025 11:11 AM EDT us Tammi Sorenson MD LAB BLOOD ORDERAB LES Final Result [facility] [address] [place] [phone] * (ABNORMAL) Lipid Panel, Standard (02/06/2025 10:04 AM EDT) Triglycerides 176(H) <150 mg/dL [facility] Comment:Desirable Triglyceri de: less than 150 mg/dLBorderline High Triglyceride 150-199 mg/dLHigh Triglyceride: 200-499 mg/dLVery High Triglyceride: greater than or equal to 5OO mg/dL Cholesterol 251(H) <200 mg/dL [facility] Comment:Desirable Cholestero l: less than 200 mg/dLBorderline High Cholesterol: 200-239 mg/dLHigh Cholesterol: greater than 239 mg/dL LDL Cholesterol Calculated 152(H) <100 mg/dL [facility] Comment:Desirable LDL: less than 100 mg/dLNear Optimal/Above Optimal LDL: 110- 129 mg/dLBorderline High LDL: 130-159 mg/dLHigh LDL: 160-189 mg/dLVery High LDL: greater than or equal to 190 mg/dL HDL Cholesterol 64 >40 mg/dL [facility] Comment:Desirable HDL: great er than 40 mg/dL Note: This HDL assay may give artificially low results in patients with liver disease. Blood Venous blood specimen / Unknown 02/06/2025 10:04 AM EDT 02/06/2025 11:11 AM EDT Tammi Sorenson MD LAB BLOOD ORDERAB LES Final Result [facility] [address] [place] [phone] [phone] * Hm Colonoscopy (05/28/2022 1:55 PM EDT) Historical Provider HEALTH MAINTENANCE Final Result * HPV E6/E7 RFLX JACOB 16 18/45 (08/15/2021 1:40 PM EST) HPV 16 RNA [facility]NP [facility] HPV 18/45 RNA [facility] HPV E6 E7 ADD [facility] HPV mRNA E6/E7 rflx Not Detected Not Detected [facility] Comment: Methodology: Life Sciences Manager-Mediated Amplification This assay detects E6/E7 viral messenger RNA (mRNA) from 14 high-risk HPV types (16,18,31,33,35,39,45,51,52,56,58,59,66,68). The analytical performance characteristics of this assay have been determined by [employer]. The modifications have not been cleared or approved by the FDA. This assay has been validated pursuant to the CLIA regulations and is used for clinical purposes. For additional information, please refer to http://education.Qudini/faq/YUD095l9 (This link if provided for information/ educational purposes only.) THIS TEST WAS PERFORMED AT: [employer] [address] [place] [address],[place] [address] AMY BLANCAS MD 08/15/2021 1:40 PM EST Historical Provider HISTORICAL/NON ORDERABLE LABS Final Result [facility] [address] * THINPREP PAP (01/11/2021 11:51 AM [...] along with historic and current clinical information. Set Designer : SEE COMMENT [facility] Comment: GSG, CT(ASCP) CT screening location: [place] [address] Interpretation/R esult: Negative for intraepithelial lesion or malignancy. [facility] LMP: NONE GIVEN [facility] Prev. BX: NONE GIVEN [facility] Prev. PAP: NONE GIVEN [facility] SOURCE: None given [facility] Statement Of Adequacy: SEE COMMENT [facility] Comment: Satisfactory for evaluation. Endocervical/transformation zone component present. 01/11/2021 11:5 1 AM EDT us Historical Provider MD LAB PATHOLOGY ORDERABLES Final Result [facility] [address] from Last 3 Months or Most Recently Relevant to Health Maintenance Insurance [facility] C[facility] [place] STAND ADULT DENTAL - HSN FULL (MEDICAID) Care Teams Outreach Director Relationship Specialty Start Date End Date Tammi Burgess MD [address] [place] [address] PCP - General Internal Medicine 04/13/23
--- OUTSIDE RECORDS SUMMARY | 2025-04-27 14:49 | XMS_ITS | Encounter Summary ---
Author Organization [employer] Address [address] [place] [address] 7 [place] [address] Care Team Providers Care Road Sign Installer Name Role Phone Tammi Burgess MD Primary Care Pro vider Reason for Referral * Consultation (Routine) - Closed Specialty Diagnoses / Procedures Referred By Contac t Referred To Contact Orthopaedic Surgery Diagnoses Knee pain, unspecified chronicity, unspecified laterality Tammi Burgess MD [address] [place] [address] Phone: tel: fax: [facility] Orthopedics [address] [place] [address] Phone: tel: Referral ID Status Reason Start Date Expiration Date V isits Requested Visits Authorized [id number] Closed Specialty Services Required 11/24/2024 11/24/2025 6 6 Encounter Details Date Type Department Care Team (Late st Contact Info) Description 12/07/2024 Orders Only [facility] [address] [place] [phone] Tammi Burgess MD [address] [place], [place] [phone] Knee pain, unspecified chronicity, unspecified laterality (Primary [...] Description 06/29/2025 9:30 AM EST Office Visit [facility] [address] [place] [address] Tammi Burgess MD [address] [place] [address] Scheduled Referrals Name Type Priority Associated Diagnoses [...] documented as of this encounter Care Teams Road Sign Installer Relationship Specialty Start Date End Date Tammi Burgess MD [address] [place] [id number] PCP - General Internal Medicine 04/13/23 documented as of this encounter
--- OUTSIDE RECORDS SUMMARY | 2025-04-27 14:49 | XMS_ITS | Clinical Summary ---
Author Organization [facility] Address [address] [place] [address] [place] [phone] Phone Care Team Providers Care Dry House Worker Name Role Phone Popeye Vera NP Primary Care Provider [phone] Social History Tobacco Use Types Packs/Day Years [...] [employer] NON NSPG PCP [facility] [place] [phone] Care Teams Dry House Worker Relationship Specialty Start Date End Date Popeye Vera NP [address] [place] [address] PCP - General 12/16/18 Additional Source Comments The information contained in this document represents components of the legal health record. It is not the complete legal health record.[facility]
--- OUTSIDE RECORDS SUMMARY | 2025-04-27 14:49 | XMS_ITS | Encounter Summary ---
Author Organization [employer] Address [address] [place] [address] 7 [place] [address] Care Team Providers Care Business Office Specialist Name Role Phone Tammi Burgess MD Primary Care Pro vider Reason for Visit * Reason Onset Date Comments Nurse Triage 07/16/2023 Encounter Details Date Type Department Care Team ([facility] st Contact Info) Description 07/16/[address] [facility] [address] [place] [address] Tammi Burgess MD [address] [place] [address] Nurse Triage Social History Tobacco Use Types [...] 07/16/2023 4:32 PM EST Triage call with [employer] Manager ID [id number] Pt requests for Pt to speak for Pt. Pt has acute right knee pain. Pt has been seen in [facility] 07/09/23. Pt was prescribed tylenol 500mg, brace, voltaren gel and xrays. Xrays have been done. Pt isasking what xray results are proposal lead writer advised that there is evidence of [...] AM EST Office Visit [facility] [address] [place] [address] Tammi Burgess MD [address] [place], [place] [phone] documented as of this encounter Visit Diagnoses Not on filedocumented in this encounter Care Teams Business Office Specialist Relationship Specialty Start Date End Date Tammi Burgess MD [address] [place] [phone] PCP - General Internal Medicine 04/13/23 documented as of this encounter
== END 2025-04-27 13:42 | disposition home or self-care (01) ==
LOC: HO.HOS 13:21
PROVIDERS: PCP Student in an Organized Health Care Education/Training Program; Visit Provider Orthopaedic Surgery
DX: M17.11 Unilateral primary osteoarthritis, right knee (principal)
CPT/HCPCS: 99213

== ENCOUNTER → 2025-04-27 13:20 | Outpatient (BNVA) | payer MEDICAID, SELFPAY | PROVIDERS: PCP Student in an Organized Health Care Education/Training Program; Visit Provider Orthopaedic Surgery | DX: M17.11 Unilateral primary osteoarthritis, right knee (principal); M25.561 Pain in right knee | CPT/HCPCS: 99212 ==

== ENCOUNTER 2025-05-17 06:24 | Emergency (ER) | payer MEDICAID, SELFPAY ==
[2025-05-17 06:30] VITALS: BP 123/77; PULSE 94; RESP 18; TEMP 37; O2SAT 97; BMI 24.1
--- NOTE | 2025-05-17 06:42 | ECG_ITS ---
Test Reason : ABD PAIN Blood Pressure : */* mmHG Vent. Rate : 74 BPM Atrial Rate : 74 BPM P-R Int : 142 ms QRS Dur : 72 ms QT Int : 390 ms P-R-T Axes : 70 30 1 degrees QTcB Int : 432 ms Normal sinus rhythm Nonspecific ST and T wave abnormality Abnormal ECG No previous ECGs available Referred By: Angie Mosher Electronically Signed By: RUSTY AGUILAR MD
--- NOTE | 2025-05-17 06:58 | ED_ITS ---
HPI - Abdominal Pain General Chief Complaint: Abdominal Pain Stated Complaint: abd pain Time Seen by Provider: 05/17/25 06:42 Source: patient, old records reviewed and plant physiology teacher Mode of arrival: ambulatory Limitations: no limitations History of Present Illness ED Provider: LANCE MARTINEZ narrative: 54 yo female with PMH of arthritis, migraine, anxiety, bertollotis syndrome, myoma, on omeprazole BID and carafate since mid March she is due for EGD in July but is asking for a sooner appointment. She has prior hx of GB surgery. She states she eats a strict diet for GERD and doesn't take NSAIDs. She has made lifestyle modifications as well. She reports she cannot take the pain anymore - wakes her up and happens 4 times a day. No GIB symptoms reported. MD elicited complaint: abdominal pain Pertinent past history: other Onset (ago): month(s) (1+) Pain Consistency: intermittent Location: epigastric Severity: severe Quality: burning Radiation: none Migration to: no migration Exacerbating factors: eating Relieving factors: nothing Context: history of similar episodes Associated symptoms: nausea Treatments prior to arrival: antacids Related Data Home Medications ?Medication ?Instructions ?Recorded ?Confirmed dicyclomine 10 mg capsule 10 mg PO TID 03/08/24 gabapentin 300 mg capsule 300 mg PO TID 03/08/2404/27 lidocaine 5 % topical patch patch topical 03/08/2409/20 triamcinolone acetonide 0.1 % appl topical pain 04/27/25 topical cream divalproex 500 mg tablet,delayed 500 mg PO .COMPLEX 04/27/25 release (Depakote) Previous Rx's ?Medication ?Instructions ?Recorded famotidine 20 mg tablet 20 mg PO BID heartburn #60 t abs 03/08/24 cyclobenzaprine 5 mg tablet 5 mg PO BEDTIME PRN muscle spasm 10/26/24 #30 tabs celecoxib 200 mg capsule (Celebrex) 200 mg PO DAILY GA N pain #30 caps 12/15/24 clonazepam 0.5 mg tablet (Klonopin) 0.5 mg PO BEDTIME 30 days #30 tabs 02/27/25 lidocaine HCl 2 % mucosal solution 1.2 ml mucous membr ane BID PRN 05/17/25 (Lidocaine Viscous) pain #100 mL Allergies Allergy/AdvReac Type Severity Reaction Status Date / Time aspirin (ASPIRIN) Allergy Unknown SWELLING, Verified 05/17/25 06:32 facial swelling Review of Systems Review of Systems Constitutional : No Fever, No Chills, No Fatigue ENT/Mouth : No sore throat, No Rhinorrhea Eyes: No Eye Pain, No Swelling, No Redness Cardiovascular : No Chest Pain, No SOB, No Dyspnea on Exertion Respiratory : No Cough, No Sputum Gastrointestinal : pos Nausea, No Vomiting, No Diarrhea, pos abdominal Pain Genitourinary : No Dysuria, No Urinary Frequency, No Hematuria, Musculoskeletal : No joint pain, No Myalgias, No Joint Swelling Skin : No Skin Lesions, No rash Neuro : No Weakness, No Numbness, No Dizziness All other systems reviewed and are negative [facility], [facility] Past Medical History Attestation statement: The following information was validated with the patient. Source: old records reviewed Medical History Epilepsy Seizure disorder Dizziness Osteoarthritis of knees, bilateral Migraine Anxiety disorder Fibromyalgia Seizure Surgical History History of cholecystectomy History of tubal ligation Family History Family History Maternal Grandmother Diabetes Father HTN (hypertension) Mother HTN (hypertension) Social History Social History Household Members: Spouse Household Members Other:: son Housing: House Are you a primary manager long term care to a significant other at home: No Do you presently have visiting nurse or other home services: No Alcohol intake: current Alcohol intake frequency: holidays/special occasions only Patient Tobacco Use Status: Never used Tobacco Advance Directives: No Advance Directives Information Provided: No Current occupational status: employed 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 Oriented X3. No acute distress. Eyes: Pupils equal, round and reactive to light. ENT: Pharynx normal. Neck: Normal inspection. Neck supple. CVS: Normal heart rate and rhythm. Pulses normal. Respiratory: No respiratory distress. Breath sounds normal. Abdomen: Soft and nontender. Skin: Skin warm and dry. Normal skin color. Extremities: No lower extremity edema. Neuro: Oriented X 3. No motor deficit. No sensory deficit. Medical Decision Making Medical Decision Making [facility] Narrative: 54 yo female with PMH of arthritis, migraine, anxiety, bertollotis syndrome, myoma, on omeprazole BID and carafate since mid March now here with worsening burning abdominal pain. At this time will need basic labs, start GI cocktail. If lab derangement noted will consider imaging but this is chronic and she has no concerning features. Differential Diagnosis Differential Diagnoses: The differential diagnosis associated with the presentation includes gastritis, esophagitis, pancreatitis Admission/Observation Consideration of admission/observation: Escalation of care including admission/observation considered labs reassuring symptoms resolved with GI cocktail Lab Data [facility] Lab Attestation statement: I reviewed the patient's lab results. 05/17/25 07:46 05/17/25 07:46 Labs: Lab Results 05/17/25 Range/Units 07:46 WBC 8.6 (4.8-10.8) X10*3/uL RBC 4.11 L (4.20-5.50) X10*6/uL Hgb 12.8 (12.0-16.0) g/dl Hct 39.7 (37.0-47.0) % MCV 96.6 (80.0-98.0) fL MCH 31.1 (27.0-33.0) pg MCHC 32.2 (31.0-35.0) g/dl RDW 14.6 (11.0-16.0) % Plt Count 166 (160-400) X10*3/uL MPV 9.8 (9.4-12.3) fL Immature Gran % (Auto) 0.2 (0.0-0.4) % Neut % (Auto) 29.0 L (45-73) % Lymph % (Auto) 21.5 (20-40) % [place] % (Auto) 7.5 (2-11) % Eos % (Auto) 41.2 H (0-4) % Baso % (Auto) 0.6 (0-2) % Lymph # (Auto) 1.9 (1.2-4.9) X10*3/uL [place] # (Auto) 0.7 (0.1-1.2) X10*3/uL Eos # (Auto) 3.6 H (0.0-0.4) X10*3/uL Baso # (Auto) 0.1 (0.0-0.2) X10*3/uL Abs Immat Gran (auto) 0.02 (0.00-0.03) X10*3/uL Absolute Neuts (auto) 2.5 (2.0-8.3) x10*3/uL Absolute Nucleated RBC 0.000 (0.0-0.012) X10*3/uL Nucleated RBC % (auto) 0.0 (0.0-0.2) /100WBC Smear Tech's Comments VERIFIED Sodium 142 (135-145) mmol/L Potassium 4.6 (3.3-5.1) mmol/L Chloride 107 (96-108) mmol/L Carbon Dioxide 28 (22-29) mmol/L Anion Gap 12 (12-20) BUN 15 (9-16) mg/dL Creatinine 0.75 (0.5-1.4) mg/dL Estim Creat Clear Calc 77.1 Estimated GFR > 60 Random Glucose 86 (60-115) mg/dL Calcium 9.2 (8.4-10.2) mg/dL Magnesium 2.0 (1.6-2.6) mg/dL Total Bilirubin 0.4 (0.0-1.0) mg/dL Direct Bilirubin 0.1 (0.0-0.5) mg/dL AST 28 (5-31) U/L ALT 29 (0-31) U/L Alkaline Phosphatase 80 (39-117) U/L Total Protein 7.1 (6.5-8.0) g/dL Albumin 3.8 (3.5-5.0) g/dL Lipase 43 (8-78) U/L Independent Interpretation I performed an independent interpretation of an: EKG Interpretation: Rate: 74 Rhythm: NSR Herminie: normal Normal P waves. Normal MAE. Normal QRS complex. ST T wave : normal, no PAPO qTC:432 prior studies: no acute ischemia The study has been interpreted contemporaneously by me. . External Record Review External record reviewed: Outpatient record Tests considered The following testing was considered but not selected: imaging but labs normal and benign abdominal exam Prescription Management I considered prescription management with: Pain Medication Medications Administered Discontinued Medications Generic Name Dose Route Start Last Admin Trade Name Demarcoq PRN Reason Stop Dose Admin Al Hydroxide/Mg Hydroxide 15 ml 05/17/25 06:46 05/17/25 07:19 Magnesium Hydrox/Alum Hydrox 30 Ml Oral.Susp PO 05/17/25 06:47 15 ml ONCE ONE Administration Lidocaine HCl 15 ml 05/17/25 06:46 05/17/25 07:19 Lidocaine Hcl Viscous 2 % 15 Ml Solution MUCOUS MEM 05/17/25 06:47 15 ml ONCE ONE Administration Discharge Plan Discharge Clinical Impression: GERD with esophagitis Qualifiers: Esophagitis bleeding: without hemorrhage Qualified Code(s): K21.00 - Gastro- esophageal reflux disease with esophagitis, without bleeding Patient Disposition: Home, Self-Care Instructions: Diet for Stomach Ulcers and Gastritis (ED), GERD (Gastroesophageal Reflux Disease) (ED) Additional Instructions: continue your diet return for any worsening symptoms or concerns follow up with gastroenterology Prescriptions: New lidocaine HCl [Lidocaine Viscous] 2 % solution 1.2 ml mucous membrane BID PRN (Reason: pain) Qty: 100 0RF No Action celecoxib [Celebrex] 200 mg capsule 200 mg PO DAILY PRN (Reason: pain) Qty: 30 0RF divalproex [Depakote] 500 mg tablet,delayed release (DR/EC) 500 mg PO .COMPLEX Rx Instructions: 500 mg orally 1 tab in AM and 2 tabs at bedtime; clonazepam [Klonopin] 0.5 mg tablet 0.5 mg PO BEDTIME 30 Days Qty: 30 2RF dicyclomine 10 mg capsule 10 mg PO TID gabapentin 300 mg capsule 300 mg PO TID lidocaine 5 % adhesive patch,medicated topical triamcinolone acetonide 0.1 % cream topical famotidine 20 mg tablet 20 mg PO BID Qty: 60 1RF cyclobenzaprine 5 mg tablet 5 mg PO BEDTIME PRN (Reason: muscle spasm) Qty: 30 0RF Referrals: [facility] [Provider Group, Gastroenterology] Print Language: Hungarian
[2025-05-17] MEDS: Lidocaine HCl Viscous 2 % 15 ML SOLUTION MUCOUS MEM (07:19)
[2025-05-17] MEDS: Magnesium Hydrox/Alum Hydrox 30 ML ORAL.SUSP 15 ML PO (07:19)
--- OUTSIDE RECORDS SUMMARY | 2025-05-17 07:27 | XMS_ITS | Encounter Summary ---
Author Organization [employer] Address [address] [facility] [address] [place] [address] Care Team Providers Care Medical Administrative Technician Name Role Phone Tammi Burgess MD Primary Care Pro vider Encounter Details Date Type Department Care Team (Late st Contact Info) Description 08/06/[address] [facility] [address] [place], [place] [phone] Judy Prieto MD [address] [place], [place] [phone] Acute pain of right knee (Primary Dx); [...] 06/29/2025 9:30 AM EST Office Visit [facility] [address] [place] [phone] Tammi Burgess MD [address] [place] [address] documented as of this encounter Visit Diagnoses Diagnosis Acute pain of right knee- Primary Effusion of right knee Dislocation of right knee with medial meniscus tear, initial encounter documented in this encounter Additional Health Concerns Assessment Noted Time PHQ-9 Depression Total Score: 0 07/23/20 11:15 AM EST documented as of this encounter Care Teams Medical Administrative Technician Relationship Specialty Start Date End Date Tammi Burgess MD [address] [place] [phone] PCP - General Internal Medicine 04/13/23 documented as of this encounter
--- OUTSIDE RECORDS SUMMARY | 2025-05-17 07:27 | XMS_ITS | Clinical Summary ---
Author Organization Located [facility] Address [address] [place] [address] [place] [phone] Phone Care Team Providers Care Sound Effects Manager Name Role Phone Popeye Vera NP Primary Care Provider Social History Tobacco Use Types Packs/Day Years [...] file Medical Devices Not on file Insurance [facility] NON NSPG PCP [facility] [employer] NON NSPG PCP S[facility] [employer] [facility] [employer] NON NSPG PCP S[facility] [employer] NON NSPG PCP S[facility] [facility] [employer] NON NSPG PCP [facility] Address: [address] [place] [address] WELLSENSE NON NSPG PCP S[facility] WELL[employer] NON NSPG PCP S[facility] [employer] [employer] NON NSPG PCP S[facility] [facility] [employer] NON NSPG PCP [facility] [place] [phone] Care Teams Sound Effects Manager Relationship Specialty Start Date End Date Popeye Vera NP [address] [place] [address] PCP - General 12/16/18 Additional Source Comments The information contained in this document represents components of the legal health record. It is not the complete legal health record.[facility]
--- OUTSIDE RECORDS SUMMARY | 2025-05-17 07:27 | XMS_ITS | Data Portability ---
Author Organization [place] [facility], Allergy Address [address] [address] Care Team Providers Care Farmhand Name Role Phone [facility] Primary Care Provider [phone] Assessment Encounter Date Assessment Date Assessment LastModified [...] as needed for subjective changes in hearing. [email or web address] Not available 07/05/2024 11:53:16 Plan of Treatment [...] Organization Details Recorded Time Abnormal auditory perception 17121045 Active 024 Claudia pollard [facility] 11:26:51 Problem Notes None recorded. Procedures Surgical History Date Name Laterality Status Provider Name and Address Organization Details Recorded Time 07/05/20 24 Tympanometry - 40274 completed Claudia Love [facility] 07/05/2024 11:26:42 07/05/20 24 [employer] - 15419 completed lCaudia Love [facility] 07/05/2024 11:26:38 Imaging Results None recorded. Procedure Notes None recorded. Medical Equipment None Reported. Allergies Allergen ID Allergen Name Allergen Category Reaction Reaction Severity Criticality Documentation Date Start Date Code Code System Note Provider Name and Address Organization Details Recorded Time 605191 aspirin medicatio n Not available Not available Not available 07/05/2024 1191 RxNorm Martine pollard [facility] 11:36:59 Medications Name Sig Start Date [...] Details Last Updated DateTime 07/05/2024 157.48 cm 12758.86 g Martine Pearce [place] [facility] 07/05/2024 11:36:51 Social History None recorded. Functional Status None recorded. Mental Status None recorded. Family History Nothing Reported. Medical History Condition Response GERD/Reflux Y Gynecological HistoryNo gynecological history recorded. Obstetrics History GPAL:G 0 P 0 0 0 0 Past Encounters Encounter ID Performer Location Encounter Start Date Encounter Closed Date Diagnosis/Indication Diagnosis SNOMED-CT Code Diagnosis ICD10 Code Diagnosis IMO Codes Diagnosis Note [id number] BALBIR HENDRICKSON MD [facility] [address] [address] 07/05/2024 10:26:51 07/05/2024 11:54:36 Abnormal auditory perception 58957974 H93.299 Audiologic al evaluation results: Right ear: Essentiall y normal hearing with excellent word recognitio n. Left ear: Normal hearing with excellent word recognitio n. Tympanomet ry: Right Ear:Type A Left Ear:Type As Health Concerns Section Related Observation LastModified by Organization Detai ls LastModified Time None Recorded Concern Status LastModified by Organization Details LastModified Time None Recorded Advance Directives Directive None Recorded Payers Insurance Date Sequence Insurance Name Policy Number Policy Melvin Covered Member ID Melvin Member ID Guarantor Name 07/05/2024 1 [place] [facility] Karen Spann [id number] Karen Og 07/05/2024 1 [facility] Karen Og [id number] Karen M Og Notes Date Note Type Note Provider Name and Address Organization Details Recorded Time 07/05/2024 text/html Patient comes in for evaluation of hearing loss. Patient has been noticing difficulty hearing in a variety of different listening environments, particularly exacerbated by background noise. Hearing loss has been gradual over a period of 6 years. Patient notes no tinnitus in either ear Patient comes in for audiometric testing and discussion of possible remedies for hearing loss. BALBIR HENDRICKSON MD [address] [place] [address], [id number] - [facility] 07/05/2024 11:53:35 OBGyn Episode No OBEpisode recorded.
--- OUTSIDE RECORDS SUMMARY | 2025-05-17 07:27 | XMS_ITS | Encounter Summary ---
Author Organization [employer] Address [address] [place] [address] [address] [place] [address] Care Team Providers Care Mid Level Practitioner Name Role Phone Tammi Burgess MD Primary Care Pro vider Reason for Visit * Reason Onset Date Comments Nurse Triage 07/16/2023 Encounter Details Date Type Department Care Team ([facility] st Contact Info) Description 07/16/2023 Telephone [facility] MEDICINE [address] [place] [address] Tammi Burgess MD [address] [place] [address] Nurse Triage Social History Tobacco Use Types [...] 07/16/2023 4:32 PM EST Triage call with [place] Applications Manager [place] [id number] Pt requests for Pt to speak for Pt. Pt has acute right knee pain. Pt has been seen in [facility] 07/09/23. Pt was prescribed tylenol 500mg, brace, voltaren gel and xrays. Xrays have been done. Pt isasking what xray results are contract writer advised that there is evidence of [...] Description 06/29/2025 9:30 AM EST Office Visit [facility] MEDICINE [address] [place] [address] Tammi Burgess MD [address] [place], [place] [phone] documented as of this encounter Visit Diagnoses Not on filedocumented in this encounter Care Teams Mid Level Practitioner Relationship Specialty Start Date End Date Tammi Burgess MD [address] [place] [id number] PCP - General Internal Medicine 04/13/23 documented as of this encounter
--- OUTSIDE RECORDS SUMMARY | 2025-05-17 07:27 | XMS_ITS | Clinical Summary ---
Author Organization [employer] Address [address] [place] [address] [address] [place] [address] Care Team Providers Care Shopper'S Aide Name Role Phone Tammi Burgess MD Primary [...] DAY NEEDED FOR PAIN 12/21/19 25 Active fish oil (fish oil) 1000 MG [...] PAIN 30 tablet 04/05/20 25 Active omeprazole (PriLOSEC) [address] capsuleIndication s:Epigastric pain Take 1 capsule (40 mg) by mouth before breakfast and before evening meal. Do not crush or chew. 60 capsule 04/28/20 25 026 Active aluminum-magnesiu m hydroxide-simethi cone (Maalox) 200-200-20 MG/5ML suspensionIndicat ions:Epigastric pain Take 30 mL by mouth before breakfast, before lunch, before evening meal, and at bedtime. 1680 mL 04/28/20 25 Active pregabalin (Lyrica) 25 MG capsule TAKE 1 CAPSULE BY MOUTH TWICE DAILY 60 capsule 1 05/03/20 25 Active pregabalin (Lyrica) 25 MG capsule Take 1 capsule (25 mg) by mouth 2 times daily. 60 capsule 1 03/02/20 25 025 Discontinued omeprazole OTC (PriLOSEC OTC) 20 MG EC tabletIndications :Epigastric pain Take 1 tab po BID for 14 days. 28 tablet 04/11/20 25 025 Discontinued clotrimazole (Lotrimin) 1 % creamIndications: Rash Apply topically 2 times daily for 28 days. 30 g 04/17/20 25 025 Active Problems Problem Noted Date Diagnosed Date Tremor of both hands 12/26/2024 Memory loss 12/26/2024 Onychomycosis 12/26/2024 LTBI (latent tuberculosis infection) 03/22/2024 Prediabetes 12/16/2023 Hyperlipidemia 12/16/2023 Epigastric pain 12/16/2023 Assessment & Plan (04/28/2025 12:44 PM EDT): I advise patient to avoid NSAIDs, spicy and acid food, I advise to eat at the same time every day, I advise to elevate the head of the bed and take medications as prescribe, extensive counseling was done today I decided to increase her omeprazole to 40 mg twice daily and add Maalox I gave her the information of her GI referral Human leukocyte antigen B27 spondyloarthropathy 12/16/2023 Knee [...] cancer: Never smoker Eye: 02/2023 WNL at [facility] Dental: up to date Hernia of [...] Encounters Date Type Department Care Team Description 05/03/2025 Refill [facility] [address] [place] [address] Tammi Burgess MD 04/28/2025 10:20 AM EDT Office Visit [facility] [address] [place] [address] Tammi Eldridge MD Epigastric pain 04/28/2025 Travel 04/17/2025 1:40 PM EDT Office Visit [facility] [address] [place] [phone] Kristal San ANP Rash (Primary Dx) 04/17/2025 Travel 04/14/2025 Results Follow-Up [facility] [address] [address] Shravan Dunne MD Leukocytes Stool Qualitative, Stool - Gastrointestinal panel, CBC auto differential, Comprehensive Metabolic Panel 04/12/2025 Orders Only [address] [address] Shravan Dunne MD 04/11/2025 7:20 PM EDT Office Visit [facility] [address] [address] Shravan Dunne MD Epigastric pain (Primary Dx) 04/11/2025 Travel 04/04/2025 Refill [facility] [address] [place] [address] Tammi Burgess MD 03/10/[address] [address] Tammi Burgess MD Low back pain associated with a spinal disorder other than radiculopathy or spinal stenosis 03/10/[address] [address] Tammi Burgess MD Results 03/09/2025 Results Follow-Up [address] [address] Tammi Burgess MD BI Mammogram Screening Tomosynthesis Bilateral 03/02/2025 1:30 PM EDT Office Visit [address] [address] Tammi Burgess MD Hyperlipidemia, unspecified hyperlipidemia type (Primary Dx); Uterine leiomyoma, unspecified location; Health care maintenance; Mixed anxiety and depressive disorder; Fibromyositis; Tremor of both hands; Onychomycosis 03/02/2025 Travel from Last 3 Months Immunizations Immunization [...] Sign Reading Time Taken Comments Blood Pressure 119/77 04/28/2025 10:19 AM EDT Pulse 91 04/28/2025 10:19 AM EDT Temperature 36.3 C (97.4 F) 04/28/2025 10:19 AM EDT Respiratory Rate 18 04/28/2025 10:1 9 AM EDT Oxygen Saturation 96% 04/28/2025 10: 19 AM EDT Inhaled Oxygen Concentration - - Weight 73.8 kg (162 lb 12.8 oz) 025 10:19 AM EDT Height 158.8 cm (5' 2.5 ) 04/17/2025 1:56 PM EDT Body Mass Index 29.3 04/17/2025 1:56 PM EDT Plan of Treatment Upcoming Encounters Date Type Department Care Team (Late st Contact Info) Description 06/29/2025 9:30 AM EST Office Visit [facility] [address] [place] [phone] Tammi Burgess MD [address] [place] [address] Health Maintenance Due Date Last Done Comments [...] 12/16/2025 12/16/2024 Depression Screening 12/26/2025 12/26/2024, 12/27/19 Disability Screening 12/26/2025 12/26/2024 Cervical Cancer Screening [...] TOMOSYNTHESIS BILATERAL Routine 02/27/2025 2:00 PM EDT HEPATITIS C AB W/REFL TO HCV RNA, [...] caries associated with failed or defective dental nondenominational Full coverage crown needed for root canal-treated [...] AM EDT Narrative 04/18/2025 11:37 AM EDT [place] [address] Fluoroscopy Report Signed Patient: Karen Og MR#: [id number] 4 : 1970 Acct:[id number] Age/Sex: 54 / F ADM Date: 04/18/25 Loc: HO.XRAY Attending Dr: Tammi Sorenson MD Ordering Physician: Tammi Burgess MD Date of Service: 04/18/25 Procedure(s): FL barium swallow with air Accession Number(s): [id number] cc: Tammi Burgess MD Reason for Exam: [...] Garett Perez MD 04/18/2025 11:34 AM EDT RP Dictated By: Garett Perez MD Signed By: <Electronically signed by Garett Perez MD in OV> 04/18/25 1134 DD/ 0940 TD/TT: 04/18/25 0949 Throat Cutter: Procedure Note Donotuseinterpreter, Image - 04/18/[address] [address] Fluoroscopy Report Signed Patient: Karen Og MMR#: [id number] 4 : 1970Acct:[id number] Age/Sex: 54 / FADM Date: 04/18/25 Loc: HO.XRAY Attending Dr: Tammi Sorenson MD Ordering Physician: Tammi Burgess MD Date of Service: 04/18/25 Procedure(s): FL barium swallow with air Accession Number(s): [id number] cc: Tammi Burgess MD Reason for Exam: [...] 04/18/25 1134 DD/ 0940 TD/TT: 04/18/25 0949 Throat Cutter: us Tammi Sorenson MD IMG FLUOROSCOPY P ROCEDURES Final Result * Leukocytes Stool Qualitative (04/13/2025 10:00 AM EDT) Leukocytes Stool Qualitative NEGATIVE NEGATIVE [facility] Stool 04/13/2025 10:0 0 AM EDT 04/13/2025 4:48 PM EDT Shravan Dunne MD LAB BODY FLUIDS AND STOOLS ORDER JEROMY Final Result [facility] [address] [place] [address] [phone] * Stool - Gastrointestinal panel (04/13/2025 10:00 AM EDT) Campylobacter Not Detected Not Detect. [facility] Plesiomonas shigelloides Not Detected Not Detect. [facility] Salmonella Not Detected Not Detect. [facility] Vibrio Not Detected Not Detect. [facility] Vibrio cholerae Not Detected Not Detect. [facility] YERSINIA ENTEROCOLITICA Not Detected Not Detect. [facility] Enteroaggregative E. coli (EAEC) Not Detected Not Detect. [facility] Enteropathogenic E. coli (EPEC) Not Detected Not Detect. [facility] Enterotoxigenic E. coli (ETEC) lt/st Not Detected Not Detect. [facility] Shiga-like toxin-producing E. coli (STEC) stx1/stx2 Not Detected Not Detect. [facility] E coli O157 Not applicable Not Detect. [facility] Comment:E. coli containing t he O157 antigen are a subset ofShiga-like toxin- producing E. coli (STEC). Shigella/Enteroinvasive E. coli (EIEC) Not Detected Not Detect. [facility] Cryptosporidium Not Detected Not Detect. [facility] Cyclospora cayetanensis Not Detected Not Detect. [facility] Entamoeba histolytica Not Detected Not Detect. [facility] Giardia lamblia Not Detected Not Detect. [facility] Adenovirus F 40/41 Not Detected Not Detect. [facility] Astrovirus Not Detected Not Detect. [facility] Norovirus GI/GII Not Detected Not Detect. [facility] Rotavirus A Not Detected Not Detect. [facility] Sapovirus Not Detected Not Detect. [facility] Comment: All results must be [...] assay is performed by Multiplexed PCR, utilizing [employer]. Stool Rectal contents / Unknown 04/13/2025 10:00 AM EDT 04/13/2025 4:48 PM EDT us Shravan Dunne MD LAB MICROBIOLOGY - GENERAL ORDER JEROMY Final Result [facility] [address] [place] [phone] * Helicobacter pylori??Antigen, EIA, Stool (04/13/2025 10:00 AM EDT) H pylori Ag Stool SEE NOTE [facility] Comment:HELICOBACTER PYLORI AG, EIA, STOOL Micro Number: [id number] Test Status: Final Specimen Source: Stool Specimen Quality: Adequate H.pylori Ag: Not Detected Antimicrobials, proton pump inhibitors, and bismuth preparations inhibit H. pylori and ingestion up to two weeks prior to testing may cause false negative results. If clinically indicated the test should be repeated on a new specimen obtained two weeks after discontinuing treatment. Reference Range: Not DetectedTHIS TEST WAS PERFORMED AT:[facility] [address] [id number] BLANCAS MD Stool Rectal contents / Unknown 04/13/2025 10:00 AM EDT 04/13/2025 4:48 PM EDT Shravan Dunne MD LAB BODY FLUIDS AND STOOLS ORDER JEROMY Final Result Performing Organization Address [facility] Co de Phone Number [facility] [address] [place] [phone] * Slide Review (04/12/2025 10:09 AM EDT) Slide Review VERIFIED [facility] 04/12/2025 10:0 9 AM EDT 04/12/2025 11:14 AM EDT us Shravan Dunne MD LAB BLOOD ORDERABLES Final Resul t Performing Organization Address [facility] de Phone Number [facility] [address] [place] [phone] * (ABNORMAL) CBC auto differential (04/12/2025 10:09 AM EDT) White Blood Count 10.4 4.8 - 10.8 X10*3/uL [facility] Red Blood Count 4.18(L) 4.20 - 5.50 X10*6/uL [facility] Hemoglobin 12.8 12.0 - 16.0 g/dl [facility] Hematocrit 40.0 37.0 - 47.0 % [facility] Mean Corpuscular Volume 95.7 80.0 - 98.0 fL [facility] Mean Corpuscular Hemoglobin 30.6 27.0 - 33.0 pg [facility] Mean Corpuscular HGB Conc 32.0 31.0 - 35.0 g/dl [facility] Red Cell Distribution Width 14.2 11.0 - 16.0 % [facility] Platelet Count 164 160 - 400 X10*3/uL [facility] Mean Platelet Volume 10.1 9.4 - 12.3 fL [facility] Neutrophils Percent Auto 36.0(L) 45 - 73 % [facility] Imm Gran Pct Auto 1.3(H) 0.0 - 0.4 % [facility] Lymphocytes Percent Auto 20.1 20 - 40 % [facility] Monocytes Percent Auto 7.0 2 - 11 % [facility] Eosinophils Percent Auto 34.7(H) 0 - 4 % [facility] Basophils Percent Auto 0.9 0 - 2 % [facility] NRBC Pct Auto 0.0 0.0 - 0.2 /100WBC [facility] Neutrophils Absolute Auto 3.8 2.0 - 8.3 x10*3/uL [facility] Imm Gran Abs Auto 0.14(H) 0.00 - 0.03 X10*3/uL [facility] Lymphocytes Absolute Auto 2.1 1.2 - 4.9 X10*3/uL [facility] Monocytes Absolute Auto 0.7 0.1 - 1.2 X10*3/uL [facility] Eosinophils Absolute Auto 3.6(H) 0.0 - 0.4 X10*3/uL [facility] Basophils Absolute Auto 0.1 0.0 - 0.2 X10*3/uL [facility] NRBC Abs Auto 0.000 0.0 - 0.012 X10*3/uL [facility] Blood Venous blood specimen / Unknown 04/12/2025 10:09 AM EDT 04/12/2025 11:14 AM EDT us Shravan Dunne MD LAB BLOOD ORDERABLES Edited Resu lt - Final [facility] [address] [place] [phone] * (ABNORMAL) Comprehensive Metabolic Panel (04/12/2025 10:09 AM EDT) Sodium 141 135 - 145 mmol/L [facility] Potassium 4.5 3.3 - 5.1 mmol/L [facility] Chloride 104 96 - 108 mmol/L [facility] Carbon Dioxide 30(H) 22 - 29 mmol/L [facility] Anion Gap 12 12 - 20 [facility] Urea Nitrogen (BUN) 15 9 - 16 mg/dL [facility] Creatinine, Serum 0.69 0.5 - 1.4 mg/dL [facility] Estimated Glomerular Filt Rate >60 [facility] Comment:Chronic Kidney Disea se: Estimated GFR < 60 mL/min/1.43j8Dxldll Kidney Disease: Estimated GFR < 15 mL/min/1.73m2 Glucose 93 60 - 115 mg/dL [facility] Calcium 9.2 8.4 - 10.2 mg/dL [facility] Bilirubin, Total 0.3 0.0 - 1.0 mg/dL [facility] Aspartate Amino Transferase 23 5 - 31 U/L [facility] Alanine Aminotransferase 11 0 - 31 U/L [facility] Total Protein 6.9 6.5 - 8.0 g/dL [facility] Albumin Level 3.8 3.5 - 5.0 g/dL [facility] Alkaline Phosphatase 66 39 - 117 U/L [facility] Blood Venous blood specimen / Unknown 04/12/2025 10:09 AM EDT 04/12/2025 11:14 AM EDT us Shravan Dunne MD LAB BLOOD ORDERABLES Final Resul t [facility] [address] [place] [phone] * US Pelvis Transvaginal (02/27/2025 4:30 PM EDT) Anatomical Region Laterality Modality Pelvis Ultrasound 02/27/2025 4:30 PM EDT Narrative 02/27/2025 5:46 PM EDT [address] [address] Ultrasound Report Signed Patient: Karen Og MR#: [id number] 4 : 1970 Acct:[id number] Age/Sex: 54 / F ADM Date: 02/27/25 Loc: HO.US Attending Dr: Juan Espinoza MD Ordering Physician: Juan Espinoza MD Date of Service: 02/27/25 Procedure(s): US pelvic and transvaginal Accession Number(s): [id number] cc: Tammi Burgess MD; Juan Espinoza MD [...] 02/27/25 1743 DD/ 1630 TD/TT: 02/27/25 1645 Throat Cutter: Procedure Note Donotuseinterpreter, Image - 02/27/[address] [address] Ultrasound Report Signed Patient: Karen Og MMR#: [id number] 4 : 1970Acct:[id number] Age/Sex: 54 / FADM Date: 02/27/25 Loc: HO.US Attending Dr: Juan Espinoza MD Ordering Physician: Juan Espinoza MD Date of Service: 02/27/25 Procedure(s): US pelvic and transvaginal Accession Number(s): [id number] cc: Tammi Burgess MD; Juan Espinoza MD [...] 02/27/25 1743 DD/ 1630 TD/TT: 02/27/25 1645 Throat Cutter: [facility] External Provider IMG US PROCEDURES Final Result * BI Mammogram Screening Tomosynthesis Bilateral (02/27/2025 2:00 PM EDT) Anatomical Region Laterality Modality Breast Bilateral Mammography 02/27/2025 2:00 PM EDT Narrative 03/09/2025 8:24 AM EDT [facility] [address] [place] [address] Mammography Report Signed Patient: Karen Og MR#: [id number] 4 : 1970 Acct:[id number] Age/Sex: 54 / F ADM Date: 02/27/25 Loc: HO.MAMMO Attending Dr: Tammi Sorenson MD Ordering Physician: Tammi Burgess MD Re sults: 1Negative Date of Service: 02/27/25 Follow Up: 1 Year From Orig inal Mammogram Procedure(s): MM tomosynthesis screening BI Accession Number(s): [id number] cc: Tammi Burgess MD EXAMINATION: MM SCREENING [...] 03/09/25 0821 DD/ 1400 TD/TT: 02/27/25 1412 Throat Cutter: Procedure Note Donotuseinterpreter, Image - 03/09/2025 [facility] [address] [place] [address] Mammography Report Signed Patient: Karen Og MMR#: [id number] 4 : 1970Acct:[id number] Age/Sex: 54 / FADM Date: 02/27/25 Loc: MELISAO Attending Dr: Tammi Sorenson MD Ordering Physician: Tammi Burgess sults: 1Negative Date of Service: 02/27/25Follow Up: 1 Year From Orig inal Mammogram Procedure(s): MM tomosynthesis screening BI Accession Number(s): [id number] cc: Tammi Burgess MD EXAMINATION: MM SCREENING [...] 03/09/25 0821 DD/ 1400 TD/TT: 02/27/25 1412 Throat Cutter: Tammi Sorenson MD IMG BI PROCEDURES Final Result * Hepatitis C Antibody with Reflex to HCV, RNA, Quantitative, Real-Time PCR (02/06/2025 10:04 AM EDT) Hepatitis C Antibody Nonreactive Nonreactive [facility] Comment:Antibodies to HCV no t detected; does not exclude early acuteHCV infection. Blood Venous blood specimen / Unknown 02/06/2025 10:04 AM EDT 02/06/2025 11:11 AM EDT us Tammi Sorenson MD LAB BLOOD ORDERAB LES Final Result [facility] [address] [place] [phone] * HIV-1/2 Antigen and Antibodies, Fourth Generation, with Reflexes (02/06/2025 10:04 AM EDT) HIV AB/AG Nonreactive Nonreactive [facility] Comment:HIV-1 p24 Ag and/or HIV-1/HIV-2 Ab not detected.A test result that is nonreactive does not exclude thepossibility of exposure to or infection with HIV-1 and/orHIV-2. Nonreactive results in this assay for individualswith prior exposure to HIV-1 and/or HIV-2 may be due toantigen and antibody levels that are below the limit ofdetection of this assay.The [employer] Alinity HIV Ag/Ab Combo assay result andsupplemental assay results should be interpreted inconjunction with the patient's clinical presentation,history and other laboratory results. If the results areinconsistent with clinical evidence, additional testing issuggested to confirm the result. Blood Venous blood specimen / Unknown 02/06/2025 10:04 AM EDT 02/06/2025 11:11 AM EDT us Tammi Sorenson MD LAB BLOOD ORDERAB LES Final Result [facility] [address] [place] [phone] * Hemoglobin A1c (02/06/2025 10:04 AM EDT) Hemoglobin A1c 5.5 <6.0 % [facility] Comment:Hemoglobin A1C Refer ence Range Adults: 4.8 - 6.0 % Non diabetic: < 6.0 % Goal: < 7.0 %Additional Action Suggested: > 8.0 %Note: Hemoglobin A1c results are invalid for patients with abnormal amounts of HbF. Blood transfusions may impact the HbA1c concentration in the patient sample. Estimated Average Glucose 111 mg/dL [facility] Comment:eAG = Estimated ave rage glucose which is %A1C expressed asaverage glucose, using the formula of the Z2I-WrmyptsOtetrqs Glucose study (ADAG), Diabetes Care, Vol.31,#8,Feb. 2007 Blood Venous blood specimen / Unknown 02/06/2025 10:04 AM EDT 02/06/2025 11:11 AM EDT us Tammi Sorenson MD LAB BLOOD ORDERAB LES Final Result [facility] [address] [place] [phone] * Hm Colonoscopy (05/28/2022 1:55 PM [...] Detected [facility] Comment: Methodology: Bottom Stainer-Mediated Amplification This assay detects E6/E7 viral messenger RNA (mRNA) from 14 high-risk HPV types (16,18,31,33,35,39,45,51,52,56,58,59,66,68). The analytical performance characteristics of this assay have been determined by [employer]. The modifications have not been cleared or approved by the FDA. This assay has been validated pursuant to the CLIA regulations and is used for clinical purposes. For additional information, please refer to http://education.Tugende/faq/NXF283q4 (This link if provided for information/ educational purposes only.) THIS TEST WAS PERFORMED AT: [facility] [address] [place] [address],[place] [address] AMY BLANCAS MD 08/15/2021 1:40 PM EST us Historical Provider HISTORICAL/NON ORDERABLE LABS Final Result [facility] [address] * THINPREP PAP (01/11/2021 11:51 AM [...] along with historic and current clinical information. School Bus Aide : SEE COMMENT [facility] Comment: GSG, CT(ASCP) CT screening location: [place] [address] Interpretation/R esult: Negative for intraepithelial lesion or [...] Provider MD LAB PATHOLOGY ORDERABLES Final Result [facility] [address] from Last 3 Months or Most Recently Relevant to Health Maintenance Insurance [facility] C3 DENTAL-[facility] MEDICAID STAND ADULT DENTAL - HSN FULL (MEDICAID) Care Teams Shopper'S Aide Relationship Specialty Start Date End Date Tammi Burgess MD [address] [place] [phone] PCP - General Internal Medicine 04/13/23
--- OUTSIDE RECORDS SUMMARY | 2025-05-17 07:27 | XMS_ITS | Encounter Summary ---
Author Organization [employer] Address [address] [place] [address] 7 [place] [address] Care Team Providers Care Gas Line Repairer Name Role Phone Tammi Burgess MD Primary Care Pro vider Reason for Referral * Consultation (Routine) - Closed Specialty Diagnoses / Procedures Referred By Contac t Referred To Contact Orthopaedic Surgery Diagnoses Knee pain, unspecified chronicity, unspecified laterality Tammi Burgess MD [address] [place] [address] Phone: tel: fax: [facility] [address] [place] [address] Phone: tel: Referral ID Status Reason Start Date Expiration Date V isits Requested Visits Authorized [id number] Closed Specialty Services Required 11/24/2024 11/24/2025 6 6 Encounter Details Date Type Department Care Team (Late st Contact Info) Description 12/07/2024 Orders Only [facility] [address] [place] [phone] Tammi Burgess MD [address] [place], [place] [phone] Knee pain, unspecified chronicity, unspecified laterality (Primary [...] Description 06/29/2025 9:30 AM EST Office Visit [facility] [address] [place] [phone] Tammi Burgess MD [address] [place] [address] Scheduled Referrals Name Type Priority Associated Diagnoses [...] documented as of this encounter Care Teams Gas Line Repairer Relationship Specialty Start Date End Date Tammi Burgess MD [address] [place] [phone] PCP - General Internal Medicine 04/13/23 documented as of this encounter
--- OUTSIDE RECORDS SUMMARY | 2025-05-17 07:27 | XMS_ITS | Encounter Summary ---
Author Organization [facility] Address [address] [place] [address] [address] [place] [address] Care Team Providers Care Filing Machine Operator Name Role Phone Charito Lawrence Primary Care Provider Tammi Downs MD Primary Care Pro vider Encounter Details Date Type Department Care Team (Latest Contact Info) Description 07/29/2018 Abstract [facility] Dental, Provider, DDS Social [...] Description 06/29/2025 9:30 AM EST Office Visit [facility] [address] [place] [address] Tammi Burgess MD [address] [place] [address] documented as of this encounter Visit Diagnoses Not on filedocumented in this encounter Care Teams Filing Machine Operator Relationship Specialty Start Date End Date Charito Lawrence FNP PCP - General Family Medicine 05/17/21 04/12/23 Tammi Burgess MD [address] [place], [place] [phone] PCP - General Internal Medicine 04/13/23 documented as of this encounter
--- OUTSIDE RECORDS SUMMARY | 2025-05-17 07:27 | XMS_ITS | Encounter Summary ---
Author Organization [employer] Address [address] [facility] 7t [place] [address] Care Team Providers Care Timber Treating Tank Operator Name Role Phone Tammi Burgess MD Primary Care Pro vider Encounter Details Date Type Department Care Team ([facility] st Contact Info) Description 07/18/2024 Orders Only [facility] MEDICINE [address] [place] [address] ProviderChata MD Social History Tobacco Use Types [...] 1:55 PM EST Pelvic US ordered by TELETYPE CLERK. Patient to fu results with TELETYPE CLERK (Dr Espinoza). documented in this encounter Plan of Treatment Upcoming Encounters Date Type Department Care Team (Late st Contact Info) Description 06/29/2025 9:30 AM EST Office Visit [facility] MEDICINE [address] [place] [address] Tammi Burgess MD 230 [place] [address] documented as of this encounter Procedures Procedure [...] PM EST Narrative 08/09/2024 10:56 AM EST [address] [address] Magnetic Resonance Report Signed Patient: Karen Og MR#: [id number] 4 : 1970 Acct:[id number] Age/Sex: 54 / F ADM Date: 08/07/24 Loc: HO.MRI Attending Dr: Keyon Bowles MD Ordering Physician: Keyon Bowles MD Date of Service: 08/07/24 Procedure(s): MR knee LT wo con Accession Number(s): [id number] cc: Tammi Burgess MD; Keyon Bowles MD [...] 1053 DD/ 1458 TD/TT: 08/07/24 1507 Assistant To The Director: Procedure Note Donotuseinterpreter, Image - 08/09/[address] [address] Magnetic Resonance Report Signed Patient: Karen Og MMR#: [id number] 4 : 1970Acct:[id number] Age/Sex: 54 / FADM Date: 08/07/24 Loc: HO.MRI Attending Dr: Keyon Bowles MD Ordering Physician: Keyon Bowles MD Date of Service: 08/07/24 Procedure(s): MR knee LT wo con Accession Number(s): [id number] cc: Tammi Burgess MD; Keyon Bowles MD [...] 1053 DD/ 1458 TD/TT: 08/07/24 1507 Assistant To The Director: us [facility] External Provider IMG MRI PROCEDURES Final Result * US Pelvis Transvaginal (08/02/2024 4:26 PM EST) Anatomical Region Laterality Modality Pelvis Ultrasound 08/02/2024 4:26 PM EST Narrative 08/02/2024 4:27 PM EST [place] [address] Ultrasound Report Signed Patient: Karen Og MR#: [id number] 4 : 1970 Acct:[id number] Age/Sex: 54 / F ADM Date: 08/01/24 Loc: .US Attending Dr: Juan Espinoza MD Ordering Physician: Juan Espinoza MD Date of Service: 08/01/24 Procedure(s): US pelvic and transvaginal Accession Number(s): [id number] cc: Tammi Burgess MD; Juan Espinoza MD [...] 08/02/24 1626 DD/ 1626 TD/TT: 08/02/24 162 Assistant To The Director: Procedure Note Donotuseinterpreter, Image - 08/02/2024 [place] [address] Ultrasound Report Signed Patient: Karen Og MMR#: [id number] 4 : 1970Acct:[id number] Age/Sex: 54 / FADM Date: 08/01/24 Loc: HO.US Attending Dr: Juan Espinoza MD Ordering Physician: Juan Espinoza MD Date of Service: 08/01/24 Procedure(s): US pelvic and transvaginal Accession Number(s): [id number] cc: Tammi Burgess MD; Juan Espinoza MD [...] OV> 08/02/241625 DD/ 1626 TD/TT: 08/02/24 162 Assistant To The Director: [facility] External Provider IMG US PROCEDURES Final Result * Hm Colonoscopy (05/28/2022 1:55 PM EDT) Historical Provider HEALTH MAINTENANCE Final Result documented in this encounter Visit Diagnoses Not on filedocumented in this encounter Additional Health Concerns Assessment Noted Time PHQ-9 Depression Total Score: 5 10/20/19 24 10:39 AM EDT documented as of this encounter Care Teams Timber Treating Tank Operator Relationship Specialty Start Date End Date Tammi Burgess MD [address] [place] [address] PCP - General Internal Medicine 04/13/23 documented as of this encounter
--- OUTSIDE RECORDS SUMMARY | 2025-05-17 07:27 | XMS_ITS | Encounter Summary ---
Author Organization [employer] Address [address] [facility] 7t [place] [address] Care Team Providers Care Slat Basket Maker Helper Name Role Phone Tammi Burgess MD Primary Care Pro vider Encounter Details Date Type Department Care Team (Latest Contact Info) Description 04/14/2025 Results Follow-Up [facility] [address] [place] [address] Shravan Dunne MD 230 [place] [address] Leukocytes Stool Qualitative, Stool - Gastrointestinal panel, [...] Description 06/29/2025 9:30 AM EST Office Visit [facility] MEDICINE [address] [place] [address] Tammi Burgess MD [address] [place] [address] documented as of this encounter Visit Diagnoses Not on filedocumented in this encounter Additional Health Concerns Assessment Noted Time PHQ-9 Depression Total Score: 8 12/27/19 25 3:12 PM EDT documented as of this encounter Care Teams Slat Basket Maker Helper Relationship Specialty Start Date End Date Tammi Burgess MD [address] [place] [address] PCP - General Internal Medicine 04/13/23 documented as of this encounter
--- OUTSIDE RECORDS SUMMARY | 2025-05-17 07:27 | XMS_ITS | Encounter Summary ---
Author Organization [employer] Address [address] [facility] 7t [place] [address] Care Team Providers Care Story Editor Name Role Phone Tammi Burgess MD Primary Care Pro vider Reason for Visit * Reason Comments Med Refill Encounter Details Date Type Department Care Team (Late st Contact Info) Description 08/11/2024 Refill [facility] MEDICINE 230 [place] [address] Tammi Burgess MD 230 [place], [place] [phone] Social History Tobacco Use Types Packs/Day Years [...] 9:30 AM EST Office Visit [facility] MEDICINE [address] [place] [address] Tammi Burgess MD [address] [place] [address] documented as of this encounter Visit Diagnoses Not on filedocumented in this encounter Additional Health Concerns Assessment Noted Time PHQ-9 Depression Total Score: 5 10/20/19 24 10:39 AM EDT documented as of this encounter Care Teams Story Editor Relationship Specialty Start Date End Date Tammi Burgess MD [address] [place] [address] PCP - General Internal Medicine 04/13/23 documented as of this encounter
--- OUTSIDE RECORDS SUMMARY | 2025-05-17 07:27 | XMS_ITS | Encounter Summary ---
Author Organization [facility] Address [address] [facility] [address] [place] [address] Phone Care Team Providers Care Echometer Engineer Name Role Phone Popeye Vera PLATING EQUIPMENT TENDER Primary Care Provider [phone] Encounter Details Date Type Department Care Team (Late st Contact Info) Description 12/17/2018 Ancillary Orders [facility] [address] [place] [address] [place] [address] Fab Berry DO [address] [place] [address] Palpitations Social History Tobacco Use Types Packs/Day [...] Palpitations documented in this encounter Care Teams Echometer Engineer Relationship Specialty Start Date End Date Popeye Vera NP 230 [place] [address] PCP - General 12/16/18 documented as of this encounter Additional Source Comments The information contained in this document represents components of the legal health record. It is not the complete legal health record.[facility]
--- OUTSIDE RECORDS SUMMARY | 2025-05-17 07:27 | XMS_ITS | Encounter Summary ---
Author Organization [employer] Address [address] [place] [address] 7 [place] [address] Care Team Providers Care Rolfer Name Role Phone Charito Lawrence [facility] Primary Care Provider Tammi Downs MD Primary Care Pro vider Encounter Details Date Type Department Care Team (Late st Contact Info) Description 03/31/2023 Abstract [facility] ADULT DENTAL 230 [place] [address] Jamey Hussein, DMD [address] [place] [address] Social History Tobacco Use Types Packs/Day Years [...] Description 06/29/2025 9:30 AM EST Office Visit [facility] MEDICINE [address] [place] [address] Tammi Burgess MD 230 [place] [address] documented as of this encounter Visit Diagnoses Not on filedocumented in this encounter Care Teams Rolfer Relationship Specialty Start Date End Date Charito Lawrence FNP PCP - General Family Medicine 05/17/21 04/12/23 Tammi Burgess MD [address] [place] [address] PCP - General Internal Medicine 04/13/23 documented as of this encounter
--- NOTE | 2025-05-17 07:32 | MHC.EDTECH ---
attempted to draw labs pt wanted to go to bathroom first.
[2025-05-17 07:53] LABS: Hematocrit 39.7 % (37.0-47.0); Hemoglobin 12.8 g/dl (12.0-16.0); Imm Gran Abs Auto 0.02 X10*3/uL (0.00-0.03); Imm Gran Pct Auto 0.2 % (0.0-0.4); Lymphocytes Absolute Auto 1.9 X10*3/uL (1.2-4.9); MANUAL DIFF FLAG SCAN; Mean Corpuscular HGB Conc 32.2 g/dl (31.0-35.0); Mean Corpuscular Volume 96.6 fL (80.0-98.0); NRBC Abs Auto 0.000 X10*3/uL (0.0-0.012); NRBC Pct Auto 0.0 /100WBC (0.0-0.2); Platelet Count 166 X10*3/uL (160-400); Red Blood Count 4.11 X10*6/uL (4.20-5.50); SCAN SMEAR FLAG 1; White Blood Count 8.6 X10*3/uL (4.8-10.8)
--- NOTE | 2025-05-17 07:56 | PC.NURSE ---
patient a&ox3, pt medicated for 8/10 abd pain, labs drawn, vss, plan of care ongoing
[2025-05-17 07:57] LABS: Mean Corpuscular Hemoglobin 31.1 pg (27.0-33.0)
[2025-05-17 08:08] LABS: Alanine Aminotransferase 29 U/L (0-31); Albumin Level 3.8 g/dL (3.5-5.0); Alkaline Phosphatase 80 U/L (39-117); Anion Gap 12 (12-20); Aspartate Amino Transferase 28 U/L (5-31); Blood Urea Nitrogen 15 mg/dL (9-16); Calcium 9.2 mg/dL (8.4-10.2); Carbon Dioxide 28 mmol/L (22-29); Chloride 107 mmol/L (96-108); Creatinine Clr Calc Pharmacy 77.1; Estimated Glomerular Filt Rate > 60; Lipase 43 U/L (8-78); Magnesium 2.0 mg/dL (1.6-2.6); Potassium 4.6 mmol/L (3.3-5.1); Sodium 142 mmol/L (135-145); Total Protein 7.1 g/dL (6.5-8.0)
[2025-05-17 09:03] VITALS: BP 121/73; PULSE 91; RESP 18; TEMP 36.7; O2SAT 98
== END 2025-05-17 09:04 | disposition home or self-care (01) ==
PROVIDERS: Emergency Provider Emergency Medicine; PCP Student in an Organized Health Care Education/Training Program
DX: K21.00 Gastro-esophageal reflux disease with esophagitis, without bleeding (principal); R10.9 Unspecified abdominal pain; R10.13 Epigastric pain
CPT/HCPCS: 36415; 80048; 80076; 83690; 83735; 85025; 93005; 99283; 99284

== ENCOUNTER → 2025-05-17 06:42 | Outpatient (BNV) | payer MEDICAID, SELFPAY | PROVIDERS: Emergency Provider Emergency Medicine; PCP Student in an Organized Health Care Education/Training Program; Visit Provider Internal Medicine Cardiovascular Disease | DX: R10.9 Unspecified abdominal pain (principal) | CPT/HCPCS: 93010 ==

== ENCOUNTER 2025-05-18 09:20 | Outpatient (REF) | payer MEDICAID, SELFPAY ==
--- OUTSIDE RECORDS SUMMARY | 2025-05-18 10:22 | XMS_ITS | Clinical Summary ---
Author Organization [facility] Address [address] [place] [address] [place] [address] Phone Care Team Providers Care Assembly Inspector Helper Name Role Phone Popeye Vera NP Primary Care Provider [phone] Social History Tobacco Use Types Packs/Day Years [...] file Medical Devices Not on file Insurance [facility] NON NSPG PCP SILVER CLARITY CONNECTORCARE [employer] NON NSPG PCP SILVER CLARITY CONNECTORCARE [employer] NON NSPG PCP SILVER CLARITY CONNECTORCARE [employer] NON NSPG PCP SILVER CLARITY CONNECTORCARE [employer] NON NSPG PCP SILVER CLARITY CONNECTORCARE [facility] Address: [address] [place] [address] WELLSENSE NON NSPG PCP SILVER CLARITY CONNECTORCARE [employer] NON NSPG PCP SILVER CLARITY CONNECTORCARE [employer] NON NSPG PCP SILVER CLARITY CONNECTORCARE [employer] NON NSPG PCP SILVER CLARITY CONNECTORCARE [place] [id number] Care Teams Assembly Inspector Helper Relationship Specialty Start Date End Date Popeye Vera NP 230 [place] [address] PCP - General 12/16/18 Additional Source Comments The information contained in this document represents components of the legal health record. It is not the complete legal health record.[facility]
--- OUTSIDE RECORDS SUMMARY | 2025-05-18 10:22 | XMS_ITS | Encounter Summary ---
Author Organization [facility] Address [address] [facility] [address] [place] [address] Phone Care Team Providers Care Anesthesia Assistant Name Role Phone Popeye Vera TOUCH UP CARVER Primary Care Provider [phone] Encounter Details Date Type Department Care Team (Late st Contact Info) Description 12/17/2018 Ancillary Orders [facility] [address] [place] [address] [place] [address] Fab Berry DO [address] [place] [address] Palpitations Social History Tobacco Use Types Packs/Day [...] Palpitations documented in this encounter Care Teams Anesthesia Assistant Relationship Specialty Start Date End Date Popeye Vera NP 230 [place] [address] PCP - General 12/16/18 documented as of this encounter Additional Source Comments The information contained in this document represents components of the legal health record. It is not the complete legal health record.[facility]
== END 2025-05-18 09:21 | disposition home or self-care (01) ==
LOC: HO.HHCL 09:20
PROVIDERS: PCP Student in an Organized Health Care Education/Training Program; Visit Provider Student in an Organized Health Care Education/Training Program
DX: D72.10 Eosinophilia, unspecified (principal)
CPT/HCPCS: 36415; 86682

== ENCOUNTER 2025-05-22 09:20 | Outpatient (REF) | payer MEDICAID, SELFPAY ==
--- OUTSIDE RECORDS SUMMARY | 2025-05-23 20:03 | XMS_ITS | Data Portability ---
Author Organization [place] [facility] Address [address] [address] Care Team Providers Care Forge Tender Name Role Phone [facility] Primary Care Provider Assessment Encounter Date [...] as needed for subjective changes in hearing. [email or web address] Not available 07/05/2024 11:53:16 Plan of Treatment [...] Organization Details Recorded Time Abnormal auditory perception 87233124 Active 024 Claudia pollard [facility] 11:26:51 Problem Notes None recorded. Procedures Surgical History Date Name Laterality Status Provider Name and Address Organization Details Recorded Time 07/05/20 24 Tympanometry - 71261 completed Claudia Love [facility] Ear [facility] 07/05/2024 11:26:42 07/05/20 24 Air & Bone Audio - 22529 completed Claudia Love [facility] Ear Nose Thro[facility] 07/05/2024 11:26:38 Imaging Results None recorded. Procedure Notes None recorded. Medical Equipment None Reported. Allergies Allergen ID Allergen Name Allergen Category Reaction Reaction Severity Criticality Documentation Date Start Date Code Code System Note Provider Name and Address Organization Details Recorded Time 013271 aspirin medicatio n Not available Not available Not available 07/05/2024 1191 RxNorm Martine pollard [facility] 11:36:59 Medications Name Sig Start Date [...] Details Last Updated DateTime 07/05/2024 157.48 cm 11067.86 g Martine Pearce [place] - [facility] 07/05/2024 11:36:51 Social History None recorded. Functional Status None recorded. Mental Status None recorded. Family History Nothing Reported. Medical History Condition Response GERD/Reflux Y Gynecological HistoryNo gynecological history recorded. Obstetrics History GPAL:G 0 P 0 0 0 0 Past Encounters Encounter ID Performer Location Encounter Start Date Encounter Closed Date Diagnosis/Indication Diagnosis SNOMED-CT Code Diagnosis ICD10 Code Diagnosis IMO Codes Diagnosis Note [id number] BALBIR HENDRICKSON MD [facility] [address] [phone] 07/05/2024 10:26:51 07/05/2024 11:54:36 Abnormal auditory perception 93800882 H93.299 Audiologic al evaluation results: Right ear: [...] Melvin Member ID Guarantor Name 07/05/2024 1 [place]: [facility] Karen Spann [id number] Karen Og 07/05/2024 1 [facility] ([facility]) Karen Og [id number] Karen M Og Notes Date Note Type [...] remedies for hearing loss. BALBIR HENDRICKSON MD [address] [place] [address], [phone] - [facility] 07/05/2024 11:53:35 OBGyn Episode No OBEpisode recorded.
== END 2025-05-22 09:21 | disposition home or self-care (01) ==
LOC: HO.HHCL 09:20
PROVIDERS: Visit Provider Student in an Organized Health Care Education/Training Program
DX: Z13.89 Encounter for screening for other disorder (principal)
CPT/HCPCS: 87177; 87209

== ENCOUNTER 2025-05-23 09:34 | Outpatient (REF) | payer MEDICAID, SELFPAY ==
--- OUTSIDE RECORDS SUMMARY | 2025-05-23 14:29 | XMS_ITS | Encounter Summary ---
Author Organization [employer] Address [address] [facility] 7t [place] [address] Care Team Providers Care Repairer Name Role Phone Tammi Burgess MD Primary Care Pro vider Encounter Details Date Type Department Care Team ([facility] st Contact Info) Description 07/18/2024 Orders Only [facility] MEDICINE 230 [place] [address] ProviderChata MD Social History Tobacco Use Types [...] 1:55 PM EST Pelvic US ordered by HR SYSTEMS ANALYST. Patient to fu results with HR SYSTEMS ANALYST (Dr Espinoza). documented in this encounter Plan of Treatment Upcoming Encounters Date Type Department Care Team (Late st Contact Info) Description 06/29/2025 9:30 AM EST Office Visit [facility] MEDICINE [address] [place] [address] Tammi Burgess MD 230 [place] [address] documented as of this encounter Procedures Procedure [...] PM EST Narrative 08/09/2024 10:56 AM EST [address] [address] Magnetic Resonance Report Signed Patient: Karen Og MR#: [id number] [birth year] : 1970 Acct:[id number] Age/Sex: 54 / F ADM Date: 08/07/24 Loc: HO.MRI Attending Dr: Keyon Bowles MD Ordering Physician: Keyon Bowles MD Date of Service: 08/07/24 Procedure(s): MR knee LT wo con Accession Number(s): [id number] cc: Tammi Burgess MD; Keyon Bowles MD [...] 08/09/24 1053 DD/ 1458 TD/TT: 08/07/24 1507 Senior Manufacturing Technician: Procedure Note Donotuseinterpreter, Image - 08/09/[address] [address] Magnetic Resonance Report Signed Patient: Karen Og MMR#: [id number] 4 : 1970Acct:[id number] Age/Sex: 54 / FADM Date: 08/07/24 Loc: HO.MRI Attending Dr: Keyon Bowles MD Ordering Physician: Keyon Bowles MD Date of Service: 08/07/24 Procedure(s): MR knee LT wo con Accession Number(s): [id number] cc: Tammi Burgess MD; Keyon Bowles MD [...] 08/09/24 1053 DD/ 1458 TD/TT: 08/07/24 1507 Senior Manufacturing Technician: us [facility] External Provider IMG MRI PROCEDURES Final Result * US Pelvis Transvaginal (08/02/2024 4:26 PM EST) Anatomical Region Laterality Modality Pelvis Ultrasound 08/02/2024 4:26 PM EST Narrative 08/02/2024 4:27 PM EST [place] [address] Ultrasound Report Signed Patient: Karen Og MR#: [id number] 4 : 1970 Acct:[id number] Age/Sex: 54 / F ADM Date: 08/01/24 Loc: .US Attending Dr: Juan Espinoza MD Ordering Physician: Juan Espinoza MD Date of Service: 08/01/24 Procedure(s): US pelvic and transvaginal Accession Number(s): [id number] cc: Tammi Burgess MD; Juan Espinoza MD CLINICAL HISTORY: D25.9 - Leiomyoma of uterus, unspecified US pelvis transabdominal and transvaginal Comparison: US/MT/SR - US PELVIC AND TRANSVAGINAL - 09/28/23 [...] 08/02/24 1626 DD/ 1626 TD/TT: 08/02/24 162 Senior Manufacturing Technician: Procedure Note Donotuseinterpreter, Image - 08/02/2024 [place] [address] Ultrasound Report Signed Patient: Karen Og MMR#: [id number] 4 : 1970Acct:[id number] Age/Sex: 54 / FADM Date: 08/01/24 Loc: HO.US Attending Dr: Juan Espinoza MD Ordering Physician: Juan Espinoza MD Date of Service: 08/01/24 Procedure(s): US pelvic and transvaginal Accession Number(s): [id number] cc: Tammi Burgess MD; Juan Espinoza MD CLINICAL HISTORY: D25.9 - Leiomyoma of uterus, unspecified US pelvis transabdominal and transvaginal Comparison: US/MT/SR - US PELVIC AND TRANSVAGINAL - 09/28/23 [...] OV> 08/02/241625 DD/ 1626 TD/TT: 08/02/24 162 Senior Manufacturing Technician: [facility] External Provider IMG US PROCEDURES Final Result * Hm Colonoscopy (05/28/2022 1:55 PM EDT) Historical Provider HEALTH MAINTENANCE Final Result documented in this encounter Visit Diagnoses Not on filedocumented in this encounter Additional Health Concerns Assessment Noted Time PHQ-9 Depression Total Score: 5 10/20/19 24 10:39 AM EDT documented as of this encounter Care Teams Repairer Relationship Specialty Start Date End Date Tammi Burgess MD [address] [place] [address] PCP - General Internal Medicine 04/13/23 documented as of this encounter
--- OUTSIDE RECORDS SUMMARY | 2025-05-23 14:29 | XMS_ITS | Clinical Summary ---
Author Organization [facility] Address [address] [place] [address] [place] [address] Phone Care Team Providers Care Field Service Manager Name Role Phone Popeye Vera NP Primary Care Provider [phone] Social History Tobacco Use Types Packs/Day Years [...] file Medical Devices Not on file Insurance [facility] NON NSPG PCP SILVER CLARITY CONNECTORCARE [employer] NON NSPG PCP SILVER CLARITY CONNECTORCARE [employer] NON NSPG PCP SILVER CLARITY CONNECTORCARE [employer] NON NSPG PCP SILVER CLARITY CONNECTORCARE [employer] NON NSPG PCP SILVER CLARITY CONNECTORCARE [employer] NON NSPG PCP SILVER CLARITY CONNECTORCARE [employer]LL[employer] NON NSPG PCP SILVER CLARITY CONNECTORCARE [employer] NON NSPG PCP SILVER CLARITY CONNECTORCARE [employer] NON NSPG PCP SILVER CLARITY CONNECTORCARE [place] [phone] Care Teams Field Service Manager Relationship Specialty Start Date End Date Popeye Vera NP [address] [place] [address] PCP - General 12/16/18 Additional Source Comments The information contained in this document represents components of the legal health record. It is not the complete legal health record.[facility]
--- OUTSIDE RECORDS SUMMARY | 2025-05-23 14:29 | XMS_ITS | Encounter Summary ---
Author Organization [employer] Address [address] [facility] 7t [place] [address] Care Team Providers Care Watch Crystal Grinder Name Role Phone Tammi Burgess MD Primary Care Pro vider Reason for Visit * Reason Comments Med Refill Encounter Details Date Type Department Care Team (Late st Contact Info) Description 08/11/2024 Refill [facility] MEDICINE 230 [place] [address] Tammi Burgess MD 230 [place], [place] [phone] Social History Tobacco Use Types Packs/Day Years [...] Description 06/29/2025 9:30 AM EST Office Visit [facility] MEDICINE [address] [place] [address] Tammi Burgess MD [address] [place] [address] documented as of this encounter Visit Diagnoses Not on filedocumented in this encounter Additional Health Concerns Assessment Noted Time PHQ-9 Depression Total Score: 5 10/20/19 24 10:39 AM EDT documented as of this encounter Care Teams Watch Crystal Grinder Relationship Specialty Start Date End Date Tammi Burgess MD [address] [place] [address] PCP - General Internal Medicine 04/13/23 documented as of this encounter
--- OUTSIDE RECORDS SUMMARY | 2025-05-23 14:29 | XMS_ITS | Encounter Summary ---
Author Organization [facility] Address [address] [place] [address] 7 [place] [address] Care Team Providers Care Lab Support Service Tech Name Role Phone Charito Lawrence Primary Care Provider Tammi Downs MD Primary Care Pro vider Encounter Details Date Type Department Care Team (Latest Contact Info) Description 07/29/2018 Abstract [facility] CONVERSIONS Dental, Provider, DDS Social [...] EST Office Visit [facility] MEDICINE [address] [place] [address] Tammi Burgess MD [address] [place] [address] documented as of this encounter Visit Diagnoses Not on filedocumented in this encounter Care Teams Lab Support Service Tech Relationship Specialty Start Date End Date Charito Lawrence FNP PCP - General Family Medicine 05/17/21 04/12/23 Tammi Burgess MD [address] [place], [place] [phone] PCP - General Internal Medicine 04/13/23 documented as of this encounter
--- OUTSIDE RECORDS SUMMARY | 2025-05-23 14:29 | XMS_ITS | Encounter Summary ---
Author Organization [employer] Address [address] [place] [address] 7 [place] [address] Care Team Providers Care Tape Machine Tailer Name Role Phone Charito Lawrence [facility] Primary Care Provider Tammi Downs MD Primary Care Pro vider Encounter Details Date Type Department Care Team (Late st Contact Info) Description 03/31/2023 Abstract [facility] [address] [place] [address] Jamey Hussein, DMD [address] [place] [address] Social History Tobacco Use Types Packs/Day Years [...] EST Office [facility] [address] [place] [address] Tammi Burgess MD [address] [place] [address] documented as of this encounter Visit Diagnoses Not on filedocumented in this encounter Care Teams Tape Machine Tailer Relationship Specialty Start Date End Date Charito Lawrence FNP PCP - General Family Medicine 05/17/21 04/12/23 Tammi Burgess MD [address] [place] [address] PCP - General Internal Medicine 04/13/23 documented as of this encounter
--- OUTSIDE RECORDS SUMMARY | 2025-05-23 14:29 | XMS_ITS | Encounter Summary ---
Author Organization [facility] Address [address] [facility] [address] [place] [address] Phone Care Team Providers Care Roll Grinder Name Role Phone Popeye Vera STOCKHOLDER Primary Care Provider Encounter Details Date Type Department Care Team (Late st Contact Info) Description 12/17/2018 Ancillary Orders [facility] [address] [place] [address] [place] [address] Fab Berry DO [address] [place] [address] Palpitations Social History Tobacco Use Types Packs/Day [...] Palpitations documented in this encounter Care Teams Roll Grinder Relationship Specialty Start Date End Date Popeye Vera NP [address] [place] [address] PCP - General 12/16/18 documented as of this encounter Additional Source Comments The information contained in this document represents components of the legal health record. It is not the complete legal health record.[facility]
--- OUTSIDE RECORDS SUMMARY | 2025-05-23 14:29 | XMS_ITS | Clinical Summary ---
Author Organization [employer] Address [address] [place] [address] 7[address] [place] [address] Care Team Providers Care Jig And Fixture Repairer Name Role Phone Tammi Burgess MD [...] meal, and at bedtime. 1680 mL 04/28/20 Active pregabalin (Lyrica) 25 MG capsule TAKE 1 CAPSULE BY MOUTH TWICE DAILY 60 capsule 1 05/03/20 25 Active ondansetron (Zofran) 4 MG tablet Take 1 tablet (4 mg) by mouth every 8 (eight) hours if needed for nausea or vomiting for up to 20 days. 20 tablet 05/17/20 25 025 Active famotidine (Pepcid) 20 MG tablet Take 1 tablet (20 mg) by mouth Once per day. 30 tablet 05/17/20 25 026 Active pregabalin (Lyrica) 25 MG capsule Take [...] cancer: Never smoker Eye: 02/2023 WNL at [facility] Dental: up to date [...] Encounters Date Type Department Care Team Description 05/23/2025 Refill [facility] [address] [address] Tammi Eldridge MD Epigastric pain 05/19/[address] [address] Tammi Burgess MD Medication Question 05/17/2025 Orders Only [address] [address] Tammi Burgess MD Eosinophilia, unspecified type (Primary Dx) 05/17/2025 Orders Only GENERIC EXTERNAL DATA DEPARTMENT Provider, Generic External Data 05/03/[address] [address] Tammi Burgess MD 04/28/2025 10:20 AM EDT Office Visit [facility] [address] [address] Tammi Eldridge MD Epigastric pain 04/28/2025 Travel 04/17/2025 1:40 PM EDT Office Visit [address] [address] Kristal San ANP Rash (Primary Dx) 04/17/2025 Travel 04/14/2025 Results Follow-Up [facility] [address] [address] Shravan Dunne MD Leukocytes Stool Qualitative, Stool - Gastrointestinal panel, CBC auto differential, Comprehensive Metabolic Panel 04/12/2025 Orders Only [address] [address] Shravan Dunne MD 04/11/2025 7:20 PM EDT Office Visit [facility] [address] [address] Shravan Dunne MD Epigastric pain (Primary Dx) 04/11/2025 Travel 04/04/2025 Refill [facility] [address] [place], [place] [phone] Tammi Burgess MD 03/10/2025 Refill [facility] [address] [place] [address] Tammi Burgess MD Low back pain associated with a spinal disorder other than radiculopathy or spinal stenosis 03/10/[address] [address] Tammi Burgess MD Results 03/09/2025 Results Follow-Up [facility] [address] [facility] [place] [address] Tammi Burgess MD BI Mammogram Screening Tomosynthesis Bilateral 03/02/2025 1:30 PM EDT Office Visit [address] [address] Tammi Burgess MD Hyperlipidemia, unspecified hyperlipidemia type [...] Description 06/29/2025 9:30 AM EST Office Visit [facility] [address] [place] [address] Tammi Burgess MD [address] [place], [place] [phone] Health Maintenance Due Date Last Done Comments [...] Date/Time Associated Diagnosis Comments SLIDE REVIEW Routine 05/17/2025 7:46 AM EDT LIPASE Routine 05/17/2025 7:46 AM EDT MAGNESIUM Routine 05/17/2025 7:46 AM EDT BASIC METABOLIC PANEL Routine 05/17/2025 7:46 AM EDT HEPATIC FUNCTION PANEL Routine 7:46 AM EDT CBC WITH AUTO DIFFERENTIAL Routine 05/17/2025 7:46 AM EDT FL ESOPHAGUS BARIUM SWALLOW WITH AIR Routine [...] caries associated with failed or defective dental rastafari Full coverage crown needed for root canal-treated [...] to Health Maintenance Results * Slide Review (05/17/2025 7:46 AM EDT) Only the most recent of2 resultswithin the time period is included. Slide Review VERIFIED [facility] 05/17/2025 7:46 AM EDT 05/17/2025 7:50 AM EDT us Generic External Data Provider LAB BLOOD ORDERAB LES Final Result [facility] [address] [place] [phone] * (ABNORMAL) CBC auto differential (05/17/2025 7:46 AM EDT) Only the most recent of2 resultswithin the time period is included. White Blood Count 8.6 4.8 - 10.8 X10*3/uL [facility] Red Blood Count 4.11(L) 4.20 - 5.50 X10*6/uL [facility] Hemoglobin 12.8 12.0 - 16.0 g/dl [facility] Hematocrit 39.7 37.0 - 47.0 % [facility] Mean Corpuscular Volume 96.6 80.0 - 98.0 fL [facility] Mean Corpuscular Hemoglobin 31.1 27.0 - 33.0 pg [facility] Mean Corpuscular HGB Conc 32.2 31.0 - 35.0 g/dl [facility] Red Cell Distribution Width 14.6 11.0 - 16.0 % [facility] Platelet Count 166 160 - 400 X10*3/uL [facility] Mean Platelet Volume 9.8 9.4 - 12.3 fL [facility] Neutrophils Percent Auto 29.0(L) 45 - 73 % [facility] Imm Gran Pct Auto 0.2 0.0 - 0.4 % [facility] Lymphocytes Percent Auto 21.5 20 - 40 % [facility] Monocytes Percent Auto 7.5 2 - 11 % [facility] Eosinophils Percent Auto 41.2(H) 0 - 4 % [facility] Basophils Percent Auto 0.6 0 - 2 % [facility] NRBC Pct Auto 0.0 0.0 - 0.2 /100WBC [facility] Neutrophils Absolute Auto 2.5 2.0 - 8.3 x10*3/uL [facility] Imm Gran Abs Auto 0.02 0.00 - 0.03 X10*3/uL [facility] Lymphocytes Absolute Auto 1.9 1.2 - 4.9 X10*3/uL [facility] Monocytes Absolute Auto 0.7 0.1 - 1.2 X10*3/uL [facility] Eosinophils Absolute Auto 3.6(H) 0.0 - 0.4 X10*3/uL [facility] Basophils Absolute Auto 0.1 0.0 - 0.2 X10*3/uL [facility] NRBC Abs Auto 0.000 0.0 - 0.012 X10*3/uL [facility] 05/17/2025 7:46 AM EDT 05/17/2025 7:50 AM EDT us Generic External Data Provider LAB BLOOD ORDERAB LES Edited Result - Final [facility] [address] [place] [phone] * Magnesium (05/17/2025 7:46 AM EDT) Magnesium 2.0 1.6 - 2.6 mg/dL [facility] 05/17/2025 7:46 AM EDT 05/17/2025 7:50 AM EDT us Generic External Data Provider LAB BLOOD ORDERAB LES Final Result Performing Organization Address [facility]/ZIP Co de Phone Number [facility] [address] [place] [phone] * Lipase (05/17/2025 7:46 AM EDT) Lipase 43 8 - 78 U/L [facility] 05/17/2025 7:46 AM EDT 05/17/2025 7:50 AM EDT us Generic External Data Provider LAB BLOOD ORDERAB LES Final Result Performing Organization Address [facility] de Phone Number [facility] [address] [place] [phone] * Hepatic Function Panel (05/17/2025 7:46 AM EDT) Bilirubin, Total 0.4 0.0 - 1.0 mg/dL [facility] Bilirubin, Direct 0.1 0.0 - 0.5 mg/dL [facility] Aspartate Amino Transferase 28 5 - 31 U/L [facility] Alanine Aminotransferase 29 0 - 31 U/L [facility] Total Protein 7.1 6.5 - 8.0 g/dL [facility] Albumin Level 3.8 3.5 - 5.0 g/dL [facility] Alkaline Phosphatase 80 39 - 117 U/L [facility] 05/17/2025 7:46 AM EDT 05/17/2025 7:50 AM EDT us Generic External Data Provider LAB BLOOD ORDERAB LES Final Result Performing Organization Address [facility] Co de Phone Number [facility] [address] [place] [phone] * Basic Metabolic Panel (05/17/2025 7:46 AM EDT) Sodium 142 135 - 145 mmol/L [facility] Potassium 4.6 3.3 - 5.1 mmol/L [facility] Chloride 107 96 - 108 mmol/L [facility] Carbon Dioxide 28 22 - 29 mmol/L [facility] Anion Gap 12 12 - 20 [facility] Urea Nitrogen (BUN) 15 9 - 16 mg/dL [facility] Creatinine, Serum 0.75 0.5 - 1.4 mg/dL [facility] Creatinine Clr Calc Pharmacy 77.1 [facility] Comment:Provided height and weight: 165.1 cm,65.771 kg.eGFR (calculated from the MDRD study equation) and eCrCl(calculated from the Cockcroft-Gault equation) are based ondifferent parameters and may not yield comparable results.If eCrCl result is absurd, please check patient'sheight/weight. Estimated Glomerular Filt Rate >60 [facility] Comment:Chronic Kidney Disea se: Estimated GFR < 60 mL/min/[id number] Kidney Disease: Estimated GFR < 15 mL/min/1.73m2 Glucose 86 60 - 115 mg/dL [facility] Calcium 9.2 8.4 - 10.2 mg/dL [facility] 05/17/2025 7:46 AM EDT 05/17/2025 7:50 AM EDT us Generic External Data Provider LAB BLOOD ORDERAB LES Final Result [facility] [address] [place] [phone] * FL Esophagus Barium Swallow w/Air (04/18/2025 9:40 AM EDT) Anatomical Region Laterality Modality Head, Neck Radiographic Rachel ging 04/18/2025 9:40 AM EDT Narrative 04/18/2025 11:37 AM EDT [address] [address] Fluoroscopy Report Signed Patient: Karen Og MR#: [id number] 4 : 1970 Acct:[id number] Age/Sex: 54 / F ADM Date: 04/18/25 Loc: HO.XRAY Attending Dr: Tammi Sorenson MD Ordering Physician: Tammi Burgess MD Date of Service: 04/18/25 Procedure(s): FL barium swallow with air Accession Number(s): [id number] cc: Tammi Burgess MD Reason for Exam: [...] 04/18/25 1134 DD/ 0940 TD/TT: 04/18/25 0949 Harness Puller: Procedure Note Donotuseinterpreter, Image - 04/18/2025 [place] [address] Fluoroscopy Report Signed Patient: Karen Og MMR#: [id number] 4 : 1970Acct:[id number] Age/Sex: 54 / FADM Date: 04/18/25 Loc: HO.XRAY Attending Dr: Tammi Sorenson MD Ordering Physician: Tammi Burgess MD Date of Service: 04/18/25 Procedure(s): FL barium swallow with air Accession Number(s): [id number] cc: Tammi Burgess MD Reason for Exam: [...] 04/18/25 1134 DD/ 0940 TD/TT: 04/18/25 0949 Harness Puller: us Tammi Sorenson MD IMG FLUOROSCOPY P ROCEDURES Final Result * Leukocytes Stool Qualitative (04/13/2025 10:00 AM EDT) Leukocytes Stool Qualitative NEGATIVE NEGATIVE [facility] Stool 04/13/2025 10:0 0 AM EDT 04/13/2025 4:48 PM EDT us Shravan Dunne MD LAB BODY FLUIDS AND STOOLS ORDER JEROMY Final Result [facility] [address] [place] [phone] * Stool - Gastrointestinal panel (04/13/2025 10:00 AM EDT) Campylobacter Not Detected Not Detect. [facility] Plesiomonas shigelloides Not Detected Not Detect. [facility] Salmonella Not Detected Not Detect. [facility] Vibrio Not Detected Not Detect. [facility] Vibrio cholerae Not Detected Not Detect. [facility] YERSINIA ENTEROCOLITICA Not Detected Not Detect. [facility] Enteroaggregative E. coli (EAEC) Not Detected Not Detect. [facility] Enteropathogenic E. coli (EPEC) Not Detected Not Detect. [facility] Enterotoxigenic E. coli (ETEC) lt/st Not Detected Not Detect. [facility] Shiga-like toxin-producing E. coli (STEC) stx1/stx2 Not Detected Not Detect. [facility] E coli O157 Not applicable Not Detect. [facility] Comment:E. coli containing t he O157 antigen are a subset ofShiga-like toxin- producing E. coli (STEC). Shigella/Enteroinvasive E. coli (EIEC) Not Detected Not Detect. [facility] Cryptosporidium Not Detected Not Detect. [facility] Cyclospora cayetanensis Not Detected Not Detect. [facility] Entamoeba histolytica Not Detected Not Detect. [facility] Giardia lamblia Not Detected Not Detect. [facility] Adenovirus F 40/41 Not Detected Not Detect. [facility] Astrovirus Not Detected Not Detect. [facility] Norovirus GI/GII Not Detected Not Detect. [facility] Rotavirus A Not Detected Not Detect. [facility] Sapovirus Not Detected Not Detect. [facility] Comment: All results must be correlated [...] assay is performed by Multiplexed PCR, utilizing [employer] Array. Stool Rectal contents / Unknown 04/13/2025 10:00 AM EDT 04/13/2025 4:48 PM EDT Shravan Dunne MD LAB MICROBIOLOGY - GENERAL ORDER JEROMY Final Result Performing Organization Address City/[facility]/ZIP Co de Phone Number [facility] [address] [place] [phone] * Helicobacter pylori??Antigen, EIA, Stool (04/13/2025 10:00 AM EDT) H pylori Ag Stool SEE NOTE [facility] Comment:HELICOBACTER PYLORI AG, EIA, STOOL Micro Number: [id number] Test Status: Final Specimen Source: Stool Specimen Quality: Adequate H.pylori Ag: Not Detected Antimicrobials, proton pump inhibitors, and bismuth preparations inhibit H. pylori and ingestion up to two weeks prior to testing may cause false negative results. If clinically indicated the test should be repeated on a new specimen obtained two weeks after discontinuing treatment. Reference Range: Not DetectedTHIS TEST WAS PERFORMED AT:[facility] [place] [phone] BLANCAS MD Stool Rectal contents / Unknown 04/13/2025 10:00 AM EDT 04/13/2025 4:48 PM EDT Shravan Dunne MD LAB BODY FLUIDS AND STOOLS ORDER JEROMY Final Result Performing Organization Address City/[facility] Co de Phone Number [facility] [address] [place] [phone] * (ABNORMAL) Comprehensive Metabolic Panel (04/12/2025 10:09 AM EDT) Sodium 141 135 - 145 mmol/L [facility] Potassium 4.5 3.3 - 5.1 mmol/L [facility] Chloride 104 96 - 108 mmol/L [facility] Carbon Dioxide 30(H) 22 - 29 mmol/L [facility] Anion Gap 12 12 - 20 [facility] Urea Nitrogen (BUN) 15 9 - 16 mg/dL [facility] Creatinine, Serum 0.69 0.5 - 1.4 mg/dL [facility] Estimated Glomerular Filt Rate >60 [facility] Comment:Chronic Kidney Disea se: Estimated GFR < 60 mL/min/[id number] Kidney Disease: Estimated GFR < 15 mL/min/1.73m2 Glucose 93 60 - 115 mg/dL [facility] Calcium 9.2 8.4 - 10.2 mg/dL [facility] Bilirubin, Total 0.3 0.0 - 1.0 mg/dL [facility] Aspartate Amino Transferase 23 5 - 31 U/L [facility] Alanine Aminotransferase 11 0 - 31 U/L [facility] Total Protein 6.9 6.5 - 8.0 g/dL [facility] Albumin Level 3.8 3.5 - 5.0 g/dL [facility] Alkaline Phosphatase 66 39 - 117 U/L [facility] Blood Venous blood specimen / Unknown 04/12/2025 10:09 AM EDT 04/12/2025 11:14 AM EDT us Shravan Dunne MD LAB BLOOD ORDERABLES Final Resul t Performing Organization Address City/State/[facility] Co de Phone Number [facility] [address] [place] [phone] * US Pelvis Transvaginal (02/27/2025 4:30 PM EDT) Anatomical Region Laterality Modality Pelvis Ultrasound 02/27/2025 4:30 PM EDT Narrative 02/27/2025 5:46 PM EDT [address] [address] Ultrasound Report Signed Patient: Karen Og MR#: [id number] 4 : 1970 Acct:[id number] Age/Sex: 54 / F ADM Date: 02/27/25 Loc: HO.US Attending Dr: Juan Espinoza MD Ordering Physician: Juan Espinoza MD Date of Service: 02/27/25 Procedure(s): US pelvic and transvaginal Accession Number(s): [id number] cc: Tammi Burgess MD; Juan Espinoza MD [...] 02/27/25 1743 DD/ 1630 TD/TT: 02/27/25 1645 Harness Puller: Procedure Note Donotuseinterpreter, Image - 02/27/[address] [address] Ultrasound Report Signed Patient: Karen Og MMR#: [id number] 4 : 1970Acct:[id number] Age/Sex: 54 / FADM Date: 02/27/25 Loc: .US Attending Dr: Juan Espinoza MD Ordering Physician: Juan Espinoza MD Date of Service: 02/27/25 Procedure(s): US pelvic and transvaginal Accession Number(s): [id number] cc: Tammi Burgess MD; Juan Espinoza MD [...] 02/27/25 1743 DD/ 1630 TD/TT: 02/27/25 1645 Harness Puller: us [facility] External Provider IMG US PROCEDURES Final Result * BI Mammogram Screening Tomosynthesis Bilateral (02/27/2025 2:00 PM EDT) Anatomical Region Laterality Modality Breast Bilateral Mammography 02/27/2025 2:00 PM EDT Narrative 03/09/2025 8:24 AM EDT [address] [place] [address] Mammography Report Signed Patient: Karen Og MR#: [id number] 4 : 1970 Acct:[id number] Age/Sex: 54 / F ADM Date: 02/27/25 Loc: HO.MAMMO Attending Dr: Tammi Sorenson MD Ordering Physician: Tammi Burgess MD Re sults: 1Negative Date of Service: 02/27/25 Follow Up: 1 Year From Orig inal Mammogram Procedure(s): MM tomosynthesis screening BI Accession Number(s): [id number] cc: Tammi Burgess MD EXAMINATION: MM SCREENING [...] 03/09/25 0821 DD/ 1400 TD/TT: 02/27/25 1412 Harness Puller: Procedure Note Donotuseinterpreter, Image - 03/09/20[facility] [address] [place] [address] Mammography Report Signed Patient: Karen Og MMR#: [id number] 4 : 1970Acct:[id number] Age/Sex: 54 / FADM Date: 02/27/25 Loc: HO.MAMMO Attending Dr: Tammi Sorenson MD Ordering Physician: Tammi Burgess sults: 1Negative Date of Service: 02/27/25Follow Up: 1 Year From Orig inal Mammogram Procedure(s): MM tomosynthesis screening BI Accession Number(s): [id number] cc: Tammi Burgess MD EXAMINATION: MM SCREENING [...] 03/09/25 0821 DD/ 1400 TD/TT: 02/27/25 1412 Harness Puller: us Tammi Sorenson MD IMG BI PROCEDURES Final Result * Hepatitis C Antibody with Reflex to HCV, RNA, Quantitative, Real-Time PCR (02/06/2025 10:04 AM EDT) Pathologist [facility] Hepatitis C Antibody Nonreactive Nonreactive [facility] Comment:Antibodies to HCV no t detected; does not exclude early acuteHCV infection. Blood Venous blood specimen / Unknown 02/06/2025 10:04 AM EDT 02/06/2025 11:11 AM EDT us Tammi Sorenson MD LAB BLOOD ORDERAB LES Final Result [facility] [address] [place] [phone] * HIV-1/2 Antigen and Antibodies, Fourth Generation, with Reflexes (02/06/2025 10:04 AM EDT) HIV AB/AG Nonreactive Nonreactive [facility] Comment:HIV-1 p24 Ag and/or HIV-1/HIV-2 Ab not detected.A test result that is nonreactive does not exclude thepossibility of exposure to or infection with HIV-1 and/orHIV-2. Nonreactive results in this assay for individualswith prior exposure to HIV-1 and/or HIV-2 may be due toantigen and antibody levels that are below the limit ofdetection of this assay.The [employer] HIV Ag/Ab Combo assay result andsupplemental assay results should be interpreted inconjunction with the patient's clinical presentation,history and other laboratory results. If the results areinconsistent with clinical evidence, additional testing issuggested to confirm the result. Blood Venous blood specimen / Unknown 02/06/2025 10:04 AM EDT 02/06/2025 11:11 AM EDT Tammi Sorenson MD LAB BLOOD ORDERAB LES Final Result Performing Organization Address City/[facility]/ZIP Co de Phone Number [facility] [address] [place] [phone] * Hemoglobin A1c (02/06/2025 10:04 AM EDT) Hemoglobin A1c 5.5 <6.0 % [facility] Comment:Hemoglobin A1C Refer ence Range Adults: 4.8 - 6.0 % Non diabetic: < 6.0 % Goal: < 7.0 %Additional Action Suggested: > 8.0 %Note: Hemoglobin A1c results are invalid for patients with abnormal amounts of HbF. Blood transfusions may impact the HbA1c concentration in the patient sample. Estimated Average Glucose 111 mg/dL [facility] Comment:eAG = Estimated ave rage glucose which is %A1C expressed asaverage glucose, using the formula of the [id number]-YqdbzpgNzfogkb Glucose study (ADAG), Diabetes Care, Vol.31,#8,Aug. 2007 Blood Venous blood specimen / Unknown 02/06/2025 10:04 AM EDT 02/06/2025 11:11 AM EDT Tammi Sorenson MD LAB BLOOD ORDERAB LES Final Result Performing Organization Address City/[facility]/ZIP Co de Phone Number [facility] [address] [place] [phone] * Hm Colonoscopy (05/28/2022 1:55 PM EDT) Historical Provider HEALTH MAINTENANCE Final Result * HPV E6/E7 RFLX JACOB 16 18/45 (08/15/2021 1:40 PM EST) HPV 16 RNA [facility] HPV 18/45 RNA [facility] HPV E6 E7 ADD [facility] HPV mRNA E6/E7 rflx Not Detected Not Detected [facility] Comment: Methodology: Agricultural Scientist-Mediated Amplification This assay detects E6/E7 viral messenger RNA (mRNA) from 14 high-risk HPV types (16,18,31,33,35,39,45,51,52,56,58,59,66,68). The analytical performance characteristics of this assay have been determined by [employer]. The modifications have not been cleared or approved by the FDA. This assay has been validated pursuant to the CLIA regulations and is used for clinical purposes. For additional information, please refer to http://education.[employer]/faq/KHW337l2 (This link if provided for information/ educational purposes only.) THIS TEST WAS PERFORMED AT: [facility] [address] [address] AMY BLANCAS MD 08/15/2021 1:40 PM EST us Historical Provider HISTORICAL/NON ORDERABLE LABS Final Result [facility] [address] * THINPREP PAP (01/11/2021 11:51 AM EDT) Pathologist [facility] Clinical Information: None given [facility] COMMENT SEE COMMENT [facility] [...] along with historic and current clinical information. Screen Operator : SEE COMMENT [facility] Comment: GSG, CT(ASCP) CT screening location: [address] [address] Interpretation/R esult: Negative for intraepithelial lesion or malignancy. [facility] LMP: NONE GIVEN [facility] Prev. BX: NONE GIVEN [facility] Prev. PAP: NONE GIVEN [facility] SOURCE: None given [facility] Statement Of Adequacy: SEE COMMENT [facility] Comment: Satisfactory for evaluation. Endocervical/transformation zone component present. 01/11/2021 11:5 1 AM EDT us Historical Provider MD LAB PATHOLOGY ORDERABLES Final Result [facility] [address] [place] [address], from Last 3 Months or Most Recently Relevant to Health Maintenance Insurance [facility] C3 DENTAL-[facility] MEDICAID STAND ADULT DENTAL - HSN FULL (MEDICAID) Care Teams Jig And Fixture Repairer Relationship Specialty Start Date End Date Tammi Burgess MD [address] [place] [phone] PCP - General Internal Medicine 04/13/23
--- OUTSIDE RECORDS SUMMARY | 2025-05-23 14:30 | XMS_ITS | Encounter Summary ---
Author Organization [employer] Address [address] [place] [address] 7 [place] [address] Care Team Providers Care Market Intelligence Consultant Name Role Phone Tammi Burgess MD Primary Care Pro vider Reason for Visit * Reason Onset Date Comments Nurse Triage 07/16/2023 Encounter Details Date Type Department Care Team ([facility] st Contact Info) Description 07/16/2023 Telephone [facility] [address] [place] [address] Tammi Burgess MD [address] [place] [address] Nurse Triage Social History Tobacco Use Types [...] 07/16/2023 4:32 PM EST Triage call with Leslie Director Of User Experience ID [id number] Pt requests for Pt to speak for Pt. Pt has acute right knee pain. Pt has been seen in [facility] 07/09/23. Pt was prescribed tylenol 500mg, brace, voltaren gel and xrays. Xrays have been done. Pt isasking what xray results are service writer advised that there is evidence of [...] 06/29/2025 9:30 AM EST Office Visit [facility] [address] [place] [address] Tammi Burgess MD [address] [place], [place] [phone] documented as of this encounter Visit Diagnoses Not on filedocumented in this encounter Care Teams Market Intelligence Consultant Relationship Specialty Start Date End Date Tammi Burgess MD [address] [place] [phone] PCP - General Internal Medicine 04/13/23 documented as of this encounter
--- OUTSIDE RECORDS SUMMARY | 2025-05-23 14:30 | XMS_ITS | Encounter Summary ---
Author Organization [employer] Address [address] [facility] 7t [place] [address] Care Team Providers Care Retail Interior Designer Name Role Phone Tammi Burgess MD Primary Care Pro vider Reason for Visit * Reason Comments Med Refill Encounter Details Date Type Department Care Team ([facility] st Contact Info) Description 05/23/2025 Refill [facility] [address] [place], [place] [phone] Tammi Eldridge MD [address] [place], [place] [phone] Epigastric pain Social History Tobacco Use Types Packs/Day Years [...] Description 06/29/2025 9:30 AM EST Office Visit [facility] [address] [place] [phone] Tammi Burgess MD [address] [place] [phone] documented as of this encounter Visit Diagnoses Diagnosis Epigastric pain Abdominal pain, epigastric documented in this encounter Additional Health Concerns Assessment Noted Time PHQ-9 Depression Total Score: 8 12/27/19 25 3:12 PM EDT documented as of this encounter Care Teams Retail Interior Designer Relationship Specialty Start Date End Date Tammi Burgess MD [address] [place] [phone] PCP - General Internal Medicine 04/13/23 documented as of this encounter
--- OUTSIDE RECORDS SUMMARY | 2025-05-23 14:30 | XMS_ITS | Encounter Summary ---
Author Organization [employer] Address [address] [facility] 7t [place] [address] Care Team Providers Care Medical Care Evaluation Specialist Name Role Phone Tammi Burgess MD Primary Care Pro vider Encounter Details Date Type Department Care Team ([facility] st Contact Info) Description 05/17/2025 Orders Only [facility] [address] [place], [place] [phone] Tammi Burgess MD [address] [place], [place] [phone] Eosinophilia, unspecified type (Primary Dx) Social History Tobacco Use Types [...] Progress Notes * Tammi Sorenson MD - 05/17/2025 3:36 PM EDT Noted from labs done at ED today 05/17/25 to have in CBC AEC 3600 41.2% <--3600 34.7% in 04/12/2025 at [facility] I called pt reports having 6 weeks of ongoing -persistent GERD ,epigastric burning pain described as intense associated w nausea and sometimes vomit due to burning pain ,denies diarrhea ,denies othertype of abdominal pain ,denies respiratory symptoms no symptoms. Denies fever nor chills ,deniesLDN Reports skin rash in her right leg and arm total of 3 to 4 lesion seen as well last month at [facility] thought likley tinea pxed topical antifungal w no improvement Pt has been pxed omeprazole titrated up to 40 mg BID ,Maalox Pt went today to ED for ongoing epigastric burning pain pxed lidocaine HCl [Lidocaine Viscous] 2 % solution not started yet,today also had chem wnl, lipase wnl Recently had H pylori neg Pt has apt w GI at [facility] in 07/2025 I Am wondering if new acute severe esophagitis.gastritis symptoms are associated w new noted eosinophilia since the time pt presented w GI symptoms as well reports skin rash Pt denies any recent trips , no apparent parasitic infection from history ,no diarrhea From med review pt was taking OTC Mushroom coffee started 1 month prior pain started and stopped 1 mo ago w no resolution of symptoms ,also I prescribed at last apt in 02/2025 Lyrica and omega 3 . I could not find in the literature that any of those 3 meds are usually associated w eosinophilic esophagitis but given are the only new meds will need to r/o as possible cause -continue omeprazole 40 BID+ Maalox -start lidocaine HCl [Lidocaine Viscous] 2 % solution pxed in ED -pxed today Famotidine 20 mg to take daily PRN only and pxed zofran PRN for nausea -stop NSAIDS- pt not taking celecoxib -order today ova and parasite x3 ,strongyloides -stop omega 3 and will take today lyrica 1 tab HS x3 nights and then stop -MA will try to get ap w me as soon as possible -I called today to [facility] GI office to try to get earlier apt for her to r/o eosinophilic esophagitis given if dxed topical steroids may be needed -alarm signs and symptoms discussed w pt , after stopping meds I am planning to repeat CBC in 3-4 weeks , if no improve,stopping above meds will need to consider further hematologic evaluation and autoimmune evaluation -Diet changes advised and HOB elevation documented in this encounter Plan of Treatment Upcoming Encounters Date Type Department Care Team (Late st Contact Info) Description 06/29/2025 9:30 AM EST Office Visit [facility] [address] [place] [address] Tammi Burgess MD [address] [place] [address] Scheduled Orders Name Type Priority Associated Diagnoses Orde r Schedule Ova and Parasites Microbiology Routine Eosinophilia, unspecified type Expected: 05/17/2025 (Approximate), Expires: 05/17/2026 Ova and Parasites Microbiology Routine Eosinophilia, unspecified type Expected: 05/17/2025 (Approximate), Expires: 05/17/2026 Ova and Parasites Microbiology Routine Eosinophilia, unspecified type Expected: 05/17/2025 (Approximate), Expires: 05/17/2026 Strongyloides Antibody (IgG) Lab Routine Eosinophilia, unspecified type Expected: 05/17/2025 (Approximate), Expires: 05/17/2026 documented as of this encounter Visit Diagnoses Diagnosis Eosinophilia, unspecified type- Primary documented in this encounter Additional Health Concerns Assessment Noted Time PHQ-9 Depression Total Score: 8 12/27/19 25 3:12 PM EDT documented as of this encounter Care Teams Medical Care Evaluation Specialist Relationship Specialty Start Date End Date Tammi Burgess MD [address] [place] [phone] PCP - General Internal Medicine 04/13/23 documented as of this encounter
--- OUTSIDE RECORDS SUMMARY | 2025-05-23 14:30 | XMS_ITS | Encounter Summary ---
Author Organization [employer] Address [address] [place] [address] 7 [place] [address] Care Team Providers Care Operational Meteorologist Name Role Phone Tammi Burgess MD Primary Care Pro vider Reason for Referral * Consultation (Routine) - Closed Specialty Diagnoses / Procedures Referred By Contac t Referred To Contact Orthopaedic Surgery Diagnoses Knee pain, unspecified chronicity, unspecified laterality Tammi Burgess MD [address] [place] [address] Phone: tel: fax: [facility] [address] [place] [address] Phone: tel: Referral ID Status Reason Start Date Expiration Date V isits Requested Visits Authorized [id number] Closed Specialty Services Required 11/24/2024 11/24/2025 6 6 Encounter Details Date Type Department Care Team (Late st Contact Info) Description 12/07/2024 Orders Only [facility] MED[facility] [address] [place] [phone] Tammi Burgess MD [address] [place], [place] [phone] Knee pain, unspecified chronicity, unspecified laterality (Primary [...] 06/29/2025 9:30 AM EST Office Visit [facility] [address] [place] [address] Tammi Burgess MD [address] [place] [address] Scheduled Referrals Name Type Priority Associated Diagnoses [...] documented as of this encounter Care Teams Operational Meteorologist Relationship Specialty Start Date End Date Tammi Burgess MD [address] [place] [phone] PCP - General Internal Medicine 04/13/23 documented as of this encounter
--- OUTSIDE RECORDS SUMMARY | 2025-05-23 14:30 | XMS_ITS | Encounter Summary ---
Author Organization [employer] Address 75 [facility] 7t [place] [address] Care Team Providers Care Rental Management Trainee Name Role Phone Tammi Burgess MD Primary Care Pro vider Encounter Details Date Type Department Care Team (Latest Contact Info) Description 04/14/2025 Results Follow-Up [facility] [address] [place] [address] Shravan Dunne MD [address] [place] [address] Leukocytes Stool Qualitative, Stool - Gastrointestinal panel, [...] 9:30 AM EST Office Visit [facility] [address] [place] [phone] Tammi Burgess MD [address] [place] [address] documented as of this encounter Visit Diagnoses Not on filedocumented in this encounter Additional Health Concerns Assessment Noted Time PHQ-9 Depression Total Score: 8 12/27/19 25 3:12 PM EDT documented as of this encounter Care Teams Rental Management Trainee Relationship Specialty Start Date End Date Tammi Burgess MD [address] [place] [phone] PCP - General Internal Medicine 04/13/23 documented as of this encounter
--- OUTSIDE RECORDS SUMMARY | 2025-05-23 14:30 | XMS_ITS | Encounter Summary ---
Author Organization [employer] Address 75 [facility] 7t [place] [address] Care Team Providers Care Cattle Examiner Name Role Phone Tammi Burgess MD Primary Care Pro vider Encounter Details Date Type Department Care Team (Late st Contact Info) Description 08/06/2023 Orders Only [facility] MED[facility] [address] [place], [place] [phone] Judy Prieto MD [address] [place], [place] [phone] Acute pain of right knee (Primary Dx); [...] EST Office Visit [facility] [address] [place] [phone] Tammi Burgess MD [address] [place] [address] documented as of this encounter Visit Diagnoses Diagnosis Acute pain of right knee- Primary Effusion of right knee Dislocation of right knee with medial meniscus tear, initial encounter documented in this encounter Additional Health Concerns Assessment Noted Time PHQ-9 Depression Total Score: 0 07/23/20 11:15 AM EST documented as of this encounter Care Teams Cattle Examiner Relationship Specialty Start Date End Date Tammi Burgess MD [address] [place] [phone] PCP - General Internal Medicine 04/13/23 documented as of this encounter
--- OUTSIDE RECORDS SUMMARY | 2025-05-23 14:30 | XMS_ITS | Encounter Summary ---
Author Organization [employer] Address [address] [facility] 7t [place] [address] Care Team Providers Care Health Records Technology Teacher Name Role Phone Tammi Burgess MD Primary Care Pro vider Reason for Visit * Reason Onset Date Comments Medication Question 05/19/2025 Encounter Details Date Type Department Care Team ([facility] st Contact Info) Description 05/19/2025 Telephone [facility] MEDICINE [address] [place] [address] Tammi Burgess MD [address] [place], [place] [phone] Medication Question Social History Tobacco Use Types Packs/Day Years [...] encounter Miscellaneous Notes * Telephone Encounter - Laura Cortez - 05/19/2025 4:07 PM EDT Patient walked in confused. Per Patient she scott to the ED for gastritis pain. Per was prescribed Lidocaine HCI - 2% solution at ED. Per Patient she took medication at ED and they had her swallow hemedication. If the script sent the pharmacy indicated to Patient that she should not swallow it. Patient concerned wrong script was sent. FD advised Patient that ED would have to make change if that was the case. Per Patient PCP spoke to her and PCP should make the change. documented in this encounter Plan of Treatment Upcoming Encounters Date Type Department Care Team (Late st Contact Info) Description 06/29/2025 9:30 AM EST Office Visit [facility] MEDICINE [address] [place] [phone] Tammi Burgess MD [address] [place], [place] [phone] documented as of this encounter Visit Diagnoses Not on filedocumented in this encounter Additional Health Concerns Assessment Noted Time PHQ-9 Depression Total Score: 8 12/27/19 25 3:12 PM EDT documented as of this encounter Care Teams Health Records Technology Teacher Relationship Specialty Start Date End Date Tammi Burgess MD [address] [place] [phone] PCP - General Internal Medicine 04/13/23 documented as of this encounter
== END 2025-05-23 09:35 | disposition home or self-care (01) ==
LOC: HO.LNP 09:34
PROVIDERS: Visit Provider Student in an Organized Health Care Education/Training Program
DX: D72.10 Eosinophilia, unspecified (principal)
CPT/HCPCS: 87177; 87209

== ENCOUNTER 2025-05-24 16:15 | Outpatient (REF) | payer MEDICAID, SELFPAY ==
--- OUTSIDE RECORDS SUMMARY | 2025-05-24 20:11 | XMS_ITS | Encounter Summary ---
Author Organization [employer] Address 75 [facility] 7t [place] [address] Care Team Providers Care Machining Supervisor Name Role Phone Tammi Burgess MD Primary Care Pro vider Reason for Visit * Reason Comments Med Refill Encounter Details Date Type Department Care Team (Late st Contact Info) Description 08/11/2024 Refill [facility] MED[facility] [address] [place] [address] Tammi Burgess MD [address] [place], [place] [phone] Social History Tobacco Use Types Packs/Day Years [...] Description 06/29/2025 9:30 AM EST Office Visit [facility] MED[facility] [address] [place] [phone] Tammi Burgess MD [address] [place] [phone] documented as of this encounter Visit Diagnoses Not on filedocumented in this encounter Additional Health Concerns Assessment Noted Time PHQ-9 Depression Total Score: 5 10/20/19 24 10:39 AM EDT documented as of this encounter Care Teams Machining Supervisor Relationship Specialty Start Date End Date Tammi Burgess MD [address] [place] [phone] PCP - General Internal Medicine 04/13/23 documented as of this encounter
--- OUTSIDE RECORDS SUMMARY | 2025-05-24 20:11 | XMS_ITS | Encounter Summary ---
Author Organization [employer] Address [address] [facility] 7t [place] [address] Care Team Providers Care Inspection Engineer Name Role Phone Tammi Burgess MD Primary Care Pro vider Encounter Details Date Type Department Care Team (Late st Contact Info) Description 08/06/2023 Orders Only [facility] MED[facility]INE [address] [place], [place] [phone] Judy Prieto MD 230 [place], [place] [phone] Acute pain of right knee (Primary Dx); [...] 9:30 AM EST Office Visit [facility] MED[facility] [address] [place] [phone] Tammi Burgess MD [address] [place] [address] documented as of this encounter Visit Diagnoses Diagnosis Acute pain of right knee- Primary Effusion of right knee Dislocation of right knee with medial meniscus tear, initial encounter documented in this encounter Additional Health Concerns Assessment Noted Time PHQ-9 Depression Total Score: 0 07/23/20 11:15 AM EST documented as of this encounter Care Teams Inspection Engineer Relationship Specialty Start Date End Date Tammi Burgess MD [address] [place] [phone] PCP - General Internal Medicine 04/13/23 documented as of this encounter
--- OUTSIDE RECORDS SUMMARY | 2025-05-24 20:11 | XMS_ITS | Clinical Summary ---
Author Organization [employer] Address [address] [place] [address] 7t [place] [address] Care Team Providers Care Tail Worker Name Role Phone Tammi Burgess MD Primary [...] cancer: Never smoker Eye: 02/2023 WNL at [facility] Dental: up to date Hernia [...] Type Department Care Team Description 05/23/2025 [facility]ill [facility] [address] [address] Tammi Eldridge MD Epigastric pain 05/19/[address] [address] Tammi Burgess MD Medication Question 05/17/2025 Orders Only [address] [address] Tammi Burgess MD Eosinophilia, unspecified type (Primary Dx) 05/17/2025 Orders Only GENERIC EXTERNAL DATA DEPARTMENT Provider, Generic External Data 05/03/[address] [address] Tammi Burgess MD 04/28/2025 10:20 AM EDT [facility] [address] [address] Tammi Eldridge MD Epigastric pain 04/28/2025 Travel 04/17/2025 1:40 PM EDT Office Visit [address] [address] Kristal San ANP Rash (Primary Dx) 04/17/2025 Travel 04/14/2025 Results [facility] [address] [address] Shravan Dunne MD Leukocytes Stool Qualitative, Stool - Gastrointestinal panel, CBC auto differential, Comprehensive Metabolic Panel 04/12/2025 Orders Only [address] [address] Shravan Dunne MD 04/11/2025 7:20 PM EDT [facility] [address] [address] Shravan Dunne MD Epigastric pain (Primary Dx) 04/11/2025 Travel 04/04/2025 Refill [facility] [address] [place], [place] [phone] Tammi Burgess MD 03/10/2025 Refill [facility] [address] [place] [address] Tammi Burgess MD Low back pain associated with a spinal disorder other than radiculopathy or spinal stenosis 03/10/[address] [address] Tammi Burgess MD Results 03/09/2025 Results Follow-Up [facility] [address] [place] [address] Tammi Burgess MD BI Mammogram Screening Tomosynthesis Bilateral 03/02/2025 1:30 PM EDT Office Visit [address] [address] Tammi Burgess MD Hyperlipidemia, unspecified hyperlipidemia type [...] Description 06/29/2025 9:30 AM EST Office Visit [facility] [address] [place] [address] Tammi Burgess MD [address] [place], [place] [phone] Health Maintenance Due Date Last Done Comments [...] Procedure Name Priority Date/Time Associated Diagnosis Comments OVA AND PARASITES, CONC AND PERM SMEAR Routine 05/23/2025 3:48 PM EDT Eosinophilia, unspecified type STRONGYLOIDES AB IGG Routine 05/18/2025 9:31 AM EDT Eosinophilia, unspecified type SLIDE REVIEW Routine 05/17/2025 7:46 AM EDT [...] caries associated with failed or defective dental mormon Full coverage crown needed for root canal-treated [...] Recently Relevant to Health Maintenance Results * Ova and Parasites (05/23/2025 3:48 PM EDT) Ova and Parasite Trichrome TNP [facility] Comment:DUPLICATE LEAT Stool Rectal contents / Unknown 05/23/2025 3:48 PM EDT 05/23/2025 3:49 PM EDT us Tammi Sorenson MD LAB MICROBIOLOGY - GENERAL ORDERABLES Final Result [facility] [address] [place] [phone] * Strongyloides Antibody (IgG) (05/18/2025 9:31 AM EDT) Pathologist [facility] Strongyloides Antibody IgG NEGATIVE [facility] Comment:REFERENCE RANGE: NEG ATIVEStrongyloides stercoralis is a parasiticNematode found in tropical and subtropicalregions. Because of low larval densities infeces, stool examination is a relativelyinsensitive diagnostic test; antibody detectionoffers increased sensitivity. Patients withlatent infections who are immunosuppressed orreceiving immunosuppressive therapy are at riskof life- threatening hyperinfection. Significantcrossreactivity may be observed in otherhelminth infections.THIS TEST WAS PERFORMED AT:[employer] [id number] SARY LOPEZ [phone] JOHNSTON MD,PHD,ESTHER Blood Venous blood specimen / Unknown 05/18/2025 9:31 AM EDT 05/18/2025 11:42 AM EDT us Tammi Sorenson MD LAB BLOOD ORDERAB LES Final Result Performing Organization Address City/[facility]/ZIP Co de Phone Number [facility] [address] [place] [phone] * Slide Review (05/17/2025 7:46 AM EDT) Only the most recent of2 resultswithin the time period is included. Slide Review VERIFIED [facility] 05/17/2025 7:46 AM EDT 05/17/2025 7:50 AM EDT us Generic External Data Provider LAB BLOOD ORDERAB LES Final Result Performing Organization Address [facility] Co de Phone Number [facility] [address] [place] [phone] * (ABNORMAL) CBC auto differential (05/17/2025 7:46 AM EDT) Only the most recent of2 resultswithin the time period is included. White Blood Count 8.6 4.8 - 10.8 X10*3/uL [facility] Red Blood Count 4.11(L) 4.20 - 5.50 X10*6/uL [facility] Hemoglobin 12.8 12.0 - 16.0 g/dl [facility] Hematocrit 39.7 37.0 - 47.0 % [facility] Mean Corpuscular Volume 96.6 80.0 - 98.0 fL [facility] Mean Corpuscular Hemoglobin 31.1 27.0 - 33.0 pg [facility] Mean Corpuscular HGB Conc 32.2 31.0 - 35.0 g/dl [facility] Red Cell Distribution Width 14.6 11.0 - 16.0 % [facility] Platelet Count 166 160 - 400 X10*3/uL [facility] Mean Platelet Volume 9.8 9.4 - 12.3 fL [facility] Neutrophils Percent Auto 29.0(L) 45 - 73 % [facility] Imm Gran Pct Auto 0.2 0.0 - 0.4 % [facility] Lymphocytes Percent Auto 21.5 20 - 40 % [facility] Monocytes Percent Auto 7.5 2 - 11 % [facility] Eosinophils Percent Auto 41.2(H) 0 - 4 % [facility] Basophils Percent Auto 0.6 0 - 2 % [facility] NRBC Pct Auto 0.0 0.0 - 0.2 /100WBC [facility] Neutrophils Absolute Auto 2.5 2.0 - 8.3 x10*3/uL [facility] Imm Gran Abs Auto 0.02 0.00 - 0.03 X10*3/uL [facility] Lymphocytes Absolute Auto 1.9 1.2 - 4.9 X10*3/uL [facility] Monocytes Absolute Auto 0.7 0.1 - 1.2 X10*3/uL [facility] Eosinophils Absolute Auto 3.6(H) 0.0 - 0.4 X10*3/uL [facility] Basophils Absolute Auto 0.1 0.0 - 0.2 X10*3/uL [facility] NRBC Abs Auto 0.000 0.0 - 0.012 X10*3/uL [facility] 05/17/2025 7:46 AM EDT 05/17/2025 7:50 AM EDT us Generic External Data Provider LAB BLOOD ORDERAB LES Edited Result - Final [facility] [address] [place] [phone] * Magnesium (05/17/2025 7:46 AM EDT) Magnesium 2.0 1.6 - 2.6 mg/dL [facility] 05/17/2025 7:46 AM EDT 05/17/2025 7:50 AM EDT us Generic External Data Provider LAB BLOOD ORDERAB LES Final Result Performing Organization Address City/[facility]/ZIP Co de Phone Number [facility] [address] [place] [phone] * Lipase (05/17/2025 7:46 AM EDT) Lipase 43 8 - 78 U/L [facility] 05/17/2025 7:46 AM EDT 05/17/2025 7:50 AM EDT us Generic External Data Provider LAB BLOOD ORDERAB LES Final Result Performing Organization Address [facility] Co de Phone Number [facility] [address] [place] [phone] * Hepatic Function Panel (05/17/2025 7:46 AM EDT) Bilirubin, Total 0.4 0.0 - 1.0 mg/dL [facility] Bilirubin, Direct 0.1 0.0 - 0.5 mg/dL [facility] Aspartate Amino Transferase 28 5 - 31 U/L [facility] Alanine Aminotransferase 29 0 - 31 U/L [facility] Total Protein 7.1 6.5 - 8.0 g/dL [facility] Albumin Level 3.8 3.5 - 5.0 g/dL [facility] Alkaline Phosphatase 80 39 - 117 U/L [facility] 05/17/2025 7:46 AM EDT 05/17/2025 7:50 AM EDT us Generic External Data Provider LAB BLOOD ORDERAB LES Final Result Performing Organization Address City/[facility]/ZIP Co de Phone Number [facility] [address] [place] [phone] * Basic Metabolic Panel (05/17/2025 7:46 AM EDT) Sodium 142 135 - 145 mmol/L [facility] Potassium 4.6 3.3 - 5.1 mmol/L [facility] Chloride 107 96 - 108 mmol/L [facility] Carbon Dioxide 28 22 - 29 mmol/L [facility] Anion Gap 12 12 - 20 [facility] Urea Nitrogen (BUN) 15 9 - 16 mg/dL [facility] Creatinine, Serum 0.75 0.5 - 1.4 mg/dL [facility] Creatinine Clr Calc Pharmacy 77.1 [facility] Comment:Provided height and weight: 165.1 cm,65.771 kg.eGFR (calculated from the MDRD study equation) and eCrCl(calculated from the Cockcroft-Gault equation) are based ondifferent parameters and may not yield comparable results.If eCrCl result is absurd, please check patient'sheight/weight. Estimated Glomerular Filt Rate >60 [facility] Comment:Chronic Kidney Disea se: Estimated GFR < 60 mL/min/[id number] Kidney Disease: Estimated GFR < 15 mL/min/1.73m2 Glucose 86 60 - 115 mg/dL [facility] Calcium 9.2 8.4 - 10.2 mg/dL [facility] 05/17/2025 7:46 AM EDT 05/17/2025 7:50 AM EDT us Generic External Data Provider LAB BLOOD ORDERAB LES Final Result [facility] [address] [place] [phone] * FL Esophagus Barium Swallow w/Air (04/18/2025 9:40 AM EDT) Anatomical Region Laterality Modality Head, Neck Radiographic Rachel ging 04/18/2025 9:40 AM EDT Narrative 04/18/2025 11:37 AM EDT [address] [address] Fluoroscopy Report Signed Patient: Karen Og MR#: [id number] 4 : 1970 Acct:[id number] Age/Sex: 54 / F ADM Date: 04/18/25 Loc: HO.XRAY Attending Dr: Tammi Sorenson MD Ordering Physician: Tammi Burgess MD Date of Service: 04/18/25 Procedure(s): FL barium swallow with air Accession Number(s): [id number] cc: Tammi Burgess MD Reason for Exam: [...] 04/18/25 1134 DD/ 0940 TD/TT: 04/18/25 0949 Purifying Plant Operator: Procedure Note Donotuseinterpreter, Image - 04/18/[address] [address] Fluoroscopy Report Signed Patient: Karen Og MMR#: [id number] 4 : 1970Acct:[id number] Age/Sex: 54 / FADM Date: 04/18/25 Loc: HOSHIREEN Attending Dr: Tammi Sorenson MD Ordering Physician: Tammi Burgess MD Date of Service: 04/18/25 Procedure(s): FL barium swallow with air Accession Number(s): [id number] cc: Tammi Burgess MD Reason for Exam: [...] 04/18/25 1134 DD/ 0940 TD/TT: 04/18/25 0949 Purifying Plant Operator: Tammi Sorenson MD IMG FLUOROSCOPY P ROCEDURES Final Result * Leukocytes Stool Qualitative (04/13/2025 10:00 AM EDT) Pathologist [facility] Leukocytes Stool Qualitative NEGATIVE NEGATIVE [facility] Stool 04/13/2025 10:0 0 AM EDT 04/13/2025 4:48 PM EDT Shravan Dunne MD LAB BODY FLUIDS AND STOOLS ORDER JEROMY Final Result [facility] [address] [place] [phone] * Stool - Gastrointestinal panel (04/13/2025 10:00 AM EDT) Pathologist [facility] Campylobacter Not Detected Not Detect. [facility] Plesiomonas shigelloides Not Detected Not Detect. [facility] Salmonella Not Detected Not Detect. [facility] Vibrio Not Detected Not Detect. [facility] Vibrio cholerae Not Detected Not Detect. [facility] YERSINIA ENTEROCOLITICA Not Detected Not Detect. [facility] Enteroaggregative E. coli (EAEC) Not Detected Not Detect. [facility] Enteropathogenic E. coli (EPEC) Not Detected Not Detect. [facility] Enterotoxigenic E. coli (ETEC) lt/st Not Detected Not Detect. [facility] Shiga-like toxin-producing E. coli (STEC) stx1/stx2 Not Detected Not Detect. [facility] E coli O157 Not applicable Not Detect. [facility] Comment:E. coli containing t he O157 antigen are a subset ofShiga-like toxin- producing E. coli (STEC). Shigella/Enteroinvasive E. coli (EIEC) Not Detected Not Detect. [facility] Cryptosporidium Not Detected Not Detect. [facility] Cyclospora cayetanensis Not Detected Not Detect. [facility] Entamoeba histolytica Not Detected Not Detect. [facility] Giardia lamblia Not Detected Not Detect. [facility] Adenovirus F 40/41 Not Detected Not Detect. [facility] Astrovirus Not Detected Not Detect. [facility] Norovirus GI/GII Not Detected Not Detect. [facility] Rotavirus A Not Detected Not Detect. [facility] Sapovirus Not Detected Not Detect. [facility] Comment: All results must be correlated [...] assay is performed by Multiplexed PCR, utilizing [employer] Array. Stool Rectal contents / Unknown 04/13/2025 10:00 AM EDT 04/13/2025 4:48 PM EDT us Shravan Dunne MD LAB MICROBIOLOGY - GENERAL ORDER JEROMY Final Result Performing Organization Address [facility] Co de Phone Number [facility] [address] [place] [phone] * Helicobacter pylori??Antigen, EIA, Stool (04/13/2025 10:00 AM EDT) H pylori Ag Stool SEE NOTE [facility] Comment:HELICOBACTER PYLORI AG, EIA, STOOL Micro Number: [id number] Test Status: Final Specimen Source: Stool Specimen Quality: Adequate H.pylori Ag: Not Detected Antimicrobials, proton pump inhibitors, and bismuth preparations inhibit H. pylori and ingestion up to two weeks prior to testing may cause false negative results. If clinically indicated the test should be repeated on a new specimen obtained two weeks after discontinuing treatment. Reference Range: Not DetectedTHIS TEST WAS PERFORMED AT:[facility] [place] [phone] BLANCAS MD Stool Rectal contents / Unknown 04/13/2025 10:00 AM EDT 04/13/2025 4:48 PM EDT Shravan Dunne MD LAB BODY FLUIDS AND STOOLS ORDER JEROMY Final Result Performing Organization Address [facility] Co de Phone Number [facility] [address] [place] [phone] * (ABNORMAL) Comprehensive Metabolic Panel (04/12/2025 10:09 AM EDT) Sodium 141 135 - 145 mmol/L [facility] Potassium 4.5 3.3 - 5.1 mmol/L [facility] Chloride 104 96 - 108 mmol/L [facility] Carbon Dioxide 30(H) 22 - 29 mmol/L [facility] Anion Gap 12 12 - 20 [facility] Urea Nitrogen (BUN) 15 9 - 16 mg/dL [facility] Creatinine, Serum 0.69 0.5 - 1.4 mg/dL [facility] Estimated Glomerular Filt Rate >60 [facility] Comment:Chronic Kidney Disea se: Estimated GFR < 60 mL/min/1.93s5Uubktf Kidney Disease: Estimated GFR < 15 mL/min/1.73m2 Glucose 93 60 - 115 mg/dL [facility] Calcium 9.2 8.4 - 10.2 mg/dL [facility] Bilirubin, Total 0.3 0.0 - 1.0 mg/dL [facility] Aspartate Amino Transferase 23 5 - 31 U/L [facility] Alanine Aminotransferase 11 0 - 31 U/L [facility] Total Protein 6.9 6.5 - 8.0 g/dL [facility] Albumin Level 3.8 3.5 - 5.0 g/dL [facility] Alkaline Phosphatase 66 39 - 117 U/L [facility] Blood Venous blood specimen / Unknown 04/12/2025 10:09 AM EDT 04/12/2025 11:14 AM EDT us Shravan Dunne MD LAB BLOOD ORDERABLES Final Resul t [facility] [address] [place] [phone] * US Pelvis Transvaginal (02/27/2025 4:30 PM EDT) Anatomical Region Laterality Modality Pelvis Ultrasound 02/27/2025 4:30 PM EDT Narrative 02/27/2025 5:46 PM EDT [address] [address] Ultrasound Report Signed Patient: Karen Og MR#: [id number] [birth year] : 1970 Acct:[id number] Age/Sex: 54 / F ADM Date: 02/27/25 Loc: HO.US Attending Dr: Juan Espinoza MD Ordering Physician: Juan Espinoza MD Date of Service: 02/27/25 Procedure(s): US pelvic and transvaginal Accession Number(s): [id number] cc: Tammi Burgess MD; Juan Espinoza MD [...] by Cornel Guardado MD in OV> 02/27/25 9629 DD/ 1630 TD/TT: 02/27/25 1645 Purifying Plant Operator: Procedure Note Donotuseinterpreter, Image - 02/27/[address] [address] Ultrasound Report Signed Patient: Karen Og MMR#: [id number] 4 : 1970Acct:[id number] Age/Sex: 54 / FADM Date: 02/27/25 Loc: HO.US Attending Dr: Juan Espinoza MD Ordering Physician: Juan Espinoza MD Date of Service: 02/27/25 Procedure(s): US pelvic and transvaginal Accession Number(s): [id number] cc: Tammi Burgess MD; Juan Espinoza MD [...] 02/27/25 1743 DD/ 1630 TD/TT: 02/27/25 1645 Purifying Plant Operator: us [facility] External Provider IMG US PROCEDURES Final Result * BI Mammogram Screening Tomosynthesis Bilateral (02/27/2025 2:00 PM EDT) Anatomical Region Laterality Modality Breast Bilateral Mammography 02/27/2025 2:00 PM EDT Narrative 03/09/2025 8:24 AM EDT [address] [place] [address] Mammography Report Signed Patient: Karen Og MR#: [id number] 4 : 1970 Acct:[id number] Age/Sex: 54 / F ADM Date: 02/27/25 Loc: HO.MAMMO Attending Dr: Tammi Sorenson MD Ordering Physician: Tammi Burgess MD Re sults: 1Negative Date of Service: 02/27/25 Follow Up: 1 Year From [facility] ina Mammogram Procedure(s): MM tomosynthesis screening BI Accession Number(s): [id number] cc: Tammi Burgess MD EXAMINATION: MM SCREENING [...] 03/09/25 0821 DD/ 1400 TD/TT: 02/27/25 1412 Purifying Plant Operator: Procedure Note Donotuseinterpreter, Image - 03/09/2025 [facility] [address] [place] [address] Mammography Report Signed Patient: Karen Og MMR#: [id number] 4 : 1970Acct:[id number] Age/Sex: 54 / FADM Date: 02/27/25 Loc: HO.MAMMO Attending Dr: Tammi Sorenson MD Ordering Physician: Tammi Burgess sults: 1Negative Date of Service: 02/27/25Follow Up: 1 Year From Orig inal Mammogram Procedure(s): MM tomosynthesis screening BI Accession Number(s): [id number] cc: Tammi Burgess MD EXAMINATION: MM SCREENING [...] 03/09/25 0821 DD/ 1400 TD/TT: 02/27/25 1412 Purifying Plant Operator: Tammi Sorenson MD IMG BI PROCEDURES Final Result * Hepatitis C Antibody with Reflex to HCV, RNA, Quantitative, Real-Time PCR (02/06/2025 10:04 AM EDT) Hepatitis C Antibody Nonreactive Nonreactive [facility] Comment:Antibodies to HCV no t detected; does not exclude early acuteHCV infection. Blood Venous blood specimen / Unknown 02/06/2025 10:04 AM EDT 02/06/2025 11:11 AM EDT Tammi Sorenson MD LAB BLOOD ORDERAB LES Final Result [facility] [address] [place] [phone] * HIV-1/2 Antigen and Antibodies, Fourth Generation, with Reflexes (02/06/2025 10:04 AM EDT) HIV AB/AG Nonreactive Nonreactive [facility] Comment:HIV-1 p24 Ag and/or HIV-1/HIV-2 Ab not detected.A test result that is nonreactive does not exclude thepossibility of exposure to or infection with HIV-1 and/orHIV-2. Nonreactive results in this assay for individualswith prior exposure to HIV-1 and/or HIV-2 may be due toantigen and antibody levels that are below the limit ofdetection of this assay.The [employer] Alinity HIV Ag/Ab Combo assay result andsupplemental assay results should be interpreted inconjunction with the patient's clinical presentation,history and other laboratory results. If the results areinconsistent with clinical evidence, additional testing issuggested to confirm the result. Blood Venous blood specimen / Unknown 02/06/2025 10:04 AM EDT 02/06/2025 11:11 AM EDT Tammi Sorenson MD LAB BLOOD ORDERAB LES Final Result Performing Organization Address City/[facility]/ZIP Co de Phone Number [facility] [address] [place] [phone] * Hemoglobin A1c (02/06/2025 10:04 AM EDT) Hemoglobin A1c 5.5 <6.0 % [facility] Comment:Hemoglobin A1C Refer ence Range Adults: 4.8 - 6.0 % Non diabetic: < 6.0 % Goal: < 7.0 %Additional Action Suggested: > 8.0 %Note: Hemoglobin A1c results are invalid for patients with abnormal amounts of HbF. Blood transfusions may impact the HbA1c concentration in the patient sample. Estimated Average Glucose 111 mg/dL [facility] Comment:eAG = Estimated ave rage glucose which is %A1C expressed asaverage glucose, using the formula of the U1D-HtrgtadMxwlxng Glucose study (ADAG), Diabetes Care, Vol.31,#8,Feb. 2007 Blood Venous blood specimen / Unknown 02/06/2025 10:04 AM EDT 02/06/2025 11:11 AM EDT Tammi Sorenson MD LAB BLOOD ORDERAB LES Final Result Performing Organization Address [facility]/ZIP Co de Phone Number [facility] [address] [place] [phone] * Hm Colonoscopy (05/28/2022 1:55 PM EDT) Historical Provider HEALTH MAINTENANCE Final Result * HPV E6/E7 RFLX JACOB 16 18/45 (08/15/2021 1:40 PM EST) HPV 16 RNA [facility]NP [facility] HPV 18/45 RNA [facility]NP [facility] HPV E6 E7 ADD [facility] HPV mRNA E6/E7 rflx Not Detected Not Detected [facility] Comment: Methodology: Handyperson-Mediated Amplification This assay detects E6/E7 viral messenger RNA (mRNA) from 14 high-risk HPV types (16,18,31,33,35,39,45,51,52,56,58,59,66,68). The analytical performance characteristics of this assay have been determined by [employer]. The modifications have not been cleared or approved by the FDA. This assay has been validated pursuant to the CLIA regulations and is used for clinical purposes. For additional information, please refer to http://education.Piqora/faq/BSA456w6 (This link if provided for information/ educational purposes only.) THIS TEST WAS PERFORMED AT: [facility] [address] [place] [address],[place] [phone] AMY BLANCAS MD 08/15/2021 1:40 PM EST us Historical Provider HISTORICAL/NON ORDERABLE LABS Final Result [facility] [address] * THINPREP PAP (01/11/2021 11:51 AM EDT) Pathologist [facility] Clinical Information: None given [facility] COMMENT SEE COMMENT [facility] [...] along with historic and current clinical information. Restaurant Hostess : SEE COMMENT [facility] Comment: GSG, CT(ASCP) CT screening location: [address] [address] Interpretation/R esult: Negative for intraepithelial lesion or [...] Final Result [facility] [address] [place] [address], from Last 3 Months or Most Recently Relevant to Health Maintenance [place] [address] [address] [place] [address] C3 [facility]AL-[facility] MEDICA[employer] STAND ADULT DENTAL - HSN FULL (MEDICAID) Care Teams Tail Worker Relationship Specialty Start Date End Date Tammi Burgess MD [address] [place] [address] PCP - General Internal Medicine 04/13/23
--- OUTSIDE RECORDS SUMMARY | 2025-05-24 20:11 | XMS_ITS | Encounter Summary ---
Author Organization [facility] Address [address] [place] [address] 7 [place] [address] Care Team Providers Care Emergency Physician Name Role Phone Charito Lawrence Primary Care Provider Tammi Downs MD Primary Care Pro vider Encounter Details Date Type Department Care Team (Latest Contact Info) Description 07/29/2018 Abstract [facility] CONVERSIONS Dental, Provider, DDS Social History [...] Description 06/29/2025 9:30 AM EST Office Visit [facility] MEDICINE [address] [place] [address] Tammi Burgess MD [address] [place] [address] documented as of this encounter Visit Diagnoses Not on filedocumented in this encounter Care Teams Emergency Physician Relationship Specialty Start Date End Date Charito Lawrence FNP PCP - General Family Medicine 05/17/21 04/12/23 Tammi Burgess MD [address] [place], [place] [phone] PCP - General Internal Medicine 04/13/23 documented as of this encounter
--- OUTSIDE RECORDS SUMMARY | 2025-05-24 20:11 | XMS_ITS | Encounter Summary ---
Author Organization [employer] Address [address] [facility] 7t [place] [address] Care Team Providers Care Electrician Shop Name Role Phone Tammi Burgess MD Primary Care Pro vider Reason for Visit * Reason Onset Date Comments Medication Question 05/19/2025 Encounter Details Date Type Department Care Team ([facility] st Contact Info) Description 05/19/2025 Telephone [facility] 230 [place] [address] Tammi Burgess MD 230 [place], [place] [phone] Medication Question Social History Tobacco Use Types [...] EST Office Visit [facility] [address] [place] [address] Tammi Burgess MD [address] [place], [place] [phone] documented as of this encounter Visit Diagnoses Not on filedocumented in this encounter Additional Health Concerns Assessment Noted Time PHQ-9 Depression Total Score: 8 12/27/19 25 3:12 PM EDT documented as of this encounter Care Teams Electrician Shop Relationship Specialty Start Date End Date Tammi Burgess MD [address] [place] [phone] PCP - General Internal Medicine 04/13/23 documented as of this encounter
--- OUTSIDE RECORDS SUMMARY | 2025-05-24 20:11 | XMS_ITS | Encounter Summary ---
Author Organization [employer] Address [address] [facility] 7t [place] [address] Care Team Providers Care Raw Material Planner Name Role Phone Tammi Burgess MD Primary Care Pro vider Reason for Visit * Reason Comments Med Refill Encounter Details Date Type Department Care Team ([facility] st Contact Info) Description 05/23/2025 Refill [facility] 230 [place], [place] [phone] Tammi Eldridge MD 230 [place], [place] [phone] Epigastric pain Social History Tobacco Use Types [...] housing situation today? I have [employer]bert[employer] sears 12/16/[address] you [...] 9:30 AM EST Office Visit [facility] [address] [place] [address] Tammi Burgess MD [address] [place] [address] documented as of this encounter Visit Diagnoses Diagnosis Epigastric pain Abdominal pain, epigastric documented in this encounter Additional Health Concerns Assessment Noted Time PHQ-9 Depression Total Score: 8 12/27/19 25 3:12 PM EDT documented as of this encounter Care Teams Raw Material Planner Relationship Specialty Start Date End Date Tammi Burgess MD [address] [place] [phone] PCP - General Internal Medicine 04/13/23 documented as of this encounter
--- OUTSIDE RECORDS SUMMARY | 2025-05-24 20:11 | XMS_ITS | Encounter Summary ---
Author Organization [employer] Address [address] [facility] 7t [place] [address] Care Team Providers Care Auto Service Representative Name Role Phone Tammi Burgess MD Primary Care Pro vider Encounter Details Date Type Department Care Team (Latest Contact Info) Description 04/14/2025 Results Follow-Up [facility] 230 [place] [address] Shravan Dunne MD [address] [place] [address] Leukocytes Stool Qualitative, Stool - Gastrointestinal panel, [...] EST Office Visit [facility] [address] [place] [address] Tamim Burgess MD [address] [place] [address] documented as of this encounter Visit Diagnoses Not on filedocumented in this encounter Additional Health Concerns Assessment Noted Time PHQ-9 Depression Total Score: 8 12/27/19 25 3:12 PM EDT documented as of this encounter Care Teams Auto Service Representative Relationship Specialty Start Date End Date Tammi Burgess MD [address] [place] [phone] PCP - General Internal Medicine 04/13/23 documented as of this encounter
--- OUTSIDE RECORDS SUMMARY | 2025-05-24 20:11 | XMS_ITS | Encounter Summary ---
Author Organization [employer] Address [address] [facility] 7t [place] [address] Care Team Providers Care Welding Process Specialist Name Role Phone Tammi Burgess MD Primary Care Pro vider Encounter Details Date Type Department Care Team ([facility] st Contact Info) Description 07/18/2024 Orders Only [facility] MED[facility] 230 [place] [address] ProviderChata MD Social History Tobacco Use Types [...] 1:55 PM EST Pelvic US ordered by [facility]. Patient to fu results with [facility] (Dr Espinoza). documented in this encounter Plan of Treatment Upcoming Encounters Date Type Department Care Team (Late st Contact Info) Description 06/29/2025 9:30 AM EST Office Visit [facility] [address] [place] [address] Tammi Burgess MD 230 [place] [address] documented as of this encounter Procedures Procedure [...] PM EST Narrative 08/09/2024 10:56 AM EST [address] [address] Magnetic Resonance Report Signed Patient: Karen Og MR#: [id number] 4 : 1970 Acct:[id number] Age/Sex: 54 / F ADM Date: 08/07/24 Loc: HO.MRI Attending Dr: Keyon Bowles MD Ordering Physician: Keyon Bowles MD Date of Service: 08/07/24 Procedure(s): MR knee LT wo con Accession Number(s): [id number] cc: Tammi Burgess MD; Keyon Bowles MD [...] 08/09/24 1053 DD/ 1458 TD/TT: 08/07/24 1507 Diagrammer And Seamer: Procedure Note Donotuseinterpreter, Image - 08/09/[address] [address] Magnetic Resonance Report Signed Patient: Karen Og MMR#: [id number] 4 : 1970Acct:[id number] Age/Sex: 54 / FADM Date: 08/07/24 Loc: HO.MRI Attending Dr: Keyon Bowles MD Ordering Physician: Keyon Bowles MD Date of Service: 08/07/24 Procedure(s): MR knee LT wo con Accession Number(s): [id number] cc: Tammi Burgess MD; Keyon Bowles MD [...] 08/09/24 1053 DD/ 1458 TD/TT: 08/07/24 1507 Diagrammer And Seamer: us [facility] External Provider IMG MRI PROCEDURES Final Result * US Pelvis Transvaginal (08/02/2024 4:26 PM EST) Anatomical Region Laterality Modality Pelvis Ultrasound 08/02/2024 4:26 PM EST Narrative 08/02/2024 4:27 PM EST [place] [address] Ultrasound Report Signed Patient: Karen Og MR#: [id number] 4 : 1970 Acct:[id number] Age/Sex: 54 / F ADM Date: 08/01/24 Loc: .US Attending Dr: Juan Espinoza MD Ordering Physician: Juan Espinoza MD Date of Service: 08/01/24 Procedure(s): US pelvic and transvaginal Accession Number(s): [id number] cc: Tammi Burgess MD; Juan Espinoza MD [...] 08/02/24 1626 DD/ 1626 TD/TT: 08/02/24 162 Diagrammer And Seamer: Procedure Note Donotuseinterpreter, Image - 08/02/2024 [place] [address] Ultrasound Report Signed Patient: Karen Og MMR#: [id number] 4 : 1970Acct:[id number] Age/Sex: 54 / FADM Date: 08/01/24 Loc: HO.US Attending Dr: Juan Espinoza MD Ordering Physician: Juan Espinoza MD Date of Service: 08/01/24 Procedure(s): US pelvic and transvaginal Accession Number(s): [id number] cc: Tammi Burgess MD; Juan Espinoza MD [...] OV> 08/02/241625 DD/ 1626 TD/TT: 08/02/24 162 Diagrammer And Seamer: [facility] External Provider IMG US PROCEDURES Final Result * Hm Colonoscopy (05/28/2022 1:55 PM EDT) Historical Provider HEALTH MAINTENANCE Final Result documented in this encounter Visit Diagnoses Not on filedocumented in this encounter Additional Health Concerns Assessment Noted Time PHQ-9 Depression Total Score: 5 10/20/19 24 10:39 AM EDT documented as of this encounter Care Teams Welding Process Specialist Relationship Specialty Start Date End Date Tammi Burgess MD [address] [place] [address] PCP - General Internal Medicine 04/13/23 documented as of this encounter
--- OUTSIDE RECORDS SUMMARY | 2025-05-24 20:11 | XMS_ITS | Encounter Summary ---
Author Organization [employer] Address [address] [place] [address] 7 [place] [address] Care Team Providers Care Veneer Repairer Machine Name Role Phone Charito Lawrence Yue [facility] Primary Care Provider Tammi Downs MD Primary Care Pro vider Encounter Details Date Type Department Care Team (Late st Contact Info) Description 03/31/2023 Abstract [facility] [address] [place] [address] Jamey Hussein, DMD [address] [place] [address] Social History Tobacco Use Types Packs/Day Years [...] 9:30 AM EST Office Visit [facility] MED[facility] [address] [place] [address] Tammi Burgess MD 230 [place] [address] documented as of this encounter Visit Diagnoses Not on filedocumented in this encounter Care Teams Veneer Repairer Machine Relationship Specialty Start Date End Date Charito Lawrence FNP PCP - General Family Medicine 05/17/21 04/12/23 Tammi Burgess MD [address] [place] [phone] PCP - General Internal Medicine 04/13/23 documented as of this encounter
--- OUTSIDE RECORDS SUMMARY | 2025-05-24 20:11 | XMS_ITS | Clinical Summary ---
Author Organization [facility] Address [address] [place] [address] [place] [phone] Phone Care Team Providers Care Bag End Sewer Name Role Phone Popeye Vera NP Primary [...] file Medical Devices Not on file Insurance [facility] NON NSPG PCP SILVER CLARITY CONNE[employer]CARE [employer] NON NSPG PCP SILVER CLARITY CONNECTORCARE [employer] NON NSPG PCP SILVER CLARITY CONNECTORCARE [employer] NON NSPG PCP SILVER CLARITY CONNECTORCARE [employer] NON NSPG PCP SILVER CLARITY CONNECTORCARE WELL[employer] NON NSPG PCP SILVER CLARITY CONNECTORCARE [employer] NON NSPG PCP SILVER CLARITY CONNECTORCARE [employer] NON NSPG PCP SILVER CLARITY CONNECTORCARE [employer] NON NSPG PCP SILVER CLARITY CONNECTORCARE [place] [phone] Care Teams Bag End Sewer Relationship Specialty Start Date End Date Popeye Vera NP 230 [place] [address] PCP - General 12/16/18 Additional Source Comments The information contained in this document represents components of the legal health record. It is not the complete legal health record.[facility]
--- OUTSIDE RECORDS SUMMARY | 2025-05-24 20:11 | XMS_ITS | Encounter Summary ---
Author Organization [facility] Address [address] [facility] [address] [place] [phone] Phone Care Team Providers Care Mining Professionals Name Role Phone Popeye Vera CAR FILLER Primary Care Provider Encounter Details Date Type Department Care Team (Late st Contact Info) Description 12/17/2018 Ancillary Orders [facility] [address] [place] [address] [place] [address] Fab Berry DO [address] [place] [address] Palpitations Social History Tobacco Use Types Packs/Day [...] Palpitations documented in this encounter Care Teams Mining Professionals Relationship Specialty Start Date End Date Popeye Vera NP [address] [place] [address] PCP - General 12/16/18 documented as of this encounter Additional Source Comments The information contained in this document represents components of the legal health record. It is not the complete legal health record.[facility]
--- OUTSIDE RECORDS SUMMARY | 2025-05-24 20:11 | XMS_ITS | Encounter Summary ---
Author Organization [employer] Address [address] [place] [address] 7 [place] [address] Care Team Providers Care Preassembler And Inspector Name Role Phone Tammi Burgess MD Primary Care Pro vider Reason for Referral * Consultation (Routine) - Closed Specialty Diagnoses / Procedures Referred By Contac t Referred To Contact Orthopaedic Surgery Diagnoses Knee pain, unspecified chronicity, unspecified laterality Tammi Burgess MD [address] [place] [address] Phone: tel: fax: [facility] [address] [place] [address] Phone: tel: Referral ID Status Reason Start Date Expiration Date V isits Requested Visits Authorized [id number] Closed Specialty Services Required 11/24/2024 11/24/2025 6 6 Encounter Details Date Type Department Care Team (Late st Contact Info) Description 12/07/2024 Orders Only [facility] [address] [place] [address] Tammi Burgess MD [address] [place], [place] [phone] Knee pain, unspecified chronicity, unspecified laterality (Primary [...] Description 06/29/2025 9:30 AM EST Office Visit [facility] [address] [place] [address] Tammi Burgess MD [address] [place] [address] Scheduled Referrals Name Type Priority Associated Diagnoses [...] documented as of this encounter Care Teams Preassembler And Inspector Relationship Specialty Start Date End Date Tammi Burgess MD [address] [place] [phone] PCP - General Internal Medicine 04/13/23 documented as of this encounter
--- OUTSIDE RECORDS SUMMARY | 2025-05-24 20:11 | XMS_ITS | Encounter Summary ---
Author Organization [employer] Address [address] [place] [address] 7 [place] [address] Care Team Providers Care Senior Policy Analyst Name Role Phone Tammi Burgess MD Primary Care Pro vider Reason for Visit * Reason Onset Date Comments Nurse Triage 07/16/2023 Encounter Details Date Type Department Care Team ([facility] st Contact Info) Description 07/16/2023 Telephone [facility] [address] [place] [address] Tammi Burgess MD [address] [place] [address] Nurse Triage Social History Tobacco Use Types [...] 07/16/2023 4:32 PM EST Triage call with [place] [employer] Specialist [place] [id number] Pt requests for Pt to speak for Pt. Pt has acute right knee pain. Pt has been seen in [facility] 07/09/23. Pt was prescribed tylenol 500mg, brace, voltaren gel and xrays. Xrays have been done. Pt isasking what xray results are junior copywriter advised that there is evidence of osteoarthritis, [...] Description 06/29/2025 9:30 AM EST Office Visit [facility] [address] [place] [address] Tammi Burgess MD 230 [place], [place] [phone] documented as of this encounter Visit Diagnoses Not on filedocumented in this encounter Care Teams Senior Policy Analyst Relationship Specialty Start Date End Date Tammi Burgess MD [address] [place] [address] PCP - General Internal Medicine 04/13/23 documented as of this encounter
== END 2025-05-24 16:16 | disposition home or self-care (01) ==
LOC: HO.HHCLNP 16:15
PROVIDERS: Visit Provider Student in an Organized Health Care Education/Training Program
DX: D72.10 Eosinophilia, unspecified (principal)
CPT/HCPCS: 87177; 87209

== ENCOUNTER 2025-05-26 10:49 | Outpatient (AMB) | payer MEDICAID, SELFPAY ==
--- NOTE | 2025-05-26 10:50 | MHC.OFFVIS ---
Vital Signs 05/26/25 10:53 Height 5 ft 2.5 in Weight 145 lb 0.004 oz BMI 26.1 Intake Visit Reasons: Epigastric pain Intake Note: This patient presents for an assessment for epigastric pain. Pt c/o; reports burning sensation epigastric region, reports nausea and vomiting, reports diarrhea, reports the burning sensation in the epigastric region can last up to 4 hours, reports difficulty swallowing, reports she had a Barium swallow study on 04/18/25 [facility]. Window Covering Sales Consultant Required: Yes Window Covering Sales Consultant Language: Sales Associate Cashier Services: Window Covering Sales Consultant Present Accompanied by: Self / Same As Patient Allergies aspirin (ASPIRIN) Allergy (Unknown, Verified 05/26/25 11:06) SWELLING, facial swelling Medication List - Last Reconciled 05/26/25 by Edith Vásquez CNP celecoxib (Celebrex) 200 mg PO DAILY PRN clonazepam (Klonopin) 0.5 mg PO BEDTIME 30 days cyclobenzaprine 5 mg PO BEDTIME PRN dicyclomine 10 mg PO TID divalproex (Depakote) 500 mg orally 1 tab in AM and 2 tabs at bedtime; famotidine 20 mg PO BID gabapentin 300 mg PO TID lidocaine 5% patches topical lidocaine HCl 2% (Lidocaine Viscous) 1.2 mL mucous membrane BID PRN omeprazole 40 mg PO BID ondansetron HCl 4 mg PO Q8H PRN pregabalin 25 mg PO BID triamcinolone acetonide 0.1% appl topical HPI HPI Epigastric pain: Details: Patient is a 54-year-old Colombian speaking female with PMH of anxiety, fibromyalgia,migraine, epilepsy,. Referred for further evaluation of acid reflux. Pt presents with daily severe epigastric pain, not clearly related to specific foods, lasting hours and occurring multiple times per day. Sx have worsened since February; previously, episodes were brief and less intense. Associated sx include regurgitation, dysphagia (noted with liquids, occasional choking), intermittent diarrhea, and prior nausea/vomiting (now resolved, attributed to decreased oral intake). Omeprazole (recently increased) and prior liquid antacids have provided no significant relief; pt reports adherence to regimen (BID on empty stomach). Supportive measures (smaller/frequent meals, dietary adjustments) attempted, but pt fearful to eat due to pain. No significant OTC NSAID/acetaminophen use apart from sporadic Advil. No recent hospitalizations, but ER () and UC visits for abdominal pain. Dx and management for GERD with treatment as above. Prior semaglutide use (d/c?d >6 mo ago). Empiric dietary avoidance of triggers (red meat, bananas). No new neuro, cardiac, or pulm complaints. Patient denies: fever/chills, vomiting , dysphasia, unintentional wt loss, or melena/hematochezia. Social hx: -ETOH use, socail -denies recreational drug use -non-smoker - family hx as below -denies personal hx of CA -denies significant cardiopulmonary history -tolerated anesthesia in the past without difficulty. [facility] Medical History (Updated 05/26/25 @ 15:44 by Edith Vásquez CNP) Esophageal dysmotility Diarrhea Chronic gastroesophageal reflux disease Epigastric pain Epilepsy Seizure disorder Dizziness Osteoarthritis of knees, bilateral Migraine Anxiety disorder Fibromyalgia Seizure Surgical History History of cholecystectomy History of tubal ligation Family History Maternal Grandmother Diabetes Father HTN (hypertension) Mother HTN (hypertension) Social History Household Members: Spouse Household Members Other:: son Housing: House Are you a primary care partner to a significant other at home: No Do you presently have visiting nurse or other home services: No Alcohol intake: current Alcohol intake frequency: holidays/special occasions only Patient Tobacco Use Status: Never used Tobacco Current occupational status: employed 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 Sexual orientation: Straight/Heterosexual Gender identity: Female Female Reproductive History Menstrual Age of Menarche: 10 Review of Systems Const Reports as per HPI ENT Reports as per HPI Card Reports as per HPI Resp Reports as per HPI GI Reports as per HPI Reports as per HPI Physical Exam Vital Signs: BMI result Body Mass Index 26.1 Const General: healthy appearing, no acute distress and well developed Nutritional Appearance: average body habitus Orientation/consciousness: patient oriented x3 HEENT Head: Yes normal to inspection, Yes normocephalic and Yes atraumatic Face and sinus: Yes normal facial exam Eyes General: appearance normal, both eyes and all related structures Neck Neck: Yes normal visual inspection Resp Effort & Inspection: normal respiratory effort, able to speak in complete sentences, no tracheal deviation and symmetric chest movement Cardio Jugular venous distension: no JVD GI Inspection: Yes normal to inspection, No distended and Yes obesity Palpation (GI): Soft to palpation, not firm, Tenderness to palpation present (GI) in the epigastrum and No hepatosplenomegaly present Auscultation: normal bowel sounds Neuro General: patient oriented x3 Gait exam (Neuro): Normal gait present Psych Appearance: grossly normal Mental Status: mental status grossly normal Speech and movement: Normal speech and movement present Affect: normal affect Attitude: cooperative Thought process: Normal thought process present Thought content: Normal thought content present Insight: Good insight present (Psych) Judgement: Good judgement present (Psych) Results Reviewed Results Reviewed: Date of Service: 04/18/25 Procedure(s): FL barium swallow with air Accession Number(s): [id number] cc: Tammi Burgess MD~ Reason for Exam: difficult ywith swallowing EXAMINATION: XR FLUOROSCOPY BARIUM SWALLOW CLINICAL INFORMATION: Dysphagia COMPARISON: None TECHNIQUE: Fluoroscopic air contrast barium swallow examination was performed utilizing standard techniques with thin and thick barium and effervescent granules. Numerous spot images were obtained. Several fluoroscopic image hold cine sequences were also obtained. FINDINGS: BARIUM SWALLOW: Lateral cine images of the oropharynx and hypopharynx demonstrate normal swallow mechanism with normal epiglottic inversion and soft palate elevation. No laryngeal penetration, glottic or subglottic aspiration identified. No nasopharyngeal reflux present. Hypopharyngeal structures appear normal without evidence of mass or diverticulum. There was no significant cricopharyngeal achalasia. Dual and single contrast images of the esophagus demonstrate normal caliber, contour, and mucosal pattern. No evidence of stricture, mass, or ulcerations identified. Esophageal peristalsis was mildly disordered. No evidence of hiatus hernia identified. Gastroesophageal reflux was identified during the examination to the level of the aortic arch. Dual contrast and single contrast images of the stomach demonstrated normal contour and mucosal pattern without evidence of mass, ulceration, or other abnormality. Contrast freely passed into the gastric antrum and duodenal bulb without delay. Cholecystectomy clips are incidentally noted. FLUOROSCOPY TIME: 2 minutes, 17 seconds Number of Spot Images:7 Number of cines obtained: 9 DOSE AREA PRODUCT: 1885 uGy-m2 (microgray-meter squared) FL/FL barium swallow with air IMPRESSION: 1. Gastroesophageal reflux identified to the level of the aortic arch. 2. Mildly disordered esophageal peristalsis. 3. Otherwise normal barium swallow examination. Electronically signed by: Garett Perez MD 04/18/2025 11:34 AM EDT RP Operative Note Operative Note Date of Service: 05/28/22 Narrative: Procedure: Colonoscopy Indication: Screening Endoscopist: Peace Murphy MD Anesthesia Provider: Adriana Noel CRNA Anesthesia type: MAC [General Anesthesia] Instrument: Olympus [id number]-H190L Consent: Indication, risks vs benefits, and alternatives were discussed with the patient who gave written informed consent to proceed. EKG, pulse, pulse oximetry and blood pressure were monitored throughout the procedure. Please see anesthesia flowsheet. Procedure: The patient was brought to the procedure room and placed in the left lateral decubitus position. IV medications were administered by the anesthesia provider in attendance. A digital rectal exam was performed which was normal. The colonoscope was then inserted through the anus and advanced through the colon to the cecum at 75 cm. Ileocecal valve and appendiceal orifice identified. Mucosa was carefully examined under high definition white light as the instrument was slowly withdrawn in a retrograde panoramic fashion. Retroflexion was performed in rectum. The procedure was not difficult. There were no immediate obvious complications. The quality of the prep was BBPS: 3+3+3 = excellent Withdrawal time 10 minutes. Limitations: No limitations. Findings: Mucosa: Normal to cecum. Protruding lesions: 1sessile polyp of size 3 mm on IC valve. Cold snare polypectomy was performed. The polyp was completely removed and retrieved. 1 sessile polyp of size 6 mm in transverse colon. Cold snare polypectomy was performed. The polyp was completely removed but not retrieved. Medium internal hemorrhoids without stigmata of recent bleeding. Excavated lesions: Moderate diverticulosis of left sided colon. Impression: 1. Normal colon mucosa 2. Total of 2 polyps removed from cecum (retrieved) and transverse colon (not retrieved). 3. Internal hemorrhoids 4. Diverticulosis Recommendations: - Follow path results. - Repeat colonoscopy in 7-10 years. PATHOLOGY Collected: 05/28/22 Location: [facility] Received: 05/28/22 Diagnosis Cecum, polypectomy: Fragments of poorly preserved acellular material; no colonic epithelium identified. Clinical History Pre-Op Dx: Screening Post-Op Dx: Colon polyps (1 unretrieved), diverticulosis, hemorrhoids Assessment & Plan Assessment & Plan (1) Epigastric pain: Comment: 05/28/22 colonoscopy complete with excellent prep-normal mucosa to cecum, diverticulosis (left colon), Total of 2 polyps removed from cecum (retrieved) and transverse colon (not retrieved); pathology inconclusive due to sampling, Medium internal hemorrhoids. Recommendations for repeat 7-10 years Code(s): R10.13 - Epigastric pain Category: Medical Plan: Worsening sx, refractory to omeprazole 40 mg BID, persistent pain, functional limitation, minimal improvement with prior H2RA and antacid use. Dysphagia and pain suggest possible underlying ulcer or secondary pathology. Additional Testing: - H. pylori stool Ag?order for Dx of PUD/gastritis - Celiac serologies (tTG-IgA, total IgA) to r/o gluten-sensitive - Pancreatic Enzymes; will consider imaging if elevated - EGD ordered?to eval for PUD, erosive esophagitis, Wong?s, malignancy, EoE Medications: - DC omeprazole, start pantoprazole 40 mg qAM (30 min before meal) - Famotidine 20 mg BID?continue - Avoid NSAID - Monitor: sx improvement, rash, diarrhea, hematuria, anemia Lifestyle Recommendations: - Continue T/E food diary for triggers, avoid large meals, remain upright after eating - Hydration encouraged - Provided GERD dietary handout Follow-Up Plan: - Clinic f/u in 6 wks, sooner if new sx (melena, hematemesis, persistent vomiting, severe dysphagia) - Review EGD, H. pylori, celiac labs on return (2) Chronic gastroesophageal reflux disease: Code(s): K21.9 - Gastro-esophageal reflux disease without esophagitis Category: Medical Plan: As above (3) Esophageal dysmotility: Code(s): K22.4 - Dyskinesia of esophagus Category: Medical Plan: - Mild; observed on prior imaging, not currently escalating. - Plan: Monitor; address if persistent/progressive dysphagia after current workup. Plan Follow-up 6 weeks or sooner as needed Documenting clinical information in the health record Time: I spent a total of 45 minutes on the date of encounter which includes: Preparing to see the patient (reviewed previous documentation, test results and medical history) Performing a medically appropriate exam and/or evaluation Ordering medications, tests, and procedures Documenting clinical information in the health record Orders: Orders Transglutaminase IgA Today K21.9 - Gastro-esophageal reflux disease without esophagitis, R10.13 - Epigastric pain, R19.7 - Diarrhea, unspecified H pylori Ag Stool Today K21.9 - Gastro-esophageal reflux disease without esophagitis, R10.13 - Epigastric pain Calprotectin, Fecal Today K21.9 - Gastro-esophageal reflux disease without esophagitis, R10.13 - Epigastric pain, R19.7 - Diarrhea, unspecified C Reactive Protein Today K21.9 - Gastro-esophageal reflux disease without esophagitis, R10.13 - Epigastric pain, R19.7 - Diarrhea, unspecified Lipase Today R10.13 - Epigastric pain Amylase Today R10.13 - Epigastric pain Referrals GI Procedure Notification K21.9 - Gastro-esophageal reflux disease without esophagitis, R10.13 - Epigastric pain Medications: New pantoprazole Take 1 tablet daily. Best taken on an empty stomach, 30 minutes before food 40 mg PO QAM 90 tabs 1RF Discontinued lidocaine HCl 2% (Lidocaine Viscous) Discontinued Reason: Patient no longer taking 1.2 mL mucous membrane BID PRN 100 mL 0RF pain Coding Level of Care Code New Pt New Pt Level 4 (89420) Patient Type New Diagnoses Epigastric pain R10.13 Chronic gastroesophageal reflux disease K21.9 Esophageal dysmotility K22.4
[2025-05-26 10:53] VITALS: BMI 26.1
--- OUTSIDE RECORDS SUMMARY | 2025-05-26 12:19 | XMS_ITS | Encounter Summary ---
Author Organization [employer] Address [address] [facility] [address] [place] [address] Care Team Providers Care Front Services Agent Name Role Phone Tammi Burgess MD Primary Care Pro vider Reason for Visit * Reason Onset Date Comments Lab Orders 05/25/2025 Encounter Details Date Type Department Care Team (Latest Contact Info) Description 05/25/2025 Results Follow-Up [facility] [address] [place] [address] Stephani Crystal RN Ova and Parasites, Strongyloides Antibody (IgG) Social History Tobacco Use Types Packs/Day Years [...] encounter Miscellaneous Notes * Telephone Encounter - Stephani Crystal RN - 05/25/2025 9:21 AM EDT Called [facility] Main Lab, spoke with Elena Davis. The protocol for ova and parasites is to have 3 labs orders and to collect 3 stool samples ever other day. Per Sara, many providers often only order 1 sample. She confirms samples were collected/submitted by the pt 05/22/25, 05/23/25, 05/24/25 and per Elena,they are all pending but are also on backorder for processing so it may take some time. * Telephone Encounter - Stephani Crystal RN - 05/25/2025 9:18 AM EDT ----- Message from Tammi Sorenson MD sent at 05/25/2025 6:09 AM EDT ----- Please can you check w lab issue of ova and parasite test -needs to do 1 a day for 3 days 1st sample says not performed ? Thanks ----- Message ----- From: Interface, Lab Results In Sent: 05/23/2025 3:51 PM EDT To: Tammi Sorenson MD documented in this encounter Plan of Treatment Upcoming Encounters Date Type Department Care Team (Late st Contact Info) Description 06/29/2025 9:30 AM EST Office Visit [facility] [address] [place] [address] Tammi Burgess MD [address] [place] [address] documented as of this encounter Visit Diagnoses Not on filedocumented in this encounter Additional Health Concerns Assessment Noted Time PHQ-9 Depression Total Score: 8 12/27/19 25 3:12 PM EDT documented as of this encounter Care Teams Front Services Agent Relationship Specialty Start Date End Date Tammi Burgess MD [address] [place] [address] [phone] PCP - General Internal Medicine 04/13/23 documented as of this encounter
--- OUTSIDE RECORDS SUMMARY | 2025-05-26 12:19 | XMS_ITS | Data Portability ---
Author Organization [place] - [facility], Allergy Address [address] [address] Care Team Providers Care Wire Coater Name Role Phone [facility] Primary Care Provider [phone] Assessment Encounter Date Assessment Date Assessment LastModified [...] as needed for subjective changes in hearing. [email or web address] Not available 07/05/2024 11:53:16 Plan of Treatment [...] Organization Details Recorded Time Abnormal auditory perception 43758148 Active 024 Claudia pollard [facility] 11:26:51 Problem Notes None recorded. Procedures Surgical History Date Name Laterality Status Provider Name and Address Organization Details Recorded Time 07/05/20 24 Tympanometry - 45567 completed Claudia Love [facility] 07/05/2024 11:26:42 07/05/20 24 Air & Bone Audio - 45699 completed Claudia Love [facility] 07/05/2024 11:26:38 Imaging Results None recorded. Procedure Notes None recorded. Medical Equipment None Reported. Allergies Allergen ID Allergen Name Allergen Category Reaction Reaction Severity Criticality Documentation Date Start Date Code Code System Note Provider Name and Address Organization Details Recorded Time 703269 aspirin medicatio n Not available Not available Not available 07/05/2024 1191 RxNorm Martine pollard [facility] 11:36:59 Medications Name Sig Start Date [...] Details Last Updated DateTime 07/05/2024 157.48 cm 26376.86 g Martine Pearce [place] - [facility] 07/05/2024 11:36:51 Social History None recorded. Functional Status None recorded. Mental Status None recorded. Family History Nothing Reported. Medical History Condition Response GERD/Reflux Y Gynecological HistoryNo gynecological history recorded. Obstetrics History GPAL:G 0 P 0 0 0 0 Past Encounters Encounter ID Performer Location Encounter Start Date Encounter Closed Date Diagnosis/Indication Diagnosis SNOMED-CT Code Diagnosis ICD10 Code Diagnosis IMO Codes Diagnosis Note [id number] BALBIR HENDRICKSON MD [facility] [address] [address] 07/05/2024 10:26:51 07/05/2024 11:54:36 Abnormal auditory perception 42261923 H93.299 Audiologic al evaluation results: Right ear: [...] Melvin Member ID Guarantor Name 07/05/2024 1 [place] [facility] Karen Spann [id number] Karen Og 07/05/2024 1 [facility] (O) Karen Og [id number] Karen M Og Notes Date Note Type [...] remedies for hearing loss. BALBIR HENDRICKSON MD [address] [place] [address], [id number] - [facility] 07/05/2024 11:53:35 OBGyn Episode No OBEpisode recorded.
--- OUTSIDE RECORDS SUMMARY | 2025-05-26 12:19 | XMS_ITS | Encounter Summary ---
Author Organization [employer] Address [address] [facility] 7t [place] [address] Care Team Providers Care Churn Driller Name Role Phone Tammi Burgess MD Primary Care Pro vider Encounter Details Date Type Department Care Team ([facility] st Contact Info) Description 07/18/2024 Orders Only [facility] [address] [place] [address] ProviderChata MD Social History Tobacco Use Types [...] 1:55 PM EST Pelvic US ordered by FINISHING AREA OPERATOR. Patient to fu results with FINISHING AREA OPERATOR (Dr Espinoza). documented in this encounter Plan of Treatment Upcoming Encounters Date Type Department Care Team (Late st Contact Info) Description 06/29/2025 9:30 AM EST Office Visit [facility] [address] [place] [phone] Tammi Burgess MD [address] [place] [address] documented as of this encounter Procedures Procedure [...] PM EST Narrative 08/09/2024 10:56 AM EST [address] [address] Magnetic Resonance Report Signed Patient: Kaern Og MR#: [id number] 4 : 1970 Acct:[id number] Age/Sex: 54 / F ADM Date: 08/07/24 Loc: HO.MRI Attending Dr: Keyon Bowles MD Ordering Physician: Keyon Bowles MD Date of Service: 08/07/24 Procedure(s): MR knee LT wo con Accession Number(s): [id number] cc: Tammi Burgess MD; Keyon Bowles MD [...] 08/09/24 1053 DD/ 1458 TD/TT: 08/07/24 1507 [employer] Sequestration Plant Manager: Procedure Note Donotuseinterpreter, Image - 08/09/[address] [address] Magnetic Resonance Report Signed Patient: Karen Og MMR#: [id number] 4 : 1970Acct:[id number] Age/Sex: 54 / FADM Date: 08/07/24 Loc: HO.MRI Attending Dr: Keyon Bowles MD Ordering Physician: Keyon Bowles MD Date of Service: 08/07/24 Procedure(s): MR knee LT wo con Accession Number(s): [id number] cc: Tammi Burgess MD; Keyon Bowles MD [...] 08/09/24 1053 DD/ 1458 TD/TT: 08/07/24 1507 [employer] Sequestration Plant Manager: us [facility] External Provider IMG MRI PROCEDURES Final Result * US Pelvis Transvaginal (08/02/2024 4:26 PM EST) Anatomical Region Laterality Modality Pelvis Ultrasound 08/02/2024 4:26 PM EST Narrative 08/02/2024 4:27 PM EST [place] [address] Ultrasound Report Signed Patient: Karen Og MR#: [id number] 4 : 1970 Acct:[id number] Age/Sex: 54 / F ADM Date: 08/01/24 Loc: .US Attending Dr: Juan Espinoza MD Ordering Physician: Juan Espinoza MD Date of Service: 08/01/24 Procedure(s): US pelvic and transvaginal Accession Number(s): [id number] cc: Tammi Burgess MD; Juan Espinoza MD CLINICAL HISTORY: D25.9 - Leiomyoma of uterus, unspecified US pelvis transabdominal and transvaginal Comparison: US/[place]/SR - US PELVIC AND TRANSVAGINAL - 09/28/23 [...] 08/02/24 1626 DD/ 1626 TD/TT: 08/02/24 162 [employer]quest[employer] Plant Manager: Procedure Note Donotuseinterpreter, Image - 08/02/2024 [place] [address] Ultrasound Report Signed Patient: Karen Og MMR#: [id number] 4 : 1970Acct:[id number] Age/Sex: 54 / FADM Date: 08/01/24 Loc: HO.US Attending Dr: Juan Espinoza MD Ordering Physician: Juan Espinoza MD Date of Service: 08/01/24 Procedure(s): US pelvic and transvaginal Accession Number(s): [id number] cc: Tammi Burgess MD; Juan Espinoza MD CLINICAL HISTORY: D25.9 - Leiomyoma of uterus, unspecified US pelvis transabdominal and transvaginal Comparison: [place]/SR - US PELVIC AND TRANSVAGINAL - 09/28/23 [...] OV> 08/02/241625 DD/ 1626 TD/TT: 08/02/24 162 [employer] Sequestration Plant Manager: [facility] External Provider IMG US PROCEDURES Final Result * Hm Colonoscopy (05/28/2022 1:55 PM EDT) Historical Provider HEALTH MAINTENANCE Final Result documented in this encounter Visit Diagnoses Not on filedocumented in this encounter Additional Health Concerns Assessment Noted Time PHQ-9 Depression Total Score: 5 10/20/19 24 10:39 AM EDT documented as of this encounter Care Teams Churn Driller Relationship Specialty Start Date End Date Tammi Burgess MD [address] [place] [phone] PCP - General Internal Medicine 04/13/23 documented as of this encounter
--- OUTSIDE RECORDS SUMMARY | 2025-05-26 12:19 | XMS_ITS | Encounter Summary ---
Author Organization [facility] Address [address] [facility] [address] [place] [phone] Phone Care Team Providers Care Vehicle Assembler Name Role Phone oPpeye Vera YARD ASSOCIATE Primary Care Provider [phone] Encounter Details Date Type Department Care Team (Late st Contact Info) Description 12/17/2018 Ancillary Orders [facility] [address] [place] [address] [place] [address] Fab Berry DO [address] [place] [address] Palpitations Social History Tobacco Use Types Packs/Day [...] Palpitations documented in this encounter Care Teams Vehicle Assembler Relationship Specialty Start Date End Date Popeye Vera NP [address] [place] [address] PCP - General 12/16/18 documented as of this encounter Additional Source Comments The information contained in this document represents components of the legal health record. It is not the complete legal health record.[facility]
--- OUTSIDE RECORDS SUMMARY | 2025-05-26 12:19 | XMS_ITS | Clinical Summary ---
Author Organization [facility] Address [address] [place] [address] [place] [id number] Phone Care Team Providers Care Bacon Stringer Name Role Phone Popeye Vera NP Primary Care Provider [phone] Social History Tobacco Use Types Packs/Day Years [...] file Medical Devices Not on file Insurance [facility] NON NSPG PCP [employer] NON NSPG PCP [employer] NON NSPG PCP S[employer] NON NSPG PCP [employer] NON NSPG PCP [employer] [facility] Address: [address] [place] [address] [employer] NON NSPG PCP [employer] NON NSPG PCP [employer] NON NSPG PCP S[employer] NON NSPG PCP [employer] [facility] [place] [phone] Care Teams Bacon Stringer Relationship Specialty Start Date End Date Popeye Vera NP [address] [place] [address] PCP - General 12/16/18 Additional Source Comments The information contained in this document represents components of the legal health record. It is not the complete legal health record.[facility]
--- OUTSIDE RECORDS SUMMARY | 2025-05-26 12:19 | XMS_ITS | Encounter Summary ---
Author Organization [facility] Address [address] [place] [address] [address], [place] [address] Care Team Providers Care Road Train Driver Name Role Phone Charito Lawrence Primary Care Provider Tammi Downs MD Primary Care Pro vider Encounter Details Date Type Department Care Team (Latest Contact Info) Description 07/29/2018 Abstract [facility] CONVERSIONS Dental, Provider, DDS Social [...] 06/29/2025 9:30 AM EST Office Visit [facility] MEDICINE [address] [place] [address] Tammi Burgess MD [address] [place] [address] documented as of this encounter Visit Diagnoses Not on filedocumented in this encounter Care Teams Road Train Driver Relationship Specialty Start Date End Date Charito Lawrence FNP PCP - General Family Medicine 05/17/21 04/12/23 Tammi Burgess MD [address] [place], [place] [phone] PCP - General Internal Medicine 04/13/23 documented as of this encounter
--- OUTSIDE RECORDS SUMMARY | 2025-05-26 12:19 | XMS_ITS | Clinical Summary ---
Author Organization [employer] Address [address] [place] [address] 7[address] [place] [address] Care Team Providers Care Stained Glass Joiner Name Role Phone Tammi Burgess MD Primary [...] MILD PAIN 30 tablet 04/05/20 25 Active pregabalin (Lyrica) 25 MG capsule [...] day. 30 tablet 05/17/20 25 026 Active Trisha-Lanta 200-200-20 MG/5ML oral suspensionIndicat ions:Epigastric pain TAKE 30 ML BY MOUTH BEFORE BREAKFAST, BEFORE LUNCH, BEFORE SUPPER, AND AT BEDTIME 1680 mL 05/25/20 Active omeprazole (PriLOSEC) [address] capsuleIndication s:Epigastric pain TAKE 1 CAPSULE BY MOUTH TWICE DAILY, BEFORE BREAKFAST AND BEFORE SUPPER. DO NOT BREAK, CRUSH, DISSOLVE OR CHEW. 180 capsule 05/25/20 25 Active pregabalin (Lyrica) 25 MG capsule [...] 28 days. 30 g 04/17/20 25 025 omeprazole (PriLOSEC) [address] capsuleIndication s:Epigastric pain Take 1 capsule (40 mg) by mouth before breakfast and before evening meal. Do not crush or chew. 60 capsule 04/28/20 25 025 Discontinued aluminum-magnesiu m hydroxide-simethi cone (Maalox) 200-200-20 MG/5ML suspensionIndicat ions:Epigastric pain Take 30 mL by mouth before breakfast, before lunch, before evening meal, and at bedtime. 1680 mL 04/28/20 25 025 Discontinued Active Problems Problem Noted [...] smoker Eye: 02/2023 WNL at [facility] Dental: up to date Hernia of [...] Encounters Date Type Department Care Team Description 05/25/2025 Results Follow-Up [facility] [address] [place] [phone] Stephani Crystal RN Ova and Parasites, Strongyloides Antibody (IgG) 05/23/2025 Refill [facility] [address] [address] Tammi Eldridge MD Epigastric pain 05/19/2025 Telephone [facility] [address] [place] [phone] Tammi Burgess MD Medication Question 05/17/2025 Orders Only [facility] [address] [place] [phone] Tammi Burgess MD Eosinophilia, unspecified type (Primary Dx) 05/17/2025 Orders Only GENERIC EXTERNAL DATA DEPARTMENT Provider, Generic External Data 05/03/[address] [address] Tammi Burgess MD 04/28/2025 10:20 AM EDT Office Visit [facility] [address] [place] [phone] Tammi Eldridge MD Epigastric pain 04/28/2025 Travel 04/17/2025 1:40 PM EDT Office Visit [facility] [address] [address] Kristal San ANP Rash (Primary Dx) 04/17/2025 Travel 04/14/2025 Results Follow-Up [facility] [address] [address] Shravan Dunne MD Leukocytes Stool Qualitative, Stool - Gastrointestinal panel, CBC auto differential, Comprehensive Metabolic Panel 04/12/2025 Orders Only [facility] [address] [place] [phone] Shravan Dunne MD 04/11/2025 7:20 PM EDT Office Visit [facility] [address] [address] Shravan Dunne MD Epigastric pain (Primary Dx) 04/11/2025 Travel 04/04/2025 Refill [facility] [address] [place], [place] [phone] Tammi Burgess MD 03/10/[address] [address] Tammi Burgess MD Low back pain associated with a spinal disorder other than radiculopathy or spinal stenosis 03/10/[address] [address] Tammi Burgess MD Results 03/09/2025 Results Follow-Up [address] [address] Tammi Burgess MD BI Mammogram Screening Tomosynthesis Bilateral 03/02/2025 1:30 PM EDT Office Visit [address] [address] Tammi Burgess MD Hyperlipidemia, unspecified hyperlipidemia type [...] 06/29/2025 9:30 AM EST Office Visit [facility] [address] [place] [address] [phone] Tammi Burgess MD [address] [place], [place] [phone] Health Maintenance Due Date Last Done Comments [...] caries associated with failed or defective dental amish Full coverage crown needed for root canal-treated [...] PM EDT) Ova and Parasite Trichrome TNP [facility] Comment:DUPLICATE LEAT Stool Rectal contents / Unknown 05/23/2025 3:48 PM EDT 05/23/2025 3:49 PM EDT us Tammi Sorenson MD LAB MICROBIOLOGY - GENERAL ORDERABLES Final Result [facility] [address] [place] [phone] * Strongyloides Antibody (IgG) (05/18/2025 9:31 AM EDT) Strongyloides Antibody IgG NEGATIVE [facility] Comment:REFERENCE RANGE: NEG ATIVEStrongyloides stercoralis is a parasiticNematode found in tropical and subtropicalregions. Because of low larval densities infeces, stool examination is a relativelyinsensitive diagnostic test; antibody detectionoffers increased sensitivity. Patients withlatent infections who are immunosuppressed orreceiving immunosuppressive therapy are at riskof life- threatening hyperinfection. Significantcrossreactivity may be observed in otherhelminth infections.THIS TEST WAS PERFORMED AT:[facility] [id number] [facility] [place] [address]NNELBMARY JOHNSTON MD,PHD,ESTHER Blood Venous blood specimen / Unknown 05/18/2025 9:31 AM EDT 05/18/2025 11:42 AM EDT us Tammi Sorenson MD LAB BLOOD ORDERAB LES Final Result [facility] [address] [place] [address] [phone] * Slide Review (05/17/2025 7:46 AM EDT) Only the most recent of2 resultswithin the time period is included. Pathologist [facility] Slide Review VERIFIED [facility] 05/17/2025 7:46 AM EDT 05/17/2025 7:50 AM EDT us Generic External Data Provider LAB BLOOD ORDERAB LES Final Result Performing Organization Address City/[facility]/ZIP Co de Phone Number [facility] [address] [place] [phone] * (ABNORMAL) CBC auto differential (05/17/2025 7:46 AM EDT) Only the most recent of2 resultswithin the time period is included. Pathologist [facility] White Blood Count 8.6 4.8 - 10.8 X10*3/uL [facility] Red Blood Count 4.11(L) 4.20 - 5.50 X10*6/uL [facility] Hemoglobin 12.8 12.0 - 16.0 g/dl [facility] Hematocrit 39.7 37.0 - 47.0 % [facility] Mean Corpuscular Volume 96.6 80.0 - 98.0 fL [facility] Mean Corpuscular Hemoglobin 31.1 27.0 - 33.0 pg [facility] Mean Corpuscular HGB Conc 32.2 31.0 - 35.0 g/dl [facility] Red Cell Distribution Width 14.6 11.0 - 16.0 % [facility] Platelet Count 166 160 - 400 X10*3/uL [facility] Mean Platelet Volume 9.8 9.4 - 12.3 fL [facility] Neutrophils Percent Auto 29.0(L) 45 - 73 % [facility] Imm Gran Pct Auto 0.2 0.0 - 0.4 % [facility] Lymphocytes Percent Auto 21.5 20 - 40 % [facility] Monocytes Percent Auto 7.5 2 - 11 % [facility] Eosinophils Percent Auto 41.2(H) 0 - 4 % [facility] Basophils Percent Auto 0.6 0 - 2 % [facility] NRBC Pct Auto 0.0 0.0 - 0.2 /100WBC [facility] Neutrophils Absolute Auto 2.5 2.0 - 8.3 x10*3/uL [facility] Imm Gran Abs Auto 0.02 0.00 - 0.03 X10*3/uL [facility] Lymphocytes Absolute Auto 1.9 1.2 - 4.9 X10*3/uL [facility] Monocytes Absolute Auto 0.7 0.1 - 1.2 X10*3/uL [facility] Eosinophils Absolute Auto 3.6(H) 0.0 - 0.4 X10*3/uL [facility] Basophils Absolute Auto 0.1 0.0 - 0.2 X10*3/uL [facility] NRBC Abs Auto 0.000 0.0 - 0.012 X10*3/uL [facility] 05/17/2025 7:46 AM EDT 05/17/2025 7:50 AM EDT Generic External Data Provider LAB BLOOD ORDERAB LES Edited Result - Final Performing Organization Address [facility] Co de Phone Number [facility] [address] [place] [phone] * Magnesium (05/17/2025 7:46 AM EDT) Magnesium 2.0 1.6 - 2.6 mg/dL [facility] 05/17/2025 7:46 AM EDT 05/17/2025 7:50 AM EDT Generic External Data Provider LAB BLOOD ORDERAB LES Final Result Performing Organization Address [facility] Co de Phone Number [facility] [address] [place] [phone] * Lipase (05/17/2025 7:46 AM EDT) Lipase 43 8 - 78 U/L [facility] 05/17/2025 7:46 AM EDT 05/17/2025 7:50 AM EDT Generic External Data Provider LAB BLOOD ORDERAB LES Final Result Performing Organization Address [facility] Co de Phone Number [facility] [address] [place] [phone] * Hepatic Function Panel (05/17/2025 7:46 AM EDT) Bilirubin, Total 0.4 0.0 - 1.0 mg/dL [facility] Bilirubin, Direct 0.1 0.0 - 0.5 mg/dL [facility] Aspartate Amino Transferase 28 5 - 31 U/L [facility] Alanine Aminotransferase 29 0 - 31 U/L [facility] Total Protein 7.1 6.5 - 8.0 g/dL [facility] Albumin Level 3.8 3.5 - 5.0 g/dL [facility] Alkaline Phosphatase 80 39 - 117 U/L [facility] 05/17/2025 7:46 AM EDT 05/17/2025 7:50 AM EDT us Generic External Data Provider LAB BLOOD ORDERAB LES Final Result [facility] [address] [place] [phone] * Basic Metabolic Panel (05/17/2025 7:46 AM EDT) Sodium 142 135 - 145 mmol/L [facility] Potassium 4.6 3.3 - 5.1 mmol/L [facility] Chloride 107 96 - 108 mmol/L [facility] Carbon Dioxide 28 22 - 29 mmol/L [facility] Anion Gap 12 12 - 20 [facility] Urea Nitrogen (BUN) 15 9 - 16 mg/dL [facility] Creatinine, Serum 0.75 0.5 - 1.4 mg/dL [facility] Creatinine Clr Calc Pharmacy 77.1 [facility] Comment:Provided height and weight: 165.1 cm,65.771 kg.eGFR (calculated from the MDRD study equation) and eCrCl(calculated from the Cockcroft-Gault equation) are based ondifferent parameters and may not yield comparable results.If eCrCl result is absurd, please check patient'sheight/weight. Estimated Glomerular Filt Rate >60 [facility] Comment:Chronic Kidney Disea se: Estimated GFR < 60 mL/min/1.01q3Nuqqkh Kidney Disease: Estimated GFR < 15 mL/min/1.73m2 Glucose 86 60 - 115 mg/dL [facility] Calcium 9.2 8.4 - 10.2 mg/dL [facility] 05/17/2025 7:46 AM EDT 05/17/2025 7:50 AM EDT us Generic External Data Provider LAB BLOOD ORDERAB LES Final Result Performing Organization Address City/State/[facility] Co de Phone Number [facility] [address] [place] [phone] * FL Esophagus Barium Swallow w/Air (04/18/2025 9:40 AM EDT) Anatomical Region Laterality Modality Head, Neck Radiographic Rachel ging 04/18/2025 9:40 AM EDT Narrative 04/18/2025 11:37 AM EDT [address] [address] Fluoroscopy Report Signed Patient: Karen Og MR#: [id number] 4 : 1970 Acct:[id number] Age/Sex: 54 / F ADM Date: 04/18/25 Loc: JAJA Attending Dr: Tammi Sorenson MD Ordering Physician: Tammi Burgess MD Date of Service: 04/18/25 Procedure(s): FL barium swallow with air Accession Number(s): [id number] cc: Tammi Burgess MD Reason for Exam: [...] Perez MD in OV> 04/18/25 1134 DD/ TD/TT: 04/18/25 0949 Bag Machine Operator: Procedure Note Donotuseinterpreter, Image - 04/18/2025 [place] [address] Fluoroscopy Report Signed Patient: Karen Og [facility]#: [id number] 4 : 1970Acct:[id number] Age/Sex: 54 / FADM Date: 04/18/25 Loc: HO.XRAY Attending Dr: Tammi Sorenson MD Ordering Physician: Tammi Burgess MD Date of Service: 04/18/25 Procedure(s): FL barium swallow with air Accession Number(s): [id number] cc: Tammi Burgess MD Reason for Exam: [...] 04/18/25 1134 DD/ 0940 TD/TT: 04/18/25 0949 Bag Machine Operator: us Tammi Sorenson MD IMG FLUOROSCOPY P ROCEDURES Final Result * Leukocytes Stool Qualitative (04/13/2025 10:00 AM EDT) Leukocytes Stool Qualitative NEGATIVE NEGATIVE [facility] Stool 04/13/2025 10:0 0 AM EDT 04/13/2025 4:48 PM EDT us Shravan Dunne MD LAB BODY FLUIDS AND STOOLS ORDER JEROMY Final Result [facility] [address] [place] [phone] * Stool - Gastrointestinal panel (04/13/2025 10:00 AM EDT) Campylobacter Not Detected Not Detect. [facility] Plesiomonas shigelloides Not Detected Not Detect. [facility] Salmonella Not Detected Not Detect. [facility] Vibrio Not Detected Not Detect. [facility] Vibrio cholerae Not Detected Not Detect. [facility] YERSINIA ENTEROCOLITICA Not Detected Not Detect. [facility] Enteroaggregative E. coli (EAEC) Not Detected Not Detect. [facility] Enteropathogenic E. coli (EPEC) Not Detected Not Detect. [facility] Enterotoxigenic E. coli (ETEC) lt/st Not Detected Not Detect. [facility] Shiga-like toxin-producing E. coli (STEC) stx1/stx2 Not Detected Not Detect. [facility] E coli O157 Not applicable Not Detect. [facility] Comment:E. coli containing t he O157 antigen are a subset ofShiga-like toxin- producing E. coli (STEC). Shigella/Enteroinvasive E. coli (EIEC) Not Detected Not Detect. [facility] Cryptosporidium Not Detected Not Detect. [facility] Cyclospora cayetanensis Not Detected Not Detect. [facility] Entamoeba histolytica Not Detected Not Detect. [facility] Giardia lamblia Not Detected Not Detect. [facility] Adenovirus F 40/41 Not Detected Not Detect. [facility] Astrovirus Not Detected Not Detect. [facility] Norovirus GI/GII Not Detected Not Detect. [facility] Rotavirus A Not Detected Not Detect. [facility] Sapovirus Not Detected Not Detect. [facility] Comment: All results must be [...] assay is performed by Multiplexed PCR, utilizing [employer] Array. Stool Rectal contents / Unknown 04/13/2025 10:00 AM EDT 04/13/2025 4:48 PM EDT us Shravan Dunne MD LAB MICROBIOLOGY - GENERAL ORDER JEROMY Final Result [facility] [address] [place] [phone] * Helicobacter pylori??Antigen, EIA, Stool (04/13/2025 10:00 AM EDT) H pylori Ag Stool SEE NOTE [facility] Comment:HELICOBACTER PYLORI AG, EIA, STOOL Micro Number: [id number] Test Status: Final Specimen Source: Stool Specimen Quality: Adequate H.pylori Ag: Not Detected Antimicrobials, proton pump inhibitors, and bismuth preparations inhibit H. pylori and ingestion up to two weeks prior to testing may cause false negative results. If clinically indicated the test should be repeated on a new specimen obtained two weeks after discontinuing treatment. Reference Range: Not DetectedTHIS TEST WAS PERFORMED AT:[facility] [place] [phone] BLANCAS MD Stool Rectal contents / Unknown 04/13/2025 10:00 AM EDT 04/13/2025 4:48 PM EDT us Shravan Dunne MD LAB BODY FLUIDS AND STOOLS ORDER JEROMY Final Result Performing Organization Address City/[facility]/ZIP Co de Phone Number [facility] [address] [place] [phone] [phone] * (ABNORMAL) Comprehensive Metabolic Panel (04/12/2025 10:09 AM EDT) Sodium 141 135 - 145 mmol/L [facility] Potassium 4.5 3.3 - 5.1 mmol/L [facility] Chloride 104 96 - 108 mmol/L [facility] Carbon Dioxide 30(H) 22 - 29 mmol/L [facility] Anion Gap 12 12 - 20 [facility] Urea Nitrogen (BUN) 15 9 - 16 mg/dL [facility] Creatinine, Serum 0.69 0.5 - 1.4 mg/dL [facility] Estimated Glomerular Filt Rate >60 [facility] Comment:Chronic Kidney Disea se: Estimated GFR < 60 mL/min/1.93u3Oiguqo Kidney Disease: Estimated GFR < 15 mL/min/1.73m2 Glucose 93 60 - 115 mg/dL [facility] Calcium 9.2 8.4 - 10.2 mg/dL [facility] Bilirubin, Total 0.3 0.0 - 1.0 mg/dL [facility] Aspartate Amino Transferase 23 5 - 31 U/L [facility] Alanine Aminotransferase 11 0 - 31 U/L [facility] Total Protein 6.9 6.5 - 8.0 g/dL [facility] Albumin Level 3.8 3.5 - 5.0 g/dL [facility] Alkaline Phosphatase 66 39 - 117 U/L [facility] Blood Venous blood specimen / Unknown 04/12/2025 10:09 AM EDT 04/12/2025 11:14 AM EDT us Shravan Dunne MD LAB BLOOD ORDERABLES Final Resul t Performing Organization Address [facility]/ZIP Co de Phone Number [facility] [address] [place] [phone] * US Pelvis Transvaginal (02/27/2025 4:30 PM EDT) Anatomical Region Laterality Modality Pelvis Ultrasound 02/27/2025 4:30 PM EDT Narrative 02/27/2025 5:46 PM EDT [address] [address] Ultrasound Report Signed Patient: Karen Og MR#: [id number] 4 : 1970 Acct:[id number] Age/Sex: 54 / F ADM Date: 02/27/25 Loc: HO.US Attending Dr: Juan Espinoza MD Ordering Physician: Juan Espinoza MD Date of Service: 02/27/25 Procedure(s): US pelvic and transvaginal Accession Number(s): [id number] cc: Tammi Burgess MD; Juan Espinoza MD [...] 02/27/25 1743 DD/ 1630 TD/TT: 02/27/25 1645 Bag Machine Operator: Procedure Note Donotuseinterpreter, Image - 02/27/2025 [place] [address] Ultrasound Report Signed Patient: Karen Og MMR#: [id number] 4 : 1970Acct:[id number] Age/Sex: 54 / FADM Date: 02/27/25 Loc: HO.US Attending Dr: Juan Espinoza MD Ordering Physician: Juan Espinoza MD Date of Service: 02/27/25 Procedure(s): US pelvic and transvaginal Accession Number(s): [id number] cc: Tammi Burgess MD; Juan Espinoza MD [...] 02/27/25 1743 DD/ 1630 TD/TT: 02/27/25 1645 Bag Machine Operator: [facility] External Provider IMG US PROCEDURES Final Result * BI Mammogram Screening Tomosynthesis Bilateral (02/27/2025 2:00 PM EDT) Anatomical Region Laterality Modality Breast Bilateral Mammography 02/27/2025 2:00 PM EDT Narrative 03/09/2025 8:24 AM EDT [facility] [address] [place] [address] Mammography Report Signed Patient: Karen Og MR#: [id number] 4 : 1970 Acct:[id number] Age/Sex: 54 / F ADM Date: 02/27/25 Loc: HO.MAMMO Attending Dr: Tammi Sorenson MD Ordering Physician: Tammi Burgess MD Re sults: 1Negative Date of Service: 02/27/25 Follow Up: 1 Year From Orig inal Mammogram Procedure(s): MM tomosynthesis screening BI Accession Number(s): [id number] cc: Tammi Burgess MD EXAMINATION: MM SCREENING [...] 03/09/25 0821 DD/ 1400 TD/TT: 02/27/25 1412 Bag Machine Operator: Procedure Note Donotuseinterpreter, Image - 03/09/2025 [facility] [address] [place] [address] Mammography Report Signed Patient: Karen Og MMR#: [id number] 4 : 1970Acct:[id number] Age/Sex: 54 / FADM Date: 02/27/25 Loc: HO.MAMMO Attending Dr: Tammi Sorenson MD Ordering Physician: Tammi Burgesse sults: 1Negative Date of Service: 02/27/25Follow Up: 1 Year From Orig inal Mammogram Procedure(s): MM tomosynthesis screening BI Accession Number(s): [id number] cc: Tammi Burgess MD EXAMINATION: MM SCREENING [...] 03/09/25 0821 DD/ 1400 TD/TT: 02/27/25 1412 Bag Machine Operator: Tammi Sorenson MD IMG BI PROCEDURES Final Result * Hepatitis C Antibody with Reflex to HCV, RNA, Quantitative, Real-Time PCR (02/06/2025 10:04 AM EDT) Hepatitis C Antibody Nonreactive Nonreactive [facility] Comment:Antibodies to HCV no t detected; does not exclude early acuteHCV infection. Blood Venous blood specimen / Unknown 02/06/2025 10:04 AM EDT 02/06/2025 11:11 AM EDT Tammi Sorenson MD LAB BLOOD ORDERAB LES Final Result [facility] [address] [place] [address] [phone] * HIV-1/2 Antigen and Antibodies, Fourth Generation, with Reflexes (02/06/2025 10:04 AM EDT) HIV AB/AG Nonreactive Nonreactive [facility] Comment:HIV-1 p24 Ag and/or HIV-1/HIV-2 Ab not detected.A test result that is nonreactive does not exclude thepossibility of exposure to or infection with HIV-1 and/orHIV-2. Nonreactive results in this assay for individualswith prior exposure to HIV-1 and/or HIV-2 may be due toantigen and antibody levels that are below the limit ofdetection of this assay.The [employer] HIV Ag/Ab Combo assay result andsupplemental assay results should be interpreted inconjunction with the patient's clinical presentation,history and other laboratory results. If the results areinconsistent with clinical evidence, additional testing issuggested to confirm the result. Blood Venous blood specimen / Unknown 02/06/2025 10:04 AM EDT 02/06/2025 11:11 AM EDT us Tammi Sorenson MD LAB BLOOD ORDERAB LES Final Result [facility] [address] [place] [phone] * Hemoglobin A1c (02/06/2025 10:04 AM EDT) Hemoglobin A1c 5.5 <6.0 % [facility] Comment:Hemoglobin A1C Refer ence Range Adults: 4.8 - 6.0 % Non diabetic: < 6.0 % Goal: < 7.0 %Additional Action Suggested: > 8.0 %Note: Hemoglobin A1c results are invalid for patients with abnormal amounts of HbF. Blood transfusions may impact the HbA1c concentration in the patient sample. Estimated Average Glucose 111 mg/dL [facility] Comment:eAG = Estimated ave rage glucose which is %A1C expressed asaverage glucose, using the formula of the Y8I-IejaaatVepeqva Glucose study (ADAG), Diabetes Care, Vol.31,#8,2007 Blood Venous blood specimen / Unknown 02/06/2025 10:04 AM EDT 02/06/2025 11:11 AM EDT Tammi Sorenson MD LAB BLOOD ORDERAB LES Final Result [facility] [address] [place] [phone] * Hm Colonoscopy (05/28/2022 1:55 PM EDT) Historical Provider HEALTH MAINTENANCE Final Result * HPV E6/E7 RFLX JACOB 16 18/45 (08/15/2021 1:40 PM EST) Pathologist [facility] HPV 16 RNA TNP [facility] HPV 18/45 RNA TNP [facility] HPV E6 E7 ADD TNP [facility] HPV mRNA E6/E7 rflx Not Detected Not Detected [facility] Comment: Methodology: Machine Sewer-Mediated Amplification This assay detects E6/E7 viral messenger RNA (mRNA) from 14 high-risk HPV types (16,18,31,33,35,39,45,51,52,56,58,59,66,68). The analytical performance characteristics of this assay have been determined by [facility]. The modifications have not been cleared or approved by the FDA. This assay has been validated pursuant to the CLIA regulations and is used for clinical purposes. For additional information, please refer to http://education.MyPronostic.ideaForge/faq/NJT568q1 (This link if provided for information/ educational purposes only.) THIS TEST WAS PERFORMED AT: [facility] [address] [place] [address] [address] [address] AMY BLANCAS MD 08/15/2021 1:40 PM EST Historical Provider HISTORICAL/NON ORDERABLE LABS Final Result Performing Organization Address City/[facility]/ZIP Co de Phone Number [facility] [address] * THINPREP PAP (01/11/2021 11:51 AM [...] along with historic and current clinical information. Mobile Equipment Mechanic : SEE COMMENT [facility] Comment: GSG, CT(ASCP) CT screening location: [place] [address] Interpretation/R esult: Negative for intraepithelial lesion or malignancy. [facility] LMP: NONE GIVEN [facility] Prev. BX: NONE GIVEN [facility] Prev. PAP: NONE GIVEN [facility] SOURCE: None given [facility] Statement Of Adequacy: SEE COMMENT [facility] Comment: Satisfactory for evaluation. Endocervical/transformation zone component present. 01/11/2021 11:5 1 AM EDT us Historical Provider MD LAB PATHOLOGY ORDERABLES Final Result Performing Organization Address City/State/[facility] Co de Phone Number [facility] [address] from Last 3 Months or Most Recently Relevant to Health Maintenance Insurance [facility] [place] ST[place] AD[place] DENTAL - HSN FULL (MEDICAID) Care Teams Stained Glass Joiner Relationship Specialty Start Date End Date Tammi Burgess MD [address] [place] [address] PCP - General Internal Medicine 04/13/23
--- OUTSIDE RECORDS SUMMARY | 2025-05-26 12:19 | XMS_ITS | Encounter Summary ---
Author Organization [employer] Address 75 [facility] 7t [place] [address] Care Team Providers Care Metallurgist Helper Name Role Phone Tammi Burgess MD Primary Care Pro vider Reason for Visit * Reason Comments Med Refill Encounter Details Date Type Department Care Team (Late st Contact Info) Description 08/11/2024 Refill [facility] MEDICINE 230 [place] [address] Tammi Burgess MD 230 [place], [place] [phone] Social History Tobacco Use Types Packs/Day Years [...] AM EST Office Visit [facility] MEDICINE [address] [place] [address] Tammi Burgess MD [address] [place] [address] documented as of this encounter Visit Diagnoses Not on filedocumented in this encounter Additional Health Concerns Assessment Noted Time PHQ-9 Depression Total Score: 5 10/20/19 24 10:39 AM EDT documented as of this encounter Care Teams Metallurgist Helper Relationship Specialty Start Date End Date Tammi Burgess MD [address] [place] [address] PCP - General Internal Medicine 04/13/23 documented as of this encounter
--- OUTSIDE RECORDS SUMMARY | 2025-05-26 12:19 | XMS_ITS | Encounter Summary ---
Author Organization [employer] Address [address] [place] [address] 7 [place] [address] Care Team Providers Care Daub Color Mixer Name Role Phone Charito Lawrence Yue [facility] Primary Care Provider Tammi Downs MD Primary Care Pro vider Encounter Details Date Type Department Care Team (Late st Contact Info) Description 03/31/2023 Abstract [facility] [address] [place] [address] Jamey Hussein, DMD [address] [place] [address] Social History Tobacco Use Types Packs/Day Years [...] 06/29/2025 9:30 AM EST Office Visit [facility] [address] [place] [address] Tammi Burgess MD 230 [place] [address] documented as of this encounter Visit Diagnoses Not on filedocumented in this encounter Care Teams Daub Color Mixer Relationship Specialty Start Date End Date Charito Lawrence FNP PCP - General Family Medicine 05/17/21 04/12/23 Tammi Burgess MD [address] [place] [address] PCP - General Internal Medicine 04/13/23 documented as of this encounter
--- OUTSIDE RECORDS SUMMARY | 2025-05-26 12:20 | XMS_ITS | Encounter Summary ---
Author Organization [employer] Address [address] [place] [address] 7 [place] [address] Care Team Providers Care Sales Product Specialist Name Role Phone Tammi Burgess MD Primary Care Pro vider Reason for Referral * Consultation (Routine) - Closed Specialty Diagnoses / Procedures Referred By Contac t Referred To Contact Orthopaedic Surgery Diagnoses Knee pain, unspecified chronicity, unspecified laterality Tammi Burgess MD 230 [place] [address] Phone: tel: fax: [facility] [address] [place] [address] Phone: tel: Referral ID Status Reason Start Date Expiration Date V isits Requested Visits Authorized [id number] Closed Specialty Services Required 11/24/2024 11/24/2025 6 6 Encounter Details Date Type Department Care Team (Late st Contact Info) Description 12/07/2024 Orders Only [facility] MEDICINE [address] [place] [address] Tammi Burgess MD [address] [place], [place] [phone] Knee pain, unspecified chronicity, unspecified laterality (Primary [...] AM EST Office Visit [facility] MEDICINE [address] [place] [address] Tammi Burgess MD [address] [place] [address] Scheduled Referrals Name Type Priority Associated Diagnoses [...] documented as of this encounter Care Teams Sales Product Specialist Relationship Specialty Start Date End Date Tammi Burgess MD [address] [place] [address] PCP - General Internal Medicine 04/13/23 documented as of this encounter
--- OUTSIDE RECORDS SUMMARY | 2025-05-26 12:20 | XMS_ITS | Encounter Summary ---
Author Organization [employer] Address [address] [place] [address] 7 [place] [address] Care Team Providers Care Coal Passer Name Role Phone Tammi Burgess MD Primary Care Pro vider Reason for Visit * Reason Onset Date Comments Nurse Triage 07/16/2023 Encounter Details Date Type Department Care Team ([facility] st Contact Info) Description 07/16/2023 Telephone [facility] MEDICINE 230 [place] [address] Tammi Burgess MD 230 [place] [address] Nurse Triage Social History Tobacco Use Types [...] 07/16/2023 4:32 PM EST Triage call with [place] Helper [place] [id number] Pt requests for Pt to speak for Pt. Pt has acute right knee pain. Pt has been seen in [facility] 07/09/23. Pt was prescribed tylenol 500mg, brace, voltaren gel and xrays. Xrays have been done. Pt isasking what xray results are consumer loan underwriter advised that there is evidence of [...] Description 06/29/2025 9:30 AM EST Office Visit [facility] MEDICINE [address] [place] [address] Tammi Burgess MD 230 [place], [place] [phone] documented as of this encounter Visit Diagnoses Not on filedocumented in this encounter Care Teams Coal Passer Relationship Specialty Start Date End Date Tammi Burgess MD [address] [place] [address] PCP - General Internal Medicine 04/13/23 documented as of this encounter
--- OUTSIDE RECORDS SUMMARY | 2025-05-26 12:20 | XMS_ITS | Encounter Summary ---
Author Organization [employer] Address 75 [facility] 7t [place] [address] Care Team Providers Care Civil Structural Designer Name Role Phone Tammi Burgess MD Primary Care Pro vider Encounter Details Date Type Department Care Team (Late st Contact Info) Description 08/06/2023 Orders Only [facility] MEDICINE 230 [place], [place] [phone] Judy Prieto MD 230 [place], [place] [phone] Acute pain of right knee (Primary Dx); [...] Office Visit [facility] MEDICINE [address] [place] [address] Tammi Burgess MD 230 [place] [address] documented as of this encounter Visit Diagnoses Diagnosis Acute pain of right knee- Primary Effusion of right knee Dislocation of right knee with medial meniscus tear, initial encounter documented in this encounter Additional Health Concerns Assessment Noted Time PHQ-9 Depression Total Score: 0 07/23/20 11:15 AM EST documented as of this encounter Care Teams Civil Structural Designer Relationship Specialty Start Date End Date Tammi Burgess MD [address] [place] [address] PCP - General Internal Medicine 04/13/23 documented as of this encounter
--- OUTSIDE RECORDS SUMMARY | 2025-05-26 12:20 | XMS_ITS | Encounter Summary ---
Author Organization [employer] Address 75 [facility] 7t [place] [address] Care Team Providers Care Duplicating Machine Operator Name Role Phone Tammi Burgess MD Primary Care Pro vider Reason for Visit * Reason Comments Med Refill Encounter Details Date Type Department Care Team ([facility] st Contact Info) Description 05/23/2025 Refill [facility] 230 [place], [place] [phone] Tammi Eldridge MD 230 [place], [place] [phone] Epigastric pain Social History Tobacco Use Types [...] 06/29/2025 9:30 AM EST Office Visit [facility] MEDICINE [address] [place] [address] Tammi Burgess MD [address] [place] [address] documented as of this encounter Visit Diagnoses Diagnosis Epigastric pain Abdominal pain, epigastric documented in this encounter Additional Health Concerns Assessment Noted Time PHQ-9 Depression Total Score: 8 12/27/19 25 3:12 PM EDT documented as of this encounter Care Teams Duplicating Machine Operator Relationship Specialty Start Date End Date Tammi Burgess MD [address] [place] [address] PCP - General Internal Medicine 04/13/23 documented as of this encounter
--- OUTSIDE RECORDS SUMMARY | 2025-05-26 12:20 | XMS_ITS | Encounter Summary ---
Author Organization [employer] Address 75 [facility] 7t [place] [address] Care Team Providers Care Tire Trimmer Hand Name Role Phone Tammi Burgess MD Primary Care Pro vider Encounter Details Date Type Department Care Team (Latest Contact Info) Description 04/14/2025 Results [facility] 230 [place] [address] Shravan Dunne MD 230 [place] [address] Leukocytes Stool Qualitative, Stool - Gastrointestinal panel, [...] 06/29/2025 9:30 AM EST Office Visit [facility] MEDICINE [address] [place] [address] Tammi Burgess MD [address] [place] [address] documented as of this encounter Visit Diagnoses Not on filedocumented in this encounter Additional Health Concerns Assessment Noted Time PHQ-9 Depression Total Score: 8 12/27/19 25 3:12 PM EDT documented as of this encounter Care Teams Tire Trimmer Hand Relationship Specialty Start Date End Date Tammi Burgess MD [address] [place] [address] PCP - General Internal Medicine 04/13/23 documented as of this encounter
== END 2025-05-26 11:45 | disposition home or self-care (01) ==
PROVIDERS: PCP Student in an Organized Health Care Education/Training Program; Visit Provider Nurse Practitioner Family
DX: R10.13 Epigastric pain (principal); K21.9 Gastro-esophageal reflux disease without esophagitis; K22.4 Dyskinesia of esophagus
CPT/HCPCS: 99204

== ENCOUNTER → 2025-05-26 10:49 | Outpatient (BNVA) | payer MEDICAID, SELFPAY | PROVIDERS: PCP Student in an Organized Health Care Education/Training Program; Visit Provider Nurse Practitioner Family | DX: R10.13 Epigastric pain (principal); K21.9 Gastro-esophageal reflux disease without esophagitis; K22.4 Dyskinesia of esophagus; R19.7 Diarrhea, unspecified | CPT/HCPCS: 99212 ==

== ENCOUNTER 2025-05-27 09:16 | Outpatient (REF) | payer MEDICAID, SELFPAY ==
--- OUTSIDE RECORDS SUMMARY | 2025-05-27 09:18 | XMS_ITS | Encounter Summary ---
Author Organization [employer] Address 75 [facility] 7t [place] [address] Care Team Providers Care Piped Pocket Machine Operator Name Role Phone Tammi Burgess MD Primary Care Pro vider Reason for Visit * Reason Comments Med Refill Encounter Details Date Type Department Care Team (Late st Contact Info) Description 08/11/2024 Refill [facility] MEDICINE 230 [place] [address] Tammi Burgess MD 230 [place], [place] [phone] Social History Tobacco Use Types Packs/Day Years [...] Description 06/29/2025 9:30 AM EST Office Visit [facility] MEDICINE [address] [place] [address] Tammi Burgess MD [address] [place] [address] documented as of this encounter Visit Diagnoses Not on filedocumented in this encounter Additional Health Concerns Assessment Noted Time PHQ-9 Depression Total Score: 5 10/20/19 24 10:39 AM EDT documented as of this encounter Care Teams Piped Pocket Machine Operator Relationship Specialty Start Date End Date Tammi Burgess MD [address] [place] [address] PCP - General Internal Medicine 04/13/23 documented as of this encounter
--- OUTSIDE RECORDS SUMMARY | 2025-05-27 09:19 | XMS_ITS | Encounter Summary ---
Author Organization [employer] Address 75 [facility] 7t [place] [address] Care Team Providers Care Continuous Improvement Intern Name Role Phone Tammi Burgess MD Primary Care Pro vider Encounter Details Date Type Department Care Team (Late st Contact Info) Description 08/06/2023 Orders Only [facility] MEDICINE 230 [place], [place] [phone] Judy Prieto MD 230 [place], [place] [phone] Acute pain of right knee (Primary Dx); [...] Description 06/29/2025 9:30 AM EST Office Visit [facility] MEDICINE [address] [place] [address] Tammi Burgess MD 230 [place] [address] documented as of this encounter Visit Diagnoses Diagnosis Acute pain of right knee- Primary Effusion of right knee Dislocation of right knee with medial meniscus tear, initial encounter documented in this encounter Additional Health Concerns Assessment Noted Time PHQ-9 Depression Total Score: 0 07/23/20 11:15 AM EST documented as of this encounter Care Teams Continuous Improvement Intern Relationship Specialty Start Date End Date Tammi Burgess MD [address] [place] [address] PCP - General Internal Medicine 04/13/23 documented as of this encounter
--- OUTSIDE RECORDS SUMMARY | 2025-05-27 09:19 | XMS_ITS | Encounter Summary ---
Author Organization [employer] Address [address] [place] [address] 7 [place] [address] Care Team Providers Care Jet Ski Mechanic Name Role Phone Tammi Burgess MD Primary Care Pro vider Reason for Visit * Reason Onset Date Comments Nurse Triage 07/16/2023 Encounter Details Date Type Department Care Team ([facility] st Contact Info) Description 07/16/2023 Telephone [facility] MEDICINE 230 [place] [address] Tammi Burgess MD 230 [place] [address] Nurse Triage Social History Tobacco Use Types [...] Miscellaneous Notes * Telephone Encounter - Ariela aWlker MD - 07/21/2023 9:29 PM EST Xray reviewed. Xray shows arthritis and large effusion.Pt is a good candidate for knee injection * Telephone Encounter - Leyla Vickers RN - 07/16/2023 4:32 PM EST Triage call with Grav[place] Winder Fixer [place] [id number] Pt requests for Pt to speak for Pt. Pt has acute right knee pain. Pt has been seen in [facility] 07/09/23. Pt was prescribed tylenol 500mg, brace, voltaren gel and xrays. Xrays have been done. Pt isasking what xray results are communications writer advised that there is evidence of [...] Description 06/29/2025 9:30 AM EST Office Visit [facility] MEDIC[facility] 230 [place] [address] Tammi Burgess MD 230 [place], [place] [phone] documented as of this encounter Visit Diagnoses Not on filedocumented in this encounter Care Teams Jet Ski Mechanic Relationship Specialty Start Date End Date Tammi Burgess MD [address] [place] [address] PCP - General Internal Medicine 04/13/23 documented as of this encounter
--- OUTSIDE RECORDS SUMMARY | 2025-05-27 09:19 | XMS_ITS | Encounter Summary ---
Author Organization [facility] Address [address] [facility] [address] [place] [address] Phone Care Team Providers Care Electrician Shop Name Role Phone Popeye Vera NP Primary Care Provider [phone] Encounter Details Date Type Department Care Team (Late st Contact Info) Description 12/17/2018 Ancillary Orders [facility] [address] [place] [address] [place] [address] Fab Berry DO [address] [place] [address] Palpitations Social History Tobacco Use Types Packs/Day [...] Palpitations documented in this encounter Care Teams Electrician Shop Relationship Specialty Start Date End Date Popeye Vera NP 230 [place] [address] PCP - General 12/16/18 documented as of this encounter Additional Source Comments The information contained in this document represents components of the legal health record. It is not the complete legal health record.[facility]
--- OUTSIDE RECORDS SUMMARY | 2025-05-27 09:19 | XMS_ITS | Encounter Summary ---
Author Organization [employer] Address 75 [facility] 7t [place] [address] Care Team Providers Care Gas Compressor Operator Name Role Phone Tammi Burgess MD Primary Care Pro vider Reason for Visit * Reason Onset Date Comments Lab Orders 05/25/2025 Encounter Details Date Type Department Care Team (Latest Contact Info) Description 05/25/2025 Results Follow-Up [facility] MEDICINE 230 [place] [address] Stephani Crystal RN Ova and Parasites, Strongyloides [...] RN - 05/25/2025 9:21 AM EDT Called [facility], spoke with [...] Description 06/29/2025 9:30 AM EST Office Visit [facility] MEDICINE 230 [place] [address] Tammi Burgess MD 230 [place] [address] documented as of this encounter Visit Diagnoses Not on filedocumented in this encounter Additional Health Concerns Assessment Noted Time PHQ-9 Depression Total Score: 8 12/27/19 25 3:12 PM EDT documented as of this encounter Care Teams Gas Compressor Operator Relationship Specialty Start Date End Date Tammi Burgess MD [address] [place] [address] [phone] PCP - General Internal Medicine 04/13/23 documented as of this encounter
--- OUTSIDE RECORDS SUMMARY | 2025-05-27 09:19 | XMS_ITS | Encounter Summary ---
Author Organization [employer] Address [address] [place] [address] 7 [place] [address] Care Team Providers Care Top Collar Maker Name Role Phone Charito Lawrence Yue [facility] Primary Care Provider Tammi Downs MD Primary Care Pro vider Encounter Details Date Type Department Care Team (Late st Contact Info) Description 03/31/2023 Abstract [facility]ULT D[facility] 230 [place] [address] Jamey Hussein, DMD 505 [place] [address] Social History Tobacco Use Types Packs/Day Years [...] Description 06/29/2025 9:30 AM EST Office Visit [facility] MEDICINE 230 [place] [address] Tammi Burgess MD 230 [place] [address] documented as of this encounter Visit Diagnoses Not on filedocumented in this encounter Care Teams Top Collar Maker Relationship Specialty Start Date End Date Charito Lawrence FNP PCP - General Family Medicine 05/17/21 04/12/23 Tammi Burgess MD [address] [place] [address] PCP - General Internal Medicine 04/13/23 documented as of this encounter
--- OUTSIDE RECORDS SUMMARY | 2025-05-27 09:19 | XMS_ITS | Encounter Summary ---
Author Organization [employer] Address 75 [facility] 7t [place] [address] Care Team Providers Care Waste Cotton Cleaner Name Role Phone Tammi Burgess MD Primary Care Pro vider Reason for Visit * Reason Comments Med Refill Encounter Details Date Type Department Care Team ([facility] st Contact Info) Description 05/23/2025 Refill [facility] 230 [place], [place] [phone] Tammi Eldridge MD 230 [place], [place] [phone] Epigastric pain Social History Tobacco Use Types [...] Description 06/29/2025 9:30 AM EST Office Visit [facility] MEDICINE [address] [place] [address] Tammi Burgess MD [address] [place] [address] documented as of this encounter Visit Diagnoses Diagnosis Epigastric pain Abdominal pain, epigastric documented in this encounter Additional Health Concerns Assessment Noted Time PHQ-9 Depression Total Score: 8 12/27/19 25 3:12 PM EDT documented as of this encounter Care Teams Waste Cotton Cleaner Relationship Specialty Start Date End Date Tammi Burgess MD [address] [place] [address] PCP - General Internal Medicine 04/13/23 documented as of this encounter
--- OUTSIDE RECORDS SUMMARY | 2025-05-27 09:19 | XMS_ITS | Encounter Summary ---
Author Organization [employer] Address 75 [facility] 7t [place] [address] Care Team Providers Care Keg Varnisher Name Role Phone Tammi Burgess MD Primary Care Pro vider Encounter Details Date Type Department Care Team (Latest Contact Info) Description 04/14/2025 Results [facility]-Up [facility] 230 [place] [address] Shravan Dunne MD 230 [place] [address] Leukocytes Stool Qualitative, Stool - Gastrointestinal panel, [...] 06/29/2025 9:30 AM EST Office Visit [facility] MEDICINE [address] [place] [address] Tammi Burgess MD [address] [place] [address] documented as of this encounter Visit Diagnoses Not on filedocumented in this encounter Additional Health Concerns Assessment Noted Time PHQ-9 Depression Total Score: 8 12/27/19 25 3:12 PM EDT documented as of this encounter Care Teams Keg Varnisher Relationship Specialty Start Date End Date Tammi Burgess MD [address] [place] [address] PCP - General Internal Medicine 04/13/23 documented as of this encounter
--- OUTSIDE RECORDS SUMMARY | 2025-05-27 09:19 | XMS_ITS | Encounter Summary ---
Author Organization [employer] Address 75 [facility] 7t [place] [address] Care Team Providers Care Metal Grinder Name Role Phone Tammi Burgess MD Primary Care Pro vider Encounter Details Date Type Department Care Team ([facility] st Contact Info) Description 07/18/2024 Orders Only [facility] MEDICINE 230 [place] [address] ProviderChata MD Social History Tobacco Use Types [...] 1:55 PM EST Pelvic US ordered by TOWER CLEANER. Patient to fu results with TOWER CLEANER (Dr Espinoza). documented in this encounter Plan of Treatment Upcoming Encounters Date Type Department Care Team (Late st Contact Info) Description 06/29/2025 9:30 AM EST Office Visit [facility] MEDICINE [address] [place] [address] Tammi Burgess MD 230 [place] [address] documented as of this encounter Procedures Procedure [...] PM EST Narrative 08/09/2024 10:56 AM EST [address] [address] Magnetic Resonance Report Signed Patient: Karen Og MR#: [id number] 4 : 1970 Acct:[id number] Age/Sex: 54 / F ADM Date: 08/07/24 Loc: HO.MRI Attending Dr: Keyon Bowles MD Ordering Physician: Keyon Bowles MD Date of Service: 08/07/24 Procedure(s): MR knee LT wo con Accession Number(s): [id number] cc: Tammi Burgess MD; Keyon Bowles MD [...] 08/09/24 1053 DD/ 1458 TD/TT: 08/07/24 1507 Flume Worker: Procedure Note Donotuseinterpreter, Image - 08/09/[address] [address] Magnetic Resonance Report Signed Patient: Karen Og MMR#: [id number] 4 : 1970Acct:[id number] Age/Sex: 54 / FADM Date: 08/07/24 Loc: HO.MRI Attending Dr: Keyon Bowles MD Ordering Physician: Keyon Bowles MD Date of Service: 08/07/24 Procedure(s): MR knee LT wo con Accession Number(s): [id number] cc: Tammi Burgess MD; Keyon Bowles MD [...] 08/09/24 1053 DD/ 1458 TD/TT: 08/07/24 1507 Flume Worker: us [employer] External Provider IMG MRI PROCEDURES Final Result * US Pelvis Transvaginal (08/02/2024 4:26 PM EST) Anatomical Region Laterality Modality Pelvis Ultrasound 08/02/2024 4:26 PM EST Narrative 08/02/2024 4:27 PM EST [place] [address] Ultrasound Report Signed Patient: Karen Og MR#: [id number] 4 : 1970 Acct:[id number] Age/Sex: 54 / F ADM Date: 08/01/24 Loc: .US Attending Dr: Juan Espinoza MD Ordering Physician: Juan Espinoza MD Date of Service: 08/01/24 Procedure(s): US pelvic and transvaginal Accession Number(s): [id number] cc: Tammi Burgess MD; Juan Espinoza MD [...] 08/02/24 1626 DD/ 1626 TD/TT: 08/02/24 162 Flume Worker: Procedure Note Donotuseinterpreter, Image - 08/02/2024 [place] [address] Ultrasound Report Signed Patient: Karen Og MMR#: [id number] 4 : 1970Acct:[id number] Age/Sex: 54 / FADM Date: 08/01/24 Loc: HO.US Attending Dr: Juan Espinoza MD Ordering Physician: Juan Espinoza MD Date of Service: 08/01/24 Procedure(s): US pelvic and transvaginal Accession Number(s): [id number] cc: Tammi Burgess MD; Juan Espinoza MD [...] OV> 08/02/241625 DD/ 1626 TD/TT: 08/02/24 162 Flume Worker: [facility] External Provider IMG US PROCEDURES Final Result * Hm Colonoscopy (05/28/2022 1:55 PM EDT) Historical Provider HEALTH MAINTENANCE Final Result documented in this encounter Visit Diagnoses Not on filedocumented in this encounter Additional Health Concerns Assessment Noted Time PHQ-9 Depression Total Score: 5 10/20/19 24 10:39 AM EDT documented as of this encounter Care Teams Metal Grinder Relationship Specialty Start Date End Date Tammi Burgess MD [address] [place] [address] PCP - General Internal Medicine 04/13/23 documented as of this encounter
--- OUTSIDE RECORDS SUMMARY | 2025-05-27 09:19 | XMS_ITS | Encounter Summary ---
Author Organization [employer] [facility] Address [address] [place] [address] [address] [place] [address] Care Team Providers Care Research Neuropsychologist Name Role Phone Charito Lawrence Primary Care Provider Tammi Downs MD Primary Care Pro vider Encounter Details Date Type Department Care Team (Latest Contact Info) Description 07/29/2018 Abstract [facility] CONVERSIONS Dental, Provider, DDS [...] Description 06/29/2025 9:30 AM EST Office Visit [facility] MEDICINE [address] [place] [address] Tammi Burgess MD [address] [place] [address] documented as of this encounter Visit Diagnoses Not on filedocumented in this encounter Care Teams Research Neuropsychologist Relationship Specialty Start Date End Date Charito Lawrence FNP PCP - General Family Medicine 05/17/21 04/12/23 Tammi Burgess MD [address] [place], [place] [phone] PCP - General Internal Medicine 04/13/23 documented as of this encounter
--- OUTSIDE RECORDS SUMMARY | 2025-05-27 09:19 | XMS_ITS | Encounter Summary ---
Author Organization [email or web address] Address [address] [place] [address] 7 [place] [address] Care Team Providers Care Pencils Washer Name Role Phone Tammi Burgess MD Primary Care Pro vider Reason for Referral * Consultation (Routine) - Closed Specialty Diagnoses / Procedures Referred By Contac t Referred To Contact Orthopaedic Surgery Diagnoses Knee pain, unspecified chronicity, unspecified laterality Tammi Burgess MD [address] [place] [address] Phone: tel: fax: [facility] Orthopedics [address] [place] [address] Phone: tel: Referral ID Status Reason Start Date Expiration Date V isits Requested Visits Authorized [id number] Closed Specialty Services Required 11/24/2024 11/24/2025 6 6 Encounter Details Date Type Department Care Team (Late st Contact Info) Description 12/07/2024 Orders Only [facility] [address] [place] [phone] Tammi Burgess MD [address] [place], [place] [phone] Knee pain, unspecified chronicity, unspecified laterality (Primary [...] Description 06/29/2025 9:30 AM EST Office Visit [facility] [address] [place] [phone] Tammi Burgess MD [address] [place] [address] Scheduled Referrals Name Type Priority Associated Diagnoses [...] documented as of this encounter Care Teams Pencils Washer Relationship Specialty Start Date End Date Tammi Burgess MD [address] [place] [id number] PCP - General Internal Medicine 04/13/23 documented as of this encounter
--- OUTSIDE RECORDS SUMMARY | 2025-05-27 09:19 | XMS_ITS | Clinical Summary ---
Author Organization [facility] Address [address] [place] [address] [place] [phone] Phone Care Team Providers Care Nursing Home Admissions Director Name Role Phone Popeye Vera NP Primary Care Provider [phone] Social History Tobacco Use Types Packs/Day Years [...] file Medical Devices Not on file Insurance [facility] NON NSPG PCP [employer] NON NSPG PCP [employer] NON NSPG PCP S[employer] NON NSPG PCP [place] NON NSPG PCP [employer] [facility] Address: [address] [place] [address] [employer] NON NSPG PCP [employer] NON NSPG PCP [place] NON NSPG PCP S[employer] NON NSPG PCP [employer] [facility] [place] [phone] Care Teams Nursing Home Admissions Director Relationship Specialty Start Date End Date Popeye Vera NP [address] [place] [address] PCP - General 12/16/18 Additional Source Comments The information contained in this document represents components of the legal health record. It is not the complete legal health record.[facility]
--- OUTSIDE RECORDS SUMMARY | 2025-05-27 09:19 | XMS_ITS | Clinical Summary ---
Author Organization [employer] Address [address] [place] [address] 7t [place] [address] Care Team Providers Care Business Relationship Manager Name Role Phone Tammi Burgess MD [...] cancer: Never smoker Eye: 02/2023 WNL at [facility] Dental: up to date Hernia of abdominal [...] Department Care Team Description 05/25/2025 Results Follow-Up [facility] [address] [place] [phone] Stephani Crystal RN Ova and Parasites, Strongyloides Antibody (IgG) 05/23/2025 Refill [facility] [address] [address] Tammi Eldridge MD Epigastric pain 05/19/2025 Telephone [facility] [address] [place] [phone] Tammi Burgess MD Medication Question 05/17/2025 Orders Only [facility] [address] [place] [phone] Tammi Burgess MD Eosinophilia, unspecified type (Primary Dx) 05/17/2025 Orders Only GENERIC EXTERNAL DATA DEPARTMENT Provider, Generic External Data 05/03/[address] [address] Tammi Burgess MD 04/28/2025 10:20 AM EDT Office Visit [facility] [address] [place] [phone] Tammi [place] MD Epigastric pain 04/28/2025 Travel 04/17/2025 1:40 PM EDT Office Visit [facility] [address] [address] Kristal San ANP Rash (Primary Dx) 04/17/2025 Travel 04/14/2025 Results Follow-Up [facility] [address] [address] Shravan Dunne MD Leukocytes Stool Qualitative, Stool - Gastrointestinal panel, CBC auto differential, Comprehensive Metabolic Panel 04/12/2025 Orders Only [facility] [address] [place] [address] Shravan Dunne MD 04/11/2025 7:20 PM EDT [facility] [address] [address] Shravan Dunne MD Epigastric pain (Primary Dx) 04/11/2025 Travel 04/04/2025 Refill [facility] [address] [place], [place] [phone] Tammi Burgess MD 03/10/[address] [address] Tammi Burgess MD Low back pain associated with a spinal disorder other than radiculopathy or spinal stenosis 03/10/[address] [address] Tammi Burgess MD Results 03/09/2025 Results Follow-Up [address] [address] Tammi Burgess MD BI Mammogram Screening Tomosynthesis Bilateral 03/02/2025 1:30 PM EDT Office Visit [address] [address] Tammi Burgess MD Hyperlipidemia, unspecified hyperlipidemia type [...] 06/29/2025 9:30 AM EST Office Visit [facility] [address] [place] [address] [phone] Tammi Burgess MD [address] [place], [place] [phone] Health Maintenance Due Date Last Done Comments [...] PM EDT) Ova and Parasite Trichrome TNP [facility] Comment:DUPLICATE LEAT Stool Rectal contents / Unknown 05/23/2025 3:48 PM EDT 05/23/2025 3:49 PM EDT us Tammi Sorenson MD LAB MICROBIOLOGY - GENERAL ORDERABLES Final Result [facility] [address] [place] [phone] * Strongyloides Antibody (IgG) (05/18/2025 9:31 AM EDT) Strongyloides Antibody IgG NEGATIVE [facility] Comment:REFERENCE RANGE: NEG ATIVEStrongyloides stercoralis is a parasiticNematode found in tropical and subtropicalregions. Because of low larval densities infeces, stool examination is a relativelyinsensitive diagnostic test; antibody detectionoffers increased sensitivity. Patients withlatent infections who are immunosuppressed orreceiving immunosuppressive therapy are at riskof life- threatening hyperinfection. Significantcrossreactivity may be observed in otherhelminth infections.THIS TEST WAS PERFORMED AT:[employer] [id number] [facility] [place] [address]KHICRMARY JOHNSTON MD,PHD,ESTHER Blood Venous blood specimen / Unknown 05/18/2025 9:31 AM EDT 05/18/2025 11:42 AM EDT us Tammi Sorenson MD LAB BLOOD ORDERAB LES Final Result [facility] [address] [place] [address] [phone] * Slide Review (05/17/2025 7:46 AM EDT) Only the most recent of2 resultswithin the time period is included. Pathologist [facility] Slide Review VERIFIED [facility] 05/17/2025 7:46 AM EDT 05/17/2025 7:50 AM EDT us Generic External Data Provider LAB BLOOD ORDERAB LES Final Result Performing Organization Address City/[facility]/ZIP Co de Phone Number [facility] [address] [place] [phone] * (ABNORMAL) CBC auto differential (05/17/2025 7:46 AM EDT) Only the most recent of2 resultswithin the time period is included. Pathologist [facility] White Blood Count 8.6 4.8 - 10.8 X10*3/uL [facility] Red Blood Count 4.11(L) 4.20 - 5.50 X10*6/uL [facility] Hemoglobin 12.8 12.0 - 16.0 g/dl [facility] Hematocrit 39.7 37.0 - 47.0 % [facility] Mean Corpuscular Volume 96.6 80.0 - 98.0 fL [facility] Mean Corpuscular Hemoglobin 31.1 27.0 - 33.0 pg [facility] Mean Corpuscular HGB Conc 32.2 31.0 - 35.0 g/dl [facility] Red Cell Distribution Width 14.6 11.0 - 16.0 % [facility] Platelet Count 166 160 - 400 X10*3/uL [facility] Mean Platelet Volume 9.8 9.4 - 12.3 fL [facility] Neutrophils Percent Auto 29.0(L) 45 - 73 % [facility] Imm Gran Pct Auto 0.2 0.0 - 0.4 % [facility] Lymphocytes Percent Auto 21.5 20 - 40 % [facility] Monocytes Percent Auto 7.5 2 - 11 % [facility] Eosinophils Percent Auto 41.2(H) 0 - 4 % [facility] Basophils Percent Auto 0.6 0 - 2 % [facility] NRBC Pct Auto 0.0 0.0 - 0.2 /100WBC [facility] Neutrophils Absolute Auto 2.5 2.0 - 8.3 x10*3/uL [facility] Imm Gran Abs Auto 0.02 0.00 - 0.03 X10*3/uL [facility] Lymphocytes Absolute Auto 1.9 1.2 - 4.9 X10*3/uL [facility] Monocytes Absolute Auto 0.7 0.1 - 1.2 X10*3/uL [facility] Eosinophils Absolute Auto 3.6(H) 0.0 - 0.4 X10*3/uL [facility] Basophils Absolute Auto 0.1 0.0 - 0.2 X10*3/uL [facility] NRBC Abs Auto 0.000 0.0 - 0.012 X10*3/uL [facility] 05/17/2025 7:46 AM EDT 05/17/2025 7:50 AM EDT Generic External Data Provider LAB BLOOD ORDERAB LES Edited Result - Final Performing Organization Address [facility] Co de Phone Number [facility] [address] [place] [phone] * Magnesium (05/17/2025 7:46 AM EDT) Magnesium 2.0 1.6 - 2.6 mg/dL [facility] 05/17/2025 7:46 AM EDT 05/17/2025 7:50 AM EDT Generic External Data Provider LAB BLOOD ORDERAB LES Final Result Performing Organization Address [facility] Co de Phone Number [facility] [address] [place] [phone] * Lipase (05/17/2025 7:46 AM EDT) Lipase 43 8 - 78 U/L [facility] 05/17/2025 7:46 AM EDT 05/17/2025 7:50 AM EDT Generic External Data Provider LAB BLOOD ORDERAB LES Final Result Performing Organization Address [facility] Co de Phone Number [facility] [address] [place] [phone] * Hepatic Function Panel (05/17/2025 7:46 AM EDT) Bilirubin, Total 0.4 0.0 - 1.0 mg/dL [facility] Bilirubin, Direct 0.1 0.0 - 0.5 mg/dL [facility] Aspartate Amino Transferase 28 5 - 31 U/L [facility] Alanine Aminotransferase 29 0 - 31 U/L [facility] Total Protein 7.1 6.5 - 8.0 g/dL [facility] Albumin Level 3.8 3.5 - 5.0 g/dL [facility] Alkaline Phosphatase 80 39 - 117 U/L [facility] 05/17/2025 7:46 AM EDT 05/17/2025 7:50 AM EDT us Generic External Data Provider LAB BLOOD ORDERAB LES Final Result [facility] [address] [place] [phone] * Basic Metabolic Panel (05/17/2025 7:46 AM EDT) Sodium 142 135 - 145 mmol/L [facility] Potassium 4.6 3.3 - 5.1 mmol/L [facility] Chloride 107 96 - 108 mmol/L [facility] Carbon Dioxide 28 22 - 29 mmol/L [facility] Anion Gap 12 12 - 20 [facility] Urea Nitrogen (BUN) 15 9 - 16 mg/dL [facility] Creatinine, Serum 0.75 0.5 - 1.4 mg/dL [facility] Creatinine Clr Calc Pharmacy 77.1 [facility] Comment:Provided height and weight: 165.1 cm,65.771 kg.eGFR (calculated from the MDRD study equation) and eCrCl(calculated from the Cockcroft-Gault equation) are based ondifferent parameters and may not yield comparable results.If eCrCl result is absurd, please check patient'sheight/weight. Estimated Glomerular Filt Rate >60 [facility] Comment:Chronic Kidney Disea se: Estimated GFR < 60 mL/min/1.19s5Teqgxn Kidney Disease: Estimated GFR < 15 mL/min/1.73m2 Glucose 86 60 - 115 mg/dL [facility] Calcium 9.2 8.4 - 10.2 mg/dL [facility] 05/17/2025 7:46 AM EDT 05/17/2025 7:50 AM EDT us Generic External Data Provider LAB BLOOD ORDERAB LES Final Result Performing Organization Address City/State/[facility] Co de Phone Number [facility] [address] [place] [phone] * FL Esophagus Barium Swallow w/Air (04/18/2025 9:40 AM EDT) Anatomical Region Laterality Modality Head, Neck Radiographic Rachel ging 04/18/2025 9:40 AM EDT Narrative 04/18/2025 11:37 AM EDT [address] [address] Fluoroscopy Report Signed Patient: Karen Og MR#: [id number] 4 : 1970 Acct:[id number] Age/Sex: 54 / F ADM Date: 04/18/25 Loc: JAJA Attending Dr: Tammi Sorenson MD Ordering Physician: Tammi Burgess MD Date of Service: 04/18/25 Procedure(s): FL barium swallow with air Accession Number(s): [id number] cc: Tammi Burgess MD Reason for Exam: [...] OV> 04/18/25 1134 DD/ TD/TT: 04/18/25 0949 Fiber Locking Supervisor: Procedure Note Donotuseinterpreter, Image - 04/18/2025 [place] [address] Fluoroscopy Report Signed Patient: Karen Og [facility]#: [id number] 4 : 1970Acct:[id number] Age/Sex: 54 / FADM Date: 04/18/25 Loc: HO.XRAY Attending Dr: Tammi Sorenson MD Ordering Physician: Tammi Burgess MD Date of Service: 04/18/25 Procedure(s): FL barium swallow with air Accession Number(s): [id number] cc: Tammi Burgess MD Reason for Exam: [...] MD Signed By: <Electronically signed by Garett Preez MD in OV> 04/18/25 1134 DD/ 0940 TD/TT: 04/18/25 0949 Fiber Locking Supervisor: us Tammi Sorenson MD IMG FLUOROSCOPY P ROCEDURES Final Result * Leukocytes Stool Qualitative (04/13/2025 10:00 AM EDT) Leukocytes Stool Qualitative NEGATIVE NEGATIVE [facility] Stool 04/13/2025 10:0 0 AM EDT 04/13/2025 4:48 PM EDT us Shravan Dunne MD LAB BODY FLUIDS AND STOOLS ORDER JEROMY Final Result [facility] [address] [place] [phone] * Stool - Gastrointestinal panel (04/13/2025 10:00 AM EDT) Campylobacter Not Detected Not Detect. [facility] Plesiomonas shigelloides Not Detected Not Detect. [facility] Salmonella Not Detected Not Detect. [facility] Vibrio Not Detected Not Detect. [facility] Vibrio cholerae Not Detected Not Detect. [facility] YERSINIA ENTEROCOLITICA Not Detected Not Detect. [facility] Enteroaggregative E. coli (EAEC) Not Detected Not Detect. [facility] Enteropathogenic E. coli (EPEC) Not Detected Not Detect. [facility] Enterotoxigenic E. coli (ETEC) lt/st Not Detected Not Detect. [facility] Shiga-like toxin-producing E. coli (STEC) stx1/stx2 Not Detected Not Detect. [facility] E coli O157 Not applicable Not Detect. [facility] Comment:E. coli containing t he O157 antigen are a subset ofShiga-like toxin- producing E. coli (STEC). Shigella/Enteroinvasive E. coli (EIEC) Not Detected Not Detect. [facility] Cryptosporidium Not Detected Not Detect. [facility] Cyclospora cayetanensis Not Detected Not Detect. [facility] Entamoeba histolytica Not Detected Not Detect. [facility] Giardia lamblia Not Detected Not Detect. [facility] Adenovirus F 40/41 Not Detected Not Detect. [facility] Astrovirus Not Detected Not Detect. [facility] Norovirus GI/GII Not Detected Not Detect. [facility] Rotavirus A Not Detected Not Detect. [facility] Sapovirus Not Detected Not Detect. [facility] Comment: All results must be [...] assay is performed by Multiplexed PCR, utilizing Wireless Seismic Array. Stool Rectal contents / Unknown 04/13/2025 10:00 AM EDT 04/13/2025 4:48 PM EDT us Shravan Dunne MD LAB MICROBIOLOGY - GENERAL ORDER JEROMY Final Result [facility] [address] [place] [phone] * Helicobacter pylori??Antigen, EIA, Stool (04/13/2025 10:00 AM EDT) H pylori Ag Stool SEE NOTE [facility] Comment:HELICOBACTER PYLORI AG, EIA, STOOL Micro Number: [id number] Test Status: Final Specimen Source: Stool Specimen Quality: Adequate H.pylori Ag: Not Detected Antimicrobials, proton pump inhibitors, and bismuth preparations inhibit H. pylori and ingestion up to two weeks prior to testing may cause false negative results. If clinically indicated the test should be repeated on a new specimen obtained two weeks after discontinuing treatment. Reference Range: Not DetectedTHIS TEST WAS PERFORMED AT:[facility] [phone] BLANCAS MD Stool Rectal contents / Unknown 04/13/2025 10:00 AM EDT 04/13/2025 4:48 PM EDT us Shravan Dunne MD LAB BODY FLUIDS AND STOOLS ORDER JEROMY Final Result Performing Organization Address City/[facility]/ZIP Co de Phone Number [facility] [address] [place] [phone] * (ABNORMAL) Comprehensive Metabolic Panel (04/12/2025 10:09 AM EDT) Sodium 141 135 - 145 mmol/L [facility] Potassium 4.5 3.3 - 5.1 mmol/L [facility] Chloride 104 96 - 108 mmol/L [facility] Carbon Dioxide 30(H) 22 - 29 mmol/L [facility] Anion Gap 12 12 - 20 [facility] Urea Nitrogen (BUN) 15 9 - 16 mg/dL [facility] Creatinine, Serum 0.69 0.5 - 1.4 mg/dL [facility] Estimated Glomerular Filt Rate >60 [facility] Comment:Chronic Kidney Disea se: Estimated GFR < 60 mL/min/1.08a4Pkdtop Kidney Disease: Estimated GFR < 15 mL/min/1.73m2 Glucose 93 60 - 115 mg/dL [facility] Calcium 9.2 8.4 - 10.2 mg/dL [facility] Bilirubin, Total 0.3 0.0 - 1.0 mg/dL [facility] Aspartate Amino Transferase 23 5 - 31 U/L [facility] Alanine Aminotransferase 11 0 - 31 U/L [facility] Total Protein 6.9 6.5 - 8.0 g/dL [facility] Albumin Level 3.8 3.5 - 5.0 g/dL [facility] Alkaline Phosphatase 66 39 - 117 U/L [facility] Blood Venous blood specimen / Unknown 04/12/2025 10:09 AM EDT 04/12/2025 11:14 AM EDT us Shravan Dunne MD LAB BLOOD ORDERABLES Final Resul t Performing Organization Address [facility]/ZIP Co de Phone Number [facility] [address] [place] [phone] * US Pelvis Transvaginal (02/27/2025 4:30 PM EDT) Anatomical Region Laterality Modality Pelvis Ultrasound 02/27/2025 4:30 PM EDT Narrative 02/27/2025 5:46 PM EDT [address] [address] Ultrasound Report Signed Patient: Karen Og MR#: [id number] 4 : 1970 Acct:[id number] Age/Sex: 54 / F ADM Date: 02/27/25 Loc: HO.US Attending Dr: Juan Espinoza MD Ordering Physician: Juan Espinoza MD Date of Service: 02/27/25 Procedure(s): US pelvic and transvaginal Accession Number(s): [id number] cc: Tammi Burgess MD; Juan Espinoza MD [...] 02/27/25 1743 DD/ 1630 TD/TT: 02/27/25 1645 Fiber Locking Supervisor: Procedure Note Donotuseinterpreter, Image - 02/27/2025 [place] [address] Ultrasound Report Signed Patient: Karen Og MMR#: [id number] 4 : 1970Acct:[id number] Age/Sex: 54 / FADM Date: 02/27/25 Loc: HO.US Attending Dr: Juan Espinoza MD Ordering Physician: Juan Espinoza MD Date of Service: 02/27/25 Procedure(s): US pelvic and transvaginal Accession Number(s): [id number] cc: Tammi Burgess MD; Juan Espinoza MD [...] 02/27/25 1743 DD/ 1630 TD/TT: 02/27/25 1645 Fiber Locking Supervisor: [facility] External Provider IMG US PROCEDURES Final Result * BI Mammogram Screening Tomosynthesis Bilateral (02/27/2025 2:00 PM EDT) Anatomical Region Laterality Modality Breast Bilateral Mammography 02/27/2025 2:00 PM EDT Narrative 03/09/2025 8:24 AM EDT [facility] [address] [place] [address] Mammography Report Signed Patient: Karen Og MR#: [id number] 4 : 1970 Acct:[id number] Age/Sex: 54 / F ADM Date: 02/27/25 Loc: HO.MAMMO Attending Dr: Tammi Sorenson MD Ordering Physician: Tammi Burgess MD Re sults: 1Negative Date of Service: 02/27/25 Follow Up: 1 Year From Orig inal Mammogram Procedure(s): MM tomosynthesis screening BI Accession Number(s): [id number] cc: Tammi Burgess MD EXAMINATION: MM SCREENING [...] 03/09/25 0821 DD/ 1400 TD/TT: 02/27/25 1412 Fiber Locking Supervisor: Procedure Note Donotuseinterpreter, Image - 03/09/2025 [facility] [address] [place] [address] Mammography Report Signed Patient: Karen Og MMR#: [id number] 4 : 1970Acct:[id number] Age/Sex: 54 / FADM Date: 02/27/25 Loc: HO.MAMMO Attending Dr: Tammi Sorenson MD Ordering Physician: Tammi Burgesse sults: 1Negative Date of Service: 02/27/25Follow Up: 1 Year From Orig inal Mammogram Procedure(s): MM tomosynthesis screening BI Accession Number(s): [id number] cc: Tammi Burgess MD EXAMINATION: MM SCREENING [...] 03/09/25 0821 DD/ 1400 TD/TT: 02/27/25 1412 Fiber Locking Supervisor: Tammi Sorenson MD IMG BI PROCEDURES Final Result * Hepatitis C Antibody with Reflex to HCV, RNA, Quantitative, Real-Time PCR (02/06/2025 10:04 AM EDT) Hepatitis C Antibody Nonreactive Nonreactive [facility] Comment:Antibodies to HCV no t detected; does not exclude early acuteHCV infection. Blood Venous blood specimen / Unknown 02/06/2025 10:04 AM EDT 02/06/2025 11:11 AM EDT Tammi Sorenson MD LAB BLOOD ORDERAB LES Final Result [facility] [address] [place] [address] [phone] * HIV-1/2 Antigen and Antibodies, Fourth Generation, with Reflexes (02/06/2025 10:04 AM EDT) HIV AB/AG Nonreactive Nonreactive [facility] Comment:HIV-1 p24 Ag and/or HIV-1/HIV-2 Ab not detected.A test result that is nonreactive does not exclude thepossibility of exposure to or infection with HIV-1 and/orHIV-2. Nonreactive results in this assay for individualswith prior exposure to HIV-1 and/or HIV-2 may be due toantigen and antibody levels that are below the limit ofdetection of this assay.The Acheive CCA HIV Ag/Ab Combo assay result andsupplemental assay results should be interpreted inconjunction with the patient's clinical presentation,history and other laboratory results. If the results areinconsistent with clinical evidence, additional testing issuggested to confirm the result. Blood Venous blood specimen / Unknown 02/06/2025 10:04 AM EDT 02/06/2025 11:11 AM EDT us Tammi Sorenson MD LAB BLOOD ORDERAB LES Final Result [facility] [address] [place] [phone] * Hemoglobin A1c (02/06/2025 10:04 AM EDT) Hemoglobin A1c 5.5 <6.0 % [facility] Comment:Hemoglobin A1C Refer ence Range Adults: 4.8 - 6.0 % Non diabetic: < 6.0 % Goal: < 7.0 %Additional Action Suggested: > 8.0 %Note: Hemoglobin A1c results are invalid for patients with abnormal amounts of HbF. Blood transfusions may impact the HbA1c concentration in the patient sample. Estimated Average Glucose 111 mg/dL [facility] Comment:eAG = Estimated ave rage glucose which is %A1C expressed asaverage glucose, using the formula of the G1J-WdolejxPgokjyi Glucose study (ADAG), Diabetes Care, Vol.31,#8,2007 Blood Venous blood specimen / Unknown 02/06/2025 10:04 AM EDT 02/06/2025 11:11 AM EDT Tammi Sorenson MD LAB BLOOD ORDERAB LES Final Result [facility] [address] [place] [phone] * Hm Colonoscopy (05/28/2022 1:55 PM EDT) Historical Provider HEALTH MAINTENANCE Final Result * HPV E6/E7 RFLX JACOB 16 18/45 (08/15/2021 1:40 PM EST) Pathologist [facility] HPV 16 RNA TNP [facility] HPV 18/45 RNA TNP [facility] HPV E6 E7 ADD TNP [facility] HPV mRNA E6/E7 rflx Not Detected Not Detected [facility] Comment: Methodology: Fuel System Maintenance Worker-Mediated Amplification This assay detects E6/E7 viral messenger RNA (mRNA) from 14 high-risk HPV types (16,18,31,33,35,39,45,51,52,56,58,59,66,68). The analytical performance characteristics of this assay have been determined by [employer]. The modifications have not been cleared or approved by the FDA. This assay has been validated pursuant to the CLIA regulations and is used for clinical purposes. For additional information, please refer to http://education.Authernative.Synetiq/faq/CWP680a5 (This link if provided for information/ educational purposes only.) THIS TEST WAS PERFORMED AT: [facility] [address] [place] [address] [address],[place] [address] AMY BLANCAS MD 08/15/2021 1:40 PM EST Historical Provider HISTORICAL/NON ORDERABLE LABS Final Result Performing Organization Address City/[facility]/ZIP Co de Phone Number [facility] [address] * THINPREP PAP (01/11/2021 11:51 AM [...] along with historic and current clinical information. Poultry Process Worker : SEE COMMENT [facility] Comment: GSG, CT(ASCP) CT screening location: [place] [address] Interpretation/R esult: Negative for intraepithelial lesion or malignancy. [facility] LMP: NONE GIVEN [facility] Prev. BX: NONE GIVEN [facility] Prev. PAP: NONE GIVEN [facility] SOURCE: None given [facility] Statement Of Adequacy: SEE COMMENT [facility] Comment: Satisfactory for evaluation. Endocervical/transformation zone component present. 01/11/2021 11:5 1 AM EDT us Historical Provider MD LAB PATHOLOGY ORDERABLES Final Result Performing Organization Address City/State/[facility] Co de Phone Number [facility] [address] from Last 3 Months or Most Recently Relevant to Health Maintenance [facility] AD[place] DENTAL - [facility] FULL (MEDICAID) Care Teams Business Relationship Manager Relationship Specialty Start Date End Date Tammi Burgess MD [address] [place] [address] PCP - General Internal Medicine 04/13/23
[2025-05-27 11:12] LABS: Amylase 47 U/L (28-100); Lipase 34 U/L (8-78)
== END 2025-05-27 09:17 | disposition home or self-care (01) ==
LOC: HO.LAB 09:16
PROVIDERS: PCP Student in an Organized Health Care Education/Training Program; Visit Provider Nurse Practitioner Family
DX: K21.9 Gastro-esophageal reflux disease without esophagitis (principal); R10.13 Epigastric pain; R19.7 Diarrhea, unspecified
CPT/HCPCS: 36415; 82150; 83690; 86140; 86364

== ENCOUNTER 2025-05-29 11:48 | Outpatient (AMB) | payer MEDICAID, SELFPAY ==
--- NOTE | 2025-05-29 11:56 | MHC.OFFVIS ---
Intake Visit Reasons: 3 Month follow up Flyer Maker Required: Yes Flyer Maker Name: #[id number] Allergies aspirin (ASPIRIN) Allergy (Unknown, Verified 05/29/25 12:07) SWELLING, facial swelling Medication List - Last Reconciled 05/29/25 by Melinda Ramirez CNP celecoxib (Celebrex) 200 mg PO DAILY PRN clonazepam (Klonopin) 0.5 mg PO BEDTIME 30 days cyclobenzaprine 5 mg PO BEDTIME PRN dicyclomine 10 mg PO TID divalproex (Depakote) 500 mg orally 1 tab in AM and 2 tabs at bedtime; famotidine 20 mg PO BID gabapentin 300 mg PO TID lidocaine 5% patches topical ondansetron HCl 4 mg PO Q8H PRN pantoprazole 40 mg PO QAM pregabalin 25 mg PO BID triamcinolone acetonide 0.1% appl topical HPI Comments Details: 54-year-old woman with epilepsy causing nocturnal generalized seizures and anxiety disorder. She was doing okay. No further seizures, last seizure was in sleep around mid-January. She was taking clonazepam at bedtime and was still having some shaking in hands, worse if she was holding something. No significant functional impairment. No difficulty eating, drinking, or swallowing. Sometimes she did not notice that her hands were shaking until family or friends pointed it out to her. It could be worse at times than others. Her father had some shaking. She was dealing with some GI issues and was seen in ER. She was caring for her mother with dementia a few hours a day. [facility] Medical History (Updated 05/26/25 @ 15:44 by Edith Vásquez CNP) Esophageal dysmotility Diarrhea Chronic gastroesophageal reflux disease Epigastric pain Epilepsy Seizure disorder Dizziness Osteoarthritis of knees, bilateral Migraine Anxiety disorder Fibromyalgia Seizure Surgical History History of cholecystectomy History of tubal ligation Family History Maternal Grandmother Diabetes Father HTN (hypertension) Mother HTN (hypertension) Social History Household Members: Spouse Household Members Other:: son Housing: House Are you a primary team primary care physician to a significant other at home: No Do you presently have visiting nurse or other home services: No Alcohol intake: current Alcohol intake frequency: holidays/special occasions only Patient Tobacco Use Status: Never used Tobacco Current occupational status: employed 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 Sexual orientation: Straight/Heterosexual Gender identity: Female Female Reproductive History Menstrual Age of Menarche: 10 Review of Systems Const Denies chills, Denies daytime sleepiness, Reports difficulty sleeping, Denies fatigue, Denies fever(s), Denies frequent falls, Denies headache(s), Denies increased appetite, Denies poor appetite, Denies snoring, Denies weakness, Denies weight gain and Denies weight loss Eyes Denies loss of vision ENT Denies vertigo, Reports dizziness and Denies headache(s) Card Denies chest pain at rest, Denies chest pain with activity, Denies syncope, Denies leg edema and Denies palpitations Resp Denies snoring GI Denies constipation, Denies heartburn, Denies diarrhea and Denies nausea Denies urinary frequency, Denies urinary incontinence and Denies urinary urgency Musc Denies abnormal gait, Denies numbness and Denies tingling Skin/Breast Denies dry skin and Denies rash Neuro Denies abnormal gait, Denies vertigo, Reports dizziness, Denies syncope, Denies frequent falls, Denies headache(s), Denies lack of coordination, Denies loss of vision, Denies memory loss, Denies numbness, Denies restless legs, Reports seizure-like activity, Denies tingling, Denies paresthesias, Reports tremor(s) and Denies weakness Psych Reports anxiety, Denies depression, Denies auditory hallucinations, Denies memory loss, Denies visual hallucinations and Denies suicidal ideation Endo Denies fatigue and Denies palpitations Physical Exam Const Other: General Appearance:? normal, in no acute distress. Skin:? no rashes, no significant birthmarks. Heart:? S1, S2 normal, no murmurs. Lungs:? clear anteriorly and posteriorly. Extremities:? no edema. Psych:? alert, oriented, cognitive function intact, cooperative with exam. Neuro Other: Mental Status:?Normal attention, orientation, memory and affect.? Cranial Nerves:?Pupils are equal, round and reactive to light. External occular muscles are intact. Visual hathaway are full. Face is symmetrical. Facial sensations are normal. Tongue is midline. Palate elevates symmetrically. Shoulder shrugging is normal. Hearing to bedside conversation is normal. Coordination:?No ataxia,?no titubation.? Gait Exam: Within normal limits. Cerebellar Signs:?[id number] with mild tremor. Extrapyramidal System:?No tremor, rigidity with normal facial expressions.? Pronator Drift:?Not present.? Involuntary Movements:?Fine tremors of outstretched hands, L > R. Speech:?Normal.? Results Reviewed Results Reviewed: [place] [facility] [place] cont: WNL MRI brain [place] [facility] [place] cont in 2012: minimal punctate WM changes MRI brain WWO at [facility] [place]: Minimal WM changes EEG at office in Jun 2020: WNL Routine EEG at office in 2012: WNL 24 EEG at [facility] in 2012: revealed left temporal sharps 24 EEG at [facility] in 2013: WNL EEG at office in Aug 2014: WNL EEG at office in Sep 2015: WNL EEG at office in 2016: WNL Amb EEG at [facility] in January 2022: left temp sharps EEG at office in Jun 2024: WNL. Assessment & Plan Assessment & Plan (1) Epilepsy: Code(s): G40.909 - Epilepsy, unspecified, not intractable, without status epilepticus Category: Medical Qualifiers: Epilepsy type: unspecified Intractability: not intractable Status epilepticus: without status epilepticus Qualified Code(s): G40.909 - Epilepsy, unspecified, not intractable, without status epilepticus Plan: Continue Depakote 500mg 1 tablet in the morning and 2 tablets at bedtime. (2) Anxiety disorder: Code(s): F41.9 - Anxiety disorder, unspecified Category: Medical Qualifiers: Anxiety disorder type: unspecified anxiety disorder Qualified Code(s): F41.9 - Anxiety disorder, unspecified Plan: Continue clonazepam 0.5mg 1 tablet at bedtime #30 for 30 days. She had significant component of anxiety, and would likely benefit from working with therapist, however she was not interested at this time. (3) Migraine: Code(s): G43.909 - Migraine, unspecified, not intractable, without status migrainosus Category: Medical Qualifiers: Intractability: not intractable Migraine type: unspecified Status migrainosus presence: without status migrainosus Qualified Code(s): G43.909 - Migraine, unspecified, not intractable, without status migrainosus Plan: No significant migraines. (4) Tremor: Code(s): R25.1 - Tremor, unspecified Category: Medical Plan: Very mild tremor noted on exam, no significant functional impairment. She was bothered by tremor, especially when it was pointed out by others. Depakote level ordered. Discussed treatment options, including medications and possible side effects, prefers to have lab done first. Orders: Orders Valproate Today G40.909 - Epilepsy, unspecified, not intractable, without status epilepticus, R25.1 - Tremor, unspecified Medications: Changed From divalproex (Depakote) 500 mg orally 1 tab in AM and 2 tabs at bedtime; To divalproex (Depakote) 500 mg orally 1 tab in AM and 2 tabs at bedtime; 90 days 270 tabs 1RF Refilled clonazepam (Klonopin) 0.5 mg PO BEDTIME 30 tabs 2RF 30 days divalproex (Depakote) 500 mg orally 1 tab in AM and 2 tabs at bedtime; 270 tabs 1RF 90 days Coding Level of Care Code Est Pt Level 4 (62656) Diagnoses Nonintractable epilepsy without status epilepticus, unspecified epilepsy type G40.909 Epilepsy type: unspecified Intractability: not intractable Status epilepticus: without status epilepticus Anxiety disorder, unspecified type F41.9 Anxiety disorder type: unspecified anxiety disorder Migraine without status migrainosus, not intractable, unspecified migraine type G43.909 Intractability: not intractable Migraine type: unspecified Status migrainosus presence: without status migrainosus Tremor R25.1
--- OUTSIDE RECORDS SUMMARY | 2025-05-29 15:02 | XMS_ITS | Encounter Summary ---
Author Organization [facility] Address [address] [place] [phone] Phone Care Team Providers Care Wine Steward Name Role Phone Popeye Vera GLASS CHECKER Primary Care Provider [phone] Encounter Details Date Type Department Care Team (Late st Contact Info) Description 12/17/2018 Ancillary Orders [facility] [address] [place] [address] [place] [address] Fab Berry DO [address] [place] [address] Palpitations Social History Tobacco Use Types Packs/Day [...] Palpitations documented in this encounter Care Teams Wine Steward Relationship Specialty Start Date End Date Popeye Vera NP [address] [place] [address] PCP - General 12/16/18 documented as of this encounter Additional Source Comments The information contained in this document represents components of the legal health record. It is not the complete legal health record.[facility]
--- OUTSIDE RECORDS SUMMARY | 2025-05-29 15:02 | XMS_ITS | Clinical Summary ---
Author Organization [facility] Address [address] [place] [address] [place] [phone] Phone Care Team Providers Care Viscera Washer Name Role Phone Popeye Vera NP Primary Care Provider [phone] Social History Tobacco Use Types Packs/Day Years [...] Medical Devices Not on file Insurance [facility] NON NSPG PCP [employer] NON NSPG PCP [employer] NON NSPG PCP SIL[employer] NON NSPG PCP SIL[employer] NON NSPG PCP SILVER [employer]ITY [employer] NON NSPG PCP SILVER [employer]ITY CONNE[employer] NON NSPG PCP SILVER CLARITY CONNE[employer]CARE [employer] NON NSPG PCP SILVER CLARITY CONNE[employer]CARE [employer] NON NSPG PCP SILVER CLARITY CONNECTORCARE [place] [id number] Care Teams Viscera Washer Relationship Specialty Start Date End Date Popeye Vera NP [address] [place] [address] PCP - General 12/16/18 Additional Source Comments The information contained in this document represents components of the legal health record. It is not the complete legal health record.[facility]
--- OUTSIDE RECORDS SUMMARY | 2025-05-29 15:02 | XMS_ITS | Data Portability ---
Author Organization [place] [facility], Allergy Address [address] [address] Care Team Providers Care Revival Clerk Name Role Phone [facility] Primary Care Provider Assessment Encounter Date Assessment [...] as needed for subjective changes in hearing. [email or web address] Not available 07/05/2024 11:53:16 Plan of Treatment [...] Organization Details Recorded Time Abnormal auditory perception [id number] Active 024 Claudia pollard [facility] 11:26:51 Problem Notes None recorded. Procedures Surgical History Date Name Laterality Status Provider Name and Address Organization Details Recorded Time 07/05/20 24 Tympanometry - 17656 completed Claudia Love [facility] 07/05/2024 11:26:42 07/05/20 24 [employer] - 37483 completed Claudia Love [facility] 07/05/2024 11:26:38 Imaging Results None recorded. Procedure Notes None recorded. Medical Equipment None Reported. Allergies Allergen ID Allergen Name Allergen Category Reaction Reaction Severity Criticality Documentation Date Start Date Code Code System Note Provider Name and Address Organization Details Recorded Time 504894 aspirin medicatio n Not available Not available Not available 07/05/2024 1191 RxNorm Martine pollard [facility] 11:36:59 Medications Name Sig Start Date [...] Details Last Updated DateTime 07/05/2024 157.48 cm 91206.86 g Martine Pearce [place] [facility] 07/05/2024 11:36:51 Social History None recorded. Functional Status None recorded. Mental Status None recorded. Family History Nothing Reported. Medical History Condition Response GERD/Reflux Y Gynecological HistoryNo gynecological history recorded. Obstetrics History GPAL:G 0 P 0 0 0 0 Past Encounters Encounter ID Performer Location Encounter Start Date Encounter Closed Date Diagnosis/Indication Diagnosis SNOMED-CT Code Diagnosis ICD10 Code Diagnosis IMO Codes Diagnosis Note [id number] BALBIR HENDRICKSON MD [facility] [address] [phone] 07/05/2024 10:26:51 07/05/2024 11:54:36 Abnormal auditory perception 43877227 H93.299 Audiologic al evaluation results: Right ear: [...] Melvin Member ID Guarantor Name 07/05/2024 1 [place] [facility] Karen Spann [id number] Karen Og 07/05/2024 1 [facility] (O) Karen Og [id number] Karen M Og Notes Date Note Type [...] remedies for hearing loss. BALBIR HENDRICKSON MD [address] [place] [address], [phone] - [facility] 07/05/2024 11:53:35 OBGyn Episode No OBEpisode recorded.
== END 2025-05-29 12:28 | disposition home or self-care (01) ==
LOC: HO.HSM 11:49
PROVIDERS: PCP Student in an Organized Health Care Education/Training Program; Visit Provider Registered Nurse
DX: G40.909 Epilepsy, unspecified, not intractable, without status epilepticus (principal); F41.9 Anxiety disorder, unspecified; G43.909 Migraine, unspecified, not intractable, without status migrainosus; R25.1 Tremor, unspecified
CPT/HCPCS: 99214

== ENCOUNTER 2025-05-29 11:48 | Outpatient (REF) | payer MEDICAID, SELFPAY ==
--- OUTSIDE RECORDS SUMMARY | 2025-05-29 15:33 | XMS_ITS | Encounter Summary ---
Author Organization [email or web address] Address [address] [facility] [address] [place] [address] Care Team Providers Care Adobe Developer Name Role Phone Tammi Burgess MD Primary Care Pro vider Encounter Details Date Type Department Care Team (Late st Contact Info) Description 05/29/2025 Orders Only GENERIC EXTERNAL DATA DEPARTMENT Provider, [...] t he electric, gas, oil or water [employer] threatened to shut off services in your [...] 06/29/2025 9:30 AM EST Office Visit [facility] MED[facility] [address] [place] [address] Tammi Burgess MD [address] [place] [address] documented as of this encounter Procedures Procedure Name Priority Date/Time Associated Diagnosis Comments VALPROIC ACID Routine 05/29/2025 12:35 PM EST documented in this encounter Results * Valproic Acid Total (05/29/2025 12:35 PM EST) Valproate 97.8 50.0 - 100.0 mcg/mL [facility] 05/29/2025 12:3 5 PM EST 05/29/2025 12:47 PM EST us Generic External Data Provider LAB BLOOD ORDERAB LES Final Result [facility] [address] [place] [address] [phone] documented in this encounter Visit Diagnoses Not on filedocumented in this encounter Additional Health Concerns Assessment Noted Time PHQ-9 Depression Total Score: 8 12/27/19 25 3:12 PM EDT documented as of this encounter Care Teams Adobe Developer Relationship Specialty Start Date End Date Tammi Burgess MD [address] [place] [address] PCP - General Internal Medicine 04/13/23 documented as of this encounter
--- OUTSIDE RECORDS SUMMARY | 2025-05-29 15:33 | XMS_ITS | Encounter Summary ---
Author Organization [employer] Address [address] [facility] [address] [place] [address] Care Team Providers Care Lithopress Operator Name Role Phone Tammi Burgess MD Primary Care Pro vider Reason for Visit * Reason Comments Med Refill Encounter Details Date Type Department Care Team (Late st Contact Info) Description 08/11/2024 Refill [facility] MEDICINE [address] [place] [address] Tammi Burgess MD [address] [place], [place] [phone] Social History Tobacco Use Types Packs/Day Years [...] 9:30 AM EST Office Visit [facility] MEDICINE [address] [place] [address] Tammi Burgess MD [address] [place] [phone] documented as of this encounter Visit Diagnoses Not on filedocumented in this encounter Additional Health Concerns Assessment Noted Time PHQ-9 Depression Total Score: 5 10/20/19 24 10:39 AM EDT documented as of this encounter Care Teams Lithopress Operator Relationship Specialty Start Date End Date Tammi Burgess MD [address] [place] [address] PCP - General Internal Medicine 04/13/23 documented as of this encounter
--- OUTSIDE RECORDS SUMMARY | 2025-05-29 15:33 | XMS_ITS | Clinical Summary ---
Author Organization [employer] Address [address] [place] [address] [address] [place] [address] Care Team Providers Care Speech Clinician Name Role Phone Tammi Burgess MD Primary [...] SUPPER, AND AT BEDTIME 1680 mL 05/25/20 25 Active omeprazole (PriLOSEC) [address] capsuleIndication s:Epigastric pain TAKE 1 CAPSULE BY MOUTH TWICE DAILY, BEFORE BREAKFAST AND BEFORE SUPPER. DO NOT BREAK, CRUSH, DISSOLVE OR CHEW. 180 capsule 05/25/20 25 Active pregabalin (Lyrica) 25 MG capsule Take 1 capsule (25 mg) by mouth 2 times daily. 60 capsule 1 03/02/20 25 025 Discontinued clotrimazole (Lotrimin) 1 % [...] cancer: Never smoker Eye: 02/2023 WNL at [facility] Dental: up to date Hernia [...] Encounters Date Type Department Care Team Description 05/29/2025 Orders Only GENERIC EXTERNAL DATA DEPARTMENT Provider, Generic External Data 05/27/2025 Orders Only GENERIC EXTERNAL DATA DEPARTMENT Provider, Generic External Data 05/25/2025 Results Follow-Up [facility] [address] [place] [phone] Stephani Crystal RN Ova and Parasites, Strongyloides Antibody (IgG) 05/23/2025 Refill [facility] [address] [place] [phone] Tammi Eldridge MD Epigastric pain 05/19/2025 Telephone [facility] [address] [place] [phone] Tammi Burgess MD Medication Question 05/17/2025 Orders Only [facility] [address] [place] [address] Tammi Burgess MD Eosinophilia, unspecified type (Primary Dx) 05/17/2025 Orders Only GENERIC EXTERNAL DATA DEPARTMENT Provider, Generic External Data 05/03/[address] [address] Tammi Burgess MD 04/28/2025 10:20 AM EDT Office Visit [facility] [address] [address] Tammi Eldridge MD Epigastric pain 04/28/2025 Travel 04/17/2025 1:40 PM EDT [facility] [address] [address] Kristal San ANP Rash (Primary Dx) 04/17/2025 Travel 04/14/2025 Results Follow-Up [facility] [address] [place] [address] Shravan Dunne MD Leukocytes Stool Qualitative, Stool - Gastrointestinal panel, CBC auto differential, Comprehensive Metabolic Panel 04/12/2025 Orders Only [facility] [address] [place] [address] [place] [address] Shravan Dunne MD 04/11/2025 7:20 PM EDT Office Visit [facility] [address] [place] [address] Shravan Dunne MD Epigastric pain (Primary Dx) 04/11/2025 Travel 04/04/2025 Refill [facility] [address] [place], [place] [phone] aTmmi Burgess MD 03/10/2025 Refill [facility] [address] [place] [address] Tammi Burgess MD Low back pain associated with a spinal disorder other than radiculopathy or spinal stenosis 03/10/2025 Telephone [facility] [address] [place] [address] Tammi Burgess MD Results 03/09/2025 Results Follow-Up [facility] [address] [place] [address] [place] [address] Tammi Burgess MD BI Mammogram Screening Tomosynthesis Bilateral 03/02/2025 1:30 PM EDT Office Visit [address] [address] Tammi Burgess MD Hyperlipidemia, unspecified hyperlipidemia type [...] Description 06/29/2025 9:30 AM EST Office Visit [facility] [address] [place] [address] [phone] Tammi Burgess MD [address] [place], [place] [phone] Health Maintenance Due Date Last Done Comments [...] VALPROIC ACID Routine 05/29/2025 12:35 PM EST LIPASE Routine 05/27/2025 9:27 AM EDT AMYLASE Routine 05/27/2025 9:27 AM EDT C-REACTIVE PROTEIN Routine 05/27/2025 9: 27 AM EDT OVA AND PARASITES, CONC AND PERM SMEAR [...] caries associated with failed or defective dental mandaeism Full coverage crown needed for root canal-treated [...] Recently Relevant to Health Maintenance Results * Valproic Acid Total (05/29/2025 12:35 PM EST) Valproate 97.8 50.0 - 100.0 mcg/mL [facility] 05/29/2025 12:3 5 PM EST 05/29/2025 12:47 PM EST Generic External Data Provider LAB BLOOD ORDERAB LES Final Result Performing Organization Address [facility] de Phone Number [facility] [address] [place] [phone] * (ABNORMAL) C-reactive Protein (05/27/2025 9:27 AM EDT) C Reactive Protein 0.72(H) < or = 0.50 mg/dL [facility] 05/27/2025 9:27 AM EDT 05/27/2025 9:27 AM EDT Generic External Data Provider LAB BLOOD ORDERAB LES Final Result Performing Organization Address [facility] Number [facility] [address] [place] [phone] * Lipase (05/27/2025 9:27 AM EDT) Only the most recent of2 resultswithin the time period is included. Lipase 34 8 - 78 U/L [facility] 05/27/2025 9:27 AM EDT 05/27/2025 9:27 AM EDT Generic External Data Provider LAB BLOOD ORDERAB LES Final Result Performing Organization Address [facility] de Phone Number [facility] [address] [place] [phone] * Amylase (05/27/2025 9:27 AM EDT) Amylase 47 28 - 100 U/L [facility] 05/27/2025 9:27 AM EDT 05/27/2025 9:27 AM EDT us Generic External Data Provider LAB BLOOD ORDERAB LES Final Result Performing Organization Address [facility]/ZIP Co de Phone Number [facility] [address] [place] [phone] * Ova and Parasites (05/23/2025 3:48 PM EDT) Ova and Parasite Trichrome TNP [facility] Comment:DUPLICATE LEAT Stool Rectal contents / Unknown 05/23/2025 3:48 PM EDT 05/23/2025 3:49 PM EDT us Tammi Sorenson MD LAB MICROBIOLOGY - GENERAL ORDERABLES Final Result Performing Organization Address [facility] Co de Phone Number [facility] [address] [place] [phone] * Strongyloides Antibody (IgG) (05/18/2025 9:31 AM EDT) Strongyloides Antibody IgG NEGATIVE [facility] Comment:REFERENCE RANGE: NEG ATIVEStrongyloides stercoralis is a parasiticNematode found in tropical and subtropicalregions. Because of low larval densities infeces, stool examination is a relativelyinsensitive diagnostic test; antibody detectionoffers increased sensitivity. Patients withlatent infections who are immunosuppressed orreceiving immunosuppressive therapy are at riskof life- threatening hyperinfection. Significantcrossreactivity may be observed in otherhelminth infections.THIS TEST WAS PERFORMED AT:[employer]/[id number] [facility]ITALRICKIE WEBB [facility] [place] [phone] JOHNSTON MD,PHD,ESTHER Blood Venous blood specimen / Unknown 05/18/2025 9:31 AM EDT 05/18/2025 11:42 AM EDT us Tammi Sorenson MD LAB BLOOD ORDERAB LES Final Result Performing Organization Address [facility] Co de Phone Number [facility] [address] [place] [phone] * Slide Review (05/17/2025 7:46 AM EDT) Only the most recent of2 resultswithin the time period is included. Slide Review VERIFIED [facility] 05/17/2025 7:46 AM EDT 05/17/2025 7:50 AM EDT us Generic External Data Provider LAB BLOOD ORDERAB LES Final Result [facility] [address] [place] [phone] * (ABNORMAL) CBC auto differential (05/17/2025 7:46 AM EDT) Only the most recent of2 resultswithin the time period is included. White Blood Count 8.6 4.8 - 10.8 X10*3/uL [facility] Red Blood Count 4.11(L) 4.20 - 5.50 X10*6/uL [facility] Hemoglobin 12.8 12.0 - 16.0 g/dl [facility] Hematocrit 39.7 37.0 - 47.0 % [facility] Mean Corpuscular Volume 96.6 80.0 - 98.0 fL [facility] Mean Corpuscular Hemoglobin 31.1 27.0 - 33.0 pg [facility] Mean Corpuscular HGB Conc 32.2 31.0 - 35.0 g/dl [facility] Red Cell Distribution Width 14.6 11.0 - 16.0 % [facility] Platelet Count 166 160 - 400 X10*3/uL [facility] Mean Platelet Volume 9.8 9.4 - 12.3 fL [facility] Neutrophils Percent Auto 29.0(L) 45 - 73 % [facility] Imm Gran Pct Auto 0.2 0.0 - 0.4 % [facility] Lymphocytes Percent Auto 21.5 20 - 40 % [facility] Monocytes Percent Auto 7.5 2 - 11 % [facility] Eosinophils Percent Auto 41.2(H) 0 - 4 % [facility] Basophils Percent Auto 0.6 0 - 2 % [facility] NRBC Pct Auto 0.0 0.0 - 0.2 /100WBC [facility] Neutrophils Absolute Auto 2.5 2.0 - 8.3 x10*3/uL [facility] Imm Gran Abs Auto 0.02 0.00 - 0.03 X10*3/uL [facility] Lymphocytes Absolute Auto 1.9 1.2 - 4.9 X10*3/uL [facility] Monocytes Absolute Auto 0.7 0.1 - 1.2 X10*3/uL [facility] Eosinophils Absolute Auto 3.6(H) 0.0 - 0.4 X10*3/uL [facility] Basophils Absolute Auto 0.1 0.0 - 0.2 X10*3/uL [facility] NRBC Abs Auto 0.000 0.0 - 0.012 X10*3/uL [facility] 05/17/2025 7:46 AM EDT 05/17/2025 7:50 AM EDT us Generic External Data Provider LAB BLOOD ORDERAB LES Edited Result - Final Performing Organization Address [facility] Co de Phone Number [facility] [address] [place] [phone] * Magnesium (05/17/2025 7:46 AM EDT) Magnesium 2.0 1.6 - 2.6 mg/dL [facility] 05/17/2025 7:46 AM EDT 05/17/2025 7:50 AM EDT Generic External Data Provider LAB BLOOD ORDERAB LES Final Result Performing Organization Address [facility] Co de Phone Number [facility] [address] [place] [phone] * Hepatic Function Panel (05/17/2025 7:46 AM EDT) Bilirubin, Total 0.4 0.0 - 1.0 mg/dL [facility] Bilirubin, Direct 0.1 0.0 - 0.5 mg/dL [facility] Aspartate Amino Transferase 28 5 - 31 U/L [facility] Alanine Aminotransferase 29 0 - 31 U/L [facility] Total Protein 7.1 6.5 - 8.0 g/dL [facility] Albumin Level 3.8 3.5 - 5.0 g/dL [facility] Alkaline Phosphatase 80 39 - 117 U/L [facility] 05/17/2025 7:46 AM EDT 05/17/2025 7:50 AM EDT us Generic External Data Provider LAB BLOOD ORDERAB LES Final Result [facility] [address] [place] [phone] * Basic Metabolic Panel (05/17/2025 7:46 AM EDT) Pathologist [facility] Sodium 142 135 - 145 mmol/L [facility] Potassium 4.6 3.3 - 5.1 mmol/L [facility] Chloride 107 96 - 108 mmol/L [facility] Carbon Dioxide 28 22 - 29 mmol/L [facility] Anion Gap 12 12 - 20 [facility] Urea Nitrogen (BUN) 15 9 - 16 mg/dL [facility] Creatinine, Serum 0.75 0.5 - 1.4 mg/dL [facility] Creatinine Clr Calc Pharmacy 77.1 [facility] Comment:Provided height and weight: 165.1 cm,65.771 kg.eGFR (calculated from the MDRD study equation) and eCrCl(calculated from the Cockcroft-Gault equation) are based ondifferent parameters and may not yield comparable results.If eCrCl result is absurd, please check patient'sheight/weight. Estimated Glomerular Filt Rate >60 [facility] Comment:Chronic Kidney Disea se: Estimated GFR < 60 mL/min/1.12u3Gewsav Kidney Disease: Estimated GFR < 15 mL/min/1.73m2 Glucose 86 60 - 115 mg/dL [facility] Calcium 9.2 8.4 - 10.2 mg/dL [facility] 05/17/2025 7:46 AM EDT 05/17/2025 7:50 AM EDT us Generic External Data Provider LAB BLOOD ORDERAB LES Final Result Performing Organization Address City/State/[facility] Co de Phone Number [facility] [address] [place] [phone] * FL Esophagus Barium Swallow w/Air (04/18/2025 9:40 AM EDT) Anatomical Region Laterality Modality Head, Neck Radiographic Rachel ging 04/18/2025 9:40 AM EDT Narrative 04/18/2025 11:37 AM EDT [place] [address] Fluoroscopy Report Signed Patient: Karen Og MR#: [id number] 4 : 1970 Acct:[id number] Age/Sex: 54 / F ADM Date: 04/18/25 Loc: JAJA Attending Dr: Tammi Sorenson MD Ordering Physician: Tammi Burgess MD Date of Service: 04/18/25 Procedure(s): FL barium swallow with air Accession Number(s): [id number] cc: Tammi Burgess MD Reason for Exam: [...] 04/18/25 1134 DD/ 0940 TD/TT: 04/18/25 0949 [employer] Internship: Procedure Note Donotuseinterpreter, Image - 04/18/2025 [place] [address] Fluoroscopy Report Signed Patient: Karen Og [facility]#: [id number] 4 : 1970Acct:[id number] Age/Sex: 54 / FADM Date: 04/18/25 Loc: HO.XRAY Attending Dr: Tammi Sorenson MD Ordering Physician: Tammi Burgess MD Date of Service: 04/18/25 Procedure(s): FL barium swallow with air Accession Number(s): [id number] cc: Tammi Burgess MD Reason for Exam: [...] 04/18/25 1134 DD/ 0940 TD/TT: 04/18/25 0949 [employer]vertising Internship: Tammi Sorenson MD IMG FLUOROSCOPY P ROCEDURES Final Result * Leukocytes Stool Qualitative (04/13/2025 10:00 AM EDT) Leukocytes Stool Qualitative NEGATIVE NEGATIVE [facility] Stool 04/13/2025 10:0 0 AM EDT 04/13/2025 4:48 PM EDT us Shravan Dunne MD LAB BODY FLUIDS AND STOOLS ORDER JEROMY Final Result [facility] [address] [place] [phone] * Stool - Gastrointestinal panel (04/13/2025 10:00 AM EDT) Campylobacter Not Detected Not Detect. [facility] Plesiomonas shigelloides Not Detected Not Detect. [facility] Salmonella Not Detected Not Detect. [facility] Vibrio Not Detected Not Detect. [facility] Vibrio cholerae Not Detected Not Detect. [facility] YERSINIA ENTEROCOLITICA Not Detected Not Detect. [facility] Enteroaggregative E. coli (EAEC) Not Detected Not Detect. [facility] Enteropathogenic E. coli (EPEC) Not Detected Not Detect. [facility] Enterotoxigenic E. coli (ETEC) lt/st Not Detected Not Detect. [facility] Shiga-like toxin-producing E. coli (STEC) stx1/stx2 Not Detected Not Detect. [facility] E coli O157 Not applicable Not Detect. [facility] Comment:E. coli containing t he O157 antigen are a subset ofShiga-like toxin- producing E. coli (STEC). Shigella/Enteroinvasive E. coli (EIEC) Not Detected Not Detect. [facility] Cryptosporidium Not Detected Not Detect. [facility] Cyclospora cayetanensis Not Detected Not Detect. [facility] Entamoeba histolytica Not Detected Not Detect. [facility] Giardia lamblia Not Detected Not Detect. [facility] Adenovirus F 40/41 Not Detected Not Detect. [facility] Astrovirus Not Detected Not Detect. [facility] Norovirus GI/GII Not Detected Not Detect. [facility] Rotavirus A Not Detected Not Detect. [facility] Sapovirus Not Detected Not Detect. [facility] Comment: All results must be [...] assay is performed by Multiplexed PCR, utilizing [employer] Array. Stool Rectal contents / Unknown 04/13/2025 10:00 AM EDT 04/13/2025 4:48 PM EDT us Shravan Dunne MD LAB MICROBIOLOGY - GENERAL ORDER JEROMY Final Result [facility] [address] [place] [phone] * Helicobacter pylori??Antigen, EIA, Stool (04/13/2025 10:00 AM EDT) H pylori Ag Stool SEE NOTE [facility] Comment:HELICOBACTER PYLORI AG, EIA, STOOL Micro Number: [id number] Test Status: Final Specimen Source: Stool Specimen Quality: Adequate H.pylori Ag: Not Detected Antimicrobials, proton pump inhibitors, and bismuth preparations inhibit H. pylori and ingestion up to two weeks prior to testing may cause false negative results. If clinically indicated the test should be repeated on a new specimen obtained two weeks after discontinuing treatment. Reference Range: Not DetectedTHIS TEST WAS PERFORMED AT:[facility] [place] [phone] BLANCAS MD Stool Rectal contents / Unknown 04/13/2025 10:00 AM EDT 04/13/2025 4:48 PM EDT Shravan Dunne MD LAB BODY FLUIDS AND STOOLS ORDER JEROMY Final Result [facility] [address] [place] [phone] * (ABNORMAL) Comprehensive Metabolic Panel (04/12/2025 10:09 AM EDT) Sodium 141 135 - 145 mmol/L [facility] Potassium 4.5 3.3 - 5.1 mmol/L [facility] Chloride 104 96 - 108 mmol/L [facility] Carbon Dioxide 30(H) 22 - 29 mmol/L [facility] Anion Gap 12 12 - 20 [facility] Urea Nitrogen (BUN) 15 9 - 16 mg/dL [facility] Creatinine, Serum 0.69 0.5 - 1.4 mg/dL [facility] Estimated Glomerular Filt Rate >60 [facility] Comment:Chronic Kidney Disea se: Estimated GFR < 60 mL/min/1.96z2Ptqbdg Kidney Disease: Estimated GFR < 15 mL/min/1.73m2 Glucose 93 60 - 115 mg/dL [facility] Calcium 9.2 8.4 - 10.2 mg/dL [facility] Bilirubin, Total 0.3 0.0 - 1.0 mg/dL [facility] Aspartate Amino Transferase 23 5 - 31 U/L [facility] Alanine Aminotransferase 11 0 - 31 U/L [facility] Total Protein 6.9 6.5 - 8.0 g/dL [facility] Albumin Level 3.8 3.5 - 5.0 g/dL [facility] Alkaline Phosphatase 66 39 - 117 U/L [facility] Blood Venous blood specimen / Unknown 04/12/2025 10:09 AM EDT 04/12/2025 11:14 AM EDT Shravan Dunne MD LAB BLOOD ORDERABLES Final Resul t [facility] [address] [place] [phone] * US Pelvis Transvaginal (02/27/2025 4:30 PM EDT) Anatomical Region Laterality Modality Pelvis Ultrasound 02/27/2025 4:30 PM EDT Narrative 02/27/2025 5:46 PM EDT [address] [address] Ultrasound Report Signed Patient: Karen Og MR#: [id number] [birth year] : 1970 Acct:[id number] Age/Sex: 54 / F ADM Date: 02/27/25 Loc: .US Attending Dr: Juan Espinoza MD Ordering Physician: Juan Espinoza MD Date of Service: 02/27/25 Procedure(s): US pelvic and transvaginal Accession Number(s): [id number] cc: Tammi Burgess MD; Juan Espinoza MD [...] 02/27/25 1743 DD/ 1630 TD/TT: 02/27/25 1645 Advertising Internship: Procedure Note Donotuseinterpreter, Image - 02/27/2025 [place] [address] Ultrasound Report Signed Patient: Karen Og MMR#: [id number] [birth year] : 1970Acct:[id number] Age/Sex: 54 / FADM Date: 02/27/25 Loc: .US Attending Dr: Juan Espinoza MD Ordering Physician: Juan Espinoza MD Date of Service: 02/27/25 Procedure(s): US pelvic and transvaginal Accession Number(s): [id number] cc: Tammi Burgess MD; Juan Espinoza MD [...] 02/27/25 1743 DD/ 1630 TD/TT: 02/27/25 1645 Advertising Internship: us [facility] External Provider IMG US PROCEDURES Final Result * BI Mammogram Screening Tomosynthesis Bilateral (02/27/2025 2:00 PM EDT) Anatomical Region Laterality Modality Breast Bilateral Mammography 02/27/2025 2:00 PM EDT Narrative 03/09/2025 8:24 AM EDT [facility] [address] [place] [address] Mammography Report Signed Patient: Karen Og MR#: [id number] 4 : 1970 Acct:[id number] Age/Sex: 54 / F ADM Date: 02/27/25 Loc: MAMMO Attending Dr: Tammi Sorenson MD Ordering Physician: Tammi Burgess MD Re sults: 1Negative Date of Service: 02/27/25 Follow Up: 1 Year From Orig inal Mammogram Procedure(s): MM tomosynthesis screening BI Accession Number(s): [id number] cc: Tammi Burgess MD EXAMINATION: MM SCREENING [...] 03/09/25 0821 DD/ 1400 TD/TT: 02/27/25 1412 Advertising Internship: Procedure Note Donotuseinterpreter, Image - 03/09/2025 [place] [facility] [address] [place], [place] [address] Mammography Report Signed Patient: Karen Og MMR#: [id number] 4 : 1970Acct:[id number] Age/Sex: 54 / FADM Date: 02/27/25 Loc: MAMMO Attending Dr: Tammi Sorenson MD Ordering Physician: Tammi Burgess sults: 1Negative Date of Service: 02/27/25Follow Up: 1 Year From Orig ina Mammogram Procedure(s): MM tomosynthesis screening BI Accession Number(s): [id number] cc: Tammi Burgess MD EXAMINATION: MM SCREENING [...] for their next mammogram. Electronically signed by: Mray Schultz DO 03/09/2025 08:21 AM EDT Dictated By: Mary Schultz DO Signed By: <Electronically signed by Mary Schultz DO in OV> 03/09/25 0821 DD/ 1400 TD/TT: 02/27/25 1412 Advertising Internship: Tammi Sorenson MD IMG BI PROCEDURES Final Result * Hepatitis C Antibody with Reflex to HCV, RNA, Quantitative, Real-Time PCR (02/06/2025 10:04 AM EDT) Hepatitis C Antibody Nonreactive Nonreactive [facility] Comment:Antibodies to HCV no t detected; does not exclude early acuteHCV infection. Blood Venous blood specimen / Unknown 02/06/2025 10:04 AM EDT 02/06/2025 11:11 AM EDT us Tammi Sorenson MD LAB BLOOD ORDERAB LES Final Result Performing Organization Address [facility]/ZIP Co de Phone Number [facility] [address] [place] [phone] * HIV-1/2 Antigen and Antibodies, Fourth Generation, with Reflexes (02/06/2025 10:04 AM EDT) HIV AB/AG Nonreactive Nonreactive [facility] Comment:HIV-1 p24 Ag and/or HIV-1/HIV-2 Ab not detected.A test result that is nonreactive does not exclude thepossibility of exposure to or infection with HIV-1 and/orHIV-2. Nonreactive results in this assay for individualswith prior exposure to HIV-1 and/or HIV-2 may be due toantigen and antibody levels that are below the limit ofdetection of this assay.The [employer] HIV Ag/Ab Combo assay result andsupplemental assay [...] Organization Address [facility]/ZIP Co de Phone Number [facility] [address] [place] [phone] * Hemoglobin A1c (02/06/2025 10:04 AM EDT) Hemoglobin A1c 5.5 <6.0 % [facility] Comment:Hemoglobin A1C Refer ence Range Adults: 4.8 - 6.0 % Non diabetic: < 6.0 % Goal: < 7.0 %Additional Action Suggested: > 8.0 %Note: Hemoglobin A1c results are invalid for patients with abnormal amounts of HbF. Blood transfusions may impact the HbA1c concentration in the patient sample. Estimated Average Glucose 111 mg/dL [facility] Comment:eAG = Estimated ave rage glucose which is %A1C expressed asaverage glucose, using the formula of the I8M-GxbjjrhHavbscp Glucose study (ADAG), Diabetes Care, Vol.31,#8,Feb. 2007 Blood Venous blood specimen / Unknown 02/06/2025 10:04 AM EDT 02/06/2025 11:11 AM EDT Tammi Sorenson MD LAB BLOOD ORDERAB LES Final Result [facility] [address] [place] [phone] * Hm Colonoscopy (05/28/2022 1:55 PM EDT) Historical Provider HEALTH MAINTENANCE Final Result * HPV E6/E7 RFLX JACOB 16 18/45 (08/15/2021 1:40 PM EST) Pathologist [facility] HPV 16 RNA TNP [facility] HPV 18/45 RNA TNP [facility] HPV E6 E7 ADD TNP [facility] HPV mRNA E6/E7 rflx Not Detected Not Detected [facility] Comment: Methodology: Chick Sexer-Mediated Amplification This assay detects E6/E7 viral messenger RNA (mRNA) from 14 high-risk HPV types (16,18,31,33,35,39,45,51,52,56,58,59,66,68). The analytical performance characteristics of this assay have been determined by [employer]. The modifications have not been cleared or approved by the FDA. This assay has been validated pursuant to the CLIA regulations and is used for clinical purposes. For additional information, please refer to http://education.Fluidinfo/faq/NZO441s3 (This link if provided for information/ educational purposes only.) THIS TEST WAS PERFORMED AT: [facility] [address] [place] [address],[place] [address] AMY BLANCAS MD 08/15/2021 1:40 PM EST Historical Provider HISTORICAL/NON ORDERABLE LABS Final Result Performing Organization Address [facility] de Phone Number [facility] [address] * THINPREP PAP (01/11/2021 11:51 AM [...] along with historic and current clinical information. Stacker Straightener : SEE COMMENT [facility] Comment: GSG, CT(ASCP) CT screening location: [place] [address] Interpretation/R esult: Negative for intraepithelial lesion or malignancy. [facility] LMP: NONE GIVEN [facility] Prev. BX: NONE GIVEN [facility] Prev. PAP: NONE GIVEN [facility] SOURCE: None given [facility] Statement Of Adequacy: SEE COMMENT [facility] Comment: Satisfactory for evaluation. Endocervical/transformation zone component present. 01/11/2021 11:5 1 AM EDT Historical Provider LAB PATHOLOGY ORDERABLES Final Result Performing Organization Address [facility] de Phone Number [facility] [address] from Last 3 Months or Most Recently Relevant to Health Maintenance Insurance [address] [place], [place] [address]HERMEL DELOR C3 [place] STAND ADULT DENTAL - HSN FULL (MEDICAID) Care Teams Speech Clinician Relationship Specialty Start Date End Date Tammi Burgess MD [address] [place] [address] PCP - General Internal Medicine 04/13/23
--- OUTSIDE RECORDS SUMMARY | 2025-05-29 15:34 | XMS_ITS | Encounter Summary ---
Author Organization [employer] Address 75 [facility] 7t [place] [address] Care Team Providers Care Ruffling Hemmer Automatic Name Role Phone Tammi Burgess MD Primary Care Pro vider Encounter Details Date Type Department Care Team (Late st Contact Info) Description 05/27/2025 Orders Only GENERIC EXTERNAL DATA DEPARTMENT [...] t he electric, gas, oil or water [employer] threatened to shut off services in your [...] 06/29/2025 9:30 AM EST Office Visit [facility] 230 [place], [place] [phone] Tammi Burgess MD 230 [place], [place] [phone] documented as of this encounter Procedures Procedure Name Priority Date/Time Associated Diagnosis Comments C-REACTIVE PROTEIN Routine 05/27/2025 9: 27 AM EDT LIPASE Routine 05/27/2025 9:27 AM EDT AMYLASE Routine 05/27/2025 9:27 AM EDT documented in this encounter Results * Lipase (05/27/2025 9:27 AM EDT) Lipase 34 8 - 78 U/L [facility] 05/27/2025 9:27 AM EDT 05/27/2025 9:27 AM EDT us Generic External Data Provider LAB BLOOD ORDERAB LES Final Result [facility] [address] [place] [phone] * Amylase (05/27/2025 9:27 AM EDT) Amylase 47 28 - 100 U/L [facility] 05/27/2025 9:27 AM EDT 05/27/2025 9:27 AM EDT us Generic External Data Provider LAB BLOOD ORDERAB LES Final Result Performing Organization Address [facility] Co de Phone Number [facility] [address] [place] [phone] * (ABNORMAL) C-reactive Protein (05/27/2025 9:27 AM EDT) C Reactive Protein 0.72(H) < or = 0.50 mg/dL [facility] 05/27/2025 9:27 AM EDT 05/27/2025 9:27 AM EDT Generic External Data Provider LAB BLOOD ORDERAB LES Final Result Performing Organization Address [facility] de Phone Number [facility] [address] [place] [phone] documented in this encounter Visit Diagnoses Not on filedocumented in this encounter Additional Health Concerns Assessment Noted Time PHQ-9 Depression Total Score: 8 12/27/19 25 3:12 PM EDT documented as of this encounter Care Teams Ruffling Hemmer Automatic Relationship Specialty Start Date End Date Tammi Burgess MD [address] [place] [phone] PCP - General Internal Medicine 04/13/23 documented as of this encounter
--- OUTSIDE RECORDS SUMMARY | 2025-05-29 15:34 | XMS_ITS | Encounter Summary ---
Author Organization [employer] Address 75 [facility] 7t [place] [address] Care Team Providers Care Optometrist Owner Name Role Phone Tammi Burgess MD Primary Care Pro vider Encounter Details Date Type Department Care Team (Latest Contact Info) Description 04/14/2025 Results Follow-Up [facility] 230 [place] [address] Shravan Dunne MD 230 [place] [address] Leukocytes Stool Qualitative, Stool - Gastrointestinal panel, [...] Description 06/29/2025 9:30 AM EST Office Visit [facility] [address] [place] [phone] Tammi Burgess MD [address] [place] [phone] documented as of this encounter Visit Diagnoses Not on filedocumented in this encounter Additional Health Concerns Assessment Noted Time PHQ-9 Depression Total Score: 8 12/27/19 25 3:12 PM EDT documented as of this encounter Care Teams Optometrist Owner Relationship Specialty Start Date End Date Tammi Burgess MD [address] [place] [phone] PCP - General Internal Medicine 04/13/23 documented as of this encounter
--- OUTSIDE RECORDS SUMMARY | 2025-05-29 15:34 | XMS_ITS | Encounter Summary ---
Author Organization [employer] Address 75 [facility] 7t [place] [address] Care Team Providers Care Shop Tech Name Role Phone Tammi Burgess MD Primary Care Pro vider Encounter Details Date Type Department Care Team ([facility] st Contact Info) Description 07/18/2024 Orders Only [facility] 230 [place] [address] ProviderChata MD Social History Tobacco Use Types [...] 1:55 PM EST Pelvic US ordered by [facility]. Patient to fu results with [facility]NER (Dr Espinoza). documented in this encounter Plan of Treatment Upcoming Encounters Date Type Department Care Team (Late st Contact Info) Description 06/29/2025 9:30 AM EST Office Visit [facility] [address] [place] [phone] Tammi Burgess MD 230 [place] [address] documented as of this encounter Procedures Procedure [...] PM EST Narrative 08/09/2024 10:56 AM EST [address] [address] Magnetic Resonance Report Signed Patient: Karen Og MR#: [id number] 4 : 1970 Acct:[id number] Age/Sex: 54 / F ADM Date: 08/07/24 Loc: HO.MRI Attending Dr: Keyon Bowles MD Ordering Physician: Keyon Bowles MD Date of Service: 08/07/24 Procedure(s): MR knee LT wo con Accession Number(s): [id number] cc: Tammi Burgess MD; Keyon Bowles MD [...] 08/09/24 1053 DD/ 1458 TD/TT: 08/07/24 1507 Transmitter Supervisor: Procedure Note Donotuseinterpreter, Image - 08/09/[address] [address] Magnetic Resonance Report Signed Patient: Karen Og MMR#: [id number] 4 : 1970Acct:[id number] Age/Sex: 54 / FADM Date: 08/07/24 Loc: HO.MRI Attending Dr: Keyon Bowles MD Ordering Physician: Keyon Bowles MD Date of Service: 08/07/24 Procedure(s): MR knee LT wo con Accession Number(s): [id number] cc: Tammi Burgess MD; Keyon Bowles MD [...] 08/09/24 1053 DD/ 1458 TD/TT: 08/07/24 1507 Transmitter Supervisor: us [facility] External Provider IMG MRI PROCEDURES Final Result * US Pelvis Transvaginal (08/02/2024 4:26 PM EST) Anatomical Region Laterality Modality Pelvis Ultrasound 08/02/2024 4:26 PM EST Narrative 08/02/2024 4:27 PM EST [place] [address] Ultrasound Report Signed Patient: Karen Og MR#: [id number] 4 : 1970 Acct:[id number] Age/Sex: 54 / F ADM Date: 08/01/24 Loc: .US Attending Dr: Juan Espinoza MD Ordering Physician: Juan Espinoza MD Date of Service: 08/01/24 Procedure(s): US pelvic and transvaginal Accession Number(s): [id number] cc: Tammi Burgess MD; Juan Espinoza MD CLINICAL HISTORY: D25.9 - Leiomyoma of uterus, unspecified US pelvis transabdominal and transvaginal Comparison: US/MS/SR - US PELVIC AND TRANSVAGINAL - 09/28/23 [...] 08/02/24 1626 DD/ 1626 TD/TT: 08/02/24 162 Transmitter Supervisor: Procedure Note Donotuseinterpreter, Image - 08/02/2024 [place] [address] Ultrasound Report Signed Patient: Karen Og MMR#: [id number] 4 : 1970Acct:[id number] Age/Sex: 54 / FADM Date: 08/01/24 Loc: HO.US Attending Dr: Juan Espinoza MD Ordering Physician: Juan Espinoza MD Date of Service: 08/01/24 Procedure(s): US pelvic and transvaginal Accession Number(s): [id number] cc: Tammi Burgess MD; Juan Espinoza MD CLINICAL HISTORY: D25.9 - Leiomyoma of uterus, unspecified US pelvis transabdominal and transvaginal Comparison: US/MS/SR - US PELVIC AND TRANSVAGINAL - 09/28/23 [...] OV> 08/02/241625 DD/ 1626 TD/TT: 08/02/24 162 Transmitter Supervisor: [facility] External Provider IMG US PROCEDURES Final Result * Hm Colonoscopy (05/28/2022 1:55 PM EDT) Historical Provider HEALTH MAINTENANCE Final Result documented in this encounter Visit Diagnoses Not on filedocumented in this encounter Additional Health Concerns Assessment Noted Time PHQ-9 Depression Total Score: 5 10/20/19 24 10:39 AM EDT documented as of this encounter Care Teams Shop Tech Relationship Specialty Start Date End Date Tammi Burgess MD [address] [place] [phone] PCP - General Internal Medicine 04/13/23 documented as of this encounter
--- OUTSIDE RECORDS SUMMARY | 2025-05-29 15:34 | XMS_ITS | Encounter Summary ---
Author Organization [employer] Address 75 [facility] 7t [place] [address] Care Team Providers Care Drafter Geological Name Role Phone Tammi Burgess MD Primary Care Pro vider Reason for Visit * Reason Comments Med Refill Encounter Details Date Type Department Care Team ([facility] st Contact Info) Description 05/23/[address] [facility] [address] [place], [place] [phone] Tammi Eldridge MD 230 [place], [place] [phone] Epigastric pain Social History Tobacco Use Types [...] EST Office Visit [facility] [address] [place] [address] Tammi Burgess MD [address] [place] [address] documented as of this encounter Visit Diagnoses Diagnosis Epigastric pain Abdominal pain, epigastric documented in this encounter Additional Health Concerns Assessment Noted Time PHQ-9 Depression Total Score: 8 12/27/19 25 3:12 PM EDT documented as of this encounter Care Teams Drafter Geological Relationship Specialty Start Date End Date Tammi Burgess MD [address] [place] [phone] PCP - General Internal Medicine 04/13/23 documented as of this encounter
--- OUTSIDE RECORDS SUMMARY | 2025-05-29 15:34 | XMS_ITS | Encounter Summary ---
Author Organization [employer] Address [address] [place] [address] 7 [place] [address] Care Team Providers Care Mandarin Chinese Teacher Name Role Phone Charito Lawrence Yue [facility] Primary Care Provider Tammi Downs MD Primary Care Pro vider Encounter Details Date Type Department Care Team (Late st Contact Info) Description 03/31/2023 Abstract [facility] ADULT DENTAL [address] [place] [address] Jamey Hussein, DMD [address] [place] [address] Social History Tobacco Use Types Packs/Day Years [...] 9:30 AM EST Office Visit [facility] MEDICINE [address] [place] [address] Tammi Burgess MD 230 [place] [address] documented as of this encounter Visit Diagnoses Not on filedocumented in this encounter Care Teams Mandarin Chinese Teacher Relationship Specialty Start Date End Date Charito Lawrence FNP PCP - General Family Medicine 05/17/21 04/12/23 Tammi Burgess MD [address] [place] [phone] PCP - General Internal Medicine 04/13/23 documented as of this encounter
--- OUTSIDE RECORDS SUMMARY | 2025-05-29 15:34 | XMS_ITS | Encounter Summary ---
Author Organization [employer] Address [address] [place] [address] 7 [place] [address] Care Team Providers Care Supervisor Painting Shipyard Name Role Phone Tammi Burgess MD Primary Care Pro vider Reason for Referral * Consultation (Routine) - Closed Specialty Diagnoses / Procedures Referred By Contac t Referred To Contact Orthopaedic Surgery Diagnoses Knee pain, unspecified chronicity, unspecified laterality Tammi Burgess MD [address] [place] [address] Phone: tel: fax: [facility] [address] [place] [address] Phone: tel: Referral ID Status Reason Start Date Expiration Date V isits Requested Visits Authorized [id number] Closed Specialty Services Required 11/24/2024 11/24/2025 6 6 Encounter Details Date Type Department Care Team (Late st Contact Info) Description 12/07/2024 Orders Only [facility] [address] [place] [phone] Tammi Burgess MD [address] [place], [place] [phone] Knee pain, unspecified chronicity, unspecified laterality (Primary [...] Description 06/29/2025 9:30 AM EST Office Visit [facility] [address] [place] [address] Tammi Burgess MD 230 [place] [address] Scheduled Referrals Name Type Priority Associated Diagnoses [...] documented as of this encounter Care Teams Supervisor Painting Shipyard Relationship Specialty Start Date End Date Tammi Burgess MD [address] [place] [phone] PCP - General Internal Medicine 04/13/23 documented as of this encounter
--- OUTSIDE RECORDS SUMMARY | 2025-05-29 15:34 | XMS_ITS | Encounter Summary ---
Author Organization [employer] [facility] Address [address] [place] [address] 7 [place] [address] Care Team Providers Care Mold Stamper Name Role Phone Charito Lawrence Primary Care Provider Tammi Downs MD Primary Care Pro vider Encounter Details Date Type Department Care Team (Latest Contact Info) Description 07/29/2018 Abstract [facility] CONVERSIONS Dental, Provider, DDS Social [...] 06/29/2025 9:30 AM EST Office Visit [facility] MEDICINE [address] [place] [address] Tammi Burgess MD [address] [place] [address] documented as of this encounter Visit Diagnoses Not on filedocumented in this encounter Care Teams Mold Stamper Relationship Specialty Start Date End Date Charito Lawrence FNP PCP - General Family Medicine 05/17/21 04/12/23 Tammi Burgess MD 230 [place], [place] [phone] PCP - General Internal Medicine 04/13/23 documented as of this encounter
--- OUTSIDE RECORDS SUMMARY | 2025-05-29 15:34 | XMS_ITS | Encounter Summary ---
Author Organization [employer] Address 75 [facility] 7t [place] [address] Care Team Providers Care Distribution Transformer Assembler Name Role Phone Tammi Burgess MD Primary Care Pro vider Encounter Details Date Type Department Care Team (Late st Contact Info) Description 08/06/2023 Orders Only [facility] MEDICINE 230 [place], [place] [phone] Judy Prieto MD 230 [place], [place] [phone] Acute pain of right knee (Primary Dx); [...] 06/29/2025 9:30 AM EST Office Visit [facility] MEDICINE [address] [place] [address] Tammi Burgess MD 230 [place] [address] documented as of this encounter Visit Diagnoses Diagnosis Acute pain of right knee- Primary Effusion of right knee Dislocation of right knee with medial meniscus tear, initial encounter documented in this encounter Additional Health Concerns Assessment Noted Time PHQ-9 Depression Total Score: 0 07/23/20 11:15 AM EST documented as of this encounter Care Teams Distribution Transformer Assembler Relationship Specialty Start Date End Date Tammi Burgess MD [address] [place] [address] PCP - General Internal Medicine 04/13/23 documented as of this encounter
--- OUTSIDE RECORDS SUMMARY | 2025-05-29 15:34 | XMS_ITS | Encounter Summary ---
Author Organization [employer] Address 75 [facility] 7t [place] [address] Care Team Providers Care Doggy Daycare Activities Director Name Role Phone Tammi Burgess MD Primary Care Pro vider Reason for Visit * Reason Onset Date Comments Lab Orders 05/25/2025 Encounter Details Date Type Department Care Team (Latest Contact Info) Description 05/25/2025 Results Follow-Up [facility] [address] [place] [address] Stephani Crystal RN Ova and Parasites, Strongyloides [...] RN - 05/25/2025 9:21 AM EDT Called [facility], spoke with Elena Davis. The [...] Visit [facility] [address] [place] [address] Tammi Burgess MD 230 [place] [address] documented as of this encounter Visit Diagnoses Not on filedocumented in this encounter Additional Health Concerns Assessment Noted Time PHQ-9 Depression Total Score: 8 12/27/19 25 3:12 PM EDT documented as of this encounter Care Teams Doggy Daycare Activities Director Relationship Specialty Start Date End Date Tammi Burgess MD [address] [place] [phone] PCP - General Internal Medicine 04/13/23 documented as of this encounter
--- OUTSIDE RECORDS SUMMARY | 2025-05-29 15:34 | XMS_ITS | Encounter Summary ---
Author Organization [employer] Address [address] [place] [address] 7 [place] [address] Care Team Providers Care Administrative Support Assoc Name Role Phone Tammi Burgess MD Primary Care Pro vider Reason for Visit * Reason Onset Date Comments Nurse Triage 07/16/2023 Encounter Details Date Type Department Care Team ([facility] st Contact Info) Description 07/16/2023 Telephone [facility] [address] [place] [address] Tammi Burgess MD [address] [place] [address] Nurse Triage Social History Tobacco Use Types [...] 07/16/2023 4:32 PM EST Triage call with [place] Automatic [employer] Machine Mechanic ID [id number] Pt requests for Pt to speak for Pt. Pt has acute right knee pain. Pt has been seen in [facility] 07/09/23. Pt was prescribed tylenol 500mg, brace, voltaren gel and xrays. Xrays have been done. Pt isasking what xray results are financial writer advised that there is evidence of [...] Description 06/29/2025 9:30 AM EST Office Visit [facility] [address] [place] [address] Tammi Burgess MD 230 [place], [place] [phone] documented as of this encounter Visit Diagnoses Not on filedocumented in this encounter Care Teams Administrative Support Assoc Relationship Specialty Start Date End Date Tammi Burgess MD [address] [place] [phone] PCP - General Internal Medicine 04/13/23 documented as of this encounter
[2025-06-03 02:49] LABS: Calprotectin, Fecal 115 mcg/g
== END 2025-05-29 11:49 | disposition home or self-care (01) ==
LOC: HO.LNP 11:48
PROVIDERS: Nurse Practitioner Family; PCP Student in an Organized Health Care Education/Training Program; Visit Provider Registered Nurse
DX: G40.909 Epilepsy, unspecified, not intractable, without status epilepticus (principal); F41.9 Anxiety disorder, unspecified; G43.909 Migraine, unspecified, not intractable, without status migrainosus; R25.1 Tremor, unspecified; K21.9 Gastro-esophageal reflux disease without esophagitis; R10.13 Epigastric pain; Z79.899 Other long term (current) drug therapy
CPT/HCPCS: 83993; 87338; 99212

== ENCOUNTER 2025-05-29 12:36 | Outpatient (REF) | payer MEDICAID, SELFPAY | END 2025-05-29 12:37 | disposition home or self-care (01) | LOC: HO.LAB 12:36 | PROVIDERS: PCP Student in an Organized Health Care Education/Training Program; Visit Provider Registered Nurse | DX: R10.13 Epigastric pain (principal); K21.9 Gastro-esophageal reflux disease without esophagitis; R19.7 Diarrhea, unspecified; R25.1 Tremor, unspecified; G40.909 Epilepsy, unspecified, not intractable, without status epilepticus | CPT/HCPCS: 36415; 80164 ==

== ENCOUNTER 2025-06-06 10:15 | Day surgery (SDC) | payer MEDICAID, SELFPAY ==
--- OUTSIDE RECORDS SUMMARY | 2025-05-31 12:23 | XMS_ITS | Clinical Summary ---
Author Organization [facility] Address [address] [place] [address] [place] [phone] Phone Care Team Providers Care Form Presser Name Role Phone Popeye Vera NP Primary Care Provider [phone] Social History Tobacco Use Types Packs/Day Years [...] file Medical Devices Not on file Insurance [facility] NON NSPG PCP SILVER [employer]ITY CONNE[employer]CARE [employer] NON NSPG PCP SILVER [employer] CONNECTORCARE [employer] NON NSPG PCP SILVER CLARITY CONNECTORCARE [employer] NON NSPG PCP SILVER CLARITY CONNECTORCARE [employer] NON NSPG PCP SILVER CLARITY CONNECTORCARE [employer]LL[employer] NON NSPG PCP SILVER CLARITY CONNECTORCARE [employer] NON NSPG PCP SILVER CLARITY CONNECTORCARE [employer]LL[employer] NON NSPG PCP SILVER CLARITY CONNECTORCARE [employer] NON NSPG PCP SILVER CLARITY CONNECTORCARE [place] [phone] Care Teams Form Presser Relationship Specialty Start Date End Date Popeye Vera NP [address] [place] [address] PCP - General 12/16/18 Additional Source Comments The information contained in this document represents components of the legal health record. It is not the complete legal health record.[facility]
--- OUTSIDE RECORDS SUMMARY | 2025-05-31 12:23 | XMS_ITS | Encounter Summary ---
Author Organization [facility] Address [address] [facility] [address] [place] [address] Phone Care Team Providers Care Sleep Scientist Name Role Phone Popeye Vera JOINT YARNER Primary Care Provider [phone] Encounter Details Date Type Department Care Team (Late st Contact Info) Description 12/17/2018 Ancillary Orders [facility] [address] [place] [address] [place] [address] Fab Berry DO [address] [place] [address] Palpitations Social History Tobacco Use Types Packs/Day [...] Palpitations documented in this encounter Care Teams Sleep Scientist Relationship Specialty Start Date End Date Popeye Vera NP 230 [place] [address] PCP - General 12/16/18 documented as of this encounter Additional Source Comments The information contained in this document represents components of the legal health record. It is not the complete legal health record.[facility]
--- NOTE | 2025-06-01 09:56 | HO.ANESPROP2 ---
Documented by User: Deepa Forrest NP 06/01/25 09:57 HPI - Anesthesia Eval Consult details Narrative: 54yo F for ?Upper Endoscopy s/p knee scope 11/2024 with GA-LMA 4 PMFSH Active Problems Active Problems: All Active Problems Esophageal dysmotility (Acute) Diarrhea (Acute) Chronic gastroesophageal reflux disease (Acute) Epigastric pain (Acute) Osteoarthritis of right knee (Acute) Tremor (Acute) Migraine (Acute) Anxiety disorder (Acute) Epilepsy (Acute) Tear of medial meniscus of right knee (Acute) Osteoarthritis of knees, bilateral (Acute) Postmenopausal bleeding (Acute) Tear of medial meniscus of left knee (Acute) Left knee pain (Acute) Chronic low back pain (Acute) Right knee pain (Acute) Uterine myoma (Acute) Bertolotti's syndrome (Acute) Lumbar spondylosis (Acute) Female pelvic pain (Acute) Well woman exam (Acute) Abnormal uterine bleeding (AUB) (Acute) Incisional hernia (Acute) Colon cancer screening (Acute) History of hepatitis (Acute) Myoma (Acute) Past Medical History Medical History Esophageal dysmotility Diarrhea Chronic gastroesophageal reflux disease Epigastric pain Epilepsy Seizure disorder Dizziness Osteoarthritis of knees, bilateral Migraine Anxiety disorder Fibromyalgia Seizure Family History Family History Maternal Grandmother Diabetes Father HTN (hypertension) Mother HTN (hypertension) Family history of problems with anesthesia: No Surgical History Surgical History H/O endoscopy H/O colonoscopy with polypectomy History of cholecystectomy History of tubal ligation History of Problems with Anesthesia: No Social History Social History Household Members: Spouse Household Members Other:: son Housing: House Are you a primary managed care provider to a significant other at home: No Do you presently have visiting nurse or other home services: No Alcohol intake: current Alcohol intake frequency: holidays/special occasions only Patient Tobacco Use Status: Never used Tobacco Use of substances other than those prescribed or required for medical reasons: No Are you DNR?: No Advance Directives: No Advance Directives Information Provided: Yes Patient : No : No Current occupational status: employed 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 Sexual orientation: Straight/Heterosexual Gender identity: Female Meds Allergies Allergy/AdvReac Type Severity Reaction Status Date / Time aspirin (ASPIRIN) Allergy Severe SWELLING, Verified 06/06/25 11:48 facial swelling Home Medications ?Medication ?Instructions ?Recorded ?Confirmed ?Last Taken ?Type dicyclomine 10 mg capsule 10 mg PO TID 03/08/24 05/26/25 Unknown History gabapentin 300 mg capsule 300 mg PO TID 03/08/24 05/26/25 Unknown History lidocaine 5 % topical patch patch topical 03/08/24 05/26/25 Unknown History triamcinolone acetonide 0.1 % appl topical pain 03/08/24 05/26/25 Unknown History topical cream ondansetron HCl 4 mg tablet 4 mg PO Q8H PRN nausea/vomiting 05/26/25 05/26/25 Unknown History pregabalin 25 mg capsule 25 mg PO BID 05/26/25 05/29/25 Unknown History Exam Pertinent Lab Results Pertinent Lab Results: Laboratory Tests 05/17/25 07:46 WBC 8.6 Hgb 12.8 Hct 39.7 Plt Count 166 Sodium 142 Potassium 4.6 Chloride 107 Carbon Dioxide 28 BUN 15 Creatinine 0.75 Assessment and Plan Assessment Anesthesia Assessment: Chart Reviewed Final Anesthetic Review Family History of Problems with Anesthesia: No History of Problems with Anesthesia: No Documented by User: José Miguel Perez MD 06/06/25 12:31 [facility] Past Medical History Medical History Esophageal dysmotility Diarrhea Chronic gastroesophageal reflux disease Epigastric pain Epilepsy Seizure disorder Dizziness Osteoarthritis of knees, bilateral Migraine Anxiety disorder Fibromyalgia Seizure Family History Family History Maternal Grandmother Diabetes Father HTN (hypertension) Mother HTN (hypertension) Surgical History Surgical History H/O endoscopy H/O colonoscopy with polypectomy History of cholecystectomy History of tubal ligation Social History Social History Household Members: Spouse Household Members Other:: son Housing: House Are you a primary managed care provider to a significant other at home: No Do you presently have visiting nurse or other home services: No Alcohol intake: current Alcohol intake frequency: holidays/special occasions only Patient Tobacco Use Status: Never used Tobacco Use of substances other than those prescribed or required for medical reasons: No Are you DNR?: No Advance Directives: No Advance Directives Information Provided: Yes Patient : No : No Current occupational status: employed 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 Sexual orientation: Straight/Heterosexual Gender identity: Female Meds Allergies Allergy/AdvReac Type Severity Reaction Status Date / Time aspirin (ASPIRIN) Allergy Severe SWELLING, Verified 06/06/25 11:48 facial swelling Home Medications ?Medication ?Instructions ?Recorded ?Confirmed ?Last Taken ?Type dicyclomine 10 mg capsule 10 mg PO TID 03/08/24 05/26/25 Unknown History gabapentin 300 mg capsule 300 mg PO TID 03/08/24 05/26/25 Unknown History lidocaine 5 % topical patch patch topical 03/08/24 05/26/25 Unknown History triamcinolone acetonide 0.1 % appl topical pain 03/08/24 05/26/25 Unknown History topical cream ondansetron HCl 4 mg tablet 4 mg PO Q8H PRN nausea/vomiting 05/26/25 05/26/25 Unknown History pregabalin 25 mg capsule 25 mg PO BID 05/26/25 05/29/25 Unknown History Exam Exam Date and Time: 06/06/25 Airway Mallampati Class: II TM Dist: >3cm Neck ROM: Full Heart: rrr Lungs: ctab vesicular Assessment and Plan Assessment Anesthesia Assessment: Anesthesia Plan Discussed Final Anesthetic Review NPO: Yes ASA Class: II Final Preanesthetic Review: No Changes in Pt Med Stat, Meds/Allgs Chart Reviewed, Consent Obtained/Reviewed and Anes Risks/Benef Reviewed Patient Risk: Low Procedure Risk: Low Anesthetic Plan Anesthetic Plan: MAC: Disposition: Standard PACU
[2025-06-06 11:58] VITALS: BP 120/65; PULSE 66; RESP 16; TEMP 36.1; O2SAT 95
[2025-06-06] MEDS: Lactated Ringers 1,000 ML 80 ML IVCONT (12:15)
--- NOTE | 2025-06-06 12:48 | MHC.SHP ---
Pre-Procedural Eval Section A - 24 Hr Update-Section A only Date of Service: 06/06/25 Section B - Complete if H&P > 30 days Chief Complaint: gerd,epigastric pain Relevant Family History (Specify if Yes): No Relevant Social History: None Present Medications: see Short Stay Collaborative assessment Medical History: Significant History (Esophageal dysmotility Diarrhea Chronic gastroesophageal reflux disease Epigastric pain Epilepsy Seizure disorder Dizziness Osteoarthritis of knees, bilateral Migraine Anxiety disorder Fibromyalgia Seizure) History of Previous Operations: Relevant previous surgery/procedure and date(s) ( History of cholecystectomy History of tubal ligation) Allergies: Allergies Allergy/AdvReac Type Severity Reaction Status Date / Time aspirin (ASPIRIN) Allergy Severe SWELLING, Verified 06/06/25 11:48 facial swelling Review of Systems Sugical H&P ROS: Negative: Constitution, Cardiovascular, Respiratory, Neurological, Psychiatric, Hem-Onc, Allergic/Immunologic, Gastrointestinal, Genitourinary, Musculoskeletal, Integumentary, Endocrine and Eyes/Ears/Nose/Throat Exam Surgical H&P Exam: Normal: HEENT, Normal: Heart, Normal: Lungs, Normal: Extremities, Normal: Abdomen, Normal: Skin and Normal: Neurological Plan Diagnosis/Plan: Unchanged I have reviewed the history and physical and performed a pertinent physical examination on my patient. No changes have occurred unless specified. Time Spent With Patient Time: Total time managing care of this patient today ____ minutes.
--- NOTE | 2025-06-06 13:12 | W.PM.OPN ---
Operative Note Operative Note Date of Service: 06/06/25 Narrative: Procedure Description: EGD Indication: GERD< epigastric pain Anesthesia: MAC FLEXIBLE TRANSORAL UPPER GASTROINTESTINAL ENDOSCOPY UPPER ENDOSCOPY Consent: Indications for the procedure and potential complications of bleeding, perforation, reaction to medications and missed diagnosis were discussed with the patient and informed consent was obtained. Instrument: Olympus GIF H 190 J mid size upper endoscope Monitoring: Vital signs and clinical assessment, continuous EKG monitoring, Pulse oximetry, Carbon Dioxide monitoring and blood pressure monitoring were done throughout the procedure. Procedure: The patient was placed in the left lateral decubitis position and pre-procedure medications were administered and a bite block was placed. The endoscope was inserted into the mouth and advanced under direct vision to the third part of duodenum. A careful inspection was made as the upper endoscope was withdrawn including a retroflexed examination of the proximal stomach; Findings and interventions are described below. Findings: Larynx:normal Esophagus: GE junction at 37 cm, diaphragm hiatus at 37 cm, irregular Z line, bx taken from GEJ and distal/prox esophagus Stomach: mild erythema . Biopsies were obtained. Grade 2 flap valve on retroflexed examination of the cardia. Duodenum: mild duodenitis , bx taken also for disaccharidases Intervention: Biopsies as noted above, Impression/Findings: irregular Z line duodenitis PLAN: await bx GERD precautions
[2025-06-06 13:15] VITALS: BP 86/46; PULSE 79; RESP 22; TEMP 36.5; O2SAT 95
[2025-06-06 13:20] VITALS: BP 95/57; PULSE 88; RESP 24; O2SAT 94
[2025-06-06 13:30] VITALS: PULSE 77; RESP 14; TEMP 36.2; O2SAT 98
[2025-06-10 20:29] LABS: Lactase 6.9 (15.0-45.5); Maltase 229.7 (100.0-224.4); Palatinase 20.9 (5.0-26.3); Sucrase 76.1 (25.0-69.9)
== END 2025-06-06 14:10 | disposition home or self-care (01) ==
PROVIDERS: PCP Student in an Organized Health Care Education/Training Program; Visit Provider Internal Medicine Gastroenterology
PROC: 0DJ08ZZ Inspection of Upper Intestinal Tract, Via Natural or Artificial Opening Endoscopic (ICD-10-PCS; CPT 43235; principal; 2025-06-06 14:40)
DX: R10.13 Epigastric pain (principal); K21.00 Gastro-esophageal reflux disease with esophagitis, without bleeding; R11.2 Nausea with vomiting, unspecified; K29.80 Duodenitis without bleeding
CPT/HCPCS: 43239; 82657; 88305; 88313; 88342; J2003; J2704

== ENCOUNTER → 2025-06-06 10:15 | Outpatient (BNV) | payer MEDICAID, SELFPAY | PROVIDERS: PCP Student in an Organized Health Care Education/Training Program; Visit Provider Internal Medicine Gastroenterology | DX: R10.13 Epigastric pain (principal); K22.89 Other specified disease of esophagus; K29.80 Duodenitis without bleeding | CPT/HCPCS: 43239 ==

== ENCOUNTER 2025-06-21 10:39 | Outpatient (AMB) | payer MEDICAID, SELFPAY ==
--- NOTE | 2025-06-21 10:47 | A.OFFVIS_ITS ---
Vital Signs 06/21/25 10:51 Height 5 ft 2.5 in Weight 170 lb BMI 30.6 Intake Visit Reasons: INJ- Right knee Durolane inj Intake Note: Karen is a 54 year old female who presents with complaints of right knee pain. She describes her pain as sharp in nature. She has failed the last 3 months of conservative treatment. She wishes to hold off on surgery if at all possible. Allergies aspirin (ASPIRIN) Allergy (Severe, Verified 06/21/25 10:48) SWELLING, facial swelling Medication List - Last Reconciled 06/21/25 by Keyon Bowles MD celecoxib (Celebrex) 200 mg PO DAILY PRN clonazepam (Klonopin) 0.5 mg PO BEDTIME 30 days cyclobenzaprine 5 mg PO BEDTIME PRN dicyclomine 10 mg PO TID divalproex (Depakote) 500 mg orally 1 tab in AM and 2 tabs at bedtime; 90 days famotidine 20 mg PO BID gabapentin 300 mg PO TID lidocaine 5% patches topical ondansetron HCl 4 mg PO Q8H PRN pantoprazole 40 mg PO QAM pregabalin 25 mg PO BID triamcinolone acetonide 0.1% appl topical PFSH Medical History Esophageal dysmotility Diarrhea Chronic gastroesophageal reflux disease Epigastric pain Epilepsy Seizure disorder Dizziness Osteoarthritis of knees, bilateral Migraine Anxiety disorder Fibromyalgia Seizure Surgical History (Updated 06/19/25 @ 15:06 by Tammi Engel) History of esophagogastroduodenoscopy (EGD) H/O endoscopy H/O colonoscopy with polypectomy History of cholecystectomy History of tubal ligation Family History Maternal Grandmother Diabetes Father HTN (hypertension) Mother HTN (hypertension) Social History Household Members: Spouse Household Members Other:: son Housing: House Are you a primary pet care assistant to a significant other at home: No Do you presently have visiting nurse or other home services: No Alcohol intake: current Alcohol intake frequency: holidays/special occasions only Patient Tobacco Use Status: Never used Tobacco Current occupational status: employed 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 Sexual orientation: Straight/Heterosexual Gender identity: Female Female Reproductive History Menstrual Age of Menarche: 10 Physical Exam Vital Signs: BMI result Body Mass Index 30.6 Const Other: Well-nourished well-developed very friendly female awake alert and oriented x3 in no acute distress Extrem Other: Right knee examination shows a minimal effusion, palpable crepitus with range of motion, pain with range of motion, no instability Office Procedures AMB Joint Injection/Aspiration Joint Injection/Aspiration Primary Site: Right Knee Prep: site was prepped using aseptic technique Injected: 60 mg of, Durolane, with 3 mL of and 1% plain Lidocaine Procedure: The patient tolerated the procedure well Coding - Large joint Procedure code (CPT) selection complete Results Reviewed Results Reviewed: X-rays of the patient's right knee taken previously show joint space narrowing, subchondral sclerosis, no acute bony abnormalities Assessment & Plan Assessment & Plan (1) Osteoarthritis of right knee: Code(s): M17.11 - Unilateral primary osteoarthritis, right knee Category: Medical Plan Karen presents with right knee pain due to osteoarthritis. The risks and benefits of a right knee Durolane viscosupplementation injection were discussed at length with the patient. The patient wished to proceed. She tolerated the injection well. She will continue with her home exercise program. She will contact me prior to her follow-up appointment in 3 months should any questions or concerns arise. Feel free to call me at any time should questions regarding her orthopedic management arise. I spent 20 minutes in reviewing the patient's records and imaging studies, seeing the patient and documenting in the medical record. Orders: Orders AMB Joint Injection/Aspiration Today M17.11 - Unilateral primary osteoarthritis, right knee Coding Level of Care Code Est Pt Level 3 (77436) Complex visit Add On G2211 Diagnoses Osteoarthritis of right knee M17.11 CPT Codes Coding - Large joint: 94970 - Large joint ([id number])
[2025-06-21 10:51] VITALS: BMI 30.6
--- OUTSIDE RECORDS SUMMARY | 2025-06-21 12:51 | XMS_ITS | Encounter Summary ---
Author Organization [employer] Address [address] [facility] [address]t [place] [address] Care Team Providers Care Indoor Plant Technician Name Role Phone Tammi Burgess MD Primary Care Pro vider Reason for Visit * Reason Comments Med Refill Encounter Details Date Type Department Care Team (Late st Contact Info) Description 08/11/2024 Refill [facility] [address] [place] [address] Tammi Burgess MD [address] [place], [place] [phone] Social History Tobacco Use Types Packs/Day Years [...] Description 06/29/2025 9:30 AM EST Office Visit [facility] [address] [place] [address] Tammi Burgess MD [address] [place] [address] 08/01/2025 9:30 AM EST Office Visit [facility] [address] [place] [address] Prasanth, Bozena [address] [place] [address] documented as of this encounter Visit Diagnoses Not on filedocumented in this encounter Additional Health Concerns Assessment Noted Time PHQ-9 Depression Total Score: 5 10/20/19 24 10:39 AM EDT documented as of this encounter Care Teams Indoor Plant Technician Relationship Specialty Start Date End Date Tammi Burgess MD [address] [place] [address] PCP - General Internal Medicine 04/13/23 documented as of this encounter
--- OUTSIDE RECORDS SUMMARY | 2025-06-21 12:52 | XMS_ITS | Clinical Summary ---
Author Organization [facility] Address [address] [place] [address] [place] [address] Phone Care Team Providers Care Body Former Name Role Phone Popeye Vera NP Primary Care Provider [phone] Social History Tobacco Use Types Packs/Day Years [...] file Medical Devices Not on file Insurance [facility] NON NSPG PCP [employer] NON NSPG PCP [employer] NON NSPG PCP SILVER [employer] CONNE[employer]CARE [employer] NON NSPG PCP SILVER [employer]ITY CONNE[employer]CARE [employer] NON NSPG PCP [facility] Address: [address] [place] [address] WELLSENSE NON NSPG PCP SILVER [employer]ARITY CONNE[employer]CARE [employer] NON NSPG PCP SILVER CLARITY CONNECTORCARE [employer] NON NSPG PCP SILVER [employer]ITY CONNECTORCARE [employer] NON NSPG PCP S[employer]ITY CONNE[employer]ARE [place] [phone] Care Teams Body Former Relationship Specialty Start Date End Date Popeye Vera NP [address] [place] [address] PCP - General 12/16/18 Additional Source Comments The information contained in this document represents components of the legal health record. It is not the complete legal health record.[facility]
--- OUTSIDE RECORDS SUMMARY | 2025-06-21 12:52 | XMS_ITS | Encounter Summary ---
Author Organization [employer] Address [address] [facility] 7t [place] [address] Care Team Providers Care Mattress Stripper Name Role Phone Tammi Burgess MD Primary Care Pro vider Encounter Details Date Type Department Care Team ([facility] st Contact Info) Description 07/18/2024 Orders Only [facility] [address] [place] [address] ProviderChata MD Social History Tobacco Use Types [...] 1:55 PM EST Pelvic US ordered by WEB WEAVER. Patient to fu results with WEB WEAVER (Dr Espinoza). documented in this encounter Plan of Treatment Upcoming Encounters Date Type Department Care Team (Late st Contact Info) Description 06/29/2025 9:30 AM EST Office Visit [facility] [address] [place] [address] Tammi Burgess MD [address] [place] [address] 08/01/2025 9:30 AM EST Office Visit [facility] [address] [place] [address] Bozena Rader [address] [place] [address] documented as of this encounter Procedures Procedure [...] PM EST Narrative 08/09/2024 10:56 AM EST [place] [address] Magnetic Resonance Report Signed Patient: Karen Og MR#: [id number] 4 : 1970 Acct:[id number] Age/Sex: 54 / F ADM Date: 08/07/24 Loc: HO.MRI Attending Dr: Keyon Bowles MD Ordering Physician: Keyon Bowles MD Date of Service: 08/07/24 Procedure(s): MR knee LT wo con Accession Number(s): [id number] cc: Tammi Burgess MD; Keyon Bowles MD [...] 08/09/24 1053 DD/ 1458 TD/TT: 08/07/[address] Mixer Operator: Procedure Note Donotuseinterpreter, Image - 08/09/[address] [address] Magnetic Resonance Report Signed Patient: Karen Og MMR#: [id number] 4 : 1970Acct:[id number] Age/Sex: 54 / FADM Date: 08/07/24 Loc: HO.MRI Attending Dr: Keyon Bowles MD Ordering Physician: Keyon Bowles MD Date of Service: 08/07/24 Procedure(s): MR knee LT wo con Accession Number(s): [id number] cc: Tammi Burgess MD; Keyon Bowles MD [...] 08/09/24 1053 DD/ 1458 TD/TT: 08/07/[address] Mixer Operator: [facility] External Provider IMG MRI PROCEDURES Final Result * US Pelvis Transvaginal (08/02/2024 4:26 PM EST) Anatomical Region Laterality Modality Pelvis Ultrasound 08/02/2024 4:26 PM EST Narrative 08/02/2024 4:27 PM EST [place] [address] Ultrasound Report Signed Patient: Karen Og MR#: [id number] 4 : 1970 Acct:[id number] Age/Sex: 54 / F ADM Date: 08/01/24 Loc: HO.US Attending Dr: Juan Espinoza MD Ordering Physician: Juan Espinoza MD Date of Service: 08/01/24 Procedure(s): US pelvic and transvaginal Accession Number(s): [id number] cc: Tammi Burgess MD; Juan Espinoza MD CLINICAL HISTORY: D25.9 - Leiomyoma of uterus, unspecified US pelvis transabdominal and transvaginal Comparison: US/MN/SR - US PELVIC AND TRANSVAGINAL - 09/28/23 [...] MD Signed By: <Electronically signed by Yeni uHtchison MD in OV> 08/02/241625 DD/ 25 TD/TT: 08/02/241625 Road Mixer Operator: Procedure Note Donotuseinterpreter, Image - 08/02/2024 [place] [address] Ultrasound Report Signed Patient: Karen Og [facility]#: [id number] 4 : 1970Acct:[id number] Age/Sex: 54 / FADM Date: 08/01/24 Loc: HO.US Attending Dr: Juan Espinoza MD Ordering Physician: Juan Espinoza MD Date of Service: 08/01/24 Procedure(s): US pelvic and transvaginal Accession Number(s): [id number] cc: Tammi Burgess MD; Juan Espinoza MD CLINICAL HISTORY: D25.9 - Leiomyoma of uterus, unspecified US pelvis transabdominal and transvaginal Comparison: US/MN/SR - US PELVIC AND TRANSVAGINAL - 09/28/23 [...] 08/02/24 1626 DD/ 1626 TD/TT: 08/02/[address] Operator: [facility] External Provider IMG US PROCEDURES Final Result * Hm Colonoscopy (05/28/2022 1:55 PM EDT) Historical Provider HEALTH MAINTENANCE Final Result documented in this encounter Visit Diagnoses Not on filedocumented in this encounter Additional Health Concerns Assessment Noted Time PHQ-9 Depression Total Score: 5 10/20/19 24 10:39 AM EDT documented as of this encounter Care Teams Mattress Stripper Relationship Specialty Start Date End Date Tammi Burgess MD [address] [place] [address] PCP - General Internal Medicine 04/13/23 documented as of this encounter
--- OUTSIDE RECORDS SUMMARY | 2025-06-21 12:52 | XMS_ITS | Encounter Summary ---
Author Organization [employer] Address [address] [place] [address] [address] [place] [address] Care Team Providers Care Musculoskeletal Physician Name Role Phone Tammi Burgess MD Primary Care Pro vider Reason for Visit * Reason Onset Date Comments Nurse Triage 07/16/2023 Encounter Details Date Type Department Care Team ([facility] st Contact Info) Description 07/16/2023 Telephone [facility] [address] [place] [address] Tammi Burgess MD [address] [place] [address] Nurse Triage Social History Tobacco Use Types [...] 07/16/2023 4:32 PM EST Triage call with Jeff Davis Personal Support Worker ID [id number] Pt requests for Pt to speak for Pt. Pt has acute right knee pain. Pt has been seen in [facility] 07/09/23. Pt was prescribed tylenol 500mg, brace, voltaren gel and xrays. Xrays have been done. Pt isasking what xray results are pattern chart writer advised that there is evidence of [...] 9:30 AM EST Office Visit [facility] [address] [place] [address] Tammi Burgess MD [address] [place] [address] 08/01/2025 9:30 AM EST Office Visit [facility] [address] [place], [place] [phone] Bozena Rader [address] [place] [address] documented as of this encounter Visit Diagnoses Not on filedocumented in this encounter Care Teams Musculoskeletal Physician Relationship Specialty Start Date End Date Tammi Burgess MD [address] [place] [id number] PCP - General Internal Medicine 04/13/23 documented as of this encounter
--- OUTSIDE RECORDS SUMMARY | 2025-06-21 12:52 | XMS_ITS | Encounter Summary ---
Author Organization [employer] [facility] Address [address] [place] [address] [address] [place] [address] Care Team Providers Care Dam Attendant Name Role Phone Charito Lawrence Primary Care [...] Care Team ( st Contact Info) Description 06/29/2025 9:30 AM EST Office Visit [facility] [address] [place] [address] Tammi Burgess MD [address] [place] [address] 08/01/2025 9:30 AM EST Office Visit [facility] [address] [place] [address] Bozena Rader [address] [place] [address] documented as of this encounter Visit Diagnoses Not on filedocumented in this encounter Care Teams Dam Attendant Relationship Specialty Start Date End Date Charito Lawrence FNP PCP - General Family Medicine 05/17/21 04/12/23 Tammi Burgess MD [address] [place] [phone] PCP - General Internal Medicine 04/13/23 documented as of this encounter
--- OUTSIDE RECORDS SUMMARY | 2025-06-21 12:52 | XMS_ITS | Encounter Summary ---
Author Organization [employer] Address [address] [place] [address] 7 [place] [address] Care Team Providers Care Casing Man Name Role Phone Tammi Burgess MD Primary Care Pro vider Reason for Referral * Consultation (Routine) - Closed Specialty Diagnoses / Procedures Referred By Contac t Referred To Contact Orthopaedic Surgery Diagnoses Knee pain, unspecified chronicity, unspecified laterality Tammi Burgess MD [address] [place] [phone] Phone: tel: fax: [facility] [address] [place] [address] Phone: tel: Referral ID Status Reason Start Date Expiration Date V isits Requested Visits Authorized [id number] Closed Specialty Services Required 11/24/2024 11/24/2025 6 6 Encounter Details Date Type Department Care Team (Late st Contact Info) Description 12/07/2024 Orders Only [facility] [address] [place] [address] [phone] Tammi Burgess MD [address] [place] [address] [phone] Knee pain, unspecified chronicity, unspecified laterality (Primary [...] EST Office Visit [facility] [address] [place] [address] [phone] Tammi Burgess MD [address] [place], [place] [phone] 08/01/2025 9:30 AM EST Office Visit [facility] ADULT DENTAL [address] [place] [phone] Bozena Rader [address] [place] [address] Scheduled Referrals Name Type Priority Associated Diagnoses [...] documented as of this encounter Care Teams Casing Man Relationship Specialty Start Date End Date Tammi Burgess MD [address] [place] [phone] PCP - General Internal Medicine 04/13/23 documented as of this encounter
--- OUTSIDE RECORDS SUMMARY | 2025-06-21 12:52 | XMS_ITS | Encounter Summary ---
Author Organization [employer] Address [address] [facility] 7t [place] [address] Care Team Providers Care Hand Tool Filer Name Role Phone Tammi Burgess MD Primary Care Pro vider Reason for Visit * Reason Onset Date Comments Lab Orders 05/25/2025 Encounter Details Date Type Department Care Team (Latest Contact Info) Description 05/25/2025 Results Follow-Up [facility] [address] [place] [address] Stephani Crystal RN Ova and Parasites, Strongyloides [...] RN - 05/25/2025 9:21 AM EDT Called [facility] [place] Main Lab, spoke with [...] 9:30 AM EST Office Visit [facility] [address] [place] [address] Tammi Burgess MD [address] [place] [address] 08/01/2025 9:30 AM EST Office Visit [facility] ADULT DENTAL [address] [place], [place] [phone] Prasanth, Bozena [address] [place] [address] documented as of this encounter Visit Diagnoses Not on filedocumented in this encounter Additional Health Concerns Assessment Noted Time PHQ-9 Depression Total Score: 8 12/27/19 25 3:12 PM EDT documented as of this encounter Care Teams Hand Tool Filer Relationship Specialty Start Date End Date Tammi Burgess MD [address] [place] [address] [phone] PCP - General Internal Medicine 04/13/23 documented as of this encounter
--- OUTSIDE RECORDS SUMMARY | 2025-06-21 12:52 | XMS_ITS | Encounter Summary ---
Author Organization [facility] Address [address] [facility] [address] [place] [address] Phone Care Team Providers Care Microcomputer Technician Name Role Phone Popeye Vera SUPERVISOR TRAIN OPERATIONS Primary Care Provider Encounter Details Date Type Department Care Team (Late st Contact Info) Description 12/17/2018 Ancillary Orders [facility] [place] [facility] [address] [place] [address] [place] [address] Fab Berry DO [address] [place] [address] Palpitations Social History Tobacco Use Types Packs/Day [...] Palpitations documented in this encounter Care Teams Microcomputer Technician Relationship Specialty Start Date End Date Popeye Vera NP [address] [place] [address] PCP - General 12/16/18 documented as of this encounter Additional Source Comments The information contained in this document represents components of the legal health record. It is not the complete legal health record.[facility]
--- OUTSIDE RECORDS SUMMARY | 2025-06-21 12:52 | XMS_ITS | Encounter Summary ---
Author Organization [employer] Address [address] [facility] 7t [place] [address] Care Team Providers Care Tank Tender Name Role Phone Tammi Burgess MD Primary Care Pro vider Encounter Details Date Type Department Care Team (Late st Contact Info) Description 08/06/2023 Orders Only [facility] [address] [place], [place] [phone] Judy Prieto MD [address] [place], [place] [phone] Acute pain of right knee (Primary Dx); [...] Description 06/29/2025 9:30 AM EST Office Visit [facility] [address] [place] [address] Tammi Burgess MD [address] [place] [phone] 08/01/2025 9:30 AM EST Office Visit [facility] ADULT DENT[facility] [address] [place] [address] Prasanth, Bozena [address] [place] [address] documented as of this encounter Visit Diagnoses Diagnosis Acute pain of right knee- Primary Effusion of right knee Dislocation of right knee with medial meniscus tear, initial encounter documented in this encounter Additional Health Concerns Assessment Noted Time PHQ-9 Depression Total Score: 0 07/23/20 11:15 AM EST documented as of this encounter Care Teams Tank Tender Relationship Specialty Start Date End Date Tammi Burgess MD [address] [place] [phone] PCP - General Internal Medicine 04/13/23 documented as of this encounter
--- OUTSIDE RECORDS SUMMARY | 2025-06-21 12:52 | XMS_ITS | Data Portability ---
Author Organization [place] [facility], All[facility] Address [address] [address] Care Team Providers Care Last Repairer Name Role Phone [facility] Primary Care Provider Assessment Encounter Date [...] as needed for subjective changes in hearing. [email or web address] Not available 07/05/2024 11:53:16 Plan of Treatment [...] Organization Details Recorded Time Abnormal auditory perception 69445805 Active 024 Claudia pollard [facility] 11:26:51 Problem Notes None recorded. Procedures Surgical History Date Name Laterality Status Provider Name and Address Organization Details Recorded Time 07/05/20 24 Tympanometry - 66936 completed Claudia Love [facility] 07/05/2024 11:26:42 07/05/20 24 [employer] - 46883 completed Claudia Love [facility] 07/05/2024 11:26:38 Imaging Results None recorded. Procedure Notes None recorded. Medical Equipment None Reported. Allergies Allergen ID Allergen Name Allergen Category Reaction Reaction Severity Criticality Documentation Date Start Date Code Code System Note Provider Name and Address Organization Details Recorded Time 017742 aspirin medicatio n Not available Not available Not available 07/05/2024 1191 RxNorm Martine pollard [facility] 11:36:59 [...] Details Last Updated DateTime 07/05/2024 157.48 cm 68623.86 g Martine Pearce [place] [facility] 07/05/2024 11:36:51 Social History None recorded. Functional Status None recorded. Mental Status None recorded. Family History Nothing Reported. Medical History Condition Response GERD/Reflux Y Gynecological HistoryNo gynecological history recorded. Obstetrics History GPAL:G 0 P 0 0 0 0 Past Encounters Encounter ID Performer Location Encounter Start Date Encounter Closed Date Diagnosis/Indication Diagnosis SNOMED-CT Code Diagnosis ICD10 Code Diagnosis IMO Codes Diagnosis Note [id number] BALBIR HENDRICKSON MD [facility] [address] [phone] 07/05/2024 10:26:51 07/05/2024 11:54:36 Abnormal auditory perception 25034591 H93.299 Audiologic al evaluation results: Right ear: [...] Melvin Member ID Guarantor Name 07/05/2024 1 [place] [facility] Karen Spann [id number] Karen Og 07/05/2024 1 [facility] ([facility]) Karen Og [id number] Karen M Og Notes Date Note Type [...] for hearing loss. BALBIR HENDRICKSON MD [address] [place] [address], [phone] 07/05/2024 11:53:35 OBGyn Episode No OBEpisode recorded.
--- OUTSIDE RECORDS SUMMARY | 2025-06-21 12:52 | XMS_ITS | Encounter Summary ---
Author Organization [employer] Address [address] [place] [address] 7 [place] [address] Care Team Providers Care Die Polisher Name Role Phone Charito Lawrence [facility] Primary Care Provider Tammi Downs MD Primary Care Pro vider Encounter Details Date Type Department Care Team (Late st Contact Info) Description 03/31/2023 Abstract [facility] ADULT DENTAL [address] [place] [phone] Jamey Hussein, DMD [address] [place] [address] Social History Tobacco Use Types Packs/Day Years [...] Visit [facility] MEDICINE [address] [place] [address] Tammi Burgess MD [address] [place] [address] 08/01/2025 9:30 AM EST Office Visit [facility] ADULT DENTAL [address] [place] [address] Bozena Rader [address] [place], [place] [phone] documented as of this encounter Visit Diagnoses Not on filedocumented in this encounter Care Teams Die Polisher Relationship Specialty Start Date End Date Charito Lawrence FNP PCP - General Family Medicine 05/17/21 04/12/23 Tammi Burgess MD [address] [place], [place] [phone] PCP - General Internal Medicine 04/13/23 documented as of this encounter
--- OUTSIDE RECORDS SUMMARY | 2025-06-21 12:52 | XMS_ITS | Clinical Summary ---
Author Organization [employer] Address [address] [place] [address] 7t [place] [address] Care Team Providers Care Flap Lining Binder Name Role Phone Tammi Burgess MD Primary [...] BY MOUTH TWICE DAILY 60 capsule 1 5 10:32 AM EST 05/03/20 25 Active famotidine (Pepcid) 20 MG tablet Take [...] OR CHEW. 180 capsule 05/25/20 25 Active omeprazole (PriLOSEC) 40 MG [...] bedtime. 1680 mL 04/28/20 25 025 Discontinued ondansetron (Zofran) 4 MG tablet Take 1 tablet (4 mg) by mouth every 8 (eight) hours if needed for nausea or vomiting for up to 20 days. 20 tablet 05/17/20 25 025 Active Problems Problem Noted Date [...] cancer: Never smoker Eye: 02/2023 WNL at [facility] Dental: up to date Hernia of [...] Encounters Date Type Department Care Team Description 06/20/2025 Patient Outreach [address] [address] Tammi Burgess MD Pre-visit Planning (Pre-visit planning - LVM ) 06/06/2025 Orders Only GENERIC EXTERNAL DATA DEPARTMENT Provider, Generic External Data 05/29/2025 Orders Only GENERIC EXTERNAL DATA DEPARTMENT Provider, Generic External Data 05/27/2025 Orders Only GENERIC EXTERNAL DATA DEPARTMENT Provider, Generic External Data 05/25/2025 Results Follow-Up [address] [address] Stephani Crystal RN Ova and Parasites, Strongyloides Antibody (IgG) 05/23/2025 Refill [facility] [address] [address] Tammi Eldridge MD Epigastric pain 05/19/[address] [address] Tammi Burgess MD Medication Question 05/17/2025 Orders Only [address] [address] Tammi Burgess MD Eosinophilia, unspecified type (Primary Dx) 05/17/2025 Orders Only GENERIC EXTERNAL DATA DEPARTMENT Provider, Generic External Data 05/03/[address] [address] Tammi Burgess MD 04/28/2025 10:20 AM EDT Office Visit [facility] [address] [address] Tammi Eldridge MD Epigastric pain 04/28/2025 Travel 04/17/2025 1:40 PM EDT Office Visit [facility] [address] [address] Kristal San ANP Rash (Primary Dx) 04/17/2025 Travel 04/14/2025 Results Follow-Up [facility] [address] [phone] Shravan Dunne MD Leukocytes Stool Qualitative, Stool - Gastrointestinal panel, CBC auto differential, Comprehensive Metabolic Panel 04/12/2025 Orders Only [facility] [address] [place], [place] [phone] Shravan Dunne MD 04/11/2025 7:20 PM EDT Office Visit [facility] [address] [place], [place] [phone] Shravan Dunne MD Epigastric pain (Primary Dx) 04/11/2025 Travel 04/04/2025 Refill [facility] [address] [facility] [place], [place] [phone] Tammi Burgess MD from Last 3 Months Immunizations Immunization Administration [...] [facility] [address] [place] [address] Tammi Burgess MD [address] [place] [address] 08/01/2025 9:30 AM EST Office Visit [facility] [address] [place] [phone] Bozena Rader [address] [place] [address] Health Maintenance Due Date Last Done Comments [...] Diagnosis Comments HEMATOXYLIN AND EOSIN STAIN Routine 06/06/2025 1:17 PM EST DISACCHARIDASES Routine 06/06/2025 1:10 PM EST VALPROIC ACID Routine 05/29/2025 12:35 PM EST CALPROTECTIN, STOOL Routine 05/29/2025 1 0:27 AM EST HELICOBACTER PYLORI AG, EIA, STOOL Routine 05/29/2025 10:27 AM EST TISSUE TRANSGLUTAMINASE AB, IGA Routine 05/27/2025 9:27 AM EDT LIPASE Routine 05/27/2025 9:27 AM EDT AMYLASE Routine 05/27/2025 9:27 AM EDT C-REACTIVE PROTEIN Routine 05/27/2025 9: 27 AM EDT OVA AND PARASITES, CONC AND PERM SMEAR Routine 05/24/2025 11:22 AM EDT Eosinophilia, unspecified type OVA AND PARASITES, CONC AND PERM SMEAR Routine 05/23/2025 3:48 PM EDT Eosinophilia, unspecified type OVA AND PARASITES, CONC AND PERM SMEAR Routine 05/23/2025 9:34 AM EDT Eosinophilia, unspecified type STRONGYLOIDES AB IGG [...] Routine 04/12/2025 10:09 AM EDT Epigastric pain BI MAMMOGRAM SCREENING TOMOSYNTHESIS BILATERAL Routine 02/27/2025 [...] caries associated with failed or defective dental christianity Full coverage crown needed for root canal-treated [...] Maintenance Results * Hematoxylin and Eosin Stain (06/06/2025 1:17 PM EST) 06/06/2025 1:17 PM EST 06/06/2025 1:50 PM EST [facility] LABS - 06/08/2025 2:58 PM EST ----- ------- Name: Karen Lowe Age/Sex: 54/F : 1970 Unit#: [id number] Attend Dr: Julissa Bruhs MD Re06/06/25 Status: [facility] Location: [facility] Disch: ----- ------- SPEC : [id number] RECD: 06/06/25-1350 STATUS: CANVicki SOREN NUM: [id number] MORGAN: 06/06/25-1317 [facility] DR: Julissa Brush MD ENTERED: 06/06/25-1401 SP TYPE: Surgical OTHR DR: Tammi Burgess MD ORDERED: HE Stain/12, Gross Micro L4/5, IHC, Special st. 2/3, H. pylori, AB/PAS/3 Diagnosis A. Duodenum, biopsy: Duodenal mucosa within normal limits. B. Stomach, biopsy: Antral-type and oxyntic mucosa with mild chronic inactive inflammation; no Helicobacter organisms seen. C. EG junction, biopsy: - Cardiofundic-type mucosa with moderate chronic inactive inflammation; no intestinal metaplasia seen. - Active esophagitis (maximum eosinophil count over 30 per high powered field). D. Esophagus, distal, biopsy: Squamous epithelium within normal limits; no inflammation seen. E. Esophagus, proximal, biopsy: Squamous epithelium within normal limits; no inflammation seen. Clinical History Pre-Op Dx: ABD pain Post-Op Dx: Possible gastroparesis, irregular Z line, duodenitis Microscopic Description A-E. Microscopic sections examined. No metaplastic changes are seen, supported by AB/PAS stains (A, B and C); no Helicobacter organisms are seen, supported by H. pylori immunostain (B). Material Received A. Duodenum bxs B. Stomach bxs C. EG junction bxs D. Distal esophagus E. Proximal esophagus Gross Description A. Received in formalin are 3 benjamin 1 mm soft tissue fragments, totally submitted in cassette A1. B. Received in formalin are 2 benjamin 1 and 3 mm soft tissue fragments, totally submitted in cassette B1. C. Received in formalin are 2 benjamin 1 and 2 mm soft tissue fragments, totally submitted in CONTINUED ON NEXT PAGE ----- ------- Name: Karen Lowe Age/Sex: 54/F : 1970 Unit#: [id number] Attend Dr: Julissa Brush MD Re06/06/25 Status: [facility] Location: [facility] Disch: ----- ------- SPEC : [id number] RECD: 06/06/25-8560 STATUS: KETURAH DOTY NUM: [id number] MORGAN: 06/06/25-1317 [facility] DR: Julissa Brush MD ENTERED: 06/06/25-8890 SP TYPE: Surgical OTHR DR: Tammi Burgess MD ORDERED: HE Stain/12, Gross Micro L4/5, IHC, Special st. 2/3, H. pylori, AB/PAS/3 Gross Description (Continued) cassette C1. D. Received in formalin are 3 white 1 mm soft tissue fragments, totally submitted in cassette D1. E. Received in formalin are 2 white 1 mm soft tissue fragments, totally submitted in cassette E1. (DTL) Special studies ordered and performed: Immunostain for H. pylori on B; AB/PAS stains on A, B and C IHC S/NG Disclaimer NOTE: Unless otherwise stated, all tissue is formalin-fixed and paraffin-embedded. Some or all of the immunohistochemical tests reported herein may have been developed and their performance characteristics determined by [facility]. They have not been cleared or approved by the U.S. Food and Drug Administration (FDA). However, the FDA has determined that such clearance or approval is not necessary. This laboratory is certified under the Clinical Laboratory Improvement Amendments of 1988 (CLIA) as qualified to perform high complexity clinical laboratory testing. Copies To: Julissa Brush MD [facility] [address] [place] [address] [phone] Tammi Burgess MD [address] [phone] ----- ------- Signed (signature on file) Slick Diaz MD 06/08/25 1458 ----- ------- END OF REPORT Generic External Data Provider LAB BLOOD ORDERAB LES Final Result Performing Organization Address [facility] Co de Phone Number [facility] [address] [place] [phone] * (ABNORMAL) Disaccharidases (06/06/2025 1:10 PM EST) Lactase 6.9(A) 15.0 - 45.5 [facility] Comment:Result Units: uM/min /g prot Sucrase 76.1(A) 25.0 - 69.9 [facility] Comment:Result Units: uM/min /g prot Maltase 229.7(A ) 100.0 - 224.4 [facility] Comment:Result Units: uM/min /g prot Palatinase 20.9 5.0 - 26.3 [facility] Comment:Result Units: uM/min /g protThis test was developed and its analytical performancecharacteristics have been determined by [employer].It has not been cleared or approved by the FDA. This assayhas been validated pursuant to the CLIA regulations and isused for clinical purposes.THIS TEST WAS PERFORMED AT:[employer]/[facility] [id number] [facility] [address]RBBVNMARY JOHNSTON MD,PHD,ESTHER 06/06/2025 1:10 PM EST 06/06/2025 1:23 PM EST Generic External Data Provider LAB CYTOLOGY ORDE RABLES Final Result Performing Organization Address [facility]/ZIP Co de Phone Number [facility] [address] [place] [phone] * Valproic Acid Total (05/29/2025 12:35 PM EST) Valproate 97.8 50.0 - 100.0 mcg/mL [facility] 05/29/2025 12:3 5 PM EST 05/29/2025 12:47 PM EST us Generic External Data Provider LAB BLOOD ORDERAB LES Final Result Performing Organization Address [facility] Co de Phone Number [facility] [address] [place] [phone] * Calprotectin, Stool (05/29/2025 10:27 AM EST) Calprotectin,Fecal 115 mcg/g [facility] Comment:Reference Range: <5 0 Normal 50-120 Borderline >120 ElevatedCalprotectin in Crohn's disease and ulcerative colitis canbe five to several thousand times above the referencepopulation (50 mcg/g or less). Levels are usually 50 mcg/gor less in healthy patients and with irritable bowelsyndrome. Repeat testing in 4-6 weeks is suggested forborderline values.THIS TEST WAS PERFORMED AT:[employer] [id number] [facility] [address]JPGNQMARY JOHNSTON MD,PHD,ESTHER 05/29/2025 10:2 7 AM EST 05/29/2025 12:23 PM EST Generic External Data Provider LAB BODY FLUIDS A ND STOOLS ORDERABLES Final Result Performing Organization Address [facility] Co de Phone Number [facility] [address] [place] [phone] * Helicobacter pylori??Antigen, EIA, Stool (05/29/2025 10:27 AM EST) Only the most recent of2 resultswithin the time period is included. H pylori Ag Stool SEE NOTE [facility] Comment:HELICOBACTER PYLORI AG, EIA, STOOL Micro Number: [id number] Test Status: Final Specimen Source: Stool Specimen Quality: Adequate H.pylori Ag: Not Detected Antimicrobials, proton pump inhibitors, and bismuth preparations inhibit H. pylori and ingestion up to two weeks prior to testing may cause false negative results. If clinically indicated the test should be repeated on a new specimen obtained two weeks after discontinuing treatment. Reference Range: Not DetectedTHIS TEST WAS PERFORMED AT:[email or web address] [place] [id number] BLANCAS MD 05/29/2025 10:2 7 AM EST 05/29/2025 12:23 PM EST us Generic External Data Provider LAB BODY FLUIDS A ND STOOLS ORDERABLES Final Result Performing Organization Address [facility] de Phone Number [facility] [address] [place] [phone] * Tissue Transglutaminase Antibody, IgA (05/27/2025 9:27 AM EDT) Transglutaminase IgA <1.0 U/mL [facility] Comment:Value Interpretation ----- <15.0 Antibody not detected> or = 15.0 Antibody detectedTHIS TEST WAS PERFORMED AT:[employer] [address] [address]WRYAWAMY BLANCAS MD 05/27/2025 9:27 AM EDT 05/27/2025 9:27 AM EDT us Generic External Data Provider LAB BLOOD ORDERAB LES Final Result Performing Organization Address [facility] de Phone Number [facility] [address] [place] [phone] * (ABNORMAL) C-reactive Protein (05/27/2025 9:27 AM EDT) C Reactive Protein 0.72(H) < or = 0.50 mg/dL [facility] 05/27/2025 9:27 AM EDT 05/27/2025 9:27 AM EDT us Generic External Data Provider LAB BLOOD ORDERAB LES Final Result Performing Organization Address [facility]/ZIP Co de Phone Number [facility] [address] [place] [phone] * Lipase (05/27/2025 9:27 AM EDT) Only the most recent of2 resultswithin the time period is included. Lipase 34 8 - 78 U/L [facility] 05/27/2025 9:27 AM EDT 05/27/2025 9:27 AM EDT us Generic External Data Provider LAB BLOOD ORDERAB LES Final Result Performing Organization Address City/[facility]/ZIP Co de Phone Number [facility] [address] [place] [phone] * Amylase (05/27/2025 9:27 AM EDT) Amylase 47 28 - 100 U/L [facility] 05/27/2025 9:27 AM EDT 05/27/2025 9:27 AM EDT Generic External Data Provider LAB BLOOD ORDERAB LES Final Result Performing Organization Address City/[facility] Co de Phone Number [facility] [address] [place] [phone] * Ova and Parasites (05/24/2025 11:22 AM EDT) Only the most recent of3 resultswithin the time period is included. Ova and Parasite Trichrome SEE NOTE [facility] Comment: OVA AND PARASITES, CONC AND PERM SMEAR Micro Number: [id number] Test Status: Final Specimen Source: Stool Specimen Quality: Adequate CONCENTRATION 1: No ova or parasites seen TRICHROME 1: No ova or parasites seen Routine Ova and Parasite exam may not detect some parasites that occasionally cause diarrheal illness. Cryptosporidium Antigen and/or Cyclospora and Isospora Exam may be ordered to detect these parasites. One negative sample does not necessarily rule out the presence of a parasitic infection. For additional information, please refer to https://education.[employer]/faq/XSF408 (This link is being provided for informational/ educational purposes only.)THIS TEST WAS PERFORMED AT:[employer] [facility] [address] [place] [address]UAXG JUDSON,MD Stool Rectal contents / Unknown 05/24/2025 11:22 AM EDT 05/24/2025 4:16 PM EDT Tammi Sorenson MD LAB MICROBIOLOGY - GENERAL ORDERABLES Final Result Performing Organization Address City/[facility]/ZIP Co de Phone Number [facility] [address] [place] [phone] * Strongyloides Antibody (IgG) (05/18/2025 9:31 AM EDT) Pathologist [facility] Strongyloides Antibody IgG NEGATIVE [facility] Comment:REFERENCE RANGE: NEG ATIVEStrongyloides stercoralis is a parasiticNematode found in tropical and subtropicalregions. Because of low larval densities infeces, stool examination is a relativelyinsensitive diagnostic test; antibody detectionoffers increased sensitivity. Patients withlatent infections who are immunosuppressed orreceiving immunosuppressive therapy are at riskof life- threatening hyperinfection. Significantcrossreactivity may be observed in otherhelminth infections.THIS TEST WAS PERFORMED AT:[employer]/[facility] [id number] [facility] [place] [address]PMHBIMARY JOHNSTON MD,PHD,ESTHER Blood Venous blood specimen / Unknown 05/18/2025 9:31 AM EDT 05/18/2025 11:42 AM EDT us Tammi Sorenson MD LAB BLOOD ORDERAB LES Final Result Performing Organization Address [facility]/ZIP Co de Phone Number [facility] [address] [place] [phone] * Slide Review (05/17/2025 7:46 AM EDT) Only the most recent of2 resultswithin the time period is included. Pathologist [facility] Slide Review VERIFIED [facility] 05/17/2025 7:46 AM EDT 05/17/2025 7:50 AM EDT us Generic External Data Provider LAB BLOOD ORDERAB LES Final Result [facility] [address] [place] [phone] [phone] * (ABNORMAL) CBC auto differential (05/17/2025 7:46 AM EDT) Only the most recent of2 resultswithin the time period is included. White Blood Count 8.6 4.8 - 10.8 X10*3/uL [facility] Red Blood Count 4.11(L) 4.20 - 5.50 X10*6/uL [facility] Hemoglobin 12.8 12.0 - 16.0 g/dl [facility] Hematocrit 39.7 37.0 - 47.0 % [facility] Mean Corpuscular Volume 96.6 80.0 - 98.0 fL [facility] Mean Corpuscular Hemoglobin 31.1 27.0 - 33.0 pg [facility] Mean Corpuscular HGB Conc 32.2 31.0 - 35.0 g/dl [facility] Red Cell Distribution Width 14.6 11.0 - 16.0 % [facility] Platelet Count 166 160 - 400 X10*3/uL [facility] Mean Platelet Volume 9.8 9.4 - 12.3 fL [facility] Neutrophils Percent Auto 29.0(L) 45 - 73 % [facility] Imm Gran Pct Auto 0.2 0.0 - 0.4 % [facility] Lymphocytes Percent Auto 21.5 20 - 40 % [facility] Monocytes Percent Auto 7.5 2 - 11 % [facility] Eosinophils Percent Auto 41.2(H) 0 - 4 % [facility] Basophils Percent Auto 0.6 0 - 2 % [facility] NRBC Pct Auto 0.0 0.0 - 0.2 /100WBC [facility] Neutrophils Absolute Auto 2.5 2.0 - 8.3 x10*3/uL [facility] Imm Gran Abs Auto 0.02 0.00 - 0.03 X10*3/uL [facility] Lymphocytes Absolute Auto 1.9 1.2 - 4.9 X10*3/uL [facility] Monocytes Absolute Auto 0.7 0.1 - 1.2 X10*3/uL [facility] Eosinophils Absolute Auto 3.6(H) 0.0 - 0.4 X10*3/uL [facility] Basophils Absolute Auto 0.1 0.0 - 0.2 X10*3/uL [facility] NRBC Abs Auto 0.000 0.0 - 0.012 X10*3/uL [facility] 05/17/2025 7:46 AM EDT 05/17/2025 7:50 AM EDT Generic External Data Provider LAB BLOOD ORDERAB LES Edited Result - Final Performing Organization Address [facility] Co de Phone Number [facility] [address] [place] [phone] * Magnesium (05/17/2025 7:46 AM EDT) Magnesium 2.0 1.6 - 2.6 mg/dL [facility] 05/17/2025 7:46 AM EDT 05/17/2025 7:50 AM EDT [employer] External Data Provider LAB BLOOD ORDERAB LES Final Result Performing Organization Address [facility] Co de Phone Number [facility] [address] [place] [phone] * Hepatic Function Panel (05/17/2025 7:46 AM EDT) Bilirubin, Total 0.4 0.0 - 1.0 mg/dL [facility] Bilirubin, Direct 0.1 0.0 - 0.5 mg/dL [facility] Aspartate Amino Transferase 28 5 - 31 U/L [facility] Alanine Aminotransferase 29 0 - 31 U/L [facility] Total Protein 7.1 6.5 - 8.0 g/dL [facility] Albumin Level 3.8 3.5 - 5.0 g/dL [facility] Alkaline Phosphatase 80 39 - 117 U/L [facility] 05/17/2025 7:46 AM EDT 05/17/2025 7:50 AM EDT us Generic External Data Provider LAB BLOOD ORDERAB LES Final Result [facility] [address] [place] [phone] * Basic Metabolic Panel (05/17/2025 7:46 AM EDT) Sodium 142 135 - 145 mmol/L [facility] Potassium 4.6 3.3 - 5.1 mmol/L [facility] Chloride 107 96 - 108 mmol/L [facility] Carbon Dioxide 28 22 - 29 mmol/L [facility] Anion Gap 12 12 - 20 [facility] Urea Nitrogen (BUN) 15 9 - 16 mg/dL [facility] Creatinine, Serum 0.75 0.5 - 1.4 mg/dL [facility] Creatinine Clr Calc Pharmacy 77.1 [facility] Comment:Provided height and weight: 165.1 cm,65.771 kg.eGFR (calculated from the MDRD study equation) and eCrCl(calculated from the Cockcroft-Gault equation) are based ondifferent parameters and may not yield comparable results.If eCrCl result is absurd, please check patient'sheight/weight. Estimated Glomerular Filt Rate >60 [facility] Comment:Chronic Kidney Disea se: Estimated GFR < 60 mL/min/1.29u3Jeehaa Kidney Disease: Estimated GFR < 15 mL/min/1.73m2 Glucose 86 60 - 115 mg/dL [facility] Calcium 9.2 8.4 - 10.2 mg/dL [facility] 05/17/2025 7:46 AM EDT 05/17/2025 7:50 AM EDT us Generic External Data Provider LAB BLOOD ORDERAB LES Final Result Performing Organization Address City/State/[facility] Co de Phone Number [facility] [address] [place] [phone] * FL Esophagus Barium Swallow w/Air (04/18/2025 9:40 AM EDT) Anatomical Region Laterality Modality Head, Neck Radiographic Rachel ging 04/18/2025 9:40 AM EDT Narrative 04/18/2025 11:37 AM EDT [address] [address] Fluoroscopy Report Signed Patient: Karen Og MR#: [id number] 4 : 1970 Acct:[id number] Age/Sex: 54 / F ADM Date: 04/18/25 Loc: [facility] Attending Dr: Tammi Sorenson MD Ordering Physician: Tammi Burgess MD Date of Service: 04/18/25 Procedure(s): FL barium swallow with air Accession Number(s): [id number] cc: Tammi Burgess MD Reason for Exam: [...] 04/18/25 1134 DD/ 0940 TD/TT: 04/18/25 0949 Blueprint Cutter: Procedure Note Donotuseinterpreter, Image - 04/18/2025 [place] [address] Fluoroscopy Report Signed Patient: Karen Og MMR#: [id number] 4 : 1970Acct:[id number] Age/Sex: 54 / FADM Date: 04/18/25 Loc: HO.XRAY Attending Dr: Tammi Sorenson MD Ordering Physician: Tammi Burgess MD Date of Service: 04/18/25 Procedure(s): FL barium swallow with air Accession Number(s): [id number] cc: Tammi Burgess MD Reason for Exam: [...] 04/18/25 1134 DD/ 0940 TD/TT: 04/18/25 0949 Blueprint Cutter: us Tammi Sorenson MD IMG FLUOROSCOPY P ROCEDURES Final Result * Leukocytes Stool Qualitative (04/13/2025 10:00 AM EDT) Leukocytes Stool Qualitative NEGATIVE NEGATIVE [facility] Stool 04/13/2025 10:0 0 AM EDT 04/13/2025 4:48 PM EDT Shravan Dunne MD LAB BODY FLUIDS AND STOOLS ORDER JEROMY Final Result [facility] [address] [place] [address] [phone] * Stool - Gastrointestinal panel (04/13/2025 10:00 AM EDT) Campylobacter Not Detected Not Detect. [facility] Plesiomonas shigelloides Not Detected Not Detect. [facility] Salmonella Not Detected Not Detect. [facility] Vibrio Not Detected Not Detect. [facility] Vibrio cholerae Not Detected Not Detect. [facility] YERSINIA ENTEROCOLITICA Not Detected Not Detect. [facility] Enteroaggregative E. coli (EAEC) Not Detected Not Detect. [facility] Enteropathogenic E. coli (EPEC) Not Detected Not Detect. [facility] Enterotoxigenic E. coli (ETEC) lt/st Not Detected Not Detect. [facility] Shiga-like toxin-producing E. coli (STEC) stx1/stx2 Not Detected Not Detect. [facility] E coli O157 Not applicable Not Detect. [facility] Comment:E. coli containing t he O157 antigen are a subset ofShiga-like toxin- producing E. coli (STEC). Shigella/Enteroinvasive E. coli (EIEC) Not Detected Not Detect. [facility] Cryptosporidium Not Detected Not Detect. [facility] Cyclospora cayetanensis Not Detected Not Detect. [facility] Entamoeba histolytica Not Detected Not Detect. [facility] Giardia lamblia Not Detected Not Detect. [facility] Adenovirus F 40/41 Not Detected Not Detect. [facility] Astrovirus Not Detected Not Detect. [facility] Norovirus GI/GII Not Detected Not Detect. [facility] Rotavirus A Not Detected Not Detect. [facility] Sapovirus Not Detected Not Detect. [facility] Comment: All results must be [...] assay is performed by Multiplexed PCR, utilizing Runa Array. Stool Rectal contents / Unknown 04/13/2025 10:00 AM EDT 04/13/2025 4:48 PM EDT us Shravan Dunne MD LAB MICROBIOLOGY - GENERAL ORDER JEROMY Final Result [facility] [address] [place] [phone] * (ABNORMAL) Comprehensive Metabolic Panel (04/12/2025 10:09 AM EDT) Sodium 141 135 - 145 mmol/L [facility] Potassium 4.5 3.3 - 5.1 mmol/L [facility] Chloride 104 96 - 108 mmol/L [facility] Carbon Dioxide 30(H) 22 - 29 mmol/L [facility] Anion Gap 12 12 - 20 [facility] Urea Nitrogen (BUN) 15 9 - 16 mg/dL [facility] Creatinine, Serum 0.69 0.5 - 1.4 mg/dL [facility] Estimated Glomerular Filt Rate >60 [facility] Comment:Chronic Kidney Disea se: Estimated GFR < 60 mL/min/1.81m3Jecfmo Kidney Disease: Estimated GFR < 15 mL/min/1.73m2 Glucose 93 60 - 115 mg/dL [facility] Calcium 9.2 8.4 - 10.2 mg/dL [facility] Bilirubin, Total 0.3 0.0 - 1.0 mg/dL [facility] Aspartate Amino Transferase 23 5 - 31 U/L [facility] Alanine Aminotransferase 11 0 - 31 U/L [facility] Total Protein 6.9 6.5 - 8.0 g/dL [facility] Albumin Level 3.8 3.5 - 5.0 g/dL [facility] Alkaline Phosphatase 66 39 - 117 U/L [facility] Blood Venous blood specimen / Unknown 04/12/2025 10:09 AM EDT 04/12/2025 11:14 AM EDT us Shravan Dunne MD LAB BLOOD ORDERABLES Final Resul t [facility] [address] [place] [phone] * BI Mammogram Screening Tomosynthesis Bilateral (02/27/2025 2:00 PM EDT) Anatomical Region Laterality Modality Breast Bilateral Mammography 02/27/2025 2:00 PM EDT Narrative 03/09/2025 8:24 AM EDT [address] [place] [address] Mammography Report Signed Patient: Karen Og MR#: [id number] 4 : 1970 Acct:[id number] Age/Sex: 54 / F ADM Date: 02/27/25 Loc: HO.MAMMO Attending Dr: Tammi Sorenson MD Ordering Physician: Tammi Burgess MD Re sults: 1Negative Date of Service: 02/27/25 Follow Up: 1 Year From Orig inal Mammogram Procedure(s): MM tomosynthesis screening BI Accession Number(s): [id number] cc: Tammi Burgess MD EXAMINATION: MM SCREENING [...] 03/09/25 0821 DD/ 1400 TD/TT: 02/27/25 1412 Blueprint Cutter: Procedure Note Donotuseinterpreter, Image - [facility]/09/[facility] [address] [place] [address] Mammography Report Signed Patient: Karen Og MMR#: [id number] 4 : 1970Acct:[id number] Age/Sex: 54 / FADM Date: 02/27/25 Loc: STEPHANIE Attending Dr: Tammi Sorenson MD Ordering Physician: Tammi Burgess sults: 1Negative Date of Service: 02/27/25Follow Up: 1 Year From Orig inal Mammogram Procedure(s): MM tomosynthesis screening BI Accession Number(s): [id number] cc: Tammi Burgess MD EXAMINATION: MM SCREENING [...] 03/09/25 0821 DD/ 1400 TD/TT: 02/27/25 1412 Blueprint Cutter: Tammi Sorneson MD IMG BI PROCEDURES Final Result * Hepatitis C Antibody with Reflex to HCV, RNA, Quantitative, Real-Time PCR (02/06/2025 10:04 AM EDT) Hepatitis C Antibody Nonreactive Nonreactive [facility] Comment:Antibodies to HCV no t detected; does not exclude early acuteHCV infection. Blood Venous blood specimen / Unknown 02/06/2025 10:04 AM EDT 02/06/2025 11:11 AM EDT us Tammi Sorenson MD LAB BLOOD ORDERAB LES Final Result [facility] [address] [place] [phone] [phone] * HIV-1/2 Antigen and Antibodies, Fourth Generation, with Reflexes (02/06/2025 10:04 AM EDT) HIV AB/AG Nonreactive Nonreactive [facility] Comment:HIV-1 p24 Ag and/or HIV-1/HIV-2 Ab not detected.A test result that is nonreactive does not exclude thepossibility of exposure to or infection with HIV-1 and/orHIV-2. Nonreactive results in this assay for individualswith prior exposure to HIV-1 and/or HIV-2 may be due toantigen and antibody levels that are below the limit ofdetection of this assay.The CREAT HIV Ag/Ab Combo assay result andsupplemental assay results should be interpreted inconjunction with the patient's clinical presentation,history and other laboratory results. If the results areinconsistent with clinical evidence, additional testing issuggested to confirm the result. Blood Venous blood specimen / Unknown 02/06/2025 10:04 AM EDT 02/06/2025 11:11 AM EDT us Tammi Sorenson MD LAB BLOOD ORDERAB LES Final Result [facility] [address] [place] [phone] * Hemoglobin A1c (02/06/2025 10:04 AM EDT) Hemoglobin A1c 5.5 <6.0 % [facility] Comment:Hemoglobin A1C Refer ence Range Adults: 4.8 - 6.0 % Non diabetic: < 6.0 % Goal: < 7.0 %Additional Action Suggested: > 8.0 %Note: Hemoglobin A1c results are invalid for patients with abnormal amounts of HbF. Blood transfusions may impact the HbA1c concentration in the patient sample. Estimated Average Glucose 111 mg/dL [facility] Comment:eAG = Estimated ave rage glucose which is %A1C expressed asaverage glucose, using the formula of the R8Z-SftnxbsLfpksmf Glucose study (ADAG), Diabetes Care, Vol.31,#8,Aug. 2007 Blood Venous blood specimen / Unknown 02/06/2025 10:04 AM EDT 02/06/2025 11:11 AM EDT Tammi Sorenson MD LAB BLOOD ORDERAB LES Final Result [facility] [address] [place] [phone] [phone] * Hm Colonoscopy (05/28/2022 1:55 PM EDT) us Historical Provider HEALTH MAINTENANCE Final Result * HPV E6/E7 RFLX JACOB 16 18/45 (08/15/2021 1:40 PM EST) Pathologist [facility] HPV 16 RNA [facility] HPV 18/45 RNA [facility] HPV E6 E7 ADD [facility] HPV mRNA E6/E7 rflx Not Detected Not Detected [facility] Comment: Methodology: Meteorologist Liaison-Mediated Amplification This assay detects E6/E7 viral messenger RNA (mRNA) from 14 high-risk HPV types (16,18,31,33,35,39,45,51,52,56,58,59,66,68). The analytical performance characteristics of this assay have been determined by [employer]. The modifications have not been cleared or approved by the FDA. This assay has been validated pursuant to the CLIA regulations and is used for clinical purposes. For additional information, please refer to http://education.[employer]/faq/YFF825p4 (This link if provided for information/ educational purposes only.) THIS TEST WAS PERFORMED AT: [email or web address] [address] [place] [address],[place] [phone] AMY BLANCAS MD 08/15/2021 1:40 PM EST us Historical Provider HISTORICAL/NON ORDERABLE LABS Final Result [facility] [address] * THINPREP PAP (01/11/2021 11:51 AM [...] along with historic and current clinical information. Astronaut Mission Specialist : [facility] Comment: GSG, CT(ASCP) CT screening location: [place] [address] Interpretation/R esult: Negative for intraepithelial lesion or [...] PATHOLOGY ORDERABLES Final Result Performing Organization Address City/State/[facility] Co de Phone Number [facility] [address] from Last 3 Months or Most Recently Relevant to Health Maintenance Insurance [facility] C3 DENTAL-[facility] MEDICAID STAND ADULT DENTAL - HSN FULL (MEDICAID) Care Teams Flap Lining Binder Relationship Specialty Start Date End Date Tammi Burgess MD [address] [place] [address] PCP - General Internal Medicine 04/13/23
--- OUTSIDE RECORDS SUMMARY | 2025-06-21 12:52 | XMS_ITS | Encounter Summary ---
Author Organization [employer] Address [address] [facility] 7 [place] [address] Care Team Providers Care Oleomargarine Maker Name Role Phone Tammi Burgess MD Primary Care Pro vider Reason for Visit * Reason Comments Pre-visit Planning Pre-visit planning - LVM Encounter Details Date Type Department Care Team ([facility] st Contact Info) Description 06/20/2025 Patient Outreach [facility] [address] [place] [address] Tammi Burgess MD [address] [place] [address] Pre-visit Planning (Pre-visit planning - LVM ) Social History Tobacco Use Types Packs/Day Years [...] as of this encounter Progress Notes * Susan Kraus - 06/20/2025 10:17 AM EST SHANEKA Luz placed outbound call to patient to complete pre-visit planning. No answer at this time. Patient name and were not confirmed. CC left voicemail requesting return call. Direct contact information provided. documented in this encounter Plan of Treatment Upcoming Encounters Date Type Department Care Team (Late st Contact Info) Description 06/29/2025 9:30 AM EST Office Visit [facility] [address] [place] [phone] Tammi Burgess MD [address] [place] [address] 08/01/2025 9:30 AM EST Office Visit [facility] ADULT DENTAL [address] [place] [address] Bozena Rader [address] [place] [address] documented as of this encounter Visit Diagnoses Not on filedocumented in this encounter Additional Health Concerns Assessment Noted Time PHQ-9 Depression Total Score: 8 12/27/19 25 3:12 PM EDT documented as of this encounter Care Teams Oleomargarine Maker Relationship Specialty Start Date End Date Tammi Burgess MD [address] [place] [phone] PCP - General Internal Medicine 04/13/23 documented as of this encounter
== END 2025-06-21 11:08 | disposition home or self-care (01) ==
LOC: HO.HOS 10:40
PROVIDERS: PCP Student in an Organized Health Care Education/Training Program; Visit Provider Orthopaedic Surgery
DX: M17.11 Unilateral primary osteoarthritis, right knee (principal)
CPT/HCPCS: 20610

== ENCOUNTER → 2025-06-21 10:39 | Outpatient (BNVA) | payer MEDICAID, SELFPAY | PROVIDERS: PCP Student in an Organized Health Care Education/Training Program; Visit Provider Orthopaedic Surgery | DX: M17.11 Unilateral primary osteoarthritis, right knee (principal) | CPT/HCPCS: 20610; J2003; J7318 ==

== ENCOUNTER 2025-06-29 10:06 | Outpatient (REF) | payer MEDICAID, SELFPAY ==
--- OUTSIDE RECORDS SUMMARY | 2025-06-29 09:30 | XMS_ITS | Encounter Summary ---
Author Organization [employer] Address [address] [facility] 7t [place] [address] Care Team Providers Care Relationship Management Lead Name Role Phone Tammi Burgess MD Primary Care Pro vider Encounter Details Date Type Department Care Team ([facility] st Contact Info) Description 06/29/2025 9:30 AM EST Office Visit [facility] [address] [place], [place] [phone] Tammi Burgess MD [address] [place] [address] Eosinophilia, unspecified type (Primary Dx) Social History [...] Sign Reading Time Taken Comments Blood Pressure 108/66 06/29/2025 9:34 AM EST Pulse 78 06/29/2025 9:34 AM EST Temperature 36.2 C (97.1 F) 06/29/2025 9:34 AM EST Respiratory Rate 20 06/29/2025 9:34 AM EST Oxygen Saturation - - Inhaled Oxygen Concentration - - Weight 74.5 kg (164 lb 3.2 oz) 06/29/2025 9:34 A M EST Height 158.8 cm (5' 2.5 ) 06/29/2025 9:34 AM EST Body Mass Index 29.55 06/29/2025 9:34 AM EST documented in this encounter Plan of Treatment Upcoming Encounters Date Type Department Care Team (Late st Contact Info) Description 08/01/2025 9:30 AM EST Office Visit [facility] ADULT DENTAL [address] [place] [address] Prasanth, Bozena [address] [place] [address] Scheduled Orders Name Type Priority Associated Diagnoses Orde r Schedule IgE Antibody (Anti-IgE IgG) Lab Routine Eosinophilia, unspecified type Expected: 06/29/2025 (Approximate), Expires: 06/29/2026 documented as of this encounter Procedures Procedure Name Priority Date/Time Associated Diagnosis Comments CBC WITH AUTO DIFFERENTIAL Routine 06/29/2025 10:16 AM EST Eosinophilia, unspecified type documented in this encounter Results * (ABNORMAL) CBC auto differential (06/29/2025 10:16 AM EST) White Blood Count 5.3 4.8 - 10.8 X10*3/uL [facility] Red Blood Count 3.87(L) 4.20 - 5.50 X10*6/uL [facility] Hemoglobin 11.9(L) 12.0 - 16.0 g/dl [facility] Hematocrit 37.7 37.0 - 47.0 % [facility] Mean Corpuscular Volume 97.4 80.0 - 98.0 fL [facility] Mean Corpuscular Hemoglobin 30.7 27.0 - 33.0 pg [facility] Mean Corpuscular HGB Conc 31.6 31.0 - 35.0 g/dl [facility] Red Cell Distribution Width 13.7 11.0 - 16.0 % [facility] Platelet Count 221 160 - 400 X10*3/uL [facility] Mean Platelet Volume 9.9 9.4 - 12.3 fL [facility] Neutrophils Percent Auto 58.6 45 - 73 % [facility] Imm Gran Pct Auto 0.6(H) 0.0 - 0.4 % [facility] Lymphocytes Percent Auto 22.9 20 - 40 % [facility] Monocytes Percent Auto 9.8 2 - 11 % [facility] Eosinophils Percent Auto 7.5(H) 0 - 4 % [facility] Basophils Percent Auto 0.6 0 - 2 % [facility] NRBC Pct Auto 0.0 0.0 - 0.2 /100WBC [facility] Neutrophils Absolute Auto 3.1 2.0 - 8.3 x10*3/uL [facility] Imm Gran Abs Auto 0.03 0.00 - 0.03 X10*3/uL [facility] Lymphocytes Absolute Auto 1.2 1.2 - 4.9 X10*3/uL [facility] Monocytes Absolute Auto 0.5 0.1 - 1.2 X10*3/uL [facility] Eosinophils Absolute Auto 0.4 0.0 - 0.4 X10*3/uL [facility] Basophils Absolute Auto 0.0 0.0 - 0.2 X10*3/uL [facility] NRBC Abs Auto 0.000 0.0 - 0.012 X10*3/uL [facility] Blood Venous blood specimen / Unknown 06/29/2025 10:16 AM EST 06/29/2025 11:09 AM EST us Tammi Sorenson MD LAB BLOOD ORDERAB LES Final Result [facility] [address] [place] [phone] [phone] documented in this encounter Visit Diagnoses Diagnosis Eosinophilia, unspecified type- Primary documented in this encounter Additional Health Concerns Assessment Noted Time PHQ-9 Depression Total Score: 8 12/27/19 25 3:12 PM EDT documented as of this encounter Care Teams Relationship Management Lead Relationship Specialty Start Date End Date Tammi Burgess MD [address] [place] [address] PCP - General Internal Medicine 04/13/23 documented as of this encounter
[2025-06-29 11:12] LABS: MANUAL DIFF FLAG NO
[2025-06-29 11:20] LABS: Hematocrit 37.7 % (37.0-47.0); Hemoglobin 11.9 g/dl (12.0-16.0); Imm Gran Abs Auto 0.03 X10*3/uL (0.00-0.03); Imm Gran Pct Auto 0.6 % (0.0-0.4); Lymphocytes Absolute Auto 1.2 X10*3/uL (1.2-4.9); Mean Corpuscular HGB Conc 31.6 g/dl (31.0-35.0); Mean Corpuscular Hemoglobin 30.7 pg (27.0-33.0); Mean Corpuscular Volume 97.4 fL (80.0-98.0); NRBC Abs Auto 0.000 X10*3/uL (0.0-0.012); NRBC Pct Auto 0.0 /100WBC (0.0-0.2); Platelet Count 221 X10*3/uL (160-400); Red Blood Count 3.87 X10*6/uL (4.20-5.50); White Blood Count 5.3 X10*3/uL (4.8-10.8)
--- OUTSIDE RECORDS SUMMARY | 2025-06-29 11:59 | XMS_ITS | Encounter Summary ---
Author Organization [employer] Address [address] [facility] 7t [place] [address] Care Team Providers Care Supervisor Tower Name Role Phone Tammi Burgess MD Primary Care Pro vider Reason for Visit * Reason Comments Med Refill Encounter Details Date Type Department Care Team (Late st Contact Info) Description 08/11/2024 Refill [facility] MED[facility]INE [address] [place] [address] aTmmi Burgess MD [address] [place], [place] [phone] Social History Tobacco Use Types Packs/Day Years [...] Description 08/01/2025 9:30 AM EST Office Visit [facility] ADULT DENTAL [address] [place] [address] Bozena Rader [address] [place] [address] documented as of this encounter Visit Diagnoses Not on filedocumented in this encounter Additional Health Concerns Assessment Noted Time PHQ-9 Depression Total Score: 5 10/20/19 24 10:39 AM EDT documented as of this encounter Care Teams Supervisor Tower Relationship Specialty Start Date End Date Tammi Burgess MD [address] [place] [address] PCP - General Internal Medicine 04/13/23 documented as of this encounter
--- OUTSIDE RECORDS SUMMARY | 2025-06-29 11:59 | XMS_ITS | Encounter Summary ---
Author Organization [employer] Address [address] [facility] 7t [place] [address] Care Team Providers Care Clinical Research Physician Name Role Phone Tammi Burgess MD Primary Care Pro vider Encounter Details Date Type Department Care Team ([facility] st Contact Info) Description 07/18/2024 Orders Only [facility] [address] [place] [address] ProviderChata MD Social History Tobacco Use Types [...] 1:55 PM EST Pelvic US ordered by BILLET SAWYER. Patient to fu results with BILLET SAWYER (Dr Espinoza). documented in this encounter Plan of Treatment Upcoming Encounters Date Type Department Care Team (Late st Contact Info) Description 08/01/2025 9:30 AM EST Office Visit [facility] ADULT DENTAL [address] [place] [address] Prasanth, Bozena [address] [place] [address] documented as of this encounter Procedures Procedure [...] PM EST Narrative 08/09/2024 10:56 AM EST [address] [address] Magnetic Resonance Report Signed Patient: Karen Og MR#: [id number] 4 : 1970 Acct:[id number] Age/Sex: 54 / F ADM Date: 08/07/24 Loc: HO.MRI Attending Dr: Keyon Bowles MD Ordering Physician: Keyon Bowles MD Date of Service: 08/07/24 Procedure(s): MR knee LT wo con Accession Number(s): [id number] cc: Tammi Burgess MD; Keyon Bowles MD [...] Novak MD in OV> 08/09/24 1053 DD/ 9548 TD/TT: 08/07/24 1507 Brick Tester: Procedure Note Donotuseinterpreter, Image - 08/09/[address] [address] Magnetic Resonance Report Signed Patient: Karen Og MMR#: [id number] 4 : 1970Acct:[id number] Age/Sex: 54 / FADM Date: 08/07/24 Loc: HO.MRI Attending Dr: Keyon Bowles MD Ordering Physician: Keyon Bowles MD Date of Service: 08/07/24 Procedure(s): MR knee LT wo con Accession Number(s): [id number] cc: Tammi Burgess MD; Keyon Bowles MD [...] 08/09/24 1053 DD/ 1458 TD/TT: 08/07/24 1507 Brick Tester: us [facility] External Provider IMG MRI PROCEDURES Final Result * US Pelvis Transvaginal (08/02/2024 4:26 PM EST) Anatomical Region Laterality Modality Pelvis Ultrasound 08/02/2024 4:26 PM EST Narrative 08/02/2024 4:27 PM EST [place] [address] Ultrasound Report Signed Patient: Karen Og MR#: [id number] 4 : 1970 Acct:[id number] Age/Sex: 54 / F ADM Date: 08/01/24 Loc: HO.US Attending Dr: Juan Espinoza MD Ordering Physician: Juan Espinoza MD Date of Service: 08/01/24 Procedure(s): US pelvic and transvaginal Accession Number(s): [id number] cc: Tammi Burgess MD; Juan Espinoza MD CLINICAL HISTORY: D25.9 - Leiomyoma of uterus, unspecified US pelvis transabdominal and transvaginal Comparison: US/GA/SR - US PELVIC AND TRANSVAGINAL - 09/28/23 [...] in OV> 08/02/241625 DD/ 25 TD/TT: 08/02/241625 Brick Tester: Procedure Note Donotuseinterpreter, Image - 08/02/2024 [place] [address] Ultrasound Report Signed Patient: Karen Og [facility]#: [id number] 4 : 1970Acct:[id number] Age/Sex: 54 / FADM Date: 08/01/24 Loc: HO.US Attending Dr: Juan Espinoza MD Ordering Physician: Juan Espinoza MD Date of Service: 08/01/24 Procedure(s): US pelvic and transvaginal Accession Number(s): [id number] cc: Tammi Burgess MD; Juan Espinoza MD CLINICAL HISTORY: D25.9 - Leiomyoma of uterus, unspecified US pelvis transabdominal and transvaginal Comparison: US/GA/SR - US PELVIC AND TRANSVAGINAL - 09/28/23 [...] by Yeni Hutchison MD in OV> 08/02/24 162 DD/ 162 TD/TT: 08/02/241625 Brick Tester: [facility] External Provider IMG US PROCEDURES Final Result * Hm Colonoscopy (05/28/2022 1:55 PM EDT) Historical Provider HEALTH MAINTENANCE Final Result documented in this encounter Visit Diagnoses Not on filedocumented in this encounter Additional Health Concerns Assessment Noted Time PHQ-9 Depression Total Score: 5 10/20/19 24 10:39 AM EDT documented as of this encounter Care Teams Clinical Research Physician Relationship Specialty Start Date End Date Tammi Burgess MD [address] [place] [phone] PCP - General Internal Medicine 04/13/23 documented as of this encounter
--- OUTSIDE RECORDS SUMMARY | 2025-06-29 11:59 | XMS_ITS | Encounter Summary ---
Author Organization [employer] Address [address] [place] [address] 7 [place] [address] Care Team Providers Care Electronic Lab Technician Name Role Phone Charito Lawrence CLOCK MAKER Primary Care Provider Tammi Downs MD Primary Care Pro vider Encounter Details Date Type Department Care Team (Late st Contact Info) Description 03/31/2023 Abstract [facility] ADULT DENTAL [address] [place] [address] Jamey Hussein, DMD [address] [place] [address] Social History Tobacco Use Types Packs/Day Years [...] Description 08/01/2025 9:30 AM EST Office Visit [facility] ADULT DENTAL [address] [place] [address] Bozena Rader [address] [place] [address] documented as of this encounter Visit Diagnoses Not on filedocumented in this encounter Care Teams Electronic Lab Technician Relationship Specialty Start Date End Date Charito Lawrence FNP PCP - General Family Medicine 05/17/21 04/12/23 Tammi Burgess MD [address] [place] [phone] PCP - General Internal Medicine 04/13/23 documented as of this encounter
--- OUTSIDE RECORDS SUMMARY | 2025-06-29 11:59 | XMS_ITS | Clinical Summary ---
Author Organization [employer] Address [address] [place] [address] 7[address] [place] [address] Care Team Providers [employer] Name Role Phone Tammi Burgess MD Primary Care Pro vider Allergies Active Allergy Reactions Criticality Noted Date Comments Aspirin Itching 10/06/2022 Tolerated NSAIDS w no problem Medications triamcinolone (Kenalog) 0.1 % creamIndications :Rash of [...] times daily. 60 capsule 12/21/19 25 Active lidocaine (Lidoderm) 5 % patch APPLY 1 PATCH TOPICALLY TO SKIN, LEAVE ON FOR 12 HOURS AND OFF FOR 12 HOURS DIRECTED 30 patch 2 03/10/20 25 Active Diclofenac Sodium 1 % gelIndications:L ow back pain associated with a spinal disorder other than radiculopathy or spinal stenosis APPLY TO THE AFFECTED AREA(S) FOUR TIMES DAILY NEEDED 100 g 2 03/10/20 25 Active Acetaminophen Extra Strength 500 MG tablet TAKE 1 TABLET BY MOUTH EVERY 6 HOURS NEEDED FOR MILD PAIN 30 tablet 04/05/20 25 Active Trisha-Lanta 200-200-20 MG/5ML oral suspensionIndica tions:Epigastric pain TAKE 30 ML BY MOUTH BEFORE BREAKFAST, BEFORE LUNCH, BEFORE SUPPER, AND AT BEDTIME 1680 mL 05/25/20 Active famotidine (Pepcid) 20 MG tablet TAKE 1 TABLET BY MOUTH ONCE DAILY 90 tablet 06/27/20 Active pantoprazole (ProtoNix) 40 MG EC tablet TAKE 1 TABLET BY MOUTH EVERY DAY IN THE MORNING ON AN EMPTY STOMACH 30 MINUTES BEFORE A MEAL 05/29/20 Active celecoxib (CeleBREX) 200 MG capsule TAKE 1 CAPSULE BY MOUTH EVERY DAY NEEDED FOR PAIN 12/21/19 025 Discontinued(O ther) fish oil (fish oil) 1000 MG capsule Take 1 capsule (1,000 mg) by mouth Once per day. 90 capsule 1 03/02/20 025 Discontinued(O ther) pregabalin (Lyrica) 25 MG capsule TAKE 1 CAPSULE BY MOUTH TWICE DAILY 60 capsule 1 5 10:32 AM EST 05/03/20 025 Discontinued(O ther) ondansetron (Zofran) 4 MG tablet Take 1 tablet (4 mg) by mouth every 8 (eight) hours if needed for nausea or vomiting for up to 20 days. 20 tablet 05/17/20 famotidine (Pepcid) 20 MG tablet Take 1 tablet (20 mg) by mouth Once per day. 30 tablet 05/17/20 025 Discontinued omeprazole (PriLOSEC) [address] capsuleIndicatio ns:Epigastric pain TAKE 1 CAPSULE BY MOUTH TWICE DAILY, BEFORE BREAKFAST AND BEFORE SUPPER. DO NOT BREAK, CRUSH, DISSOLVE OR CHEW. 180 capsule 05/25/20 025 Discontinued(O ther) Active Problems Problem Noted Date Diagnosed Date [...] cancer: Never smoker Eye: 02/2023 WNL at [facility] Dental: up to date Hernia of [...] Encounters Date Type Department Care Team Description 06/29/2025 9:30 AM EST Office Visit [address] [address] Tammi Burgess MD Eosinophilia, unspecified type (Primary Dx) 06/29/2025 Travel 06/28/2025 Telephone [facility] MED[facility] [address] [place] [phone] Tammi Burgess MD chart prep 06/26/2025 Refill [facility] [address] [place] [phone] Tammi Burgess MD 06/20/2025 Patient Outreach [address] [address] Tammi Burgess MD Pre-visit Planning (Pre-visit planning - LVM ) 06/06/2025 Orders Only GENERIC EXTERNAL DATA DEPARTMENT Provider, Generic External Data 05/29/2025 Orders Only GENERIC EXTERNAL DATA DEPARTMENT Provider, Generic External Data 05/27/2025 Orders Only GENERIC EXTERNAL DATA DEPARTMENT Provider, Generic External Data 05/25/2025 Results Follow-Up [facility] [address] [place] [phone] Stephani Crystal RN Ova and Parasites, Strongyloides Antibody (IgG) 05/23/2025 Refill [facility] [address] [address] Tammi Eldridge MD Epigastric pain 05/19/[address] [address] Tammi Burgess MD Medication Question 05/17/2025 Orders Only [facility] [address] [place] [phone] Tammi Burgess MD Eosinophilia, unspecified type (Primary Dx) 05/17/2025 Orders Only GENERIC EXTERNAL DATA DEPARTMENT Provider, Generic External Data 05/03/2025 Refill [facility] [address] [place] [phone] Tammi Burgess MD 04/28/2025 10:20 AM EDT Office Visit [facility] [address] [place] [phone] Tammi Eldridge MD Epigastric pain 04/28/2025 Travel 04/17/2025 1:40 PM EDT Office Visit [facility] [address] [place] [phone] Kristal San ANP Rash (Primary Dx) 04/17/2025 Travel 04/14/2025 Results Follow-Up [facility] [address] [place] [address] Shravan Dunne MD Leukocytes Stool Qualitative, Stool - Gastrointestinal panel, CBC auto differential, Comprehensive Metabolic Panel 04/12/2025 Orders Only [facility] [address] [place] [address] [phone] Shravan Dunne MD 04/11/2025 7:20 PM EDT Office Visit [facility] WALK-IN [address] [address] Shravan Dunne MD Epigastric pain (Primary Dx) 04/11/2025 Travel 04/04/2025 Refill [facility] [address] [place], [place] [phone] Tammi Burgess MD from Last 3 Months [...] 20 06/29/2025 9:34 AM EST Oxygen Saturation 96% 04/28/2025 10:19 AM EDT Inhaled Oxygen Concentration - - Weight 74.5 kg (164 lb 3.2 oz) 06/29/2025 9:34 A M EST Height 158.8 cm (5' 2.5 ) 06/29/2025 9:34 AM EST Body Mass Index 29.55 06/29/2025 9:34 AM EST Plan of Treatment Upcoming Encounters Date Type Department Care Team (Late st Contact Info) Description 08/01/2025 9:30 AM EST Office Visit [facility] ADULT DENTAL [address] [place] [address] Ole Raderaris [address] [place] [address] Health Maintenance Due Date Last Done Comments CT Colonography 1970 FIT DNA/Cologuard 1970 FIT 1970 FOBT 1970 Sigmoidoscopy 1970 Pneumococcal Vaccine: 50+ Years (1 of 1 - PCV) 2020 Dental Oral Exam 09/18/2024 03/17/2024, , 07/28/2018 Dental X-Ray: Bitewings 12/15/2024 12/15/19 24, 02/19/2023, 07/28/2018 COVID-19 Vaccine ( season) 2025 10/29/2021, 11/02/2020 Influenza Vaccine (#1) 2025 07/28/2018 Dental Prophylaxis 06/24/2025 12/21/2024, 1 08/17/2023, 12/15/2023, Additional history exists SDOH Screening 12/16/2025 12/16/2024 Depression Screening 12/26/2025 12/26/2024, 12/27/19 25 Disability Screening 12/26/2025 12/26/2024 Cervical Cancer Screening 01/11/2026 Pap Smear 01/11/2026 01/11/2021 Diabetes: Hemoglobin A1C 02/06/2026 025, 12/26/2024, 12/05/2023, Additional history exists Dental X-Ray: Full Mouth 02/20/2026 02/19/2023, 08/2018 Alcohol/Substance Use Screening 06/29/2026 06/29/2025 Tobacco Screening 06/29/2026 06/29/2025 HPV/Cotest 08/15/2026 08/15/2021, 07/28, 01/11/2021, Additional history [...] 06/29/2025 10:16 AM EST Eosinophilia, unspecified type HEMATOXYLIN AND EOSIN STAIN Routine 06/06/2025 1:17 [...] Recently Relevant to Health Maintenance Results * (ABNORMAL) CBC auto differential (06/29/2025 10:16 AM EST) Only the most recent of3 resultswithin the time period is included. White Blood Count 5.3 4.8 - 10.8 X10*3/uL [facility] Red Blood Count 3.87(L) 4.20 - 5.50 X10*6/uL [facility] Hemoglobin 11.9(L) 12.0 - 16.0 g/dl [facility] Hematocrit 37.7 37.0 - 47.0 % [facility] Mean Corpuscular Volume 97.4 80.0 - 98.0 fL [facility] Mean Corpuscular Hemoglobin 30.7 27.0 - 33.0 pg [facility] Mean Corpuscular HGB Conc 31.6 31.0 - 35.0 g/dl [facility] Red Cell Distribution Width 13.7 11.0 - 16.0 % [facility] Platelet Count 221 160 - 400 X10*3/uL [facility] Mean Platelet Volume 9.9 9.4 - 12.3 fL [facility] Neutrophils Percent Auto 58.6 45 - 73 % [facility] Imm Gran Pct Auto 0.6(H) 0.0 - 0.4 % [facility] Lymphocytes Percent Auto 22.9 20 - 40 % [facility] Monocytes Percent Auto 9.8 2 - 11 % [facility] Eosinophils Percent Auto 7.5(H) 0 - 4 % [facility] Basophils Percent Auto 0.6 0 - 2 % [facility] NRBC Pct Auto 0.0 0.0 - 0.2 /100WBC [facility] Neutrophils Absolute Auto 3.1 2.0 - 8.3 x10*3/uL [facility] Imm Gran Abs Auto 0.03 0.00 - 0.03 X10*3/uL [facility] Lymphocytes Absolute Auto 1.2 1.2 - 4.9 X10*3/uL [facility] Monocytes Absolute Auto 0.5 0.1 - 1.2 X10*3/uL [facility] Eosinophils Absolute Auto 0.4 0.0 - 0.4 X10*3/uL [facility] Basophils Absolute Auto 0.0 0.0 - 0.2 X10*3/uL [facility] NRBC Abs Auto 0.000 0.0 - 0.012 X10*3/uL [facility] Blood Venous blood specimen / Unknown 06/29/2025 10:16 AM EST 06/29/2025 11:09 AM EST us Tammi Sorenson MD LAB BLOOD ORDERAB LES Final Result [facility] [address] [place] [phone] * Hematoxylin and Eosin Stain (06/06/2025 1:17 PM EST) 06/06/2025 1:17 PM EST 06/06/2025 1:50 PM EST Narrative [facility] - 06/08/2025 2:58 PM EST ----- ------- Name: Earle SpannKaren Alexa Age/Sex: 54/F : 1970 Unit#: [id number] Attend Dr: Julissa Brush MD Re06/06/25 Status: [facility] [place]: [facility] Disch: ----- ------- SPEC : [id number] RECD: 06/06/25 STATUS: KETURAH DOTY NUM: [id number] MORGAN: 06/06/[address] [facility] [address]: Julissa Brush MD ENTERED: 06/06/25140 SP TYPE: Surgical OTHR DR: Tammi Burgess MD ORDERED: HE Stain/12, Gross Micro L4/5, IHC, Special st. 2/, H. pylori, AB/PAS/3 Diagnosis A. Duodenum, biopsy: [...] ON NEXT PAGE ----- ------- Name: Karen Loew Age/Sex: 54/F : 1970 Unit#: [id number] Attend Dr: Julissa Brush MD Re06/06/25 Status: [facility] Location: [facility] Disch: ----- ------- SPEC : [id number] RECD: 06/06/25-1350 STATUS: [facility] NUM: [id number] MORGAN: 06/06/25-[address] [facility] [address]: Julissa Brush MD ENTERED: 06/06/25-1401 SP [...] developed and their performance characteristics determined by [facility]. They have not been cleared or approved by the U.S. Food and Drug Administration (FDA). However, the FDA has determined that such clearance or approval is not necessary. This laboratory is certified under the Clinical Laboratory Improvement Amendments of 1988 (CLIA) as qualified to perform high complexity clinical laboratory testing. Copies To: Julissa Brush MD [facility] [address] [place] [phone] Tammi Burgess MD [facility] [address] [place] [address] ----- ------- Signed (signature on file) Slick Diaz MD 06/08/25 1458 ----- ------- END OF REPORT us Generic External Data Provider LAB BLOOD ORDERAB LES Final Result [facility] [address] [place] [phone] * (ABNORMAL) Disaccharidases (06/06/2025 1:10 PM EST) Lactase 6.9(A) 15.0 - 45.5 [facility] Comment:Result Units: uM/min /g prot Sucrase 76.1(A) 25.0 - 69.9 [facility] Comment:Result Units: uM/min /g prot Maltase 229.7(A ) 100.0 - 224.4 [facility] Comment:Result Units: uM/min /g prot Palatinase 20.9 5.0 - 26.3 [facility] Comment:Result Units: uM/min /g protThis test was developed and its analytical performancecharacteristics have been determined by [employer].It has not been cleared or approved by the FDA. This assayhas been validated pursuant to the CLIA regulations and isused for clinical purposes.THIS TEST WAS PERFORMED AT:[employer]/TORO [id number] SARY LOPEZ [id number] JOHNSTON MD,PHD,ESTHER 06/06/2025 1:10 PM EST 06/06/2025 1:23 PM EST Generic External Data Provider LAB CYTOLOGY ORDE RABLES Final Result Performing Organization Address [facility]/ZIP Co de Phone Number [facility] [address] [place] [phone] * Valproic Acid Total (05/29/2025 12:35 PM EST) Valproate 97.8 50.0 - 100.0 mcg/mL [facility] 05/29/2025 12:3 5 PM EST 05/29/2025 12:47 PM EST Generic External Data Provider LAB BLOOD ORDERAB LES Final Result Performing Organization Address [facility] Co de Phone Number [facility] [address] [place] [phone] * Calprotectin, Stool (05/29/2025 10:27 AM EST) Calprotectin,Fecal 115 mcg/g [facility] Comment:Reference Range: <50 Normal 50-120 Borderline >120 ElevatedCalprotectin in Crohn's disease and ulcerative colitis canbe five to several thousand times above the referencepopulation (50 mcg/g or less). Levels are usually 50 mcg/gor less in healthy patients and with irritable bowelsyndrome. Repeat testing in 4-6 weeks is suggested forborderline values.THIS TEST WAS PERFORMED AT:[employer] [id number] [place] [address]ATJIOMARY JOHNSTON MD,PHD,ESTHER 05/29/2025 10:2 7 AM EST 05/29/2025 12:23 PM EST Generic External Data Provider LAB BODY FLUIDS A ND STOOLS ORDERABLES Final Result Performing Organization Address [facility] de Phone Number [facility] [address] [place] [phone] * Helicobacter pylori??Antigen, EIA, Stool (05/29/2025 10:27 AM EST) Only the most recent of2 resultswithin the time period is included. H pylori Ag Stool SEE NOTE [facility] Comment:HELICOBACTER PYLORI AG, EIA, STOOL Micro Number: [id number] Test Status: Final Specimen Source: Stool Specimen Quality: Adequate H.pylori Ag: Not Detected Antimicrobials, proton pump inhibitors, and bismuth preparations inhibit H. pylori and ingestion up to two weeks prior to testing may cause false negative results. If clinically indicated the test should be repeated on a new specimen obtained two weeks after discontinuing treatment. Reference Range: Not DetectedTHIS TEST WAS PERFORMED AT:[employer] [place] [id number] BLANCAS MD 05/29/2025 10:2 7 AM EST 05/29/2025 12:23 PM EST Generic External Data Provider LAB BODY FLUIDS A ND STOOLS ORDERABLES Final Result Performing Organization Address [facility] de Phone Number [facility] [address] [place] [phone] * Tissue Transglutaminase Antibody, IgA (05/27/2025 9:27 AM EDT) Transglutaminase IgA <1.0 U/mL [facility] Comment:Value Interpretation ----- <15.0 Antibody not detected> or = 15.0 Antibody detectedTHIS TEST WAS PERFORMED AT:[employer] [place] [id number] BLANCAS MD 05/27/2025 9:27 AM EDT 05/27/2025 9:27 AM EDT Generic External Data Provider LAB BLOOD ORDERAB LES Final Result Performing Organization Address [facility]/ZIP Co de Phone Number [facility] [address] [place] [phone] * (ABNORMAL) C-reactive Protein (05/27/2025 9:27 AM EDT) C Reactive Protein 0.72(H) < or = 0.50 mg/dL [facility] 05/27/2025 9:27 AM EDT 05/27/2025 9:27 AM EDT Generic External Data Provider LAB BLOOD ORDERAB LES Final Result Performing Organization Address [facility] Co de Phone Number [facility] [address] [place] [phone] * Lipase (05/27/2025 9:27 AM EDT) Only the most recent of2 resultswithin the time period is included. Lipase 34 8 - 78 U/L [facility] 05/27/2025 9:27 AM EDT 05/27/2025 9:27 AM EDT Generic External Data Provider LAB BLOOD ORDERAB LES Final Result Performing Organization Address [facility] Co de Phone Number [facility] [address] [place] [phone] * Amylase (05/27/2025 9:27 AM EDT) Amylase 47 28 - 100 U/L [facility] 05/27/2025 9:27 AM EDT 05/27/2025 9:27 AM EDT us Generic External Data Provider LAB BLOOD ORDERAB LES Final Result Performing Organization Address [facility] Co de Phone Number [facility] [address] [place] [phone] * Ova and Parasites (05/24/2025 11:22 AM EDT) Only the most recent of3 resultswithin the time period is included. Ova and Parasite Trichrome SEE NOTE [facility] Comment: OVA AND PARASITES, CONC AND PERM SMEAR Micro Number: [id number] Test Status: Final Specimen Source: Stool Specimen [...] infection. For additional information, please refer to https://education.[employer]/faq/XWO228 (This link is being provided for informational/ educational purposes only.)THIS TEST WAS PERFORMED AT:[employer] [address] [id number] JUDSON,MD Stool Rectal contents / Unknown 05/24/2025 11:22 AM EDT 05/24/2025 4:16 PM EDT us Tammi oSrenson MD LAB MICROBIOLOGY - GENERAL ORDERABLES Final Result Performing Organization Address City/[facility]/ZIP Co de Phone Number [facility] [address] [place] [phone] * Strongyloides Antibody (IgG) (05/18/2025 9:31 AM EDT) Strongyloides Antibody IgG NEGATIVE [facility] Comment:REFERENCE RANGE: NEG ATIVEStrongyloides stercoralis is a parasiticNematode found in tropical and subtropicalregions. Because of low larval densities infeces, stool examination is a relativelyinsensitive diagnostic test; antibody detectionoffers increased sensitivity. Patients withlatent infections who are immunosuppressed orreceiving immunosuppressive therapy are at riskof life- threatening hyperinfection. Significantcrossreactivity may be observed in otherhelminth infections.THIS TEST WAS PERFORMED AT:[employer] [id number] [place] [address]PVJKOMARY JOHNSTON MD,PHD,ESTHER Blood Venous blood specimen / Unknown 05/18/2025 9:31 AM EDT 05/18/2025 11:42 AM EDT us Tammi Sorenson MD LAB BLOOD ORDERAB LES Final Result Performing Organization Address [facility] Co de Phone Number [facility] [address] [place] [phone] * Slide Review (05/17/2025 7:46 AM EDT) Only the most recent of2 resultswithin the time period is included. Slide Review VERIFIED [facility] 05/17/2025 7:46 AM EDT 05/17/2025 7:50 AM EDT us Generic External Data Provider LAB BLOOD ORDERAB LES Final Result Performing Organization Address [facility] Co de Phone Number [facility] [address] [place] [phone] * Magnesium (05/17/2025 7:46 AM EDT) Magnesium 2.0 1.6 - 2.6 mg/dL [facility] 05/17/2025 7:46 AM EDT 05/17/2025 7:50 AM EDT us Generic External Data Provider LAB BLOOD ORDERAB LES Final Result Performing Organization Address [facility] Co de Phone Number [facility] [address] [place] [phone] * Hepatic Function Panel (05/17/2025 7:46 AM EDT) Pathologist [facility] Bilirubin, Total 0.4 0.0 - 1.0 mg/dL [facility] Bilirubin, Direct 0.1 0.0 - 0.5 mg/dL [facility] Aspartate Amino Transferase 28 5 - 31 U/L [facility] Alanine Aminotransferase 29 0 - 31 U/L [facility] Total Protein 7.1 6.5 - 8.0 g/dL [facility] Albumin Level 3.8 3.5 - 5.0 g/dL [facility] Alkaline Phosphatase 80 39 - 117 U/L [facility] 05/17/2025 7:46 AM EDT 05/17/2025 7:50 AM EDT Generic External Data Provider LAB BLOOD ORDERAB LES Final Result [facility] [address] [place] [phone] * Basic Metabolic Panel (05/17/2025 7:46 AM EDT) [facility] Sodium 142 135 - 145 mmol/L [facility] Potassium 4.6 3.3 - 5.1 mmol/L [facility] Chloride 107 96 - 108 mmol/L [facility] Carbon Dioxide 28 22 - 29 mmol/L [facility] Anion Gap 12 12 - 20 [facility] Urea Nitrogen (BUN) 15 9 - 16 mg/dL [facility] Creatinine, Serum 0.75 0.5 - 1.4 mg/dL [facility] Creatinine Clr Calc Pharmacy 77.1 [facility] Comment:Provided height and weight: 165.1 cm,65.771 kg.eGFR (calculated from the MDRD study equation) and eCrCl(calculated from the Cockcroft-Gault equation) are based ondifferent parameters and may not yield comparable results.If eCrCl result is absurd, please check patient'sheight/weight. Estimated Glomerular Filt Rate >60 [facility] Comment:Chronic Kidney Disea se: Estimated GFR < 60 mL/min/1.66k0Rwpxpv Kidney Disease: Estimated GFR < 15 mL/min/1.73m2 Glucose 86 60 - 115 mg/dL [facility] Calcium 9.2 8.4 - 10.2 mg/dL [facility] 05/17/2025 7:46 AM EDT 05/17/2025 7:50 AM EDT us Generic External Data Provider LAB BLOOD ORDERAB LES Final Result Performing Organization Address City/State/[facility] Co de Phone Number [facility] [address] [place] [address] [phone] * FL Esophagus Barium Swallow w/Air (04/18/2025 9:40 AM EDT) Anatomical Region Laterality Modality Head, Neck Radiographic Rachel ging 04/18/2025 9:40 AM EDT Narrative 04/18/2025 11:37 AM EDT [address] [address] Fluoroscopy Report Signed Patient: Karen Og MR#: [id number] 4 : 1970 Acct:[id number] Age/Sex: 54 / F ADM Date: 04/18/25 Loc: [facility]JA Attending Dr: Tammi oSrenson MD Ordering Physician: Tammi Burgess MD Date of Service: 04/18/25 Procedure(s): FL barium swallow with air Accession Number(s): [id number] cc: Tammi Burgess MD Reason for Exam: [...] 04/18/25 1134 DD/ 0940 TD/TT: 04/18/25 0949 [facility]: Procedure Note Donotuseinterpreter, Image - 04/18/[address] [address] Fluoroscopy Report Signed Patient: Karen Og MMR#: [id number] 4 : 1970Acct:[id number] Age/Sex: 54 / FADM Date: 04/18/25 Loc: HO.XRAY Attending Dr: Tammi Sorenson MD Ordering Physician: Tammi Burgess MD Date of Service: 04/18/25 Procedure(s): FL barium swallow with air Accession Number(s): [id number] cc: Tammi Burgess MD Reason for Exam: [...] 04/18/25 1134 DD/ 0940 TD/TT: 04/18/25 0949 [facility]: us Tammi Sorenson MD IMG FLUOROSCOPY P ROCEDURES Final Result * Leukocytes Stool Qualitative (04/13/2025 10:00 AM EDT) Leukocytes Stool Qualitative NEGATIVE NEGATIVE [facility] Stool 04/13/2025 10:0 0 AM EDT 04/13/2025 4:48 PM EDT Shravan Dunne MD LAB BODY FLUIDS AND STOOLS ORDER JEROMY Final Result [facility] [address] [place] [phone] * Stool - Gastrointestinal panel (04/13/2025 10:00 AM EDT) Campylobacter Not Detected Not Detect. [facility] Plesiomonas shigelloides Not Detected Not Detect. [facility] Salmonella Not Detected Not Detect. [facility] Vibrio Not Detected Not Detect. [facility] Vibrio cholerae Not Detected Not Detect. [facility] YERSINIA ENTEROCOLITICA Not Detected Not Detect. [facility] Enteroaggregative E. coli (EAEC) Not Detected Not Detect. [facility] Enteropathogenic E. coli (EPEC) Not Detected Not Detect. [facility] Enterotoxigenic E. coli (ETEC) lt/st Not Detected Not Detect. [facility] Shiga-like toxin-producing E. coli (STEC) stx1/stx2 Not Detected Not Detect. [facility] E coli O157 Not applicable Not Detect. [facility] Comment:E. coli containing t he O157 antigen are a subset ofShiga-like toxin- producing E. coli (STEC). Shigella/Enteroinvasive E. coli (EIEC) Not Detected Not Detect. [facility] [facility] Cryptosporidium Not Detected Not Detect. [facility] Cyclospora cayetanensis Not Detected Not Detect. [facility] Entamoeba histolytica Not Detected Not Detect. [facility] Giardia lamblia Not Detected Not Detect. [facility] Adenovirus F 40/41 Not Detected Not Detect. [facility] Astrovirus Not Detected Not Detect. [facility] Norovirus GI/GII Not Detected Not Detect. [facility] Rotavirus A Not Detected Not Detect. [facility] Sapovirus Not Detected Not Detect. [facility] Comment: All results must be [...] assay is performed by Multiplexed PCR, utilizing [employer]. Stool Rectal contents / Unknown 04/13/2025 10:00 AM EDT 04/13/2025 4:48 PM EDT us Shravan Dunne MD LAB MICROBIOLOGY - GENERAL ORDER JEROMY Final Result [facility] [address] [place] [phone] * (ABNORMAL) Comprehensive Metabolic Panel (04/12/2025 10:09 AM EDT) Sodium 141 135 - 145 mmol/L [facility] Potassium 4.5 3.3 - 5.1 mmol/L [facility] Chloride 104 96 - 108 mmol/L [facility] Carbon Dioxide 30(H) 22 - 29 mmol/L [facility] Anion Gap 12 12 - 20 [facility] Urea Nitrogen (BUN) 15 9 - 16 mg/dL [facility] Creatinine, Serum 0.69 0.5 - 1.4 mg/dL [facility] Estimated Glomerular Filt Rate >60 [facility] Comment:Chronic Kidney Disea se: Estimated GFR < 60 mL/min/[id number] Kidney Disease: Estimated GFR < 15 mL/min/1.73m2 Glucose 93 60 - 115 mg/dL [facility] Calcium 9.2 8.4 - 10.2 mg/dL [facility] Bilirubin, Total 0.3 0.0 - 1.0 mg/dL [facility] Aspartate Amino Transferase 23 5 - 31 U/L [facility] Alanine Aminotransferase 11 0 - 31 U/L [facility] Total Protein 6.9 6.5 - 8.0 g/dL [facility] Albumin Level 3.8 3.5 - 5.0 g/dL [facility] Alkaline Phosphatase 66 39 - 117 U/L [facility] Blood Venous blood specimen / Unknown 04/12/2025 10:09 AM EDT 04/12/2025 11:14 AM EDT us Shravan Dunne MD LAB BLOOD ORDERABLES Final Resul t [facility] [address] [place] [phone] * BI Mammogram Screening Tomosynthesis Bilateral (02/27/2025 2:00 PM EDT) Anatomical Region Laterality Modality Breast Bilateral Mammography 02/27/2025 2:00 PM EDT Narrative 03/09/2025 8:24 AM EDT [facility] [address] [place] [address] Mammography Report Signed Patient: Karen Og MR#: [id number] 4 : 1970 Acct:[id number] Age/Sex: 54 / F ADM Date: 02/27/25 Loc: HOShonnaMAMMO Attending Dr: Tammi Sorenson MD Ordering Physician: Tammi Burgess MD Re sults: 1Negative Date of Service: 02/27/25 Follow Up: 1 Year From Orig inal Mammogram Procedure(s): MM tomosynthesis screening BI Accession Number(s): [id number] cc: Tammi Burgess MD EXAMINATION: MM SCREENING [...] 03/09/25 0821 DD/ 1400 TD/TT: 02/27/25 1412 [facility]: Procedure Note Donotuseinterpreter, Image - 03/09/2025 [facility] [address] [place] [address] Mammography Report Signed Patient: Karen Og MMR#: [id number] 4 : 1970Acct:[id number] Age/Sex: 54 / FADM Date: 02/27/25 Loc: MAMMO Attending Dr: Tammi Sorenson MD Ordering Physician: Tammi Burgess sults: 1Negative Date of Service: 02/27/25Follow Up: 1 Year From Orig inal Mammogram Procedure(s): MM tomosynthesis screening BI Accession Number(s): [id number] cc: Tammi Burgess MD EXAMINATION: MM SCREENING [...] 03/09/25 0821 DD/ 1400 TD/TT: 02/27/25 1412 [facility]: us Tammi Sorenson MD IMG BI PROCEDURES Final Result * Hepatitis C Antibody with Reflex to HCV, RNA, Quantitative, Real-Time PCR (02/06/2025 10:04 AM EDT) Hepatitis C Antibody Nonreactive Nonreactive [facility] Comment:Antibodies to HCV no t detected; does not exclude early acuteHCV infection. Blood Venous blood specimen / Unknown 02/06/2025 10:04 AM EDT 02/06/2025 11:11 AM EDT us Tammi Sorenson MD LAB BLOOD ORDERAB LES Final Result [facility] [address] [place] [phone] * HIV-1/2 Antigen and Antibodies, Fourth Generation, with Reflexes (02/06/2025 10:04 AM EDT) HIV AB/AG Nonreactive Nonreactive [facility] Comment:HIV-1 p24 Ag and/or HIV-1/HIV-2 Ab not detected.A test result that is nonreactive does not exclude thepossibility of exposure to or infection with HIV-1 and/orHIV-2. Nonreactive results in this assay for individualswith prior exposure to HIV-1 and/or HIV-2 may be due toantigen and antibody levels that are below the limit ofdetection of this assay.The [employer] HIV Ag/Ab Combo assay result andsupplemental assay results should be interpreted inconjunction with the patient's clinical presentation,history and other laboratory results. If the results areinconsistent with clinical evidence, additional testing issuggested to confirm the result. Blood Venous blood specimen / Unknown 02/06/2025 10:04 AM EDT 02/06/2025 11:11 AM EDT us Tammi Sorenson MD LAB BLOOD ORDERAB LES Final Result [facility] [address] [place] [phone] * Hemoglobin A1c (02/06/2025 10:04 AM EDT) Pathologist [facility] Hemoglobin A1c 5.5 <6.0 % [facility] Comment:Hemoglobin A1C Refer ence Range Adults: 4.8 - 6.0 % Non diabetic: < 6.0 % Goal: < 7.0 %Additional Action Suggested: > 8.0 %Note: Hemoglobin A1c results are invalid for patients with abnormal amounts of HbF. Blood transfusions may impact the HbA1c concentration in the patient sample. Estimated Average Glucose 111 mg/dL [facility] Comment:eAG = Estimated ave rage glucose which is %A1C expressed asaverage glucose, using the formula of the C4U-FztklarNzaxtgb Glucose study (ADAG), Diabetes Care, Vol.31,#8,2007 Blood Venous blood specimen / Unknown 02/06/2025 10:04 AM EDT 02/06/2025 11:11 AM EDT Tammi Sorenson MD LAB BLOOD ORDERAB LES Final Result [facility] [address] [place] [phone] * Hm Colonoscopy (05/28/2022 1:55 PM [...] Not Detected [facility] Comment: Methodology: Insole Taper-Mediated Amplification This assay detects E6/E7 viral messenger RNA (mRNA) from 14 high-risk HPV types (16,18,31,33,35,39,45,51,52,56,58,59,66,68). The analytical performance characteristics of this assay have been determined by [employer]. The modifications have not been cleared or approved by the FDA. This assay has been validated pursuant to the CLIA regulations and is used for clinical purposes. For additional information, please refer to http://education.[employer].Sendmybag/faq/OAN000x0 (This link if provided for information/ educational purposes only.) THIS TEST WAS PERFORMED AT: [facility] [address] [place] [address] [address],[place] [address] AMY BLANCAS MD 08/15/2021 1:40 PM EST Historical Provider HISTORICAL/NON ORDERABLE LABS Final Result Performing Organization Address City/[facility]/ZIP Co de Phone Number [facility] [address] [place] [address] * THINPREP PAP (01/11/2021 11:51 AM EDT) [...] along with historic and current clinical information. Electrotherapist : SEE COMMENT [facility] Comment: GSG, CT(ASCP) CT screening location: [place] [address] Interpretation/R esult: Negative for intraepithelial lesion or malignancy. [facility] LMP: NONE GIVEN [facility] Prev. BX: NONE GIVEN [facility] Prev. PAP: NONE GIVEN [facility] SOURCE: None given [facility] Statement Of Adequacy: SEE COMMENT [facility] Comment: Satisfactory for evaluation. Endocervical/transformation zone component present. 01/11/2021 11:5 1 AM EDT us Historical Provider MD LAB PATHOLOGY ORDERABLES Final Result [facility] [address] from Last 3 Months or Most Recently Relevant to Health Maintenance Insurance [email or web address] ST[place] ADULT DENTAL - HSN FULL (MEDICAID) Care Teams Helper [employer] Relationship Specialty Start Date End Date Tammi Burgess MD [address] [place] [address] PCP - General Internal Medicine 04/13/23
--- OUTSIDE RECORDS SUMMARY | 2025-06-29 11:59 | XMS_ITS | Encounter Summary ---
Author Organization [employer] Address [address] [facility] 7t [place] [address] Care Team Providers Care Product Developer Name Role Phone Tammi Burgess MD Primary Care Pro vider Reason for Visit * Reason Onset Date Comments Lab Orders 05/25/2025 Encounter Details Date Type Department Care Team (Latest Contact Info) Description 05/25/2025 Results Follow-Up [facility] [address] [place] [address] Stephani Crystal RN Ova and Parasites, Strongyloides [...] RN - 05/25/2025 9:21 AM EDT Called [facility], spoke with Elena Davis. The [...] Description 08/01/2025 9:30 AM EST Office Visit [facility] ADULT DENTAL [address] [place] [address] Bozena Rader [address] [place] [address] documented as of this encounter Visit Diagnoses Not on filedocumented in this encounter Additional Health Concerns Assessment Noted Time PHQ-9 Depression Total Score: 8 12/27/19 25 3:12 PM EDT documented as of this encounter Care Teams Product Developer Relationship Specialty Start Date End Date Tammi Burgess MD [address] [place] [address] PCP - General Internal Medicine 04/13/23 documented as of this encounter
--- OUTSIDE RECORDS SUMMARY | 2025-06-29 12:00 | XMS_ITS | Encounter Summary ---
Author Organization [employer] Address [address] [facility] 7 [place] [address] Care Team Providers Care Refinery Technician Name Role Phone Tammi Burgess MD Primary Care Pro vider Reason for Visit * Reason Onset Date Comments chart prep 06/28/2025 Encounter Details Date Type Department Care Team ([facility] st Contact Info) Description 06/28/[address] [facility] [address] [place] [address] Tammi Burgess MD [address] [place], [place] [phone] chart prep Social History Tobacco Use Types Packs/Day Years [...] encounter Miscellaneous Notes * Telephone Encounter - Raeann Pollack [place] - 06/28/2025 10:10 AM EST Chart Prep Labs: done Images: done Referrals: complete Vaccines due: Covid, Flu, and PCV20 Screenings: None Overdue care gaps: SBIRT documented in this encounter Plan of Treatment Upcoming Encounters Date Type Department Care Team (Late st Contact Info) Description 08/01/2025 9:30 AM EST Office Visit [facility] ADULT DENTAL [address] [place] [address] Prasanth, Bozena [address] [place] [address] documented as of this encounter Visit Diagnoses Not on filedocumented in this encounter Additional Health Concerns Assessment Noted Time PHQ-9 Depression Total Score: 8 12/27/19 25 3:12 PM EDT documented as of this encounter Care Teams Refinery Technician Relationship Specialty Start Date End Date Tammi Burgess MD [address] [place] [address] PCP - General Internal Medicine 04/13/23 documented as of this encounter
--- OUTSIDE RECORDS SUMMARY | 2025-06-29 12:00 | XMS_ITS | Encounter Summary ---
Author Organization [employer] Address [address] [facility] 7t [place] [address] Care Team Providers Care Final Coat Sprayer Name Role Phone aTmmi Burgess MD Primary Care Pro vider Reason for Visit * Reason Comments Med Refill Encounter Details Date Type Department Care Team (Late st Contact Info) Description 06/26/2025 Refill [facility] [address] [place] [address] Tammi Burgess MD [address] [place] [address] Social History Tobacco Use Types Packs/Day Years [...] Description 08/01/2025 9:30 AM EST Office Visit [facility] ADULT DENTAL [address] [place] [address] Prasanth, Bozena [address] [place] [address] documented as of this encounter Visit Diagnoses Not on filedocumented in this encounter Additional Health Concerns Assessment Noted Time PHQ-9 Depression Total Score: 8 12/27/19 25 3:12 PM EDT documented as of this encounter Care Teams Final Coat Sprayer Relationship Specialty Start Date End Date Tammi Burgess MD [address] [place] [address] PCP - General Internal Medicine 04/13/23 documented as of this encounter
--- OUTSIDE RECORDS SUMMARY | 2025-06-29 12:00 | XMS_ITS | Encounter Summary ---
Author Organization [employer] Address [address] [facility] 7t [place] [address] Care Team Providers Care Solutions Sales Executive Name Role Phone Tammi Burgess MD Primary Care Pro vider Encounter Details Date Type Department Care Team (Late st Contact Info) Description 08/06/2023 Orders Only [facility] MED[facility] [address] [place], [place] [phone] Judy Prieto MD [address] [place], [place] [phone] Acute pain of right knee (Primary Dx); [...] Description 08/01/2025 9:30 AM EST Office Visit [facility] ADULT DENTAL [address] [place] [address] Prasanth, Bozena [address] [place] [address] documented as of this encounter Visit Diagnoses Diagnosis Acute pain of right knee- Primary Effusion of right knee Dislocation of right knee with medial meniscus tear, initial encounter documented in this encounter Additional Health Concerns Assessment Noted Time PHQ-9 Depression Total Score: 0 07/23/20 11:15 AM EST documented as of this encounter Care Teams Solutions Sales Executive Relationship Specialty Start Date End Date Tammi Burgess MD [address] [place] [phone] PCP - General Internal Medicine 04/13/23 documented as of this encounter
--- OUTSIDE RECORDS SUMMARY | 2025-06-29 12:00 | XMS_ITS | Encounter Summary ---
Author Organization [employer] [facility] Address [address] [place] [address] 7 [place] [address] Care Team Providers Care Vocal Music Teacher Name Role Phone Charito LawrenceP Primary Care Provider Tammi Downs MD Primary Care Pro vider Encounter Details Date Type Department Care Team (Latest Contact Info) Description 07/29/2018 Abstract [facility] Dental, Provider, DDS Social History Tobacco [...] Description 08/01/2025 9:30 AM EST Office Visit [facility] ADULT DENTAL [address] [place] [address] Prasanth, Bozena [address] [place] [address] documented as of this encounter Visit Diagnoses Not on filedocumented in this encounter Care Teams Vocal Music Teacher Relationship Specialty Start Date End Date Charito Lawrence FNP PCP - General Family Medicine 05/17/21 04/12/23 Tammi Burgess MD [address] [place] [address] PCP - General Internal Medicine 04/13/23 documented as of this encounter
--- OUTSIDE RECORDS SUMMARY | 2025-06-29 12:00 | XMS_ITS | Encounter Summary ---
Author Organization [employer] Address [address] [place] [address] 7 [place] [address] Care Team Providers Care Wagon Driver Salesperson Name Role Phone Tammi Burgess MD Primary Care Pro vider Reason for Referral * Consultation (Routine) - Closed Specialty Diagnoses / Procedures Referred By Contac t Referred To Contact Orthopaedic Surgery Diagnoses Knee pain, unspecified chronicity, unspecified laterality Tammi Burgess MD [address] [place] [phone] Phone: tel: fax: [facility] [address] [place] [address] Phone: tel: Referral ID Status Reason Start Date Expiration Date V isits Requested Visits Authorized [id number] Closed Specialty Services Required 11/24/2024 11/24/2025 6 6 Encounter Details Date Type Department Care Team (Late st Contact Info) Description 12/07/2024 Orders Only [facility] MEDICINE [address] [place] [address] [phone] Tammi Burgess MD [address] [place] [address] [phone] Knee pain, unspecified chronicity, unspecified laterality (Primary [...] Description 08/01/2025 9:30 AM EST Office Visit [facility] ADULT DENTAL [address] [place] [address] Prasanth Bozena [address] [place] [address] Scheduled Referrals Name Type Priority Associated Diagnoses [...] documented as of this encounter Care Teams Wagon Driver Salesperson Relationship Specialty Start Date End Date Tammi Burgess MD [address] [place] [phone] PCP - General Internal Medicine 04/13/23 documented as of this encounter
--- OUTSIDE RECORDS SUMMARY | 2025-06-29 12:00 | XMS_ITS | Encounter Summary ---
Author Organization [employer] Address [address] [facility] 7t [place] [address] Care Team Providers Care Armored Car Guard And Driver Name Role Phone Tammi Burgess MD Primary Care Pro vider Encounter Details Date Type Department Care Team (Latest Contact Info) Description 06/29/2025 Travel Social History Tobacco Use Types Packs/Day [...] 9:30 AM EST Office Visit [facility] [address] [place], [place] [phone] Bozena Rader [address] [place] [address] documented as of this encounter Visit Diagnoses Not on filedocumented in this encounter Additional Health Concerns Assessment Noted Time PHQ-9 Depression Total Score: 8 12/27/19 25 3:12 PM EDT documented as of this encounter Care Teams Armored Car Guard And Driver Relationship Specialty Start Date End Date Tammi Burgess MD [address] [place] [address] PCP - General Internal Medicine 04/13/23 documented as of this encounter
--- OUTSIDE RECORDS SUMMARY | 2025-06-29 12:00 | XMS_ITS | Encounter Summary ---
Author Organization [employer] Address [address] [place] [address] 7 [place] [address] Care Team Providers Care Meat Hostess Name Role Phone Tammi Burgess MD Primary Care Pro vider Reason for Visit * Reason Onset Date Comments Nurse Triage 07/16/2023 Encounter Details Date Type Department Care Team ([facility] st Contact Info) Description 07/16/2023 Telephone [facility] MEDICINE [address] [place] [address] Tammi Burgess MD [address] [place] [address] Nurse Triage Social History Tobacco Use Types [...] 07/16/2023 4:32 PM EST Triage call with Gordon Lead Rider [place] [id number] Pt requests for Pt to speak for Pt. Pt has acute right knee pain. Pt has been seen in [facility] 07/09/23. Pt was prescribed tylenol 500mg, brace, voltaren gel and xrays. Xrays have been done. Pt isasking what xray results are teletypewriter installer advised that there is evidence of osteoarthritis, [...] Description 08/01/2025 9:30 AM EST Office Visit [facility] ADULT DENTAL [address] [place] [address] Bozena Rader [address] [place], [place] [phone] documented as of this encounter Visit Diagnoses Not on filedocumented in this encounter Care Teams Meat Hostess Relationship Specialty Start Date End Date Tammi Burgess MD [address] [place] [address] PCP - General Internal Medicine 04/13/23 documented as of this encounter
[2025-07-05 16:19] LABS: IgE Antibody (Anti-IgE IgG) 27 ng/mL (<168)
== END 2025-06-29 10:07 | disposition home or self-care (01) ==
LOC: HO.HHCL 10:06
PROVIDERS: PCP Student in an Organized Health Care Education/Training Program; Visit Provider Student in an Organized Health Care Education/Training Program
DX: D72.10 Eosinophilia, unspecified (principal)
CPT/HCPCS: 36415; 83520; 85025

== ENCOUNTER 2025-07-06 09:22 | Outpatient (AMB) | payer MEDICAID, SELFPAY ==
--- NOTE | 2025-07-06 09:25 | A.OFFVIS_ITS ---
Vital Signs 07/06/25 09:27 Height 5 ft 2 in Weight 157 lb BMI 28.7 BP 110/59 L Blood Pressure Location Lt brachial Position Sitting Pulse 81 Intake Visit Reasons: epigastric pain Intake Note: Patient follow up for EGD, lab and fecal/stool results. Patient cc: abdominal pain is much better, constipation and acid reflux on and off. Patient is feeling much better from GI issues. Workers Compensation Claims Analyst Required: Yes Workers Compensation Claims Analyst Name: JARVIS Heard Accompanied by: Self / Same As Patient Allergies aspirin (ASPIRIN) Allergy (Severe, Verified 07/06/25 09:25) SWELLING, facial swelling Medication List - Last Reconciled 07/06/25 by Edith Vásquez CNP celecoxib (Celebrex) 200 mg PO DAILY PRN clonazepam (Klonopin) 0.5 mg PO BEDTIME 30 days cyclobenzaprine 5 mg PO BEDTIME PRN dicyclomine 10 mg PO TID divalproex (Depakote) 500 mg orally 1 tab in AM and 2 tabs at bedtime; 90 days famotidine 20 mg PO BID gabapentin 300 mg PO TID lidocaine 5% patches topical ondansetron HCl 4 mg PO Q8H PRN pantoprazole 40 mg PO QAM pregabalin 25 mg PO BID triamcinolone acetonide 0.1% appl topical HPI HPI epigastric pain: Details: Patient is a 54-year-old female with PMH of anxiety, fibromyalgia,migraine, epilepsy. Referred for further evaluation of acid reflux. Follow-up visit to review her upper endoscopy results. The procedure was sherif cated for epigastric pain, which was partially relieved by omeprazole 40 mg twice daily. Her symptoms significantly improved after discontinuing other medications, including omega-3. An upper endoscopy performed on 06/06/2025 revealed an irregular Z-line, active esophagitis, and duodenitis, with suspicion for gastroparesis. The procedure ruled out the presence of an ulcer or malignancy. The medication regimen was changed from omeprazole to pantoprazole and famotidine 20 mg twice daily prior to the procedure. Previous lab workup included testing for celiac disease and H. pylori, both of which were negative. Her fecal calprotectin was borderline, and she had a normal lipase, amylase, and CRP. The patient also reports a long-standing history of constipation, characterized by days without a bowel movement, which has not been previously discussed in detail. She denies any blood in her stool. [facility] Medical History (Updated 07/06/25 @ 10:06 by Edith Vásquez CNP) Delayed gastric emptying Constipation Esophagitis determined by endoscopy Esophageal dysmotility Diarrhea Chronic gastroesophageal reflux disease Epigastric pain Epilepsy Seizure disorder Dizziness Osteoarthritis of knees, bilateral Migraine Anxiety disorder Fibromyalgia Seizure Surgical History History of esophagogastroduodenoscopy (EGD) H/O endoscopy H/O colonoscopy with polypectomy History of cholecystectomy History of tubal ligation Family History Maternal Grandmother Diabetes Father HTN (hypertension) Mother HTN (hypertension) Social History Household Members: Spouse Household Members Other:: son Housing: House Are you a primary md do resident urgent care to a significant other at home: No Do you presently have visiting nurse or other home services: No Alcohol intake: current Alcohol intake frequency: holidays/special occasions only Patient Tobacco Use Status: Never used Tobacco Current occupational status: employed 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 Sexual orientation: Straight/Heterosexual Gender identity: Female Female Reproductive History Menstrual Age of Menarche: 10 Review of Systems Const Reports as per HPI ENT Reports as per HPI Card Reports as per HPI Resp Reports as per HPI GI Reports as per HPI Reports as per HPI Physical Exam Vital Signs: Last Vital Signs Pulse 81 07/06/25 09:27 BP 110/59 L 07/06/25 09:27 BMI result Body Mass Index 28.7 Const General: healthy appearing, no acute distress and well developed Nutritional Appearance: average body habitus Orientation/consciousness: patient oriented x3 HEENT Head: Yes normal to inspection, Yes normocephalic and Yes atraumatic Face and sinus: Yes normal facial exam Eyes General: appearance normal, both eyes and all related structures Neck Neck: Yes normal visual inspection Resp Effort & Inspection: normal respiratory effort, able to speak in complete sentences, no tracheal deviation and symmetric chest movement Cardio Jugular venous distension: no JVD Neuro General: patient oriented x3 Gait exam (Neuro): Normal gait present Psych Appearance: grossly normal Mental Status: mental status grossly normal Speech and movement: Normal speech and movement present Affect: normal affect Attitude: cooperative Thought process: Normal thought process present Thought content: Normal thought content present Insight: Good insight present (Psych) Judgement: Good judgement present (Psych) Results Reviewed Results Reviewed: ADDENDUM there was minimal peristalsis, if ongoing sx can consider GES to r/o gastroparesis Addendum Dictated By: Julissa Brush MD Addendum Signed By: 06/06/251314 Addendum Cosigned By: DD/ /20/1315 TD/TT: 06/06/2506/20/1315 Operative Note Operative Note Date of Service: 06/06/25 Narrative: Procedure Description: EGD Indication: GERD< epigastric pain Anesthesia: MAC FLEXIBLE TRANSORAL UPPER GASTROINTESTINAL ENDOSCOPY UPPER ENDOSCOPY Consent: Indications for the procedure and potential complications of bleeding, perforation, reaction to medications and missed diagnosis were discussed with the patient and informed consent was obtained. Instrument: Olympus GIF H 190 J mid size upper endoscope Monitoring: Vital signs and clinical assessment, continuous EKG monitoring, Pulse oximetry, Carbon Dioxide monitoring and blood pressure monitoring were done throughout the procedure. Procedure: The patient was placed in the left lateral decubitis position and pre-procedure medications were administered and a bite block was placed. The endoscope was inserted into the mouth and advanced under direct vision to the third part of duodenum. A careful inspection was made as the upper endoscope was withdrawn including a retroflexed examination of the proximal stomach; Findings and interventions are described below. Findings: Larynx:normal Esophagus: GE junction at 37 cm, diaphragm hiatus at 37 cm, irregular Z line, bx taken from GEJ and distal/prox esophagus Stomach: mild erythema . Biopsies were obtained. Grade 2 flap valve on retroflexed examination of the cardia. Duodenum: mild duodenitis , bx taken also for disaccharidases Intervention: Biopsies as noted above, Impression/Findings: irregular Z line duodenitis PLAN: await bx GERD precautions PATHOLOGY: Collected: 06/06/25 Location: [facility] Received: 06/06/25 Diagnosis A. Duodenum, biopsy: Duodenal mucosa within normal limits. B. Stomach, biopsy: Antral-type and oxyntic mucosa with mild chronic inactive inflammation; no Helicobacter organisms seen. C. EG junction, biopsy: - Cardiofundic-type mucosa with moderate chronic inactive inflammation; no intestinal metaplasia seen. - Active esophagitis (maximum eosinophil count over 30 per high powered field). D. Esophagus, distal, biopsy: Squamous epithelium within normal limits; no inflammation seen. E. Esophagus, proximal, biopsy: Squamous epithelium within normal limits; no inflammation seen. Clinical History Pre-Op Dx: ABD pain Post-Op Dx: Possible gastroparesis, irregular Z line, duodenitis Assessment & Plan Assessment & Plan (1) Esophagitis determined by endoscopy: Comment: 06/06/25 EGD- Possible gastroparesis, irregular Z line, Active esophagitis, duodenitis Code(s): K20.90 - Esophagitis, unspecified without bleeding Category: Medical Plan: The patient's esophagitis and duodenitis, confirmed by upper endoscopy, are being managed medically. - She will continue her current regimen of pantoprazole 40 mg QD and famotidine 20 mg twice daily. - Lifestyle modifications, including avoiding trigger foods such as spicy, fatty, and greasy items, have been reinforced. - Additional guidance includes maintaining hydration, avoiding overeating, and not lying down after meals. (2) Constipation: Code(s): K59.00 - Constipation, unspecified Category: Medical Qualifiers: Constipation type: unspecified constipation type Qualified Code(s): K59.00 - Constipation, unspecified Plan: For her chronic constipation, the initial plan is to implement dietary and lifestyle changes. - This includes increasing fiber and water intake. - If these measures are not effective, medical management with magnesium oxide or laxative will be considered. (3) Delayed gastric emptying: Code(s): K30 - Functional dyspepsia Category: Medical Plan: Suspected. Although her symptoms have improved, the patient has requested further evaluation for possible gastroparesis, a finding suggested on her endoscopy to rule out delayed gastric emptying. - A gastric emptying study will be ordered. - The patient will be contacted by the radiology department to schedule the test. - A follow-up visit will be scheduled after the results of the gastric emptying study are available. Plan Follow-up after GES or sooner as needed Time: I spent a total of 25 minutes on the date of encounter which includes: Preparing to see the patient (reviewed previous documentation, test results and medical history) Performing a medically appropriate exam and/or evaluation Ordering medications, tests, and procedures Documenting clinical information in the health record Coding Level of Care Code Established Pt Est Pt Level 3 (76066) Patient Type Established Diagnoses Esophagitis determined by endoscopy K20.90 Constipation, unspecified constipation type K59.00 Constipation type: unspecified constipation type Delayed gastric emptying K30
[2025-07-06 09:27] VITALS: BP 110/59; PULSE 81; BMI 28.7
== END 2025-07-06 10:01 | disposition home or self-care (01) ==
LOC: HO.HGI 09:23
PROVIDERS: PCP Student in an Organized Health Care Education/Training Program; Visit Provider Nurse Practitioner Family
DX: K20.90 Esophagitis, unspecified without bleeding (principal); K59.00 Constipation, unspecified; K30 Functional dyspepsia
CPT/HCPCS: 99213

== ENCOUNTER → 2025-07-06 09:22 | Outpatient (BNVA) | payer MEDICAID, SELFPAY | PROVIDERS: PCP Student in an Organized Health Care Education/Training Program; Visit Provider Nurse Practitioner Family | DX: K20.90 Esophagitis, unspecified without bleeding (principal); K29.80 Duodenitis without bleeding; K59.09 Other constipation; K30 Functional dyspepsia; Z79.899 Other long term (current) drug therapy | CPT/HCPCS: 99212 ==